=== PATIENT | male | born 1955 | race Caucasian/White ===

== ENCOUNTER → 2018-06-14 | Outpatient (CLI) | payer MEDICARE ==
--- NOTE | 2018-06-14 17:11 | XR ---
EXAMINATION TYPE: XR ankle complete LT DATE OF EXAM: 06/14/2018 COMPARISON: NONE HISTORY: Contusion. Pain TECHNIQUE: 3 views FINDINGS: Ankle mortise is anatomic. I see no fracture nor dislocation. There is mild lateral soft ti ssue swelling. IMPRESSION: Mild soft tissue swelling. No fracture.
--- NOTE | 2018-06-14 17:12 | XR ---
EXAMINATION TYPE: XR foot complete LT DATE OF EXAM: 06/14/2018 COMPARISON: NONE HISTORY: Contusion and pain TECHNIQUE: 3 views FINDINGS: I see no fracture nor dislocation. Metatarsals are intact. The joint spaces are normal. IMPRESSION: Negative left foot exam.
== END | disposition home or self-care (01) ==
LOC: RADXRYALE 16:23
PROVIDERS: ATTEND Physician Assistant Medical
DX: M79.672 Pain in left foot (principal); M25.572 Pain in left ankle and joints of left foot

== ENCOUNTER → 2018-07-19 | Outpatient (CLI) | payer MEDICARE ==
--- NOTE | 2018-07-19 14:35 | US ---
EXAMINATION TYPE: US venous doppler duplex LE BI DATE OF EXAM: 07/19/2018 2:19 PM COMPARISON: NONE CLINICAL HISTORY: 62-year-old male M79.604,M79.605 PAIN IN BOTH LEGS. Pain in bilateral legs, wound l eft foot. SIDE PERFORMED: Bilateral TECHNIQUE: The lower extremity deep venous system is examined utilizing real time linear array sonog eri with graded compression, doppler sonography and color-flow sonography. FINDINGS: VESSELS IMAGED: External Iliac Vein (EIV) Common Femoral Vein Deep Femoral Vein Greater Saphenous Vein * Femoral Vein Popliteal Vein Small Saphenous Vein * Proximal Calf Veins (* superficial vessels) Right Leg: Positive for DVT in the right CFV to the proximal calf veins Left Leg: Negative for DVT. No sonographic evidence for venous insufficiency. IMPRESSION: 1. Exam positive for DVT within the right lower extremity extending from the common femoral vein down into the upper calf. 2. No evidence for DVT within the left lower extremity imaged from the groin to the upper calf. Building Custodian called the ordering physician's office at the completion of the exam.
== END | disposition home or self-care (01) ==
LOC: RADUSWWP 13:46
PROVIDERS: ATTEND Podiatrist
DX: I82.4Z1 Acute embolism and thrombosis of unspecified deep veins of right distal lower extremity (principal); I82.411 Acute embolism and thrombosis of right femoral vein
CPT/HCPCS: 93970

== ENCOUNTER → 2019-06-29 | Outpatient (CLI) | payer MEDICARE ==
--- NOTE | 2019-07-04 15:16 | P.ARTDOP ---
Arterial Doppler LOWER EXTREMITY ARTERIAL DOPPLER: DATE OF SERVICE: 06/29/2019 Reason for study: Right leg pain. Doppler waveforms: Atypical throughout on the left. Atypical at the right femoral and monophasic below.. Pulse volume recording: []. Pressure gradients: The only measurement is the right ankle where there is a significant gradient. There is a gradient above the left low thigh and across the knee.. Ankle-brachial indices: 0.22 on the right and 0.54 on the left. Toe pressures: [] on the right, [] on the left Impression: Moderate left fem-pop disease with possible iliac component. Severe right fem-pop disease with significant right iliac component. Recommend consultation with vascular surgeon.
== END | disposition home or self-care (01) ==
LOC: RADUSWWP 13:47
PROVIDERS: ATTEND Family Medicine
DX: I77.89 Other specified disorders of arteries and arterioles (principal); E78.2 Mixed hyperlipidemia; I10 Essential (primary) hypertension
CPT/HCPCS: 93923

== ENCOUNTER 2019-12-21 15:23 | Inpatient (IN) | payer MEDICARE ==
--- NOTE | 2019-12-21 16:23 | ED ---
General Adult HPI - General Chief complaint: Shortness of Breath Stated complaint: PE Time Seen by Provider: 12/21/19 15:36 Source: EMS Mode of arrival: EMS Limitations: no limitations - History of Present Illness Initial comments: Dictation was produced using [employer] dictation software. please excuse any grammatical, word or spelling errors. Chief Complaint: 64-year-old male with past medical history of GERD, distal edema, hypertension COPD presents via transfer from [facility] for pulmonary embolus History of Present Illness: Patient is a 64-year-old male discharged from [facility] for pulmonary embolus. Patient has been having shortness of breath since Tuesday. They went to primary care physician for regular checkup. He was noted to have some wheezing. Patient is a daily smoker for several years. He was given breathing treatment and steroids. He was told to seek medical attention if he shortness of breath didn't improve. Today he began having some right anterior chest pain though sharp in nature and worse with deep inspiration. States the pain radiates to his left shoulder. He was evaluated at [facility] were he had a CT angios performed showing pulmonary embolus. Patient had small focal pulmonary embolus of the right lower lobe segmental branch subsegmental extension. Patient also had elevated troponin of 0.095. Patient was given nitroglycerin with improvement of symptoms. He denies any lower chin B symptoms. No history of blood clot. He does have history of skin cancer that was completely removed by excision. The ROS documented in this emergency department record has been reviewed and confirmed by me. Those systems with pertinent positive or negative responses have been documented in the HPI. All other systems are other negative and/or noncontributory. PHYSICAL EXAM: General Impression: Alert and oriented x3, not in acute distress HEENT: Normocephalic atraumatic, extra-ocular movements intact, pupils equal and reactive to light bilaterally, mucous membranes moist. Cardiovascular: Heart regular rate and rhythm, S1&S2 audible, no murmurs, rubs or gallops Chest: Diminished lung sounds with wheezing Abdomen: Bowel sounds present, abdomen soft, non-tender, non-distended, no organomegaly Musculoskeletal: Pulses present and equal in all extremities, no peripheral edema Motor: no focal deficits noted Neurological: CN II-XII grossly intact, no focal motor or sensory deficits noted Skin: Intact with no visualized rashes Psych: Normal affect and mood ED course: 64-year-old male presents to transfer from [facility] for pulmonary embolus. As upon arrival shows findings within acceptable limits. Patient is well-appearing. He denies any chest pain currently. Transfer documentation was reviewed in its entirety. Patient is not hypotensive. Labs from [facility] shows hemoglobin of 15.1, platelets of 251. White blood cell count of 12.47. Potassium 3.2, bicarb of 24, glucose 155, BUN 5, creatinine of 0.8, AST of 80, troponin of 0.095. Imaging studies were loaded into our electronic medical records. Discussed patient case with Dr. Tabares reports the patient is an appropriate patient for admission to hospital despite lack of EKOS. Patient's well-appearing. Patient be admitted. Discussed patient with Dr. Walsh was went except patient's care. Patient continued on heparin. EKG interpretation: Ventricular rate 89, sinus rhythm with frequent PVCs, AZ interval 182, QRS 76, QTC 513. No AZ prolongation, no QTC prolongation, no ST or T-wave changes noted. - Related Data Home Medications Medication Instructions Recorded Confirmed Atorvastatin [Lipitor] 20 mg PO DAILY 07/05/18 08/18/18 Cholecalciferol [Vitamin D3] 2,000 unit PO DAILY 07/05/18 08/18/18 Folic Acid 1 mg PO DAILY 07/05/18 08/18/18 Furosemide [Lasix] 40 mg PO DAILY 07/05/18 08/18/18 Multivitamin [Men's Multi-Vitamin] 1 each PO DAILY 07/05/18 08/18/18 [place]-3 Fatty Acids/Fish Oil [Fish 2 each PO DAILY 07/05/18 08/18/18 Oil 1,000 mg Softgel] Potassium Chloride [K-Tab ER] 10 meq PO DAILY 07/05/18 08/18/18 Ranitidine HCl [Zantac] 150 mg PO DAILY 07/05/18 08/18/18 Spironolactone 50 mg PO DAILY 07/05/18 08/18/18 cloNIDine HCL [Catapres] 0.2 mg PO DAILY 07/05/18 08/18/18 traMADol HCl [Ultram] 50 mg PO Q6HR PRN 07/05/18 08/18/18 Aspirin EC [Ecotrin Low Dose] 81 mg PO DAILY 08/04/18 08/18/18 Isosorbide Mononitrate ER [Imdur] 30 mg PO DAILY 08/04/18 08/18/18 Allergies Allergy/AdvReac Type Severity Reaction Status Date / Time lisinopril Allergy Swelling Verified 08/25/18 10:03 acetaminophen [From Tylenol] AdvReac LIVER Verified 08/25/18 10:03 PROBLEMS PER NSAIDS (Non-Steroidal AdvReac LIVER Verified 08/25/18 10:03 Anti-Inflamma PROBLEMS PER Review of Systems ROS Statement: Those systems with pertinent positive or pertinent negative responses have been documented in the HPI. ROS Other: All systems not noted in ROS Statement are negative. Past Medical History Past Medical History: GERD/Reflux, Hyperlipidemia, Hypertension, Liver Disease Additional Past Medical History / Comment(s): WOUND TO LT FOOT History of Any Multi-Drug Resistant Organisms: None Reported Additional Past Surgical History / Comment(s): COLONOSCOPY. BILAT CATARACTS REMOVED Past Anesthesia/Blood Transfusion Reactions: No Reported Reaction Past Psychological History: Anxiety Smoking Status: Current every day smoker Past Alcohol Use History: Daily Past Drug Use History: None Reported - Past Family History Mother Family Medical History: Hypertension Father Family Medical History: Hypertension General Exam Limitations: no limitations Course Vital Signs 12/21/19 15:26 Temperature 98.1 F Pulse Rate 65 Respiratory 20 Rate Blood Pressure 145/83 O2 Sat by Pulse 96 Oximetry Disposition Clinical Impression: Pulmonary emboli Disposition: ADMITTED IP TO THIS HOSP Condition: Fair Referrals: Omar Aguilar DO [Primary Care Provider] - 1-2 days Decision Time: 18:00
[2019-12-21] MEDS ORDERED: HEPARIN SODIUM,PORCINE 5,000 UNIT/ML 1 ML VIAL IV PRN (16:36)
[2019-12-21] MEDS ORDERED: ONDANSETRON 4 MG/2 ML VIAL IVP PRN (17:47)
[2019-12-21] MEDS ORDERED: NALOXONE 0.4 MG/ML 1 ML VIAL IV PRN (17:47)
[2019-12-21] MEDS ORDERED: SODIUM CHLORIDE 0.9% 1,000 ML IV SCH (18:00)
[2019-12-21] MEDS: HEPARIN SOD,PORK IN 0.45% NACL 25,000 UNIT in 0.45% NACL 1 250ML.BAG IV SCH (18:25)
--- NOTE | 2019-12-21 20:38 | HP ---
HISTORY AND PHYSICAL DATE OF SERVICE: 12/21/2019 CHIEF COMPLAINT: Shortness of breath. HISTORY OF PRESENT ILLNESS: This 63-year-old gentleman with a past medical history of hypertension, hyperlipidemia, history of liver disease, history of GERD, colonoscopy, history of anxiety being followed by Dr. Aguilar in the outpatient setting, not feeling well over the past several days. The patient had a cough and sputum and the patient was evaluated by primary care physician and was given steroids and bronchodilators and because of lack of improvement, the patient presented to [facility]. CT angio was done. The patient also complaining of deep respirations/pain. Patient also had some change in voice and as well as some stridor like breathing also. The patient had previous evaluation as well. The [facility] CTA showed a small pulmonary embolus in the right lower segment and patient admitted to the hospital for further evaluation and treatment. Troponins also indeterminate. There is no history of any fever, rigors or chills. No history of headache, loss of consciousness, seizures at this time. The patient also complaining of some vague chest pains. Otherwise, there is no history of trauma. PAST MEDICAL HISTORY: History of GERD, hypertension, hyperlipidemia, history of liver disease, history of left foot wound. MEDICATIONS: Prior to admission include home medication which are not confirmed include: 1. Ultram 50 mg q.6h p.r.n. 2. Clonidine 0.2 daily. 3. Aldactone 50 mg p.o. daily. 4. Zantac 150 mg p.o. daily. 6. Start-3 fatty acids. 7. Multivitamins one p.o. daily. 8. Imdur 30 mg p.o. daily. 9. Lasix 40 mg p.o. daily. 10.Folic acid 1 mg daily. 11.Vitamin D3 2000 daily. 12.Lipitor 20 mg p.o. daily. 13.Ecotrin 81 mg p.o. daily. ALLERGIES: LISINOPRIL, TYLENOL AND NSAIDS. FAMILY HISTORY: History of hypertension in the family. SOCIAL HISTORY: Continued smoking about at least 1 pack per day and a couple of beers every day according to him. REVIEW OF SYSTEMS: ENT: Diminished vision, diminished hearing. CARDIOVASCULAR SYSTEM: No angina or palpitations. RESPIRATORY: As mentioned earlier. GI as mentioned earlier. no dysuria or hematuria. NERVOUS SYSTEM: No numbness or weakness. ALLERGY/IMMUNOLOGY: No asthma or hayfever. MUSCULOSKELETAL as mentioned earlier. HEMATOLOGY/ONCOLOGY: No history of anemia. ENDOCRINE: No history of diabetes or hypothyroidism. CONSTITUTIONAL: As mentioned earlier. DERMATOLOGY: Negative. RHEUMATOLOGY negative. PSYCHIATRY as mentioned earlier. PHYSICAL EXAMINATION: The patient is alert and oriented times three. Pulse 90. Blood pressure is 134/99, respirations 16, temperature is normal. Pulse ox 97% on room air. HEENT: Oral mucosa moist. NECK is no jugular venous distention. No carotid bruit. No lymph node enlargement. Cardiovascular system: S1, S2 muffled. RESPIRATION: A few scattered rhonchi and crackles. Breath sounds diminished at the bases. Bilateral scattered rhonchi and crackles. The breathing efforts also increased. Stridor like noisy breathing present. Otherwise hoarseness of the voice also present. ABDOMEN: Soft, nontender. No mass palpable. LEGS: No edema. No swelling. NERVOUS SYSTEM: Higher functions as mentioned earlier. Moves all four limbs. No focal motor or sensory deficits. Lymphatics: No lymph nodes palpable in the neck, axillae or groin. SKIN: No ulcer, rash or bleeding. JOINTS: No active deforming arthropathy. LABS: Not available at this time. ASSESSMENT: 1. Shortness of breath, possibly chronic obstructive pulmonary disease acute exacerbation with acute purulent tracheobronchitis. 2. Acute pulmonary embolism right lower lobe. 3. History of continued ongoing nicotine dependence. 4. Troponin 0.095, indeterminate. 5. History of hypertension, hyperlipidemia. 6. History of chronic liver disease. 7. History of gastroesophageal reflux disease. 8. History of nicotine dependence. 9. History of anxiety. 10.History of ETOH. 11.FULL CODE. RECOMMENDATIONS AND DISCUSSION: In this 64-year-old gentleman who presented with multiple complex medical issues, we will monitor the patient closely, continue the current medications, management and symptomatic treatment. We will optimize bronchodilator treatment empiric antibiotics. IV heparin for pulmonary embolism. Consult Dr. Tabares. Otherwise, we will continue to monitor. Resume the home medications. Guarded prognosis because of multiple complex medical issues. Further recommendations to follow. A copy of dictation being forwarded to Dr. Aguilar who is the primary physician. MMODL / IJN: [id number] / MTDD
[2019-12-21 20:40] LABS: Glucose,Whole Blood 179 mg/dL (75-99)
[2019-12-21] MEDS: NICOTINE 14MG/24HR PATCH TRANSDERM SCH (20:43)
[2019-12-21] MEDS: PANTOPRAZOLE 40 MG/10 ML VIAL IVP SCH (20:47)
[2019-12-21] MEDS: methylPREDNISolone SOD SUCCI 125 MG/2 ML VIAL IV SCH (20:48)
[2019-12-21] MEDS: INSULIN ASPART (NovoLOG) 100 UNIT/ML VIAL SQ SCH (21:05)
[2019-12-21] MEDS ORDERED: POTASSIUM CHLORIDE ER 20 MEQ TAB.ER PO STA (21:51)
[2019-12-21] MEDS ORDERED: MAGNESIUM SULFATE-D5W PMX 1 GM in DEXTROSE/WATER 1 100ML.BAG IVPB ONE (22:00)
[2019-12-21] MEDS: BUDESONIDE 1 MG/2 ML NEBU INHALATION SCH (23:18)
[2019-12-21] MEDS: ALBUTEROL NEBULIZED 2.5 MG/3 ML INHALATION PRN (23:18)
[2019-12-21] MEDS: FORMOTEROL FUMARATE 20 MCG/2 ML NEBU INHALATION SCH (23:18)
[2019-12-22] MEDS: methylPREDNISolone SOD SUCCI 125 MG/2 ML VIAL IV SCH ×5 (00:12→23:10)
[2019-12-22 06:10] LABS: Glucose,Whole Blood 174 mg/dL (75-99)
[2019-12-22] MEDS: INSULIN ASPART (NovoLOG) 100 UNIT/ML VIAL SQ SCH ×5 (06:25→20:42)
[2019-12-22 06:30] LABS: Basophils % (A) 0 %; Eosinophils # (A) 0.1 k/uL (0-0.7); Eosinophils % (A) 0 %; HCT 38.5 % (39.0-53.0); HGB 13.3 gm/dL (13.0-17.5); Lymphocytes # (A) 1.2 k/uL (1.0-4.8); Lymphocytes % (A) 6 %; MCH 32.7 pg (25.0-35.0); MCHC 34.4 g/dL (31.0-37.0); Mean Platelet Volume 8.4; Monocytes # (A) 0.8 k/uL (0-1.0); Monocytes % (A) 4 %; Neutrophils # (A) 16.5 k/uL (1.3-7.7); Neutrophils % (A) 89 %; Platelet Count 260 k/uL (150-450); RBC 4.06 m/uL (4.30-5.90); RDW 12.6 % (11.5-15.5); WBC 18.6 k/uL (3.8-10.6)
[2019-12-22 06:33] LABS: MCV 94.9 fL (80.0-100.0)
--- NOTE | 2019-12-22 07:07 | XR ---
EXAMINATION TYPE: XR chest 1V portable DATE OF EXAM: 12/22/2019 CLINICAL HISTORY: Difficulty breathing progress study. TECHNIQUE: Single AP portable upright view of the chest is obtained. COMPARISON: Outside chest x-ray and CT chest from one day earlier FINDINGS: Background chronic emphysematous change with new left basilar alveolar and interstitial op acities. Right lung remains clear. Cardiac silhouette size remains within normal limits. Osseous stru ctures are demineralized. IMPRESSION: Chronic emphysematous change with new left basilar acute infiltrate.
[2019-12-22 07:11] LABS: ALT 31 U/L (4-49); AST 124 U/L (17-59); African American GFR (CKD) >90 (>60 ml/min/1.73 sqM); Albumin 3.5 g/dL (3.5-5.0); Alkaline Phosphatase 86 U/L (38-126); Anion Gap 14 mmol/L; Blood Urea Nitrogen 8 mg/dL (9-20); Calcium 8.6 mg/dL (8.4-10.2); Carbon Dioxide 22 mmol/L (22-30); Chloride 83 mmol/L (98-107); Glucose 158 mg/dL (74-99); Magnesium 1.7 mg/dL (1.6-2.3); Non-African American GFR(CKD) >90 (>60 ml/min/1.73 sqM); Potassium 3.4 mmol/L (3.5-5.1); Total Bilirubin 0.8 mg/dL (0.2-1.3); Total Protein 6.4 g/dL (6.3-8.2)
[2019-12-22] MEDS ORDERED: PANTOPRAZOLE 40 MG TABLET PO SCH (07:30)
[2019-12-22 08:06] LABS: Sodium 119 mmol/L (137-145)
[2019-12-22] MEDS ORDERED: SODIUM CHLORIDE 0.9% 1,000 ML IV SCH (08:15)
[2019-12-22] MEDS: FORMOTEROL FUMARATE 20 MCG/2 ML NEBU INHALATION SCH ×2 (08:35→19:30)
[2019-12-22] MEDS: ALBUTEROL NEBULIZED 2.5 MG/3 ML INHALATION PRN ×3 (08:35→19:30)
[2019-12-22] MEDS: BUDESONIDE 1 MG/2 ML NEBU INHALATION SCH ×2 (08:35→19:30)
--- NOTE | 2019-12-22 09:27 | P.CRDCN ---
History of Present Illness Consult date: 12/22/19 Requesting physician: Nima Walsh Reason for Consult (text): CAD?? Chief complaint: shortness of breath History of present illness: This is a pleasant 64-year-old gentleman with a past medical history of hypertension, PAD, smoking, family history of CAD, history of a right DVT in 2018. Previously [address] Dr. Hollis in the office for preoperative evaluation in 2018 at which time he underwent stress testing that showed no fixed or reversible perfusion defect, echocardiogram showed ejection fraction 50% with hypokinesis of the inferior wall and EKG at that time showed sinus rhythm with bigeminal PVCs. He has not followed up since. Presented to the emergency department in [facility] with complaints of significant shortness of breath that failed to improve with outpatient treatment. CT of the chest was done which showed small focal pulmonary embolism the right lower lobe segmental branches with subsegmental extension. Background moderate emphysematous changes without acute pulmonary process and possible underlying cirrhosis. He was placed on IV heparin and transferred here to [facility]. Vascular see the patient due to elevated troponin levels of 0.095 0.070. Patient will swab for influenza a MB which were both negative and [facility]. Other laboratory e valuation White blood cell count of 18,600, sodium 119, potassium 3.4, BUN of 8, creatinine 0.84, magnesium 1.7, AST 124, ALT 31 and alkaline phosphatase of 86. On examination, patient is sitting up in bed. He continues to complain of significant shortness of breath with a nonproductive cough. He denies any chest discomfort, palpitations, PND, or edema. Does complain of orthopnea. He has positional dizziness that is unchanged. EKG on admission showed sinus rhythm with nonspecific ST-T wave abnormalities and frequent PVCs. Blood pressure has been elevated with most recent 158/90. Past Medical History Past Medical History: GERD/Reflux, Hyperlipidemia, Hypertension, Liver Disease, Pneumonia, Pulmonary Embolus (PE) Additional Past Medical History / Comment(s): Arthritis History of Any Multi-Drug Resistant Organisms: None Reported Additional Past Surgical History / Comment(s): COLONOSCOPY. BILAT CATARACTS REMOVED Past Anesthesia/Blood Transfusion Reactions: No Reported Reaction Past Psychological History: Anxiety Smoking Status: Current every day smoker Past Alcohol Use History: Daily Additional Past Alcohol Use History / Comment(s): SMOKES 1 PPD SINCE ABOUT AGE 12. DRINKS 10 BEERS DAILY Past Drug Use History: Marijuana - Past Family History Mother Family Medical History: Hypertension Father History Unknown: Yes Family Medical History: Hypertension Medications and Allergies Home Medications Medication Instructions Recorded Confirmed Type Atorvastatin [Lipitor] 20 mg PO DAILY 07/05/18 12/21/19 History Cholecalciferol [Vitamin D3] 1,000 unit PO BID 07/05/18 12/21/19 History Furosemide [Lasix] 40 mg PO DAILY 07/05/18 12/21/19 History Multivitamin [Men's Multi-Vitamin] 1 tab PO DAILY 07/05/18 12/21/19 History [place]-3 Fatty Acids/Fish Oil [Fish 2 cap PO DAILY 07/05/18 12/21/19 History Oil 1,000 mg Softgel] Potassium Chloride [K-Tab ER] 10 meq PO DAILY 07/05/18 12/21/19 History Ranitidine HCl [Zantac] 150 mg PO DAILY 07/05/18 12/21/19 History Spironolactone 50 mg PO DAILY 07/05/18 12/21/19 History cloNIDine HCL [Catapres] 0.2 mg PO BID 07/05/18 12/21/19 History traMADol HCl [Ultram] 50 mg PO BID PRN 07/05/18 12/21/19 History Amoxic-Pot Clav 875-125Mg 1 tab PO BID 12/21/19 12/21/19 History [Augmentin 875-125] Clopidogrel Bisulfate [Plavix] 75 mg PO DAILY 12/21/19 12/21/19 History Metoprolol Tartrate [Lopressor] 50 mg PO DAILY 12/21/19 12/21/19 History diphenhydrAMINE [Benadryl] 25 mg PO DAILY PRN 12/21/19 12/21/19 History predniSONE See Taper PO DAILY 12/21/19 12/21/19 History Allergies Allergy/AdvReac Type Severity Reaction Status Date / Time lisinopril Allergy Swelling Verified 12/21/19 21:45 acetaminophen [From Tylenol] AdvReac LIVER Verified 12/21/19 21:45 PROBLEMS PER NSAIDS (Non-Steroidal AdvReac LIVER Verified 12/21/19 21:45 Anti-Inflamma PROBLEMS PER Physical Exam Vitals: Vital Signs Temp Pulse Pulse Resp BP BP Pulse Ox 12/22/19 09:02 104 H 12/22/19 08:53 110 H 12/22/19 08:52 110 H 12/22/19 08:38 106 H 96 12/22/19 04:00 98.0 F 100 19 158/90 96 12/22/19 00:00 97.6 F 100 19 155/92 98 12/21/19 23:40 107 H 12/21/19 23:32 107 H 12/21/19 23:21 104 H 12/21/19 20:00 97.9 F 78 19 140/84 163/89 98 12/21/19 19:30 90 30 H 125/94 97 12/21/19 19:00 92 31 H 126/102 96 12/21/19 18:34 97.9 F 78 19 163/89 98 12/21/19 18:30 107 H 28 H 141/110 98 12/21/19 18:00 90 16 134/99 96 12/21/19 17:30 96 22 130/80 97 12/21/19 17:00 92 17 127/90 98 12/21/19 16:30 94 16 123/99 99 12/21/19 16:00 92 16 149/87 98 12/21/19 15:29 96 12/21/19 15:26 98.1 F 65 20 145/83 96 Intake and Output 12/21/19 12/22/19 12/22/19 22:59 06:59 14:59 Intake Total 91.666 0 Output Total 250 Balance -250 91.666 0 Intake: Intake, IV Titration 91.666 Amount Heparin Sod,Pork in 0.45% 91.666 NaCl 25,000 unit In 0.45 % NaCl 1 250ml.bag @ 18 UNITS/KG/HR 13.064 mls/hr IV .Q19H9M [facility] Rx#: [id number] Oral 0 Output: Urine 250 Other: Voiding Method Urinal Urinal Weight 72.575 kg 65.6 kg PHYSICAL EXAMINATION: HEENT: Head is atraumatic, normocephalic. Pupils equal, round. Neck is supple. There is no elevated jugular venous pressure. HEART EXAMINATION: Heart sounds regular, S1 and S2 normal. No murmur or gallop heard. CHEST EXAMINATION: Lungs reveal diminished air entry bilaterally with diffuse wheezing throughout. No chest wall tenderness is noted on palpation or with deep breathing. ABDOMEN: Soft, nontender. Bowel sounds are heard. No organomegaly noted. EXTREMITIES: 2+ peripheral pulses with no evidence of peripheral edema and no calf tenderness noted. NEUROLOGIC patient is awake, alert and oriented x3. . Results 12/22/19 05:34 12/22/19 05:34 Cardiac Enzymes 12/22/19 12/22/19 Range/Units 05:34 05:34 AST 124 H (17-59) U/L Troponin I 0.070 H* (0.000-0.034) ng/mL Coagulation 12/22/19 Range/Units 00:44 APTT >200.0 H* (22.0-30.0) sec CBC 12/22/19 Range/Units 05:34 WBC 18.6 H (3.8-10.6) k/uL RBC 4.06 L (4.30-5.90) m/uL Hgb 13.3 (13.0-17.5) gm/dL Hct 38.5 L (39.0-53.0) % Plt Count 260 (150-450) k/uL Comprehensive Metabolic Panel 12/22/19 Range/Units 05:34 Sodium 119 L* (137-145) mmol/L Potassium 3.4 L (3.5-5.1) mmol/L Chloride 83 L (98-107) mmol/L Carbon Dioxide 22 (22-30) mmol/L BUN 8 L (9-20) mg/dL Creatinine 0.84 (0.66-1.25) mg/dL Glucose 158 H (74-99) mg/dL Calcium 8.6 (8.4-10.2) mg/dL AST 124 H (17-59) U/L ALT 31 (4-49) U/L Alkaline Phosphatase 86 (38-126) U/L Total Protein 6.4 (6.3-8.2) g/dL Albumin 3.5 (3.5-5.0) g/dL Current Medications Generic Name Dose Route Start Last Admin Trade Name Freq PRN Reason Stop Dose Admin Albuterol Sulfate 2.5 mg 12/21/19 22:53 12/22/19 08:35 Ventolin Nebulized INHALATION 2.5 mg RT-Q2H PRN Administration Shortness Of Breath Or Wheezing Budesonide 1 mg 12/21/19 20:00 12/22/19 08:35 Pulmicort INHALATION 1 mg RT-BID [facility] Administration Folic Acid 1 mg 12/22/19 12:00 Folic Acid PO DAILY@1200 [facility] Formoterol Fumarate 20 mcg 12/21/19 20:00 12/22/19 08:35 Perforomist INHALATION 20 mcg RT-BID [facility] Administration Heparin Sodium (Porcine) 0 unit 12/21/19 16:36 Heparin IV PER PROTOCOL PRN Low PTT Protocol Heparin Sodium/Sodium Chloride 250 mls @ 13.064 mls/hr 12/21/19 16:45 12/21 02:24 25,000 unit/ Sodium Chloride IV 15 units/kg/hr .Q19H9M [facility] 10.886 mls/hr Titration Protocol 18 UNITS/KG/HR Sodium Chloride 1,000 mls @ 20 mls/hr 12/21/19 18:00 12/21/19 18:26 Saline 0.9% IV 20 mls/hr .Q24H [facility] Administration Ceftriaxone Sodium 1 gm/ 50 mls @ 100 mls/hr 12/21/19 19:15 12/21/19 20:43 Sodium Chloride IVPB 100 mls/hr Q24HR [facility] Administration Sodium Chloride 1,000 mls @ 75 mls/hr 12/22/19 08:15 Saline 0.9% IV .[id number] [facility] Insulin Aspart 0 unit 12/21/19 21:00 12/22/19 06:25 Novolog SQ 4 unit ACHS [facility] Administration Protocol Lorazepam 0.5 mg 12/21/19 19:09 Ativan PO Q8HR PRN Anxiety Methylprednisolone Sodium Succinate 60 mg 12/21/19 19:15 12/22/19 06:24 Solu-Medrol IV 60 mg Q6HR [facility] Administration Multivitamins 1 each 12/22/19 12:00 Theragran PO DAILY@1200 [facility] Naloxone HCl 0.2 mg 12/21/19 17:47 Narcan IV Q2M PRN Opioid Reversal Nicotine 1 patch 12/21/19 19:15 12/21/19 20:43 Habitrol 14mg/24hr Patch TRANSDERM 1 patch DAILY [facility] Administration Ondansetron HCl 4 mg 12/21/19 17:47 Zofran IVP Q8HR PRN Nausea And Vomiting Pantoprazole Sodium 40 mg 12/21/19 21:00 12/21/19 20:47 Protonix IVP 40 mg BID [facility] Administration Thiamine HCl 100 mg 12/22/19 12:00 Vitamin B-1 PO DAILY@1200 [facility] Intake and Output 12/21/19 12/22/19 12/22/19 22:59 06:59 14:59 Intake Total 91.666 0 Output Total 250 Balance -250 91.666 0 Intake: Intake, IV Titration 91.666 Amount Heparin Sod,Pork in 0.45% 91.666 NaCl 25,000 unit In 0.45 % NaCl 1 250ml.bag @ 18 UNITS/KG/HR 13.064 mls/hr IV .Q19H9M [facility] Rx#: [id number] Oral 0 Output: Urine 250 Other: Voiding Method Urinal Urinal Weight 72.575 kg 65.6 kg 12/22/19 05:34 12/22/19 05:34 EKG Interpretations (text) Sinus rhythm nonspecific ST-T wave abnormalities and frequent PVCs Assessment and Plan Assessment: #1 right lower lobe pulmonary embolism #2 history of right lower extremity DVT in 2018 #3 history of PAD, unclear if patient had intervention for this in the past or not #4 hypertension #5 nicotine dependence #6 hyponatremia #7 COPD #8 elevated troponin, likely secondary to pulmonary embolism Plan: From computer game designer perspective, obtain a 2-D echo with Doppler. Continues to trend troponins. Resume beta magdalena. We will continue to follow the patient and provide further recommendations accordingly. JBOSS ARCHITECT note has been reviewed, I agree with a documented findings and plan of care. Patient was seen and examined.
[2019-12-22] MEDS: PANTOPRAZOLE 40 MG/10 ML VIAL IVP SCH ×2 (09:49→20:42)
[2019-12-22] MEDS: NICOTINE 14MG/24HR PATCH TRANSDERM SCH (09:50)
[2019-12-22] MEDS: METOPROLOL TARTRATE 25 MG TAB PO SCH ×2 (09:50→20:42)
[2019-12-22] MEDS: FOLIC ACID 1 MG TAB PO SCH (11:21)
[2019-12-22] MEDS: THIAMINE 100 MG TAB PO SCH (11:21)
[2019-12-22] MEDS: MULTIVITAMINS, THERA 1 EACH TAB PO SCH (11:21)
[2019-12-22 12:06] LABS: Glucose,Whole Blood 198 mg/dL (75-99)
--- NOTE | 2019-12-22 13:47 | P.CNPUL ---
History of Present Illness Consult date: 12/22/19 Reason for consult: dyspnea History of present illness: 64-year-old male patient, chronic smoker, chronic alcoholic with drinks at least 10 beers on a daily basis, has history of right lower extremity DVT back in 2018 and nonmedicated any form of anticoagulation, has history of peripheral vascular disease and hypertension. Patient is also known to have COPD. The patient came into the hospital because of worsening shortness of breath. He initially presented to an outside hospital where a CT angiogram was done at [facility] and the patient was diagnosed having a subsegmental pulmonary embolism in the right lower lobe pulmonary artery branch. There was also some background emphysema that was moderate in severity and possible changes of liver cirrhosis. The patient was started on IV heparin following that he was transferred to us. No hemodynamic instability. The patient's troponins are 0.09 and 0.07 respectively 2. Influenza screen was negative. White cell count was 18.6 at time of admission. Renal function was stable with a creatinine of 0.8. Sodium level was 117 and the patient was started on normal saline. Despite the hyponatremia, there was no significant altered mentation. The patient has no signs of any confusion or delirium at this point in time. He denies having any chest pain. Is having some increased shortness of breath. He has bronchospastic. He has also noticed breathing, and inspiratory stridor was questioned. He has also developed hoarseness in his voice. CAT scan of the chest was again reviewed and it shows patent trachea. There is questionable abnormality in the left vocal cord however I'm not absolutely certain with this finding. EKG showing nonspecific ST segment changes. There are frequent PVCs. The patient is producing adequate amount of urine output for now. He is on IV heparin. Review of Systems Constitutional: Reports fatigue, Reports poor appetite, Reports weakness, Reports weight loss Eyes: denies as per HPI, denies blurred vision, denies bulging eye, denies decreased vision, denies diplopia, denies discharge, denies dry eye, denies irritation, denies itching, denies pain, denies photophobia, denies loss of peripheral vision, denies loss of vision, denies tunnel vision/blind spots Ears: deny: decreased hearing, ear discharge, earache, tinnitus Ears, nose, mouth and throat: Reports hoarseness Breasts: absent: as per HPI, gynecomastia Cardiovascular: Reports decreased exercise tolerance, Reports dyspnea on exertion, Reports shortness of breath Respiratory: Reports cough, Reports dyspnea, Reports wheezing Gastrointestinal: Reports as per HPI Genitourinary: Reports as per HPI Musculoskeletal: Reports as per HPI Musculoskeletal: absent: ankle pain, ankle stiffness, ankle swelling Integumentary: Reports as per HPI Neurological: Reports as per HPI Psychiatric: Reports as per HPI Endocrine: Reports as per HPI Hematologic/Lymphatic: Reports as per HPI Allergic/Immunologic: Reports as per HPI Past Medical History Past Medical History: COPD, Deep Vein Thrombosis (DVT), GERD/Reflux, Hyperlipidemia, Hypertension, Liver Disease, Pneumonia, Pulmonary Embolus (PE) Additional Past Medical History / Comment(s): Arthritis History of Any Multi-Drug Resistant Organisms: None Reported Additional Past Surgical History / Comment(s): COLONOSCOPY. BILAT CATARACTS REMOVED Past Anesthesia/Blood Transfusion Reactions: No Reported Reaction Past Psychological History: Anxiety Smoking Status: Current every day smoker Past Alcohol Use History: Daily Additional Past Alcohol Use History / Comment(s): SMOKES 1 PPD SINCE ABOUT AGE 12. DRINKS 10 BEERS DAILY Past Drug Use History: Marijuana - Past Family History Mother Family Medical History: Hypertension Father History Unknown: Yes Family Medical History: Hypertension Medications and Allergies Home Medications Medication Instructions Recorded Confirmed Type Atorvastatin [Lipitor] 20 mg PO DAILY 07/05/18 12/21/19 History Cholecalciferol [Vitamin D3] 1,000 unit PO BID 07/05/18 12/21/19 History Furosemide [Lasix] 40 mg PO DAILY 07/05/18 12/21/19 History Multivitamin [Men's Multi-Vitamin] 1 tab PO DAILY 07/05/18 12/21/19 History [place]-3 Fatty Acids/Fish Oil [Fish 2 cap PO DAILY 07/05/18 12/21/19 History Oil 1,000 mg Softgel] Potassium Chloride [K-Tab ER] 10 meq PO DAILY 07/05/18 12/21/19 History Ranitidine HCl [Zantac] 150 mg PO DAILY 07/05/18 12/21/19 History Spironolactone 50 mg PO DAILY 07/05/18 12/21/19 History cloNIDine HCL [Catapres] 0.2 mg PO BID 07/05/18 12/21/19 History traMADol HCl [Ultram] 50 mg PO BID PRN 07/05/18 12/21/19 History Amoxic-Pot Clav 875-125Mg 1 tab PO BID 12/21/19 12/21/19 History [Augmentin 875-125] Clopidogrel Bisulfate [Plavix] 75 mg PO DAILY 12/21/19 12/21/19 History Metoprolol Tartrate [Lopressor] 50 mg PO DAILY 12/21/19 12/21/19 History diphenhydrAMINE [Benadryl] 25 mg PO DAILY PRN 12/21/19 12/21/19 History predniSONE See Taper PO DAILY 12/21/19 12/21/19 History Allergies Allergy/AdvReac Type Severity Reaction Status Date / Time lisinopril Allergy Swelling Verified 12/21/19 21:45 acetaminophen [From Tylenol] AdvReac LIVER Verified 12/21/19 21:45 PROBLEMS PER NSAIDS (Non-Steroidal AdvReac LIVER Verified 12/21/19 21:45 Anti-Inflamma PROBLEMS PER Physical Exam Vitals: Vital Signs Temp Pulse Pulse Pulse Resp BP BP 12/22/19 12:09 110 H 12/22/19 12:01 108 H 12/22/19 09:02 104 H 12/22/19 08:53 110 H 12/22/19 08:52 110 H 12/22/19 08:38 106 H 12/22/19 08:25 97.5 F L 110 H 110 H 18 154/95 12/22/19 04:00 98.0 F 100 19 158/90 12/22/19 00:00 97.6 F 100 19 155/92 12/21/19 23:40 107 H 12/21/19 23:32 107 H 12/21/19 23:21 104 H 12/21/19 20:00 97.9 F 78 19 140/84 163/89 12/21/19 19:30 90 30 H 125/94 12/21/19 19:00 92 31 H 126/102 12/21/19 18:34 97.9 F 78 19 163/89 12/21/19 18:30 107 H 28 H 141/110 12/21/19 18:00 90 16 134/99 12/21/19 17:30 96 22 130/80 12/21/19 17:00 92 17 127/90 12/21/19 16:30 94 16 123/99 12/21/19 16:00 92 16 149/87 12/21/19 15:29 12/21/19 15:26 98.1 F 65 20 145/83 Pulse Ox 12/22/19 12:09 12/22/19 12:01 12/22/19 09:02 12/22/19 08:53 12/22/19 08:52 12/22/19 08:38 96 12/22/19 08:25 97 12/22/19 04:00 96 12/22/19 00:00 98 12/21/19 23:40 12/21/19 23:32 12/21/19 23:21 12/21/19 20:00 98 12/21/19 19:30 97 12/21/19 19:00 96 12/21/19 18:34 98 12/21/19 18:30 98 12/21/19 18:00 96 12/21/19 17:30 97 12/21/19 17:00 98 12/21/19 16:30 99 12/21/19 16:00 98 12/21/19 15:29 96 12/21/19 15:26 96 Intake and Output 12/21/19 12/22/19 12/22/19 22:59 06:59 14:59 Intake Total 91.666 100 Output Total 250 Balance -250 91.666 100 Intake: Intake, IV Titration 91.666 Amount Heparin Sod,Pork in 0.45% 91.666 NaCl 25,000 unit In 0.45 % NaCl 1 250ml.bag @ 18 UNITS/KG/HR 13.064 mls/hr IV .[id number] [facility] Rx#: [id number] Oral 100 Output: Urine 250 Other: Voiding Method Urinal Urinal Weight 72.575 kg 65.6 kg Gen. appearance the patient looks quite malnourished during weak and cachectic. Nonacute distress. No altered mentation. He is a poor historian yet there is no altered mentation with confusion at this point in time. Head exam was generally normal. There was no scleral icterus or corneal arcus. Mucous membranes were moist. Neck was supple and without jugular venous distension, thyromegaly, or carotid bruits. Carotids were easily palpable bilaterally. There was no adenopathy. There is some questionable noisy breathing during inspiration and guarded and neck area, and this obviously raises the concern for a stridor. Lungs sounds are diminished and there is diffuse expiratory wheezes throughout the lung his bilaterally along with prolongation of exhalation phase of breathing. Cardiac exam revealed the PMI to be normally situated and sized. The rhythm was regular and no extrasystoles were noted during several minutes of auscultation. The first and second heart sounds were normal and physiologic splitting of the second heart sound was noted. There were no murmurs, rubs, clicks, or gallops. Abdominal exam revealed normal bowel sounds. The abdomen was soft, non-tender, and without masses, organomegaly, or appreciable enlargement of the abdominal aorta. Examination of the extremities revealed easily palpable radial, femoral and pedal pulses. There was no cyanosis, clubbing or edema. Examination of the skin revealed no evidence of significant rashes, suspicious appearing nevi or other concerning lesions. Neurologically awake and alert. Poor historian yet there is no focal neurological deficits. Results - Laboratory Findings CBC and BMP: 12/22/19 05:34 12/22/19 11:15 Abnormal lab findings: Abnormal Labs 12/21/19 12/22/19 12/22/19 20:38 00:44 05:34 WBC 18.6 H RBC 4.06 L Hct 38.5 L Neutrophils # 16.5 H APTT >200.0 H* Sodium Potassium Chloride BUN Glucose POC Glucose (mg/dL) 179 H Osmolality AST Troponin I 12/22/19 12/22/19 12/22/19 05:34 05:34 06:09 WBC RBC Hct Neutrophils # APTT Sodium 119 L* Potassium 3.4 L Chloride 83 L BUN 8 L Glucose 158 H POC Glucose (mg/dL) 174 H Osmolality AST 124 H Troponin I 0.070 H* 12/22/19 12/22/19 12/22/19 08:38 11:15 11:54 WBC RBC Hct Neutrophils # APTT 170.7 H* Sodium 117 L* Potassium Chloride BUN Glucose POC Glucose (mg/dL) Osmolality 248 L* AST Troponin I 12/22/19 11:59 WBC RBC Hct Neutrophils # APTT Sodium Potassium Chloride BUN Glucose POC Glucose (mg/dL) 198 H Osmolality AST Troponin I - Diagnostic Findings Chest x-ray: image reviewed CT scan - chest: image reviewed Assessment and Plan Plan: 1 acute COPD exacerbation with secondary shortness of breath 2 pulmonary embolism. There is a questionable filling defect in the subsegmental right lower lobe pulmonary artery branch and the patient is currently on IV heparin. He has previous history of DVT in 2018 and he wasn't and take any form of anticoagulation. 3 questionable stridor and left vocal cord abnormality based on the CAT scan findings. 4 hyponatremia with a sodium level of 117 at time of admission. This is most likely related to excessive beer drinking/beer [place] and the sodium level is currently up to 119. Asymptomatic despite his lower sodium level suggestive of chronic hyponatremia 5 history of DVT of the right lower extremity 2018 6 smoker 7 alcoholism 8 questionable liver cirrhosis based on CAT scan findings 9 abnormal troponin without any significant EKG changes or chest pain Plan Continue IV heparin Check d-dimer Check Doppler of the lower extremities Gentle hydration with normal saline at the rate of 75 mL an hour and monitor the sodium level IV Solu-Medrol DuoNeb neb last treatment [id number] CAT scan of the neck Possible bronchoscopy if stridor becomes an ongoing issue/concern Watch for any signs of delirium tremens
[2019-12-22 13:53] LABS: Uric Acid 4.3 mg/dL (3.5-8.5)
[2019-12-22] MEDS ORDERED: diphenhydrAMINE 25 MG CAP PO PRN (14:31)
--- NOTE | 2019-12-22 15:15 | P.NPCON ---
History of Present Illness - Reason for Consult Consult date: 12/22/19 hyponatremia - Chief Complaint Transferred from outside facility with pulmonary embolism - History of Present Illness 64-year-old gentleman had cough and upper respiratory infection seen primary car e physician last week. He was prescribed steroids. He started feeling unwell and lethargic yesterday on Tuesday and went to [facility]. In [facility] he was diagnosed with pulmonary embolism on CTA and started on heparin drip. His sodium was 119 and transferred here. He has no previous history of hyponatremia with a sodium of 139 on 12/15/2019. He admits drinking about 3 L of sweet tea every day. He also takes 40 mg of Lasix. Denies any nausea vomiting diarrhea. No history of hydrochlorothiazide use, antipsychotics or antidepressants. No history of malignancy. He was started on normal saline his sodium dropped to 117. He has long history of smoking and alcohol abuse. Review of Systems Constitutional: Reports as per HPI Past Medical History Past Medical History: COPD, Deep Vein Thrombosis (DVT), GERD/Reflux, Hyperlipidemia, Hypertension, Liver Disease, Pneumonia, Pulmonary Embolus (PE) Additional Past Medical History / Comment(s): Arthritis History of Any Multi-Drug Resistant Organisms: None Reported Additional Past Surgical History / Comment(s): COLONOSCOPY. BILAT CATARACTS REMOVED Past Anesthesia/Blood Transfusion Reactions: No Reported Reaction Past Psychological History: Anxiety Smoking Status: Current every day smoker Past Alcohol Use History: Daily Additional Past Alcohol Use History / Comment(s): SMOKES 1 PPD SINCE ABOUT AGE 12. DRINKS 10 BEERS DAILY Past Drug Use History: Marijuana - Past Family History Mother Family Medical History: Hypertension Father History Unknown: Yes Family Medical History: Hypertension Medications and Allergies Home Medications Medication Instructions Recorded Confirmed Type Atorvastatin [Lipitor] 20 mg PO DAILY 07/05/18 12/21/19 History Cholecalciferol [Vitamin D3] 1,000 unit PO BID 07/05/18 12/21/19 History Furosemide [Lasix] 40 mg PO DAILY 07/05/18 12/21/19 History Multivitamin [Men's Multi-Vitamin] 1 tab PO DAILY 07/05/18 12/21/19 History [place]-3 Fatty Acids/Fish Oil [Fish 2 cap PO DAILY 07/05/18 12/21/19 History Oil 1,000 mg Softgel] Potassium Chloride [K-Tab ER] 10 meq PO DAILY 07/05/18 12/21/19 History Ranitidine HCl [Zantac] 150 mg PO DAILY 07/05/18 12/21/19 History Spironolactone 50 mg PO DAILY 07/05/18 12/21/19 History cloNIDine HCL [Catapres] 0.2 mg PO BID 07/05/18 12/21/19 History traMADol HCl [Ultram] 50 mg PO BID PRN 07/05/18 12/21/19 History Amoxic-Pot Clav 875-125Mg 1 tab PO BID 12/21/19 12/21/19 History [Augmentin 875-125] Clopidogrel Bisulfate [Plavix] 75 mg PO DAILY 12/21/19 12/21/19 History Metoprolol Tartrate [Lopressor] 50 mg PO DAILY 12/21/19 12/21/19 History diphenhydrAMINE [Benadryl] 25 mg PO DAILY PRN 12/21/19 12/21/19 History predniSONE See Taper PO DAILY 12/21/19 12/21/19 History Allergies Allergy/AdvReac Type Severity Reaction Status Date / Time lisinopril Allergy Swelling Verified 12/21/19 21:45 acetaminophen [From Tylenol] AdvReac LIVER Verified 12/21/19 21:45 PROBLEMS PER NSAIDS (Non-Steroidal AdvReac LIVER Verified 12/21/19 21:45 Anti-Inflamma PROBLEMS PER Physical Exam Vitals: Vital Signs Temp Pulse Pulse Pulse Resp BP BP 12/22/19 12:09 110 H 12/22/19 12:01 108 H 12/22/19 09:02 104 H 12/22/19 08:53 110 H 12/22/19 08:52 110 H 12/22/19 08:38 106 H 12/22/19 08:25 97.5 F L 110 H 110 H 18 154/95 12/22/19 04:00 98.0 F 100 19 158/90 12/22/19 00:00 97.6 F 100 19 155/92 12/21/19 23:40 107 H 12/21/19 23:32 107 H 12/21/19 23:21 104 H 12/21/19 20:00 97.9 F 78 19 140/84 163/89 12/21/19 19:30 90 30 H 125/94 12/21/19 19:00 92 31 H 126/102 12/21/19 18:34 97.9 F 78 19 163/89 12/21/19 18:30 107 H 28 H 141/110 12/21/19 18:00 90 16 134/99 12/21/19 17:30 96 22 130/80 12/21/19 17:00 92 17 127/90 12/21/19 16:30 94 16 123/99 12/21/19 16:00 92 16 149/87 12/21/19 15:29 12/21/19 15:26 98.1 F 65 20 145/83 Pulse Ox 12/22/19 12:09 12/22/19 12:01 12/22/19 09:02 12/22/19 08:53 12/22/19 08:52 12/22/19 08:38 96 12/22/19 08:25 97 12/22/19 04:00 96 12/22/19 00:00 98 12/21/19 23:40 12/21/19 23:32 12/21/19 23:21 12/21/19 20:00 98 12/21/19 19:30 97 12/21/19 19:00 96 12/21/19 18:34 98 12/21/19 18:30 98 12/21/19 18:00 96 12/21/19 17:30 97 12/21/19 17:00 98 12/21/19 16:30 99 12/21/19 16:00 98 12/21/19 15:29 96 12/21/19 15:26 96 Intake and Output 12/22/19 12/22/19 12/22/19 06:59 14:59 22:59 Intake Total 91.666 100 Balance 91.666 100 Intake: Intake, IV Titration 91.666 Amount Heparin Sod,Pork in 0.45% 91.666 NaCl 25,000 unit In 0.45 % NaCl 1 250ml.bag @ 18 UNITS/KG/HR 13.064 mls/hr IV .Q19H9M [facility] Rx#: [id number] Oral 100 Other: Voiding Method Urinal Weight 65.6 kg No acute distress S1-S2 heard Decreased breath sounds Abdomen soft No edema Results - Lab Results Most recent lab results Calcium 8.6 mg/dL (8.4-10.2) 12/22/19 05:34 Magnesium 1.7 mg/dL (1.6-2.3) 12/22/19 05:34 12/22/19 05:34 12/22/19 11:15 Assessment and Plan Assessment: #1 chronic hypotonic 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 #2 COPD with underlying tracheobronchitis #3 pulmonary embolism #4 hypokalemia #5 essential hypertension #6 metabolic acidosis Plan: #1 stop normal saline #2 check BMP. Fluid restriction of 1500 ML's per day. #3 monitor BMP every 6 hours #4 increase in serum sodium of 6-9 in 24 hours.
[2019-12-22 15:50] LABS: African American GFR (CKD) >90 (>60 ml/min/1.73 sqM); Anion Gap 12 mmol/L; Blood Urea Nitrogen 12 mg/dL (9-20); Calcium 8.3 mg/dL (8.4-10.2); Carbon Dioxide 20 mmol/L (22-30); Chloride 84 mmol/L (98-107); Glucose 131 mg/dL (74-99); Magnesium 1.7 mg/dL (1.6-2.3); Non-African American GFR(CKD) 83 (>60 ml/min/1.73 sqM)
[2019-12-22 15:54] LABS: Potassium 3.6 mmol/L (3.5-5.1); Sodium 116 mmol/L (137-145)
--- NOTE | 2019-12-22 16:08 | US ---
EXAMINATION TYPE: US venous doppler duplex LE DATE OF EXAM: 12/22/2019 2:17 PM COMPARISON: US CLINICAL HISTORY: PE. known PE, history of DVT. Patient on heparin. SIDE PERFORMED: Bilateral TECHNIQUE: The lower extremity deep venous system is examined utilizing real time linear array sonog eri with graded compression, doppler sonography and color-flow sonography. VESSELS IMAGED: External Iliac Vein (EIV) Common Femoral Vein Deep Femoral Vein Greater Saphenous Vein * Femoral Vein Popliteal Vein Small Saphenous Vein * Proximal Calf Veins (* superficial vessels) Right Leg: Appearance of chronic DVT. Small caliber vessels with intimal wall thickening. There are collaterals noted. There is flow throughout. Left Leg: Negative for DVT IMPRESSION: No evidence of acute deep vein thrombosis. There is evidence for chronic right leg deep v ein thrombosis.
--- NOTE | 2019-12-22 16:16 | CT ---
EXAMINATION TYPE: CT neck chest without con DATE OF EXAM: 12/22/2019 COMPARISON: Chest CT scan yesterday. HISTORY: R/o strider. Hx PE. CT DLP: 512.8 mGycm Automated exposure control for dose reduction was used. There is mucosal thickening in the right maxillary sinus. There is fairly normal aeration of the mast oid sinuses. The parotid glands are symmetric. Submandibular salivary glands are symmetric. There is extensive atherosclerotic calcification in the carotid arteries. Prevertebral soft tissues appear nor mal. Epiglottis is normal. Tongue appears normal. There is no evidence of a pharyngeal mass. Tonsils and adenoids appear normal. There is subglottic tracheal narrowing with some circumferential mucosal thickening. This is slightly more on the left side. On image 47 the airway is narrowed to 3 mm. IMPRESSION: Subglottic tracheal narrowing that appears worse than [place] CT scan of the chest from yesterday.
[2019-12-22] MEDS: HEPARIN SOD,PORK IN 0.45% NACL 25,000 UNIT in 0.45% NACL 1 250ML.BAG IV SCH (16:47)
[2019-12-22] MEDS: POTASSIUM CHLORIDE ER 20 MEQ TAB.ER PO SCH (16:47)
--- NOTE | 2019-12-22 16:48 | ECHOF ---
Referral Reason:PE MEASUREMENTS -------- HEIGHT: 180.3 cm WEIGHT: 65.3 kg BP: 158/90 RVIDd: 3.2 cm (< 3.3) IVSd: 1.3 cm (0.6 - 1.1) LVIDd: 3.3 cm (3.9 - 5.3) LVPWd: 1.2 cm (0.6 - 1.1) IVSs: 1.7 cm LVIDs: 2.4 cm LVPWs: 1.5 cm LA Diam: 2.6 cm (2.7 - 3.8) Ao Diam: 3.1 cm (2.0 - 3.7) AV Cusp: 1.6 cm (1.5 - 2.6) MV EXCURSION: 11.540 mm (> 18.000) MV EF SLOPE: 22 mm/s (70 - 150) EPSS: 2.5 cm MV E Sunil: 1.06 m/s MV DecT: 110 ms MV A Sunil: 0.77 m/s MV E/A Ratio: 1.37 RAP: 5.00 mmHg RVSP: 35.07 mmHg FINDINGS -------- Sinus rhythm with extra systolic beats. This was a technically adequate study. The left ventricular size is normal. There is mild concentric left ventricular hypertrophy. Overa ll left ventricular systolic function is low-normal with, an EF between 50 - 55 %. The right ventricle is normal in size. The left atrial size is normal. The right atrium was not well visualized. Interatrial and interventricular septum intact. The aortic valve is trileaflet, and appears structurally normal. No aortic stenosis or regurgitation. The mitral valve is normal. There is trace to mild mitral regurgitation. Mild tricuspid regurgitation present. There is mild pulmonary hypertension. The right ventricular systolic pressure, as measured by Doppler, is 35.07mmHg. The pulmonic valve was not well visualized. There is no pulmonic regurgitation present. The aortic root size is normal. IVC Not well visulized. There is no pericardial effusion. CONCLUSIONS -------- 1. Sinus rhythm with extra systolic beats. 2. This was a technically adequate study. 3. The left ventricular size is normal. 4. There is mild concentric left ventricular hypertrophy. 5. Overall left ventricular systolic function is low-normal with, an EF between 50 - 55 %. 6. The left atrial size is normal. 7. The right atrium was not well visualized. 8. The aortic valve is trileaflet, and appears structurally normal. No aortic stenosis or regurgitati on. 9. The mitral valve is normal. 10. There is trace to mild mitral regurgitation. 11. Mild tricuspid regurgitation present. 12. There is mild pulmonary hypertension. 13. The pulmonic valve was not well visualized. 14. IVC Not well visulized. 15. There is no pericardial effusion. HEATER INSTALLER: Steph iVzcaino RDCS
[2019-12-22 16:56] LABS: Glucose,Whole Blood 161 mg/dL (75-99)
[2019-12-22] MEDS ORDERED: MAGNESIUM SULFATE-D5W PMX 1 GM in DEXTROSE/WATER 1 100ML.BAG IVPB ONE (17:50)
--- NOTE | 2019-12-22 17:57 | PN ---
PROGRESS NOTE DATE OF SERVICE: 12/22/2019 This 64-year-old gentleman admitted with shortness of breath, possibly COPD acute exacerbation also had active stridor also at this time. Cardiology has seen the patient. The patient also had acute pulmonary embolism. The patient also had DVT also. Cardiology recommended a 2D echo with Doppler. The patient also had some elevated troponins which was 0.07 at this time. The patient on heparin drip. Patient also developed severe hyponatremia at 119 and 178, was more than 130 a few days ago. The serum osmolality is only 248. Nephrology has been consulted. The CT scan of the chest was done elsewhere in [place]. CT scan of the neck has been recommended and possible bronchoscopy recommended by Dr. Tabares. PAST MEDICAL HISTORY: Reviewed. REVIEW OF SYSTEMS: HEENT as mentioned earlier. Cardiovascular as mentioned earlier. Respiration as mentioned earlier. GI no nausea or vomiting. : As mentioned earlier. NERVOUS SYSTEM: As mentioned earlier. CURRENT MEDICATIONS: Reviewed and include: 1. Ventolin 2.5 Q 4 p.r.n. 2. Pulmicort 1 mg b.i.d. 3. Rocephin 1 g daily. 4. Perforomist 20 mcg b.i.d. 5. Heparin drip. 6. NovoLog scale. 7. Ativan. 8. Solu-Medrol 60 IV q.6 hours. 9. Lopressor. 10.Multivitamins. 11.Narcan. 12.Habitrol. 13.Protonix. 14.Vitamin B1. PHYSICAL EXAM: Patient is alert, oriented x3. Pulse 110. Blood pressure is 154/94, respiration 18, temperature 97.4, pulse ox 97% on 2 L. HEENT: Conjunctivae normal. Neck is no JVD. CARDIOVASCULAR SYSTEM: S1, S2 muffled. RESPIRATORY SYSTEM: Breath sounds diminished at the bases. Bilateral scattered rhonchi and crackles. Expiratory and inspiratory wheeze heard. ABDOMEN: Soft, nontender. No mass palpable. LEGS are no edema. No swelling. Nervous system: No focal deficits. LABS: WBC 18.6, sodium is 119, APTT is 170, and glucose is 198. Troponin 0.070. ASSESSMENT: 1. Shortness of breath, possible chronic obstructive pulmonary disease acute exacerbation with acute purulent tracheobronchitis. 2. Acute pulmonary embolus on the right lobe. 3. Severe hyponatremia, possibly Syndrome of inappropriate antidiuretic hormone. 4. History of continued ongoing nicotine dependence. 5. Possible stridor, rule out upper respiratory obstruction with vocal cord abnormality. 6. Troponin 0.095 indeterminate. 7. History of hypertension. 8. Hyperlipidemia. 9. Chronic liver disease. 10.History of gastroesophageal reflux disease. 11.History of nicotine dependence. 12.History of anxiety. 13.History EtOH. 14.FULL CODE. 15.Hypokalemia. RECOMMENDATIONS AND DISCUSSION: This 64-year-old gentleman who presented with multiple complex medical issues, we will monitor the patient closely, continue the current medications, management and symptomatic treatment. We will continue with bronchodilators. Continue with symptomatic treatment. Nephrology consultation for hyponatremia, IV steroids, bronchodilators. We will closely follow with multiple consultants. Guarded prognosis because of multiple complex medical issues. Further recommendations to follow. See orders for details. MMODL / IJN: [id number] /
[2019-12-22 18:03] LABS: Appearance,Urine Clear (Clear); Bilirubin,Urine Negative (Negative); Blood,Urine Negative (Negative); Color,Urine Yellow; Glucose,Urine (UA) Negative (Negative); Ketones,Urine Negative (Negative); Leukocyte Esterase,Urine Negative (Negative); Nitrite,Urine Negative (Negative); Protein,Urine Negative (Negative); Specific Gravity,Urine 1.016 (1.001-1.035); Urobilinogen,Urine <2.0 mg/dL (<2.0)
[2019-12-22 20:34] LABS: Glucose,Whole Blood 197 mg/dL (75-99)
[2019-12-22] MEDS: CHOLECALCIFEROL 1,000 UNIT TAB PO SCH (20:42)
[2019-12-22] MEDS: cloNIDine HCL 0.2 MG TAB PO SCH (20:42)
[2019-12-23 00:34] LABS: HCT 27.2 % (39.0-53.0); MCH 33.3 pg (25.0-35.0); MCHC 35.2 g/dL (31.0-37.0); MCV 94.6 fL (80.0-100.0); Mean Platelet Volume 8.3; Platelet Count 215 k/uL (150-450); RBC 2.87 m/uL (4.30-5.90); RDW 12.5 % (11.5-15.5); WBC 27.2 k/uL (3.8-10.6)
[2019-12-23 00:59] LABS: HGB 9.6 gm/dL (13.0-17.5)
--- NOTE | 2019-12-23 03:26 | CT ---
EXAMINATION TYPE: CT ChestAbdPelvis wo con DATE OF EXAM: 12/23/2019 COMPARISON: 05/24/2012 and 12/21/2019 HISTORY: Hemaglobin drop CT DLP: 474.1 mGycm Automated exposure control for dose reduction was used. Multiple axial sections were obtained from the thoracic inlet to the floor the pelvis with no contras t. FINDINGS: There is left pleural effusion. There is patchy airspace infiltrate left posterior and lateral lung b ase. Heart size is normal. There is coarse pulmonary infiltrate and calcification at the right lung a pex. Thoracic aorta is atheromatous. Liver appears normal. The bile ducts are not dilated. Spleen is intact. Stomach is intact. There is n o sign of pancreatic mass. Abdominal aorta is atheromatous. Gallbladder appears normal. There is no adrenal mass. Kidneys have normal size and contour. There is no hydronephrosis. Ureters a re not dilated. There is no retroperitoneal adenopathy. Bladder distends smoothly. There is high atte nuation in the urinary bladder consistent with recent IV contrast exam. I see no pathologic fluid col lection. There is no mesenteric edema. There is no sign of ascites or free air. There is no evidence of thickened appendix. There is no evidence of a bowel obstruction. Thoracic and lumbar spine show no focal bone destruction. There is 15% wedging of T7 vertebra. Fractu res probably old. Sternum is intact. There is increased subcutaneous density over the left lateral abdomen. This could be acute hematoma. This extends from the iliac bone superiorly to the scapula. This measures up to 2.5 cm in thickness. IMPRESSION: Subcutaneous density over the left side of the chest and abdomen consistent with acute hematoma. Left pleural effusion and left basilar pulmonary infiltrate. There is some pulmonary scarring at the right lung apex. No acute abnormality seen within the abdomen and pelvis. Hematoma on the left side is new compared to the CT scan of the chest yesterday from [facility].
[2019-12-23] MEDS: LORazepam 0.5 MG TAB PO PRN (04:44)
[2019-12-23] MEDS: ALBUTEROL NEBULIZED 2.5 MG/3 ML INHALATION PRN ×3 (05:00→22:23)
[2019-12-23 06:08] LABS: Basophils % (A) 0 %; Eosinophils # (A) 0.1 k/uL (0-0.7); Eosinophils % (A) 0 %; HCT 27.1 % (39.0-53.0); HGB 9.3 gm/dL (13.0-17.5); Lymphocytes # (A) 1.1 k/uL (1.0-4.8); Lymphocytes % (A) 5 %; MCH 32.7 pg (25.0-35.0); MCHC 34.2 g/dL (31.0-37.0); MCV 95.5 fL (80.0-100.0); Mean Platelet Volume 8.7; Monocytes # (A) 1.5 k/uL (0-1.0); Monocytes % (A) 7 %; Neutrophils # (A) 20.6 k/uL (1.3-7.7); Neutrophils % (A) 87 %; Platelet Count 207 k/uL (150-450); RBC 2.84 m/uL (4.30-5.90); RDW 12.6 % (11.5-15.5); WBC 23.6 k/uL (3.8-10.6)
[2019-12-23 06:09] LABS: Glucose,Whole Blood 161 mg/dL (75-99)
[2019-12-23] MEDS: methylPREDNISolone SOD SUCCI 125 MG/2 ML VIAL IV SCH ×3 (06:13→19:09)
[2019-12-23] MEDS: INSULIN ASPART (NovoLOG) 100 UNIT/ML VIAL SQ SCH ×3 (06:13→23:59)
[2019-12-23 06:27] LABS: Calcium 8.3 mg/dL (8.4-10.2); Magnesium 2.1 mg/dL (1.6-2.3); Potassium 4.5 mmol/L (3.5-5.1)
[2019-12-23 08:04] LABS: Glucose,Whole Blood 184 mg/dL (75-99)
[2019-12-23] MEDS: SODIUM CHLORIDE 3%(HYPERTONIC) 500 ML IV ONE ×2 (08:12→16:05)
[2019-12-23] MEDS: ATORVASTATIN 20 MG TAB PO SCH (09:00)
[2019-12-23] MEDS ORDERED: FAMOTIDINE 20 MG TAB PO SCH (09:00)
[2019-12-23] MEDS ORDERED: MULTIVITAMIN PO SCH (09:00)
[2019-12-23] MEDS ORDERED: CLOPIDOGREL 75 MG TAB PO SCH (09:00)
[2019-12-23] MEDS: cloNIDine HCL 0.2 MG TAB PO SCH (09:00)
[2019-12-23] MEDS: METOPROLOL TARTRATE 25 MG TAB PO SCH (09:00)
[2019-12-23] MEDS: CHOLECALCIFEROL 1,000 UNIT TAB PO SCH ×2 (09:00→21:26)
[2019-12-23] MEDS ORDERED: POTASSIUM CHLORIDE ER 10 MEQ TAB.ER.PRT PO SCH (09:00)
[2019-12-23] MEDS: POTASSIUM CHLORIDE ER 20 MEQ TAB.ER PO SCH (09:00)
--- NOTE | 2019-12-23 09:14 | P.PN ---
Subjective Progress Note Date: 12/23/19 64-year-old male patient, chronic smoker, chronic alcoholic with drinks at least 10 beers on a daily basis, has history of right lower extremity DVT back in 2018 and nonmedicated any form of anticoagulation, has history of peripheral vascular disease and hypertension. Patient is also known to have COPD. The patient came into the hospital because of worsening shortness of breath. He initially presented to an outside hospital where a CT angiogram was done at [facility] and the patient was diagnosed having a subsegmental pulmonary embolism in the right lower lobe pulmonary artery branch. There was also some background emphysema that was moderate in severity and possible changes of liver cirrhosis. The patient was started on IV heparin following that he was transferred to us. No hemodynamic instability. The patient's troponins are 0.09 and 0.07 respectively 2. Influenza screen was negative. White cell count was 18.6 at time of admission. Renal function was stable with a creatinine of 0.8. Sodium level was 117 and the patient was started on normal saline. Despite the hypona tremia, there was no significant altered mentation. The patient has no signs of any confusion or delirium at this point in time. He denies having any chest pain. Is having some increased shortness of breath. He has bronchospastic. He has also noticed breathing, and inspiratory stridor was questioned. He has also developed hoarseness in his voice. CAT scan of the chest was again reviewed and it shows patent trachea. There is questionable abnormality in the left vocal cord however I'm not absolutely certain with this finding. EKG showing nonspecific ST segment changes. There are frequent PVCs. The patient is producing adequate amount of urine output for now. He is on IV heparin. On today's evaluation of 12/23/2019 the patient got transferred to the intensive care unit. Since yesterday, the patient's overall pulmonary status as decompensated. He seems to be having more stridor. At the same time he has developed a chest hematoma along the right lateral chest area with a drop in hemoglobin from 13 to 9.6. A repeat CAT scan of the chest abdomen and pelvis was done and the CAT scan showed development of a patchy airspace disease in the left lower lobe along with a left-sided pleural effusion. There was background emphysema. There is a hematoma along the left side of the chest that was not present on the previous CAT scans. Clinically, the patient developed a hematoma along the left lateral chest area. At that point, heparin was discontinued. As for the CAT scan of the neck, there is an area of narrowing in the subglottic area. I feel like there is some effacement of the supraglottic area 2. The epiglottis is within normal. Tongue is within normal. There is no evidence of any parapharyngeal mass. Tonsils and adenoids are within normal limits. The na rrowing and compression seems to be more on the left. There is one image wear of the airway is estimated to be around 3 mm. Clinically, the patient seems to be a bit more confused than yesterday. His sodium level dropped down to 112. At that point, the patient was started on hypertonic saline 3% at 20 mL an hour. He is arousable and awake and communicates. At times he is confused. He is having some mild respiratory distress at rest. No significant cough or sputum production. No nausea. No vomiting. No emesis. No headaches. Objective - Vital Signs Vital signs: Vital Signs Temp 98.4 F 12/23/19 03:00 Pulse 100 12/23/19 05:11 Resp 20 12/23/19 03:00 BP 123/85 12/23/19 03:00 Pulse Ox 99 12/23/19 03:00 Intake & Output 12/22/19 12/23/19 12/23/19 17:59 06:59 18:59 Intake Total Output Total Balance Weight Intake: Intake, IV Titration Amount Heparin Sod,Pork in 0.45% NaCl 25,000 unit In 0.45 % NaCl 1 250ml.bag @ 18 UNITS/KG/HR 13.064 mls/hr IV .Q19H9M [facility] Rx#: [id number] Sodium Chloride 0.9% 1, 000 ml @ 75 mls/hr IV . [id number] [facility] Rx#:[id number] cefTRIAXone 1 gm In Sodium Chloride 0.9% 50 ml @ 100 mls/hr IVPB Q24HR [facility] Rx#:[id number] Oral Output: Urine Other: Voiding Method # Voids - Exam Gen. appearance the patient looks quite malnourished during weak and cachectic. Nonacute distress. No altered mentation. He is a poor historian yet there is no altered mentation with confusion at this point in time. He is a mild degree of respiratory distress even at rest. Head exam was generally normal. There was no scleral icterus or corneal arcus. Mucous membranes were moist. Neck was supple and without jugular venous distension, thyromegaly, or carotid bruits. Carotids were easily palpable bilaterally. There was no adenopathy. There is some questionable noisy breathing during inspiration and guarded and neck area, and this obviously raises the concern for a stridor. Lungs sounds are diminished and there is diffuse expiratory wheezes throughout the lung his bilaterally along with prolongation of exhalation phase of breathing. Left chest hematoma and the hematomas extending in the lateral aspect of the left chest extending posteriorly and inferiorly. Please refer to the CAT scan findings. Cardiac exam revealed the PMI to be normally situated and sized. The rhythm was regular and no extrasystoles were noted during several minutes of auscultation. The first and second heart sounds were normal and physiologic splitting of the second heart sound was noted. There were no murmurs, rubs, clicks, or gallops. Abdominal exam revealed normal bowel sounds. The abdomen was soft, non-tender, and without masses, organomegaly, or appreciable enlargement of the abdominal aorta. Examination of the extremities revealed easily palpable radial, femoral and pedal pulses. There was no cyanosis, clubbing or edema. Examination of the skin revealed no evidence of significant rashes, suspicious appearing nevi or other concerning lesions. Neurologically awake and alert. Poor historian yet there is no focal neurological deficits. - Labs CBC & Chem 7: 12/23/19 05:32 12/23/19 05:32 Labs: Abnormal Lab Results - Last 24 Hours (Table) 12/22/19 12/22/19 12/22/19 Range/Units 05:34 08:38 11:15 WBC (3.8-10.6) k/uL RBC (4.30-5.90) m/uL Hgb (13.0-17.5) gm/dL Hct (39.0-53.0) % Neutrophils # (1.3-7.7) k/uL Monocytes # (0-1.0) k/uL APTT 170.7 H* (22.0-30.0) sec D-Dimer (<0.60) mg/L FEU Sodium 119 L* 117 L* (137-145) mmol/L Potassium 3.4 L (3.5-5.1) mmol/L Chloride 83 L (98-107) mmol/L Carbon Dioxide (22-30) mmol/L BUN 8 L (9-20) mg/dL Glucose 158 H (74-99) mg/dL POC Glucose (mg/dL) (75-99) mg/dL Osmolality (280-301) mosm/kg Calcium (8.4-10.2) mg/dL AST 124 H (17-59) U/L 12/22/19 12/22/19 12/22/19 Range/Units 11:54 11:59 14:44 WBC (3.8-10.6) k/uL RBC (4.30-5.90) m/uL Hgb (13.0-17.5) gm/dL Hct (39.0-53.0) % Neutrophils # (1.3-7.7) k/uL Monocytes # (0-1.0) k/uL APTT (22.0-30.0) sec D-Dimer 0.86 H (<0.60) mg/L FEU Sodium (137-145) mmol/L Potassium (3.5-5.1) mmol/L Chloride (98-107) mmol/L Carbon Dioxide (22-30) mmol/L BUN (9-20) mg/dL Glucose (74-99) mg/dL POC Glucose (mg/dL) 198 H (75-99) mg/dL Osmolality 248 L* (280-301) mosm/kg Calcium (8.4-10.2) mg/dL AST (17-59) U/L 12/22/19 12/22/19 12/22/19 Range/Units 14:44 16:54 17:09 WBC (3.8-10.6) k/uL RBC (4.30-5.90) m/uL Hgb (13.0-17.5) gm/dL Hct (39.0-53.0) % Neutrophils # (1.3-7.7) k/uL Monocytes # (0-1.0) k/uL APTT 103.4 H* (22.0-30.0) sec D-Dimer (<0.60) mg/L FEU Sodium 116 L* (137-145) mmol/L Potassium (3.5-5.1) mmol/L Chloride 84 L (98-107) mmol/L Carbon Dioxide 20 L (22-30) mmol/L BUN (9-20) mg/dL Glucose 131 H (74-99) mg/dL POC Glucose (mg/dL) 161 H (75-99) mg/dL Osmolality (280-301) mosm/kg Calcium 8.3 L (8.4-10.2) mg/dL AST (17-59) U/L 12/22/19 12/23/19 12/23/19 Range/Units 20:33 00:18 00:18 WBC 27.2 H (3.8-10.6) k/uL RBC 2.87 L (4.30-5.90) m/uL Hgb 9.6 L D (13.0-17.5) gm/dL Hct 27.2 L (39.0-53.0) % Neutrophils # (1.3-7.7) k/uL Monocytes # (0-1.0) k/uL APTT 51.3 H (22.0-30.0) sec D-Dimer (<0.60) mg/L FEU Sodium (137-145) mmol/L Potassium (3.5-5.1) mmol/L Chloride (98-107) mmol/L Carbon Dioxide (22-30) mmol/L BUN (9-20) mg/dL Glucose (74-99) mg/dL POC Glucose (mg/dL) 197 H (75-99) mg/dL Osmolality (280-301) mosm/kg Calcium (8.4-10.2) mg/dL AST (17-59) U/L 12/23/19 12/23/19 12/23/19 Range/Units 05:32 05:32 06:08 WBC 23.6 H (3.8-10.6) k/uL RBC 2.84 L (4.30-5.90) m/uL Hgb 9.3 L (13.0-17.5) gm/dL Hct 27.1 L (39.0-53.0) % Neutrophils # 20.6 H (1.3-7.7) k/uL Monocytes # 1.5 H (0-1.0) k/uL APTT (22.0-30.0) sec D-Dimer (<0.60) mg/L FEU Sodium 112 L* (137-145) mmol/L Potassium (3.5-5.1) mmol/L Chloride 79 L (98-107) mmol/L Carbon Dioxide (22-30) mmol/L BUN (9-20) mg/dL Glucose 116 H (74-99) mg/dL POC Glucose (mg/dL) 161 H (75-99) mg/dL Osmolality (280-301) mosm/kg Calcium 8.3 L (8.4-10.2) mg/dL AST (17-59) U/L 12/23/19 Range/Units 08:02 WBC (3.8-10.6) k/uL RBC (4.30-5.90) m/uL Hgb (13.0-17.5) gm/dL Hct (39.0-53.0) % Neutrophils # (1.3-7.7) k/uL Monocytes # (0-1.0) k/uL APTT (22.0-30.0) sec D-Dimer (<0.60) mg/L FEU Sodium (137-145) mmol/L Potassium (3.5-5.1) mmol/L Chloride (98-107) mmol/L Carbon Dioxide (22-30) mmol/L BUN (9-20) mg/dL Glucose (74-99) mg/dL POC Glucose (mg/dL) 184 H (75-99) mg/dL Osmolality (280-301) mosm/kg Calcium (8.4-10.2) mg/dL AST (17-59) U/L Assessment and Plan Plan: 1 acute COPD exacerbation with secondary shortness of breath 2 upper airway obstruction with stridor. Questionable subglottic narrowing and CAT scan of the neck was done and the airway seems to be compromised 3 left lower lobe pneumonia/effusion 4 chest hematoma probably with coughing and anticoagulation 5. Anemia with a drop in the hemoglobin down to 9.6 secondary to chest wall he matoma 6 pulmonary embolism which is questionable.. There is a questionable filling defect in the subsegmental right lower lobe pulmonary artery branch and the patient is currently on IV heparin. He has previous history of DVT in 2018 and he wasn't taking any form of anticoagulation. 8 hyponatremia with a sodium level of 117 at time of admission. This is most likely related to excessive beer drinking/beer pot[place] and the sodium level is currently up to 119. Subsequently the sodium dropped down to 112 the patient also was found to be on off confused. Nephrology was informed and the patient was started on hypertonic saline at 3% at the rate of 20 mL an hour. 5 history of DVT of the right lower extremity 2017 6 smoker 7 alcoholism 8 questionable liver cirrhosis based on CAT scan findings 9 abnormal troponin without any significant EKG changes or chest pain Plan DisContinue IV heparin The d-dimer was 0.86, borderline elevated and the Doppler of the lower extremity still pending for now. In any reason, based on development of a large left sided hematoma, the anti-coagulation was discontinued. Continue hypertonic solution 3% Stat ENT consultation for tracheostomy. Discussed the case with aMddie Lawrence. Based on my discussion, he showed no interest in doing a awake tracheostomy on this patient. As such the airway needs to be secured an alternative way. Discussed the case with Dr. Evans. We'll attempt to at least do an upper airway inspection and possibly acute airway with an orotracheal tube with subsequent tracheostomy tube with a later stage. IV Zosyn IV Solu-Medrol DuoNeb neb last treatment [id number] CAT scan of the neck Watch for any signs of delirium tremens Watch sodium levels closely every 4 hours Nephrology to monitor the sodium level and advice on the hypertonic saline Condition is critical. I asked the to come in to discuss the findings. I'm going to take this patient to the operating room for a quick upper airway inspection and orotracheal intubation to secure the airway. Obviously this is critical and the family was made aware. Time with Patient: Greater than 30
--- NOTE | 2019-12-23 11:17 | PN ---
PROGRESS NOTE Mr. Laurent is a 64-year-old male with history of chronic tobacco and alcohol intake who presented with symptoms of progressive dyspnea and cough with possible pulmonary embolism. During the night, he became more short of breath with stridor. He developed a left-sided chest wall hematoma. He has been having more stridor and neck and chest CT suggested significant compression on the trachea with subglottic tracheal narrowing worsened. He continues to be quite dyspneic with difficulty breathing and he is scheduled to undergo further evaluation with bronchoscopy and possible tracheostomy or endotracheal intubation by Dr. Tabares. His anticoagulation was stopped because of the hematoma. PHYSICAL EXAMINATION: Blood pressure 123/80 with a heart rate in 90s. Lungs with decreased air exchange bilaterally with stridor and wheezes. HEART: Regular rate and rhythm, S1, S2. No S3. No gallop appreciated. ABDOMEN: Soft, nontender. EXTREMITIES: No edema. LAB DATA: Lab data revealed a sodium down to 112. His hemoglobin is down to 9.3. His white blood cell 23.6. IMPRESSION: 1. Tracheal narrowing with external compression, etiology unclear. 2. Exacerbation of chronic obstructive pulmonary disease. 3. Left lower lobe pneumonia. 4. Chest hematoma. 5. Questionable pulmonary embolism. 6. Severe hyponatremia, rule out Syndrome of inappropriate antidiuretic hormone. 7. Prior history of deep vein thrombosis. 8. Mild troponin elevation most likely related to his lung status. RECOMMENDATION: From the cardiac standpoint, the patient underwent an echocardiogram yesterday that revealed an ejection fraction 50% to 55% with no significant valvular disease. At this time, there is no active cardiac abnormality. We will await the evaluation of his bronchoscopy and further evaluation to guide his treatment. The prognosis is guarded. MMODL / IJN: [id number] /
[2019-12-23] MEDS: BUDESONIDE 1 MG/2 ML NEBU INHALATION SCH ×2 (11:21→22:23)
[2019-12-23] MEDS: FORMOTEROL FUMARATE 20 MCG/2 ML NEBU INHALATION SCH ×2 (11:21→22:23)
--- NOTE | 2019-12-23 11:32 | P.PN ---
Subjective Progress Note Date: 12/23/19 Follow-up for hyponatremia. Sodium dropped today. Little bit lethargic. He has stridor and he is on high flow oxygen. Objective - Vital Signs Vital signs: Vital Signs Temp 98.4 F 12/23/19 03:00 Pulse 100 12/23/19 05:11 Resp 20 12/23/19 03:00 BP 123/85 12/23/19 03:00 Pulse Ox 88 L 12/23/19 10:25 Intake & Output 12/22/19 12/23/19 12/23/19 17:59 06:59 18:59 Intake Total Output Total Balance Weight Intake: Intake, IV Titration Amount Heparin Sod,Pork in 0.45% NaCl 25,000 unit In 0.45 % NaCl 1 250ml.bag @ 18 UNITS/KG/HR 13.064 mls/hr IV .Q19H9M [facility] Rx#: [id number] Sodium Chloride 0.9% 1, 000 ml @ 75 mls/hr IV . [id number] [facility] Rx#:[id number] cefTRIAXone 1 gm In Sodium Chloride 0.9% 50 ml @ 100 mls/hr IVPB Q24HR [facility] Rx#:[id number] Oral Output: Urine Other: Voiding Method # Voids - Exam No acute distress S1-S2 heard Bilateral decreased breath sounds Abdomen soft No edema - Labs CBC & Chem 7: 12/23/19 05:32 12/23/19 05:32 Labs: Abnormal Lab Results - Last 24 Hours (Table) 12/22/19 12/22/19 12/22/19 Range/Units 11:15 11:54 11:59 WBC (3.8-10.6) k/uL RBC (4.30-5.90) m/uL Hgb (13.0-17.5) gm/dL Hct (39.0-53.0) % Neutrophils # (1.3-7.7) k/uL Monocytes # (0-1.0) k/uL APTT (22.0-30.0) sec D-Dimer (<0.60) mg/L FEU Sodium 117 L* (137-145) mmol/L Chloride (98-107) mmol/L Carbon Dioxide (22-30) mmol/L Glucose (74-99) mg/dL POC Glucose (mg/dL) 198 H (75-99) mg/dL Osmolality 248 L* (280-301) mosm/kg Calcium (8.4-10.2) mg/dL 12/22/19 12/22/19 12/22/19 Range/Units 14:44 14:44 16:54 WBC (3.8-10.6) k/uL RBC (4.30-5.90) m/uL Hgb (13.0-17.5) gm/dL Hct (39.0-53.0) % Neutrophils # (1.3-7.7) k/uL Monocytes # (0-1.0) k/uL APTT (22.0-30.0) sec D-Dimer 0.86 H (<0.60) mg/L FEU Sodium 116 L* (137-145) mmol/L Chloride 84 L (98-107) mmol/L Carbon Dioxide 20 L (22-30) mmol/L Glucose 131 H (74-99) mg/dL POC Glucose (mg/dL) 161 H (75-99) mg/dL Osmolality (280-301) mosm/kg Calcium 8.3 L (8.4-10.2) mg/dL 12/22/19 12/22/19 12/23/19 Range/Units 17:09 20:33 00:18 WBC (3.8-10.6) k/uL RBC (4.30-5.90) m/uL Hgb (13.0-17.5) gm/dL Hct (39.0-53.0) % Neutrophils # (1.3-7.7) k/uL Monocytes # (0-1.0) k/uL APTT 103.4 H* 51.3 H (22.0-30.0) sec D-Dimer (<0.60) mg/L FEU Sodium (137-145) mmol/L Chloride (98-107) mmol/L Carbon Dioxide (22-30) mmol/L Glucose (74-99) mg/dL POC Glucose (mg/dL) 197 H (75-99) mg/dL Osmolality (280-301) mosm/kg Calcium (8.4-10.2) mg/dL 12/23/19 12/23/19 12/23/19 Range/Units 00:18 05:32 05:32 WBC 27.2 H 23.6 H (3.8-10.6) k/uL RBC 2.87 L 2.84 L (4.30-5.90) m/uL Hgb 9.6 L D 9.3 L (13.0-17.5) gm/dL Hct 27.2 L 27.1 L (39.0-53.0) % Neutrophils # 20.6 H (1.3-7.7) k/uL Monocytes # 1.5 H (0-1.0) k/uL APTT (22.0-30.0) sec D-Dimer (<0.60) mg/L FEU Sodium 112 L* (137-145) mmol/L Chloride 79 L (98-107) mmol/L Carbon Dioxide (22-30) mmol/L Glucose 116 H (74-99) mg/dL POC Glucose (mg/dL) (75-99) mg/dL Osmolality (280-301) mosm/kg Calcium 8.3 L (8.4-10.2) mg/dL 12/23/19 12/23/19 Range/Units 06:08 08:02 WBC (3.8-10.6) k/uL RBC (4.30-5.90) m/uL Hgb (13.0-17.5) gm/dL Hct (39.0-53.0) % Neutrophils # (1.3-7.7) k/uL Monocytes # (0-1.0) k/uL APTT (22.0-30.0) sec D-Dimer (<0.60) mg/L FEU Sodium (137-145) mmol/L Chloride (98-107) mmol/L Carbon Dioxide (22-30) mmol/L Glucose (74-99) mg/dL POC Glucose (mg/dL) 161 H 184 H (75-99) mg/dL Osmolality (280-301) mosm/kg Calcium (8.4-10.2) mg/dL Assessment and Plan Assessment: #1 chronic [more than 48 hours] hypotonic hyponatremia suspect SIADH based on history but urine studies with a low-sodium favors hypovolemic. #2 COPD with underlying tracheobronchitis #3 pulmonary embolism #4 hypokalemia #5 essential hypertension #6 metabolic acidosis, resolved. Plan: #1 start 3% saline at 20 ML's an hour. Monitor BMP every 4 hourly. #2 goal serum sodium off 6-9 in 24 hours..
[2019-12-23] MEDS ORDERED: fentaNYL (PF) 50 MCG/ML 2 ML AMP ONE (11:49)
[2019-12-23] MEDS ORDERED: MIDAZOLAM 2 MG/2 ML VIAL ONE (11:49)
[2019-12-23] MEDS ORDERED: PHENYLEPHRINE-0.9% NACL SYG 1 MG/10 ML SYRINGE ONE (11:49)
[2019-12-23] MEDS ORDERED: LIDOCAINE 1% INJ 10MG/ML (20 ML MDV) ONE (11:49)
[2019-12-23] MEDS ORDERED: PROPOFOL 10 MG/ML 20 ML VIAL IV ONE (11:49)
[2019-12-23] MEDS ORDERED: IV FLUID CONTINUATION 1,000 ML IV ONE (11:53)
[2019-12-23] MEDS: FOLIC ACID 1 MG TAB PO SCH ×2 (12:00→14:09)
--- NOTE | 2019-12-23 12:13 | P.PCN ---
Date of Procedure: 12/23/19 Preoperative Diagnosis: Upper airway obstruction Postoperative Diagnosis: Vocal cord tumor Procedure(s) Performed: Flexible bronchoscopy Anesthesia: PARMINDERA Surgeon: Rene Tabares Small Equipment Operator #1: Smith Evans Estimated Blood Loss (ml): 0 Condition: critical Disposition: ICU Operative Findings: This procedure was done and operating room. The patient had an upper airway obstruction/stridor with a CAT scan of the chest showing significant narrowing of the cords. The patient was brought into the operating room. ENT was on standby for emergency tracheostomy. The patient was given propofol. Following that I inserted the bronchoscope through the right nostril and a chronic upper airway inspection was done. The posterior oropharynx was patent. Epiglottis was within normal limits. Immediately, the cords were expected and the patient had significant narrowing/compression along the left lateral wall of the larynx along with vocal cord effacement, causing significant airway compromise where the airways status was estimated to be less than 5 cm. Right lower cord was st ill dynamic and moving. The patient was having respiratory distress and I was unable to do a full evaluation. I was able to pass the bronchoscope to inspect the subglottic area which was quite patent and within normal limits. The the upper tracheal portion was also within normal limits. At that point, anesthesia was involved intubated the patient. A bougie was inserted and following that a #6.5 ET tube was passed over into the trachea. During the process, the patient went into atrial fibrillation with rapid ventricular response. He remained hemodynamically stable. Oxygen saturation was encountered. The patient was brought back to the intensive care unit for further evaluation and treatment. The plan is to stabilize his condition for a possible tracheostomy tube insertion within next 24 hours. We'll continue to follow. For now the patient is intubated on a mechanical ventilator. Propofol be used for sedation. Appropriate lines will be established.
[2019-12-23] MEDS ORDERED: CISATRACURIUM 2 MG/ML 5 ML VIAL IV ONE (12:30)
[2019-12-23] MEDS: PROPOFOL 1,000 MG in EMPTY BAG 1 BAG IV SCH ×2 (12:30→22:06)
[2019-12-23] MEDS ORDERED: DILTIAZEM DRIP BOLUS FROM BAG 1 MG SOLN IV ONE ×2 (12:42→13:53)
--- NOTE | 2019-12-23 12:42 | P.PCN ---
Date of Procedure: 12/23/19 Preoperative Diagnosis: Acute respiratory failure, upper airway obstruction Postoperative Diagnosis: Same Procedure(s) Performed: Triple-lumen catheter insertion, Artline catheter insertion Anesthesia: local Surgeon: Rene Tabares Pathology: other Condition: stable Disposition: ICU Operative Findings: Indication: Hemodynamic monitoring/Intravenous access. A time-out was completed verifying correct patient, procedure, site, positioning, and implant(s) or special equipment if applicable. The patient was placed in a dependent position appropriate for central line placement based on the vein to be cannulated. The patient shoulder on the left was prepped and draped in sterile fashion. 1% Lidocaine was used to anesthetize the surrounding skin area. A triple lumen 9F Cordis catheter was introduced into the left subclavian vein using Seldinger technique. The catheter was threaded smoothly over the guide wire and appropriate blood return was obtained. Each lumen of the catheter was evacuated of air and flushed with sterile saline. The catheter was then sutured in place to the skin and a sterile dressing applied. Perfusion to the extremity distal to the point of catheter insertion was checked and found to be adequate. The patient tolerated the procedure well and there were no complications. Indication: Hemodynamic monitoring. A time-out was completed verifying correct patient, procedure, site, positioning, and implant(s) or special equipment if applicable. Allens test was performed to ensure adequate perfusion. The patient left wrist was prepped and draped in sterile fashion. 1% Lidocaine was used to anesthetize the area. An 18G Arrow arterial line was introduced into the left radial artery. The catheter was threaded over the guide wire and the needle was removed with appropriate pulsatile blood return. Blood loss was minimal. The catheter was then sutured in place to the skin and a sterile dressing applied. Perfusion to the extremity distal to the point of catheter insertion was checked and found to be adequate. The patient tolerated the procedure well and there were no complications.
[2019-12-23 12:53] LABS: ABG Base Excess -1.5 mmol/L; ABG HCO3 24 mmol/L (21-25); ABG Oxygen Saturation 96.2 % (94-97); ABG PCO2 45 mmHg (35-45); ABG PH 7.34 (7.35-7.45); ABG PO2 92 mmHg (83-108); ABG TCO2 26 mmol/L (19-24); Allen Test Performed? Yes
[2019-12-23] MEDS: DILTIAZEM 125 MG in SODIUM CHLORIDE 0.9% 100 ML IV SCH (13:02)
--- NOTE | 2019-12-23 13:21 | XR ---
EXAMINATION TYPE: XR chest 1V portable DATE OF EXAM: 12/23/2019 Comparison: 12/22/2019 Clinical History: 64-year-old male line placement/tube placement Findings: ET tube is satisfactory. NG tube is down but the distal aspect is outside the field of view not asses sed. Left subclavian CVC tip at the mid SVC level. Heart normal size. Hyperinflation. Increasing patc hy left basilar opacity. There is suggestion of some volume loss in left hemithorax now. Similar biap ical pleural parenchymal scarring. Impression: 1. Increasing left basilar opacity, likely combination of small effusion and prominent adjacent atele ctasis and/or consolidation. 2. Background COPD.
[2019-12-23 13:29] LABS: HCT 23.8 % (39.0-53.0); HGB 8.1 gm/dL (13.0-17.5); MCH 32.3 pg (25.0-35.0); MCHC 34.2 g/dL (31.0-37.0); MCV 94.4 fL (80.0-100.0); Mean Platelet Volume 8.6; Platelet Count 175 k/uL (150-450); RBC 2.52 m/uL (4.30-5.90); RDW 12.7 % (11.5-15.5); WBC 20.3 k/uL (3.8-10.6)
[2019-12-23 13:37] LABS: Calcium 7.6 mg/dL (8.4-10.2); Potassium 4.1 mmol/L (3.5-5.1)
[2019-12-23] MEDS: PIPERACILLIN-TAZOBACTAM 3.375 GM in SODIUM CHLORIDE 0.9% 100 ML IVPB SCH ×2 (14:08→19:09)
[2019-12-23] MEDS: MULTIVITAMINS, THERA 1 EACH TAB PO SCH (14:09)
[2019-12-23] MEDS: THIAMINE 100 MG TAB PO SCH (14:09)
[2019-12-23] MEDS: PANTOPRAZOLE 40 MG/10 ML VIAL IVP SCH ×2 (14:09→21:26)
[2019-12-23] MEDS: NOREPINEPHRINE 32 MG in SODIUM CHLORIDE 0.9% 218 ML IV SCH (14:36)
[2019-12-23] MEDS: NICOTINE 14MG/24HR PATCH TRANSDERM SCH (14:46)
[2019-12-23] MEDS ORDERED: SODIUM CHLORIDE 0.9% 1,000 ML IV ONE ×2 (15:57→20:55)
[2019-12-23 18:52] LABS: Glucose,Whole Blood 155 mg/dL (75-99)
[2019-12-23 18:56] LABS: HGB 7.7 gm/dL (13.0-17.5); MCH 33.6 pg (25.0-35.0); MCHC 35.1 g/dL (31.0-37.0); MCV 95.6 fL (80.0-100.0); Platelet Count 147 k/uL (150-450); RDW 12.6 % (11.5-15.5); WBC 17.6 k/uL (3.8-10.6)
[2019-12-23 19:10] LABS: Calcium 7.3 mg/dL (8.4-10.2); Potassium 4.2 mmol/L (3.5-5.1)
[2019-12-23] MEDS: CHLORHEXIDINE GLUCONATE 15 ML CUP MUCOUS MEM SCH (21:26)
[2019-12-23] MEDS: MORPHINE SULFATE 2 MG/ML SYRINGE IVP PRN (21:31)
--- NOTE | 2019-12-23 22:28 | PN ---
PROGRESS NOTE DATE OF SERVICE: 12/23/2019 This 64-year-old gentleman admitted shortness of breath as well as stridor is being closely monitored. The patient has possible COPD. The patient also had a bronchoscopic evaluation by Dr. Tabares. ENT evaluation pending at this time. The bronchoscopy evaluation showed upper airway obstruction with vocal cord tumor during the flexible bronchoscopy currently because of respiratory failure patient mechanically intubated at this time. The most the most recent chest x-ray which was evaluated personally by me showed some effusion atelectasis, especially on the left side. The patient is mechanically sedated at this time. The patient also because of hypotension pressor supported. The patient is also on propofol. Sodium has also dropped to 117. PAST MEDICAL HISTORY: Reviewed. Review of systems could not be taken. CURRENT MEDICATIONS: 1. Ventolin p.r.n. 2. Lipitor. 3. Pulmicort. 4. Peridex. 5. Catapres. 6. Plavix. 7. Cardizem drip for atrial ablation. 8. Folic acid. 9. Perforomist. 10.Ativan. 11.Solu-Medrol 60 IV q.6. 12.Multivitamins. 13.Narcan. 14.Habitrol 14. 15.Protonix. 16.Propofol. 17.Thiamine. PHYSICAL EXAM: Patient is mechanically sedated. Pulse 95, blood pressure 90/48, respiration 14, temperature normal, pulse ox 98% on 70% FiO2. Vent settings are noted. HEENT: Conjunctivae normal. Oral mucosa moist. NECK: No jugular venous distention. No lymph node enlargement. CARDIOVASCULAR: S1, S2. RESPIRATORY: Diminished breath sounds at the bases. Bilateral scattered rhonchi and crackles. ABDOMEN: Soft, nontender. LEGS: No edema, no swelling. NERVOUS SYSTEM: No focal deficits. LABS: WBC 7, hemoglobin 7.7, sodium is 117, creatinine is 1.1. ASSESSMENT: 1. Shortness of breath with possible chronic obstructive pulmonary disease acute exacerbation with acute purulent tracheobronchitis with acute hypoxic respiratory failure on mechanical ventilation. 2. 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 3. Acute pulmonary embolism on the right lobe. 4. A bruise on the chest, hematoma. 5. Severe hyponatremia, possibly SIADH. 6. History of continued ongoing nicotine dependence. 7. Troponin 0.095, indeterminate. 8. History hypertension. 9. History of hyperlipidemia. 10.History of chronic liver disease. 11.History of gastroesophageal reflux disease. 12.History of nicotine dependence. 13.History of anxiety. 14.History of EtOH. 15.FULL CODE. 16.Hypokalemia. RECOMMENDATIONS AND DISCUSSION: In this 64-year-old gentleman who presented with multiple complex medical issues, we will monitor the patient closely, continue the current management and symptomatic treatment, continue the bronchodilators, continue mechanical ventilation. ENT evaluation for possible tracheostomy. Prognosis guarded because of multiple complex medical issues. Discussed with Dr. Tabares. Closely follow with Pulmonary. Further recommendation to follow. MMODL / IJN: [id number] /
[2019-12-23 23:20] LABS: Glucose,Whole Blood 174 mg/dL (75-99)
[2019-12-23 23:41] LABS: Calcium 7.3 mg/dL (8.4-10.2)
[2019-12-24] MEDS: MORPHINE SULFATE 2 MG/ML SYRINGE IVP PRN
[2019-12-24] MEDS: methylPREDNISolone SOD SUCCI 125 MG/2 ML VIAL IV SCH ×5 (00:02→23:24)
[2019-12-24] MEDS: cloNIDine HCL 0.2 MG TAB PO SCH ×3 (00:34→20:07)
[2019-12-24] MEDS: PIPERACILLIN-TAZOBACTAM 3.375 GM in SODIUM CHLORIDE 0.9% 100 ML IVPB SCH ×3 (01:15→19:23)
[2019-12-24] MEDS: PROPOFOL 1,000 MG in EMPTY BAG 1 BAG IV SCH ×4 (04:16→19:22)
[2019-12-24 04:20] LABS: Basophils % (A) 0 %; Eosinophils % (A) 0 %; HCT 20.6 % (39.0-53.0); HGB 7.1 gm/dL (13.0-17.5); Lymphocytes # (A) 0.6 k/uL (1.0-4.8); Lymphocytes % (A) 4 %; MCHC 34.5 g/dL (31.0-37.0); MCV 95.6 fL (80.0-100.0); Mean Platelet Volume 8.9; Monocytes # (A) 1.2 k/uL (0-1.0); Monocytes % (A) 7 %; Neutrophils # (A) 15.2 k/uL (1.3-7.7); Neutrophils % (A) 88 %; Platelet Count 149 k/uL (150-450); RBC 2.15 m/uL (4.30-5.90); RDW 12.7 % (11.5-15.5); WBC 17.2 k/uL (3.8-10.6)
[2019-12-24] MEDS: INSULIN ASPART (NovoLOG) 100 UNIT/ML VIAL SQ SCH ×5 (04:33→23:36)
[2019-12-24 04:42] LABS: Calcium 7.3 mg/dL (8.4-10.2); Potassium 3.9 mmol/L (3.5-5.1)
[2019-12-24 05:40] LABS: ABG Base Excess -2.9 mmol/L; ABG HCO3 22 mmol/L (21-25); ABG Oxygen Saturation 99.1 % (94-97); ABG PCO2 38 mmHg (35-45); ABG PH 7.37 (7.35-7.45); ABG PO2 216 mmHg (83-108); ABG TCO2 24 mmol/L (19-24); Allen Test Performed? Yes
[2019-12-24] MEDS: DILTIAZEM 125 MG in SODIUM CHLORIDE 0.9% 100 ML IV SCH (07:35)
[2019-12-24] MEDS: ALBUTEROL NEBULIZED 2.5 MG/3 ML INHALATION PRN ×2 (07:46→19:30)
[2019-12-24] MEDS: FORMOTEROL FUMARATE 20 MCG/2 ML NEBU INHALATION SCH ×2 (07:46→19:29)
[2019-12-24] MEDS: BUDESONIDE 1 MG/2 ML NEBU INHALATION SCH ×2 (07:46→19:30)
[2019-12-24] MEDS ORDERED: SODIUM CHLORIDE 3%(HYPERTONIC) 500 ML IV SCH (08:15)
--- NOTE | 2019-12-24 09:37 | PN ---
PROGRESS NOTE Mr. Laurent is a 64-year-old male with known history of chronic tobacco use, who presented with symptoms of progressive dyspnea and was found to have evidence of compression on the trachea, underwent bronchoscopy and intubation by Dr. Tabares yesterday was found to have a mass on the vocal cords. He had episode of atrial fibrillation, post bronchoscopy. He is back in sinus mechanism. Hemodynamically, he is stable. There is no evidence of malignant arrhythmia. His urine output is stable. He continues to be on Lipitor 20 mg daily, IV Cardizem, clonidine 0.2 mg twice a day, Plavix 75 mg daily, metoprolol tartrate 25 mg twice a day. PHYSICAL EXAMINATION: Blood pressure 134/59 with the heart rate in 70s. LUNGS: Clear anteriorly. HEART: Regular rate and rhythm. S1, S2. No S3. No rub appreciated. ABDOMEN: Soft. Positive bowel sounds. No organomegaly. EXTREMITIES: No edema. LAB DATA: Lab data revealed a BUN and creatinine of 18 and 1.34. His sodium is 118. His hemoglobin is 7.1. IMPRESSION: 1. Respiratory failure with vocal cord tumor compressing the trachea. 2. Paroxysmal atrial fibrillation back in sinus mechanism. 3. Possible pulmonary embolism according to the CAT scan. 4. History of smoking. 5. Severe hyponatremia of unclear etiology, could be related to malignancy. 6. History of chronic alcohol intake. 7. Chest hematoma. RECOMMENDATION: Patient will stay off the heparin. I will stop the Plavix at this time. We will await the input of Dr. Lawrence. Continue IV Cardizem for now. Follow his rhythm and depending on that, further recommendation will be made. Unfortunately prognosis is guarded at this point. MMODL / IJN: [id number] /
[2019-12-24] MEDS: CHOLECALCIFEROL 1,000 UNIT TAB PO SCH ×2 (09:53→20:07)
[2019-12-24] MEDS: NICOTINE 14MG/24HR PATCH TRANSDERM SCH (09:53)
[2019-12-24] MEDS: METOPROLOL TARTRATE 25 MG TAB PO SCH ×3 (09:53→20:07)
[2019-12-24] MEDS: ATORVASTATIN 20 MG TAB PO SCH (09:53)
[2019-12-24] MEDS: PANTOPRAZOLE 40 MG/10 ML VIAL IVP SCH ×2 (09:53→20:07)
[2019-12-24] MEDS: POTASSIUM CHLORIDE ER 20 MEQ TAB.ER PO SCH (09:54)
[2019-12-24] MEDS: CHLORHEXIDINE GLUCONATE 15 ML CUP MUCOUS MEM SCH ×2 (09:55→20:07)
--- NOTE | 2019-12-24 10:06 | XR ---
EXAMINATION TYPE: XR chest 1V portable DATE OF EXAM: 12/24/2019 COMPARISON: Prior chest x-ray dated 12/23/2019 HISTORY: Intubated TECHNIQUE: Single frontal view of the chest is obtained. FINDINGS: Endotracheal tube and NG tube are overlying appropriate positions, the side port of the NG tube is at the level of the gastroesophageal junction however. There are overlying artifacts, cardia c leads. Volume loss present in the left hemithorax, there is interval improved aeration in the left chest. Calcification over the apices is again seen. No evident pneumothorax. Patchy density persists at the left lung base. Left subclavian central venous catheter shows the distal tip overlying superio r vena cava. Aorta is dense. Heart is small. Prominent lung volume may be indicative of underlying CO PD. IMPRESSION: Correlate for left lower lobe pneumonia, possible effusion and atelectasis. There is andria e improvement in aeration. NG tube as described.
[2019-12-24 10:46] LABS: INR 0.9 (<1.2); Prothrombin Time 9.9 sec (9.0-12.0)
--- NOTE | 2019-12-24 11:55 | P.PN ---
Subjective Progress Note Date: 12/24/19 64-year-old male patient, chronic smoker, chronic alcoholic with drinks at least 10 beers on a daily basis, has history of right lower extremity DVT back in 2018 and nonmedicated any form of anticoagulation, has history of peripheral vascular disease and hypertension. Patient is also known to have COPD. The patient came into the hospital because of worsening shortness of breath. He initially presented to an outside hospital where a CT angiogram was done at [facility] and the patient was diagnosed having a subsegmental pulmonary embolism in the right lower lobe pulmonary artery branch. There was also some background emphysema that was moderate in severity and possible changes of liver cirrhosis. The patient was started on IV heparin following that he was transferred to us. No hemodynamic instability. The patient's troponins are 0.09 and 0.07 respectively 2. Influenza screen was negative. White cell count was 18.6 at time of admission. Renal function was stable with a creatinine of 0.8. Sodium level was 117 and the patient was started on normal saline. Despite the hypona tremia, there was no significant altered mentation. The patient has no signs of any confusion or delirium at this point in time. He denies having any chest pain. Is having some increased shortness of breath. He has bronchospastic. He has also noticed breathing, and inspiratory stridor was questioned. He has also developed hoarseness in his voice. CAT scan of the chest was again reviewed and it shows patent trachea. There is questionable abnormality in the left vocal cord however I'm not absolutely certain with this finding. EKG showing nonspecific ST segment changes. There are frequent PVCs. The patient is producing adequate amount of urine output for now. He is on IV heparin. On today's evaluation of 12/23/2019 the patient got transferred to the intensive care unit. Since yesterday, the patient's overall pulmonary status as decompensated. He seems to be having more stridor. At the same time he has developed a chest hematoma along the right lateral chest area with a drop in hemoglobin from 13 to 9.6. A repeat CAT scan of the chest abdomen and pelvis was done and the CAT scan showed development of a patchy airspace disease in the left lower lobe along with a left-sided pleural effusion. There was background emphysema. There is a hematoma along the left side of the chest that was not present on the previous CAT scans. Clinically, the patient developed a hematoma along the left lateral chest area. At that point, heparin was discontinued. As for the CAT scan of the neck, there is an area of narrowing in the subglottic area. I feel like there is some effacement of the supraglottic area 2. The epiglottis is within normal. Tongue is within normal. There is no evidence of any parapharyngeal mass. Tonsils and adenoids are within normal limits. The na rrowing and compression seems to be more on the left. There is one image wear of the airway is estimated to be around 3 mm. Clinically, the patient seems to be a bit more confused than yesterday. His sodium level dropped down to 112. At that point, the patient was started on hypertonic saline 3% at 20 mL an hour. He is arousable and awake and communicates. At times he is confused. He is having some mild respiratory distress at rest. No significant cough or sputum production. No nausea. No vomiting. No emesis. No headaches. On 12/24/2019 on seeing the patient for a follow-up. This morning the patient is well sedated with propofol. As mentioned earlier, the patient was taken to the operating room and he was intubated by #6.5 orotracheal tube. Had significant effacement of his voice box due to laryngeal/vocal cord tumor. The patient currently is adequately oxygenated and ventilated. He is on a tidal volume of 400 with a rate of 14 and a PEEP of 8 with an FiO2 of 40%. Chest x- ray shows some limited left basilar infiltration. Blood gas showed a pH of 7.37 with a pCO2 of 38 and pO2 of 216. The patient on IV Zosyn as an empiric antibiotic coverage. The plan is to proceed with a tracheostomy tube insertion today by ENT. He is hemodynamically stable. His sodium level is improving it's up to 121. He went to taken off the hypertonic saline solution and put him on normal saline at the rate of 50 mL an hour. He has been hemodynamically stable on no pressors. He is afebrile. His cardiac rhythm is back to sinus. His taken off the Cardizem drip for now. He is on no pressors. No other significant events overnight. Is producing adequate amount of urine output. He is in the order of 30 mL an hour. Objective - Vital Signs Vital signs: Vital Signs Temp 98.3 F 12/24/19 09:00 Pulse 73 12/24/19 11:00 Resp 16 12/24/19 11:00 BP 85/60 12/23/19 16:30 Pulse Ox 100 12/24/19 11:00 Intake & Output 12/23/19 12/24/19 12/24/19 18:59 06:59 18:59 Intake Total 4967.871 3825.056 477.645 Output Total 375 415 265 Balance 2544.844 3630.056 212.645 Weight 72 kg Intake: IV 100 102 130 Normal Saline Pressure 42 30 Bag Sodium Chloride 3%( 60 100 Hypertonic) 500 ml @ 20 mls/hr IV .Q24H [facility] Rx#: [id number] Intake, IV Titration 5798.646 4105.056 347.645 Amount Diltiazem 125 mg In 11.583 85.167 Sodium Chloride 0.9% 100 ml @ Per Protocol IV .Q0M [facility] Rx#:[id number] Norepinephrine 32 mg In 7.619 7.828 Sodium Chloride 0.9% 218 ml @ 0.05 MCG/KG/MIN 1. 533 mls/hr IV .Q24H [facility] Rx#:[id number] Piperacillin-Tazobactam 3 100 50 .375 gm In Sodium Chloride 0.9% 100 ml @ 25 mls/hr IVPB Q8H [facility] Rx#: [id number] Propofol 1,000 mg In 11.772 188.228 212.478 Empty Bag 1 bag @ Titrate IV .Q0M [facility] Rx#: [id number] Sodium Chloride 0.9% 1, 1000 000 ml @ 999 mls/hr IV . Q1H1M [facility] Rx#:[id number] Sodium Chloride 0.9% 1, 1000 000 ml @ 999 mls/hr IV . Q1H1M [facility] Rx#:[id number] Sodium Chloride 3%( 180 80 Hypertonic) 500 ml @ 20 mls/hr IV .Q24H [facility] Rx#: [id number] Other 120 Output: Urine 375 415 265 Other: Voiding Method Indwelling Catheter Indwelling Catheter Indwelling Catheter ABP, PAP, CO, CI - Last Documented Arterial Blood Pressure 113/54 - Exam Gen. appearance the patient is calm comfortable intubated on a mechanical ventilator was sedated for now. Orogastric and orotracheal tube are both in place. The patient #6.5 ETT Head exam was generally normal. There was no scleral icterus or corneal arcus. Mucous membranes were moist. Neck was supple and without jugular venous distension, thyromegaly, or carotid bruits. Carotids were easily palpable bilaterally. There was no adenopathy. There is some questionable noisy breathing during inspiration and guarded and neck area, and this obviously raises the concern for a stridor. Lungs sounds are diminished and there is diffuse expiratory wheezes throughout the lung his bilaterally along with prolongation of exhalation phase of breathing. Left chest hematoma and the hematomas extending in the lateral aspect of the left chest extending posteriorly and inferiorly. Please refer to the CAT scan findings. The CAT scan showed a stable hematoma over the left anterior chest area extending laterally. Cardiac exam revealed the PMI to be normally situated and sized. The rhythm was regular and no extrasystoles were noted during several minutes of auscultation. The first and second heart sounds were normal and physiologic splitting of the second heart sound was noted. There were no murmurs, rubs, clicks, or gallops. Abdominal exam revealed normal bowel sounds. The abdomen was soft, non-tender, and without masses, organomegaly, or appreciable enlargement of the abdominal aorta. Examination of the extremities revealed easily palpable radial, femoral and pedal pulses. There was no cyanosis, clubbing or edema. Examination of the skin revealed no evidence of significant rashes, suspicious appearing nevi or other concerning lesions. Neurologically the patient is sedated and the patient is calm and comfortable. - Labs CBC & Chem 7: 12/24/19 04:10 12/24/19 07:55 Labs: Abnormal Lab Results - Last 24 Hours (Table) 12/23/19 12/23/19 12/23/19 Range/Units 12:51 13:15 13:15 WBC 20.3 H (3.8-10.6) k/uL RBC 2.52 L (4.30-5.90) m/uL Hgb 8.1 L (13.0-17.5) gm/dL Hct 23.8 L (39.0-53.0) % Plt Count (150-450) k/uL Neutrophils # (1.3-7.7) k/uL Lymphocytes # (1.0-4.8) k/uL Monocytes # (0-1.0) k/uL APTT (22.0-30.0) sec ABG pH 7.34 L (7.35-7.45) ABG pO2 (83-108) mmHg ABG Total CO2 26 H (19-24) mmol/L ABG O2 Saturation (94-97) % Sodium 116 L* (137-145) mmol/L Chloride 84 L (98-107) mmol/L Carbon Dioxide (22-30) mmol/L Creatinine 1.27 H (0.66-1.25) mg/dL Glucose 125 H (74-99) mg/dL POC Glucose (mg/dL) (75-99) mg/dL Calcium 7.6 L (8.4-10.2) mg/dL 12/23/19 12/23/19 12/23/19 Range/Units 18:42 18:42 18:50 WBC 17.6 H (3.8-10.6) k/uL RBC 2.30 L (4.30-5.90) m/uL Hgb 7.7 L (13.0-17.5) gm/dL Hct 22.0 L (39.0-53.0) % Plt Count 147 L (150-450) k/uL Neutrophils # (1.3-7.7) k/uL Lymphocytes # (1.0-4.8) k/uL Monocytes # (0-1.0) k/uL APTT (22.0-30.0) sec ABG pH (7.35-7.45) ABG pO2 (83-108) mmHg ABG Total CO2 (19-24) mmol/L ABG O2 Saturation (94-97) % Sodium 117 L* (137-145) mmol/L Chloride 87 L (98-107) mmol/L Carbon Dioxide 21 L (22-30) mmol/L Creatinine 1.33 H (0.66-1.25) mg/dL Glucose 132 H (74-99) mg/dL POC Glucose (mg/dL) 155 H (75-99) mg/dL Calcium 7.3 L (8.4-10.2) mg/dL 12/23/19 12/23/19 12/24/19 Range/Units 23:10 23:17 04:10 WBC 17.2 H (3.8-10.6) k/uL RBC 2.15 L (4.30-5.90) m/uL Hgb 7.1 L (13.0-17.5) gm/dL Hct 20.6 L (39.0-53.0) % Plt Count 149 L (150-450) k/uL Neutrophils # 15.2 H (1.3-7.7) k/uL Lymphocytes # 0.6 L (1.0-4.8) k/uL Monocytes # 1.2 H (0-1.0) k/uL APTT (22.0-30.0) sec ABG pH (7.35-7.45) ABG pO2 (83-108) mmHg ABG Total CO2 (19-24) mmol/L ABG O2 Saturation (94-97) % Sodium 118 L* (137-145) mmol/L Chloride 89 L (98-107) mmol/L Carbon Dioxide 19 L (22-30) mmol/L Creatinine 1.32 H (0.66-1.25) mg/dL Glucose 139 H (74-99) mg/dL POC Glucose (mg/dL) 174 H (75-99) mg/dL Calcium 7.3 L (8.4-10.2) mg/dL 12/24/19 12/24/19 12/24/19 Range/Units 04:10 05:35 07:55 WBC (3.8-10.6) k/uL RBC (4.30-5.90) m/uL Hgb (13.0-17.5) gm/dL Hct (39.0-53.0) % Plt Count (150-450) k/uL Neutrophils # (1.3-7.7) k/uL Lymphocytes # (1.0-4.8) k/uL Monocytes # (0-1.0) k/uL APTT (22.0-30.0) sec ABG pH (7.35-7.45) ABG pO2 216 H (83-108) mmHg ABG Total CO2 (19-24) mmol/L ABG O2 Saturation 99.1 H (94-97) % Sodium 118 L* 121 L (137-145) mmol/L Chloride 90 L (98-107) mmol/L Carbon Dioxide 20 L (22-30) mmol/L Creatinine 1.34 H (0.66-1.25) mg/dL Glucose 122 H (74-99) mg/dL POC Glucose (mg/dL) (75-99) mg/dL Calcium 7.3 L (8.4-10.2) mg/dL 12/24/19 Range/Units 09:50 WBC (3.8-10.6) k/uL RBC (4.30-5.90) m/uL Hgb (13.0-17.5) gm/dL Hct (39.0-53.0) % Plt Count (150-450) k/uL Neutrophils # (1.3-7.7) k/uL Lymphocytes # (1.0-4.8) k/uL Monocytes # (0-1.0) k/uL APTT 21.0 L (22.0-30.0) sec ABG pH (7.35-7.45) ABG pO2 (83-108) mmHg ABG Total CO2 (19-24) mmol/L ABG O2 Saturation (94-97) % Sodium (137-145) mmol/L Chloride (98-107) mmol/L Carbon Dioxide (22-30) mmol/L Creatinine (0.66-1.25) mg/dL Glucose (74-99) mg/dL POC Glucose (mg/dL) (75-99) mg/dL Calcium (8.4-10.2) mg/dL Microbiology - Last 24 Hours (Table) 12/23/19 22:37 Sputum Culture - Preliminary Sputum Assessment and Plan Plan: 1 acute COPD exacerbation with secondary shortness of breath 2 laryngeal mass, 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 The patient is going to undergo a tracheostomy tube insertion today. I would also need an upper airway evaluation and biopsies to establish diagnosis. 3 left lower lobe pneumonia/effusion 4 chest hematoma currently inactive and stable. Hematoma stable and that hemoglobin has dropped further down to 7.1. 5 Anemia with a drop in the hemoglobin probably due to development of a left chest hematoma which is currently stable. Hemoglobin is at 7.1. 6 pulmonary embolism which is questionable.. There is a questionable filling defect in the subsegmental right lower lobe pulmonary artery branch and the patient is currently on IV heparin. He has previous history of DVT in 2018 and he wasn't taking any form of anticoagulation. 8 hyponatremia improving and the sodium level is up to 121 and I took the patient off the hypertonic saline solution. 9 history of DVT of the right lower extremity 2018 10 smoker 11 alcoholism 12 questionable liver cirrhosis based on CAT scan findings 13 abnormal troponin without any significant EKG changes or chest pain 14 paroxysmal atrial fibrillation current rhythm is sinus and the patient was taken off the Cardizem drip Plan no anticoagulation for now and monitor the hemoglobin and repeat another level after eating of suspect from tracheostomy tube insertion Discontinue the hypertonic saline and switch this patient to normal state rate o f 50 mL an hour Tracheostomy tube insertion today by ENT . IV Zosyn IV Solu-Medrol DuoNeb neb last treatment [id number] Watch sodium levels closely every 4 hours Condition is critical. I discussed the findings with the . We'll continue to follow up this patient in the ICU closely. . evaluation was done and more than 30 minutes Time with Patient: Greater than 30
[2019-12-24 12:02] LABS: Glucose,Whole Blood 141 mg/dL (75-99)
[2019-12-24] MEDS: SODIUM CHLORIDE 0.9% 1,000 ML IV SCH (12:05)
[2019-12-24] MEDS: MULTIVITAMINS, THERA 1 EACH TAB PO SCH (12:07)
[2019-12-24] MEDS: THIAMINE 100 MG TAB PO SCH (12:07)
[2019-12-24] MEDS: FOLIC ACID 1 MG TAB PO SCH (12:07)
[2019-12-24] MEDS ORDERED: fentaNYL (PF) 50 MCG/ML 2 ML AMP ONE (16:20)
[2019-12-24] MEDS ORDERED: MIDAZOLAM 2 MG/2 ML VIAL ONE (16:20)
[2019-12-24] MEDS ORDERED: ROCURONIUM BROMIDE 10 MG/ML 5 ML VIAL IV ONE (16:20)
[2019-12-24] MEDS ORDERED: LIDOCAINE 1%-EPI 1:100,000 20 ML VIAL SQ ONE ×3 (16:46→16:53)
[2019-12-24] MEDS ORDERED: SODIUM CHLORIDE 0.9% 1,000 ML IV ONE (16:53)
--- NOTE | 2019-12-24 18:55 | P.CONS ---
History of Present Illness - Reason for Consult Consult date: 12/24/19 Hx PE Requesting physician: Nima Walsh - Chief Complaint shortness of breath, dizziness - History of Present Illness Mister Linda is a 64-year-old male patient we have been asked to see with a history of a pulmonary embolism. Patient is sedated and mechanically ventilated. All information is taken from the medical record available here. Medical records show that patient was being treated by wound care in 2018 secondary to traumatic ulceration of the left foot. 07/19/18 patient was diagnosed with a DVT of the right lower extremity, CFV distal to the upper calf. Unsure if patient was placed on any anticoagulation at that time. It certainly would've been a provoked clot. For this visit the patient was initially being treated outpatient for upper respiratory infection with antibiotics and steroids. He did not have any significant improvement in his shortness of breath. He was seen at [facility] with complaints of dizziness and pain on inspiration, patient was noted to have a degree of stridor. He had a CTA of the chest showing a small right lower lobe pulmonary embolism, bilateral lower extremity Doppler showed a chronic right lower extremity DVT, left lower extremity was negative for DVT. Patient had a CT of the neck and chest, trachea showing subglottal narrowing, CT of the chest abdomen and pelvis showing a left pleural effusion as well as a left hematoma. Anticoagulation has been held because of the hematoma and large drop in Hg. Patient has been intubated to protect airway. ENT is going to perform tracheostomy and biopsy today. Patient does not appear to be in any distress when examined, is responsive to being physically examine by pulling away and facial expressions. Patient has a past medical history including skin cancer, GERD, COPD, hypertension, liver disease, hyperlipidemia and anxiety Review of Systems ROS unobtainable: due to endotracheal tube Past Medical History Past Medical History: COPD, Deep Vein Thrombosis (DVT), GERD/Reflux, Hyperlipidemia, Hypertension, Liver Disease, Pneumonia, Pulmonary Embolus (PE) Additional Past Medical History / Comment(s): Arthritis History of Any Multi-Drug Resistant Organisms: None Reported Past Surgical History: Unable to Obtain Additional Past Surgical History / Comment(s): COLONOSCOPY. BILAT CATARACTS REMOVED Past Anesthesia/Blood Transfusion Reactions: No Reported Reaction Past Psychological History: Anxiety Smoking Status: Current every day smoker Past Alcohol Use History: Unable to Obtain, Daily Additional Past Alcohol Use History / Comment(s): SMOKES 1 PPD SINCE ABOUT AGE 12. DRINKS 10 BEERS DAILY Past Drug Use History: Unable to Obtain, Marijuana - Past Family History Mother Family Medical History: Hypertension Father History Unknown: Yes Family Medical History: Hypertension Medications and Allergies Home Medications Medication Instructions Recorded Confirmed Type Atorvastatin [Lipitor] 20 mg PO DAILY 07/05/18 12/21/19 History Cholecalciferol [Vitamin D3] 1,000 unit PO BID 07/05/18 12/21/19 History Furosemide [Lasix] 40 mg PO DAILY 07/05/18 12/21/19 History Multivitamin [Men's Multi-Vitamin] 1 tab PO DAILY 07/05/18 12/21/19 History Junction-3 Fatty Acids/Fish Oil [Fish 2 cap PO DAILY 07/05/18 12/21/19 History Oil 1,000 mg Softgel] Potassium Chloride [K-Tab ER] 10 meq PO DAILY 07/05/18 12/21/19 History Ranitidine HCl [Zantac] 150 mg PO DAILY 07/05/18 12/21/19 History Spironolactone 50 mg PO DAILY 07/05/18 12/21/19 History cloNIDine HCL [Catapres] 0.2 mg PO BID 07/05/18 12/21/19 History traMADol HCl [Ultram] 50 mg PO BID PRN 07/05/18 12/21/19 History Amoxic-Pot Clav 875-125Mg 1 tab PO BID 12/21/19 12/21/19 History [Augmentin 875-125] Clopidogrel Bisulfate [Plavix] 75 mg PO DAILY 12/21/19 12/21/19 History Metoprolol Tartrate [Lopressor] 50 mg PO DAILY 12/21/19 12/21/19 History diphenhydrAMINE [Benadryl] 25 mg PO DAILY PRN 12/21/19 12/21/19 History predniSONE See Taper PO DAILY 12/21/19 12/21/19 History Allergies Allergy/AdvReac Type Severity Reaction Status Date / Time lisinopril Allergy Swelling Verified 12/21/19 21:45 acetaminophen [From Tylenol] AdvReac LIVER Verified 12/21/19 21:45 PROBLEMS PER NSAIDS (Non-Steroidal AdvReac LIVER Verified 12/21/19 21:45 Anti-Inflamma PROBLEMS PER Physical Exam Vitals: Vital Signs Temp Pulse Resp BP Pulse Ox 12/24/19 11:00 73 16 100 12/24/19 10:30 82 16 99 12/24/19 10:00 84 16 99 12/24/19 09:30 84 19 99 12/24/19 09:00 98.3 F 85 17 98 12/24/19 08:30 82 18 98 12/24/19 08:10 84 12/24/19 08:00 97.7 F 79 13 99 12/24/19 07:55 80 12/24/19 07:47 79 12/24/19 07:30 78 12 99 12/24/19 07:00 78 14 99 12/24/19 06:30 83 14 98 12/24/19 06:00 81 14 99 12/24/19 05:30 78 14 97 12/24/19 05:00 75 14 100 12/24/19 04:30 97.8 F 73 14 100 12/24/19 04:00 74 14 100 12/24/19 03:30 73 14 100 12/24/19 03:00 74 13 100 12/24/19 02:30 75 13 100 12/24/19 02:00 74 15 100 12/24/19 01:30 79 17 100 12/24/19 01:00 82 15 100 12/24/19 00:30 81 16 100 12/24/19 00:23 85 14 100 12/24/19 00:00 96.8 F L 93 16 100 12/23/19 23:30 86 17 100 12/23/19 23:00 81 14 100 12/23/19 22:45 80 12/23/19 22:30 78 16 100 12/23/19 22:24 80 12/23/19 22:00 72 15 99 12/23/19 21:30 65 18 100 12/23/19 21:00 74 17 99 12/23/19 20:30 73 16 96 12/23/19 20:00 96.8 F L 80 14 96 12/23/19 19:30 88 15 93 L 12/23/19 19:00 95 14 96 12/23/19 18:30 101 H 16 99 12/23/19 18:00 85 18 100 12/23/19 17:30 82 16 100 12/23/19 17:00 83 15 100 12/23/19 16:30 80 19 85/60 100 12/23/19 16:00 97.4 F L 90 17 100 12/23/19 15:34 99 12/23/19 15:30 98 14 100 12/23/19 15:12 96 12/23/19 15:00 103 H 22 100 12/23/19 14:30 110 H 19 63/46 100 12/23/19 14:00 115 H 20 134/75 99 12/23/19 13:30 144 H 29 H 181/151 99 12/23/19 13:00 142 H 14 127/93 100 12/23/19 12:30 98.8 F 129 H 14 86/54 93 L Intake and Output 12/23/19 12/24/19 12/24/19 22:59 06:59 14:59 Intake Total 2192.675 333 477.645 Output Total 275 315 265 Balance 1917.675 18 212.645 Intake: IV 9 93 130 Normal Saline Pressure 9 33 30 Bag Sodium Chloride 3%( 60 100 Hypertonic) 500 ml @ 20 mls/hr IV .Q24H ONE Rx#: [id number] Intake, IV Titration 2123.675 180 347.645 Amount Diltiazem 125 mg In 85.167 Sodium Chloride 0.9% 100 ml @ Per Protocol IV .Q0M [facility] Rx#:[id number] Norepinephrine 32 mg In 15.447 Sodium Chloride 0.9% 218 ml @ 0.05 MCG/KG/MIN 1. 533 mls/hr IV .Q24H [facility] Rx#:[id number] Piperacillin-Tazobactam 3 50 .375 gm In Sodium Chloride 0.9% 100 ml @ 25 mls/hr IVPB Q8H [facility] Rx#: [id number] Propofol 1,000 mg In 88.228 100 212.478 Empty Bag 1 bag @ Titrate IV .Q0M [facility] Rx#: [id number] Sodium Chloride 0.9% 1, 1000 000 ml @ 999 mls/hr IV . Q1H1M [facility] Rx#:[id number] Sodium Chloride 0.9% 1, 1000 000 ml @ 999 mls/hr IV . Q1H1M [facility] Rx#:[id number] Sodium Chloride 3%( 20 80 Hypertonic) 500 ml @ 20 mls/hr IV .Q24H ONE Rx#: [id number] Other 60 60 Output: Urine 275 315 265 Other: Voiding Method Indwelling Catheter Indwelling Catheter Indwelling Catheter Weight 72 kg ABP, PAP, CO, CI - Last 8 Hours Arterial Blood Pressure 113/54 Arterial Blood Pressure 122/55 Arterial Blood Pressure 127/56 Arterial Blood Pressure 129/59 Arterial Blood Pressure 125/56 Arterial Blood Pressure 133/58 Arterial Blood Pressure 134/59 Arterial Blood Pressure 125/56 Arterial Blood Pressure 125/58 Arterial Blood Pressure 119/56 Arterial Blood Pressure 114/57 Arterial Blood Pressure 114/53 Arterial Blood Pressure 100/48 Arterial Blood Pressure 118/51 - Constitutional General appearance: average body habitus, no acute distress - EENT Eyes: anicteric sclerae - Neck Neck: no lymphadenopathy - Respiratory Respiratory: bilateral: diminished - Cardiovascular Rhythm: regular Heart sounds: normal: S1, S2 Abnormal Heart Sounds: no systolic murmur, no diastolic murmur, no rub, no S3 Gallop, no S4 Gallop, no click, no other leg Peripheral Edema: bilateral: Trace - Gastrointestinal General gastrointestinal: no absent bowel sounds, no decreased bowel sounds, no distended, hepatomegaly, no hyperactive bowel sounds, normal bowel sounds, no organomegaly, no rigid, no scaphoid, soft, no splenomegaly, no tenderness, no umbilical hernia, no ventral hernia - Integumentary scattered ecchymosis on bilateral forearms - Neurologic KANE-sedated - Musculoskeletal Musculoskeletal: no gait normal, no generalized weakness, no strength equal bilaterally, no right sided weakness, no left sided weakness - Psychiatric Psychiatric: no A&O x's 3, no appropriate affect, no intact judgment & insight Results CBC & Chem 7: 12/24/19 04:10 12/24/19 15:50 Labs: Abnormal Lab Results - Last 24 Hours (Table) 12/23/19 12/23/19 12/23/19 Range/Units 12:51 13:15 13:15 WBC 20.3 H (3.8-10.6) k/uL RBC 2.52 L (4.30-5.90) m/uL Hgb 8.1 L (13.0-17.5) gm/dL Hct 23.8 L (39.0-53.0) % Plt Count (150-450) k/uL Neutrophils # (1.3-7.7) k/uL Lymphocytes # (1.0-4.8) k/uL Monocytes # (0-1.0) k/uL APTT (22.0-30.0) sec ABG pH 7.34 L (7.35-7.45) ABG pO2 (83-108) mmHg ABG Total CO2 26 H (19-24) mmol/L ABG O2 Saturation (94-97) % Sodium 116 L* (137-145) mmol/L Chloride 84 L (98-107) mmol/L Carbon Dioxide (22-30) mmol/L Creatinine 1.27 H (0.66-1.25) mg/dL Glucose 125 H (74-99) mg/dL POC Glucose (mg/dL) (75-99) mg/dL Calcium 7.6 L (8.4-10.2) mg/dL 12/23/19 12/23/19 12/23/19 Range/Units 18:42 18:42 18:50 WBC 17.6 H (3.8-10.6) k/uL RBC 2.30 L (4.30-5.90) m/uL Hgb 7.7 L (13.0-17.5) gm/dL Hct 22.0 L (39.0-53.0) % Plt Count 147 L (150-450) k/uL Neutrophils # (1.3-7.7) k/uL Lymphocytes # (1.0-4.8) k/uL Monocytes # (0-1.0) k/uL APTT (22.0-30.0) sec ABG pH (7.35-7.45) ABG pO2 (83-108) mmHg ABG Total CO2 (19-24) mmol/L ABG O2 Saturation (94-97) % Sodium 117 L* (137-145) mmol/L Chloride 87 L (98-107) mmol/L Carbon Dioxide 21 L (22-30) mmol/L Creatinine 1.33 H (0.66-1.25) mg/dL Glucose 132 H (74-99) mg/dL POC Glucose (mg/dL) 155 H (75-99) mg/dL Calcium 7.3 L (8.4-10.2) mg/dL 12/23/19 12/23/19 12/24/19 Range/Units 23:10 23:17 04:10 WBC 17.2 H (3.8-10.6) k/uL RBC 2.15 L (4.30-5.90) m/uL Hgb 7.1 L (13.0-17.5) gm/dL Hct 20.6 L (39.0-53.0) % Plt Count 149 L (150-450) k/uL Neutrophils # 15.2 H (1.3-7.7) k/uL Lymphocytes # 0.6 L (1.0-4.8) k/uL Monocytes # 1.2 H (0-1.0) k/uL APTT (22.0-30.0) sec ABG pH (7.35-7.45) ABG pO2 (83-108) mmHg ABG Total CO2 (19-24) mmol/L ABG O2 Saturation (94-97) % Sodium 118 L* (137-145) mmol/L Chloride 89 L (98-107) mmol/L Carbon Dioxide 19 L (22-30) mmol/L Creatinine 1.32 H (0.66-1.25) mg/dL Glucose 139 H (74-99) mg/dL POC Glucose (mg/dL) 174 H (75-99) mg/dL Calcium 7.3 L (8.4-10.2) mg/dL 12/24/19 12/24/19 12/24/19 Range/Units 04:10 05:35 07:55 WBC (3.8-10.6) k/uL RBC (4.30-5.90) m/uL Hgb (13.0-17.5) gm/dL Hct (39.0-53.0) % Plt Count (150-450) k/uL Neutrophils # (1.3-7.7) k/uL Lymphocytes # (1.0-4.8) k/uL Monocytes # (0-1.0) k/uL APTT (22.0-30.0) sec ABG pH (7.35-7.45) ABG pO2 216 H (83-108) mmHg ABG Total CO2 (19-24) mmol/L ABG O2 Saturation 99.1 H (94-97) % Sodium 118 L* 121 L (137-145) mmol/L Chloride 90 L (98-107) mmol/L Carbon Dioxide 20 L (22-30) mmol/L Creatinine 1.34 H (0.66-1.25) mg/dL Glucose 122 H (74-99) mg/dL POC Glucose (mg/dL) (75-99) mg/dL Calcium 7.3 L (8.4-10.2) mg/dL 12/24/19 12/24/19 Range/Units 09:50 12:01 WBC (3.8-10.6) k/uL RBC (4.30-5.90) m/uL Hgb (13.0-17.5) gm/dL Hct (39.0-53.0) % Plt Count (150-450) k/uL Neutrophils # (1.3-7.7) k/uL Lymphocytes # (1.0-4.8) k/uL Monocytes # (0-1.0) k/uL APTT 21.0 L (22.0-30.0) sec ABG pH (7.35-7.45) ABG pO2 (83-108) mmHg ABG Total CO2 (19-24) mmol/L ABG O2 Saturation (94-97) % Sodium (137-145) mmol/L Chloride (98-107) mmol/L Carbon Dioxide (22-30) mmol/L Creatinine (0.66-1.25) mg/dL Glucose (74-99) mg/dL POC Glucose (mg/dL) 141 H (75-99) mg/dL Calcium (8.4-10.2) mg/dL Microbiology - Last 24 Hours (Table) 12/23/19 22:37 Sputum Culture - Preliminary Sputum Comments: CT neck, report reviewed CT scan - abdomen: report reviewed CT scan - chest: report reviewed CT scan - pelvis: report reviewed Venous US: report reviewed Assessment and Plan (1) Pulmonary emboli Narrative/Plan: Anticoagulation has been held secondary to bleeding. Patient is going to be having tracheostomy with biopsies today. Coags and fibrinogen ordered Current Visit: Yes Status: Acute Priority: High Code(s): I26.99 - OTHER PULMONARY EMBOLISM WITHOUT ACUTE COR PULMONALE SNOMED Code(s): 23846207 Plan: Subglottic tracheal narrowing. Patient has been intubated by Critical Care team to maintain airway. Plan is for tracheostomy with biopsy today. Attests: I have performed history and physical examination of pt and developed impression and plan of care. Discussed with dictator. I agree with dictator's note, documented as a scribe.
[2019-12-24] MEDS: NOREPINEPHRINE 32 MG in SODIUM CHLORIDE 0.9% 218 ML IV SCH (19:24)
--- NOTE | 2019-12-24 20:10 | PN ---
PROGRESS NOTE Patient is seen for followup for hyponatremia. The patient is currently on the vent. He has been maintained on 3% saline. Serum sodium had increased to 121 this morning, it was lowest at 112 mEq/L. The urine osmolality was 320 with random urine sodium of 14. Blood pressure is on the lower side. Chest x-ray shows left lower lobe pneumonia with some diffusion atelectasis and atelectasis. EXAMINATION: Today patient is on the vent. He is sedated. Blood pressure was 105/49, heart rate 67 per minute, he is afebrile. Examination of the heart S1, S2. Examination of the lungs, bilateral breath sounds are heard. Abdomen is soft, nontender. Examination of lower extremities shows no significant edema. LAB: Show serum sodium of 121 this morning and then again this afternoon. The 3% saline was discontinued this morning and patient is now on normal saline at 50 mL an hours. 1. If this is SIADH, this sodium will worsen with saline administration. If the patient is truly hypovolemic this will improved with normal saline. Continue tube feedings to maintain adequate osmolar intake. Minimize free water down the feeding tube. 2. 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 Scheduled for tracheostomy today. 3. Possible pulmonary embolism with previous history of pulmonary embolism. 4. Paroxysmal atrial fibrillation, currently in sinus rhythm. PLAN: Continue normal saline for now. Monitor sodium closely. If the etiology is truly SIADH patient's sodium will worsen with normal saline administration. It should improve if it is truly hypovolemic hyponatremia. MMODL / IJN: [id number] /
[2019-12-24 20:36] LABS: Basophils % (A) 0 %; Eosinophils # (A) 0.1 k/uL (0-0.7); Eosinophils % (A) 1 %; HCT 21.1 % (39.0-53.0); HGB 7.2 gm/dL (13.0-17.5); Lymphocytes # (A) 0.6 k/uL (1.0-4.8); Lymphocytes % (A) 3 %; MCH 33.7 pg (25.0-35.0); MCHC 34.3 g/dL (31.0-37.0); MCV 98.2 fL (80.0-100.0); Mean Platelet Volume 8.7; Monocytes % (A) 5 %; Neutrophils % (A) 90 %; Platelet Count 167 k/uL (150-450); RBC 2.15 m/uL (4.30-5.90); WBC 18.8 k/uL (3.8-10.6)
--- NOTE | 2019-12-24 20:37 | PN ---
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 The ENT is following the patient for possible tracheostomy at this time. Dr. Tabares has done a bronchoscope. The patient is currently mechanically intubated. The patient also had atrial fibrillation. Patient also was sedated previously. The patient also had sepsis subsegmental pulmonary embolism. The CT angio done elsewhere. The patient is on heparin because of hematoma formation. Heparin is on hold at this time. The patient is on IV Zosyn currently. The patient also has severe hyponatremia and nephrology has seen the patient. 3% saline was given and sodium tatyana to 121 at this time. The patient is off Cardizem drip at this time. Multiple consultants are following the patient closely. Patient being closely monitored in ICU. PAST MEDICAL HISTORY: Reviewed. REVIEW OF SYMPTOMS: Review of systems could not be taken because the patient is mechanically ventilated and sedated. CURRENT MEDICATIONS: 1. Ventolin 2.5 q.2h p.r.n. 2. Lipitor 20 mg daily. 3. Pulmicort 1 mg b.i.d. 4. Peridex 15 mL t.i.d. 5. Vitamin D3 1000 subcu b.i.d. 6. Catapres 0.2 b.i.d. 7. Benadryl 25 mg daily. 8. Folic acid 1 mg daily. 9. Perforomist 20 mcg b.i.d. 10.Ativan. 11.Solu-Medrol 60 IV q.6 hours. 12.Lopressor. 13.Multivitamins. 14.Narcan. 15.Habitrol 14 daily. 16.Zosyn 3.375 IV q.8. 17.Propofol. 18.Vitamin B1. 19.Ultram. PHYSICAL EXAM: Patient is mechanically ventilated and sedated. Pulse 71. Blood pressure 115/52, respiration 15, temperature normal. Pulse ox 100 percent on mechanical ventilation. Vent settings are noted. HEENT: Conjunctivae normal. Oral mucosa moist. Neck is no jugular venous distention. No carotid bruit. No lymph node enlargement. CARDIOVASCULAR: S1, S2 muffled. No S3, no S4. RESPIRATORY: Breath sounds diminished in the bases. Bilateral scattered rhonchi and crackles. ABDOMEN: Soft, nontender. No mass palpable. LEGS are no edema. No swelling. CENTRAL NERVOUS SYSTEM: Diffusely weak and sedated. Labs are INR is 0.9, sodium is 121 and 132. LABS: WBC 17.2, hemoglobin 7.1. Otherwise D-dimer is 0.86. Sodium is 132, creatinine 1.34. ASSESSMENT: 1. Shortness of breath with possible chronic obstructive pulmonary disease acute exacerbation with acute purulent tracheobronchitis with acute hypoxic respiratory failure on mechanical ventilation. 2. 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 3. Acute pulmonary embolism on the right lobe. 4. Bruise on the chest hematoma off heparin at this time. 5. Atrial fibrillation with fast ventricular rate. 6. Severe hyponatremia, possibly Syndrome of inappropriate antidiuretic hormone status post 3% saline. 7. History of continued ongoing nicotine dependence. 8. Troponin 0.095 indeterminate. 9. Hypotension. 10.Hyperlipidemia. 11.Chronic liver disease. 12.Gastroesophageal reflux disease. 13.History of nicotine dependence. 14.History of anxiety. 15.History of ETOH. 16.FULL CODE. 17.Hypokalemia. RECOMMENDATIONS AND DISCUSSION: In this 64-year-old gentleman who presented with multiple complex medical issues, at this time, I recommend to continue current medications, symptomatic treatment. Otherwise, at this time I would recommend continue the bronchodilators. Continue mechanical ventilation by Dr. Tabares, tracheostomy per ENT. Await biopsy reports. Otherwise empiric antibiotics, Solu-Medrol. Monitor blood sugars closely. Proton pump inhibitors. DVT prophylaxis. Guarded prognosis because of multiple complex medical issues. Further recommendations to follow. MMODL / IJN: [id number] /
--- NOTE | 2019-12-24 22:00 | XR ---
EXAMINATION TYPE: XR chest 1V portable DATE OF EXAM: 12/24/2019 CLINICAL HISTORY: NG tube placement . TECHNIQUE: Single AP portable semiupright view of the chest is obtained. COMPARISON: Chest x-ray from earlier today an older studies FINDINGS: There is new tracheostomy tube and interval removal of endotracheal tube. Stable left subc lavian central venous catheter. New nasogastric tube projects just below the diaphragm. Background chronic emphysematous change with left basilar opacity and biapical moderate to severe sca rring including left apical curvilinear calcification. Cardiac silhouette size stable and within norm al limits with atherosclerotic aorta. Osseous structures are intact. IMPRESSION: New nasogastric tube projects below diaphragm. Interval replacement of endotracheal tube with tracheostomy tube. Other findings stable with chronic parenchymal changes and patchy left basila r acute infiltrate and/or atelectasis and suspected small left pleural effusion are all redemonstrate d.
[2019-12-24 23:30] LABS: Glucose,Whole Blood 146 mg/dL (75-99)
[2019-12-25] MEDS: PROPOFOL 1,000 MG in EMPTY BAG 1 BAG IV SCH ×4 (01:12→20:46)
[2019-12-25] MEDS: PIPERACILLIN-TAZOBACTAM 3.375 GM in SODIUM CHLORIDE 0.9% 100 ML IVPB SCH ×3 (01:26→19:26)
[2019-12-25 04:06] LABS: ABG Base Excess -2.5 mmol/L; ABG HCO3 23 mmol/L (21-25); ABG Oxygen Saturation 96.1 % (94-97); ABG PCO2 39 mmHg (35-45); ABG PH 7.38 (7.35-7.45); ABG PO2 78 mmHg (83-108); ABG TCO2 24 mmol/L (19-24)
[2019-12-25 04:21] LABS: Allen Test Performed? no
[2019-12-25 04:31] LABS: MCHC 33.6 g/dL (31.0-37.0); MCV 98.3 fL (80.0-100.0); Mean Platelet Volume 8.6; Platelet Count 165 k/uL (150-450); RDW 13.3 % (11.5-15.5); WBC 17.1 k/uL (3.8-10.6)
[2019-12-25 04:51] LABS: Albumin 2.2 g/dL (3.5-5.0); Calcium 7.7 mg/dL (8.4-10.2); Total Bilirubin 0.5 mg/dL (0.2-1.3); Total Protein 4.4 g/dL (6.3-8.2)
[2019-12-25 05:00] LABS: HGB 6.6 gm/dL (13.0-17.5)
[2019-12-25 05:01] LABS: HCT 19.6 % (39.0-53.0)
[2019-12-25] MEDS: methylPREDNISolone SOD SUCCI 125 MG/2 ML VIAL IV SCH ×4 (05:57→23:32)
[2019-12-25 06:01] LABS: Glucose,Whole Blood 129 mg/dL (75-99)
[2019-12-25] MEDS: INSULIN ASPART (NovoLOG) 100 UNIT/ML VIAL SQ SCH ×4 (06:11→23:33)
--- NOTE | 2019-12-25 06:26 | OP ---
OPERATIVE REPORT DATE OF SURGERY: 12/24/2019. 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 ANESTHESIA: General. OPERATIVE PROCEDURES: 1. Urgent tracheostomy with insertion of a #8 Shiley cuffed fenestrated tracheostomy tube. 2. Suspension microlaryngoscopy with biopsy of the left true vocal cord anterior commissure, left laryngeal mass and right true vocal cord. OPERATING SURGEON: Dr. Lawrence. COMPLICATIONS: None. ESTIMATED BLOOD LOSS: Less than 25 mL from the tracheostomy. OPERATIVE PROCEDURE: The patient was placed on operating table in supine position. After uneventful induction of via a previously placed endotracheal tube, satisfactory general anesthesia was obtained. Initial attention was directed towards performing the tracheostomy portion of the procedure. Therefore, the patient's anterior neck was shaved, prepped, and draped in the usual customary fashion. Following this, the usual landmarks of the thyroid cartilage notch, cricoid bone, and the sternal notch, were located and marked using a Codman marking pen. Next in an area approximately 2 cm above the sternal notch between the cricoid bone and the sternal notch, a proposed incision was outlined using a Codman marker in a horizontal fashion running between the two sternomastoid muscles. The area was subsequently infiltrated with approximately 1 or 2 mL of 1% Xylocaine with epinephrine 1:100,000. After waiting several minutes for the medication to take effect, a skin incision was made using a #15 scalpel through skin and subcutaneous tissue down to the underlying fascia. The underlying superficial fascia was sharply incised and the fatty tissue was bluntly dissected away using a combination of 4x4s and peanut pushers and curved hemostats. Next, the usual superior and inferior flaps were created in the usual fashion. This was done using blunt dissection. Next, the fascia overlying the strap muscles was encounter and this was incised in the midline using a #10 scalpel blade. This incision was carried down to the underlying tracheal cartilage rings. Next, a tracheostomy hook was placed in the cricoid cartilage and this was elevated so as to expose the tracheal rings. The tracheal rings were counted and with the assistance of the anesthesia department. an incision was made between the 2nd and 3rd cartilaginous rings as the endotracheal tube was withdrawn. A small window was taken out of the 3rd tracheal cartilage and care was taken to grasp this piece with a pair of Tracey's and remove it so that it did not fall into the trachea proper. Next, the tracheal dilator was employed in the usual and customary fashion. Previously the tracheostomy kit had been inspected and balloon had been inspected to make sure that it was patent and with the tracheal dilator in place, the tracheostomy tube was inserted in the usual and customary fashion without difficulty. Once the tracheostomy tube was inserted then the inner cannula was inserted and the patient was hooked up to the anesthesia circuit and the endotracheal tube was completely removed. After inflating the tracheostomy balloon, adequate ventilation was obtained. Although #8 tracheostomy tube was inserted, there may be a very slight leak around the tracheostomy tube cuff at this point. If necessary, the RNs in the ICU or respiratory therapy can place more air in the tracheostomy cuff. The wound was not closed and in fact was left open to allow for any drainage. Next, the tracheostomy tube was secured to the skin in the usual fashion using 4-0 nylon sutures. A tracheostomy dressing was applied and the tracheostomy was secured with tracheostomy strap. Next, attention was directed toward performing the suspension microlaryngoscopy. Therefore with the patient in the usual position, the laryngoscope was then introduced into the oropharynx and the entire hypopharynx including the right and left pyriform sinus, valleculae and epiglottis were inspected and were found to be free of any suspicious lesions. Next, the tip of the anterior commissure laryngoscope was placed at the tip of the epiglottis and was advanced slowly into the laryngeal introitus. Immediately, it was noted there was significant amount of edema and swelling of the soft tissues of the supraglottic area. Eventually, the glottic chink was visualized and the left and right true vocal cords were visualized. It was noted that the left true vocal cord was essentially invaded with some type of mass where as the right true vocal cord appeared to be essentially normal although somewhat irregular. In addition to this, whatever this lesion was on the left true vocal cord it appeared to crossover from the left true vocal cord to the right side. Although it did cross, I did not see any real significant involvement of most of the right true vocal cord. If there was any involvement, it was just slightly anteriorly. Therefore, using the up- biting forceps, multiple biopsies were taken of the left true vocal cord and of the anterior commissure and of the anterior most part of the right true vocal cord. These specimens were placed in formalin and sent to Pathology for permanent sectioning. The patient was given 10 mg of Decadron intraoperatively to reduce any postoperative laryngeal edema. At this point, it is also be noted that in the process of doing this procedure, the Lewy apparatus was attached to the handle of the laryngoscope and the laryngoscope was suspended on the patient's chest. Using the Zeiss operating microscope, the larynx was carefully inspected prior to the biopsies under magnified visualization. Once the biopsies were done, then the Lewy apparatus was removed and the laryngoscope was carefully removed and at this point, the procedure was terminated. Deep palpation of the neck while the patient was under anesthesia was negative for any adenopathy. There were no intraoperative complications. The patient tolerated procedure well and was returned to recovery room in satisfactory condition and will be further returned to the intensive care unit. Final pathology is pending. MMODL / IJN: [id number] / MTDD
--- NOTE | 2019-12-25 06:50 | CONS ---
CONSULTATION DATE OF CONSULTATION: 12/23/2019 REASON FOR CONSULTATION: Impending airway obstruction due to a laryngeal mass, possible emergency tracheostomy. HISTORY OF PRESENT ILLNESS: Patient is a 64-year-old male who is a poor historian and most of the information is obtained from the patient's family and from the chart. The patient was seen in the [facility] on 12/21/2019 complaining of shortness of breath. He states that on the Tuesday before being seen in [facility] that he was experiencing difficulty breathing and that he was subsequently seen at the [facility] where he was treated with steroids and an updraft treatment and sent home. He subsequently developed further chest pain and difficulty breathing and returned to [facility] where further examination including a CT angiogram showed evidence of a small pulmonary embolus. At that point, the patient was transferred from [facility] to [facility]. The patient smokes approximately 1 to 2 packs of cigarettes a day and is a heavy beer drinker, at least 10+ beers on a daily basis. He was evaluated in the emergency room at [facility] and at that time was found to be metabolically compromised in that he had a low sodium and low potassium and other abnormal lab values. Therefore, he was initially admitted to the regular hospital floor for further workup and treatment. While on the hospital floor, it was noted the patient was complaining having an increased hoarseness and inspiratory stridor since his admission. A CT of the chest and neck showed evidence of a large mass at the level of the left true vocal cord and slightly subglottically. The airway was extremely narrow to 3 to 5 mm. He was therefore transferred to the ICU because of increasing stridor and difficulty breathing. I was contacted by Dr. Tabares regarding the possibility of doing a bedside emergency tracheostomy. I informed him that I prefer not to perform bedside tracheostomies because of problems that can arise from that and would prefer that he be taken to the operating room and this will be done in a controlled situation. Dr. Tabares discussed the situation with Dr. Evans, the dispatcher service chief and was decided that the patient would be taken to the operating room and at that time he would be scoped by Dr. Tabares and if possible he would be intubated and that I would standby so that the ENT service would be present in the operating room in case an emergency tracheostomy was required due to obstruction of airway. We proceeded to the operating room, and in fact, Dr. Tabares was able to visualize the patient's glottis and Dr. Evans was able to intubate the patient with a 6- 1/2 endotracheal tube. At that point, because of the patient being metabolically compromised with such a low sodium and potassium, it was recommended that the tracheostomy be postponed until give time for the medical service to attempt to increase the patient's sodium and potassium levels. Therefore, it was elected that the patient would be taken back to the operating room the next day, 12/24/2019, and at that time, a tracheostomy would be performed and if possible, also a suspension microlaryngoscopy with biopsy of the laryngeal lesion would be done at the same time. The patient was therefore then returned back to the intensive care unit. PAST MEDICAL HISTORY: Past medical history reveals patient has allergies to LISINOPRIL, TYLENOL, and NSAIDs. His home medications include Lopressor, Plavix, Benadryl, Catapres, Lasix, Ultram, Zantac, Lipitor, spironolactone. REVIEW OF SYSTEMS: Review of systems is positive with respect to: Cardiovascular system for hypertension and ASHD. Respiratory is positive for COPD/emphysema. Gastrointestinal is positive for GERD (gastroesophageal reflux disorder). Metabolic endocrine system is positive for hypercholesterolemia. The remainder of review of systems is unremarkable. PHYSICAL EXAMINATION: This patient is a 64-year-old male who at the time of initial contact prior to surgery was alert and cooperative but was noted to be a poor historian. HEENT: Patient is normocephalic. Tympanic membranes are normal. Middle ear spaces are free of any fluid or infection. Pupils equal, round, react to light and accommodation. Extraocular movements are within normal limits. Intranasal examination reveals moderate to severe septal deviation to the left with significant bilateral hypertrophy of the inferior turbinates and thick clear mucus coming from both maxillary sinuses and draining down the posterior pharynx. Examination of the oropharynx reveals poor dentition with heavy plaque on all of the patient's teeth as well as several caries noted. No attempt at the initial visit was made to examine the larynx for fear of compromising the airway until the patient could be taken to surgery. Palpation of neck was negative for any neck masses or lymphadenopathy. Cranial nerves 2 through 12 and remainder of the head and neck exam were all within normal limits. CHEST/CARDIOVASCULAR: Both lungs are clear, although there is some slight wheezing in the upper mcgovern, which is most likely from laryngeal origin and breath sounds are somewhat noisy. Otherwise, the lung mcgovern do not display any evidence of any actual rhonchi or rales. Lung sounds are somewhat distant though. The patient is in regular sinus rhythm. S1, S2 are present without any murmurs, S3s or S4s. ABDOMEN: There is no evidence of any masses, megaly, or tenderness. The abdomen is soft. The remainder of physical exam is unremarkable. 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 PLAN: The patient will be taken to surgery and an attempt will be made to do an intubation under light anesthesia. The plan is that Dr. Tabares will scope this patient and attempt will be made to intubate him. If not, an emergency tracheostomy will be performed, otherwise, the tracheostomy will be performed at a later time on 12/24/2019. I want to take this opportunity to thank you for allowing me to assist you in the care of your patient. I will continue to follow this patient with you while he is in the hospital. If I can be of any further assistance, please feel free to call my office. MMODL / IJN: [id number] / MTDD
[2019-12-25] MEDS: MORPHINE SULFATE 2 MG/ML SYRINGE IVP PRN ×3 (07:35→23:23)
[2019-12-25] MEDS: ALBUTEROL NEBULIZED 2.5 MG/3 ML INHALATION PRN ×5 (07:42→23:32)
[2019-12-25] MEDS: BUDESONIDE 1 MG/2 ML NEBU INHALATION SCH ×2 (07:42→18:57)
[2019-12-25] MEDS: FORMOTEROL FUMARATE 20 MCG/2 ML NEBU INHALATION SCH ×2 (07:42→18:57)
[2019-12-25] MEDS: SODIUM CHLORIDE 0.9% 1,000 ML IV SCH (08:00)
--- NOTE | 2019-12-25 08:17 | PN ---
PROGRESS NOTE Mr. Laurent is a 64-year-old male who presented with progressive symptoms of dyspnea, was found to have severe narrowing of his trachea with outside compression from the vocal cord fold mass. He underwent tracheostomy placement yesterday by Dr. Lawrence with biopsy. He continued to be in sinus mechanism. He had no further episode of atrial fibrillation. He is intubated and sedated at this time. Hemodynamically, he is stable. He continues to be at this time on clonidine 0.2 mg twice a day, metoprolol tartrate 25 mg twice a day. PHYSICAL EXAMINATION: Blood pressure 128/60 with the heart in the 90s. LUNGS: Clear anteriorly. HEART: Regular rate and rhythm. S1, S2. No S3. No gallop appreciated. ABDOMEN: Soft. Positive bowel sounds. EXTREMITIES: No edema noted. LAB DATA: His hemoglobin dropped to 6.6, white blood cells 17.1. BUN and creatinine of 18 and 1.35. His sodium is up to 128. IMPRESSION: 1. Respiratory failure with vocal cord mass and compression of the trachea, status post tracheostomy. 2. Chest wall hematoma. 3. Worsening anemia. 4. Hyponatremia, stabilizing. 5. Paroxysmal atrial fibrillation back in sinus mechanism. The episode occurred during his initial bronchoscopy. 6. Prior history of alcohol intake. 7. History of deep venous thrombosis in the past. RECOMMENDATION: From the cardiac standpoint, will continue supportive care. Awaiting for results of his biopsy. Unfortunately, the prognosis is guarded at this time. Depending on his progress, further recommendation will be made. MMODL / IJN: [id number] /
--- NOTE | 2019-12-25 08:49 | XR ---
EXAMINATION TYPE: XR chest 1V portable DATE OF EXAM: 12/25/2019 COMPARISON: Prior chest x-ray 12/24/[address] 12/22/2019 HISTORY: Abnormal chest x-ray, tube placement TECHNIQUE: Single frontal view of the chest is obtained. FINDINGS: Patient is rotated. Tracheostomy tube is overlying the tracheal air column. NG tube is pre sent, side-port is within the lower thoracic esophagus. The left hemidiaphragm is obscured, there is basilar density. Apical calcifications are present. There are overlying artifacts and cardiac leads. The spleen central venous catheter is stable and appropriate position. Heart is small and aorta is de nse. IMPRESSION: Possible left lower lobe atelectasis and associated effusion versus pneumonia. Apical pl eural calcifications, consider old granulomatous disease, asbestos related disease. There is underlyi ng emphysema.
--- NOTE | 2019-12-25 10:00 | P.PN ---
Subjective Progress Note Date: 12/25/19 On 12/25/2019 patient seen in follow-up in the intensive care unit, he is status post urgent tracheostomy with insertion of a #8 Shiley cuffed fenestrated tracheostomy tube, suspension microlaryngoscopy with biopsy of the left true vocal cord anterior commissure left laryngeal mass and right true vocal cord. Pathology report is pending, this morning he seen in the intensive care unit, his trach is connected to the ventilator, on assist-control mode of ventilation with a rate of 14, tidal volume of 400, FiO2 of 50% and PEEP of 8, this morning's blood gas was reviewed showing pO2 of 78, pCO2 of 39, and pH of 7.38, this was done and FiO2 of 40%. Patient remains sedated, on 50 mics per kilo per minute of depressive and, and maintenance IV fluids of 0.9 normal saline at a rate of 50 ML per hour, no vasoactive infusions, he is in sinus mechanism, slightly tachycardic, with a rate of 95-110 BPM, blood pressure stable, 132/58, O2 sat is 98%. This morning's chest x-ray was reviewed showing a left lower lobe atelectasis and associated effusion versus pneumonia, apical pleural calcification consider old granulomatous disease or asbestos related disease on a background of underlying emphysema. Today's labs have been reviewed, showing white blood cell count of 17.1, hemoglobin is 6.6 patient is receiving 1 unit of packed red blood cells this morning, serum sodium is improving, up to 128 on tod ay's labs, the rest of the electrolytes were within normal limits, and renal profile is stable with creatinine of 1.35. Antibiotic coverage is in the form of Zosyn, sputum culture showed moderate gram-negative bacilli, and a few budding yeast. Final cultures pending, patient has been afebrile Objective - Vital Signs Vital signs: Vital Signs Temp 98 F 12/25/19 07:40 Pulse 103 H 12/25/19 07:44 Resp 13 12/25/19 07:40 BP 122/52 12/25/19 07:40 Pulse Ox 93 L 12/25/19 07:40 Intake & Output 12/24/19 12/25/19 12/25/19 18:59 06:59 18:59 Intake Total 1790.279 0761.188 56 Output Total 550 1680 70 Balance 586.777 -653.812 -14 Weight 73.3 kg Intake: IV 454 72 6 Normal Saline Pressure 54 72 6 Bag Sodium Chloride 3%( 100 Hypertonic) 500 ml @ 20 mls/hr IV .Q24H [facility] Rx#: [id number] Intake, IV Titration 682.777 954.188 50 Amount Diltiazem 125 mg In 85.167 Sodium Chloride 0.9% 100 ml @ Per Protocol IV .Q0M [facility] Rx#:[id number] Piperacillin-Tazobactam 3 100 200 .375 gm In Sodium Chloride 0.9% 100 ml @ 25 mls/hr IVPB Q8H [facility] Rx#: [id number] Propofol 1,000 mg In 297.610 154.188 Empty Bag 1 bag @ Titrate IV .Q0M [facility] Rx#: [id number] Sodium Chloride 0.9% 1, 200 600 50 000 ml @ 50 mls/hr IV . Q20H [facility] Rx#:[id number] Blood Product 0 Rc Irr As1 Unit 0 [id number] Output: Urine 525 1680 70 Estimated Blood Loss 25 Other: Voiding Method Indwelling Catheter Indwelling Catheter ABP, PAP, CO, CI - Last Documented Arterial Blood Pressure 120/52 - Exam GENERAL EXAM: Sedated, 64-year-old white male, with a #8 Shiley cuffed fenestrated tracheostomy connected to the ventilator with before meals mode of ventilation comfortable in no apparent distress. HEAD: Normocephalic/atraumatic. EYES: Normal reaction of pupils, equal size. Conjunctiva pink, sclera white. NOSE: Clear with pink turbinates. THROAT: No erythema or exudates. NECK: No masses, no JVD, no thyroid enlargement, no adenopathy. CHEST: No chest wall deformity. Symmetrical expansion. LUNGS: Equal air entry with no crackles, wheeze, rhonchi or dullness. Diminished breath sounds at the bases CVS: Regular rate and rhythm, normal S1 and S2, no gallops, no murmurs, no rubs ABDOMEN: Soft, nontender. No hepatosplenomegaly, normal bowel sounds, no guarding or rigidity. EXTREMITIES: No clubbing, no edema, no cyanosis, 2+ pulses and upper and lower extremities. MUSCULOSKELETAL: Muscle strength and tone normal. SPINE: No scoliosis or deformity SKIN: Large left lateral chest hematoma has been outlined with a marker, with the edges feeding and judging by the outlying there has been no increase in the size CENTRAL NERVOUS SYSTEM: Sedated, moves extremities, does not open eyes to voice. No focal deficits, tone is normal in all 4 extremities. - Labs CBC & Chem 7: 12/25/19 04:00 12/25/19 04:00 Labs: Abnormal Lab Results - Last 24 Hours (Table) 12/24/19 12/24/19 12/24/19 Range/Units 09:50 12:01 14:05 WBC (3.8-10.6) k/uL RBC (4.30-5.90) m/uL Hgb (13.0-17.5) gm/dL Hct (39.0-53.0) % Neutrophils # (1.3-7.7) k/uL Lymphocytes # (1.0-4.8) k/uL APTT 21.0 L (22.0-30.0) sec ABG pO2 (83-108) mmHg Sodium 121 L (137-145) mmol/L Creatinine (0.66-1.25) mg/dL Glucose (74-99) mg/dL POC Glucose (mg/dL) 141 H (75-99) mg/dL Calcium (8.4-10.2) mg/dL AST (17-59) U/L Total Protein (6.3-8.2) g/dL Albumin (3.5-5.0) g/dL Crossmatch 12/24/19 12/24/19 12/24/19 Range/Units 15:50 20:20 20:20 WBC 18.8 H (3.8-10.6) k/uL RBC 2.15 L (4.30-5.90) m/uL Hgb 7.2 L (13.0-17.5) gm/dL Hct 21.1 L (39.0-53.0) % Neutrophils # 17.0 H (1.3-7.7) k/uL Lymphocytes # 0.6 L (1.0-4.8) k/uL APTT (22.0-30.0) sec ABG pO2 (83-108) mmHg Sodium 122 L 125 L (137-145) mmol/L Creatinine (0.66-1.25) mg/dL Glucose (74-99) mg/dL POC Glucose (mg/dL) (75-99) mg/dL Calcium (8.4-10.2) mg/dL AST (17-59) U/L Total Protein (6.3-8.2) g/dL Albumin (3.5-5.0) g/dL Crossmatch 12/24/19 12/25/19 12/25/19 Range/Units 23:29 00:35 04:00 WBC 17.1 H (3.8-10.6) k/uL RBC 2.00 L (4.30-5.90) m/uL Hgb 6.6 L* (13.0-17.5) gm/dL Hct 19.6 L* (39.0-53.0) % Neutrophils # (1.3-7.7) k/uL Lymphocytes # (1.0-4.8) k/uL APTT (22.0-30.0) sec ABG pO2 (83-108) mmHg Sodium 125 L (137-145) mmol/L Creatinine (0.66-1.25) mg/dL Glucose (74-99) mg/dL POC Glucose (mg/dL) 146 H (75-99) mg/dL Calcium (8.4-10.2) mg/dL AST (17-59) U/L Total Protein (6.3-8.2) g/dL Albumin (3.5-5.0) g/dL Crossmatch 12/25/19 12/25/19 12/25/19 Range/Units 04:00 04:05 05:28 WBC (3.8-10.6) k/uL RBC (4.30-5.90) m/uL Hgb (13.0-17.5) gm/dL Hct (39.0-53.0) % Neutrophils # (1.3-7.7) k/uL Lymphocytes # (1.0-4.8) k/uL APTT (22.0-30.0) sec ABG pO2 78 L (83-108) mmHg Sodium 128 L (137-145) mmol/L Creatinine 1.35 H (0.66-1.25) mg/dL Glucose 105 H (74-99) mg/dL POC Glucose (mg/dL) (75-99) mg/dL Calcium 7.7 L (8.4-10.2) mg/dL AST 83 H (17-59) U/L Total Protein 4.4 L (6.3-8.2) g/dL Albumin 2.2 L (3.5-5.0) g/dL Crossmatch See Detail 12/25/19 Range/Units 06:00 WBC (3.8-10.6) k/uL RBC (4.30-5.90) m/uL Hgb (13.0-17.5) gm/dL Hct (39.0-53.0) % Neutrophils # (1.3-7.7) k/uL Lymphocytes # (1.0-4.8) k/uL APTT (22.0-30.0) sec ABG pO2 (83-108) mmHg Sodium (137-145) mmol/L Creatinine (0.66-1.25) mg/dL Glucose (74-99) mg/dL POC Glucose (mg/dL) 129 H (75-99) mg/dL Calcium (8.4-10.2) mg/dL AST (17-59) U/L Total Protein (6.3-8.2) g/dL Albumin (3.5-5.0) g/dL Crossmatch Microbiology - Last 24 Hours (Table) 12/23/19 22:37 Gram Stain - Preliminary Sputum Sputum Culture - Preliminary Assessment and Plan Plan: Assessment: 1 acute COPD exacerbation with secondary shortness of breath 2 laryngeal mass, 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 Status post insertion of a #8 cuffed fenestrated Shiley tracheostomy tube and laryngeal mass biopsies 3 left lower lobe pneumonia/effusion 4 chest hematoma currently inactive and stable. Hematoma stable, but today's hemoglobin is down to 6.6 and patient has been transfused with a unit of packed red blood cells 5 Anemia with a drop in the hemoglobin probably due to development of a left chest hematoma which is currently stable. Hemoglobin is at 6.6 6 pulmonary embolism which is questionable.. There is a questionable filling defect in the subsegmental right lower lobe pulmonary artery branch and the patient is currently on IV heparin. He has previous history of DVT in 2018 and he wasn't taking any form of anticoagulation. 8 hyponatremia improving and the sodium level is up to 121 and I took the patient off the hypertonic saline solution. 9 history of DVT of the right lower extremity 2017 10 smoker 11 alcoholism 12 questionable liver cirrhosis based on CAT scan findings 13 abnormal troponin without any significant EKG changes or chest pain 14 paroxysmal atrial fibrillation current rhythm is sinus and the patient was taken off the Cardizem drip Plan: Patient is receiving 1 unit of packed red blood cells for hemoglobin of 6.6, remains hemodynamically stable, left chest hematoma seems to be stable. Today's chest x-ray has been reviewed showing left lower lobe atelectasis. Patient is covered with empiric AmBisome the form of Zosyn. He has been afebrile, blood gases were reviewed, we'll drop the PEEP down to 5, and later on we will drop the FiO2 down to 40. Proceed with spontaneous awakening and spontaneous br eathing trials, and will assess patient's ability to go on the trach collar today, continue current antibiotics, anticoagulation remains on hold in view of hematoma and blood loss anemia. Monitor for signs of delirium tremens, breathing treatments around the clock, lung sounds are clear, diminished at the bases, no rhonchi, no wheezing, no significant sputum production. I performed a history & physical examination of the patient and discussed their management with my nurse practitioner, Marifer Hernández. I reviewed the nurse practitioner's note and agree with the documented findings and plan of care. Lung sounds are positive for diminished breath sounds at the bases The findings and the impression was discussed with the patient. I attest to the documentation by the nurse practitioner. Time with Patient: Greater than 30
[2019-12-25] MEDS: METOPROLOL TARTRATE 25 MG TAB PO SCH ×2 (10:18→20:45)
[2019-12-25] MEDS: NICOTINE 14MG/24HR PATCH TRANSDERM SCH (10:18)
[2019-12-25] MEDS: cloNIDine HCL 0.2 MG TAB PO SCH ×2 (10:18→20:45)
[2019-12-25] MEDS: CHLORHEXIDINE GLUCONATE 15 ML CUP MUCOUS MEM SCH ×2 (10:18→20:45)
[2019-12-25] MEDS: ATORVASTATIN 20 MG TAB PO SCH (10:18)
[2019-12-25] MEDS: CHOLECALCIFEROL 1,000 UNIT TAB PO SCH ×2 (10:18→20:45)
[2019-12-25] MEDS: POTASSIUM CHLORIDE ER 20 MEQ TAB.ER PO SCH (10:21)
[2019-12-25] MEDS: PANTOPRAZOLE 40 MG/10 ML VIAL IVP SCH ×2 (10:29→20:45)
[2019-12-25 12:11] LABS: Glucose,Whole Blood 128 mg/dL (75-99)
[2019-12-25] MEDS: THIAMINE 100 MG TAB PO SCH (13:34)
[2019-12-25] MEDS: FOLIC ACID 1 MG TAB PO SCH (13:35)
[2019-12-25] MEDS: MULTIVITAMINS, THERA 1 EACH TAB PO SCH (13:35)
[2019-12-25 13:43] LABS: HCT 22.7 % (39.0-53.0); HGB 7.9 gm/dL (13.0-17.5); MCH 33.6 pg (25.0-35.0); MCHC 34.9 g/dL (31.0-37.0); MCV 96.3 fL (80.0-100.0); Mean Platelet Volume 8.2; Platelet Count 164 k/uL (150-450); RBC 2.36 m/uL (4.30-5.90); RDW 13.5 % (11.5-15.5); WBC 20.2 k/uL (3.8-10.6)
[2019-12-25] MEDS: NOREPINEPHRINE 32 MG in SODIUM CHLORIDE 0.9% 218 ML IV SCH (14:31)
--- NOTE | 2019-12-25 15:44 | PN ---
PROGRESS NOTE Patient is seen for follow up for hyponatremia which appears to be hypovolemic. The patient was initially maintained on 3% saline; however, his sodium had improved to 121. He was switched over to normal saline yesterday and his serum sodium continues to improve. He is maintained on tube feedings which he is tolerating well. EXAMINATION: On examination this morning, the patient is on the vent. He is sedated. Blood pressure is 122/52, heart rate 80 per minute, he is afebrile. Examination of the heart: S1, S2. Examination of the lungs: Bilateral breath sounds are heard. Abdomen is soft, nontender. Examination of lower extremities shows no significant edema. BAR USEFUL OR BUSSER exam cannot be performed. LAB: Show sodium of 128, potassium 4.0, BUN 18, creatinine 1.35. ASSESSMENT: 1. Hypovolemic, hyponatremia improving with normal saline. 2. 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 3. Left lower lobe pneumonia. 4. Anemia with significant drop in hemoglobin. The patient has a left chest hematoma which is currently stable. PLAN: Continue with normal saline. Repeat laboratories in a.m. MMODL / IJN: [id number] /
[2019-12-25 18:52] LABS: Glucose,Whole Blood 138 mg/dL (75-99)
[2019-12-25 23:28] LABS: Glucose,Whole Blood 131 mg/dL (75-99)
--- NOTE | 2019-12-25 23:31 | PN ---
PROGRESS NOTE DATE OF SERVICE: 12/25/2019 This 64-year-old gentleman who was admitted with acute respiratory failure also had significant mass lesion in the vocal cord and as well as laryngeal area. The patient underwent bronchoscopy. Patient on mechanical ventilation. Dr. Lawrence also performed tracheostomy at this time. Biopsies are pending at this time. The patient is mechanically sedated in ICU. Patient has anemia, being transfused at this time. The patient also has significant hematoma and heparin was initiated. PAST MEDICAL HISTORY: Reviewed. REVIEW OF SYSTEMS: Could not be taken because the patient mechanically sedated. CURRENT MEDICATIONS ARE: 1. Ventolin 2.5 q.4 p.r.n. 2. Lipitor 20 mg. 3. Pulmicort 1 mg b.i.d. 4. Peridex. 5. Folic acid. 6. Catapres 0.2 P b.i.d. 7. Benadryl 25 mg p.o. daily. 8. Folic acid 1 mg p.o. 9. Perforomist. 10.NovoLog. 11.Ativan 0.5 mg q.8 p.r.n. 12.Solu-Medrol 60 IV q.6h. 13.Lopressor 25 mg p.o. b.i.d. 14.Morphine. 15.Multivitamins. 16.Narcan 0.2 q.2 p.r.n. 17.Habitrol 14 daily. 18.Zofran. 19.Protonix 40 mg IV b.i.d. 20.Propofol. 21.Vitamin B1 100 mg. 22.Ultram p.r.n. PHYSICAL EXAM: Pulse is 81, blood pressure 130/50, respirations 16, temp is normal, pulse ox 98% on 40% FiO2. HEENT: Conjunctivae normal. Oral mucosa moist. NECK: No jugular venous distention. No lymph node enlargement. CARDIOVASCULAR: S1, S2. RESPIRATORY: Diminished breath sounds at the bases. Bilateral scattered rhonchi and crackles. ABDOMEN: Soft, nontender. LEGS: No edema, no swelling. NERVOUS SYSTEM: The patient mechanically sedated. LABS: WBC 20.2, hemoglobin 7.9. ASSESSMENT: 1. Shortness of breath, possibly chronic obstructive pulmonary disease acute exacerbation with acute purulent tracheobronchitis with acute hypoxic respiratory failure on mechanical ventilation, present on admission. 2. 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 3. Acute pulmonary embolism on the right lobe. 4. Significant extensive hematoma of the left side. 5. Anemia, blood-loss anemia, acute. 6. Atrial fibrillation with fast ventricular rate. 7. Off anticoagulants currently. 8. Severe hyponatremia, possibly SIADH status post 3% saline. 9. History of continued ongoing nicotine dependence. 10.Troponin 0.093, indeterminate. 11.Hypotension. 12.Hyperlipidemia. 13.Chronic liver disease. 14.History of gastroesophageal reflux disease. 15.History of nicotine dependence. 16.History of anxiety. 17.History of ETOH. 18.Hypokalemia. 19.FULL CODE. RECOMMENDATIONS AND DISCUSSION: In this 64-year-old gentleman who presented with multiple complex medical issues, we will monitor the patient closely, continue the current management and symptomatic treatment. Otherwise, at this time I recommend to transfuse at least 1 unit transfusion, monitor hemoglobin closely and continue the antibiotics. Await biopsy report. Continue with mechanical ventilation. Creatinine is 1.35 at this time. Prognosis guarded because of multiple complex medical issues. Will closely follow with Dr. Tabares. ENT input appreciated. Further recommendations to follow. MMODL / IJN: [id number] /
[2019-12-26] MEDS: PROPOFOL 1,000 MG in EMPTY BAG 1 BAG IV SCH ×5 (00:19→21:56)
[2019-12-26] MEDS: PIPERACILLIN-TAZOBACTAM 3.375 GM in SODIUM CHLORIDE 0.9% 100 ML IVPB SCH ×3 (01:54→18:18)
[2019-12-26] MEDS: ALBUTEROL NEBULIZED 2.5 MG/3 ML INHALATION PRN ×4 (03:38→20:15)
[2019-12-26] MEDS: SODIUM CHLORIDE 0.9% 1,000 ML IV SCH ×2 (03:47→23:13)
--- NOTE | 2019-12-26 04:53 | PN ---
PROGRESS NOTE DATE OF PROGRESS NOTE: 12/25/2019 SUBJECTIVE: Vital signs stable. The patient is currently on assisted ventilation. He is also currently sedated. OBJECTIVE: Examination of the tracheostomy area reveals that the tracheostomy tube is intact, patent and clean. A previously noted leakage of air around the tracheostomy tube has apparently sealed. The stay sutures that are holding a tracheostomy tube in place are intact. ASSESSMENT: Status post urgent tracheostomy with insertion of a #8 cuffed Shiley fenestrated tube PLAN: I will continue to follow the patient on a daily basis. It is my understanding at some point he will be taken off the assisted ventilation. In addition to this the nursing staff tells me that they will slowly begin to reduce his sedation. It usually takes about 4 to 7 days, depending upon the patient's state of nutrition, for a well- formed tracheostomy tract to develop. Therefore, I highly recommend leaving the sutures in place until 12/30/2019. I see no reason to remove them before then unless they develop some type of infection. I will follow the patient on a daily basis and on 12/30/2019, I will personally remove the 2 stay sutures that are holding the tracheostomy tube in place. MMODL / IJN: [id number] / JESSEE
[2019-12-26 05:16] LABS: Basophils # (A) 0.1 k/uL (0-0.2); Basophils % (A) 0 %; Eosinophils % (A) 0 %; HCT 23.4 % (39.0-53.0); Lymphocytes # (A) 0.5 k/uL (1.0-4.8); Lymphocytes % (A) 3 %; MCH 33.2 pg (25.0-35.0); MCHC 34.2 g/dL (31.0-37.0); MCV 96.9 fL (80.0-100.0); Mean Platelet Volume 8.5; Monocytes % (A) 5 %; Neutrophils # (A) 18.6 k/uL (1.3-7.7); Neutrophils % (A) 91 %; Platelet Count 196 k/uL (150-450); RBC 2.41 m/uL (4.30-5.90); RDW 14.3 % (11.5-15.5); WBC 20.4 k/uL (3.8-10.6)
[2019-12-26 05:19] LABS: ABG Base Excess -1.8 mmol/L; ABG HCO3 23 mmol/L (21-25); ABG Oxygen Saturation 97.2 % (94-97); ABG PCO2 37 mmHg (35-45); ABG PO2 90 mmHg (83-108); ABG TCO2 24 mmol/L (19-24); Allen Test Performed? Yes
[2019-12-26 05:24] LABS: Albumin 2.4 g/dL (3.5-5.0); Calcium 7.8 mg/dL (8.4-10.2); Potassium 4.1 mmol/L (3.5-5.1); Total Bilirubin 0.8 mg/dL (0.2-1.3); Total Protein 4.7 g/dL (6.3-8.2)
[2019-12-26 05:40] LABS: Glucose,Whole Blood 155 mg/dL (75-99)
[2019-12-26] MEDS: INSULIN ASPART (NovoLOG) 100 UNIT/ML VIAL SQ SCH ×4 (05:41→23:13)
[2019-12-26] MEDS: methylPREDNISolone SOD SUCCI 125 MG/2 ML VIAL IV SCH ×2 (05:42→11:24)
[2019-12-26] MEDS: FORMOTEROL FUMARATE 20 MCG/2 ML NEBU INHALATION SCH ×2 (07:16→20:15)
[2019-12-26] MEDS: BUDESONIDE 1 MG/2 ML NEBU INHALATION SCH ×2 (07:16→20:15)
--- NOTE | 2019-12-26 07:48 | XR ---
EXAMINATION TYPE: XR chest 1V portable DATE OF EXAM: 12/26/2019 COMPARISON: Prior chest x-ray 12/25/2019 HISTORY: Tube placement TECHNIQUE: Single frontal view of the chest is obtained. FINDINGS: NG tube is stable, distal tip is overlying the stomach, side-port is within the distal tho racic esophagus. Tracheostomy tube is overlying the tracheal air column. Apical pleural scarring is a gain noted. There is opacity at the left lung base obscuring the hemidiaphragm. Heart size is stable. No evident pneumothorax. Prominent lung volumes. IMPRESSION: Similar to prior exam, possible left lower lobe atelectasis versus pneumonia and associa rishi effusion. Emphysema.
[2019-12-26] MEDS: METOPROLOL TARTRATE 50 MG TAB PO SCH ×2 (08:56→20:00)
[2019-12-26] MEDS: CHLORHEXIDINE GLUCONATE 15 ML CUP MUCOUS MEM SCH ×2 (08:56→20:00)
[2019-12-26] MEDS: PANTOPRAZOLE 40 MG/10 ML VIAL IVP SCH ×2 (08:56→20:00)
[2019-12-26] MEDS: MULTIVITAMINS, THERA 1 EACH TAB PO SCH (08:57)
[2019-12-26] MEDS: FOLIC ACID 1 MG TAB PO SCH (08:57)
[2019-12-26] MEDS: CHOLECALCIFEROL 1,000 UNIT TAB PO SCH ×2 (08:57→20:00)
[2019-12-26] MEDS: THIAMINE 100 MG TAB PO SCH (08:57)
[2019-12-26] MEDS: cloNIDine HCL 0.1 MG TAB PO SCH ×2 (08:57→20:00)
[2019-12-26] MEDS: ATORVASTATIN 20 MG TAB PO SCH (08:57)
[2019-12-26] MEDS: NICOTINE 14MG/24HR PATCH TRANSDERM SCH (08:58)
[2019-12-26] MEDS: ASPIRIN 81 MG PO SCH (08:58)
[2019-12-26] MEDS: POTASSIUM CHLORIDE ER 20 MEQ TAB.ER PO SCH (09:05)
--- NOTE | 2019-12-26 10:25 | PN ---
PROGRESS NOTE Mr. Laurent is a 64-year-old male who presented with progressive dyspnea and was found to have a vocal cord mass compressing on the trachea requiring a tracheostomy. He remains intubated. He continued to be in sinus mechanism. There is no further episode of atrial fibrillation. He has history of chronic obstructive lung disease. His mild troponin elevation most likely related to the hypoxemia and representing a type 2 event. The patient had chest wall hematoma and he is off anticoagulation. The biopsy of his vocal cord is pending. He continues to be on atorvastatin 20 mg daily, clonidine 0.2 mg twice a day, insulin, metoprolol tartrate 25 mg twice a day. PHYSICAL EXAMINATION: Blood pressure 111/60 with the heart rate in the 70s. LUNGS: Clear anteriorly. HEART: Regular rate and rhythm. S1, S2. No S3. No rub appreciated. ABDOMEN: Soft. Positive bowel sounds. No organomegaly. EXTREMITIES: No edema. Chest x-ray shows no acute infiltrate. IMPRESSION: 1. Vocal cord mass, biopsy results pending. 2. Exacerbation of chronic obstructive pulmonary disease. 3. Troponin elevation most likely representing a type 2 event related to the hypoxemia. 4. Anemia. 5. Hyponatremia. 6. Prior history of alcoholism. RECOMMENDATION: From the cardiac standpoint, I will decrease the dose of his clonidine and increase the dose of his beta magdalena. Continue the rest of his medical regimen. Follow his blood pressure and renal function and depending on that, the decision will be made regarding adding an MICHELLE inhibitor. We will await the results of the biopsy and depending on that, further recommendation will be made. MMODL / IJN: [id number] /
[2019-12-26 11:21] LABS: Glucose,Whole Blood 171 mg/dL (75-99)
--- NOTE | 2019-12-26 11:53 | P.PN ---
Subjective Progress Note Date: 12/26/19 On 12/26/2019, the patient is close tracheostomy tube insertion. Is postop day #2. Sedation has been weaned off and is gradually waking up from sedation. Meanwhile, check his ventilator parameters. The patient the patient earlier was an assist-control mode at the rate of 14 with a tidal volume of 400 and FiO2 of 40% and PEEP of 5. Blood gases from today showed a pH of 7.4 with a pCO2 of 37 and pO2 of 90. Airway pressures are not elevated. Chest x-ray shows no acute abnormalities. I switched him to a pressure support of 5 and a PEEP of 5. He is able to generate a tidal volume more than 600 and his minute ventilation is currently at 5.6 L. Distal recovering from his sedation. He is hemodynamically stable. He is receiving enteral feeding for nutritional support and is currently on vital high protein at the rate of 40 mL an hour. No other issues for now. No fever. He remains on empiric antibiotic coverage with IV Zosyn. Biopsy of the vocal cords and pending for now. Note that the sputum came back positive for Serratia. The hematoma along the left chest is stable and there is no interval worsening. Hemoglobin currently is 8 yesterday and the patient is post 1 unit of packed RBC transfusion for hemoglobin of 6.6 and he responded very nicely. No other issues for now. Objective - Vital Signs Vital signs: Vital Signs Temp 97.9 F 12/26/19 08:00 Pulse 68 12/26/19 11:29 Resp 15 12/26/19 11:00 BP 108/58 12/26/19 11:00 Pulse Ox 100 12/26/19 11:00 Intake & Output 12/25/19 12/26/19 12/26/19 18:59 06:59 18:59 Intake Total 1117.923 744.609 421.7 Output Total 817 505 230 Balance 300.923 239.609 191.7 Weight 73.3 kg 72.5 kg Intake: IV 63 45 203 Normal Saline Pressure 63 45 3 Bag Sodium Chloride 0.9% 1, 200 000 ml @ 50 mls/hr IV . Q20H [facility] Rx#:[id number] Intake, IV Titration 554.923 289.609 8.7 Amount Piperacillin-Tazobactam 3 100 .375 gm In Sodium Chloride 0.9% 100 ml @ 25 mls/hr IVPB Q8H [facility] Rx#: [id number] Propofol 1,000 mg In 154.923 289.609 8.7 Empty Bag 1 bag @ Titrate IV .Q0M [facility] Rx#: [id number] Sodium Chloride 0.9% 1, 300 000 ml @ 50 mls/hr IV . Q20H [facility] Rx#:[id number] Oral 60 Tube Feeding 20 320 180 Blood Product 310 Rc Irr As1 Unit 310 [id number] Other 110 90 30 Rc Irr As1 Unit 50 [id number] Output: Urine 817 505 230 Other: Voiding Method Indwelling Catheter Indwelling Catheter Indwelling Catheter ABP, PAP, CO, CI - Last Documented Arterial Blood Pressure 141/66 - Exam Gen. appearance the patient is calm comfortable the patient is arousing and the patient is a tracheostomy to #8 Head exam was generally normal. There was no scleral icterus or corneal arcus. Mucous membranes were moist. Neck was supple and without jugular venous distension, thyromegaly, or carotid bruits. Carotids were easily palpable bilaterally. There was no adenopathy. There is some questionable noisy breathing during inspiration and guarded and neck area, and this obviously raises the concern for a stridor. Lungs sounds are diminished and there is diffuse expiratory wheezes throughout the lung his bilaterally along with prolongation of exhalation phase of breathing. Left chest hematoma and the hematomas extending in the lateral aspect of the left chest extending posteriorly and inferiorly. Please refer to the CAT scan findings. The CAT scan showed a stable hematoma over the left anterior chest area extending laterally. Cardiac exam revealed the PMI to be normally situated and sized. The rhythm was regular and no extrasystoles were noted during several minutes of auscultation. The first and second heart sounds were normal and physiologic splitting of the second heart sound was noted. There were no murmurs, rubs, clicks, or gallops. Abdominal exam revealed normal bowel sounds. The abdomen was soft, non-tender, and without masses, organomegaly, or appreciable enlargement of the abdominal aorta. Examination of the extremities revealed easily palpable radial, femoral and pedal pulses. There was no cyanosis, clubbing or edema. Examination of the skin revealed no evidence of significant rashes, suspicious appearing nevi or other concerning lesions. Neurologically the patient is sedated and he is arousable and he was taken off sedation this morning. He is in the process of breaking up from sedation. - Labs CBC & Chem 7: 12/26/19 05:05 12/26/19 05:05 Labs: Abnormal Lab Results - Last 24 Hours (Table) 12/25/19 12/25/19 12/25/19 Range/Units 05:28 12:10 13:14 WBC 20.2 H (3.8-10.6) k/uL RBC 2.36 L (4.30-5.90) m/uL Hgb 7.9 L (13.0-17.5) gm/dL Hct 22.7 L (39.0-53.0) % Neutrophils # (1.3-7.7) k/uL Lymphocytes # (1.0-4.8) k/uL ABG O2 Saturation (94-97) % Sodium (137-145) mmol/L BUN (9-20) mg/dL Creatinine (0.66-1.25) mg/dL Glucose (74-99) mg/dL POC Glucose (mg/dL) 128 H (75-99) mg/dL Calcium (8.4-10.2) mg/dL AST (17-59) U/L Total Protein (6.3-8.2) g/dL Albumin (3.5-5.0) g/dL Crossmatch See Detail 12/25/19 12/25/19 12/26/19 Range/Units 18:51 23:27 05:05 WBC 20.4 H (3.8-10.6) k/uL RBC 2.41 L (4.30-5.90) m/uL Hgb 8.0 L (13.0-17.5) gm/dL Hct 23.4 L (39.0-53.0) % Neutrophils # 18.6 H (1.3-7.7) k/uL Lymphocytes # 0.5 L (1.0-4.8) k/uL ABG O2 Saturation (94-97) % Sodium (137-145) mmol/L BUN (9-20) mg/dL Creatinine (0.66-1.25) mg/dL Glucose (74-99) mg/dL POC Glucose (mg/dL) 138 H 131 H (75-99) mg/dL Calcium (8.4-10.2) mg/dL AST (17-59) U/L Total Protein (6.3-8.2) g/dL Albumin (3.5-5.0) g/dL Crossmatch 12/26/19 12/26/19 12/26/19 Range/Units 05:05 05:15 05:37 WBC (3.8-10.6) k/uL RBC (4.30-5.90) m/uL Hgb (13.0-17.5) gm/dL Hct (39.0-53.0) % Neutrophils # (1.3-7.7) k/uL Lymphocytes # (1.0-4.8) k/uL ABG O2 Saturation 97.2 H (94-97) % Sodium 133 L (137-145) mmol/L BUN 21 H (9-20) mg/dL Creatinine 1.30 H (0.66-1.25) mg/dL Glucose 137 H (74-99) mg/dL POC Glucose (mg/dL) 155 H (75-99) mg/dL Calcium 7.8 L (8.4-10.2) mg/dL AST 96 H (17-59) U/L Total Protein 4.7 L (6.3-8.2) g/dL Albumin 2.4 L (3.5-5.0) g/dL Crossmatch 12/26/19 Range/Units 11:20 WBC (3.8-10.6) k/uL RBC (4.30-5.90) m/uL Hgb (13.0-17.5) gm/dL Hct (39.0-53.0) % Neutrophils # (1.3-7.7) k/uL Lymphocytes # (1.0-4.8) k/uL ABG O2 Saturation (94-97) % Sodium (137-145) mmol/L BUN (9-20) mg/dL Creatinine (0.66-1.25) mg/dL Glucose (74-99) mg/dL POC Glucose (mg/dL) 171 H (75-99) mg/dL Calcium (8.4-10.2) mg/dL AST (17-59) U/L Total Protein (6.3-8.2) g/dL Albumin (3.5-5.0) g/dL Crossmatch Microbiology - Last 24 Hours (Table) 12/23/19 22:37 Gram Stain - Final Sputum Sputum Culture - Final Serratia marcescens Yodit albicans Assessment and Plan Plan: 1 acute respiratory failure due to upper airway obstruction secondary to laryngeal mass and the patient also was an acute COPD exacerbation. The patient is post tracheostomy tube insertion and the patient has a #[address] Currently switched to a CPAP. 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 The patient is posterior chest tube insertion and the final pathology still pending. 3 left lower lobe pneumonia/effusion with sputum showing sedation the patient is currently on IV Zosyn 4 chest hematoma currently inactive and stable. Hematoma stable and that hemoglobin is stable at 8.0 5 Anemia with a drop in the hemoglobin probably due to development of a left chest hematoma which is currently stable. Hemoglobin is at 8.0 6 pulmonary embolism which is questionable.. There is a questionable filling defect in the subsegmental right lower lobe pulmonary artery branch and the patient is currently on IV heparin. He has previous history of DVT in 2018 and he wasn't taking any form of anticoagulation. 8 hyponatremia improving , sodium level is up to 133 9 history of DVT of the right lower extremity 2018 10 smoker 11 alcoholism 12 questionable liver cirrhosis based on CAT scan findings 13 abnormal troponin without any significant EKG changes or chest pain 14 paroxysmal atrial fibrillation current rhythm is sinus and the patient was taken off the Cardizem drip him a current rhythm is sinus Plan The patient on CPAP with a pressure support of 5 and a PEEP of 5 Discontinue sedation Wean down the IV Solu-Medrol to 40 mg every 12 hours Continue IV Zosyn Continue enteral nutrition for nutritional support IV fluids in the form of normal saline at the rate of 50 mL an hour and his sodium level is normalized Awaiting final pathology from vocal cord biopsy We'll continue to follow. No anticoagulation for now Condition is critical. I discussed the findings with the . We'll continue to follow up this patient in the ICU closely. . evaluation was done and more than 30 minutes Time with Patient: Greater than 30
[2019-12-26 11:58] LABS: Glucose,Whole Blood 154 mg/dL (75-99)
--- NOTE | 2019-12-26 15:16 | PN ---
PROGRESS NOTE Patient is seen for followup for hyponatremia. He is maintained on saline at 50 mL an hour. Serum sodium continues to improve. It is at 1:33 now. PHYSICAL EXAMINATION: On examination, patient is currently on the vent, blood pressure this morning was 108/58. His sedation is being held. The patient has good urine output. Examination of the heart S1, S2. Examination of the lungs, bilateral breath sounds are heard. Abdomen is soft, nontender. Examination of the lower extremities shows no significant edema. [employer] exam cannot be performed. LABS: Show sodium of 133, potassium 4.1, serum creatinine 1.3 mg/dL. ASSESSMENT: 1. Hypovolemic hyponatremia, improving with normal saline. Continue the IV fluid saline at 50 mL an hour. 2. Laryngeal mass with airway obstruction, status post tracheostomy. 3. Left lower lobe pneumonia, maintained on antibiotics. 4. Chest hematoma, stable. 5. History of deep venous thrombosis with possible pulmonary embolism, maintained on anticoagulation. PLAN: Continue with normal saline for now. MMODL / IJN: [id number] /
[2019-12-26] MEDS: NOREPINEPHRINE 32 MG in SODIUM CHLORIDE 0.9% 218 ML IV SCH (15:32)
[2019-12-26] MEDS: MORPHINE SULFATE 2 MG/ML SYRINGE IVP PRN ×2 (15:56→22:38)
[2019-12-26] MEDS ORDERED: METOPROLOL TARTRATE 5 MG/5 ML VIAL IVP ONE ×2 (16:44→16:46)
[2019-12-26 18:11] LABS: Glucose,Whole Blood 158 mg/dL (75-99)
[2019-12-26] MEDS: methylPREDNISolone SOD SUCCI 40 MG/ML 1 ML VIAL IV SCH (20:00)
--- NOTE | 2019-12-26 20:50 | PN ---
PROGRESS NOTE DATE OF SERVICE: 12/26/2019 This 64-year-old gentleman who was admitted with shortness of breath with COPD, acute exacerbation, acute purulent tracheobronchitis, acute hypoxic respiratory failure, is being closely monitored at this time. The patient had tracheostomy. The weaning attempts are done by Dr. Tabares. 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 Multiple consultants are following the patient closely. The patient is on tube feeds also. Past medical history reviewed. Review of systems could not be taken; the patient is mechanically ventilated and sedated. CURRENT MEDICATIONS: Reviewed. They include: 1. Ventolin. 2. Aspirin. 3. Lipitor. 4. Pulmicort. 5. Peridex. 6. Vitamin D3. 7. Catapres. 8. Benadryl. 9. Folic acid. 10.Perforomist. 11.Ativan. 12.Solu-Medrol. 13.Lopressor. 14.Multivitamins. 15.Narcan. 16.Habitrol. 17.Protonix. 18.Zosyn. 19.Propofol. 20.Thiamine. 21.Ultram. PHYSICAL EXAMINATION: Patient is mechanically ventilated and sedated. Pulse 72, blood pressure 100/54, respiration 20, temperature is normal, pulse ox 97% on 40% FiO2. The mechanical ventilation settings are noted. HEENT: Conjunctivae normal. Oral mucosa moist. NECK: Tracheostomy. CARDIOVASCULAR SYSTEM: S1, S2 muffled. No S3. No S4. RESPIRATORY SYSTEM: Breath sounds diminished at the bases. Bilateral scattered rhonchi and crackles. ABDOMEN: Soft, non-tender. LEGS: No edema. No swelling. NERVOUS SYSTEM: The patient is unresponsive. LABS: Accu-Cheks 154, 158. ABGs noted. Otherwise WBC 20.5, hemoglobin is 8. Creatinine is 1.3 and sodium is 133, which has improved significantly. ASSESSMENT: 1. Shortness of breath, possibly chronic obstructive pulmonary disease, acute exacerbation, as well as acute purulent tracheobronchitis with acute hypoxic respiratory failure, on mechanical ventilation, present on admission. 2. Upper airway obstruction secondary to possibly vocal cord and laryngeal tumor with invasive moderately differentiated squamous cell carcinoma, status post tracheostomy and biopsy causing upper airway obstruction. 3. Acute pulmonary embolism on the right side. 4. Extensive significant hematoma on the left side. 5. Anemia; blood loss anemia secondary to hematoma. 6. Atrial fibrillation with a fast ventricular rate. 7. Off anticoagulation currently. 8. Severe hyponatremia, possible syndrome of inappropriate antidiuretic hormone, status post 3% saline, improving. 9. Continued ongoing nicotine dependence. 10.Troponin 0.093, indeterminate. 11.Hypertension. 12.Hyperlipidemia. 13.Chronic liver disease. 14.History of gastroesophageal reflux disease. 15.History of nicotine dependence. 16.History of anxiety. 17.Next history of ethanol. 18.Hypokalemia. 19.FULL CODE. RECOMMENDATIONS AND DISCUSSION: I recommend to continue current medications, continue with the monitoring, symptomatic treatment. Monitor closely. Repeat labs. Continue mechanical ventilation. Continue with IV steroids. Continue with bronchodilators. Cautious IV fluids. Guarded prognosis because of multiple complex medical issues. Further recommendations to follow. MMODL / IJN: [id number] /
[2019-12-26 23:12] LABS: Glucose,Whole Blood 172 mg/dL (75-99)
[2019-12-27] MEDS: PIPERACILLIN-TAZOBACTAM 3.375 GM in SODIUM CHLORIDE 0.9% 100 ML IVPB SCH ×3 (01:32→18:47)
[2019-12-27] MEDS: PROPOFOL 1,000 MG in EMPTY BAG 1 BAG IV SCH ×2 (01:59→06:09)
--- NOTE | 2019-12-27 04:48 | PN ---
PROGRESS NOTE DATE OF PROGRESS NOTE: 12/26/2019. SUBJECTIVE: Vital signs are stable. The patient is semi alert. He is gradually being weaned off of the ventilation machine and his sedation has been stopped. OBJECTIVE: Examination of the tracheostomy site reveals that it appears to be free of any infection, drainage, or leakage. The tracheostomy tube appears to be patent and clean at this time. The stay sutures are intact. ASSESSMENT: Status post urgent tracheostomy with insertion of a #8 Shiley cuffed fenestrated tube. PLAN: The patient is doing well. I will continue to follow this patient on a daily basis and as I stated before on 12/30/2019, I will plan to remove the 2 stay sutures that are helping to hold the tracheostomy tube in place. MMODL / ALLEYN: [id number] / MTDD
[2019-12-27 05:26] LABS: ABG Base Excess -2.1 mmol/L; ABG HCO3 23 mmol/L (21-25); ABG Oxygen Saturation 98.2 % (94-97); ABG PCO2 41 mmHg (35-45); ABG PH 7.36 (7.35-7.45); ABG PO2 106 mmHg (83-108); ABG TCO2 25 mmol/L (19-24); Allen Test Performed? Yes
[2019-12-27 05:29] LABS: Glucose,Whole Blood 165 mg/dL (75-99)
[2019-12-27] MEDS: MORPHINE SULFATE 2 MG/ML SYRINGE IVP PRN ×6 (05:42→22:23)
[2019-12-27] MEDS: INSULIN ASPART (NovoLOG) 100 UNIT/ML VIAL SQ SCH ×3 (05:46→18:47)
[2019-12-27 06:21] LABS: Calcium 7.9 mg/dL (8.4-10.2); Potassium 4.5 mmol/L (3.5-5.1)
[2019-12-27 06:25] LABS: Basophils # (A) 0.1 k/uL (0-0.2); Basophils % (A) 0 %; Eosinophils # (A) 0.2 k/uL (0-0.7); Eosinophils % (A) 1 %; HCT 22.4 % (39.0-53.0); HGB 7.4 gm/dL (13.0-17.5); Lymphocytes # (A) 0.9 k/uL (1.0-4.8); Lymphocytes % (A) 5 %; MCHC 33.3 g/dL (31.0-37.0); MCV 99.3 fL (80.0-100.0); Macrocytosis Slight; Mean Platelet Volume 8.3; Monocytes # (A) 0.9 k/uL (0-1.0); Monocytes % (A) 5 %; Neutrophils # (A) 17.4 k/uL (1.3-7.7); Neutrophils % (A) 89 %; Platelet Count 214 k/uL (150-450); RBC 2.25 m/uL (4.30-5.90); RDW 14.6 % (11.5-15.5); WBC 19.6 k/uL (3.8-10.6)
[2019-12-27] MEDS: IPRATROPIUM-ALBUTEROL 3 ML NEB INHALATION SCH ×4 (07:29→19:33)
[2019-12-27] MEDS: FORMOTEROL FUMARATE 20 MCG/2 ML NEBU INHALATION SCH ×2 (07:29→19:33)
[2019-12-27] MEDS: BUDESONIDE 1 MG/2 ML NEBU INHALATION SCH ×2 (07:29→19:33)
--- NOTE | 2019-12-27 08:13 | PN ---
PROGRESS NOTE Mr. Laurent is a 64-year-old male who presented with symptoms of progressive respiratory distress and was found to have a compression on his trachea from a vocal cord tumor. He underwent tracheostomy. The biopsy of the vocal cord that was done showed evidence of invasive moderately differentiated squamous cell carcinoma on the left and the right vocal cord. He had episode of atrial fibrillation but the rhythm is back in sinus mechanism. His blood pressure is stable, he is on no pressors. He remains intubated and sedated. Continues on aspirin once a day, Lipitor 20 mg daily, clonidine 0.1 mg twice a day, metoprolol tartrate 50 mg twice a day. PHYSICAL EXAMINATION: Blood pressure running in the 100s with a heart rate in the 60s. LUNGS: Clear to auscultation, anteriorly. HEART: Regular rate and rhythm, S1, S2. No S3. No rub appreciated. ABDOMEN: Soft, positive bowel sounds, no organomegaly. EXTREMITIES: No edema. LAB DATA: Revealed hemoglobin of 7.4, BUN and creatinine 28 and 1.2. IMPRESSION: 1. Respiratory failure, status post tracheostomy. 2. 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 3. Prior history of alcoholism. 4. Hyponatremia. 5. Anemia. 6. Prior episode of hypertension. RECOMMENDATION: I will decrease the dose of to once a day. Continue on the present dose of beta magdalena. Depending on his heart rate and blood pressure, further adjustment will be made. Attempt to wean him off the ventilator today will be done. He will need further evaluation by the Oncology Service for decision regarding his malignancy. MMODL / IJN: [id number] /
--- NOTE | 2019-12-27 09:45 | XR ---
EXAMINATION TYPE: XR chest 1V portable DATE OF EXAM: 12/27/2019 COMPARISON: 12/26/2019 HISTORY: Tube placement TECHNIQUE: Single frontal view of the chest is obtained. FINDINGS: Tracheostomy tube is stable. There is an NG tube and central line also stable. Left-sided consolidation and pleural effusion are unchanged. Underlying COPD noted. Heart size normal. Biapical pleural thickening and calcification. Correlate for asbestos related disease. Ectasia and atheroscler otic change aorta. IMPRESSION: 1. COPD with stable left lower lobe infiltrate and small effusion.
[2019-12-27] MEDS: methylPREDNISolone SOD SUCCI 40 MG/ML 1 ML VIAL IV SCH ×2 (09:49→20:54)
[2019-12-27] MEDS: CHOLECALCIFEROL 1,000 UNIT TAB PO SCH ×2 (09:49→20:54)
[2019-12-27] MEDS: CHLORHEXIDINE GLUCONATE 15 ML CUP MUCOUS MEM SCH ×2 (09:49→20:54)
[2019-12-27] MEDS: ATORVASTATIN 20 MG TAB PO SCH (09:49)
[2019-12-27] MEDS: METOPROLOL TARTRATE 50 MG TAB PO SCH ×2 (09:49→20:55)
[2019-12-27] MEDS: PANTOPRAZOLE 40 MG/10 ML VIAL IVP SCH ×2 (09:49→20:54)
[2019-12-27] MEDS: cloNIDine HCL 0.1 MG TAB PO SCH (09:49)
[2019-12-27] MEDS: ASPIRIN 81 MG PO SCH (09:49)
[2019-12-27] MEDS: NICOTINE 14MG/24HR PATCH TRANSDERM SCH (09:49)
[2019-12-27] MEDS: POTASSIUM CHLORIDE ER 20 MEQ TAB.ER PO SCH (09:49)
--- NOTE | 2019-12-27 10:38 | P.PN ---
Subjective Progress Note Date: 12/27/19 On 12/27/2019 the patient is postop day #3 following a tracheostomy tube insertion. This morning, the patient was taken off sedation his mental status is not completely normal. He is restless and sometimes agitated in bed. The same was done yesterday. He was taken off sedation. He was placed on CPAP for around 5 hours. He subsequently became agitated and he went into atrial fibrillation with rapid ventricular response, and based on that the sedation was restarted. He received 5 mg of IV metoprolol and subsequently converted back spontaneously into normal sinus rhythm. This morning. Remains in sinus rhythm and is taking metoprolol 50 mg by mouth or per NG twice a day. He is back on assist control mode of ventilation. Currently is on at the rate of 14 with a tidal volume of 400 and FiO2 of 40% with a PEEP of 5. Chest x-ray shows some left lower lobe consolidation and sputum cultures have grown Serratia and the patient is covered with IV Zosyn. Note that he has a stable left-sided chest wall hematoma. He has developed a a scrotal hematoma also which we think it's of a lung cancer recurrence. He already had a Ronquillo catheter in place. There is a soft hematoma and is not growing at all in size. His hemoglobin currently is down to 7.4 and the patient has not received any form of anticoagulation. In terms of mentation, he is able to move all 4 extremities. He is lethargic, not following any commands at this point in time. He was taken off sedation approximately an hour ago and is currently receiving a sedation holiday. He is afebrile. White cell count is at 19.6. I reviewed the surgical note from ENT. The patient has a mass which is invading the left vocal cord. Apparently the right vocal cord is within normal limits. 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 Oncology has already been involved in this case. NG tube is in place. The patient is receiving enteral feeding for nutritional support in the form of vital high protein. He is at goal at the rate of 47 mL an hour. His sodium level is improved. Sodium level is up to 136. No other significant events overnight. Objective - Vital Signs Vital signs: Vital Signs Temp 96.5 F L 12/27/19 08:00 Pulse 96 12/27/19 10:00 Resp 14 12/27/19 10:00 BP 144/70 12/27/19 10:00 Pulse Ox 100 12/27/19 10:00 Intake & Output 12/26/19 12/27/19 12/27/19 18:59 06:59 18:59 Intake Total 7869.190 5007.313 418.088 Output Total 680 570 260 Balance 662.875 868.313 158.088 Weight 74.2 kg Intake: IV 615 583 212 Normal Saline Pressure 15 33 12 Bag Sodium Chloride 0.9% 1, 600 550 200 000 ml @ 50 mls/hr IV . Q20H [facility] Rx#:[id number] Intake, IV Titration 97.875 248.313 159.088 Amount Norepinephrine 32 mg In 0 Sodium Chloride 0.9% 218 ml @ 0.05 MCG/KG/MIN 1. 533 mls/hr IV .Q24H [facility] Rx#:[id number] Piperacillin-Tazobactam 3 100 .375 gm In Sodium Chloride 0.9% 100 ml @ 25 mls/hr IVPB Q8H [facility] Rx#: [id number] Propofol 1,000 mg In 97.875 248.313 59.088 Empty Bag 1 bag @ Titrate IV .Q0M [facility] Rx#: [id number] Tube Feeding 540 517 47 Other 90 90 Output: Urine 680 570 260 Other: Voiding Method Indwelling Catheter Indwelling Catheter # Bowel Movements 1 ABP, PAP, CO, CI - Last Documented Arterial Blood Pressure 141/66 - Exam Gen. appearance the patient is calm comfortable the patient is arousing and the patient is a tracheostomy to #8 Head exam was generally normal. There was no scleral icterus or corneal arcus. Mucous membranes were moist. Neck was supple and without jugular venous distension, thyromegaly, or carotid bruits. Carotids were easily palpable bilaterally. There was no adenopathy. There is some questionable noisy breathing during inspiration and guarded and neck area, and this obviously raises the concern for a stridor. Lungs sounds are diminished and there is diffuse expiratory wheezes throughout the lung his bilaterally along with prolongation of exhalation phase of breathing. Left chest hematoma and the hematomas extending in the lateral aspect of the left chest extending posteriorly and inferiorly. Please refer to the CAT scan findings. The CAT scan showed a stable hematoma over the left anterior chest area extending laterally. Cardiac exam revealed the PMI to be normally situated and sized. The rhythm was regular and no extrasystoles were noted during several minutes of auscultation. The first and second heart sounds were normal and physiologic splitting of the second heart sound was noted. There were no murmurs, rubs, clicks, or gallops. Abdominal exam revealed normal bowel sounds. The abdomen was soft, non-tender, and without masses, organomegaly, or appreciable enlargement of the abdominal aorta. The patient also has developed a stable scrotal hematoma and the Ronquillo catheter is in place. Examination of the extremities revealed easily palpable radial, femoral and pedal pulses. There was no cyanosis, clubbing or edema. Examination of the skin revealed no evidence of significant rashes, suspicious appearing nevi or other concerning lesions. Neurologically the patient is sedated and he is arousable and he is not follow ing commands yet. Somewhat agitated. There may be an underlying component of encephalopathy. Note that he is a chronic alcohol drinker. - Labs CBC & Chem 7: 12/27/19 06:03 12/27/19 06:03 Labs: Abnormal Lab Results - Last 24 Hours (Table) 12/26/19 12/26/19 12/26/19 Range/Units 11: 11:56 18:09 WBC (3.8-10.6) k/uL RBC (4.30-5.90) m/uL Hgb (13.0-17.5) gm/dL Hct (39.0-53.0) % Neutrophils # (1.3-7.7) k/uL Lymphocytes # (1.0-4.8) k/uL ABG Total CO2 (19-24) mmol/L ABG O2 Saturation (94-97) % Sodium (137-145) mmol/L Chloride (98-107) mmol/L Carbon Dioxide (22-30) mmol/L BUN (9-20) mg/dL Glucose (74-99) mg/dL POC Glucose (mg/dL) 171 H 154 H 158 H (75-99) mg/dL Calcium (8.4-10.2) mg/dL 12/26/19 12/27/19 12/27/19 Range/Units 23:11 05:23 05:27 WBC (3.8-10.6) k/uL RBC (4.30-5.90) m/uL Hgb (13.0-17.5) gm/dL Hct (39.0-53.0) % Neutrophils # (1.3-7.7) k/uL Lymphocytes # (1.0-4.8) k/uL ABG Total CO2 25 H (19-24) mmol/L ABG O2 Saturation 98.2 H (94-97) % Sodium (137-145) mmol/L Chloride (98-107) mmol/L Carbon Dioxide (22-30) mmol/L BUN (9-20) mg/dL Glucose (74-99) mg/dL POC Glucose (mg/dL) 172 H 165 H (75-99) mg/dL Calcium (8.4-10.2) mg/dL 12/27/19 12/27/19 Range/Units 06:03 06:03 WBC 19.6 H (3.8-10.6) k/uL RBC 2.25 L (4.30-5.90) m/uL Hgb 7.4 L (13.0-17.5) gm/dL Hct 22.4 L (39.0-53.0) % Neutrophils # 17.4 H (1.3-7.7) k/uL Lymphocytes # 0.9 L (1.0-4.8) k/uL ABG Total CO2 (19-24) mmol/L ABG O2 Saturation (94-97) % Sodium 136 L (137-145) mmol/L Chloride 110 H (98-107) mmol/L Carbon Dioxide 21 L (22-30) mmol/L BUN 28 H (9-20) mg/dL Glucose 140 H (74-99) mg/dL POC Glucose (mg/dL) (75-99) mg/dL Calcium 7.9 L (8.4-10.2) mg/dL Microbiology - Last 24 Hours (Table) 12/23/19 22:37 Gram Stain - Final Sputum Sputum Culture - Final Serratia marcescens Yodit albicans Assessment and Plan Plan: 1 acute respiratory failure due to upper airway obstruction secondary to laryngeal mass which do not to be a squamous cell carcinoma and there is elevated the left vocal cord and the patient also was an acute COPD e xacerbation. The patient is post tracheostomy tube insertion and the patient has a #[address] in [address]. Currently on assist control mode of ventilation. 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 The patient is post intubation. The patient is post tracheostomy tube insertion and secured airway currently he has a #8 [address] trache[address] tube in place. 3 left lower lobe pneumonia/effusion with sputum showing Serratia the patient is currently on IV Zosyn 4 chest hematoma currently inactive and stable. Hematoma stable and that hemoglobin is stable at 7.4. In addition the patient has also developed a stable scrotal hematoma and these are spontaneous hematomas developed. Chain Forming Machine Operator on the case. 5 Anemia with a drop in the hemoglobin probably due to development of a left chest hematoma which is currently stable. Hemoglobin is at 7.4 6 pulmonary embolism which is questionable.. There is a questionable filling defect in the subsegmental right lower lobe pulmonary artery branch and the patient is currently on IV heparin. He has previous history of DVT in 2018 and he wasn't taking any form of anticoagulation. 8 hyponatremia recovered 9 history of DVT of the right lower extremity 2017 10 smoker 11 alcoholism, with ongoing encephalopathy, consider delirium 12 questionable liver cirrhosis based on CAT scan findings 13 abnormal troponin without any significant EKG changes or chest pain 14 paroxysmal atrial fibrillation CURRENTLY on metoprolol Plan Discontinue sedation and monitor mental status Wean down the IV Solu-Medrol to 40 mg every 12 hours Continue IV Zosyn Continue enteral nutrition for nutritional support, and consult general surgery for a PEG tube insertion as the patient will need enteral feeding for nutritional support and he will not be able to swallow anytime soon IV fluids in the form of normal saline at the rate of 50 mL an hour and his sodi um level is normalized 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 No anticoagulation for now Condition is critical. I discussed the findings with the . We'll continue to follow up this patient in the ICU closely. . evaluation was done and more than 30 minutes Time with Patient: Greater than 30
[2019-12-27 12:20] LABS: Glucose,Whole Blood 152 mg/dL (75-99)
--- NOTE | 2019-12-27 12:41 | P.GSCN ---
History of Present Illness Consult date: 12/27/19 Reason for Consult: PEG tube placement Requesting physician: Rene Tabares History of present illness: CHIEF COMPLAINT: PEG tube insertion HISTORY OF PRESENT ILLNESS: 64-year-old male who is currently admitted to the ICU with a laryngeal mass. Patient is status post tracheostomy placement. He currently has an NG tube in and is receiving enteral feedings. PAST MEDICAL HISTORY: See list. PAST SURGICAL HISTORY: See list. SOCIAL HISTORY: No illicit drug use. REVIEW OF SYSTEMS: Unable to obtain thorough review of systems secondary to altered mental status PHYSICAL EXAM: VITAL SIGNS: Reviewed. GENERAL: Well-developed in no acute distress. HEENT: Trach noted. No sclera icterus. Extraocular movements grossly intact. Moist buccal mucosa. Head is normocephalic. ABDOMEN: Soft. Nondistended. Nontender. NEUROLOGIC: Alert and oriented. Cranial nerves II through XII grossly intact. LABORATORY DATA: WBC 19.6. Hemoglobin 7.4. Platelet count 214. Sodium 136. Potassium 4.5. BUN 28. Creatinine 1.20. IMAGING: Chest x-ray: COPD with stable left lower lobe infiltrate and small effusion ASSESSMENT: 1. Laryngeal mass PLAN: Stop tube feedings at midnight Patient undergo PEG tube placement tomorrow with Dr. Martin Nurse practitioner note has been reviewed by physician. Signing provider agrees with the documented findings, assessment, and plan of care. Past Medical History Past Medical History: COPD, Deep Vein Thrombosis (DVT), GERD/Reflux, Hyperlipi demia, Hypertension, Liver Disease, Pneumonia, Pulmonary Embolus (PE) Additional Past Medical History / Comment(s): Arthritis History of Any Multi-Drug Resistant Organisms: None Reported Past Surgical History: Unable to Obtain Additional Past Surgical History / Comment(s): COLONOSCOPY. BILAT CATARACTS REMOVED Past Anesthesia/Blood Transfusion Reactions: No Reported Reaction Past Psychological History: Anxiety Smoking Status: Current every day smoker Past Alcohol Use History: Unable to Obtain, Daily Additional Past Alcohol Use History / Comment(s): SMOKES 1 PPD SINCE ABOUT AGE 12. DRINKS 10 BEERS DAILY Past Drug Use History: Unable to Obtain, Marijuana - Past Family History Mother Family Medical History: Hypertension Father History Unknown: Yes Family Medical History: Hypertension Medications and Allergies Home Medications Medication Instructions Recorded Confirmed Type Atorvastatin [Lipitor] 20 mg PO DAILY 07/05/18 12/21/19 History Cholecalciferol [Vitamin D3] 1,000 unit PO BID 07/05/18 12/21/19 History Furosemide [Lasix] 40 mg PO DAILY 07/05/18 12/21/19 History Multivitamin [Men's Multi-Vitamin] 1 tab PO DAILY 07/05/18 12/21/19 History Sumner-3 Fatty Acids/Fish Oil [Fish 2 cap PO DAILY 07/05/18 12/21/19 History Oil 1,000 mg Softgel] Potassium Chloride [K-Tab ER] 10 meq PO DAILY 07/05/18 12/21/19 History Ranitidine HCl [Zantac] 150 mg PO DAILY 07/05/18 12/21/19 History Spironolactone 50 mg PO DAILY 07/05/18 12/21/19 History cloNIDine HCL [Catapres] 0.2 mg PO BID 07/05/18 12/21/19 History traMADol HCl [Ultram] 50 mg PO BID PRN 07/05/18 12/21/19 History Amoxic-Pot Clav 875-125Mg 1 tab PO BID 12/21/19 12/21/19 History [Augmentin 875-125] Clopidogrel Bisulfate [Plavix] 75 mg PO DAILY 12/21/19 12/21/19 History Metoprolol Tartrate [Lopressor] 50 mg PO DAILY 12/21/19 12/21/19 History diphenhydrAMINE [Benadryl] 25 mg PO DAILY PRN 12/21/19 12/21/19 History predniSONE See Taper PO DAILY 12/21/19 12/21/19 History Allergies Allergy/AdvReac Type Severity Reaction Status Date / Time lisinopril Allergy Swelling Verified 12/21/19 21:45 acetaminophen [From Tylenol] AdvReac LIVER Verified 12/21/19 21:45 PROBLEMS PER NSAIDS (Non-Steroidal AdvReac LIVER Verified 12/21/19 21:45 Anti-Inflamma PROBLEMS PER Surgical - Exam Vital Signs Temp Pulse Resp BP Pulse Ox 98.1 F 65 20 145/83 96 12/21/19 15:26 12/21/19 15:26 12/21/19 15:26 12/21/19 15:26 12/21/19 15:26 Results - Labs 12/27/19 06:03 12/27/19 06:03 Abnormal Lab Results - Last 24 Hours (Table) 12/26/19 12/26/19 12/26/19 Range/Units 11:56 18:09 23:11 WBC (3.8-10.6) k/uL RBC (4.30-5.90) m/uL Hgb (13.0-17.5) gm/dL Hct (39.0-53.0) % Neutrophils # (1.3-7.7) k/uL Lymphocytes # (1.0-4.8) k/uL ABG Total CO2 (19-24) mmol/L ABG O2 Saturation (94-97) % Sodium (137-145) mmol/L Chloride (98-107) mmol/L Carbon Dioxide (22-30) mmol/L BUN (9-20) mg/dL Glucose (74-99) mg/dL POC Glucose (mg/dL) 154 H 158 H 172 H (75-99) mg/dL Calcium (8.4-10.2) mg/dL 12/27/19 12/27/19 12/27/19 Range/Units 05:23 05:27 06:03 WBC 19.6 H (3.8-10.6) k/uL RBC 2.25 L (4.30-5.90) m/uL Hgb 7.4 L (13.0-17.5) gm/dL Hct 22.4 L (39.0-53.0) % Neutrophils # 17.4 H (1.3-7.7) k/uL Lymphocytes # 0.9 L (1.0-4.8) k/uL ABG Total CO2 25 H (19-24) mmol/L ABG O2 Saturation 98.2 H (94-97) % Sodium (137-145) mmol/L Chloride (98-107) mmol/L Carbon Dioxide (22-30) mmol/L BUN (9-20) mg/dL Glucose (74-99) mg/dL POC Glucose (mg/dL) 165 H (75-99) mg/dL Calcium (8.4-10.2) mg/dL 12/27/19 Range/Units 06:03 WBC (3.8-10.6) k/uL RBC (4.30-5.90) m/uL Hgb (13.0-17.5) gm/dL Hct (39.0-53.0) % Neutrophils # (1.3-7.7) k/uL Lymphocytes # (1.0-4.8) k/uL ABG Total CO2 (19-24) mmol/L ABG O2 Saturation (94-97) % Sodium 136 L (137-145) mmol/L Chloride 110 H (98-107) mmol/L Carbon Dioxide 21 L (22-30) mmol/L BUN 28 H (9-20) mg/dL Glucose 140 H (74-99) mg/dL POC Glucose (mg/dL) (75-99) mg/dL Calcium 7.9 L (8.4-10.2) mg/dL Microbiology - Last 24 Hours (Table) 12/23/19 22:37 Gram Stain - Final Sputum Sputum Culture - Final Serratia marcescens Yodit albicans Diabetes panel 12/27/19 Range/Units 06:03 Sodium 136 L (137-145) mmol/L Potassium 4.5 (3.5-5.1) mmol/L Chloride 110 H (98-107) mmol/L Carbon Dioxide 21 L (22-30) mmol/L BUN 28 H (9-20) mg/dL Creatinine 1.20 (0.66-1.25) mg/dL Glucose 140 H (74-99) mg/dL Calcium 7.9 L (8.4-10.2) mg/dL Calcium panel 12/27/19 Range/Units 06:03 Calcium 7.9 L (8.4-10.2) mg/dL Pituitary panel 12/27/19 Range/Units 06:03 Sodium 136 L (137-145) mmol/L Potassium 4.5 (3.5-5.1) mmol/L Chloride 110 H (98-107) mmol/L Carbon Dioxide 21 L (22-30) mmol/L BUN 28 H (9-20) mg/dL Creatinine 1.20 (0.66-1.25) mg/dL Glucose 140 H (74-99) mg/dL Calcium 7.9 L (8.4-10.2) mg/dL Adrenal panel 12/27/19 Range/Units 06:03 Sodium 136 L (137-145) mmol/L Potassium 4.5 (3.5-5.1) mmol/L Chloride 110 H (98-107) mmol/L Carbon Dioxide 21 L (22-30) mmol/L BUN 28 H (9-20) mg/dL Creatinine 1.20 (0.66-1.25) mg/dL Glucose 140 H (74-99) mg/dL Calcium 7.9 L (8.4-10.2) mg/dL
--- NOTE | 2019-12-27 13:10 | P.PN ---
Subjective Progress Note Date: 12/27/19 Principal diagnosis: obstructive respiratory failure Patient remains ventilated, he is being weaned off of sedation, currently not following commands, did respond to loud voice. Objective - Vital Signs Vital signs: Vital Signs Temp 96.5 F L 12/27/19 08:00 Pulse 96 12/27/19 10:00 Resp 14 12/27/19 10:00 BP 144/70 12/27/19 10:00 Pulse Ox 100 12/27/19 10:00 Intake & Output 12/26/19 12/27/19 12/27/19 18:59 06:59 18:59 Intake Total 1209.235 2770.313 465.088 Output Total 680 570 260 Balance 662.875 868.313 205.088 Weight 74.2 kg Intake: IV 615 583 212 Normal Saline Pressure 15 33 12 Bag Sodium Chloride 0.9% 1, 600 550 200 000 ml @ 50 mls/hr IV . Q20H [facility] Rx#:[id number] Intake, IV Titration 97.875 248.313 159.088 Amount Norepinephrine 32 mg In 0 Sodium Chloride 0.9% 218 ml @ 0.05 MCG/KG/MIN 1. 533 mls/hr IV .Q24H [facility] Rx#:[id number] Piperacillin-Tazobactam 3 100 .375 gm In Sodium Chloride 0.9% 100 ml @ 25 mls/hr IVPB Q8H [facility] Rx#: [id number] Propofol 1,000 mg In 97.875 248.313 59.088 Empty Bag 1 bag @ Titrate IV .Q0M [facility] Rx#: [id number] Tube Feeding 540 517 94 Other 90 90 Output: Urine 680 570 260 Other: Voiding Method Indwelling Catheter Indwelling Catheter # Bowel Movements 1 ABP, PAP, CO, CI - Last Documented Arterial Blood Pressure 141/66 - Constitutional General appearance: Present: average body habitus, mild distress - EENT Eyes: Present: anicteric sclerae - Psychiatric Psychiatric: Absent: A&O x's 3, appropriate affect, intact judgment & insight - Labs CBC & Chem 7: 12/27/19 06:03 12/27/19 06:03 Labs: Abnormal Lab Results - Last 24 Hours (Table) 12/26/19 12/26/19 12/26/19 Range/Units 11:20 11:56 18:09 WBC (3.8-10.6) k/uL RBC (4.30-5.90) m/uL Hgb (13.0-17.5) gm/dL Hct (39.0-53.0) % Neutrophils # (1.3-7.7) k/uL Lymphocytes # (1.0-4.8) k/uL ABG Total CO2 (19-24) mmol/L ABG O2 Saturation (94-97) % Sodium (137-145) mmol/L Chloride (98-107) mmol/L Carbon Dioxide (22-30) mmol/L BUN (9-20) mg/dL Glucose (74-99) mg/dL POC Glucose (mg/dL) 171 H 154 H 158 H (75-99) mg/dL Calcium (8.4-10.2) mg/dL 12/26/19 12/27/19 12/27/19 Range/Units 23:11 05:23 05:27 WBC (3.8-10.6) k/uL RBC (4.30-5.90) m/uL Hgb (13.0-17.5) gm/dL Hct (39.0-53.0) % Neutrophils # (1.3-7.7) k/uL Lymphocytes # (1.0-4.8) k/uL ABG Total CO2 25 H (19-24) mmol/L ABG O2 Saturation 98.2 H (94-97) % Sodium (137-145) mmol/L Chloride (98-107) mmol/L Carbon Dioxide (22-30) mmol/L BUN (9-20) mg/dL Glucose (74-99) mg/dL POC Glucose (mg/dL) 172 H 165 H (75-99) mg/dL Calcium (8.4-10.2) mg/dL 12/27/19 12/27/19 Range/Units 06:03 06:03 WBC 19.6 H (3.8-10.6) k/uL RBC 2.25 L (4.30-5.90) m/uL Hgb 7.4 L (13.0-17.5) gm/dL Hct 22.4 L (39.0-53.0) % Neutrophils # 17.4 H (1.3-7.7) k/uL Lymphocytes # 0.9 L (1.0-4.8) k/uL ABG Total CO2 (19-24) mmol/L ABG O2 Saturation (94-97) % Sodium 136 L (137-145) mmol/L Chloride 110 H (98-107) mmol/L Carbon Dioxide 21 L (22-30) mmol/L BUN 28 H (9-20) mg/dL Glucose 140 H (74-99) mg/dL POC Glucose (mg/dL) (75-99) mg/dL Calcium 7.9 L (8.4-10.2) mg/dL Microbiology - Last 24 Hours (Table) 12/23/19 22:37 Gram Stain - Final Sputum Sputum Culture - Final Serratia marcescens Yodit albicans Assessment and Plan (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 Patient has multiple acute complex medical conditions and patient is currently not stable. Oncology will follow up once pt is deemed stable. No anticoagualtion at this time, further bleeding suspected.
--- NOTE | 2019-12-27 13:28 | CDI ---
Documentation Clarification Form Date: 12/27/2019 01:07:12 PM From: Radha BenedictOBI, CCDS Admit Date: 12/21/2019 05:48:00 PM Patient Name: Chris Laurent Visit Number: [id number] Discharge Date: ATTENTION: The Clinical Documentation Specialists (CDI) and [facility] Coding Staff appreciate your assistance in clarifying documentation. Please respond to the clarification below the line at the bottom and electronically sign. The CDI & [facility] Coding staff will review the response and follow-up if needed. Please note: Queries are made part of the Legal Health Record. If you have any questions, please contact the author of this message via ITS. Dr. Rene Tabares: Pneumonia was documented in your Progress Notes beginning on 12/22, described as left lower lobe pneumonia without further specificity. History/Risk Factors: Previous pneumonia, COPD, Current smoker. Hypertension, Hyperlipidemia, Chronic liver disease. Clinical Indicators: Patient presented to [facility] on 12/20 with SOB, cough, wheezing, change in his voice & stridor. CTA at [place] showed a small PE in the right lower segment, transferred to [facility]. Admitted with acute exacerbation COPD, Acute purulent tracheobronchitis & acute respiratory failure. On 12/22, the patient became more SOB, put on 15% nrb & then intubated. 12/22 Flexible bronchoscopy: vocal cord tumor with positive pathology for squamous cell carcinoma bilaterally. 12/24 Patient was intubated & tracheostomy done to protect patient's airway. Vital signs 12/20: T (98.1), P 65, R 20 (cough, sob), BP 145/83, PO 96 on 2Lnc. RR worsened on 12/20 to 31 with PO 96, O2 increased to 3Lnc. Admission LAB: WBC 18.6^, Na 119, K 3.4*, 12/22 Sputum culture: (final): Serratia marcescens, Yodit albicans RAD: CXR 12/20: chronic emphysematous change with new left basilar acute infiltrate. 12/23 CXR: Correlate for left lower pneumonia. Treatment 12/20: IV Heparin drip, IV Solumedrol, INHPulmicort, Performist, IV MagSulfte. 12/22 IV Zosyn added for diagnosis of pneumonia. In order to capture the severity of condition, please clarify the type of pneumonia being treated: Aspiration Pneumonia, identify if: o Due to, please specify: Bacterial Pneumonia, specify causal organism (if known) o Gram Negative Pneumonia o Other bacteria (please specify) Viral Pneumonia, specify casual organism (if known) Healthcare Acquired Pneumonia/Pneumonia, unspecified Other, please specify Unable to determine (Last Revision: January 2018) Bacterial Pneumonia, specify causal organism (if known) o Other bacteria , Serratia (documented clearly in the notes) MTDD
[2019-12-27] MEDS ORDERED: METOPROLOL TARTRATE 5 MG/5 ML VIAL IVP STA (14:31)
[2019-12-27] MEDS: NOREPINEPHRINE 32 MG in SODIUM CHLORIDE 0.9% 218 ML IV SCH (14:43)
[2019-12-27] MEDS: MULTIVITAMINS, THERA 1 EACH TAB PO SCH (16:32)
[2019-12-27] MEDS: THIAMINE 100 MG TAB PO SCH (16:32)
[2019-12-27] MEDS: LORazepam 0.5 MG TAB PO PRN (16:32)
[2019-12-27] MEDS: FOLIC ACID 1 MG TAB PO SCH (16:32)
--- NOTE | 2019-12-27 17:10 | PN ---
PROGRESS NOTE Patient is seen for followup for hyponatremia, which is currently corrected. The patient was hypovolemic, maintained on 50 mL/hour of normal saline. Sodium is up to 136 today. PHYSICAL EXAMINATION: On examination, patient is sedated. He is on the vent. Blood pressure is 154/72, heart rate 112 per minute. He is afebrile. EXAMINATION OF THE HEART: S1 and S2. EXAMINATION OF LUNGS: Bilateral breath sounds are heard. ABDOMEN: Soft, non-tender. Examination of lower extremities shows trace edema bilaterally. LABS: Sodium of 136, potassium 4.5, chloride 110, CO2 21, BUN 28, creatinine 1.2, hemoglobin 7.4 g/dL. ASSESSMENT: 1. Hypovolemic hyponatremia, currently improved, maintained on normal saline at 50 mL/hour. 2. Laryngeal mass with airway obstruction, status post tracheostomy. 3. Left lower lobe pneumonia. 4. Chest hematoma, currently stable. PLAN: Continue normal saline. We will sign off. MMODL / IJN: [id number] /
--- NOTE | 2019-12-27 17:40 | PN ---
PROGRESS NOTE DATE OF SERVICE: 12/27/2019 This 64-year-old gentleman admitted with COPD, acute exacerbation, also had significant upper airway obstruction and vocal cord and laryngeal pathology. 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 The patient has a tracheostomy. Sensorium is slightly improved. Dr. Tabares has performed weaning parameters at this time. Multiple consultants are following the patient closely. Surgery is also following the patient closely as well as Hematology/Oncology. Past medical history reviewed. Review of systems could not be taken; the patient is still on mechanical ventilation the patient is much more alert. Sputum culture showed Serratia marcescens and Yodit albicans. CURRENT MEDICATIONS: Reviewed. They include: 1. Ventolin p.r.n. 2. DuoNeb q.i.d. and p.r.n. 3. Aspirin 81 mg daily. 4. Lipitor 20 mg daily. 5. Pulmicort 1 mg b.i.d. 6. Peridex daily. 7. Vitamin D3 1000 daily. 8. Catapres 0.1 daily. 9. Benadryl 25 mg 10.Folic acid. 11.Perforomist. 12.NovoLog. 13.Ativan. 14.Solu-Medrol 40 IV b.i.d. 15.Lopressor. 16.Narcan. 17.Habitrol 14. 18.Protonix. 19.Ultram. PHYSICAL EXAMINATION: Patient is mechanically ventilated and sedated. Pulse is 112, blood pressure 174/108, respiration 15, temperature normal, pulse ox 100% on 40% FiO2. Vent settings are noted. HEENT: Conjunctivae normal. NECK: No jugular venous distention. Tracheostomy present. CARDIOVASCULAR SYSTEM: S1, S2 muffled. RESPIRATORY SYSTEM: Breath sounds diminished at the bases. Bilateral rhonchi and crackles. ABDOMEN: Soft, nontender. LEGS: No edema. No swelling. NERVOUS SYSTEM: Not able to be examined completely. SKIN: No ulcer, rash, bleeding. JOINTS: No active deforming arthropathy. LABS: WBC 19.6, hemoglobin 7.4, sodium 136. ASSESSMENT: 1. Shortness of breath, possible chronic obstructive pulmonary disease, acute exacerbation, as well as acute purulent tracheobronchitis with acute hypoxic respiratory failure, on mechanical ventilation, present on admission. 2. 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 3. Serratia marcescens and Yodit albicans from the sputum. 4. Acute pulmonary embolism on the right side. 5. Extensive significant hematoma of the left side and off anticoagulation because of that reason. 6. Anemia, blood loss anemia secondary to hematoma. 7. Status post transfusion. 8. Atrial fibrillation with a fast ventricular rate. 9. Off anticoagulation currently. 10.Severe hyponatremia, possibly syndrome of inappropriate antidiuretic hormone, status post 3% saline, improving. 11.Continued ongoing nicotine dependence. 12.Troponin 0.093, indeterminate. 13.Hypertension. 14.Hyperlipidemia. 15.Chronic liver disease. 16.Gastroesophageal reflux disease. 17.History of nicotine dependence. 18.History of anxiety. 19.History of ethanol. 20.Hypokalemia. 21.FULL CODE. RECOMMENDATIONS AND DISCUSSION: I recommend to continue current medications, continue with the monitoring, symptomatic treatment. Otherwise, wean off the Solu-Medrol. Continue the antibiotics. Cultures as noted. Continue with the empiric antibiotics. Further weaning attempts per Dr. Tabares. Guarded prognosis. Further recommendations to follow. Patient is on IV Zosyn. Prognosis guarded. Biopsy reports are noted. MMODL / IJN: [id number] / [id number]
[2019-12-27] MEDS: METOPROLOL TARTRATE 5 MG/5 ML VIAL IVP PRN (18:40)
[2019-12-27 18:44] LABS: Glucose,Whole Blood 148 mg/dL (75-99)
[2019-12-27] MEDS: SODIUM CHLORIDE 0.9% 1,000 ML IV SCH (20:54)
[2019-12-28 00:10] LABS: Glucose,Whole Blood 158 mg/dL (75-99)
[2019-12-28] MEDS: INSULIN ASPART (NovoLOG) 100 UNIT/ML VIAL SQ SCH ×4 (00:11→18:54)
[2019-12-28] MEDS: MORPHINE SULFATE 2 MG/ML SYRINGE IVP PRN ×5 (01:21→21:21)
[2019-12-28] MEDS: LORazepam 0.5 MG TAB PO PRN (01:23)
[2019-12-28] MEDS: METOPROLOL TARTRATE 5 MG/5 ML VIAL IVP PRN ×3 (01:29→16:11)
[2019-12-28] MEDS: PIPERACILLIN-TAZOBACTAM 3.375 GM in SODIUM CHLORIDE 0.9% 100 ML IVPB SCH ×3 (02:22→17:10)
[2019-12-28 05:10] LABS: ABG Base Excess -0.4 mmol/L; ABG HCO3 25 mmol/L (21-25); ABG Oxygen Saturation 98.4 % (94-97); ABG PCO2 41 mmHg (35-45); ABG PH 7.39 (7.35-7.45); ABG PO2 115 mmHg (83-108); ABG TCO2 26 mmol/L (19-24); Allen Test Performed? Yes
[2019-12-28 06:21] LABS: HCT 26.6 % (39.0-53.0); HGB 8.8 gm/dL (13.0-17.5); MCH 33.1 pg (25.0-35.0); MCHC 33.1 g/dL (31.0-37.0); MCV 100.2 fL (80.0-100.0); Macrocytosis Slight; Mean Platelet Volume 7.6; Platelet Count 237 k/uL (150-450); RBC 2.66 m/uL (4.30-5.90); WBC 25.3 k/uL (3.8-10.6)
[2019-12-28 06:25] LABS: Glucose,Whole Blood 132 mg/dL (75-99)
[2019-12-28 06:32] LABS: Calcium 8.5 mg/dL (8.4-10.2); Potassium 3.9 mmol/L (3.5-5.1)
[2019-12-28 07:02] LABS: Band Neutrophils % 6 %; Lymphocytes # (M) 2.02 k/uL (1.0-4.8); Metamyelocytes # (M) 0.51 k/uL (0); Metamyelocytes % 2 %; Monocytes # (M) 0.76 k/uL (0-1.0); Myelocytes # (M) 0.25 k/uL (0); Myelocytes % 1 %; Neutrophils % (M) 80 %; Nucleated Red Blood Cells 0 /100 WBC (0-0); Polychromasia Present; Total Cells Counted 100
[2019-12-28] MEDS: IPRATROPIUM-ALBUTEROL 3 ML NEB INHALATION SCH ×4 (07:28→18:56)
[2019-12-28] MEDS: FORMOTEROL FUMARATE 20 MCG/2 ML NEBU INHALATION SCH ×2 (07:28→18:56)
[2019-12-28] MEDS: BUDESONIDE 1 MG/2 ML NEBU INHALATION SCH ×2 (07:28→18:56)
[2019-12-28] MEDS ORDERED: Potassium Replacement Protocol 1 EACH MISC MISCELLANE PRN (07:32)
--- NOTE | 2019-12-28 07:42 | XR ---
EXAMINATION TYPE: XR chest 1V portable DATE OF EXAM: 12/28/2019 COMPARISON: 12/27/2019 HISTORY: Shortness of breath TECHNIQUE: Single frontal view of the chest is obtained. FINDINGS: Tracheostomy tube is stable. There is an NG tube and central line also stable. Left-sided consolidation and pleural effusion are unchanged. Underlying COPD noted. Heart size normal. Biapical pleural thickening and calcification. Correlate for asbestos related disease. Ectasia and atheroscler otic change aorta. IMPRESSION: 1. Stable x-ray compatible COPD and left lower lobe infiltrate and small effusion.
[2019-12-28] MEDS ORDERED: LACTATED RINGERS 1,000 ML IV SCH (07:44)
[2019-12-28] MEDS: PANTOPRAZOLE 40 MG/10 ML VIAL IVP SCH ×2 (08:09→20:27)
[2019-12-28] MEDS: methylPREDNISolone SOD SUCCI 40 MG/ML 1 ML VIAL IV SCH (08:09)
[2019-12-28] MEDS: POTASSIUM CHLORIDE 20 MEQ in WATER FOR INJECTION 1 100ML.BAG IVPB SCH ×2 (08:09→10:26)
[2019-12-28] MEDS: NICOTINE 14MG/24HR PATCH TRANSDERM SCH (08:10)
[2019-12-28] MEDS: CHLORHEXIDINE GLUCONATE 15 ML CUP MUCOUS MEM SCH ×2 (08:10→20:28)
[2019-12-28] MEDS ORDERED: IV FLUID CONTINUATION 800 ML IV ONE (09:52)
[2019-12-28] MEDS: POTASSIUM CHLORIDE ER 20 MEQ TAB.ER PO SCH (10:25)
[2019-12-28] MEDS ORDERED: LIDOCAINE 1% INJ 10MG/ML (20 ML MDV) ONE (10:32)
[2019-12-28] MEDS ORDERED: PROPOFOL 10 MG/ML 20 ML VIAL IV ONE (10:32)
--- NOTE | 2019-12-28 11:40 | P.PN ---
Subjective Progress Note Date: 12/28/19 On today's evaluation of the 12/27 and seeing the patient for a follow-up. Note that the patient underwent a bedside PEG tube insertion today by general surgery. Earlier yesterday, the patient was taken off the sedation and the patient was getting progressively more awake and alert and he was following some simple commands. He was also tolerating a CPAP trials. In any rate, due to this procedure, the patient was kept on an assist-control mode. He was probably given some sedation at time of the PEG tube insertion and currently is admitted sleepy and lethargic. He is arousable with stimulation. He is on assist control mode at the rate of 14 with a tidal volume of 400 and FiO2 of 40% with a PEEP of 5. Chest x-ray shows a stable left lung consolidation. This could be a pneumonia versus a opacity treated outside the chest related to the chest wall hematoma that has developed in his left lung. The hematoma in the left chest is stable. The patient was cultured to have Serratia in his sputum and he remains on IV Zosyn. Hemoglobin is stable. The chest wall hematoma stable. Scrotal hematomas also stable. The white cell count today is up to 25. He is nothing by mouth for now and enteral feeding will be started tomorrow with a 24 hours of activity insertion. Hemoglobin stable at 8.8. He is on bronchodilators. He is on IV Solu Medrol. Sodium level is normalized. No other significant events overnight. Tracheostomy tube in place. No significant air leaks. He has a #8 [address] tracheostomy tube in place for now. Objective - Vital Signs Vital signs: Vital Signs Temp 98.4 F 12/28/19 08:00 Pulse 92 12/28/19 11:16 Resp 13 12/28/19 11:00 BP 150/66 12/28/19 11:00 Pulse Ox 99 12/28/19 11:00 Intake & Output 12/27/19 12/28/19 12/28/19 18:59 06:59 18:59 Intake Total 4558.269 7413 1112 Output Total 1035 2075 410 Balance 101.088 -1063 702 Weight 77.7 kg 77.7 kg Intake: IV 689 626 812 Normal Saline Pressure 39 66 12 Bag Sodium Chloride 0.9% 1, 650 560 200 000 ml @ 50 mls/hr IV . Q20H [facility] Rx#:[id number] Intake, IV Titration 259.088 300 Amount Norepinephrine 32 mg In 0 Sodium Chloride 0.9% 218 ml @ 0.05 MCG/KG/MIN 1. 533 mls/hr IV .Q24H [facility] Rx#:[id number] Piperacillin-Tazobactam 3 200 100 .375 gm In Sodium Chloride 0.9% 100 ml @ 25 mls/hr IVPB Q8H [facility] Rx#: [id number] Potassium Chloride 20 meq 200 In Water For Injection 1 100ml.bag @ 50 mls/hr IVPB Q2H [facility] Rx#: [id number] Propofol 1,000 mg In 59.088 Empty Bag 1 bag @ Titrate IV .Q0M [facility] Rx#: [id number] Tube Feeding 188 356 0 Other 30 Output: Urine 1035 2075 410 Other: Voiding Method Indwelling Catheter Indwelling Catheter Indwelling Catheter # Bowel Movements 2 ABP, PAP, CO, CI - Last Documented Arterial Blood Pressure 141/66 - Exam Gen. appearance the patient is calm comfortable the patient is arousing and the patient is a tracheostomy to #8 Head exam was generally normal. There was no scleral icterus or corneal arcus. Mucous membranes were moist. Neck was supple and without jugular venous distension, thyromegaly, or carotid bruits. Carotids were easily palpable bilaterally. There was no adenopathy. There is some questionable noisy breathing during inspiration and guarded and neck area, and this obviously raises the concern for a stridor. Lungs sounds are diminished and there is diffuse expiratory wheezes throughout the lung his bilaterally along with prolongation of exhalation phase of breathing. Left chest hematoma and the hematomas extending in the lateral aspect of the left chest extending posteriorly and inferiorly. Please refer to the CAT scan findings. The CAT scan showed a stable hematoma over the left anterior chest area extending laterally. Cardiac exam revealed the PMI to be normally situated and sized. The rhythm was regular and no extrasystoles were noted during several minutes of auscultation. The first and second heart sounds were normal and physiologic splitting of the second heart sound was noted. There were no murmurs, rubs, clicks, or gallops. Abdominal exam revealed normal bowel sounds. The abdomen was soft, non-tender, and without masses, organomegaly, or appreciable enlargement of the abdominal aorta. The patient also has developed a stable scrotal hematoma and the Ronquillo catheter is in place. The patient has a PEG tube in his abdomen and the site is likely an intact for now. Examination of the extremities revealed easily palpable radial, femoral and pedal pulses. There was no cyanosis, clubbing or edema. Examination of the skin revealed no evidence of significant rashes, suspicious appearing nevi or other concerning lesions. Neurologically the patient is sedated and he is arousable and he is not following commands . - Labs CBC & Chem 7: 12/28/19 05:51 12/28/19 05:51 Labs: Abnormal Lab Results - Last 24 Hours (Table) 12/27/19 12/27/19 12/28/19 Range/Units 12:19 18:42 00:08 WBC (3.8-10.6) k/uL RBC (4.30-5.90) m/uL Hgb (13.0-17.5) gm/dL Hct (39.0-53.0) % MCV (80.0-100.0) fL Neutrophils # (Manual) (1.3-7.7) k/uL Metamyelocytes # (Man) (0) k/uL Myelocytes # (Manual) (0) k/uL ABG pO2 (83-108) mmHg ABG Total CO2 (19-24) mmol/L ABG O2 Saturation (94-97) % Chloride (98-107) mmol/L BUN (9-20) mg/dL Glucose (74-99) mg/dL POC Glucose (mg/dL) 152 H 148 H 158 H (75-99) mg/dL 12/28/19 12/28/19 12/28/19 Range/Units 05:07 05:51 05:51 WBC 25.3 H (3.8-10.6) k/uL RBC 2.66 L (4.30-5.90) m/uL Hgb 8.8 L (13.0-17.5) gm/dL Hct 26.6 L (39.0-53.0) % MCV 100.2 H (80.0-100.0) fL Neutrophils # (Manual) 21.70 H (1.3-7.7) k/uL Metamyelocytes # (Man) 0.51 H (0) k/uL Myelocytes # (Manual) 0.25 H (0) k/uL ABG pO2 115 H (83-108) mmHg ABG Total CO2 26 H (19-24) mmol/L ABG O2 Saturation 98.4 H (94-97) % Chloride 110 H (98-107) mmol/L BUN 30 H (9-20) mg/dL Glucose 114 H (74-99) mg/dL POC Glucose (mg/dL) (75-99) mg/dL 12/28/19 Range/Units 06:23 WBC (3.8-10.6) k/uL RBC (4.30-5.90) m/uL Hgb (13.0-17.5) gm/dL Hct (39.0-53.0) % MCV (80.0-100.0) fL Neutrophils # (Manual) (1.3-7.7) k/uL Metamyelocytes # (Man) (0) k/uL Myelocytes # (Manual) (0) k/uL ABG pO2 (83-108) mmHg ABG Total CO2 (19-24) mmol/L ABG O2 Saturation (94-97) % Chloride (98-107) mmol/L BUN (9-20) mg/dL Glucose (74-99) mg/dL POC Glucose (mg/dL) 132 H (75-99) mg/dL Assessment and Plan Plan: 1 acute respiratory failure due to upper airway obstruction secondary to laryngeal mass which turned out to be a squamous cell carcinoma and there is elevated the left vocal cord and the patient also was an acute COPD exacerbation. The patient is post tracheostomy tube insertion and the patient has a #8 [address] tracheostomy tube in place. Currently on assist control mode of ventilation. The patient is post tracheostomy tube insertion. The patient also underwent a he remains on assist control mode of ventilation. Chest x-ray shows a left lower lobe opacity, probably an external hematoma causing this chest x- ray findings versus a left lower lobe pneumonia. He is currently on IV Zosyn. 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 The patient is post intubation. The patient is post tracheostomy tube insertion and secured airway currently he has a #8 Shiley tracheostomy tube in place. 3 left lower lobe pneumonia/effusion with sputum showing Serratia the patient is currently on IV Zosyn 4 chest hematoma currently inactive and stable. Hematoma stable and that hemoglobin is stable at 7.4. In addition the patient has also developed a stable scrotal hematoma and these are spontaneous hematomas developed. Full Stack Java Developer on the case. 5 Anemia with a drop in the hemoglobin probably due to development of a left chest hematoma which is currently stable. Hemoglobin is at 8.8 6 pulmonary embolism which is questionable.. There is a questionable filling defect in the subsegmental right lower lobe pulmonary artery branch and the patient is currently on IV heparin. He has previous history of DVT in 2018 and he wasn't taking any form of anticoagulation. 8 hyponatremia recovered 9 history of DVT of the right lower extremity 2018 10 smoker 11 alcoholism, with ongoing encephalopathy, consider delirium 12 questionable liver cirrhosis based on CAT scan findings 13 abnormal troponin without any significant EKG changes or chest pain 14 paroxysmal atrial fibrillation CURRENTLY on metoprolol Plan Monitor white count Stop the Ativan Discontinue stop all sedation for now Wean down the IV Solu-Medrol to 40 mg every 24 hours Continue IV Zosyn PEG was inserted and the patient will be started on enteral feeding by tomorrow IV fluids in the form of normal saline at the rate of 50 mL an hour and his sodium level is normalized 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 No anticoagulation for now Condition is critical. I discussed the findings with the . We'll continue to follow up this patient in the ICU closely. . evaluation was done and more than 30 minutes
--- NOTE | 2019-12-28 12:09 | P.OP ---
Date of Procedure: 12/28/19 Preoperative Diagnosis: Malnutrition Postoperative Diagnosis: Malnutrition Procedure(s) Performed: EGD with PEG tube placement Anesthesia: MAC Surgeon: Devante Martin Estimated Blood Loss (ml): 5 Pathology: none sent Condition: stable Disposition: PACU Description of Procedure: The patient's placed on the bed in the supine position. He received IV sedation. The gastroscope placed oropharynx and passed in the esophagus into the stomach. Scope was then placed through the pylorus. The first and second portion duodenum appeared normal. Scope summer back the antrum this appeared normal. Scope was then brought back in the suitable light reflux was seen the anterior abdominal wall. The skin was anesthetized 1% local Xylocaine. The skin was incised 11 blade and using the the needle the stomach was cannulated. Under and this was under direct vision. The wires placed in the medial. The wire was then snared by the scope and then brought out through the oropharynx. The PEG tube placed overtop the wire and brought down to the stomach. The PEG tube bolster was secured at the 3 cm juliana. Patient tolerated the procedure well.
[2019-12-28] MEDS: METOPROLOL TARTRATE 50 MG TAB PO SCH ×2 (12:10→20:28)
[2019-12-28] MEDS: cloNIDine HCL 0.1 MG TAB PO SCH ×2 (12:10→21:23)
[2019-12-28] MEDS: ATORVASTATIN 20 MG TAB PO SCH (12:10)
[2019-12-28] MEDS: CHOLECALCIFEROL 1,000 UNIT TAB PO SCH ×2 (12:10→20:28)
[2019-12-28] MEDS: MULTIVITAMINS, THERA 1 EACH TAB PO SCH (12:10)
[2019-12-28] MEDS: ASPIRIN 81 MG PO SCH (12:10)
[2019-12-28] MEDS: FOLIC ACID 1 MG TAB PO SCH (12:10)
[2019-12-28] MEDS: THIAMINE 100 MG TAB PO SCH (12:10)
[2019-12-28 12:28] LABS: Glucose,Whole Blood 127 mg/dL (75-99)
[2019-12-28] MEDS: SODIUM CHLORIDE 0.9% 1,000 ML IV SCH (16:21)
[2019-12-28] MEDS: amLODIPine 5 MG TAB PO SCH (17:07)
--- NOTE | 2019-12-28 17:09 | PN ---
PROGRESS NOTE Mr. Laurent is a 64 year old male who presented with symptoms of progressive dyspnea, was found to have vocal tumor compressing on the trachea, has underwent tracheostomy, and is scheduled to undergo PEG tube placement today. He is more alert. He is back in atrial fibrillation. He has no chest discomfort. He continues to be at this time on aspirin once a day, Lipitor 20 mg daily, clonidine 0.1 mg daily, metoprolol 50 mg twice a day. PHYSICAL EXAMINATION: Blood pressure 130/80 with a heart rate in the low 100s. LUNGS: Clear. HEART: Irregular regular. S1, S2. No S3. ABDOMEN: Soft, nontender. EXTREMITIES: No edema. IMPRESSION: 1. 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 2. Paroxysmal atrial fibrillation. 3. Respiratory failure. 4. History of smoking. 5. History of alcohol intake. RECOMMENDATIONS: Will continue supportive care. Adjust the dose of beta magdalena as needed. We will continue to hold anticoagulation because of the chest wall trauma. Depending on his progress, recommendations will be made. The prognosis remains guarded. MMODL / IJN: [id number] /
[2019-12-28 18:55] LABS: Glucose,Whole Blood 112 mg/dL (75-99)
[2019-12-28] MEDS: FLUCONAZOLE IN NACL,ISO-OSM 100 MG in SALINE 1 50ML.BAG IVPB SCH (20:28)
--- NOTE | 2019-12-28 22:15 | PN ---
PROGRESS NOTE DATE OF SERVICE: 12/28/2019 This 64-year-old gentleman who was admitted with COPD acute exacerbation also had significant upper airway obstruction and vocal cord and laryngeal pathology. The biopsy report came back as positive for malignancy. The patient had a PEG tube placement today. Multiple consultants are following the patient closely. The patient is still on mechanical ventilation. Patient has tracheostomy. Patient seems to be slightly agitated. The patient also suspected of going through the DTs at this time, but however the patient is getting sedated. The patient has also been on p.r.n. Ativan causing sedation. Patient being closely monitored. PAST MEDICAL HISTORY: Reviewed. REVIEW OF SYMPTOMS: Could not be taken because of the patient's change in mental status. CURRENT MEDICATIONS: Reviewed and include: 1. Ventolin p.r.n. 2. DuoNeb q.i.d. p.r.n. 3. Norvasc 10 mg p.o. b.i.d. 4. Baby aspirin 81 mg. 5. Lipitor 20 mg. 6. Pulmicort. 7. Peridex. 8. Catapres. 9. Benadryl. 10.Folic acid. 11.Solu-Medrol 40 IV b.i.d. 12.Lopressor replacement protocol. 13.Habitrol 14 daily. 14.Protonix. 15.Zosyn 3.375 IV q.8. 16.Vitamin B1 100 mg. 17.Ultram 50 mg b.i.d. p.r.n. PHYSICAL EXAM: Patient is alert, oriented times three. Pulse is 112. Blood pressure 180/99, respirations 55. The pulse ox is 97% on room air. HEENT: Conjunctivae normal. NECK: No JVD. CARDIOVASCULAR: S1, S2 muffled. RESPIRATIONS: Breath sounds diminished in the bases. Bilateral scattered rhonchi and crackles. ABDOMEN: Soft, nontender. LEGS: No edema, no swelling. NERVOUS SYSTEM: Diffusely weak. NECK is tracheostomy. LABS: WBC 25.3, hemoglobin is 8.8. Sodium 140, potassium 3.9. The most recent chest x-ray which was done today which was reviewed personally by me showed evidence of possible left pleural effusion with possible infiltrate. ASSESSMENT: 1. Shortness of breath, possible chronic obstructive pulmonary disease acute exacerbation with acute left lower pneumonia possibly gram-negative with acute hypoxic respiratory failure on mechanical ventilation, present on admission. 2. 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 3. Possible acute delirium tremens and tachycardia. 4. Serratia marcescens and Yodit albicans from the sputum. 5. Acute pulmonary embolism on the right side. 6. Extensive significant hematoma of the left side of the chest, off anticoagulation because of that reason. 7. Anemia acute blood loss anemia secondary to hematoma. 8. Status post blood transfusions. 9. Atrial fibrillation with fast ventricular rate. 10.Off anticoagulation currently. 11.Severe hyponatremia, possibly Syndrome of inappropriate antidiuretic hormone, present on admission, status post 3% saline improving. 12.Continued ongoing nicotine dependence. 13.Troponin 0.093 indeterminate, present on admission. 14.Hypertension. 15.Hyperlipidemia. 16.Chronic liver disease. 17.History of gastroesophageal reflux disease. 18.History of nicotine dependence. 19.History of anxiety. 20.History of ETOH. 21.Hypokalemia. 22.FULL CODE. RECOMMENDATIONS AND DISCUSSION: Recommend to continue current medications, management in this 64-year-old gentleman who presented with multiple complex medical issues. We will continue to monitor. The patient is treated with bronchodilators, empiric antibiotics. The cultures are showing Serratia and Yodit albicans. We will continue to monitor. Add Diflucan to the current regimen. Otherwise, increase the dose of clonidine. Closely follow with multiple consultants and pulmonology/ Cardiology. Prognosis guarded. Further recommendations to follow. See orders for details. Monitor blood sugars closely. MMODL / IJN: [id number] /
[2019-12-29 00:06] LABS: Glucose,Whole Blood 119 mg/dL (75-99)
[2019-12-29] MEDS: INSULIN ASPART (NovoLOG) 100 UNIT/ML VIAL SQ SCH ×4 (02:38→18:49)
[2019-12-29] MEDS: PIPERACILLIN-TAZOBACTAM 3.375 GM in SODIUM CHLORIDE 0.9% 100 ML IVPB SCH ×3 (03:07→18:11)
[2019-12-29] MEDS: MORPHINE SULFATE 2 MG/ML SYRINGE IVP PRN ×2 (03:07→18:49)
[2019-12-29 04:19] LABS: ABG Base Excess 1.9 mmol/L; ABG HCO3 26 mmol/L (21-25); ABG Oxygen Saturation 98.5 % (94-97); ABG PCO2 40 mmHg (35-45); ABG PH 7.43 (7.35-7.45); ABG PO2 106 mmHg (83-108); ABG TCO2 27 mmol/L (19-24); Allen Test Performed? Yes
[2019-12-29] MEDS: METOPROLOL TARTRATE 5 MG/5 ML VIAL IVP PRN (04:23)
[2019-12-29 06:07] LABS: Glucose,Whole Blood 110 mg/dL (75-99)
[2019-12-29 06:18] LABS: Basophils # (A) 0.1 k/uL (0-0.2); Basophils % (A) 0 %; Eosinophils # (A) 0.1 k/uL (0-0.7); Eosinophils % (A) 0 %; HCT 28.2 % (39.0-53.0); HGB 9.1 gm/dL (13.0-17.5); Lymphocytes # (A) 1.2 k/uL (1.0-4.8); Lymphocytes % (A) 7 %; MCH 32.5 pg (25.0-35.0); MCHC 32.1 g/dL (31.0-37.0); MCV 101.1 fL (80.0-100.0); Macrocytosis Slight; Mean Platelet Volume 7.7; Monocytes % (A) 6 %; Neutrophils # (A) 14.8 k/uL (1.3-7.7); Neutrophils % (A) 85 %; Platelet Count 197 k/uL (150-450); RBC 2.79 m/uL (4.30-5.90); RDW 15.4 % (11.5-15.5); WBC 17.5 k/uL (3.8-10.6)
[2019-12-29 06:28] LABS: African American GFR (CKD) >90 (>60 ml/min/1.73 sqM); Anion Gap 4 mmol/L; Blood Urea Nitrogen 23 mg/dL (9-20); Calcium 8.6 mg/dL (8.4-10.2); Carbon Dioxide 26 mmol/L (22-30); Chloride 108 mmol/L (98-107); Glucose 97 mg/dL (74-99); Non-African American GFR(CKD) 78 (>60 ml/min/1.73 sqM); Potassium 3.5 mmol/L (3.5-5.1); Sodium 138 mmol/L (137-145)
[2019-12-29] MEDS ORDERED: Potassium Replacement Protocol 1 EACH MISC MISCELLANE PRN (06:37)
[2019-12-29] MEDS: POTASSIUM BICARBONATE/CIT AC 20 MEQ TABLET.EFF NG-TUBE SCH ×2 (06:50→08:24)
[2019-12-29] MEDS: BUDESONIDE 1 MG/2 ML NEBU INHALATION SCH ×2 (07:06→19:20)
[2019-12-29] MEDS: FORMOTEROL FUMARATE 20 MCG/2 ML NEBU INHALATION SCH ×2 (07:06→19:20)
[2019-12-29] MEDS: IPRATROPIUM-ALBUTEROL 3 ML NEB INHALATION SCH ×4 (07:06→19:20)
[2019-12-29] MEDS: POTASSIUM CHLORIDE ER 20 MEQ TAB.ER PO SCH (08:24)
[2019-12-29] MEDS: ASPIRIN 81 MG PO SCH (08:24)
[2019-12-29] MEDS: cloNIDine HCL 0.1 MG TAB PO SCH ×3 (08:24→21:02)
[2019-12-29] MEDS: ATORVASTATIN 20 MG TAB PO SCH (08:24)
[2019-12-29] MEDS: METOPROLOL TARTRATE 50 MG TAB PO SCH ×2 (08:24→20:28)
[2019-12-29] MEDS: amLODIPine 5 MG TAB PO SCH ×2 (08:24→20:55)
[2019-12-29] MEDS: CHOLECALCIFEROL 1,000 UNIT TAB PO SCH ×2 (08:24→20:50)
[2019-12-29] MEDS: NICOTINE 14MG/24HR PATCH TRANSDERM SCH (08:25)
[2019-12-29] MEDS: CHLORHEXIDINE GLUCONATE 15 ML CUP MUCOUS MEM SCH ×2 (08:25→20:50)
[2019-12-29] MEDS: PANTOPRAZOLE 40 MG/10 ML VIAL IVP SCH (08:25)
[2019-12-29] MEDS: methylPREDNISolone SOD SUCCI 40 MG/ML 1 ML VIAL IV SCH (08:26)
--- NOTE | 2019-12-29 08:31 | XR ---
EXAMINATION TYPE: XR chest 1V portable DATE OF EXAM: 12/29/2019 COMPARISON: 12/28/2019 HISTORY: Shortness of breath and tracheostomy tube placement. TECHNIQUE: Single frontal view of the chest is obtained. FINDINGS: Midline tracheostomy tube and left-sided subclavian approach central venous catheter are s imilar in position. Left basilar airspace disease and obscuration of the hemidiaphragm and costophren ic angle are unchanged. New haziness over the right hemidiaphragm border. Pulmonary hyperinflation of underlying COPD with biapical calcific pleural plaquing. No acute osseous process. IMPRESSION: Similar retrocardiac opacity and at least trace left pleural effusion with new haziness of the right hemidiaphragm, likely atelectasis. Underlying COPD. Stable tracheostomy and left central venous catheter.
[2019-12-29 12:01] LABS: Glucose,Whole Blood 110 mg/dL (75-99)
[2019-12-29] MEDS: SODIUM CHLORIDE 0.9% 1,000 ML IV SCH (12:45)
[2019-12-29] MEDS: MULTIVITAMINS, THERA 1 EACH TAB PO SCH (12:45)
[2019-12-29] MEDS: FOLIC ACID 1 MG TAB PO SCH (12:45)
[2019-12-29] MEDS: THIAMINE 100 MG TAB PO SCH (12:45)
--- NOTE | 2019-12-29 13:30 | PN ---
PROGRESS NOTE This patient's EMR, lab tests and clinical panels were reviewed. This patient has a history of paroxysmal atrial fibrillation. He underwent tracheostomy. Patient's blood pressure is 150/80 mmHg. Patient's heart rate varies from 100 to 120 per minute. First and second heart sounds are normal. Lungs reveal bilateral scattered wheezes. Patient's medications are reviewed. We will continue at present Lopressor 50 mg b.i.d. Patient is also getting IV Lopressor p.r.n. for the high heart rate. The patient is currently not anticoagulated. MMODL / IJN: [id number] /
--- NOTE | 2019-12-29 14:06 | PN ---
PROGRESS NOTE CHIEF COMPLAINT: Malnutrition. SUBJECTIVE: He remains in the ICU on the ventilator. Tube feeds have not started thus far. He does not appear to be in any obvious discomfort. White blood cell count is 17.4, which is decreasing. Tachycardia persists. OBJECTIVE: ABDOMEN: Soft, minimal distention, PEG tube intact. ASSESSMENT: [id number] with malnutrition. PLAN: Begin tube feeds today. Monitor residuals. Keep head elevated. MMODL / IJN: [id number] /
[2019-12-29] MEDS ORDERED: DILTIAZEM DRIP BOLUS FROM BAG 1 MG SOLN IV ONE (16:00)
[2019-12-29] MEDS: DILTIAZEM 125 MG in SODIUM CHLORIDE 0.9% 100 ML IV SCH (16:31)
--- NOTE | 2019-12-29 16:40 | P.PN ---
Subjective Progress Note Date: 12/29/19 On 12/29/2019, the patient is off sedation. He seems to more awake compared to yesterday. Is trying to follow some simple commands although I'm not certain is able to do that at all times. Note that he is quite lethargic. He is also weak. He is on 2. a straight knowing that he has a very valuable tracheostomy tube which would like to protect as the patient has significant upper airway obstruction. He is on a mechanical ventilator. He is essentially on the same vent setting which included an assist-control at the rate of 14 with a tidal volume 400 and FiO2 of 40% with a PEEP of 5. Chest x-ray still showing stable left lung opacity/consolidation. The patient also has a stable left chest hematoma which is shrinking. He also has a stable scrotal hematoma which is also shrinking. Hemoglobin is stable. He had a PEG tube insertion and the patient will be started on enteral feeding for nutritional support. He had his tube yesterday and he can be started on enteral feeding today. He is a #[address] tube [address]. Chest x-ray shows no acute of about this. Rest or secretions of scans. No significant agitation. We will also like to put this patient on a CPAP trial and if possible tracheostomy trach collar if he is able to tolerate. His white cell count is down to 17.9. Hemoglobin stable at 9.1. Blood gases from today showed a pH of 7.4 with a pCO2 of 40 and pO2 of 109. Objective - Vital Signs Vital signs: Vital Signs Temp 98.0 F 12/29/19 12:00 Pulse 131 H 12/29/19 15:41 Resp 16 12/29/19 15:00 BP 122/77 12/29/19 15:00 Pulse Ox 98 12/29/19 15:00 Intake & Output 12/28/19 12/29/19 12/29/19 18:59 06:59 18:59 Intake Total 1483 733 530 Output Total 0017 9505 1200 Balance -843 -7682 -576 Weight 77.7 kg 74.2 kg Intake: IV 1183 583 530 Normal Saline Pressure 33 33 30 Bag Sodium Chloride 0.9% 1, 550 550 500 000 ml @ 50 mls/hr IV . Q20H [facility] Rx#:[id number] Intake, IV Titration 300 150 Amount Fluconazole in NaCl,Iso- 50 Osm 100 mg In Saline 1 50ml.bag @ 50 mls/hr IVPB Q24H [facility] Rx#:[id number] Piperacillin-Tazobactam 3 100 100 .375 gm In Sodium Chloride 0.9% 100 ml @ 25 mls/hr IVPB Q8H [facility] Rx#: [id number] Potassium Chloride 20 meq 200 In Water For Injection 1 100ml.bag @ 50 mls/hr IVPB Q2H [facility] Rx#: [id number] Tube Feeding 0 Output: Urine 1795 1775 1200 Other: Voiding Method Indwelling Catheter Indwelling Catheter Indwelling Catheter ABP, PAP, CO, CI - Last Documented Arterial Blood Pressure 141/66 - Exam Gen. appearance the patient is calm comfortable the patient is arousing and the patient is a tracheostomy to #8 Head exam was generally normal. There was no scleral icterus or corneal arcus. Mucous membranes were moist. Neck was supple and without jugular venous distension, thyromegaly, or carotid bruits. Carotids were easily palpable bilaterally. There was no adenopathy. There is some questionable noisy breathing during inspiration and guarded and neck area, and this obviously raises the concern for a stridor. Lungs sounds are diminished and there is diffuse expiratory wheezes throughout the lung his bilaterally along with prolongation of exhalation phase of breathing. Left chest hematoma and the hematomas extending in the lateral aspect of the left chest extending posteriorly and inferiorly. Please refer to the CAT scan findings. The CAT scan showed a stable hematoma over the left anterior chest area extending laterally. Cardiac exam revealed the PMI to be normally situated and sized. The rhythm was regular and no extrasystoles were noted during several minutes of auscultation. The first and second heart sounds were normal and physiologic splitting of the second heart sound was noted. There were no murmurs, rubs, clicks, or gallops. Abdominal exam revealed normal bowel sounds. The abdomen was soft, non-tender, and without masses, organomegaly, or appreciable enlargement of the abdominal aorta. The patient also has developed a stable scrotal hematoma and the Ronquillo catheter is in place. The patient has a PEG tube in his abdomen and the site is likely an intact for now. Examination of the extremities revealed easily palpable radial, femoral and pedal pulses. There was no cyanosis, clubbing or edema. Examination of the skin revealed no evidence of significant rashes, suspicious appearing nevi or other concerning lesions. Neurologically the patient is more arousable. Currently is on 2. point restr aints. He has significant motor weakness in all 4 extremities. No facial asymmetry. Pupils are equal and reactive to light. - Labs CBC & Chem 7: 12/29/19 05:33 12/29/19 05:33 Labs: Abnormal Lab Results - Last 24 Hours (Table) 12/28/19 12/29/19 12/29/19 Range/Units 18:53 00:04 04:18 WBC (3.8-10.6) k/uL RBC (4.30-5.90) m/uL Hgb (13.0-17.5) gm/dL Hct (39.0-53.0) % MCV (80.0-100.0) fL Neutrophils # (1.3-7.7) k/uL ABG HCO3 26 H (21-25) mmol/L ABG Total CO2 27 H (19-24) mmol/L ABG O2 Saturation 98.5 H (94-97) % Chloride (98-107) mmol/L BUN (9-20) mg/dL POC Glucose (mg/dL) 112 H 119 H (75-99) mg/dL 12/29/19 12/29/19 12/29/19 Range/Units 05:33 05:33 06:05 WBC 17.5 H (3.8-10.6) k/uL RBC 2.79 L (4.30-5.90) m/uL Hgb 9.1 L (13.0-17.5) gm/dL Hct 28.2 L (39.0-53.0) % MCV 101.1 H (80.0-100.0) fL Neutrophils # 14.8 H (1.3-7.7) k/uL ABG HCO3 (21-25) mmol/L ABG Total CO2 (19-24) mmol/L ABG O2 Saturation (94-97) % Chloride 108 H (98-107) mmol/L BUN 23 H (9-20) mg/dL POC Glucose (mg/dL) 110 H (75-99) mg/dL 12/29/19 Range/Units 11:58 WBC (3.8-10.6) k/uL RBC (4.30-5.90) m/uL Hgb (13.0-17.5) gm/dL Hct (39.0-53.0) % MCV (80.0-100.0) fL Neutrophils # (1.3-7.7) k/uL ABG HCO3 (21-25) mmol/L ABG Total CO2 (19-24) mmol/L ABG O2 Saturation (94-97) % Chloride (98-107) mmol/L BUN (9-20) mg/dL POC Glucose (mg/dL) 110 H (75-99) mg/dL Assessment and Plan Plan: 1 acute respiratory failure due to upper airway obstruction secondary to lar yngeal mass which turned out to be a squamous cell carcinoma and there is effacement of the left vocal cord and the patient also was an acute COPD exacerbation. The patient is post tracheostomy tube insertion and the patient has a #[address] in [address]. Currently on assist control mode of ventilation. The patient is post tracheostomy tube insertion. The patient also underwent a he remains on assist control mode of ventilation. Chest x-ray shows a left lower lobe opacity, probably an external hematoma causing this chest x- ray findings versus a left lower lobe pneumonia. He is currently on IV Zosyn. 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 The patient is post intubation. The patient is post tracheostomy tube insertion and secured airway currently he has a #8 Shiley tracheostomy tube in place. 3 left lower lobe pneumonia/effusion with sputum showing Serratia the patient is currently on IV Zosyn 4 chest hematoma currently inactive and stable. 5 Anemia with a drop in the hemoglobin, currently stable hemoglobin of 9.1 6 pulmonary embolism which is questionable.. There is a questionable filling defect in the subsegmental right lower lobe pulmonary artery branch and the patient is currently on IV heparin. He has previous history of DVT in 2018 and he wasn't taking any form of anticoagulation. 8 hyponatremia recovered 9 history of DVT of the right lower extremity 2018 10 smoker 11 alcoholism, with ongoing encephalopathy, consider delirium 12 questionable liver cirrhosis based on CAT scan findings 13 abnormal troponin without any significant EKG changes or chest pain 14 paroxysmal atrial fibrillation CURRENTLY on metoprolol, without any anticoagulants. Cardiac rhythm is sinus for now. Plan Continue vent support. Check weaning parameters. The CPAP trial. Possible trach collar today Keep the patient off sedation PTOT evaluation White cell count is improving Continue IV Zosyn IV Solu Medrol 40 mg every 24 hours and switch this patient a prednisone burst taper as of tomorrow Hemoglobin stable at 9.1 We'll initiate enteral feeding for nutritional support Monitor chest wall hematoma Monitor scrotal hematoma We'll continue to follow. No anticoagulation for now Condition is critical. I discussed the findings with the . We'll continue to follow up this patient in the ICU closely. . The evaluation was done and more than 30 minutes Time with Patient: Greater than 30
[2019-12-29 18:19] LABS: Glucose,Whole Blood 126 mg/dL (75-99)
[2019-12-29] MEDS: traMADol 50 MG TAB PO PRN (20:29)
[2019-12-29] MEDS ORDERED: HALOPERIDOL LACTATE 5 MG/ML 1 ML VIAL IVP STA (20:42)
[2019-12-29] MEDS: FLUCONAZOLE IN NACL,ISO-OSM 100 MG in SALINE 1 50ML.BAG IVPB SCH (21:01)
[2019-12-29] MEDS: HALOPERIDOL LACTATE 5 MG/ML 1 ML VIAL IVP PRN (21:49)
--- NOTE | 2019-12-29 22:07 | PN ---
PROGRESS NOTE DATE OF SERVICE: 12/29/2019 64-year-old gentleman with COPD exacerbation also had significant upper airway tumor and obstruction also. Patient had tracheostomy. Patient continues to be tachycardic. The patient is currently in atrial fibrillation with fast ventricular rate. The patient also has significant history of EtOH also. The patient was given Ativan but because of drowsiness at this time, stopped. Multiple consultants are following the patient closely, including surgery, Pulmonary and Gastroenterology and Cardiology. The patient has extensive hematoma on the left side of the body and heparin was stopped at this time. PAST MEDICAL HISTORY: Reviewed. REVIEW OF SYSTEMS: Review of systems could not be taken at length because the patient is mechanically ventilated and sedated. PHYSICAL EXAM: Patient is mechanically ventilated and sedated. Pulse 126 and irregular. Blood pressure 140/100. Respirations 15, temperature is 98.2, pulse ox 98% on 40% FiO2, mechanical vent settings are noted. HEENT: Conjunctivae is normal. Oral mucosa dry. Cardiovascular systems: Tachycardic and irregular. Respirations: Breath sounds diminished in the bases. A few scattered rhonchi and crackles. ABDOMEN: Soft, nontender. LEGS are no edema. No swelling. Nervous system: No focal deficits. Examination of the neck is tracheostomy. LAB STUDIES: WBC 17, hemoglobin 9.1. Glucose noted. ASSESSMENT: 1. Shortness of breath, possible chronic obstructive pulmonary disease acute exacerbation with acute left lower lobe pneumonia possibly gram-negative with acute hypoxic respiratory failure on mechanical ventilation, present on admission. 2. Upper airway obstruction secondary to possible vocal cord or laryngeal tumor with invasive moderately diffuse squamous cell carcinoma, status post tracheostomy with biopsy causing upper airway obstruction. 3. Possible acute delirium tremens and tachycardia. 4. Atrial fibrillation with fast ventricular rate. 5. Serratia marcescens and Yodit albicans in the sputum. 6. Acute pulmonary embolism on the right side, present on admission. 7. Extensive significant hematoma the left side of the chest and left body, left upper limb, off anticoagulation because of that reason. 8. Anemia acute blood loss anemia secondary to hematoma. 9. Atrial fibrillation with fast ventricular rate. 10.Off anticoagulation currently. 11.Severe hyponatremia, possibly Syndrome of inappropriate antidiuretic hormone, present on admission, status post 3% saline. 12.Continued ongoing nicotine dependence. 13.Troponin 0.78 indeterminate, present on admission. 14.Hypertension. 15.Hyperlipidemia. 16.History of chronic liver disease. 17.History of gastroesophageal reflux disease. 18.History of nicotine dependence. 19.History of anxiety. 20.History of ETOH. 21.Hypercalcemia. 22.FULL CODE. RECOMMENDATIONS AND DISCUSSION: Recommend to continue current medications, management and symptomatic treatment. Continue with antibiotics, bronchodilators. Continue with the initial Cardizem drip. Cardiology consultation. Prognosis guarded because of multiple complex medical issues. Further recommendations to follow. MMODL / IJN: [id number] /
[2019-12-29 23:57] LABS: Glucose,Whole Blood 104 mg/dL (75-99)
[2019-12-30] MEDS: INSULIN ASPART (NovoLOG) 100 UNIT/ML VIAL SQ SCH ×4 (01:36→18:15)
[2019-12-30] MEDS: PIPERACILLIN-TAZOBACTAM 3.375 GM in SODIUM CHLORIDE 0.9% 100 ML IVPB SCH ×2 (02:54→17:01)
[2019-12-30] MEDS: HALOPERIDOL LACTATE 5 MG/ML 1 ML VIAL IVP PRN ×4 (03:38→22:55)
[2019-12-30 04:14] LABS: ABG Base Excess 4.5 mmol/L; ABG HCO3 28 mmol/L (21-25); ABG Oxygen Saturation 95.6 % (94-97); ABG PCO2 39 mmHg (35-45); ABG PH 7.47 (7.35-7.45); ABG PO2 73 mmHg (83-108); ABG TCO2 29 mmol/L (19-24); Allen Test Performed? Yes
[2019-12-30 05:16] LABS: Basophils % (A) 0 %; Eosinophils % (A) 0 %; HCT 27.8 % (39.0-53.0); HGB 8.9 gm/dL (13.0-17.5); Lymphocytes # (A) 1.2 k/uL (1.0-4.8); Lymphocytes % (A) 8 %; MCH 32.6 pg (25.0-35.0); MCHC 32.1 g/dL (31.0-37.0); MCV 101.4 fL (80.0-100.0); Macrocytosis Slight; Mean Platelet Volume 7.8; Monocytes # (A) 0.8 k/uL (0-1.0); Monocytes % (A) 5 %; Neutrophils # (A) 12.5 k/uL (1.3-7.7); Neutrophils % (A) 85 %; Platelet Count 193 k/uL (150-450); RBC 2.75 m/uL (4.30-5.90); RDW 15.6 % (11.5-15.5); WBC 14.7 k/uL (3.8-10.6)
[2019-12-30 05:24] LABS: African American GFR (CKD) >90 (>60 ml/min/1.73 sqM); Anion Gap 3 mmol/L; Blood Urea Nitrogen 24 mg/dL (9-20); Calcium 8.5 mg/dL (8.4-10.2); Carbon Dioxide 27 mmol/L (22-30); Chloride 108 mmol/L (98-107); Glucose 106 mg/dL (74-99); Non-African American GFR(CKD) 88 (>60 ml/min/1.73 sqM); Potassium 3.7 mmol/L (3.5-5.1); Sodium 138 mmol/L (137-145)
[2019-12-30] MEDS ORDERED: POTASSIUM BICARBONATE/CIT AC 20 MEQ TABLET.EFF NG-TUBE SCH (06:00)
[2019-12-30 06:29] LABS: Glucose,Whole Blood 136 mg/dL (75-99)
[2019-12-30] MEDS: DILTIAZEM 125 MG in SODIUM CHLORIDE 0.9% 100 ML IV SCH (07:09)
[2019-12-30] MEDS: BUDESONIDE 1 MG/2 ML NEBU INHALATION SCH ×2 (07:11→18:55)
[2019-12-30] MEDS: FORMOTEROL FUMARATE 20 MCG/2 ML NEBU INHALATION SCH ×2 (07:11→18:55)
[2019-12-30] MEDS: IPRATROPIUM-ALBUTEROL 3 ML NEB INHALATION SCH ×4 (07:11→18:55)
--- NOTE | 2019-12-30 07:46 | XR ---
EXAMINATION TYPE: XR chest 1V portable DATE OF EXAM: 12/30/2019 COMPARISON: 12/29/2019 HISTORY: Tube placement TECHNIQUE: Single frontal view of the chest is obtained. FINDINGS: Biapical pleural thickening with calcification. PICC line tracheostomy tube stable. Bilate ral subsegmental consolidation small effusion. Heart size stable. Correlate for pulmonary arterial hy pertension. Diffuse COPD noted. IMPRESSION: Stable consolidation and pleural effusion superimposed on a background of COPD.
[2019-12-30] MEDS: SODIUM CHLORIDE 0.9% 1,000 ML IV SCH (08:27)
--- NOTE | 2019-12-30 10:13 | P.PN ---
Subjective Progress Note Date: 12/30/19 Principal diagnosis: Malnutrition Patient somewhat agitated on the ventilator. White blood cell count improved at 14.7. Tachycardia persists. Tolerating tube feeds now at goal of 47 mL per hour. Objective - Vital Signs Vital signs: Vital Signs Temp 98.0 F 12/30/19 08:00 Pulse 90 12/30/19 10:00 Resp 15 12/30/19 10:00 BP 134/65 12/30/19 10:00 Pulse Ox 100 12/30/19 10:00 Intake & Output 12/29/19 12/30/19 12/30/19 18:59 06:59 18:59 Intake Total 739 1124.917 409.833 Output Total 1650 1170 350 Balance -911 -45.083 59.833 Weight 71.9 kg Intake: IV 689 583 212 Normal Saline Pressure 39 33 12 Bag Sodium Chloride 0.9% 1, 650 550 200 000 ml @ 50 mls/hr IV . Q20H [facility] Rx#:[id number] Intake, IV Titration 123.917 9.833 Amount Diltiazem 125 mg In 73.917 9.833 Sodium Chloride 0.9% 100 ml @ 10 MG/HR 10 mls/hr IV .[id number] [facility] Rx#: [id number] Fluconazole in NaCl,Iso- 50 Osm 100 mg In Saline 1 50ml.bag @ 50 mls/hr IVPB Q24H [facility] Rx#:[id number] Tube Feeding 50 328 188 Other 90 Output: Urine 1650 1170 350 Other: Voiding Method Indwelling Catheter Indwelling Catheter ABP, PAP, CO, CI - Last Documented Arterial Blood Pressure 141/66 - Exam Abdomen: Soft, nondistended, mild tenderness around PEG tube - Labs CBC & Chem 7: 12/30/19 04:15 12/30/19 04:15 Labs: Abnormal Lab Results - Last 24 Hours (Table) 12/29/19 12/29/19 12/29/19 Range/Units 11:58 18:17 23:55 WBC (3.8-10.6) k/uL RBC (4.30-5.90) m/uL Hgb (13.0-17.5) gm/dL Hct (39.0-53.0) % MCV (80.0-100.0) fL RDW (11.5-15.5) % Neutrophils # (1.3-7.7) k/uL ABG pH (7.35-7.45) ABG pO2 (83-108) mmHg ABG HCO3 (21-25) mmol/L ABG Total CO2 (19-24) mmol/L Chloride (98-107) mmol/L BUN (9-20) mg/dL Glucose (74-99) mg/dL POC Glucose (mg/dL) 110 H 126 H 104 H (75-99) mg/dL 12/30/19 12/30/19 12/30/19 Range/Units 04:13 04:15 04:15 WBC 14.7 H (3.8-10.6) k/uL RBC 2.75 L (4.30-5.90) m/uL Hgb 8.9 L (13.0-17.5) gm/dL Hct 27.8 L (39.0-53.0) % MCV 101.4 H (80.0-100.0) fL RDW 15.6 H (11.5-15.5) % Neutrophils # 12.5 H (1.3-7.7) k/uL ABG pH 7.47 H (7.35-7.45) ABG pO2 73 L (83-108) mmHg ABG HCO3 28 H (21-25) mmol/L ABG Total CO2 29 H (19-24) mmol/L Chloride 108 H (98-107) mmol/L BUN 24 H (9-20) mg/dL Glucose 106 H (74-99) mg/dL POC Glucose (mg/dL) (75-99) mg/dL 12/30/19 Range/Units 06:27 WBC (3.8-10.6) k/uL RBC (4.30-5.90) m/uL Hgb (13.0-17.5) gm/dL Hct (39.0-53.0) % MCV (80.0-100.0) fL RDW (11.5-15.5) % Neutrophils # (1.3-7.7) k/uL ABG pH (7.35-7.45) ABG pO2 (83-108) mmHg ABG HCO3 (21-25) mmol/L ABG Total CO2 (19-24) mmol/L Chloride (98-107) mmol/L BUN (9-20) mg/dL Glucose (74-99) mg/dL POC Glucose (mg/dL) 136 H (75-99) mg/dL Assessment and Plan Plan: Continue tube feeds at goal. Continue wean from vent.
[2019-12-30] MEDS: methylPREDNISolone SOD SUCCI 40 MG/ML 1 ML VIAL IV SCH (10:16)
[2019-12-30] MEDS: PANTOPRAZOLE 40 MG/10 ML VIAL IVP SCH ×2 (10:16→21:21)
[2019-12-30] MEDS: CHLORHEXIDINE GLUCONATE 15 ML CUP MUCOUS MEM SCH ×2 (10:16→21:20)
[2019-12-30] MEDS: NICOTINE 14MG/24HR PATCH TRANSDERM SCH (10:16)
[2019-12-30] MEDS: METOPROLOL TARTRATE 50 MG TAB PO SCH (10:17)
[2019-12-30] MEDS: QUEtiapine 50 MG TAB PO SCH ×2 (10:17→21:20)
[2019-12-30] MEDS: CHOLECALCIFEROL 1,000 UNIT TAB PO SCH ×2 (10:17→21:19)
[2019-12-30] MEDS: ASPIRIN 81 MG PO SCH (10:17)
[2019-12-30] MEDS: POTASSIUM CHLORIDE ER 20 MEQ TAB.ER PO SCH (10:17)
[2019-12-30] MEDS: amLODIPine 5 MG TAB PO SCH ×2 (10:17→21:19)
[2019-12-30] MEDS: ATORVASTATIN 20 MG TAB PO SCH (10:17)
[2019-12-30] MEDS: cloNIDine HCL 0.1 MG TAB PO SCH ×3 (10:18→21:19)
--- NOTE | 2019-12-30 11:30 | P.PN ---
Subjective Progress Note Date: 12/30/19 On 12/30/2019, the active issue for this patient remains his encephalopathy. He wakes up, comfortable and ultimately becomes agitated and he becomes tachycardic and he flips into atrial fibrillation with rapid ventricular response mode. This occurred on several occasions. He was taken off the CPAP mode yesterday and the patient was placed back on assist control mode and is back on a rate of 14 with an FiO2 of 40% with tidal volume of 400 and a PEEP of 5. Chest x-ray is still unchanged with left basilar opacity which is probably an external shadow related to his underlying hematoma. He is completing a seven-day course of Zosyn for sedation that grew in his lungs. He is afebrile. Oral and orotracheal secretions are minimal at this point in time. The hematoma across his left chest is stable. The scrotal hematoma is also stable. Meanwhile, the patient had a stable hemoglobin. In terms of his mental status, the patient was given a total of 6 mg of Haldol, 2 mg almost every 1-2 hours. The patient will be started on Seroquel today. Mother the patient is alcoholic. His neurologic exam is nonfocal and he has been moving his all 4 extremities without any limitation. no neck stiffness. No fever or chills. No other significant events overnight. He was started on enteral feeding for nutrition support and he seems to be tolerating it well. In terms of his atrial fibrillation, the patient fell back into normal sinus rhythm for now. He has not been on anticoagulation based on the fact that he had developed hematomas with drop in hemoglobin. He remains in 2. restraints as the patient has a very valuable tracheostomy tube that needs to be protected as any form of extubation may cause significant airway compromise as the patient has a laryngeal tumor this causing significant narrowing of his upper airways. Objective - Vital Signs Vital signs: Vital Signs Temp 98.0 F 12/30/19 08:00 Pulse 77 12/30/19 11:10 Resp 14 12/30/19 11:00 BP 157/75 12/30/19 11:00 Pulse Ox 99 12/30/19 11:00 Intake & Output 12/29/19 12/30/19 12/30/19 18:59 06:59 18:59 Intake Total 739 1124.917 509.833 Output Total 1650 1170 400 Balance -911 -45.083 109.833 Weight 71.9 kg Intake: IV 689 583 265 Normal Saline Pressure 39 33 15 Bag Sodium Chloride 0.9% 1, 650 550 250 000 ml @ 50 mls/hr IV . Q20H [facility] Rx#:[id number] Intake, IV Titration 123.917 9.833 Amount Diltiazem 125 mg In 73.917 9.833 Sodium Chloride 0.9% 100 ml @ 10 MG/HR 10 mls/hr IV .[id number] [facility] Rx#: [id number] Fluconazole in NaCl,Iso- 50 Osm 100 mg In Saline 1 50ml.bag @ 50 mls/hr IVPB Q24H [facility] Rx#:[id number] Tube Feeding 50 328 235 Other 90 Output: Urine 1650 1170 400 Other: Voiding Method Indwelling Catheter Indwelling Catheter Indwelling Catheter ABP, PAP, CO, CI - Last Documented Arterial Blood Pressure 141/66 - Exam Gen. appearance the patient is calm comfortable the patient is sedated for now under the effect of Haldol and the patient is a tracheostomy to #8 Head exam was generally normal. There was no scleral icterus or corneal arcus. Mucous membranes were moist. Neck was supple and without jugular venous distension, thyromegaly, or carotid bruits. Carotids were easily palpable bilaterally. There was no adenopathy. There is some questionable noisy breathing during inspiration and guarded and neck area, and this obviously raises the concern for a stridor. Lungs sounds are diminished and there is diffuse expiratory wheezes throughout the lung his bilaterally along with prolongation of exhalation phase of breathing. Left chest hematoma and the hematomas extending in the lateral aspect of the left chest extending posteriorly and inferiorly. Please refer to the CAT scan findings. The CAT scan showed a stable hematoma over the left anterior chest area extending laterally. Cardiac exam revealed the PMI to be normally situated and sized. The rhythm was regular and no extrasystoles were noted during several minutes of auscultation. The first and second heart sounds were normal and physiologic splitting of the second heart sound was noted. There were no murmurs, rubs, clicks, or gallops. Abdominal exam revealed normal bowel sounds. The abdomen was soft, non-tender, and without masses, organomegaly, or appreciable enlargement of the abdominal aorta. The patient also has developed a stable scrotal hematoma and the Ronquillo catheter is in place. The patient has a PEG tube in his abdomen and the site is likely an intact for now. Examination of the extremities revealed easily palpable radial, femoral and pedal pulses. There was no cyanosis, clubbing or edema. Examination of the skin revealed no evidence of significant rashes, suspicious appearing nevi or other concerning lesions. Neurologically the patient is sedated currently under better effect of Haldol Currently is on 2. point restraints. He has significant motor weakness in all 4 extremities. No facial asymmetry. Pupils are equal and reactive to light. He is encephalopathic and genital, considered the possibility of an underlying alcoholic encephalopathy/delirium contributing to his altered mentation and agitation. - Labs CBC & Chem 7: 12/30/19 04:15 12/30/19 04:15 Labs: Abnormal Lab Results - Last 24 Hours (Table) 12/29/19 12/29/19 12/29/19 Range/Units 11:58 18:17 23:55 WBC (3.8-10.6) k/uL RBC (4.30-5.90) m/uL Hgb (13.0-17.5) gm/dL Hct (39.0-53.0) % MCV (80.0-100.0) fL RDW (11.5-15.5) % Neutrophils # (1.3-7.7) k/uL ABG pH (7.35-7.45) ABG pO2 (83-108) mmHg ABG HCO3 (21-25) mmol/L ABG Total CO2 (19-24) mmol/L Chloride (98-107) mmol/L BUN (9-20) mg/dL Glucose (74-99) mg/dL POC Glucose (mg/dL) 110 H 126 H 104 H (75-99) mg/dL 12/30/19 12/30/19 12/30/19 Range/Units 04:13 04:15 04:15 WBC 14.7 H (3.8-10.6) k/uL RBC 2.75 L (4.30-5.90) m/uL Hgb 8.9 L (13.0-17.5) gm/dL Hct 27.8 L (39.0-53.0) % MCV 101.4 H (80.0-100.0) fL RDW 15.6 H (11.5-15.5) % Neutrophils # 12.5 H (1.3-7.7) k/uL ABG pH 7.47 H (7.35-7.45) ABG pO2 73 L (83-108) mmHg ABG HCO3 28 H (21-25) mmol/L ABG Total CO2 29 H (19-24) mmol/L Chloride 108 H (98-107) mmol/L BUN 24 H (9-20) mg/dL Glucose 106 H (74-99) mg/dL POC Glucose (mg/dL) (75-99) mg/dL 12/30/19 Range/Units 06:27 WBC (3.8-10.6) k/uL RBC (4.30-5.90) m/uL Hgb (13.0-17.5) gm/dL Hct (39.0-53.0) % MCV (80.0-100.0) fL RDW (11.5-15.5) % Neutrophils # (1.3-7.7) k/uL ABG pH (7.35-7.45) ABG pO2 (83-108) mmHg ABG HCO3 (21-25) mmol/L ABG Total CO2 (19-24) mmol/L Chloride (98-107) mmol/L BUN (9-20) mg/dL Glucose (74-99) mg/dL POC Glucose (mg/dL) 136 H (75-99) mg/dL Assessment and Plan Plan: 1 acute respiratory failure due to upper airway obstruction secondary to 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 The patient is post tracheostomy tube insertion and the patient has a #[address] in [address] Noted the patient has a extremely narrow airway and his estimated airway due to the vocal cord tumor is probably less than 5 mm. As such this is a very valuable tracheostomy tube that needs to be protected. Currently on assist control mode of ventilation. The patient is post tracheostomy tube insertion. The patient also underwent a he remains on assist control mode of ventilation. Chest x-ray shows a left lower lobe opacity, probably an external hematoma causing this chest x-ray findings versus a left lower lobe pneumonia. He is currently on IV Zosyn. He has completed a seven-day course of Zosyn. He was treated for Serratia in his sputum. 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 The patient is post intubation. The patient is post tracheostomy tube insertion and secured airway currently he has a #[address] tube in place. 3 left lower lobe pneumonia/effusion with sputum showing Serratia the patient is currently on IV Zosyn 4 chest hematoma currently inactive and stable. 5 Anemia with a drop in the hemoglobin, currently stable hemoglobin of 8.9 6 pulmonary embolism which is questionable.. There is a questionable filling defect in the subsegmental right lower lobe pulmonary artery branch and the patient is currently on IV heparin. He has previous history of DVT in 2018 and he wasn't taking any form of anticoagulation. 8 hyponatremia recovered 9 history of DVT of the right lower extremity 2017 10 smoker 11 alcoholism, with ongoing encephalopathy, consider delirium 12 questionable liver cirrhosis based on CAT scan findings 13 abnormal troponin without any significant EKG changes or chest pain 14 paroxysmal atrial fibrillation CURRENTLY on metoprolol, without any anticoagulants. Cardiac rhythm is sinus for now. Plan Continue vent support. Note that this patient can be weaned at any point in t rc. His overall poor status is stable. He is tolerating CPAP trials. Nevertheless, based on his underlying encephalopathy and recurrent episodes of PAF, I opted to keep him on assist control mode of ventilation. He goes into atrial fibrillation once again small agitated and I think this is related to his underlying bleeding. Keep the patient off sedation, start the patient on Sinequan 50 mg by mouth twice a day. PTOT evaluation White cell count is improving and the white cell count is down to 14.7 Continue IV Zosyn and completed total of seven-day course and then discontinue Metoprolol 50 mg by mouth twice a day regarding his atrial fibrillation. He was also given a Cardizem drip for A. fib RVR which has been weaned off. I'm going to discontinue the IV Solu-Medrol Hemoglobin stable at 8.9 enteral feeding for nutritional support Monitor chest wall hematoma, stable Monitor scrotal hematoma, stable We'll continue to follow. No anticoagulation for now Condition is critical. I discussed the findings with the . We'll continue to follow up this patient in the ICU closely. . The evaluation was done and more than 30 minutes Time with Patient: Greater than 30
[2019-12-30] MEDS ORDERED: METOPROLOL TARTRATE 25 MG TAB PO STA (11:40)
[2019-12-30 11:50] LABS: Glucose,Whole Blood 155 mg/dL (75-99)
[2019-12-30] MEDS: MULTIVITAMINS, THERA 1 EACH TAB PO SCH (15:02)
[2019-12-30] MEDS: THIAMINE 100 MG TAB PO SCH (15:02)
[2019-12-30] MEDS: FOLIC ACID 1 MG TAB PO SCH (15:03)
[2019-12-30] MEDS: MORPHINE SULFATE 2 MG/ML SYRINGE IVP PRN (17:04)
--- NOTE | 2019-12-30 17:33 | PN ---
PROGRESS NOTE DATE OF SERVICE: 12/30/2019 This 64-year-old gentleman who was admitted with COPD acute exacerbation also had an upper airway obstruction. The patient also had a tracheostomy. Patient on mechanical ventilation. Weaning has been difficult because of the multiple medical issues including possible DTs and restlessness and as well as atrial fibrillation with fast ventricular rate. Currently the patient is on Cardizem drip. The patient is currently normal sinus rhythm. Patient is still tachycardic. Patient is being closely monitored at this time. The patient also has history of EtOH. Multiple consultants are following the patient closely. Chest x-ray today I personally reviewed showed some infiltrate in the left lower lobe. PAST MEDICAL HISTORY: Past medical history reviewed. REVIEW OF SYSTEMS: Could not be taken because the patient mechanically ventilated, sedated, intubated. MEDICATIONS: Reviewed and include: 1. Ventolin 2.5 q.i.d. p.r.n. 2. Norvasc 5 mg p.o. b.i.d. 3. Aspirin 81 mg. 4. Lipitor 20 mg. 5. Pulmicort 1 mg b.i.d. 6. Peridex. 7. Vitamin D3. 8. Catapres 0.1 t.i.d. 9. Cardizem drip. 10.Benadryl. 11.Fluconazole. 12.Folic acid. 13.Perforomist. 14.Haldol. 15.NovoLog. 16.Lopressor. 17.Multivitamins. 18.Habitrol 14 daily. 19.Zofran. 20.Protonix. 21.K-Dur. 22.Cepacol. 23.Vitamin B1. 24.Ultram. PHYSICAL EXAM: Patient is alert, oriented x3. Pulse is 71. Blood pressure 101/53, respirations 13, temperature 98.2. Pulse ox 100 percent on room air. HEENT: Conjunctivae normal. NECK: Tracheostomy. CARDIOVASCULAR: S1, S2 muffled. RESPIRATORY: Breath sounds diminished in the bases. A few bilateral scattered rhonchi and crackles. ABDOMEN: Soft, nontender. No mass palpable. LEGS no edema. No swelling. NERVOUS SYSTEM: The patient mechanically ventilated and sedated. LAB: WBC 14.3, hemoglobin is 8.7, MCV 101, sodium 130, potassium 3.7. ASSESSMENT: 1. Shortness of breath, possible chronic obstructive pulmonary disease acute exacerbation with left lower lobe pneumonia possibly gram-negative with acute hypoxic respiratory failure on mechanical ventilation, present on admission. 2. 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 3. Possible acute delirium tremens and tachycardia. 4. Atrial fibrillation with fast ventricular rate. 5. Serratia marcescens, Yodit albicans in the sputum. 6. Acute pulmonary embolism on the right side, present on admission. 7. Extensive significant hematoma of the left side of the chest and left body, left upper limb on anticoagulation because of that reason. 8. Anemia acute blood loss anemia secondary to hematoma. 9. Atrial fibrillation with fast ventricular rate. 10.Off anticoagulation currently. 11.Severe hyponatremia, possibly Syndrome of inappropriate antidiuretic hormone, present on admission, status post 3% saline. 12.Continued ongoing nicotine dependence. 13.Troponin 0.078 indeterminate, present on admission. 14.Hypertension. 15.Hyperlipidemia. 16.History of chronic liver disease. 17.History of gastroesophageal reflux disease. 18.History of nicotine dependence. 19.History of anxiety. 20.History EtOH. 21.Hypercalcemia. 22.FULL CODE. RECOMMENDATIONS AND DISCUSSION: Recommend to continue current medications, monitoring, management and symptomatic treatment. Continue with mechanical ventilation. Monitor closely with Cardiology. Cardizem drip. Patient is on Cardizem drip currently. We will continue to monitor. Otherwise, further weaning attempts per Dr. Tabares. Ativan may be used cautiously because of the resulting sedation. Otherwise, we will continue to monitor. The patient is started on clonidine already. The most recent chest x-ray noted. Multiple consultants are following the patient closely. The patient is also on PEG tube feeds. The patient is on broad-spectrum IV antibiotics also. Further recommendations to follow. MMODL / IJN: [id number] /
[2019-12-30 17:56] LABS: Glucose,Whole Blood 178 mg/dL (75-99)
[2019-12-30] MEDS: FLUCONAZOLE IN NACL,ISO-OSM 100 MG in SALINE 1 50ML.BAG IVPB SCH (20:24)
[2019-12-30] MEDS: METOPROLOL TARTRATE 25 MG TAB PO SCH (21:18)
[2019-12-30 23:53] LABS: Glucose,Whole Blood 168 mg/dL (75-99)
[2019-12-31] MEDS: INSULIN ASPART (NovoLOG) 100 UNIT/ML VIAL SQ SCH ×4 (00:11→18:51)
[2019-12-31] MEDS: MORPHINE SULFATE 2 MG/ML SYRINGE IVP PRN (00:11)
[2019-12-31] MEDS: PIPERACILLIN-TAZOBACTAM 3.375 GM in SODIUM CHLORIDE 0.9% 100 ML IVPB SCH ×4 (00:12→23:30)
[2019-12-31] MEDS: HALOPERIDOL LACTATE 5 MG/ML 1 ML VIAL IVP PRN ×4 (01:41→20:25)
[2019-12-31 04:23] LABS: ABG Base Excess 4.9 mmol/L; ABG HCO3 29 mmol/L (21-25); ABG Oxygen Saturation 98.9 % (94-97); ABG PCO2 42 mmHg (35-45); ABG PH 7.45 (7.35-7.45); ABG PO2 120 mmHg (83-108); ABG TCO2 30 mmol/L (19-24); Allen Test Performed? Yes
[2019-12-31 05:25] LABS: Basophils % (A) 0 %; Eosinophils % (A) 0 %; HCT 26.9 % (39.0-53.0); HGB 8.6 gm/dL (13.0-17.5); Hypochromasia Slight; Lymphocytes # (A) 0.7 k/uL (1.0-4.8); Lymphocytes % (A) 6 %; MCH 32.8 pg (25.0-35.0); MCHC 32.1 g/dL (31.0-37.0); MCV 102.1 fL (80.0-100.0); Macrocytosis Slight; Mean Platelet Volume 7.9; Monocytes # (A) 0.6 k/uL (0-1.0); Monocytes % (A) 5 %; Neutrophils # (A) 10.1 k/uL (1.3-7.7); Neutrophils % (A) 88 %; Platelet Count 159 k/uL (150-450); RBC 2.63 m/uL (4.30-5.90); RDW 15.2 % (11.5-15.5); WBC 11.5 k/uL (3.8-10.6)
[2019-12-31 05:36] LABS: ALT 34 U/L (4-49); AST 42 U/L (17-59); African American GFR (CKD) >90 (>60 ml/min/1.73 sqM); Albumin 2.5 g/dL (3.5-5.0); Alkaline Phosphatase 76 U/L (38-126); Anion Gap 0 mmol/L; Blood Urea Nitrogen 29 mg/dL (9-20); Calcium 8.6 mg/dL (8.4-10.2); Carbon Dioxide 29 mmol/L (22-30); Chloride 111 mmol/L (98-107); Glucose 118 mg/dL (74-99); Non-African American GFR(CKD) >90 (>60 ml/min/1.73 sqM); Sodium 140 mmol/L (137-145); Total Bilirubin 0.8 mg/dL (0.2-1.3); Total Protein 4.8 g/dL (6.3-8.2)
[2019-12-31 05:58] LABS: Glucose,Whole Blood 149 mg/dL (75-99)
[2019-12-31] MEDS: IPRATROPIUM-ALBUTEROL 3 ML NEB INHALATION SCH ×4 (07:30→19:07)
[2019-12-31] MEDS: BUDESONIDE 1 MG/2 ML NEBU INHALATION SCH ×2 (07:31→19:07)
[2019-12-31] MEDS: FORMOTEROL FUMARATE 20 MCG/2 ML NEBU INHALATION SCH ×2 (07:31→19:07)
--- NOTE | 2019-12-31 07:52 | PN ---
PROGRESS NOTE DATE OF THE PROGRESS NOTE: 12/27/2019 SUBJECTIVE: Vital signs are stable. The patient still remains attached to the ventilation machine. The nurses states that he is essentially receiving only minimal sedation. Objective examination of the tracheostomy site revealed it to be dry and the stay sutures (these will be removed on 12/30/2019). I do not see any signs of any infection. However, the patient, however, the patient does appear to be making a significant amount of mucus. ASSESSMENT: Status post urgent tracheostomy. Plan the patient's pathology report came back positive for all biopsies of the right and left true vocal cord for squamous for invasive squamous cell carcinoma. In addition to this, there was involvement at the anterior commissure of the larynx. I had planned on discussing this with the family, but no family members were around. I will see the patient again on 12/30/2019 at that time, removed the stay sutures and if any family members are around, then I will discuss this with him. Otherwise, this can certainly be done by the primary care doctor. CHELSEA / ALLEYN: [id number] /
--- NOTE | 2019-12-31 08:28 | PN ---
PROGRESS NOTE DATE OF THE PROGRESS NOTE: 12/30/19 SUBJECTIVE: Vital signs are stable. Patient still remains a titration of ventilation machine. The valve ventilation machine is still being assisted. Because the patient has become somewhat agitated, the nurse states that he has been placed on Haldol. In addition, there has been some issues with the inner cannula coming out and I advised the nurse that this is most likely due to the weight of the connectors from the ventilation machine actually twisting and unlocking the inner cannula. OBJECTIVE: Clinical examination of the tracheostomy wound appears to be healing quite nicely and the incision has just about completely closed up around the tracheostomy tube. There is no infection, bleeding, swelling or redness. The 2 4-0 nylon sutures were cut and removed from the right and left side respectively. There is no evidence of any infection at the at the suture site either. The patient still continues to put out a significant amount of mucus, most likely secondary to his underlying chronic lung disease from his years of heavy smoking. ASSESSMENT: Status post urgent tracheostomy. 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 At this point, once he is medically okay, the recommended course of treatment would be radiation. However, because of the patient's nutritional state it would be left up to the radiation or any radiation specialist at [facility] to determine when he would be a candidate. I would recommend at some point Dr. Coelho be consulted in this case. MMJONAH / SRAVANTHI: [id number] /
[2019-12-31] MEDS: CHLORHEXIDINE GLUCONATE 15 ML CUP MUCOUS MEM SCH ×2 (08:43→20:26)
[2019-12-31] MEDS: amLODIPine 5 MG TAB PO SCH ×2 (08:43→20:26)
[2019-12-31] MEDS: CHOLECALCIFEROL 1,000 UNIT TAB PO SCH ×2 (08:43→20:26)
[2019-12-31] MEDS: cloNIDine HCL 0.1 MG TAB PO SCH ×3 (08:43→20:26)
[2019-12-31] MEDS: ATORVASTATIN 20 MG TAB PO SCH (08:43)
[2019-12-31] MEDS: METOPROLOL TARTRATE 25 MG TAB PO SCH ×2 (08:43→20:25)
[2019-12-31] MEDS: PANTOPRAZOLE 40 MG/10 ML VIAL IVP SCH ×2 (08:43→20:26)
[2019-12-31] MEDS: NICOTINE 14MG/24HR PATCH TRANSDERM SCH (08:44)
[2019-12-31] MEDS: SODIUM CHLORIDE 0.9% 1,000 ML IV SCH ×2 (08:44→23:30)
[2019-12-31] MEDS: POTASSIUM CHLORIDE ER 20 MEQ TAB.ER PO SCH (08:44)
[2019-12-31] MEDS: ASPIRIN 81 MG PO SCH (08:44)
[2019-12-31] MEDS: QUEtiapine 50 MG TAB PO SCH ×2 (08:44→20:26)
--- NOTE | 2019-12-31 09:26 | CDI ---
Documentation Clarification Form Date: 12/31/2019 08:58:58 AM From: Radha RodasBenedictOBI main, CCDS Admit Date: 12/21/2019 05:48:00 PM Patient Name: Chris Laurent Visit Number: [id number] Discharge Date: ATTENTION: The Clinical Documentation Specialists (CDI) and [facility] Coding Staff appreciate your assistance in clarifying documentation. Please respond to the clarification below the line at the bottom and electronically sign. The CDI & [facility] Coding staff will review the response and follow-up if needed. Please note: Queries are made part of the Legal Health Record. If you have any questions, please contact the author of this message via ITS. Dr. Socrates Coelho: Per the 12/27 OR note: Preop & Postop Diagnosis is "Malnutrtion", nos. An EGD with PEG tube placement was performed. History/Risk Factors: Hypertension, Hyperlipidemia, Liver disease, GERD, smoker. 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 Patient had a tracheostomy done on 12/23. Labs 12/21: Total protein 6.4, Albumin 3.5. 12/24: Total Protein 4.4*, Albumin 2.2*. 12/25: Total Protein 4.7*, Albumin 2.4*. Current BMI as of 12/30: 22.4 Dietitian Consult 12/24: Poor nutritional intake, 0% consumed, Ht 5 ft 11 in. BMI: 22.5. Inadequate energy intake, intubated & NPO. Meeting 75% nutritional goals. Mild weakness. Treatment: Intubated on 12/22, Flexible bronchosocpy with biopsies on 12/22. Tracheostomy done on 12/23. EGD w/PEG tube placement 12/27. 12/20: IV Heparin drip, IV Solumedrol, INH Pulmicort,, Habitrol patch, IV MagSulf & IV fluid rate 75. Daily weights, I&O, NPO on vent since 12/22 in restraints, gastric feeds & po meds via PEG. In your professional opinion, can you please clarify if these findings signify one of the following conditions? Mild Protein-Calorie Malnutrition Moderate Protein-Calorie Malnutrition Other condition, please specify Unable to determine (Last Revision: April 2019) Defer to Dr. Martin and primary service MTDD
--- NOTE | 2019-12-31 11:31 | PN ---
PROGRESS NOTE This patient is status post stroke yesterday because of the vocal cord tumor. The patient has a paroxysmal atrial fibrillation. Patient most of the time remains in normal sinus rhythm with intermittent episodes of atrial flutter-fibrillation. Blood pressure is 155/95 mmHg. First and second heart sounds are heard. Lungs are clear to auscultation and percussion. We will continue patient on the current dose of metoprolol. MMODL / IJN: [id number] /
[2019-12-31 11:51] LABS: Glucose,Whole Blood 143 mg/dL (75-99)
--- NOTE | 2019-12-31 12:07 | P.PN ---
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 And secondary to acute exacerbation of COPD. On 12/30/2019, the active issue for this patient remains his encephalopathy. He wakes up, comfortable and ultimately becomes agitated and he becomes tachycardic and he flips into atrial fibrillation with rapid ventricular response mode. This occurred on several occasions. He was taken off the CPAP mode yesterday and the patient was placed back on assist control mode and is back on a rate of 14 with an FiO2 of 40% with tidal volume of 400 and a PEEP of 5. Chest x-ray is still unchanged with left basilar opacity which is probably an external shadow related to his underlying hematoma. He is completing a seven-day course of Zosyn for sedation that grew in his lungs. He is afebrile. Oral and orotracheal secretions are minimal at this point in time. The hematoma across his left chest is stable. The scrotal hematoma is also stable. Meanwhile, the patient had a stable hemoglobin. In terms of his mental status, the patient was given a total of 6 mg of Haldol, 2 mg almost every 1-2 hours. The patient will be started on Seroquel today. Mother the patient is alcoholic. His neurologic exam is nonfocal and he has been moving his all 4 extremities without any limitation. no neck stiffness. No fever or chills. No other significant events overnight. He was started on enteral feeding for nutrition support and he seems to be tolerating it well. In terms of his atrial fibrillation, the patient fell back into normal sinus rhythm for now. He has not been on anticoagulation based on the fact that he had developed hematomas with drop in hemoglobin. He remains in 2. restraints as the patient has a very valuable tracheostomy tube that needs to be protected as any form of extubation may cause significant airway compromise as the patient has a laryngeal tumor this causing significant narrowing of his upper airways. Reevaluated today on 12/31/19, patient remains in the ICU, intubated, mechanically ventilated. He is on assist control rate of 14, FiO2 of 40%, tidal volume of 400 and PEEP of 5. Patient is not requiring any pressors, he is hemodynamically stable, not requiring any sedation, he is off propofol, seems to be awake and responsive, follows simple instructions, hence I switch the patient to pressure support of 8 and CPAP, and I plan to switch him to a trach collar if he continues to do well. In the meantime I have recommended radiation oncology evaluation to start possibly radiation treatment on his vocal cords malignancy. Labs today were reviewed including ABG showing a pO2 of 120 pCO2 of 42 pH of 7.45. CBC is relatively normal hemoglobin is 8.6. A letter lites are normal. Renal profile is normal Objective - Vital Signs Vital signs: Vital Signs Temp 98.6 F 12/31/19 08:00 Pulse 69 12/31/19 11:45 Resp 17 12/31/19 11:00 BP 131/72 12/31/19 11:00 Pulse Ox 97 12/31/19 11:00 Intake & Output 12/30/19 12/31/19 12/31/19 18:59 06:59 18:59 Intake Total 5749.659 7710 660 Output Total 935 900 375 Balance 468.833 443 285 Weight 72.8 kg 72.8 kg Intake: IV 736 736 365 Normal Saline Pressure 36 36 15 Bag Sodium Chloride 0.9% 1, 600 600 250 000 ml @ 50 mls/hr IV . Q20H [facility] Rx#:[id number] Zosyn 100 100 100 Intake, IV Titration 9.833 Amount Diltiazem 125 mg In 9.833 Sodium Chloride 0.9% 100 ml @ 10 MG/HR 10 mls/hr IV .[id number] [facility] Rx#: [id number] Tube Feeding 658 517 235 Other 90 60 Output: Urine 935 900 375 Other: Voiding Method Indwelling Catheter Indwelling Catheter Indwelling Catheter ABP, PAP, CO, CI - Last Documented Arterial Blood Pressure 141/66 - Exam Physical Exam: Revealed 64-year-old white male on mechanical ventilation. Head: Atraumatic, normocephalic, tracheostomy is intact. HEENT:[Neck is supple.] [No neck masses.] [No thyromegaly.] [No JVD.] PERRLA, EOMI, no icterus. Chest: [Clear throughout, no crackles, no rhonchi, no wheezes.] Cardiac Exam: [Normal S1 and S2, no S3 gallop, no murmur.] Abdomen: [Soft, nontender, no megaly, no rebound, no guarding, normal bowel sounds.] Extremities: [No clubbing, no edema, no cyanosis.] Neurological Exam: [No focal neurologic deficit.] Alert and oriented 3, no gross focal neurologic deficits. Psychiatric: Normal mood, affect and normal mental status examination. Skin: No rashes. Lymphatics: No lymphadenopathy. - Labs CBC & Chem 7: 12/31/19 05:06 12/31/19 05:06 Labs: Abnormal Lab Results - Last 24 Hours (Table) 12/30/19 12/30/19 12/31/19 Range/Units 17:55 23:50 04:22 WBC (3.8-10.6) k/uL RBC (4.30-5.90) m/uL Hgb (13.0-17.5) gm/dL Hct (39.0-53.0) % MCV (80.0-100.0) fL Neutrophils # (1.3-7.7) k/uL Lymphocytes # (1.0-4.8) k/uL ABG pO2 120 H (83-108) mmHg ABG HCO3 29 H (21-25) mmol/L ABG Total CO2 30 H (19-24) mmol/L ABG O2 Saturation 98.9 H (94-97) % Chloride (98-107) mmol/L BUN (9-20) mg/dL Glucose (74-99) mg/dL POC Glucose (mg/dL) 178 H 168 H (75-99) mg/dL Total Protein (6.3-8.2) g/dL Albumin (3.5-5.0) g/dL 12/31/19 12/31/19 12/31/19 Range/Units 05:06 05:06 05:56 WBC 11.5 H (3.8-10.6) k/uL RBC 2.63 L (4.30-5.90) m/uL Hgb 8.6 L (13.0-17.5) gm/dL Hct 26.9 L (39.0-53.0) % MCV 102.1 H (80.0-100.0) fL Neutrophils # 10.1 H (1.3-7.7) k/uL Lymphocytes # 0.7 L (1.0-4.8) k/uL ABG pO2 (83-108) mmHg ABG HCO3 (21-25) mmol/L ABG Total CO2 (19-24) mmol/L ABG O2 Saturation (94-97) % Chloride 111 H (98-107) mmol/L BUN 29 H (9-20) mg/dL Glucose 118 H (74-99) mg/dL POC Glucose (mg/dL) 149 H (75-99) mg/dL Total Protein 4.8 L (6.3-8.2) g/dL Albumin 2.5 L (3.5-5.0) g/dL 12/31/19 Range/Units 11:49 WBC (3.8-10.6) k/uL RBC (4.30-5.90) m/uL Hgb (13.0-17.5) gm/dL Hct (39.0-53.0) % MCV (80.0-100.0) fL Neutrophils # (1.3-7.7) k/uL Lymphocytes # (1.0-4.8) k/uL ABG pO2 (83-108) mmHg ABG HCO3 (21-25) mmol/L ABG Total CO2 (19-24) mmol/L ABG O2 Saturation (94-97) % Chloride (98-107) mmol/L BUN (9-20) mg/dL Glucose (74-99) mg/dL POC Glucose (mg/dL) 143 H (75-99) mg/dL Total Protein (6.3-8.2) g/dL Albumin (3.5-5.0) g/dL Assessment and Plan Assessment: Impression: Acute hypoxic respiratory failure secondary to 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 Left lower lobe pneumonia secondary to Serratia marcescens, remains on IV Zosyn. Chest hematoma, currently inactive. Pulmonary embolism history. Questionable filling defect in the subsegmental right lower lobe pulmonary artery branch, History of deep vein thromboses in 2018. Tobacco dependence syndrome History of alcoholism, remains on the protocol. Questionable liver cirrhosis as noted on CT of the chest Paroxysmal atrial fibrillation Recommendation: Continue ventilatory support. However will try pressure support of 8 and CPAP, and possibly switch to trach collar. Consider trial of weaning with pressure support and possibly trach collar. Continue bronchodilators. Continue antibiotics. Continue metoprolol. Continue enteral feeding via PEG tube. Monitor chest wall hematoma and scrotal hematoma both are stable. Consult radiation oncology. Continue to hold anticoagulation therapy. We will continue to follow. Critical care time is 35 minutes Time with Patient: Greater than 30
[2019-12-31] MEDS: THIAMINE 100 MG TAB PO SCH (12:09)
[2019-12-31] MEDS: MULTIVITAMINS, THERA 1 EACH TAB PO SCH (12:09)
[2019-12-31] MEDS: FOLIC ACID 1 MG TAB PO SCH (12:09)
--- NOTE | 2019-12-31 13:06 | P.PN ---
Subjective Progress Note Date: 12/31/19 CHIEF COMPLAINT: PEG tube insertion HISTORY OF PRESENT ILLNESS: Patient is s/p PEG tube insertion. He is tolerating tube feeds per nursing. PHYSICAL EXAM: VITAL SIGNS: Reviewed. GENERAL: Well-developed in no acute distress. HEENT: Trach noted. No sclera icterus. Extraocular movements grossly intact. Moist buccal mucosa. Head is normocephalic. ABDOMEN: Soft. Nondistended. Nontender. PEG tube noted. NEUROLOGIC: Aware and alert. Cranial nerves II through XII grossly intact. ASSESSMENT: 1. Laryngeal mass PLAN: Continue tube feedings as tolerated We will follow on an as-needed basis. Please call with questions or concerns Nurse practitioner note has been reviewed by physician. Signing provider agrees with the documented findings, assessment, and plan of care. Objective - Vital Signs Vital signs: Vital Signs Temp 98.6 F 12/31/19 08:00 Pulse 69 12/31/19 11:45 Resp 17 12/31/19 11:00 BP 131/72 12/31/19 11:00 Pulse Ox 97 12/31/19 11:00 Intake & Output 12/30/19 12/31/19 12/31/19 18:59 06:59 18:59 Intake Total 2240.923 6904 660 Output Total 935 900 375 Balance 468.833 443 285 Weight 72.8 kg 72.8 kg Intake: IV 736 736 365 Normal Saline Pressure 36 36 15 Bag Sodium Chloride 0.9% 1, 600 600 250 000 ml @ 50 mls/hr IV . Q20H [facility] Rx#:[id number] Zosyn 100 100 100 Intake, IV Titration 9.833 Amount Diltiazem 125 mg In 9.833 Sodium Chloride 0.9% 100 ml @ 10 MG/HR 10 mls/hr IV .[id number] [facility] Rx#: [id number] Tube Feeding 658 517 235 Other 90 60 Output: Urine 935 900 375 Other: Voiding Method Indwelling Catheter Indwelling Catheter Indwelling Catheter ABP, PAP, CO, CI - Last Documented Arterial Blood Pressure 141/66 - Labs CBC & Chem 7: 12/31/19 05:06 12/31/19 05:06 Labs: Abnormal Lab Results - Last 24 Hours (Table) 12/30/19 12/30/19 12/31/19 Range/Units 17:55 23:50 04:22 WBC (3.8-10.6) k/uL RBC (4.30-5.90) m/uL Hgb (13.0-17.5) gm/dL Hct (39.0-53.0) % MCV (80.0-100.0) fL Neutrophils # (1.3-7.7) k/uL Lymphocytes # (1.0-4.8) k/uL ABG pO2 120 H (83-108) mmHg ABG HCO3 29 H (21-25) mmol/L ABG Total CO2 30 H (19-24) mmol/L ABG O2 Saturation 98.9 H (94-97) % Chloride (98-107) mmol/L BUN (9-20) mg/dL Glucose (74-99) mg/dL POC Glucose (mg/dL) 178 H 168 H (75-99) mg/dL Total Protein (6.3-8.2) g/dL Albumin (3.5-5.0) g/dL 12/31/19 12/31/19 12/31/19 Range/Units 05:06 05:06 05:56 WBC 11.5 H (3.8-10.6) k/uL RBC 2.63 L (4.30-5.90) m/uL Hgb 8.6 L (13.0-17.5) gm/dL Hct 26.9 L (39.0-53.0) % MCV 102.1 H (80.0-100.0) fL Neutrophils # 10.1 H (1.3-7.7) k/uL Lymphocytes # 0.7 L (1.0-4.8) k/uL ABG pO2 (83-108) mmHg ABG HCO3 (21-25) mmol/L ABG Total CO2 (19-24) mmol/L ABG O2 Saturation (94-97) % Chloride 111 H (98-107) mmol/L BUN 29 H (9-20) mg/dL Glucose 118 H (74-99) mg/dL POC Glucose (mg/dL) 149 H (75-99) mg/dL Total Protein 4.8 L (6.3-8.2) g/dL Albumin 2.5 L (3.5-5.0) g/dL 03/16/20 Range/Units 11:49 WBC (3.8-10.6) k/uL RBC (4.30-5.90) m/uL Hgb (13.0-17.5) gm/dL Hct (39.0-53.0) % MCV (80.0-100.0) fL Neutrophils # (1.3-7.7) k/uL Lymphocytes # (1.0-4.8) k/uL ABG pO2 (83-108) mmHg ABG HCO3 (21-25) mmol/L ABG Total CO2 (19-24) mmol/L ABG O2 Saturation (94-97) % Chloride (98-107) mmol/L BUN (9-20) mg/dL Glucose (74-99) mg/dL POC Glucose (mg/dL) 143 H (75-99) mg/dL Total Protein (6.3-8.2) g/dL Albumin (3.5-5.0) g/dL
[2019-12-31 18:43] LABS: Glucose,Whole Blood 145 mg/dL (75-99)
[2019-12-31] MEDS: METOPROLOL TARTRATE 5 MG/5 ML VIAL IVP PRN (18:51)
--- NOTE | 2019-12-31 19:58 | PN ---
PROGRESS NOTE DATE OF SERVICE: 12/31/2019 This 64-year-old gentleman admitted with shortness of breath with COPD, acute exacerbation, pneumonia as well as upper airway obstruction was extubated and the patient had tracheostomy. The patient cannot give a coherent history. The patient is still confused. Multiple consultants are following the patient closely. The biopsy report is noted. ENT is following the patient closely as well as Surgery. Patient had tracheostomy and PEG tube placement also. No chest pain. No palpitations. Past medical history reviewed. Review of systems could not be taken at this time. CURRENT MEDICATIONS: Reviewed. They include: 1. Ventolin 2.5 q.i.d. p.r.n. 2. Norvasc 5 mg b.i.d. 3. Aspirin. 4. Ellipta. 5. Pulmicort 1 mg b.i.d. 6. Peridex. 7. Vitamin D3. 8. Catapres t.i.d. 9. Fluconazole. 10.Folic acid. 11.Perforomist. 12.Haldol. 13.NovoLog. 14.Lopressor. 15.Multivitamins. 16.Narcan. 17.Habitrol 14. 18.Zosyn 3.375 IV q.8. 19.Seroquel. 20.Ultram. PHYSICAL EXAMINATION: Patient is stuporous. Pulse is 109, blood pressure 114/57, respiration 19, temperature 98.2, pulse ox 99% on 40% trach collar. HEENT: Conjunctivae normal. Oral mucosa moist. NECK: No jugular venous distention. No carotid bruit. No lymph node enlargement. Tracheostomy. CARDIOVASCULAR SYSTEM: S1, S2 muffled. RESPIRATORY SYSTEM: Breath sounds diminished at the bases. A few scattered rhonchi and crackles. ABDOMEN: Soft. PEG tube in situ. LEGS: No edema. No swelling. NERVOUS SYSTEM: Diffusely weak. LABS: WBC 11.5, hemoglobin is 8.6. Otherwise sodium 140, potassium 4. Accu-Cheks noted. Sputum culture is Serratia marcescens, Yodit albicans. ASSESSMENT: 1. Shortness of breath with possible chronic obstructive pulmonary disease, acute exacerbation, with acute left lower pneumonia, possibly Gram-negative with acute hypoxic respiratory failure, status post mechanical ventilation, present on admission. 2. Upper airway obstruction secondary to possible vocal cord laryngeal tumor with invasive moderate diffuse squamous cell carcinoma, status post tracheostomy with biopsy, causing upper respiratory obstruction. 3. Possible acute delirium tremens and tachycardia and alcohol withdrawal. 4. Atrial fibrillation with a fast ventricular rate. 5. Serratia marcescens, Yodit albicans in the sputum. 6. Acute pulmonary embolism on the right side, present on admission. Off anticoagulation at this time. 7. Extensive significant hematoma in the left side of the chest, left body wall, as well as left upper chest, not on anticoagulation because of that reason. 8. Anemia; acute blood loss anemia secondary to hematoma as described above. 9. Off anticoagulation currently. 10.Severe hyponatremia, possibly syndrome of inappropriate antidiuretic hormone, status post 3% saline. 11.Continued ongoing nicotine dependence. 12.Troponin 0.078, indeterminate. 13.Hypertension. 14.Hyperlipidemia. 15.History of chronic liver disease. 16.History of gastroesophageal reflux disease. 17.History of nicotine dependence. 18.History of anxiety. 19.History of ETOH. 20.Hypercalcemia. 21.FULL CODE. RECOMMENDATIONS AND DISCUSSION: In this 64-year-old gentleman who presented with multiple complex medical issues, we will monitor the patient closely, continue the current medications, continue with the bronchodilators, continue with the antibiotics and antifungals. Follow the cultures. Continue to follow with multiple consultants, as mentioned earlier. Overall prognosis is extremely guarded because at this time the patient also had some change in mental status. Hopefully we will be able to extubate the patient. Arrange followups as an outpatient regarding the multiple complex medical issues as listed above. Hematology/Oncology is also being consulted. Further recommendations to follow. Will closely follow. MMODL / IJN: [id number] / JESSEE
[2019-12-31] MEDS: FLUCONAZOLE IN NACL,ISO-OSM 100 MG in SALINE 1 50ML.BAG IVPB SCH (20:26)
--- NOTE | 2019-12-31 23:26 | PN ---
PROGRESS NOTE DATE OF THE PROGRESS NOTE: 12/31/2019 SUBJECTIVE: Vital signs stable. The patient is resting well and the nursing staff is in the process of converting the patient to blow-by on the ventilator. The patient is currently being weaned off the CPAP. OBJECTIVE: The tracheostomy tube is intact and clean. The tracheostomy wound site is healing nicely and also been also is clean with no drainage around the tube. No erythema. No swelling. No tenderness. The stay sutures have been removed. The patient still continues to produce a significant amount of mucus. Remainder of the physical exam is unremarkable. ASSESSMENT: Status post emergent tracheostomy with suspension microlaryngoscopy and positive biopsies of the right and left true vocal cords for invasive squamous cell carcinoma. PLAN: As noted before, the patient's biopsy results were positive for invasive squamous cell carcinoma of both true vocal cords. I will try and contact the patient's to discuss with her the patient's biopsy results and his possible options with respect to radiation chemotherapy, et cetera. I will continue to follow this patient with you. MMODL / IJN: [id number] /
[2019-12-31] MEDS: ALBUTEROL NEBULIZED 2.5 MG/3 ML INHALATION PRN (23:54)
[2020-01-01] MEDS: INSULIN ASPART (NovoLOG) 100 UNIT/ML VIAL SQ SCH ×4 (00:59→18:12)
[2020-01-01] MEDS: HALOPERIDOL LACTATE 5 MG/ML 1 ML VIAL IVP PRN ×2 (03:00→21:23)
[2020-01-01] MEDS: ALBUTEROL NEBULIZED 2.5 MG/3 ML INHALATION PRN (03:17)
[2020-01-01 05:09] LABS: Basophils % (A) 0 %; Eosinophils # (A) 0.1 k/uL (0-0.7); Eosinophils % (A) 0 %; HCT 26.7 % (39.0-53.0); HGB 8.8 gm/dL (13.0-17.5); Lymphocytes # (A) 1.3 k/uL (1.0-4.8); Lymphocytes % (A) 10 %; MCH 33.3 pg (25.0-35.0); MCHC 32.9 g/dL (31.0-37.0); MCV 101.2 fL (80.0-100.0); Macrocytosis Slight; Mean Platelet Volume 9.2; Monocytes # (A) 0.7 k/uL (0-1.0); Monocytes % (A) 5 %; Neutrophils # (A) 11.3 k/uL (1.3-7.7); Neutrophils % (A) 84 %; Platelet Count 151 k/uL (150-450); RBC 2.64 m/uL (4.30-5.90); RDW 15.1 % (11.5-15.5); WBC 13.5 k/uL (3.8-10.6)
[2020-01-01 05:20] LABS: African American GFR (CKD) >90 (>60 ml/min/1.73 sqM); Anion Gap 1 mmol/L; Blood Urea Nitrogen 27 mg/dL (9-20); Calcium 8.4 mg/dL (8.4-10.2); Carbon Dioxide 29 mmol/L (22-30); Chloride 111 mmol/L (98-107); Glucose 111 mg/dL (74-99); Non-African American GFR(CKD) >90 (>60 ml/min/1.73 sqM); Potassium 3.5 mmol/L (3.5-5.1); Sodium 141 mmol/L (137-145)
[2020-01-01] MEDS: IPRATROPIUM-ALBUTEROL 3 ML NEB INHALATION SCH ×4 (08:11→21:35)
[2020-01-01] MEDS: FORMOTEROL FUMARATE 20 MCG/2 ML NEBU INHALATION SCH ×2 (08:11→21:35)
[2020-01-01] MEDS: BUDESONIDE 1 MG/2 ML NEBU INHALATION SCH ×2 (08:11→21:35)
--- NOTE | 2020-01-01 08:12 | XR ---
EXAMINATION TYPE: XR chest 1V DATE OF EXAM: 01/01/2020 COMPARISON: Prior chest 12/30/2019 HISTORY: Shortness of breath TECHNIQUE: Single frontal view of the chest is obtained. FINDINGS: Findings are similar to prior exam. Patient is rotated. IMPRESSION: No significant interval change. Correlate for pneumonia, effusion.
--- NOTE | 2020-01-01 09:00 | CDI ---
Documentation Clarification Form Date: 01/01/2020 08:21:49 AM From: Radha RodasBenedictOBI main, CCDS Admit Date: 12/21/2019 05:48:00 PM Patient Name: Chris Laurent Visit Number: [id number] Discharge Date: ATTENTION: The Clinical Documentation Specialists (CDI) and [facility] Coding Staff appreciate your assistance in clarifying documentation. Please respond to the clarification below the line at the bottom and electronically sign. The CDI & [facility] Coding staff will review the response and follow-up if needed. Please note: Queries are made part of the Legal Health Record. If you have any questions, please contact the author of this message via ITS. Dr. Nima Walsh: The cause of the patient's encephalopathy and/or altered mental status is not documented: Per the 12/26 - 12/29 Pulmonary/Critical Care Progress Notes: "Alcoholism, with ongoing encephalopathy, consider delirium." Per the 12/26 Surgery Progress Note: "Unable to obtain thorough review of systems secondary to altered mental status." Per the 12/29 Pulmonary Progress Note: "He is encephalopathic, considered the possibility of an underlying alcoholic encephalopathy/delirium contributing to his altered mentation and agitation. Mother is an alcoholic." Per the 12/30 Attending Progress Note: "Prognosis: is extremely guarded because at this time the patient also had some change in mental status." History/Risk Factors: COPD, Hypertension, Hyperlipidemia, Liver Disease, DVT, PE, GERD, Anxiety, smoker 1ppd, Chronic alcohol intake, possibly up to 10 beers daily. Clinical Indicators: The patient presented to [facility] on 12/20 with cough and sputum, given steroids & bronchodilators previously by PCP. CT angio: small PE right lower segment. Also had change in voice & stridor. Transferred to [facility] with acute exacerbation COPD & acute purulent tracheobronchitis & PE. Diagnosed with an obstructing vocal cord tumor, positive for squamous cell carcinoma per bronchoscopy & biopsy this admission. VS: RR 12/20 28 - 31. BP 12/20: 145/83, 12/22 185/90^ & 86/54*. PO 12/20: 96 2Lnc - 98 3Lnc, 12/22: 88 15% nrb, intubated/vent on 12/22, tracheostomy on 12/23. Remains on vent. Sputum Culture 12/22: Serratia marcescens, Yodit albicans. 12/21 LAB: WBC 18.6^, Neut 16.5^, APTT >200.0^^, Na 119, K 3.4*, Cl 83*, Gluc 179^, Trop 0.070^^. 12/28 LAB: WBC 17.5^, Hgb 9.1*, Neut 14.8^, HCO3 26^, T CO2 27^, O2 sat 98.5^, Cl 108^, BUN 23^, Gluc 110^. 12/29 Blood gas: pH 7.47^, pO2 73*, HCO3 28^, Total CO2 29^. Treatment 12/20: IV Heparin drip, IV Solumedrol, O2 2-3Lnc, INH: Pulmicort, Perforomist, IV MagSulfate 12/21: Vit B1, IV MagSulfate, IV Zosyn, IV Cardizem for Atrial Fibrillation, IV MS, IV fluid bolus 1,000 mls @ 999 mls/hr. 12/28 IV Haldol 2 mg x2, remains on vent as of 12/31. In your professional opinion, can you please clarify the specific type of Encephalopathy, if known? Anoxic Encephalopathy Hypertensive Encephalopathy Metabolic Encephalopathy Septic Encephalopathy Toxic Encephalopathy Hepatic Encephalopathy, if indicated, please clarify: o Indicate whether acute, sub-acute or chronic? o Causal Condition: Alcoholism, Hepatitis, other disease process? Other, please specify Unable to determine (Last Revision: January 2018) Metabolic Encephalopathy MTDD
[2020-01-01] MEDS: NICOTINE 14MG/24HR PATCH TRANSDERM SCH (09:12)
[2020-01-01] MEDS: ATORVASTATIN 20 MG TAB PO SCH (09:12)
[2020-01-01] MEDS: cloNIDine HCL 0.1 MG TAB PO SCH ×3 (09:12→21:13)
[2020-01-01] MEDS: CHOLECALCIFEROL 1,000 UNIT TAB PO SCH ×2 (09:12→21:13)
[2020-01-01] MEDS: QUEtiapine 50 MG TAB PO SCH ×2 (09:12→21:13)
[2020-01-01] MEDS: METOPROLOL TARTRATE 25 MG TAB PO SCH ×2 (09:12→21:13)
[2020-01-01] MEDS: CHLORHEXIDINE GLUCONATE 15 ML CUP MUCOUS MEM SCH ×2 (09:12→21:13)
[2020-01-01] MEDS: amLODIPine 5 MG TAB PO SCH ×2 (09:12→21:13)
[2020-01-01] MEDS: PIPERACILLIN-TAZOBACTAM 3.375 GM in SODIUM CHLORIDE 0.9% 100 ML IVPB SCH ×2 (09:12→15:21)
[2020-01-01] MEDS: ASPIRIN 81 MG PO SCH (09:12)
[2020-01-01] MEDS: POTASSIUM BICARBONATE/CIT AC 20 MEQ TABLET.EFF NG-TUBE SCH ×2 (09:13→09:58)
[2020-01-01] MEDS: PANTOPRAZOLE 40 MG/10 ML VIAL IVP SCH ×2 (09:13→21:13)
--- NOTE | 2020-01-01 09:22 | CDI ---
Documentation Clarification Form Date: 01/01/2020 09:01:00 AM From: Radha BenedictOBI main, CCDS Admit Date: 12/21/2019 05:48:00 PM Patient Name: Chris Laurent Visit Number: [id number] Discharge Date: ATTENTION: The Clinical Documentation Specialists (CDI) and [facility] Coding Staff appreciate your assistance in clarifying documentation. Please respond to the clarification below the line at the bottom and electronically sign. The CDI & [facility] Coding staff will review the response and follow-up if needed. Please note: Queries are made part of the Legal Health Record. If you have any questions, please contact the author of this message via ITS. Dr. Nima Walsh The patient presented on 12/20 from [facility] PE, Acute Exacerbation of COPD & Acute Purulent Tracheobronchitis, Found to have an obstructing vocal cord tumor, underwent a flexible bronchoscopy with positive biopsy for bilateral vocal cord squamous cell carcinoma. History/Risk Factors: Hypertension, Hyperlipidemia, GERD, Anxiety, Alcohol use/abuse, Smoker, previous DVT & PE. Clinical Indicators: Presented as above. Afebrile on admission. Temp low 12/22: 96.8*, 12/24: 97.5 VS: T 12/21: 97.5*, 12/22: 96.8*, 12/24 97.4*, 12/26: 96.5*; P 65 - 107^ 12/20 (in/out of atrial fibrillation. 12/22: HR 144^. 12/30: 122 (in/out of A fib). R 28-31 on 12/20. 33 on 12/22: intubated. 12/30: 28 - 11* on vent/trach. BP 12/20 145/83^. High 185/90 on 12/22, Low 63/46 12/22. PO 12/20: 96 2Lnc. 88 on 12/22, intubated/vent. Trach done on 12/23. WBC: 12/21: 18.6^, 12/23: 17.2^, 12/24: 20.2^, 12/27: 25.3^, 12/31: 13.5^ Per the 12/21 Nephrology Consult: Metabolic acidosis. 12/21: Na 119*, K 3.4*, Cl 83*, Gluc 158^, AST 124^, Troponin 0.070^^. 12/22 Sputum culture: Serratia marcescens, Yodit albicans. Treatment 12/20: IV Heparin drip, IV Solumedrol, O2 2-3Lnc, INH: Pulmicort, Perforomist, IV MagSulfate 12/21: Vit B1, IV MagSulfate, IV Zosyn, IV Cardizem for Atrial Fibrillation, IV MS, IV fluid bolus 1,000 mls @ 999 mls/hr. 12/28 IV Haldol 2 mg x2, remains on vent as of 12/31. IV Zosyn continued through 12/29. In your professional opinion, please clarify if these findings signify one of the following conditions, whether the condition is POA, and cause, if known: Sepsis ruled out Sepsis, please clarify cause if known Severe Sepsis Other, please specify Unable to determine Present on Admission: Yes or No (Last Revision: January 2018) Unable to determine MTDD
--- NOTE | 2020-01-01 12:29 | P.PN ---
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 And secondary to acute exacerbation of COPD. On 12/30/2019, the active issue for this patient remains his encephalopathy. He wakes up, comfortable and ultimately becomes agitated and he becomes tachycardic and he flips into atrial fibrillation with rapid ventricular response mode. This occurred on several occasions. He was taken off the CPAP mode yesterday and the patient was placed back on assist control mode and is back on a rate of 14 with an FiO2 of 40% with tidal volume of 400 and a PEEP of 5. Chest x-ray is still unchanged with left basilar opacity which is probably an external shadow related to his underlying hematoma. He is completing a seven-day course of Zosyn for sedation that grew in his lungs. He is afebrile. Oral and orotracheal secretions are minimal at this point in time. The hematoma across his left chest is stable. The scrotal hematoma is also stable. Meanwhile, the patient had a stable hemoglobin. In terms of his mental status, the patient was given a total of 6 mg of Haldol, 2 mg almost every 1-2 hours. The patient will be started on Seroquel today. Mother the patient is alcoholic. His neurologic exam is nonfocal and he has been moving his all 4 extremities without any limitation. no neck stiffness. No fever or chills. No other significant events overnight. He was started on enteral feeding for nutrition support and he seems to be tolerating it well. In terms of his atrial fibrillation, the patient fell back into normal sinus rhythm for now. He has not been on anticoagulation based on the fact that he had developed hematomas with drop in hemoglobin. He remains in 2. restraints as the patient has a very valuable tracheostomy tube that needs to be protected as any form of extubation may cause significant airway compromise as the patient has a laryngeal tumor this causing significant narrowing of his upper airways. Reevaluated today on 12/31/19, patient remains in the ICU, intubated, mechanically ventilated. He is on assist control rate of 14, FiO2 of 40%, tidal volume of 400 and PEEP of 5. Patient is not requiring any pressors, he is hemodynamically stable, not requiring any sedation, he is off propofol, seems to be awake and responsive, follows simple instructions, hence I switch the patient to pressure support of 8 and CPAP, and I plan to switch him to a trach collar if he continues to do well. In the meantime I have recommended radiation oncology evaluation to start possibly radiation treatment on his vocal cords malignancy. Labs today were reviewed including ABG showing a pO2 of 120 pCO2 of 42 pH of 7.45. CBC is relatively normal hemoglobin is 8.6. A letter lites are normal. Renal profile is normal Reevaluated today on 01/01/20, patient was switched yesterday to a trach collar, he is presently on 40% trach collar. Doing well, no active pulmonary symptoms, his mental status seems to wax and wane. At times noted to be quite confused. Obviously the patient had some metabolic encephalopathy since admission. Continues to have a sitter at bedside. Chest x-ray is suggestive of pneumonia, possibly aspiration pneumonia. And small left pleural effusion noted. WBC count is 13.5 hemoglobin is 8.8 electrolytes are normal renal profile is normal Objective - Vital Signs Vital signs: Vital Signs Temp 98.2 F 01/01/20 08:00 Pulse 87 01/01/20 11:00 Resp 15 01/01/20 11:00 BP 152/73 01/01/20 11:00 Pulse Ox 98 01/01/20 11:00 Intake & Output 12/31/19 01/01/20 01/01/20 18:59 06:59 18:59 Intake Total 1686 1292 685 Output Total 1335 1100 575 Balance 351 192 110 Weight 72.8 kg 71.7 kg Intake: IV 889 630 365 Fluconazole in NaCl,Iso- 50 Osm 100 mg In Saline 1 50ml.bag @ 50 mls/hr IVPB Q24H [facility] Rx#:[id number] Normal Saline Pressure 39 30 15 Bag Sodium Chloride 0.9% 1, 650 450 250 000 ml @ 50 mls/hr IV . Q20H [facility] Rx#:[id number] Zosyn 200 100 100 Tube Feeding 677 572 290 Other 120 90 30 Output: Urine 1335 1100 575 Other: Voiding Method Indwelling Catheter Indwelling Catheter Indwelling Catheter ABP, PAP, CO, CI - Last Documented Arterial Blood Pressure 141/66 - Exam Physical Exam: Revealed 64-year-old white male on 40% trach collar. Head: Atraumatic, normocephalic, tracheostomy is intact. HEENT:[Neck is supple.] [No neck masses.] [No thyromegaly.] [No JVD.] PERRLA, EOMI, no icterus. Chest: [Clear throughout, no crackles, no rhonchi, no wheezes.] Cardiac Exam: [Normal S1 and S2, no S3 gallop, no murmur.] Abdomen: [Soft, nontender, no megaly, no rebound, no guarding, normal bowel sounds.] Extremities: [No clubbing, no edema, no cyanosis.] Neurological Exam: [No focal neurologic deficit.] Alert and oriented 2 follows instructions Psychiatric: Normal mood, affect and normal mental status examination. Mental status seems to wax and wane. Skin: No rashes. Lymphatics: No lymphadenopathy. - Labs CBC & Chem 7: 01/01/20 04:34 01/01/20 04:34 Labs: Abnormal Lab Results - Last 24 Hours (Table) 12/31/19 01/01/20 01/01/20 Range/Units 18:30 04:34 04:34 WBC 13.5 H (3.8-10.6) k/uL RBC 2.64 L (4.30-5.90) m/uL Hgb 8.8 L (13.0-17.5) gm/dL Hct 26.7 L (39.0-53.0) % MCV 101.2 H (80.0-100.0) fL Neutrophils # 11.3 H (1.3-7.7) k/uL Chloride 111 H (98-107) mmol/L BUN 27 H (9-20) mg/dL Glucose 111 H (74-99) mg/dL POC Glucose (mg/dL) 145 H (75-99) mg/dL Assessment and Plan Assessment: Impression: Acute hypoxic respiratory failure secondary to 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 Left lower lobe pneumonia secondary to Serratia marcescens, remains on IV Zosyn. Chest hematoma, currently inactive. Pulmonary embolism history. Questionable filling defect in the subsegmental right lower lobe pulmonary artery branch, History of deep vein thromboses in 2018. Tobacco dependence syndrome History of alcoholism, remains on the protocol. Questionable liver cirrhosis as noted on CT of the chest Paroxysmal atrial fibrillation Recommendation: Continue 40% trach collar.. Consider transferring the patient out of the ICU to a regular medical floor with a sitter at bedside. manager creative services to address placement. Continue bronchodilators. Continue antibiotics. Continue metoprolol. Continue enteral feeding via PEG tube. Radiation oncology was consulted, but no immediate plans to do any radiation. Continue to hold anticoagulation therapy. We will continue to follow. Time with Patient: Less than 30
[2020-01-01] MEDS: MULTIVITAMINS, THERA 1 EACH TAB PO SCH (13:32)
[2020-01-01 13:33] LABS: Glucose,Whole Blood 125 mg/dL (75-99)
[2020-01-01] MEDS: FOLIC ACID 1 MG TAB PO SCH (13:33)
[2020-01-01] MEDS: THIAMINE 100 MG TAB PO SCH (13:33)
[2020-01-01 18:07] LABS: Glucose,Whole Blood 141 mg/dL (75-99)
--- NOTE | 2020-01-01 18:15 | P.PN ---
Subjective Progress Note Date: 01/01/20 Principal diagnosis: obstructive respiratory failure In follow-up today patient is sitting up in bed, nodded head in response to a few of my questions, denied any pain, nodded yes when asked if he was breathing okay. When asked if he understood everything that is going on he responded no. When asked if there was anybody I should talk to he shook his head no. Objective - Vital Signs Vital signs: Vital Signs Temp 98.8 F 01/01/20 16:00 Pulse 81 01/01/20 17:00 Resp 17 01/01/20 17:00 BP 132/65 01/01/20 17:00 Pulse Ox 99 01/01/20 17:00 Intake & Output 12/31/19 01/01/20 01/01/20 18:59 06:59 18:59 Intake Total 1686 1292 1562 Output Total 1335 1100 1290 Balance 351 192 272 Weight 72.8 kg 71.7 kg Intake: IV 889 630 774 Fluconazole in NaCl,Iso- 50 Osm 100 mg In Saline 1 50ml.bag @ 50 mls/hr IVPB Q24H [facility] Rx#:[id number] Normal Saline Pressure 39 30 24 Bag Sodium Chloride 0.9% 1, 650 450 550 000 ml @ 50 mls/hr IV . Q20H [facility] Rx#:[id number] Zosyn 200 100 200 Tube Feeding 677 572 638 Other 120 90 150 Output: Urine 1335 1100 1290 Other: Voiding Method Indwelling Catheter Indwelling Catheter Indwelling Catheter ABP, PAP, CO, CI - Last Documented Arterial Blood Pressure 141/66 - Constitutional General appearance: Present: cooperative, no acute distress, thin - EENT Eyes: Present: anicteric sclerae, EOMI ENT: Present: hearing grossly normal - Respiratory Respiratory: bilateral: CTA - Cardiovascular Rhythm: irregularly irregular Heart sounds: normal: S1, S2 - Peripheral edema leg Peripheral Edema: bilateral: Trace - Gastrointestinal General gastrointestinal: Present: normal bowel sounds, soft - Musculoskeletal Musculoskeletal: Present: generalized weakness - Psychiatric Psychiatric: Present: appropriate affect - Labs CBC & Chem 7: 01/01/20 04:34 01/01/20 04:34 Labs: Abnormal Lab Results - Last 24 Hours (Table) 12/31/19 01/01/20 01/01/20 Range/Units 18:30 04:34 04:34 WBC 13.5 H (3.8-10.6) k/uL RBC 2.64 L (4.30-5.90) m/uL Hgb 8.8 L (13.0-17.5) gm/dL Hct 26.7 L (39.0-53.0) % MCV 101.2 H (80.0-100.0) fL Neutrophils # 11.3 H (1.3-7.7) k/uL Chloride 111 H (98-107) mmol/L BUN 27 H (9-20) mg/dL Glucose 111 H (74-99) mg/dL POC Glucose (mg/dL) 145 H (75-99) mg/dL 01/01/20 01/01/20 Range/Units 13:30 18:05 WBC (3.8-10.6) k/uL RBC (4.30-5.90) m/uL Hgb (13.0-17.5) gm/dL Hct (39.0-53.0) % MCV (80.0-100.0) fL Neutrophils # (1.3-7.7) k/uL Chloride (98-107) mmol/L BUN (9-20) mg/dL Glucose (74-99) mg/dL POC Glucose (mg/dL) 125 H 141 H (75-99) mg/dL Assessment and Plan (1) Squamous cell carcinoma of left vocal cord Current Visit: Yes Status: Acute Priority: High Code(s): C32.0 - MALIGNANT NEOPLASM OF GLOTTIS SNOMED Code(s): 400798507 (2) Pulmonary emboli Current Visit: Yes Status: Acute Priority: High Code(s): I26.99 - OTHER PULMONARY EMBOLISM WITHOUT ACUTE COR PULMONALE SNOMED Code(s): 40289407 Plan: Oncology will continue to follow up and once pt is deemed stable, and hopefully more clear, a plan of care can be discussed.
--- NOTE | 2020-01-01 19:28 | PN ---
PROGRESS NOTE DATE OF SERVICE: 01/01/2020 This 64-year-old gentleman initially admitted with shortness of breath and COPD acute exacerbation. Patient also had upper airway obstruction and possible vocal cord and laryngeal tumor. The patient had a biopsy which came back positive invasive moderately diffuse squamous cell carcinoma. The patient also had upper airway obstruction also. Because of respiratory failure, patient intubated. Subsequently, tracheostomy was done. The patient also had PEG tube placement. Currently patient extubated. Patient remains confused. Patient also had significant history of alcohol and possible acute delirium tremens and atrial fibrillation also. The patient also had aspiration pneumonia and Serratia marcescens and Yodit was grown from the culture. Radiation Oncology, Dr. Beltre has seen the patient and recommended possible radiation as an outpatient. Multiple consultants following the patient closely. Dr. Mehta is following the patient closely from pulmonary standpoint of view. The patient is being closely monitored in ICU. Most recent chest x-ray which was reviewed personally by me done today showed evidence of significant pneumonic process and possibly some mild pleural effusion on the left costophrenic angle also. PAST MEDICAL HISTORY: Reviewed. REVIEW OF SYMPTOMS: Review of systems could not be taken. The patient still has a tracheostomy and trach collar. CURRENT MEDICATIONS: Reviewed and include: 1. Ventolin 2.5 q.i.d. p.r.n. 2. DuoNeb q.i.d. and p.r.n. 3. Norvasc 5 mg p.o. b.i.d. 4. Aspirin 81 mg. 5. Lipitor 20 mg daily. 6. Pulmicort 1 mg b.i.d. 7. Peridex. 8. Vitamin D3 1000 b.i.d. 9. Catapres 0.1 p.o. t.i.d. 10.Benadryl. 11.Fluconazole 100 mg p.o. daily. 12.Folic acid 1 mg daily. 13.Perforomist. 14.Haldol. 15.NovoLog. 16.Lopressor. 17.Replacement protocols. 18.Protonix. 19.Zosyn IV. 20.Seroquel. 21.Vitamin B1. 22.Ultram. PHYSICAL EXAM: Patient is stuporous. Pulse is 86. Conscious. Blood pressure 142/70. Respiration 19, temperature 98.8, pulse ox 100 percent on trach collar. HEENT: Conjunctivae normal. Oral mucosa moist. Neck is tracheostomy. Cardiovascular system: S1, S2 muffled. Respirations: Breath sounds diminished in the bases. Bilateral scattered rhonchi and crackles. Expiratory wheezing. ABDOMEN: Soft. PEG tube in situ. LEGS: No edema. No swelling. CENTRAL NERVOUS SYSTEM: Diffusely weak. LABS: WBC 13.2, hemoglobin is 8.8, sodium 141, potassium 3.5. ASSESSMENT: 1. Shortness of breath, possible chronic obstructive pulmonary disease acute exacerbation with acute left lower pneumonia possibly gram-negative with acute hypoxic respiratory failure status post mechanical ventilation, present on admission. 2. Acute upper airway obstruction secondary to possible vocal cord or laryngeal tumor with invasive moderate diffuse squamous cell carcinoma status post tracheostomy with biopsy causing upper airway obstruction. 3. Possible acute delirium tremens and tachycardia and alcohol withdrawal. 4. Atrial fibrillation with fast ventricular rate. 5. Serratia marcescens and Yodit albicans in the sputum. 6. Acute pulmonary embolism on the right side, present on admission, off anticoagulation at this time because of significant hematoma. 7. Extensive significant hematoma on the left side of the chest body as well as the upper part of the left leg and off anticoagulation because of that reason. 8. Anemia acute blood loss anemia secondary to hematoma as described above and transfusions. 9. Severe hyponatremia with possible Syndrome of inappropriate antidiuretic hormone with status post 3% saline. 10.Continued ongoing nicotine dependence. 11.Troponin 0.078 indeterminate. 12.Hypertension. 13.Hyperlipidemia. 14.History of chronic liver disease. 15.History of gastroesophageal reflux disease. 16.History of nicotine dependence. 17.Change in mental status, metabolic encephalopathy. 18.History of anxiety. 19.Gait dysfunction. 20.History EtOH. 21.Hypocalcemia. 22.FULL CODE. RECOMMENDATIONS AND DISCUSSION: In this 64-year-old gentleman who presented with multiple complex medical issues, I would recommend to continue current medications. Continue with bronchodilators. Continue the antibiotics. Repeat labs. PT/OT evaluation. If the patient is not improving and we will follow the patient closely with Dr. Mehta. The LTAC is a possibility. Otherwise, we will work towards PT/OT evaluation and ECF rehab also. Supplement vitamins. Continue the broad-spectrum antibiotics and bronchodilators. Overall prognosis extremely guarded because of multiple complex medical issues and further recommendations to follow. We will stop the IV fluids once the patient is p.o., also. Dr. Martin is following the PEG tube closely. MMODL / IJN: [id number] /
--- NOTE | 2020-01-01 19:52 | PN ---
PROGRESS NOTE This patient is status post tracheostomy for the vocal cord tumor. Patient has evidence of paroxysmal atrial flutter. Patient remains in the sinus rhythm most of the time. Intermittently short bursts of the atrial fibrillations are noted. Atrial flutter fibrillation is noted. The patient remains otherwise stable cardiac-watson. We will recommend to resume the anticoagulation when it is okay with pulmonary service. MMJONAH / ALLEYN: [id number] /
[2020-01-01] MEDS: FLUCONAZOLE IN NACL,ISO-OSM 100 MG in SALINE 1 50ML.BAG IVPB SCH (21:12)
[2020-01-01] MEDS: SODIUM CHLORIDE 0.9% 1,000 ML IV SCH (21:14)
[2020-01-02] MEDS: PIPERACILLIN-TAZOBACTAM 3.375 GM in SODIUM CHLORIDE 0.9% 100 ML IVPB SCH ×3 (00:16→17:29)
[2020-01-02 00:20] LABS: Glucose,Whole Blood 125 mg/dL (75-99)
[2020-01-02] MEDS: INSULIN ASPART (NovoLOG) 100 UNIT/ML VIAL SQ SCH ×4 (00:21→18:28)
--- NOTE | 2020-01-02 04:59 | PN ---
PROGRESS NOTE DATE OF THE PROGRESS NOTE: 01/01/2020. SUBJECTIVE: Vital signs stable. The patient has currently been taken off of the ventilator and is sitting in a chair, resting peacefully. He is alert and cooperative. OBJECTIVE: Clinical examination of the tracheostomy site reveals that the tube is intact and patent. The tracheostomy incision is healing quite nicely. There is no evidence any excessive drainage, infection, etc. The stay sutures have been removed. ASSESSMENT: Status post urgent tracheostomy with suspension microlaryngoscopy and positive biopsy of the right and left true vocal cords for invasive, non-HPV squamous cell carcinoma. PLAN: The radiology oncologist has been consulted. It has been recommended that the patient be transferred to a specialized nursing facility that is able to manage tracheostomy tubes. The patient will eventually be set up for outpatient radiation treatment pending improvement of his nutritional status. From an ENT standpoint, the patient can be discharged to the nursing facility at any time. MMODL / IJN: [id number] /
[2020-01-02 05:28] LABS: Basophils % (A) 0 %; Eosinophils # (A) 0.1 k/uL (0-0.7); Eosinophils % (A) 1 %; HCT 26.8 % (39.0-53.0); HGB 8.2 gm/dL (13.0-17.5); Hypochromasia Marked; Lymphocytes # (A) 1.1 k/uL (1.0-4.8); Lymphocytes % (A) 10 %; MCH 32.9 pg (25.0-35.0); MCHC 30.8 g/dL (31.0-37.0); Macrocytosis Moderate; Mean Platelet Volume 8.6; Monocytes # (A) 0.5 k/uL (0-1.0); Monocytes % (A) 4 %; Neutrophils # (A) 8.6 k/uL (1.3-7.7); Neutrophils % (A) 83 %; Platelet Count 141 k/uL (150-450); RDW 14.9 % (11.5-15.5); WBC 10.4 k/uL (3.8-10.6)
[2020-01-02 05:34] LABS: MCV 107.1 fL (80.0-100.0)
[2020-01-02 05:44] LABS: African American GFR (CKD) >90 (>60 ml/min/1.73 sqM); Anion Gap 4 mmol/L; Blood Urea Nitrogen 23 mg/dL (9-20); Calcium 8.5 mg/dL (8.4-10.2); Carbon Dioxide 25 mmol/L (22-30); Chloride 111 mmol/L (98-107); Glucose 97 mg/dL (74-99); Non-African American GFR(CKD) >90 (>60 ml/min/1.73 sqM); Potassium 3.6 mmol/L (3.5-5.1); Sodium 140 mmol/L (137-145)
[2020-01-02 06:17] LABS: Glucose,Whole Blood 108 mg/dL (75-99)
[2020-01-02] MEDS: FORMOTEROL FUMARATE 20 MCG/2 ML NEBU INHALATION SCH ×2 (08:19→19:38)
[2020-01-02] MEDS: BUDESONIDE 1 MG/2 ML NEBU INHALATION SCH ×2 (08:19→19:38)
[2020-01-02] MEDS: IPRATROPIUM-ALBUTEROL 3 ML NEB INHALATION SCH ×4 (08:19→19:38)
--- NOTE | 2020-01-02 08:31 | CDI ---
Documentation Clarification Form Date: 01/02/2020 08:13:00 AM From: Radha RodasBenedictOBI main, CCDS Admit Date: 12/21/2019 05:48:00 PM Patient Name: Chris Laurent Visit Number: [id number] Discharge Date: ATTENTION: The Clinical Documentation Specialists (CDI) and [facility] Coding Staff appreciate your assistance in clarifying documentation. Please respond to the clarification below the line at the bottom and electronically sign. The CDI & [facility] Coding staff will review the response and follow-up if needed. Please note: Queries are made part of the Legal Health Record. If you have any questions, please contact the author of this message via ITS. Dr. Garret Oreilly: Per the 12/31 Cardiology Progress Note: "This patient is status post tracheostomy for the vocal cord tumor. Patient has evidence of paroxysmal atrial flutter. Patient remains in the sinus rhythm most of the time. Intermittently short bursts of the atrial fibrillations are noted. Atrial flutter fibrillation is noted." Paroxysmal atrial fibrillation is previously documented throughout the chart starting on 12/23, Atrial flutter is documented in the 12/30 & 12/31 cardiology progress notes without further specificity. History/Risk Factors: Previous pneumonia, COPD, Hypertension, Hyperlipidemia, Chronic liver disease, Anxiety, Current smoker. Clinical Indicators: Transferred from [facility] on 12/20 with SOB, wheezing, cough, change in his voice & stridor. Admitted with acute exacerbation COPD, Acute purulent tracheobronchitis, PE & acute respiratory failure. Intubated on 12/22, diagnosed with squamous cell carcinoma bilateral vocal cords per bronchoscopy w/biopsy. Eventual tracheostomy to protect patient's airway. Vital signs 12/20: T (98.1), P 65, R 20 (cough, sob), BP 145/83, PO 96 on 2Lnc. Heart rate on 12/20 elevated to 110, patient has been in/out of atrial fibrillation since admission per subsequent documentation. Admission LAB: WBC 18.6^, Neut 15.4^, APTT >200.0^, Na 119, K 3.4*, Cl 83*, Glucose 158^, Troponin 0.070^. Treatment 12/20: IV Heparin drip, IV Solumedrol, INHPulmicort, Performist, IV MagSulfate. 12/22 IV Zosyn added for diagnosis of pneumonia, IV Cardizem. 12/27 IV Catapres. In your professional opinion, in order to capture the severity of condition; can you please clarify the type of Atrial Flutter if known? Typical/Type I Atypical/Type II Other, please specify Unable to determine (Last Revision: January 2018) MTDD
[2020-01-02] MEDS: NICOTINE 14MG/24HR PATCH TRANSDERM SCH (08:50)
[2020-01-02] MEDS: ATORVASTATIN 20 MG TAB PO SCH (08:51)
[2020-01-02] MEDS: QUEtiapine 50 MG TAB PO SCH ×2 (08:51→22:06)
[2020-01-02] MEDS: THIAMINE 100 MG TAB PO SCH (08:52)
[2020-01-02] MEDS: FOLIC ACID 1 MG TAB PO SCH (08:52)
[2020-01-02] MEDS: PANTOPRAZOLE 40 MG/10 ML VIAL IVP SCH ×2 (08:52→21:10)
[2020-01-02] MEDS: amLODIPine 5 MG TAB PO SCH ×2 (08:52→21:09)
[2020-01-02] MEDS: CHOLECALCIFEROL 1,000 UNIT TAB PO SCH ×2 (08:52→21:09)
[2020-01-02] MEDS: cloNIDine HCL 0.1 MG TAB PO SCH ×3 (08:53→22:06)
[2020-01-02] MEDS: ASPIRIN 81 MG PO SCH (08:54)
[2020-01-02] MEDS: METOPROLOL TARTRATE 25 MG TAB PO SCH ×2 (08:54→21:09)
[2020-01-02] MEDS: MULTIVITAMINS, THERA 1 EACH TAB PO SCH (08:54)
[2020-01-02] MEDS: CHLORHEXIDINE GLUCONATE 15 ML CUP MUCOUS MEM SCH ×2 (10:14→22:06)
[2020-01-02] MEDS: POTASSIUM BICARBONATE/CIT AC 20 MEQ TABLET.EFF PO SCH (10:15)
[2020-01-02 11:41] LABS: Glucose,Whole Blood 119 mg/dL (75-99)
--- NOTE | 2020-01-02 11:45 | P.PN ---
Subjective Progress Note Date: 01/02/20 On 12/25/2019 patient seen in follow-up in the intensive care unit, he is status post urgent tracheostomy with insertion of a #8 Shiley cuffed fenestrated tracheostomy tube, suspension microlaryngoscopy with biopsy of the left true vocal cord anterior commissure left laryngeal mass and right true vocal cord. Pathology report is pending, this morning he seen in the intensive care unit, his trach is connected to the ventilator, on assist-control mode of ventilation with a rate of 14, tidal volume of 400, FiO2 of 50% and PEEP of 8, this morning's blood gas was reviewed showing pO2 of 78, pCO2 of 39, and pH of 7.38, this was done and FiO2 of 40%. Patient remains sedated, on 50 mics per kilo per minute of depressive and, and maintenance IV fluids of 0.9 normal saline at a rate of 50 ML per hour, no vasoactive infusions, he is in sinus mechanism, slightly tachycardic, with a rate of 95-110 BPM, blood pressure stable, 132/58, O2 sat is 98%. This morning's chest x-ray was reviewed showing a left lower lobe atelectasis and associated effusion versus pneumonia, apical pleural calcification consider old granulomatous disease or asbestos related disease on a background of underlying emphysema. Today's labs have been reviewed, showing white blood cell count of 17.1, hemoglobin is 6.6 patient is receiving 1 unit of packed red blood cells this morning, serum sodium is improving, up to 128 on tod ay's labs, the rest of the electrolytes were within normal limits, and renal profile is stable with creatinine of 1.35. Antibiotic coverage is in the form of Zosyn, sputum culture showed moderate gram-negative bacilli, and a few budding yeast. Final cultures pending, patient has been afebrile On 01/02/2020 patient seen in follow-up on 9 Gen. oncology floor. he is resting comfortably in bed, he is sleeping but easily wakes up and he is shaking his head yes or no appropriately to questions. She denies any distress, denies any shortness of breath, he is on 40% trach collar, physical exam reveals diminished breath sounds, but no rhonchi, no wheezing. Patient has an ineffective cough and he is able to clear yellowish colored phlegm out of the tracheostomy, he remains on Zosyn for Serratia marcescens in the sputum culture. He is receiving tube feedings through his PEG tube. No acute events overnight, patient has been working with physical therapy, does get impulsive at times with poor safety judgment and we'll attempt to get up unassisted and for that reason a public safety police has been placed at the bedside. Patient has been cleared by ENT service for discharge to long-term care facility the plan of starting radiation treatments once patient is stronger and his nutritional status has improved Objective - Vital Signs Vital signs: Vital Signs Temp 98.2 F 01/02/20 06:21 Pulse 70 01/02/20 08:41 Resp 20 01/02/20 06:21 BP 167/79 01/02/20 06:21 Pulse Ox 99 01/02/20 06:21 Intake & Output 01/01/20 01/02/20 01/02/20 18:59 06:59 18:59 Intake Total 1670 780 Output Total 1290 1675 Balance 380 -895 Weight 70.6 kg Intake: IV 824 400 Fluconazole in NaCl,Iso- 50 Osm 100 mg In Saline 1 50ml.bag @ 50 mls/hr IVPB Q24H [facility] Rx#:[id number] Normal Saline Pressure 24 Bag Sodium Chloride 0.9% 1, 600 250 000 ml @ 50 mls/hr IV . Q20H [facility] Rx#:[id number] Zosyn 200 100 Tube Feeding 696 290 Other 150 90 Output: Urine 1290 1675 Other: Voiding Method Indwelling Catheter Indwelling Catheter Indwelling Catheter ABP, PAP, CO, CI - Last Documented Arterial Blood Pressure 141/66 - Exam GENERAL EXAM: Sleepy but easily arousable and mouthing simple answers appropriately, 64-year-old white male, with a #8 Shiley cuffed fenestrated tracheostomy on 40% trach collar HEAD: Normocephalic/atraumatic. EYES: Normal reaction of pupils, equal size. Conjunctiva pink, sclera white. NOSE: Clear with pink turbinates. THROAT: No erythema or exudates. NECK: No masses, no JVD, no thyroid enlargement, no adenopathy. CHEST: No chest wall deformity. Symmetrical expansion. LUNGS: Equal air entry with no crackles, wheeze, rhonchi or dullness. Diminished breath sounds at the bases CVS: Regular rate and rhythm, normal S1 and S2, no gallops, no murmurs, no rubs ABDOMEN: Soft, nontender. No hepatosplenomegaly, normal bowel sounds, no guarding or rigidity. EXTREMITIES: No clubbing, no edema, no cyanosis, 2+ pulses and upper and lower extremities. MUSCULOSKELETAL: Muscle strength and tone normal. SPINE: No scoliosis or deformity SKIN: Large left lateral chest hematoma has been outlined with a marker, with the edges feeding and judging by the outlying there has been no increase in the size, scrotal hematoma CENTRAL NERVOUS SYSTEM: moves extremities, does not open eyes to voice. No focal deficits, tone is normal in all 4 extremities. - Labs CBC & Chem 7: 01/02/20 05:11 01/02/20 05:11 Labs: Abnormal Lab Results - Last 24 Hours (Table) 01/01/20 01/01/20 01/02/20 Range/Units 13:30 18:05 00:19 RBC (4.30-5.90) m/uL Hgb (13.0-17.5) gm/dL Hct (39.0-53.0) % MCV (80.0-100.0) fL MCHC (31.0-37.0) g/dL Plt Count (150-450) k/uL Neutrophils # (1.3-7.7) k/uL Chloride (98-107) mmol/L BUN (9-20) mg/dL POC Glucose (mg/dL) 125 H 141 H 125 H (75-99) mg/dL 01/02/20 01/02/20 01/02/20 Range/Units 05:11 05:11 06:16 RBC 2.50 L (4.30-5.90) m/uL Hgb 8.2 L (13.0-17.5) gm/dL Hct 26.8 L (39.0-53.0) % MCV 107.1 H D (80.0-100.0) fL MCHC 30.8 L (31.0-37.0) g/dL Plt Count 141 L (150-450) k/uL Neutrophils # 8.6 H (1.3-7.7) k/uL Chloride 111 H (98-107) mmol/L BUN 23 H (9-20) mg/dL POC Glucose (mg/dL) 108 H (75-99) mg/dL Assessment and Plan Plan: Assessment: Acute hypoxic respiratory failure secondary to 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 Left lower lobe pneumonia secondary to Serratia marcescens, remains on IV Zosyn. Chest hematoma, currently inactive. Pulmonary embolism history. Questionable filling defect in the subsegmental right lower lobe pulmonary artery branch, History of deep vein thromboses in 2018. Tobacco dependence syndrome History of alcoholism, remains on the protocol. Questionable liver cirrhosis as noted on CT of the chest Paroxysmal atrial fibrillation, anticoagulation remains on hold in view of large left-sided hematoma and scrotal hematoma Plan: Continue current antibiotics, continue breathing treatments, patient is on 40% trach collar, tolerating it well, no worsening dyspnea, no wheezing or rhonchi, he has an ineffective cough, he is clearing some yellowish colored phlegm, suction as needed. He is tolerating tube feedings, vital signs are stable, his been afebrile, he has been cleared for discharge to long-term nursing facility by ENT service with a goal of starting radiation treatments once his overall sta tus is stronger. From pulmonary perspective patient can be considered for discharge as well. I performed a history & physical examination of the patient and discussed their management with my nurse practitioner, Marifer Hernández. I reviewed the nurse practitioner's note and agree with the documented findings and plan of care. Lung sounds are positive for diminished breath sounds at the bases The findings and the impression was discussed with the patient. I attest to the documentation by the nurse practitioner. Time with Patient: Less than 30
--- NOTE | 2020-01-02 13:14 | P.PN ---
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 Also suspected to have left lower lobe pneumonia secondary to marcense and bakari, and his been treated with fluconazole and Zosyn Patient has suspicion of pulmonary embolism upon admission however it was very tiny and were not sure about its significance this as patient developed significant hematoma in his chest, I discussed the case with the pulmonary service and they recommended to hold on anticoagulation for now and patient comes [facility] as an outpatient as a risk of anticoagulation more than benefits. Possible discharge in 24-48 hours Objective - Vital Signs Vital signs: Vital Signs Temp 98.8 F 01/02/20 11:49 Pulse 80 01/02/20 11:55 Resp 18 01/02/20 11:49 BP 167/79 01/02/20 06:21 Pulse Ox 98 01/02/20 11:49 Intake & Output 01/01/20 01/02/20 01/02/20 18:59 06:59 18:59 Intake Total 1670 780 Output Total 1290 1675 Balance 380 -895 Weight 70.6 kg Intake: IV 824 400 Fluconazole in NaCl,Iso- 50 Osm 100 mg In Saline 1 50ml.bag @ 50 mls/hr IVPB Q24H [facility] Rx#:[id number] Normal Saline Pressure 24 Bag Sodium Chloride 0.9% 1, 600 250 000 ml @ 50 mls/hr IV . Q20H [facility] Rx#:[id number] Zosyn 200 100 Tube Feeding 696 290 Other 150 90 Output: Urine 1290 1675 Other: Voiding Method Indwelling Catheter Indwelling Catheter Indwelling Catheter ABP, PAP, CO, CI - Last Documented Arterial Blood Pressure 141/66 - Exam -GENERAL: The patient is alert , cooperative, poor historian, no acute distress HEENT: Pupils are round and equally reacting to light. EOMI. No scleral icterus. No conjunctival pallor. Normocephalic, atraumatic. No pharyngeal erythema. No thyromegaly. CARDIOVASCULAR: S1 and S2 present. No murmurs, rubs, or gallops. -PULMONARY: Chest is clear to auscultation, no wheezing or crackles. Trach collar into place with oxygen at 40% ABDOMEN: Soft, nontender, nondistended, normoactive bowel sounds. No palpable organomegaly. MUSCULOSKELETAL: No joint swelling or deformity. EXTREMITIES: No cyanosis, clubbing, or pedal edema. NEUROLOGICAL: Gross neurological examination did not reveal any focal deficits. SKIN: No rashes. No petechiae - Labs CBC & Chem 7: 01/02/20 05:11 01/02/20 05:11 Labs: Abnormal Lab Results - Last 24 Hours (Table) 01/01/20 01/01/20 01/02/20 Range/Units 13:30 18:05 00:19 RBC (4.30-5.90) m/uL Hgb (13.0-17.5) gm/dL Hct (39.0-53.0) % MCV (80.0-100.0) fL MCHC (31.0-37.0) g/dL Plt Count (150-450) k/uL Neutrophils # (1.3-7.7) k/uL Chloride (98-107) mmol/L BUN (9-20) mg/dL POC Glucose (mg/dL) 125 H 141 H 125 H (75-99) mg/dL 01/02/20 01/02/20 01/02/20 Range/Units 05:11 05:11 06:16 RBC 2.50 L (4.30-5.90) m/uL Hgb 8.2 L (13.0-17.5) gm/dL Hct 26.8 L (39.0-53.0) % MCV 107.1 H D (80.0-100.0) fL MCHC 30.8 L (31.0-37.0) g/dL Plt Count 141 L (150-450) k/uL Neutrophils # 8.6 H (1.3-7.7) k/uL Chloride 111 H (98-107) mmol/L BUN 23 H (9-20) mg/dL POC Glucose (mg/dL) 108 H (75-99) mg/dL 01/02/20 Range/Units 11:40 RBC (4.30-5.90) m/uL Hgb (13.0-17.5) gm/dL Hct (39.0-53.0) % MCV (80.0-100.0) fL MCHC (31.0-37.0) g/dL Plt Count (150-450) k/uL Neutrophils # (1.3-7.7) k/uL Chloride (98-107) mmol/L BUN (9-20) mg/dL POC Glucose (mg/dL) 119 H (75-99) mg/dL Assessment and Plan Assessment: Acute respiratory failure secondary to vocal cord mass with biopsy showing squamous cell carcinoma status post tracheostomy on trach collar The chest wall hematoma, hold anticoagulation as risks more than benefits Acute COPD exacerbation, suspicion for pulmonary embolism is small size is tiny Possible left lower lung pneumonia Atrial fibrillation, paroxysmal Dysphagia status post PEG tube placement History of alcoholism High suspicion for alcoholic liver disease and cirrhosis on CAT scan of the chest Plan: This is a pleasant 64 years old male who presents with respiratory distress. Continue with antibiotics with fluconazole and Zosyn, continue Seroquel, hold Haldol, continue with PEG and tracheostomy. Patient might need to go to LTAC, also need to follow up outpatient with ENT Labs and medication were reviewed.. Continue same treatment. Continue with symptomatic treatment. Resume home medication. Monitor lytes and vitals. DVT and GI prophylaxis. Further recommendations of the clinical course of the patient DVT prophylaxis: No anticoagulation because of his chest hematoma, risks more than benefits GI Prophylaxis: Ppi Prognosis is guarded
[2020-01-02] MEDS: SODIUM CHLORIDE 0.9% 1,000 ML IV SCH (17:32)
--- NOTE | 2020-01-02 17:39 | P.PN ---
Subjective Progress Note Date: 01/02/20 Principal diagnosis: obstructive respiratory failure, larynx/vocal cord carcinoma In follow-up today patient is sitting up in bed, he is more interactive, certainly seems to be more aware of his surroundings, he denied cough, nausea, he is not sure about what all has happened. No pain Objective - Vital Signs Vital signs: Vital Signs Temp 98.8 F 01/02/20 11:49 Pulse 78 01/02/20 16:13 Resp 18 01/02/20 11:49 BP 167/79 01/02/20 06:21 Pulse Ox 98 01/02/20 11:49 Intake & Output 01/01/20 01/02/20 01/02/20 18:59 06:59 18:59 Intake Total 1670 780 Output Total 1290 1675 Balance 380 -895 Weight 70.6 kg Intake: IV 824 400 Fluconazole in NaCl,Iso- 50 Osm 100 mg In Saline 1 50ml.bag @ 50 mls/hr IVPB Q24H [facility] Rx#:[id number] Normal Saline Pressure 24 Bag Sodium Chloride 0.9% 1, 600 250 000 ml @ 50 mls/hr IV . Q20H [facility] Rx#:[id number] Zosyn 200 100 Tube Feeding 696 290 Other 150 90 Output: Urine 1290 1675 Other: Voiding Method Indwelling Catheter Indwelling Catheter Indwelling Catheter ABP, PAP, CO, CI - Last Documented Arterial Blood Pressure 141/66 - Constitutional General appearance: Present: cooperative, mild distress, thin - EENT Eyes: Present: anicteric sclerae, EOMI ENT: Present: hearing grossly normal - Respiratory Respiratory: bilateral: CTA - Cardiovascular Rhythm: regular Heart sounds: normal: S1, S2 Abnormal Heart Sounds: Absent: systolic murmur, diastolic murmur, rub, S3 Gallop, S4 Gallop, click, other - Peripheral edema leg Peripheral Edema: bilateral: None - Gastrointestinal General gastrointestinal: Present: normal bowel sounds, soft - Neurologic Neurologic: Present: CNII-XII intact - Musculoskeletal Musculoskeletal: Present: generalized weakness, strength equal bilaterally - Psychiatric Psychiatric: Present: A&O x's 3, appropriate affect, intact judgment & insight (appears to understand our discussion) - Labs CBC & Chem 7: 01/02/20 05:11 01/02/20 05:11 Labs: Abnormal Lab Results - Last 24 Hours (Table) 01/01/20 01/02/20 01/02/20 Range/Units 18:05 00:19 05:11 RBC 2.50 L (4.30-5.90) m/uL Hgb 8.2 L (13.0-17.5) gm/dL Hct 26.8 L (39.0-53.0) % MCV 107.1 H D (80.0-100.0) fL MCHC 30.8 L (31.0-37.0) g/dL Plt Count 141 L (150-450) k/uL Neutrophils # 8.6 H (1.3-7.7) k/uL Chloride (98-107) mmol/L BUN (9-20) mg/dL POC Glucose (mg/dL) 141 H 125 H (75-99) mg/dL 01/02/20 01/02/20 01/02/20 Range/Units 05:11 06:16 11:40 RBC (4.30-5.90) m/uL Hgb (13.0-17.5) gm/dL Hct (39.0-53.0) % MCV (80.0-100.0) fL MCHC (31.0-37.0) g/dL Plt Count (150-450) k/uL Neutrophils # (1.3-7.7) k/uL Chloride 111 H (98-107) mmol/L BUN 23 H (9-20) mg/dL POC Glucose (mg/dL) 108 H 119 H (75-99) mg/dL Assessment and Plan (1) 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 Explained that he needs PET scan to review his entire body for cancer. Told him that prognosis and treatment options will be discussed once we know where the cancer is. Patient did seem to understand my discussion with him. He nodded his head yes in response when I asked him if he understood. He shook my hand. He appeared to have comprehended our conversation. 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 Pt has massive left side hematoma. Has recently underwent multiple emergent procedures. Will consider anticoagulation in the near future, may need IVC filter. Cont DVT prophylaxis with SCDs. Current Visit: Yes Status: Acute Priority: High Code(s): I26.99 - OTHER PULMONARY EMBOLISM WITHOUT ACUTE COR PULMONALE SNOMED Code(s): 10411376
[2020-01-02 18:01] LABS: Glucose,Whole Blood 114 mg/dL (75-99)
[2020-01-02] MEDS: traMADol 50 MG TAB PO PRN (22:09)
[2020-01-02] MEDS: FLUCONAZOLE IN NACL,ISO-OSM 100 MG in SALINE 1 50ML.BAG IVPB SCH (22:24)
[2020-01-03] MEDS: INSULIN ASPART (NovoLOG) 100 UNIT/ML VIAL SQ SCH ×4 (01:02→18:04)
[2020-01-03 01:11] LABS: Glucose,Whole Blood 99 mg/dL (75-99)
[2020-01-03] MEDS: PIPERACILLIN-TAZOBACTAM 3.375 GM in SODIUM CHLORIDE 0.9% 100 ML IVPB SCH ×3 (01:53→16:28)
[2020-01-03 06:03] LABS: Glucose,Whole Blood 124 mg/dL (75-99)
--- NOTE | 2020-01-03 08:08 | P.CONS ---
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 He presented secondary to respiratory distress, ultimately requiring urgent trach placement secondary to airway obstruction. According to the patient's , he initially developed difficulty with hoarseness of his voice this past fall. This seemed to progress and worsen over time. However, shortly before his eventual admission he developed dyspnea with cough. He was ultimately hospitalized at [facility] in [place] and a CT PE was worrisome for pulmonary embolism. He was subsequently transferred to [facility] and he was found to be stridorous. A CT of the neck and chest on December 21 revealed a significant narrowing of the trachea at the level of the glottis. The airway was down to 3 mm. He subsequently had a CT scan of the abdomen and pelvis as well, which revealed a small left pleural effusion, as well as a large subcutaneous density over his left chest consistent with hematoma from recent anticoagulation. The patient underwent bronchoscopy on December 22 which revealed a glottic mass resulting in significant airway narrowing. During this procedure, the patient went into atrial fibrillation with RVR. He was subsequently intubated and sedated. On December 24 he underwent tracheostomy placement with direct laryngoscopy. This revealed the left glottic mass with some extension to the right true vocal cord at the level of the anterior commissure. According to Dr. Lawrence, the right true vocal cord was still moving. The patient also had a PEG tube placed on December 27. It was difficult weaning him off of the ventilation secondary to recurrent atrial fibrillation with RVR as well as significant agitation. This was felt this might be seco ndary to alcohol withdrawal. During my first visit with the patient, he has been off the ventilator for 6 hours and does not appear agitated. He reports no significant pain, discomfort or dyspnea at this time. Review of Systems ROS unobtainable: due to endotracheal tube Past Medical History Past Medical History: COPD, Deep Vein Thrombosis (DVT), GERD/Reflux, Hyperlipidemia, Hypertension, Liver Disease, Pneumonia, Pulmonary Embolus (PE) Additional Past Medical History / Comment(s): Arthritis History of Any Multi-Drug Resistant Organisms: None Reported Past Surgical History: Unable to Obtain Additional Past Surgical History / Comment(s): COLONOSCOPY. BILAT CATARACTS REMOVED Past Anesthesia/Blood Transfusion Reactions: No Reported Reaction Past Psychological History: Anxiety Smoking Status: Current every day smoker Past Alcohol Use History: Unable to Obtain, Daily Additional Past Alcohol Use History / Comment(s): SMOKES 1 PPD SINCE ABOUT AGE 12. DRINKS 10 BEERS DAILY Past Drug Use History: Unable to Obtain, Marijuana - Past Family History Mother Family Medical History: Hypertension Father History Unknown: Yes Family Medical History: Hypertension Medications and Allergies Home Medications Medication Instructions Recorded Confirmed Type Atorvastatin [Lipitor] 20 mg PO DAILY 07/05/18 12/21/19 History Cholecalciferol [Vitamin D3] 1,000 unit PO BID 07/05/18 12/21/19 History Furosemide [Lasix] 40 mg PO DAILY 07/05/18 12/21/19 History Multivitamin [Men's Multi-Vitamin] 1 tab PO DAILY 07/05/18 12/21/19 History [place]-3 Fatty Acids/Fish Oil [Fish 2 cap PO DAILY 07/05/18 12/21/19 History Oil 1,000 mg Softgel] Potassium Chloride [K-Tab ER] 10 meq PO DAILY 07/05/18 12/21/19 History Ranitidine HCl [Zantac] 150 mg PO DAILY 07/05/18 12/21/19 History Spironolactone 50 mg PO DAILY 07/05/18 12/21/19 History cloNIDine HCL [Catapres] 0.2 mg PO BID 07/05/18 12/21/19 History traMADol HCl [Ultram] 50 mg PO BID PRN 07/05/18 12/21/19 History Amoxic-Pot Clav 875-125Mg 1 tab PO BID 12/21/19 12/21/19 History [Augmentin 875-125] Clopidogrel Bisulfate [Plavix] 75 mg PO DAILY 12/21/19 12/21/19 History Metoprolol Tartrate [Lopressor] 50 mg PO DAILY 12/21/19 12/21/19 History diphenhydrAMINE [Benadryl] 25 mg PO DAILY PRN 12/21/19 12/21/19 History predniSONE See Taper PO DAILY 12/21/19 12/21/19 History Allergies Allergy/AdvReac Type Severity Reaction Status Date / Time lisinopril Allergy Swelling Verified 12/21/19 21:45 acetaminophen [From Tylenol] AdvReac LIVER Verified 12/21/19 21:45 PROBLEMS PER NSAIDS (Non-Steroidal AdvReac LIVER Verified 12/21/19 21:45 Anti-Inflamma PROBLEMS PER Physical Exam Vitals: Vital Signs Temp Pulse Pulse Resp BP BP Pulse Ox 01/03/20 06:20 98.6 F 85 18 159/80 98 01/03/20 00:43 99 01/02/20 22:21 80 132/72 99 01/02/20 21:32 98.7 F 96 16 170/68 99 01/02/20 20:47 132 H 17 168/75 98 01/02/20 20:03 78 01/02/20 19:50 78 01/02/20 19:38 78 01/02/20 18:05 142/73 01/02/20 16:13 78 01/02/20 16:02 74 01/02/20 11:55 80 01/02/20 11:49 98.8 F 72 18 98 01/02/20 11:45 74 01/02/20 08:41 70 01/02/20 08:28 78 01/02/20 08:19 70 Intake and Output 01/02/20 01/03/20 01/03/20 22:59 06:59 14:59 Intake Total 282 964 Output Total 700 1000 Balance -418 -36 Intake: IV 50 400 Fluconazole in NaCl,Iso- 50 Osm 100 mg In Saline 1 50ml.bag @ 50 mls/hr IVPB Q24H [facility] Rx#:[id number] Sodium Chloride 0.9% 1, 400 000 ml @ 50 mls/hr IV . Q20H [facility] Rx#:[id number] Intake, IV Titration 100 Amount Piperacillin-Tazobactam 3 100 .375 gm In Sodium Chloride 0.9% 100 ml @ 25 mls/hr IVPB Q8HR [facility] Rx# :[id number] Tube Feeding 232 464 Output: Urine 700 1000 Other: Voiding Method Indwelling Catheter Indwelling Catheter # Bowel Movements 2 Weight 83.5 kg - Constitutional General appearance: disheveled, no acute distress - EENT Eyes: EOMI, PERRLA ENT: hearing grossly normal - Neck Neck: no lymphadenopathy - Respiratory Respiratory: bilateral: other (loud upper airway sounds due to trach collar) - Cardiovascular Rhythm: regular - Gastrointestinal General gastrointestinal: no distended, no tenderness - Integumentary Integumentary: calor - Neurologic Neurologic: CNII-XII intact - Psychiatric Psychiatric: A&O x's 3 Results CBC & Chem 7: 01/02/20 05:11 01/02/20 05:11 Labs: Abnormal Lab Results - Last 24 Hours (Table) 01/02/20 01/02/20 01/03/20 Range/Units 11:40 17:59 05:52 POC Glucose (mg/dL) 119 H 114 H 124 H (75-99) mg/dL CT scan - abdomen: report reviewed, image reviewed CT scan - chest: report reviewed, image reviewed CT Scan - head: report reviewed, image reviewed Assessment and Plan Plan: The patient is a 64-year-old male with a history of a recently diagnosed at least stage III (cT3, cN0, M0) 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 He presented secondary to respiratory distress, ultimately requiring urgent trach placement secondary to airway obstruction. 1. Squamous cell carcinoma of larynx: I discussed with the patient and his that he should undergo a PET/CT for staging to rule out distant disease. There were no obvious distant metastasis on his CT imaging. I explained that if the patient has no evidence of distant disease, he would be a candidate for definitive treatment with either concurrent chemoradiation or possibly laryngectomy followed by radiotherapy if he is found to have T4 disease on his staging workup. To better assess the local extent of tumor, I would recommend a CT of the neck with contrast. 2. Weakness/generalized: following his multiple day hospital stay and intubation, the patient is quite weak at this time. He has been sitting up in a chair today, but he is still not ambulated. I discussed with the patient's that he would need to go to a rehabilitation facility to improve his strength and stamina prior to either treatment. The patient is currently being considered for select specialty rehabilitation as he has a PEG tube and trach. After his subsequent discharge, he should undergo PET/CT and then return for an outpatient follow-up. Time with Patient: Greater than 30
[2020-01-03] MEDS: FORMOTEROL FUMARATE 20 MCG/2 ML NEBU INHALATION SCH ×2 (08:29→18:56)
[2020-01-03] MEDS: BUDESONIDE 1 MG/2 ML NEBU INHALATION SCH ×2 (08:29→18:56)
[2020-01-03] MEDS: IPRATROPIUM-ALBUTEROL 3 ML NEB INHALATION SCH ×4 (08:29→18:56)
--- NOTE | 2020-01-03 09:08 | CDI ---
Documentation Clarification Form Date: 12/31/2019 08:58:00 AM From: Radha RodasBenedictOBI main, CCDS Admit Date: 12/21/2019 05:48:00 PM Patient Name: Chris Laurent Visit Number: [id number] Discharge Date: ATTENTION: The Clinical Documentation Specialists (CDI) and [facility] Coding Staff appreciate your assistance in clarifying documentation. Please respond to the clarification below the line at the bottom and electronically sign. The CDI & [facility] Coding staff will review the response and follow-up if needed. Please note: Queries are made part of the Legal Health Record. If you have any questions, please contact the author of this message via ITS. Dr. Devante Martin: Per the 12/27 OR note: Preop & Postop Diagnosis is "Malnutrition", nos. An EGD with PEG tube placement was performed. History/Risk Factors: Hypertension, Hyperlipidemia, Liver disease, GERD, smoker. 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 Patient had a tracheostomy done on 12/23. Labs 12/21: Total protein 6.4, Albumin 3.5. 12/24: Total Protein 4.4*, Albumin 2.2*. 12/25: Total Protein 4.7*, Albumin 2.4*. Current BMI as of 12/30: 22.4 Dietitian Consult 12/24: Poor nutritional intake, 0% consumed, Ht 5 ft 11 in. BMI: 22.5. Inadequate energy intake, intubated & NPO. Meeting 75% nutritional goals. Mild weakness. Treatment: Intubated on 12/22, Flexible bronchosocpy with biopsies on 12/22. Tracheostomy done on 12/23. EGD w/PEG tube placement 12/27. 12/20: IV Heparin drip, IV Solumedrol, INH Pulmicort,, Habitrol patch, IV MagSulf & IV fluid rate 75. Daily weights, I&O, NPO on vent since 12/22 in restraints, gastric feeds & po meds via PEG. In your professional opinion, can you please clarify if these findings signify one of the following conditions? Mild Protein-Calorie Malnutrition Moderate Protein-Calorie Malnutrition Other condition, please specify Unable to determine (Last Revision: April 2019) Moderate protein calorie malnutrition MTDD
[2020-01-03] MEDS: PANTOPRAZOLE 40 MG/10 ML VIAL IVP SCH ×2 (10:15→22:02)
[2020-01-03] MEDS: POTASSIUM BICARBONATE/CIT AC 20 MEQ TABLET.EFF PO SCH (10:16)
[2020-01-03] MEDS: CHOLECALCIFEROL 1,000 UNIT TAB PO SCH ×2 (10:17→22:01)
[2020-01-03] MEDS: ASPIRIN 81 MG PO SCH (10:17)
[2020-01-03] MEDS: ATORVASTATIN 20 MG TAB PO SCH (10:17)
[2020-01-03] MEDS: cloNIDine HCL 0.1 MG TAB PO SCH ×3 (10:17→22:02)
[2020-01-03] MEDS: METOPROLOL TARTRATE 25 MG TAB PO SCH ×2 (10:17→22:02)
[2020-01-03] MEDS: NICOTINE 14MG/24HR PATCH TRANSDERM SCH (10:18)
[2020-01-03] MEDS: amLODIPine 5 MG TAB PO SCH ×2 (10:18→22:01)
[2020-01-03] MEDS: QUEtiapine 50 MG TAB PO SCH ×2 (10:18→22:01)
--- NOTE | 2020-01-03 10:46 | CT ---
EXAMINATION TYPE: CT neck chest w con DATE OF EXAM: 01/03/2020 10:06 AM COMPARISON: CT neck and chest dated 12/22/2019 HISTORY: New onset larynx cancer CT DLP: 602.9 mGycm Automated exposure control for dose reduction was used. CONTRAST: CT scan of the neck is performed following with IV Contrast, patient injected with 100 mL of Isovue 3 00. Axial images are obtained, coronal and sagittal reformatted images are reviewed. FINDINGS: NECK: Airway: Tracheostomy is seen. There is fullness of the supraglottic larynx at the level of the vallecula fill ing the left piriform sinus with masslike density on series 4 image 40 measuring 2.1 x 1.5 cm. True a nd false focal cords are opposed and not well delineated. Parotid/submandibular glands: No gross abnormality seen. Carotid/Vascular Structures: Focally within the left carotid bulb there is approximately 50% stenosis . Within the left internal carotid artery just distal to its origin there is approximately 80% stenos is in a segment measuring 1.6 cm in length. In the right carotid bulb there is approximately 60% sten osis and in the proximal right internal carotid artery there is a short segment of approximately 60% stenosis measuring 8 mm in length beginning just distal to the right nipple. Osseous Structures: There is diffuse osseous demineralization. Visualized paranasal sinuses display p olypoid mucosal thickening is mild of the left maxillary sinus and inspissated secretions with mild m ucosal thickening of the right maxillary sinus. Left-sided danial bullosa is present. Scant mucosal t hickening in the ethmoid air cells. Remaining paranasal sinuses and mastoid air cells are well aerate d. Mild degenerative change of the spine. Other: No suspicious adenopathy is seen of the neck. CHEST: Moderate emphysematous changes of the lungs are seen with azygos fissure and calcific pleural parench ymal scarring. Moderate bilateral pleural effusions, left greater than right with associated compress ro atelectasis is seen. 5 mm nodule is seen of the lingula on series 6 image 35. Spiculated density in the lingula measures 7 mm on image 40. Additional spiculated density on image 44 measures 1.1 cm. These areas may represent atelectasis or true nodule. The lower lobes are largely obscured secondary to atelectasis. Moderate bilateral probable gynecomastia is seen. Mediastinum is positioned towards the right hemitho rax, possibly due to volume loss on the right and atelectasis. Severe three-vessel coronary artery ca lcifications are evident. No abnormal mediastinal adenopathy seen. Colon is abnormally displaced behi nd the right hepatic margin and trace abdominal ascites is seen. Compression deformity of T7 is prese nt. Vertebral body height loss of approximately 50%. IMPRESSION: 1. Fullness of the left supraglottic larynx filling the left piriform sinus. This may represent a chanda evelyn mass or debris as this was not readily seen on the prior of 12/22/2019. The true and false focal c ords are collapsed and suboptimally evaluated. 2. No suspicious adenopathy of the neck or mediastinum. 3. Solitary lingular ulnar nodule measuring 5 mm and 2 spiculated densities in the lingula that may r epresent atelectasis or nodule. Multifocal atelectasis is seen of the lungs as there are moderate ple ural effusions, left greater than right. Underlying moderate emphysematous changes also seen. 4. Age indeterminant compression deformity of T7. Correlate with point tenderness. 5. Approximately 80% stenosis of the left internal carotid artery and 60% in the right carotid bulb a nd proximal internal carotid artery as measured above.
--- NOTE | 2020-01-03 10:58 | P.PN ---
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 Also suspected to have left lower lobe pneumonia secondary to marcense and bakari, and his been treated with fluconazole and Zosyn Patient has suspicion of pulmonary embolism upon admission however it was very tiny and were not sure about its significance this as patient developed significant hematoma in his chest, I discussed the case with the pulmonary service and they recommended to hold on anticoagulation for now and patient comes VSS as an outpatient as a risk of anticoagulation more than benefits. Possible discharge in 24-48 hours 03/08/2020 Patient is clinically stable. Discussed the case with oncology team and the recommended IVC filter since he is not a candidate for anticoagulation due to significant hematoma his chest, B sites he is a cancer patient and will be at- risk of thrombosis. ENT and radiation oncology evaluated the patient and recommended staging and follow-up as an outpatient, however they recommended patient also to get some strength and stronger stamina prior to therapy and management. Patient Len for LTAC as he's has PEG and trach. Consult vascular surgery for evaluation for IVC placement Objective - Vital Signs Vital signs: Vital Signs Temp 98.6 F 01/03/20 06:20 Pulse 88 01/03/20 08:53 Resp 18 01/03/20 06:20 BP 159/80 01/03/20 06:20 Pulse Ox 98 01/03/20 06:20 Intake & Output 01/02/20 01/03/20 01/03/20 18:59 06:59 18:59 Intake Total 1246 Output Total 1700 Balance -454 Weight 83.5 kg Intake: IV 450 Fluconazole in NaCl,Iso- 50 Osm 100 mg In Saline 1 50ml.bag @ 50 mls/hr IVPB Q24H [facility] Rx#:[id number] Sodium Chloride 0.9% 1, 400 000 ml @ 50 mls/hr IV . Q20H [facility] Rx#:[id number] Intake, IV Titration 100 Amount Piperacillin-Tazobactam 3 100 .375 gm In Sodium Chloride 0.9% 100 ml @ 25 mls/hr IVPB Q8HR [facility] Rx# :[id number] Tube Feeding 696 Output: Urine 1700 Other: Voiding Method Indwelling Catheter Indwelling Catheter # Bowel Movements 2 ABP, PAP, CO, CI - Last Documented Arterial Blood Pressure 141/66 - Exam -GENERAL: The patient is alert , cooperative, poor historian, no acute distress HEENT: Pupils are round and equally reacting to light. EOMI. No scleral icterus. No conjunctival pallor. Normocephalic, atraumatic. No pharyngeal erythema. No thyromegaly. CARDIOVASCULAR: S1 and S2 present. No murmurs, rubs, or gallops. -PULMONARY: Chest is clear to auscultation, no wheezing or crackles. Trach collar into place with oxygen at 40% ABDOMEN: Soft, nontender, nondistended, normoactive bowel sounds. No palpable organomegaly. MUSCULOSKELETAL: No joint swelling or deformity. EXTREMITIES: No cyanosis, clubbing, or pedal edema. NEUROLOGICAL: Gross neurological examination did not reveal any focal deficits. SKIN: No rashes. No petechiae - Labs CBC & Chem 7: 01/02/20 05:11 01/02/20 05:11 Labs: Abnormal Lab Results - Last 24 Hours (Table) 01/02/20 01/02/20 01/03/20 Range/Units 11:40 17:59 05:52 POC Glucose (mg/dL) 119 H 114 H 124 H (75-99) mg/dL Assessment and Plan Assessment: Acute respiratory failure secondary to vocal cord mass with biopsy showing squamous cell carcinoma status post tracheostomy on trach collar The chest wall hematoma, hold anticoagulation as risks more than benefits Acute COPD exacerbation, suspicion for pulmonary embolism is small size is tiny, however patient cannot be on anticoagulation due to his hematoma Possible left lower lung pneumonia Atrial fibrillation, paroxysmal High-risk for thrombosis, per hematology/oncology team recommendation, patient is been evaluated for IVC filter Dysphagia status post PEG tube placement History of alcoholism High suspicion for alcoholic liver disease and cirrhosis on CAT scan of the chest Plan: This is a pleasant 64 years old male who presents with respiratory distress. Continue with antibiotics with fluconazole and Zosyn, continue Seroquel, hold Haldol, continue with PEG and tracheostomy. Patient might need to go to LTAC, also need to follow up outpatient with ENT and radiation oncology Consult Dr. Douglas for evaluation for possible IVC filter placement Labs and medication were reviewed.. Continue same treatment. Continue with symptomatic treatment. Resume home medication. Monitor lytes and vitals. DVT and GI prophylaxis. Further recommendations of the clinical course of the patient DVT prophylaxis: No anticoagulation because of his chest hematoma, risks more than benefits GI Prophylaxis: Ppi Prognosis is guarded
[2020-01-03 11:48] LABS: Glucose,Whole Blood 111 mg/dL (75-99)
--- NOTE | 2020-01-03 12:23 | P.CONS ---
History of Present Illness - Chief Complaint Medical debility - History of Present Illness I had the opportunity to see patient for inpatient rehab consultation with regard to medical debility. He was admitted to [facility] December 20 with shortness of breath. PE diagnosed as well as COPD exacerbation. Seen in consultation by cardiology, nephrology and Dr. Tabares. Seen by Dr. Argueta who did place PEG tube. Chest x-rays followed. Head and chest CT demonstrates a supraglottic mass, 80% stenosis left internal carotid and 60% stenosis right carotid bulb. PT reports moderate assistance for bed mobility and transfer and minimal assistance for gait 2 feet with roller walker. OT reports moderate assistance for upper dressing and toileting, total assistance for upper dressing, maximal assistance for bathing and transfers. Previous functional history as elicited patient: 64-year-old right-handed white male who is lives and 2 floor home with . does cooking, laundry, driving. Patient retired/disabled. Describes independent with standing shower and gait without device. History of heavy smoking and 10 beers a day. Review of Systems Review of systems: ENT: Denies sneezes or discharge. Eyes: Denies discharge or photophobia. Cardiac: Denies chest pain or palpitation. Pulmonary: Shortness of breath. Gastrointestinal: Denies nausea, emesis, constipation, diarrhea. Genitourinary: Denies discharge or frequency. Musculoskeletal: Denies muscle or bone aches. Neurologic: General weakness. Endocrine: Denies shakes or sweats. Oncology: Denies cancers. Dermatologic: Denies rash, itching, pruritus. ALLERGY/immunology: Denies sneezes, rashes. Past Medical History Past Medical History: COPD, Deep Vein Thrombosis (DVT), GERD/Reflux, Hyperlipidemia, Hypertension, Liver Disease, Pneumonia, Pulmonary Embolus (PE) Additional Past Medical History / Comment(s): Arthritis History of Any Multi-Drug Resistant Organisms: None Reported Past Surgical History: Unable to Obtain Additional Past Surgical History / Comment(s): COLONOSCOPY. BILAT CATARACTS REMOVED Past Anesthesia/Blood Transfusion Reactions: No Reported Reaction Past Psychological History: Anxiety Smoking Status: Current every day smoker Past Alcohol Use History: Unable to Obtain, Daily Additional Past Alcohol Use History / Comment(s): SMOKES 1 PPD SINCE ABOUT AGE 12. DRINKS 10 BEERS DAILY Past Drug Use History: Unable to Obtain, Marijuana - Past Family History Mother Family Medical History: Hypertension Father History Unknown: Yes Family Medical History: Hypertension Medications and Allergies Home Medications Medication Instructions Recorded Confirmed Type Atorvastatin [Lipitor] 20 mg PO DAILY 07/05/18 12/21/19 History Cholecalciferol [Vitamin D3] 1,000 unit PO BID 07/05/18 12/21/19 History Furosemide [Lasix] 40 mg PO DAILY 07/05/18 12/21/19 History Multivitamin [Men's Multi-Vitamin] 1 tab PO DAILY 07/05/18 12/21/19 History Galvin-3 Fatty Acids/Fish Oil [Fish 2 cap PO DAILY 07/05/18 12/21/19 History Oil 1,000 mg Softgel] Potassium Chloride [K-Tab ER] 10 meq PO DAILY 07/05/18 12/21/19 History Ranitidine HCl [Zantac] 150 mg PO DAILY 07/05/18 12/21/19 History Spironolactone 50 mg PO DAILY 07/05/18 12/21/19 History cloNIDine HCL [Catapres] 0.2 mg PO BID 07/05/18 12/21/19 History traMADol HCl [Ultram] 50 mg PO BID PRN 07/05/18 12/21/19 History Amoxic-Pot Clav 875-125Mg 1 tab PO BID 12/21/19 12/21/19 History [Augmentin 875-125] Clopidogrel Bisulfate [Plavix] 75 mg PO DAILY 12/21/19 12/21/19 History Metoprolol Tartrate [Lopressor] 50 mg PO DAILY 12/21/19 12/21/19 History diphenhydrAMINE [Benadryl] 25 mg PO DAILY PRN 12/21/19 12/21/19 History predniSONE See Taper PO DAILY 12/21/19 12/21/19 History Allergies Allergy/AdvReac Type Severity Reaction Status Date / Time lisinopril Allergy Swelling Verified 12/21/19 21:45 acetaminophen [From Tylenol] AdvReac LIVER Verified 12/21/19 21:45 PROBLEMS PER NSAIDS (Non-Steroidal AdvReac LIVER Verified 12/21/19 21:45 Anti-Inflamma PROBLEMS PER Physical Exam Vitals: Vital Signs Temp Pulse Pulse Resp BP BP Pulse Ox 01/03/20 12:06 84 03/19/20 11:58 84 01/03/20 08:53 88 01/03/20 08:41 80 01/03/20 08:40 80 01/03/20 08:32 80 01/03/20 06:20 98.6 F 85 18 159/80 98 01/03/20 00:43 99 01/02/20 22:21 80 132/72 99 01/02/20 21:32 98.7 F 96 16 170/68 99 01/02/20 20:47 132 H 17 168/75 98 01/02/20 20:03 78 01/02/20 19:50 78 01/02/20 19:38 78 01/02/20 18:05 142/73 01/02/20 16:13 78 01/02/20 16:02 74 Intake and Output 01/02/20 01/03/20 01/03/20 22:59 06:59 14:59 Intake Total 282 964 Output Total 700 1000 Balance -418 -36 Intake: IV 50 400 Fluconazole in NaCl,Iso- 50 Osm 100 mg In Saline 1 50ml.bag @ 50 mls/hr IVPB Q24H [facility] Rx#:[id number] Sodium Chloride 0.9% 1, 400 000 ml @ 50 mls/hr IV . Q20H [facility] Rx#:[id number] Intake, IV Titration 100 Amount Piperacillin-Tazobactam 3 100 .375 gm In Sodium Chloride 0.9% 100 ml @ 25 mls/hr IVPB Q8HR [facility] Rx# :[id number] Tube Feeding 232 464 Output: Urine 700 1000 Other: Voiding Method Indwelling Catheter Indwelling Catheter # Bowel Movements 2 Weight 83.5 kg Skin: Good color, texture, turgor. General: Thin build and comfortable appearance. Head: Normocephalic, atraumatic. Eyes: Symmetric. Pupils equal round. Ears: Symmetric. Hearing within normal limits. Mouth: Clear. Neck: Supple. Carotid without bruit. Trach mask and oxygen. Cardiac: Regular rate and rhythm. Lungs: Clear anteriorly and posteriorly. Abdomen: Soft active nontender. Extremities: Normal tone. Similar limbs. Neurological: Mental status: Alert, cooperative, pleasant. Cranial nerves: Symmetric facial tone and trapezius. Motor: Normal strength and isolation all 4 limbs. Sensation: Intact throughout. DTRs: Symmetric and equal throughout. Mobility: Sits and stands with assistance. 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 Medical debility. 2. Pulmonary embolus with history of previous PE and DVT. 3. Throat cancer. 4. COPD. 5. Hypertension. 6. Liver disease. 7. GERD. Comments and plan: At this time PT and OT are ongoing. Safety concerns noted. History discussed possible inpatient rehabilitation and he seems agreeable if necessary. Must determine if there are any insurance criteria specific for this patient but otherwise would appear to be a rehab candidate.
[2020-01-03] MEDS: FOLIC ACID 1 MG TAB PO SCH (12:25)
[2020-01-03] MEDS: CHLORHEXIDINE GLUCONATE 15 ML CUP MUCOUS MEM SCH (12:25)
[2020-01-03] MEDS: THIAMINE 100 MG TAB PO SCH (12:25)
--- NOTE | 2020-01-03 12:31 | P.PN ---
Subjective Progress Note Date: 01/03/20 On 12/25/2019 patient seen in follow-up in the intensive care unit, he is status post urgent tracheostomy with insertion of a #8 Shiley cuffed fenestrated tracheostomy tube, suspension microlaryngoscopy with biopsy of the left true vocal cord anterior commissure left laryngeal mass and right true vocal cord. Pathology report is pending, this morning he seen in the intensive care unit, his trach is connected to the ventilator, on assist-control mode of ventilation with a rate of 14, tidal volume of 400, FiO2 of 50% and PEEP of 8, this morning's blood gas was reviewed showing pO2 of 78, pCO2 of 39, and pH of 7.38, this was done and FiO2 of 40%. Patient remains sedated, on 50 mics per kilo per minute of depressive and, and maintenance IV fluids of 0.9 normal saline at a rate of 50 ML per hour, no vasoactive infusions, he is in sinus mechanism, slightly tachycardic, with a rate of 95-110 BPM, blood pressure stable, 132/58, O2 sat is 98%. This morning's chest x-ray was reviewed showing a left lower lobe atelectasis and associated effusion versus pneumonia, apical pleural calcification consider old granulomatous disease or asbestos related disease on a background of underlying emphysema. Today's labs have been reviewed, showing white blood cell count of 17.1, hemoglobin is 6.6 patient is receiving 1 unit of packed red blood cells this morning, serum sodium is improving, up to 128 on tod ay's labs, the rest of the electrolytes were within normal limits, and renal profile is stable with creatinine of 1.35. Antibiotic coverage is in the form of Zosyn, sputum culture showed moderate gram-negative bacilli, and a few budding yeast. Final cultures pending, patient has been afebrile On 01/02/2020 patient seen in follow-up on 9 Gen. oncology floor. he is resting comfortably in bed, he is sleeping but easily wakes up and he is shaking his head yes or no appropriately to questions. She denies any distress, denies any shortness of breath, he is on 40% trach collar, physical exam reveals diminished breath sounds, but no rhonchi, no wheezing. Patient has an ineffective cough and he is able to clear yellowish colored phlegm out of the tracheostomy, he remains on Zosyn for Serratia marcescens in the sputum culture. He is receiving tube feedings through his PEG tube. No acute events overnight, patient has been working with physical therapy, does get impulsive at times with poor safety judgment and we'll attempt to get up unassisted and for that reason a water safety teacher has been placed at the bedside. Patient has been cleared by ENT service for discharge to long-term care facility the plan of starting radiation treatments once patient is stronger and his nutritional status has improved On 01/03/2020 patient seen in follow-up on general medical oncology floor, she is sitting up in a chair, he is awake and alert, he is on 28% trach collar and the pulse ox of 98%, he is afebrile, he remains on Zosyn for Serratia marcescens in sputum cultures, hemodynamically patient is stable, denies any worsening dyspnea, he has been able to clear baker colored and yellow colored phlegm. Sounds reveal diminished breath sounds at the bases, no rhonchi, no wheezing, neck and chest CT were completed showing fullness of the left supraglottic larynx filling the left piriform sinus, the true and false vocal cords were collapsed and suboptimally evaluated, no suspicious adenopathy of the neck or mediastinum, solitary lingular pulmonary nodule measuring 5 mm and 2 spiculated densities in the lingula that may represent atelectasis or nodule, multifocal atelectasis seen in the lungs as moderate pleural effusions, left greater than right, underlying moderate emphysematous changes were also seen. he remains off anticoagulation for recent history of pulmonary embolism, still has a large left truncal hematoma and scrotal hematoma, and viscous surgery has been consulted for possibility of IVC filter insertion today. Objective - Vital Signs Vital signs: Vital Signs Temp 98.1 F 01/03/20 12:02 Pulse 84 01/03/20 12:06 Resp 16 01/03/20 12:02 BP 121/61 01/03/20 12:02 Pulse Ox 100 01/03/20 12:02 Intake & Output 01/02/20 01/03/20 01/03/20 18:59 06:59 18:59 Intake Total 1246 Output Total 1700 Balance -454 Weight 83.5 kg Intake: IV 450 Fluconazole in NaCl,Iso- 50 Osm 100 mg In Saline 1 50ml.bag @ 50 mls/hr IVPB Q24H [facility] Rx#:[id number] Sodium Chloride 0.9% 1, 400 000 ml @ 50 mls/hr IV . Q20H [facility] Rx#:[id number] Intake, IV Titration 100 Amount Piperacillin-Tazobactam 3 100 .375 gm In Sodium Chloride 0.9% 100 ml @ 25 mls/hr IVPB Q8HR [facility] Rx# :[id number] Tube Feeding 696 Output: Urine 1700 Other: Voiding Method Indwelling Catheter Indwelling Catheter # Bowel Movements 2 ABP, PAP, CO, CI - Last Documented Arterial Blood Pressure 141/66 - Exam GENERAL EXAM: Awake and alert 64-year-old white male, with a #8 Shiley cuffed fenestrated tracheostomy on 28% trach collar HEAD: Normocephalic/atraumatic. EYES: Normal reaction of pupils, equal size. Conjunctiva pink, sclera white. NOSE: Clear with pink turbinates. THROAT: No erythema or exudates. NECK: No masses, no JVD, no thyroid enlargement, no adenopathy. CHEST: No chest wall deformity. Symmetrical expansion. LUNGS: Equal air entry with no crackles, wheeze, rhonchi or dullness. Diminished breath sounds at the bases CVS: Regular rate and rhythm, normal S1 and S2, no gallops, no murmurs, no rubs ABDOMEN: Soft, nontender. No hepatosplenomegaly, normal bowel sounds, no guarding or rigidity. PEG tube is present in the left abdomen EXTREMITIES: No clubbing, no edema, no cyanosis, 2+ pulses and upper and lower extremities. MUSCULOSKELETAL: Muscle strength and tone normal. SPINE: No scoliosis or deformity SKIN: Large left lateral chest hematoma has been outlined with a marker, with the edges feeding and judging by the outlying there has been no increase in the size, scrotal hematoma CENTRAL NERVOUS SYSTEM: moves extremities, does not open eyes to voice. No focal deficits, tone is normal in all 4 extremities. - Labs CBC & Chem 7: 01/02/20 05:11 01/02/20 05:11 Labs: Abnormal Lab Results - Last 24 Hours (Table) 01/02/20 01/03/20 01/03/20 Range/Units 17:59 05:52 11:47 POC Glucose (mg/dL) 114 H 124 H 111 H (75-99) mg/dL Assessment and Plan Plan: Assessment: Acute hypoxic respiratory failure secondary to 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 Left lower lobe pneumonia secondary to Serratia marcescens, remains on IV Zosyn. Chest hematoma, currently inactive. Pulmonary embolism history. Questionable filling defect in the subsegmental right lower lobe pulmonary artery branch, History of deep vein thromboses in 2018. Tobacco dependence syndrome History of alcoholism, remains on the protocol. Questionable liver cirrhosis as noted on CT of the chest Paroxysmal atrial fibrillation, anticoagulation remains on hold in view of large left-sided hematoma and scrotal hematoma Plan: Continue current medical treatment, continue IV Zosyn, no signs are stable, patient is awake and alert, he is participating with therapy, he was evaluated by Dr. Mallory for possibility of inpatient rehab at [facility] where he can also receive radiation treatments. He is anticipated to have IVC filter inserted by Dr. Douglas today. FiO2 is down to 20%, patient has an ineffective cough, clearing pink colored secretions, no fever or chills, no altered mentation, eating tube feedings, no acute events overnight, anticipate discharge to inpatient rehab once excepted I performed a history & physical examination of the patient and discussed their management with my nurse practitioner, Marifer Hernández. I reviewed the nurse practitioner's note and agree with the documented findings and plan of care. Lung sounds are positive for diminished breath sounds at the bases The findings and the impression was discussed with the patient. I attest to the documentation by the nurse practitioner. Time with Patient: Less than 30
[2020-01-03 13:18] VITALS: BMI 20.4
[2020-01-03] MEDS: SODIUM CHLORIDE 0.9% 1,000 ML IV SCH (16:28)
[2020-01-03 17:56] LABS: Glucose,Whole Blood 124 mg/dL (75-99)
--- NOTE | 2020-01-03 18:47 | CONS ---
CONSULTATION This is a 64-year-old pleasant gentleman who is well known to me from my office with history of peripheral vascular disease. The patient has been diagnosed with squamous cell carcinoma of the left vocal cord. The patient also had a tracheostomy done today. The patient has a history of chronic DVT in the past on the right side. The patient also has a significant hematoma on the left chest wall. The patient had a CT scan of the chest at [facility] which showed a right lobe PE. The patient was seen by Oncology, who recommended placement of a filter because he is not a candidate for anticoagulation. On examination, the patient was seen in his room. Patient has a trach. Chest has crackles. Abdomen is soft. The patient has peripheral vascular disease by CT angiogram which was done in my office followup. Also the patient has a chronic DVT of the right leg. I have reviewed the CT scan done at [facility] today. They did not mention any evidence of PE but did mention pleural effusion and atelectasis. I have discussed with Internal Medicine, Dr. Rios, to review the CT scan. If the patient has a PE, we are more than happy to place a filter. We will wait for their recommendation. MMODL / IJN: [id number] /
[2020-01-03] MEDS: FLUCONAZOLE IN NACL,ISO-OSM 100 MG in SALINE 1 50ML.BAG IVPB SCH (21:42)
[2020-01-04 00:23] LABS: Glucose,Whole Blood 113 mg/dL (75-99)
[2020-01-04] MEDS: INSULIN ASPART (NovoLOG) 100 UNIT/ML VIAL SQ SCH ×5 (00:25→23:52)
[2020-01-04] MEDS: CHLORHEXIDINE GLUCONATE 15 ML CUP MUCOUS MEM SCH ×3 (00:27→22:10)
[2020-01-04] MEDS: PIPERACILLIN-TAZOBACTAM 3.375 GM in SODIUM CHLORIDE 0.9% 100 ML IVPB SCH ×3 (00:40→16:44)
[2020-01-04 06:08] LABS: Glucose,Whole Blood 92 mg/dL (75-99)
[2020-01-04] MEDS: BUDESONIDE 1 MG/2 ML NEBU INHALATION SCH ×2 (07:37→19:45)
[2020-01-04] MEDS: FORMOTEROL FUMARATE 20 MCG/2 ML NEBU INHALATION SCH ×2 (07:37→20:03)
[2020-01-04] MEDS: IPRATROPIUM-ALBUTEROL 3 ML NEB INHALATION SCH ×4 (07:37→19:45)
[2020-01-04 09:20] LABS: Prothrombin Time 10.1 sec (9.0-12.0)
[2020-01-04 09:25] LABS: African American GFR (CKD) >90 (>60 ml/min/1.73 sqM); Anion Gap 9 mmol/L; Blood Urea Nitrogen 13 mg/dL (9-20); Calcium 8.6 mg/dL (8.4-10.2); Carbon Dioxide 23 mmol/L (22-30); Chloride 110 mmol/L (98-107); Glucose 104 mg/dL (74-99); Non-African American GFR(CKD) >90 (>60 ml/min/1.73 sqM); Potassium 3.2 mmol/L (3.5-5.1); Sodium 142 mmol/L (137-145)
[2020-01-04] MEDS: PANTOPRAZOLE 40 MG/10 ML VIAL IVP SCH ×2 (09:30→20:21)
[2020-01-04] MEDS: ATORVASTATIN 20 MG TAB PO SCH (09:30)
[2020-01-04] MEDS: cloNIDine HCL 0.1 MG TAB PO SCH ×3 (09:30→22:10)
[2020-01-04] MEDS: METOPROLOL TARTRATE 25 MG TAB PO SCH ×2 (09:30→22:11)
[2020-01-04] MEDS: ASPIRIN 81 MG PO SCH (09:30)
[2020-01-04] MEDS: POTASSIUM BICARBONATE/CIT AC 20 MEQ TABLET.EFF PO SCH (09:31)
[2020-01-04] MEDS: amLODIPine 5 MG TAB PO SCH ×2 (09:31→22:11)
[2020-01-04] MEDS: THIAMINE 100 MG TAB PO SCH (09:31)
[2020-01-04] MEDS: QUEtiapine 50 MG TAB PO SCH ×2 (09:31→22:11)
[2020-01-04] MEDS: FOLIC ACID 1 MG TAB PO SCH (09:31)
[2020-01-04] MEDS: CHOLECALCIFEROL 1,000 UNIT TAB PO SCH ×2 (09:31→22:10)
[2020-01-04 09:32] LABS: Basophils % (A) 0 %; Eosinophils # (A) 0.1 k/uL (0-0.7); Eosinophils % (A) 1 %; HCT 29.7 % (39.0-53.0); HGB 9.5 gm/dL (13.0-17.5); Hypochromasia Slight; Lymphocytes # (A) 0.9 k/uL (1.0-4.8); Lymphocytes % (A) 8 %; MCH 33.1 pg (25.0-35.0); MCHC 31.9 g/dL (31.0-37.0); MCV 103.7 fL (80.0-100.0); Macrocytosis Moderate; Mean Platelet Volume 8.8; Monocytes # (A) 0.7 k/uL (0-1.0); Monocytes % (A) 6 %; Neutrophils # (A) 10.2 k/uL (1.3-7.7); Neutrophils % (A) 84 %; Platelet Count 179 k/uL (150-450); RBC 2.86 m/uL (4.30-5.90); RDW 14.8 % (11.5-15.5); WBC 12.2 k/uL (3.8-10.6)
[2020-01-04] MEDS: SODIUM CHLORIDE 0.9% 1,000 ML IV SCH (09:36)
[2020-01-04 11:55] LABS: Glucose,Whole Blood 108 mg/dL (75-99)
--- NOTE | 2020-01-04 13:32 | P.DS ---
Providers Date of admission: 12/21/19 17:48 Attending physician: Nima Walsh Consults: 12/21/19 16:38 Consult Physician Routine Consulting Provider: Rene Tabares Consult Reason/Comments: pulmonary embolus, copd Do you want consulting provider notified?: Yes 12/21/19 19:12 Consult Physician Routine Consulting Provider: Agustina Joseph Consult Reason/Comments: cad?? Do you want consulting provider notified?: Yes 12/22/19 11:24 Consult Physician Routine Consulting Provider: Fani Sandoval Consult Reason/Comments: low sodium Do you want consulting provider notified?: Yes 12/23/19 09:11 Consult Physician Urgent Consulting Provider: Baldomero Lawrence Consult Reason/Comments: Possible awake tracheostomy for tracheal obstruction/mass Do you want consulting provider notified?: Already Contacted 12/23/19 11:13 Consult Physician Routine Consulting Provider: Brian Solorzano Consult Reason/Comments: h/o pe Do you want consulting provider notified?: Yes 12/27/19 07:49 Consult Physician Routine Consulting Provider: Brian Solorzano Consult Reason/Comments: vocal cord ca Do you want consulting provider notified?: Yes 12/31/19 09:56 Consult Physician Routine Consulting Provider: Reagan Beltre Consult Reason/Comments: vocal cords sq cell ca Do you want consulting provider notified?: Yes 01/03/20 10:39 Consult Physician Urgent Consulting Provider: Darrin Montoay Consult Reason/Comments: [facility] inpatient rehab Do you want consulting provider notified?: Yes 01/03/20 10:44 Consult Physician Urgent Consulting Provider: Kostas Douglas Consult Reason/Comments: need ivc Filter Do you want consulting provider notified?: Yes 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 [employer] recommended IVC filter on 01/03 -Possible left lower lung pneumonia -Atrial fibrillation, paroxysmal -High-risk for thrombosis, per hematology/oncology team recommendation, patient is been evaluated for IVC filter -History of chronic DVT -Dysphagia status post PEG tube placement -History of alcoholism -High suspicion for alcoholic liver disease and cirrhosis on CAT scan of the chest Hospital course: This is a pleasant 64 years old male with past medical history of DVT, GERD, hyperlipidemia, hypertension, pulmonary embolism, atrial fibrillation, COPD, status post PEG tube, history of alcoholism and possible alcoholic liver disease, his been having extensive carcinoma hospital and has been followed by several consultants including oncology, pulmonary, cardiology and nephrology, patient is having respiratory difficulty secondary to vocal cord mass 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 Also suspected to have left lower lobe pneumonia secondary to marcescens and bakari, and his been treated with fluconazole and Zosyn. Patient has suspicion of pulmonary embolism upon admission on CAT scan from [facility], however patient developed significant hematoma in his chest, Hematology/oncology team recommended placing IVC filter, and I discussed the case with pulmonary team and they agree that the patient is high-risk for thrombosis given his findings and the fact he is a cancer patient, as per pulmonary team anticoagulation is absolutely contra indicated at this time, however in the future he can be reevaluated and restarted again, and since in the meantime he is high-risk for thrombosis it looks reasonable to place an IVC filter. Past is cussed the case with the patient was fully awake and alert he could come to get through writing and he said (yes) but asked me to talk to his miss Nichole , whom I called and discussed the case with her explaining the benefits risks and alternatives and she verbalized understanding and agreement with placing IVC filter. Also the patient and his are aware that the patient will need to follow up with ENT Dr. Baldomero Lawrence and radiation oncology Dr. Reagan Beltre who recommended rehab due to some strengthening before treatment and both patient and agree with this plan As patient goes to [facility] for inpatient rehab, we recommend patient is being followed there by oncology Dr. Solorzano and ENT Dr. Lawrence, radiation oncology Dr. Beltre services as well Also patient was instructed to follow up with pulmonary service Dr. tena as an outpatient in 1-2 weeks and he agrees Problems and management plan were discussed with the patient and he verbalized understanding and acceptance Patient was found stable and can be discharged home however he needs follow-up as an outpatient. Patient was instructed to follow up with PCP within one week and patient agrees Gen: patient is a AAOx3, no distress. Patient can't communicate through writing CVS: S1-S2, RRR, no murmur Lungs: B/L CTA, no wheezing. Tracheostomy is in place Abdomen: soft, no distention, no tenderness, positive bowel sounds. PEG tube is in place Extremity: no leg edema or induration Time spent more than 35 minutes Patient Condition at Discharge: Fair Plan - Discharge Summary Discharge Rx Participant: No New Discharge Prescriptions: New Aspirin 81 mg PO DAILY #0 chew cloNIDine HCL [Catapres] 0.1 mg PO TID tab Fluconazole in NaCl,Iso-Osm [Diflucan-Ns 200 mg/100 ml] 100 mg IVPB Q24H bag Ipratropium-Albuterol Nebulize [Duoneb 0.5 mg-3 mg/3 ml Soln] 3 ml INHALATION RT-QID ml Folic Acid 1 mg PO DAILY@1200 #0 tab Nicotine 14Mg/24Hr Patch [Habitrol] 1 patch TRANSDERM DAILY patch Metoprolol Tartrate [Lopressor] 75 mg PO BID tab amLODIPine [Norvasc] 5 mg PO BID #0 tab INSULIN ASPART (NovoLOG) [NovoLOG (formulary)] 0 unit SQ Q6H vial Formoterol Fumarate [Perforomist] 20 mcg INHALATION RT-BID nebu Chlorhexidine Gluconate [Peridex] 15 ml MUCOUS MEM BID #0 solution QUEtiapine [SEROquel] 50 mg PO BID tab Albuterol Nebulized [Ventolin Nebulized] 2.5 mg INHALATION RT-Q2H PRN ml PRN Reason: Shortness Of Breath Or Wheezing Thiamine [Vitamin B-1] 100 mg PO DAILY@1200 tab Piperacillin-Tazobactam [Zosyn] 3.375 gm IVPB Q8HR vial Continue traMADol HCl [Ultram] 50 mg PO BID PRN PRN Reason: Pain Ranitidine HCl [Zantac] 150 mg PO DAILY Cholecalciferol [Vitamin D3 (25 Mcg = 1000 Iu)] 1,000 unit PO BID Atorvastatin [Lipitor] 20 mg PO DAILY diphenhydrAMINE [Benadryl] 25 mg PO DAILY PRN PRN Reason: Allergy Symptoms Discontinued What Cheer-3 Fatty Acids/Fish Oil [Fish Oil 1,000 mg Softgel] 2 cap PO DAILY Multivitamin [Men's Multi-Vitamin] 1 tab PO DAILY cloNIDine HCL [Catapres] 0.2 mg PO BID Spironolactone 50 mg PO DAILY Potassium Chloride [K-Tab ER] 10 meq PO DAILY Furosemide [Lasix] 40 mg PO DAILY predniSONE See Taper PO DAILY Amoxic-Pot Clav 875-125Mg [Augmentin 875-125] 1 tab PO BID Metoprolol Tartrate [Lopressor] 50 mg PO DAILY Clopidogrel Bisulfate [Plavix] 75 mg PO DAILY Discharge Medication List Atorvastatin [Lipitor] 20 mg PO DAILY 07/05/18 [History] Cholecalciferol [Vitamin D3 (25 Mcg = 1000 Iu)] 1,000 unit PO BID 07/05/18 [History] Ranitidine HCl [Zantac] 150 mg PO DAILY 07/05/18 [History] traMADol HCl [Ultram] 50 mg PO BID PRN 07/05/18 [History] diphenhydrAMINE [Benadryl] 25 mg PO DAILY PRN 12/21/19 [History] Albuterol Nebulized [Ventolin Nebulized] 2.5 mg INHALATION RT-Q2H PRN ml 01/04/20 [Rx] Aspirin 81 mg PO DAILY #0 chew 01/04/20 [Rx] Chlorhexidine Gluconate [Peridex] 15 ml MUCOUS MEM BID #0 solution 01/04/20 [Rx] Fluconazole in NaCl,Iso-Osm [Diflucan-Ns 200 mg/100 ml] 100 mg IVPB Q24H bag 01/04/20 [Rx] Folic Acid 1 mg PO DAILY@1200 #0 tab 01/04/20 [Rx] Formoterol Fumarate [Perforomist] 20 mcg INHALATION RT-BID nebu 01/04/20 [Rx] INSULIN ASPART (NovoLOG) [NovoLOG (formulary)] 0 unit SQ Q6H vial 01/04/20 [Rx] Ipratropium-Albuterol Nebulize [Duoneb 0.5 mg-3 mg/3 ml Soln] 3 ml INHALATION RT-QID ml 01/04/20 [Rx] Metoprolol Tartrate [Lopressor] 75 mg PO BID tab 01/04/20 [Rx] Nicotine 14Mg/24Hr Patch [Habitrol] 1 patch TRANSDERM DAILY patch 01/04/20 [Rx] Piperacillin-Tazobactam [Zosyn] 3.375 gm IVPB Q8HR vial 01/04/20 [Rx] QUEtiapine [SEROquel] 50 mg PO BID tab 01/04/20 [Rx] Thiamine [Vitamin B-1] 100 mg PO DAILY@1200 tab 01/04/20 [Rx] amLODIPine [Norvasc] 5 mg PO BID #0 tab 01/04/20 [Rx] cloNIDine HCL [Catapres] 0.1 mg PO TID tab 01/04/20 [Rx] Follow up Appointment(s)/Referral(s): Brian Solorzano MD [STAFF PHYSICIAN] - 2 Weeks (depalletizer operator/oncologist , you may need PET scan for tumor staging, and re-evaluate to restart anticoagulation . Office states that they lisha call you with an appointment.) Reagan Beltre MD [STAFF PHYSICIAN] - 3 Weeks Baldomero Lawrence MD [STAFF PHYSICIAN] - 2 Weeks (ENT, you need radiation therapy for your tumor. The office will call you with an appointment.) Omar Aguilar DO [Primary Care Provider] - 1-2 days Rene Tabares MD [STAFF PHYSICIAN] - 2 Weeks (fleet assistant ) Discharge Disposition: HOME SELF-CARE
--- NOTE | 2020-01-04 14:07 | P.PN ---
Subjective Progress Note Date: 01/04/20 Principal diagnosis: The patient is seen today 01/04/2020 in follow-up on the regular medical floor. He is currently sitting up in a chair at the bedside. Awake and alert in no a cute distress. He remains on 28% FiO2 via trach collar with oxygen saturations in the 90s. He is currently afebrile. Hemodynamically stable. Follow-up computed tomography scan of the neck and chest revealed fullness of the left supraglottic larynx filling the left. Forms sinus. Most likely representing primary mass or debris. No suspicious adenopathy of the neck or mediastinum. There is a solitary lingular nodule measuring 5 mm into spiculated densities in the lingula as well as areas of multifocal atelectasis. Moderate pleural effusions, left greater than right. Underlying emphysematous changes noted. Sputum culture was positive for Serratia marcescens and bakari back on 020. White count 12.2. Hemoglobin 9.5. MCV 103.7. Sodium 142. Potassium 3.2. Creatinine 0.85. Objective - Vital Signs Vital signs: Vital Signs Temp 97.9 F 01/04/20 12:45 Pulse 81 01/04/20 12:45 Resp 16 01/04/20 12:45 BP 147/72 01/04/20 12:45 Pulse Ox 97 01/04/20 12:45 Intake & Output 01/03/20 01/04/20 01/04/20 18:59 06:59 18:59 Intake Total 25 125 Output Total 1999 Balance 25 -1875 Weight 66.497 kg 82.5 kg 66.497 kg Intake: Tube Feeding 25 125 Output: Urine 1999 Other: Voiding Method Indwelling Catheter Indwelling Catheter Indwelling Catheter # Bowel Movements 2 ABP, PAP, CO, CI - Last Documented Arterial Blood Pressure 141/66 - Exam GENERAL EXAM: Awake and alert, frail, cachectic 64-year-old male patient, with a #8 Shiley cuffed fenestrated tracheostomy on 28% trach collar HEAD: Normocephalic/atraumatic. EYES: Normal reaction of pupils, equal size. Conjunctiva pink, sclera white. NOSE: Clear with pink turbinates. THROAT: No erythema or exudates. NECK: No masses, no JVD, no thyroid enlargement, no adenopathy. CHEST: No chest wall deformity. Symmetrical expansion. LUNGS: Equal air entry with no crackles, wheeze, rhonchi or dullness. Diminished breath sounds at the bases CVS: Regular rate and rhythm, normal S1 and S2, no gallops, no murmurs, no rubs ABDOMEN: Soft, nontender. No hepatosplenomegaly, normal bowel sounds, no guarding or rigidity. PEG tube is present in the left abdomen EXTREMITIES: No clubbing, no edema, no cyanosis, 2+ pulses and upper and lower extremities. MUSCULOSKELETAL: Muscle strength and tone normal. SPINE: No scoliosis or deformity SKIN: Large left lateral chest hematoma has been outlined with a marker, with the edges feeding and judging by the outlying there has been no increase in the size, scrotal hematoma CENTRAL NERVOUS SYSTEM: moves extremities, does not open eyes to voice. No focal deficits, tone is normal in all 4 extremities. - Labs CBC & Chem 7: 01/04/20 07:14 01/04/20 07:30 Labs: Abnormal Lab Results - Last 24 Hours (Table) 01/03/20 01/04/20 01/04/20 Range/Units 17:55 00:04 07:14 WBC 12.2 H (3.8-10.6) k/uL RBC 2.86 L (4.30-5.90) m/uL Hgb 9.5 L (13.0-17.5) gm/dL Hct 29.7 L (39.0-53.0) % MCV 103.7 H (80.0-100.0) fL Neutrophils # 10.2 H (1.3-7.7) k/uL Lymphocytes # 0.9 L (1.0-4.8) k/uL Potassium (3.5-5.1) mmol/L Chloride (98-107) mmol/L Glucose (74-99) mg/dL POC Glucose (mg/dL) 124 H 113 H (75-99) mg/dL 01/04/20 01/04/20 Range/Units 07:30 11:53 WBC (3.8-10.6) k/uL RBC (4.30-5.90) m/uL Hgb (13.0-17.5) gm/dL Hct (39.0-53.0) % MCV (80.0-100.0) fL Neutrophils # (1.3-7.7) k/uL Lymphocytes # (1.0-4.8) k/uL Potassium 3.2 L (3.5-5.1) mmol/L Chloride 110 H (98-107) mmol/L Glucose 104 H (74-99) mg/dL POC Glucose (mg/dL) 108 H (75-99) mg/dL Assessment and Plan Assessment: Acute hypoxic respiratory failure secondary to 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 Left lower lobe pneumonia secondary to Serratia marcescens, remains on IV Zosyn. Chest hematoma, currently inactive. Pulmonary embolism history. Questionable filling defect in the subsegmental right lower lobe pulmonary artery branch, History of deep vein thromboses in 2018. Tobacco dependence syndrome History of alcoholism, remains on the protocol. Questionable liver cirrhosis as noted on CT of the chest Paroxysmal atrial fibrillation, anticoagulation remains on hold in view of large left-sided hematoma and scrotal hematoma Plan: The patient is stable from the pulmonary standpoint. Plan is for transfer to inpatient rehabilitation at [facility]. Plan is for radiation there as well. I, the cosigning physician, performed a history & physical examination of the patient. Lungs sounds are clear. Diminished. Maintaining good O2 saturations in the 90s on 28% FiO2 via trach collar. I discussed the assessment and plan of care with my nurse practitioner, Sharifa Bennett. I attest to the above note as dictated by her.
[2020-01-04] MEDS ORDERED: fentaNYL (PF) 50 MCG/ML 2 ML AMP IVP ONE (16:50)
[2020-01-04] MEDS ORDERED: LIDOCAINE 1% INJ 10MG/ML (20 ML MDV) SQ ONE (16:52)
[2020-01-04] MEDS ORDERED: IV FLUID CONTINUATION 700 ML IV ONE (16:58)
[2020-01-04] MEDS ORDERED: IOPAMIDOL-250 100ML BTL IV ONE (17:40)
[2020-01-04 18:13] LABS: Glucose,Whole Blood 96 mg/dL (75-99)
--- NOTE | 2020-01-04 18:35 | CONS ---
CONSULTATION This is a 64-year-old gentleman who has history of DVT, history of hyperlipidemia, history of hypertension, history of pulmonary embolism, history of atrial fibrillation, history of COPD, history of liver disease. The patient has been diagnosed with CA of the vocal cord and the patient had a tracheostomy done and he has a large chest wall hematoma. I was consulted by Internal Medicine and Oncology for placement of the filter. Patient is high risk for anticoagulation. Discussed the risks and complications with the patient and the family. They all agree and we will arrange for placement of the filter. Risks and complication includes bleeding, infection, migration, thrombosis. The patient and family understands. Thank you for the consultation. CHELSEA / ALLEYN: [id number] /
--- NOTE | 2020-01-04 18:35 | PCN ---
PROCEDURE NOTE PREOP DIAGNOSES: 1. History of deep vein thrombosis. 2. History of pulmonary embolism. 3. History of carcinoma of the vocal cords. 4. History of hematoma. 5. Contraindication to anticoagulation. PROCEDURE PERFORMED: 1. Inferior vena cavogram. 2. Placement of catheter. DESCRIPTION OF PROCEDURE: This patient was brought to the boat laborer. Right and left groins were prepped and draped in the usual manner. Ultrasound-guided micropuncture introduced to the common femoral vein. Micropuncture guidewire was passed and 4-Zambian dilator advanced on top of the guidewire. With hand injection, vena cavogram was performed. The iliac vein was found to be patent. Inferior vena cava was patent and tulip veins were visualized. After that, we passed a guidewire and then we placed a sheath on the top of the guidewire below the renal vein and through the sheath we introduced the tulip filter which was deployed below the renal vein and we did the vena cavogram, which was in satisfactory position and sheath was removed, pressure was held. The patient tolerated the procedure well, transferred to his room in satisfactory condition. MMODL / IJN: [id number] /
[2020-01-04] MEDS: FLUCONAZOLE IN NACL,ISO-OSM 100 MG in SALINE 1 50ML.BAG IVPB SCH (20:21)
--- NOTE | 2020-01-04 23:14 | IR ---
EXAMINATION TYPE: IR IVC filter placement DATE OF EXAM: 01/04/2020 CLINICAL HISTORY: DVT. TECHNIQUE: Fluoroscopy. COMPARISON: None. FINDINGS: Fluoroscopic guidance was provided during IVC insertion procedure performed by Dr. Douglas . A total of 3.6 minutes of fluoroscopic time was utilized during the procedure and 3 cine runs are acquired. Please refer to procedure note for further details as I was not present nor performed procedure. IMPRESSION: As Above.
[2020-01-04 23:36] LABS: Glucose,Whole Blood 87 mg/dL (75-99)
[2020-01-05] MEDS: PIPERACILLIN-TAZOBACTAM 3.375 GM in SODIUM CHLORIDE 0.9% 100 ML IVPB SCH ×2 (00:35→09:48)
[2020-01-05 05:43] VITALS: BP 148/69; RESP 18; TEMP 98.8
[2020-01-05 06:10] LABS: Glucose,Whole Blood 139 mg/dL (75-99)
[2020-01-05] MEDS: INSULIN ASPART (NovoLOG) 100 UNIT/ML VIAL SQ SCH (06:16)
[2020-01-05] MEDS: BUDESONIDE 1 MG/2 ML NEBU INHALATION SCH (08:35)
[2020-01-05] MEDS: FORMOTEROL FUMARATE 20 MCG/2 ML NEBU INHALATION SCH (08:35)
[2020-01-05] MEDS: IPRATROPIUM-ALBUTEROL 3 ML NEB INHALATION SCH ×2 (08:35→12:24)
[2020-01-05] MEDS: PANTOPRAZOLE 40 MG/10 ML VIAL IVP SCH (09:48)
[2020-01-05] MEDS: POTASSIUM BICARBONATE/CIT AC 20 MEQ TABLET.EFF PO SCH (09:48)
[2020-01-05] MEDS: amLODIPine 5 MG TAB PO SCH (09:48)
[2020-01-05] MEDS: METOPROLOL TARTRATE 25 MG TAB PO SCH (09:48)
[2020-01-05] MEDS: CHOLECALCIFEROL 1,000 UNIT TAB PO SCH (09:48)
[2020-01-05] MEDS: cloNIDine HCL 0.1 MG TAB PO SCH (09:48)
[2020-01-05] MEDS: ASPIRIN 81 MG PO SCH (09:48)
[2020-01-05] MEDS: QUEtiapine 50 MG TAB PO SCH (09:48)
[2020-01-05] MEDS: CHLORHEXIDINE GLUCONATE 15 ML CUP MUCOUS MEM SCH (09:49)
[2020-01-05] MEDS: ATORVASTATIN 20 MG TAB PO SCH (09:49)
--- NOTE | 2020-01-05 10:33 | P.DS ---
Providers Date of admission: 12/21/19 17:48 Attending physician: Nima Walsh Consults: 12/21/19 16:38 Consult Physician Routine Consulting Provider: Rene Tabares Consult Reason/Comments: pulmonary embolus, copd Do you want consulting provider notified?: Yes 12/21/19 19:12 Consult Physician Routine Consulting Provider: Agustina Joseph Consult Reason/Comments: cad?? Do you want consulting provider notified?: Yes 12/22/19 11:24 Consult Physician Routine Consulting Provider: Fani Sandoval Consult Reason/Comments: low sodium Do you want consulting provider notified?: Yes 12/23/19 09:11 Consult Physician Urgent Consulting Provider: Baldomero Lawrence Consult Reason/Comments: Possible awake tracheostomy for tracheal obstruction/mass Do you want consulting provider notified?: Already Contacted 12/23/19 11:13 Consult Physician Routine Consulting Provider: Brian Solorzano Consult Reason/Comments: h/o pe Do you want consulting provider notified?: Yes 12/27/19 07:49 Consult Physician Routine Consulting Provider: Brian Solorzano Consult Reason/Comments: vocal cord ca Do you want consulting provider notified?: Yes 12/31/19 09:56 Consult Physician Routine Consulting Provider: Reagan Beltre Consult Reason/Comments: vocal cords sq cell ca Do you want consulting provider notified?: Yes 01/03/20 10:39 Consult Physician Urgent Consulting Provider: Darrin Montoya Consult Reason/Comments: [facility] Do you want consulting provider notified?: Yes 01/03/20 10:44 Consult Physician Urgent Consulting Provider: Kostas Douglas Consult Reason/Comments: need ivc Filter Do you want consulting provider notified?: Yes Primary care [facility]: [facility] Course: iagnoses: -Acute respiratory failure secondary to vocal 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 Milling Planer Operator recommended IVC filter on 01/03 -Possible left lower lung pneumonia -Atrial fibrillation, paroxysmal -High-risk for thrombosis, per hematology/oncology team recommendation, patient is been evaluated for IVC filter -History of chronic DVT -Dysphagia status post PEG tube placement -History of alcoholism -High suspicion for alcoholic liver disease and cirrhosis on CAT scan of the chest Hospital course: This is a pleasant 64 years old male with past medical history of DVT, GERD, hyperlipidemia, hypertension, pulmonary embolism, atrial fibrillation, COPD, status post PEG tube, history of alcoholism and possible alcoholic liver disease, his been having extensive carcinoma hospital and has been followed by several consultants including oncology, pulmonary, cardiology and nephrology, patient is having respiratory difficulty secondary to vocal cord mass 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 Also suspected to have left lower lobe pneumonia secondary to marcescens and bakari, and his been treated with fluconazole and Zosyn. Patient has suspicion of pulmonary embolism upon admission on CAT scan from [facility], however patient developed significant hematoma in his chest, Hematology/oncology team recommended placing IVC filter, and I discussed the case with pulmonary team and they agree that the patient is high-risk for thrombosis given his findings and the fact he is a cancer patient, as per pulmonary team anticoagulation is absolutely contra indicated at this time, however in the future he can be reevaluated and restarted again, and since in the meantime he is high-risk for thrombosis it looks reasonable to place an IVC filter. Past is cussed the case with the patient was fully awake and alert he could come to get through writing and he said (yes) but asked me to talk to his miss Nichole , whom I called and discussed the case with her explaining the benefits risks and alternatives and she verbalized understanding and agreement with placing IVC filter. Also the patient and his are aware that the patient will need to follow up with ENT Dr. Baldomero Lawrence and radiation oncology Dr. Reagan Beltre who recommended rehab due to some strengthening before treatment and both patient and agree with this plan As patient goes to [facility] for inpatient rehab, we recommend patient is being followed there by oncology Dr. Solorzano and ENT Dr. Lawrence, radiation oncology Dr. Beltre services as well Also patient was instructed to follow up with pulmonary service Dr. tena as an outpatient in 1-2 weeks and he agrees Problems and management plan were discussed with the patient and he verbalized understanding and acceptance Patient was found stable and can be discharged home however he needs follow-up as an outpatient. Patient was instructed to follow up with PCP within one week and patient agrees Gen: patient is a AAOx3, no distress. Patient can't communicate through writing CVS: S1-S2, RRR, no murmur Lungs: B/L CTA, no wheezing. Tracheostomy is in place Abdomen: soft, no distention, no tenderness, positive bowel sounds. PEG tube is in place Extremity: no leg edema or induration Time spent more than 35 minutes Patient Condition at Discharge: Fair Plan - Discharge Summary Discharge Rx Participant: No New Discharge Prescriptions: New Aspirin 81 mg PO DAILY #0 chew cloNIDine HCL [Catapres] 0.1 mg PO TID tab Fluconazole in NaCl,Iso-Osm [Diflucan-Ns 200 mg/100 ml] 100 mg IVPB Q24H bag Ipratropium-Albuterol Nebulize [Duoneb 0.5 mg-3 mg/3 ml Soln] 3 ml INHALATION RT-QID ml Folic Acid 1 mg PO DAILY@1200 #0 tab Nicotine 14Mg/24Hr Patch [Habitrol] 1 patch TRANSDERM DAILY patch Metoprolol Tartrate [Lopressor] 75 mg PO BID tab amLODIPine [Norvasc] 5 mg PO BID #0 tab INSULIN ASPART (NovoLOG) [NovoLOG (formulary)] 0 unit SQ Q6H vial Formoterol Fumarate [Perforomist] 20 mcg INHALATION RT-BID nebu Chlorhexidine Gluconate [Peridex] 15 ml MUCOUS MEM BID #0 solution QUEtiapine [SEROquel] 50 mg PO BID tab Albuterol Nebulized [Ventolin Nebulized] 2.5 mg INHALATION RT-Q2H PRN ml PRN Reason: Shortness Of Breath Or Wheezing Thiamine [Vitamin B-1] 100 mg PO DAILY@1200 tab Piperacillin-Tazobactam [Zosyn] 3.375 gm IVPB Q8HR vial Continue traMADol HCl [Ultram] 50 mg PO BID PRN PRN Reason: Pain Ranitidine HCl [Zantac] 150 mg PO DAILY Cholecalciferol [Vitamin D3 (25 Mcg = 1000 Iu)] 1,000 unit PO BID Atorvastatin [Lipitor] 20 mg PO DAILY diphenhydrAMINE [Benadryl] 25 mg PO DAILY PRN PRN Reason: Allergy Symptoms Discontinued [place]-3 Fatty Acids/Fish Oil [Fish Oil 1,000 mg Softgel] 2 cap PO DAILY Multivitamin [Men's Multi-Vitamin] 1 tab PO DAILY cloNIDine HCL [Catapres] 0.2 mg PO BID Spironolactone 50 mg PO DAILY Potassium Chloride [K-Tab ER] 10 meq PO DAILY Furosemide [Lasix] 40 mg PO DAILY predniSONE See Taper PO DAILY Amoxic-Pot Clav 875-125Mg [Augmentin 875-125] 1 tab PO BID Metoprolol Tartrate [Lopressor] 50 mg PO DAILY Clopidogrel Bisulfate [Plavix] 75 mg PO DAILY Discharge Medication List Atorvastatin [Lipitor] 20 mg PO DAILY 07/05/18 [History] Cholecalciferol [Vitamin D3 (25 Mcg = 1000 Iu)] 1,000 unit PO BID 07/05/18 [History] Ranitidine HCl [Zantac] 150 mg PO DAILY 07/05/18 [History] traMADol HCl [Ultram] 50 mg PO BID PRN 07/05/18 [History] diphenhydrAMINE [Benadryl] 25 mg PO DAILY PRN 12/21/19 [History] Albuterol Nebulized [Ventolin Nebulized] 2.5 mg INHALATION RT-Q2H PRN ml 01/04/20 [Rx] Aspirin 81 mg PO DAILY #0 chew 01/04/20 [Rx] Chlorhexidine Gluconate [Peridex] 15 ml MUCOUS MEM BID #0 solution 01/04/20 [Rx] Fluconazole in NaCl,Iso-Osm [Diflucan-Ns 200 mg/100 ml] 100 mg IVPB Q24H bag 01/04/20 [Rx] Folic Acid 1 mg PO DAILY@1200 #0 tab 01/04/20 [Rx] Formoterol Fumarate [Perforomist] 20 mcg INHALATION RT-BID nebu 01/04/20 [Rx] INSULIN ASPART (NovoLOG) [NovoLOG (formulary)] 0 unit SQ Q6H vial 01/04/20 [Rx] Ipratropium-Albuterol Nebulize [Duoneb 0.5 mg-3 mg/3 ml Soln] 3 ml INHALATION RT-QID ml 01/04/20 [Rx] Metoprolol Tartrate [Lopressor] 75 mg PO BID tab 01/04/20 [Rx] Nicotine 14Mg/24Hr Patch [Habitrol] 1 patch TRANSDERM DAILY patch 01/04/20 [Rx] Piperacillin-Tazobactam [Zosyn] 3.375 gm IVPB Q8HR vial 01/04/20 [Rx] QUEtiapine [SEROquel] 50 mg PO BID tab 01/04/20 [Rx] Thiamine [Vitamin B-1] 100 mg PO DAILY@1200 tab 01/04/20 [Rx] amLODIPine [Norvasc] 5 mg PO BID #0 tab 01/04/20 [Rx] cloNIDine HCL [Catapres] 0.1 mg PO TID tab 01/04/20 [Rx] Follow up Appointment(s)/Referral(s): Brian Solorzano MD [STAFF PHYSICIAN] - 2 Weeks (motocross racer/oncologist , you may need PET scan for tumor staging, and re-evaluate to restart anticoagulation . Office states that they lisha call you with an appointment.) Reagan Beltre MD [STAFF PHYSICIAN] - 3 Weeks Baldomero Lawrence MD [STAFF PHYSICIAN] - 2 Weeks (ENT, you need radiation therapy for your tumor. The office will call you with an appointment.) Omar Aguilar DO [Primary Care Provider] - 1-2 days Rene Tabares MD [STAFF PHYSICIAN] - 2 Weeks (aquatics director ) Discharge Disposition: HOME SELF-CARE
[2020-01-05] MEDS: SODIUM CHLORIDE 0.9% 1,000 ML IV SCH (11:32)
[2020-01-05 12:03] LABS: Glucose,Whole Blood 169 mg/dL (75-99)
[2020-01-05 12:25] VITALS: PULSE 90
== END 2020-01-05 13:10 | DRG 3 ==
LOC: EC 15:23 → 3SCARD 17:48 → 2SICU 12-23 07:55 → 5NMEDONC 01-02 06:18
PROVIDERS: ADMIT Hospitalist; ATTEND Hospitalist
PROC: 05H633Z Insertion of Infusion Device into Left Subclavian Vein, Percutaneous Approach (ICD-10-PCS; 2019-12-23)
PROC: 03HY32Z Insertion of Monitoring Device into Upper Artery, Percutaneous Approach (ICD-10-PCS; 2019-12-23)
PROC: 0BJ08ZZ Inspection of Tracheobronchial Tree, Via Natural or Artificial Opening Endoscopic (ICD-10-PCS; 2019-12-23)
PROC: 5A1955Z Respiratory Ventilation, Greater than 96 Consecutive Hours (ICD-10-PCS; principal; 2019-12-23 10:47)
PROC: 0CBV8ZX Excision of Left Vocal Cord, Via Natural or Artificial Opening Endoscopic, Diagnostic (ICD-10-PCS; 2019-12-25)
PROC: 0CBS8ZX Excision of Larynx, Via Natural or Artificial Opening Endoscopic, Diagnostic (ICD-10-PCS; 2019-12-25)
PROC: 0B110F4 Bypass Trachea to Cutaneous with Tracheostomy Device, Open Approach (ICD-10-PCS; 2019-12-25)
PROC: 0CBT8ZX Excision of Right Vocal Cord, Via Natural or Artificial Opening Endoscopic, Diagnostic (ICD-10-PCS; 2019-12-25)
PROC: 30243N1 Transfusion of Nonautologous Red Blood Cells into Central Vein, Percutaneous Approach (ICD-10-PCS; 2019-12-25)
PROC: 0DH63UZ Insertion of Feeding Device into Stomach, Percutaneous Approach (ICD-10-PCS; 2019-12-28)
PROC: 06H03DZ Insertion of Intraluminal Device into Inferior Vena Cava, Percutaneous Approach (ICD-10-PCS; 2020-01-04)
DX: C32.0 Malignant neoplasm of glottis (principal); G93.41 Metabolic encephalopathy; I26.93 Single subsegmental thrombotic pulmonary embolism without acute cor pulmonale; J15.6 Pneumonia due to other Gram-negative bacteria; J96.01 Acute respiratory failure with hypoxia; I21.A1 Myocardial infarction type 2; D62 Acute posthemorrhagic anemia; E44.0 Moderate protein-calorie malnutrition; E87.1 Hypo-osmolality and hyponatremia; E87.2 Acidosis; F10.231 Alcohol dependence with withdrawal delirium; I82.501 Chronic embolism and thrombosis of unspecified deep veins of right lower extremity; J90 Pleural effusion, not elsewhere classified; J98.11 Atelectasis; J43.9 Emphysema, unspecified; G31.2 Degeneration of nervous system due to alcohol; E83.51 Hypocalcemia; I95.9 Hypotension, unspecified; K70.30 Alcoholic cirrhosis of liver without ascites; F17.210 Nicotine dependence, cigarettes, uncomplicated; Z68.24 Body mass index [BMI] 24.0-24.9, adult; E78.5 Hyperlipidemia, unspecified; E86.1 Hypovolemia; E87.6 Hypokalemia; I10 Essential (primary) hypertension; I48.0 Paroxysmal atrial fibrillation; I49.3 Ventricular premature depolarization; I73.9 Peripheral vascular disease, unspecified; K21.9 Gastro-esophageal reflux disease without esophagitis; R13.10 Dysphagia, unspecified; M79.81 Nontraumatic hematoma of soft tissue; F41.9 Anxiety disorder, unspecified; M19.90 Unspecified osteoarthritis, unspecified site; R26.9 Unspecified abnormalities of gait and mobility; H53.9 Unspecified visual disturbance; H91.90 Unspecified hearing loss, unspecified ear; R91.1 Solitary pulmonary nodule; E78.00 Pure hypercholesterolemia, unspecified; Z79.02 Long term (current) use of antithrombotics/antiplatelets; Z79.82 Long term (current) use of aspirin; Z79.899 Other long term (current) drug therapy; Z85.828 Personal history of other malignant neoplasm of skin; Z88.8 Allergy status to other drugs, medicaments and biological substances; Z88.6 Allergy status to analgesic agent; Z98.42 Cataract extraction status, left eye; Z98.41 Cataract extraction status, right eye; Z96.1 Presence of intraocular lens; Z87.01 Personal history of pneumonia (recurrent); Z82.49 Family history of ischemic heart disease and other diseases of the circulatory system
CPT/HCPCS: 31622; 36600; 37191; 43246; 70490; 70491; 71045; 71250; 71260; 74176; 80048; 80053; 81003; 82533; 82805; 83735; 83930; 83935; 84133; 84295; 84300; 84484; 84550; 85025; 85027; 85379; 85384; 85610; 85730; 86850; 86900; 86901; 86920; 87070; 87077; 87186; 87205; 87502; 88305; 88342; 93005; 93306; 93970; 94002; 94003; 94640; 94760; 96365; 96366; 99285

== ENCOUNTER 2020-02-21 00:10 | Inpatient (IN) | payer MEDICARE ==
[2020-02-21] MEDS ORDERED: DILTIAZEM DRIP BOLUS FROM BAG 1 MG SOLN IV ONE ×3 (01:00→04:45)
[2020-02-21] MEDS ORDERED: DEXTROSE 5% IN WATER 100 ML BAG IV ONE (01:30)
[2020-02-21] MEDS ORDERED: DILTIAZEM 100 MG VIAL.PORT IV ONE (01:30)
[2020-02-21] MEDS ORDERED: SODIUM CHLORIDE 0.9% 1,000 ML BAG ONE (01:30)
[2020-02-21] MEDS ORDERED: MORPHINE SULFATE 4 MG/ML SYRINGE ONE (01:30)
[2020-02-21] MEDS ORDERED: DILTIAZEM 125 MG in SODIUM CHLORIDE 0.9% 100 ML IV SCH (04:45)
[2020-02-21] MEDS ORDERED: ALBUTEROL NEBULIZED 2.5 MG/3 ML INHALATION PRN (09:52)
[2020-02-21] MEDS ORDERED: traMADol 50 MG TAB PO PRN (09:52)
[2020-02-21] MEDS: METOPROLOL TARTRATE 50 MG TAB PO SCH ×2 (10:48→20:51)
[2020-02-21] MEDS: APIXABAN 5 MG TAB PO SCH ×2 (10:48→20:51)
[2020-02-21] MEDS: PIPERACILLIN-TAZOBACTAM 3.375 GM in SODIUM CHLORIDE 0.9% 100 ML IVPB SCH ×3 (10:48→22:56)
[2020-02-21] MEDS: SODIUM CHLORIDE 0.9% 1,000 ML IV SCH ×2 (10:48→20:51)
[2020-02-21] MEDS: THIAMINE 100 MG TAB PO SCH (10:48)
[2020-02-21 10:54] LABS: African American GFR (CKD) >90 (>60 ml/min/1.73 sqM); Anion Gap 8 mmol/L; Blood Urea Nitrogen 16 mg/dL (9-20); Calcium 8.7 mg/dL (8.4-10.2); Carbon Dioxide 23 mmol/L (22-30); Chloride 110 mmol/L (98-107); Glucose 113 mg/dL (74-99); Magnesium 1.8 mg/dL (1.6-2.3); Non-African American GFR(CKD) >90 (>60 ml/min/1.73 sqM); Potassium 3.7 mmol/L (3.5-5.1); Sodium 141 mmol/L (137-145)
[2020-02-21] MEDS: IPRATROPIUM-ALBUTEROL 3 ML NEB INHALATION SCH ×3 (11:46→19:43)
--- NOTE | 2020-02-21 12:56 | P.HPIM ---
History of Present Illness This is a 64-year-old male transferred from [facility] for atrial fibrillation patient presented there with complaints of generalized weakness tiredness. Patient does have history of laryngeal cancer patient is status post a living ectomy and tracheostomy. Patient is having thick secretion falls swelling secretions because of which I'll obtain a sputum culture and patient will be started on Zosyn for Pseudomonas infectious disease will be consulted patient. Patient has multiple wounds on the bilateral lower extremities most of them are stage II to 3 none of them appear to be infected. Ruled out covid. Patient never had any history of atrial fibrillation. Patient denied any chest pain. Patient doesn't have any fever chills. Patient does have leukocytosis did have lactic is doses received IV fluids. And has history of multiple other medical problems including DVT,COPD Review of Systems REVIEW OF SYSTEMS: CONSTITUTIONAL: As mentioned in HPI HEENT: No recent visual problems or hearing problems. Denied any sore throat. CARDIOVASCULAR: No chest pain, orthopnea, PND, no syncope. PULMONARY: No shortness of breath, no cough, no hemoptysis. GASTROINTESTINAL: No diarrhea, no nausea, no vomiting, no abdominal pain. NEUROLOGICAL: No headaches, no weakness, no numbness. HEMATOLOGICAL: Denies any bleeding or petechiae. GENITOURINARY: Denies any burning micturition, frequency, or urgency. MUSCULOSKELETAL/RHEUMATOLOGICAL: Denies any joint pain, swelling, or any muscle pain. ENDOCRINE: Denies any polyuria or polydipsia. The rest of the 14-point review of systems is negative. Past Medical History Past Medical History: COPD, Deep Vein Thrombosis (DVT), GERD/Reflux, Hyperlipidemia, Hypertension, Liver Disease, Pneumonia, Pulmonary Embolus (PE) Additional Past Medical History / Comment(s): Arthritis, vocal cord cancer, recent PEG and trach placement - December. History of Any Multi-Drug Resistant Organisms: None Reported Past Surgical History: Unable to Obtain Additional Past Surgical History / Comment(s): COLONOSCOPY. BILAT CATARACTS REMOVED Past Anesthesia/Blood Transfusion Reactions: No Reported Reaction Past Psychological History: Anxiety Smoking Status: Former smoker Past Alcohol Use History: Unable to Obtain, Daily Additional Past Alcohol Use History / Comment(s): states pt quit smoking 2 months ago Past Drug Use History: Unable to Obtain, Marijuana - Past Family History Mother Family Medical History: Hypertension Father History Unknown: Yes Family Medical History: Hypertension Medications and Allergies Home Medications Medication Instructions Recorded Confirmed Type Atorvastatin [Lipitor] 20 mg PEG/G-TUBE DAILY 07/05/18 02/21/20 History Chlorhexidine Gluconate [Peridex] 15 ml MUCOUS MEM BID #0 solution 01/04/20 02/21/20 Rx Arformoterol Tartrate [Brovana] 15 mcg INHALATION RT-TID 02/21/20 02/21/20 History Aspirin EC [Ecotrin Low Dose] 81 mg PEG/G-TUBE DAILY 02/21/20 02/21/20 History Famotidine 20 mg PEG/G-TUBE DAILY 02/21/20 02/21/20 History Folic Acid 1 mg PEG/G-TUBE DAILY 02/21/20 02/21/20 History Metoprolol Tartrate [Lopressor] 75 mg PEG/G-TUBE BID 02/21/20 02/21/20 History QUEtiapine FUMARATE [SEROquel] 25 mg PEG/G-TUBE HS 02/21/20 02/21/20 History QUEtiapine [SEROquel] 50 mg PEG/G-TUBE HS 02/21/20 02/21/20 History Thiamine [Vitamin B-1] 100 mg PEG/G-TUBE DAILY 02/21/20 02/21/20 History amLODIPine [Norvasc] 5 mg PEG/G-TUBE BID 02/21/20 02/21/20 History cloNIDine HCL [Catapres] 0.2 mg PEG/G-TUBE BID 02/21/20 02/21/20 History Allergies Allergy/AdvReac Type Severity Reaction Status Date / Time lisinopril Allergy Swelling Verified 02/21/20 10:22 acetaminophen [From Tylenol] AdvReac LIVER Verified 02/21/20 10:22 PROBLEMS PER NSAIDS (Non-Steroidal AdvReac LIVER Verified 02/21/20 10:22 Anti-Inflamma PROBLEMS PER Physical Exam Vitals: Vital Signs Temp Pulse Pulse Resp BP Pulse Ox 02/21/20 12:14 90 02/21/20 12:00 90 02/21/20 08:30 17 96 02/21/20 08:00 98.7 F 80 17 154/71 91 L Intake and Output 02/20/20 02/21/20 02/21/20 22:59 06:59 14:59 Output Total 300 475 Balance -300 -475 Output: Urine 300 475 Other: Voiding Method Urinal # Voids 2 Weight 65.4 kg 65.4 kg PHYSICAL EXAMINATION: GENERAL: The patient is alert and oriented x3, thin built appears to be tired HEENT: Pupils are round and equally reacting to light. EOMI. No scleral icterus. No conjunctival pallor. Normocephalic, atraumatic. No pharyngeal erythema. No thyromegaly. CARDIOVASCULAR: S1 and S2 present. No murmurs, rubs, or gallops. PULMONARY: Tracheostomy in place bilateral rhonchi good air entry into bilateral lung mcgovern. No wheezing was appreciated patient has copious amounts of secretions to tracheostomy nature thick foul-smelling ABDOMEN: Soft, nontender, nondistended, normoactive bowel sounds. No palpable organomegaly. MUSCULOSKELETAL: No joint swelling or deformity. EXTREMITIES: No cyanosis, clubbing, or pedal edema. NEUROLOGICAL: Gross neurological examination did not reveal any focal deficits. SKIN: No rashes. Results CBC & Chem 7: 02/21/20 10:27 Labs: Abnormal Lab Results - Last 24 Hours (Table) 02/21/20 Range/Units 10:27 Chloride 110 H (98-107) mmol/L Glucose 113 H (74-99) mg/dL Thrombosis Risk Factor Assmnt - Choose All That Apply Any of the Below Risk Factors Present?: Yes Each Factor Represents 1 point: Sepsis (< 1month), Swollen legs (current) Other Risk Factors: Yes Each Risk Factor Represents 2 Points: Age 61-74 years, Malignancy Each Risk Factor Represents 3 Points: History of DVT/PE Other congenital or acquired thrombophilia - If yes, enter type in comment: No Thrombosis Risk Factor Assessment Total Risk Factor Score: 9 Thrombosis Risk Factor Assessment Level: High Risk Assessment and Plan Plan: -New-onset A. fib: Patient is presently rate controlled and patient came in he was in A. fib with RVR Cardizem will discontinue to increase the dose of metoprolol 200 twice a day. Patient will be started on Eliquis cardiology will be consulted echocardiogram was done recently which showed normal ejection f raction without any wall motion abnormalities. Atrial fibrillation is probably precipitated by either sepsis or dehydration -Possibility of sepsis from possible ceremonial tracheobronchitis surrenders his will be obtained infectious disease will be consulted patient was started on Zosyn empirically. No evidence of pneumonia at this time. -Lactic acidosis: Secondary to infection or dehydration laryngeal cancer status post laryngectomy. Patient is supposed to receive chemoradiation therapy, radiation oncology and oncology will be consulted -History of DVT not and anti-correlation at home except and-gastroesophageal reflux disease -Hypertension -Hyperlipidemia -History of PE in the past GI prophylaxis with the Protonix and Pepcid
--- NOTE | 2020-02-21 15:46 | P.CONS ---
History of Present Illness - Reason for Consult Consult date: 02/21/20 recent diagnosis of head/neck cancer Requesting physician: Gali Moore - Chief Complaint cough - History of Present Illness Mr. Laurent is a very pleasant male initially seen on consult 01/03/20. His complaints consisted of upper airway congestion, cough and shortness of breath. He was treated without much improvement, he ultimately presented to [facility] with progression of symptoms as well as pain and stridor. He chest showed a right lower lobe PE, CT neck and chest showed subglottal narrowing of the trachea due to probable laryngeal mass. He was started on IV heparin developed a very large left-sided hematoma. He was transferred to [facility] and intubated to protect his airway. He seen by ENT, had tracheostomy and biopsy of the mass involving the left vocal cord with some possible crossover to the right true vocal cord. Urology positive for invasive, moderately differentiated, squamous cell carcinoma, negative for PE 16 expression. He had a prolonged hospital course, required PEG tube placement, due to persistent anemia IVC filter placed and no anticoagulation. Staging CTs did not show any evidence of metastatic disease, right lower extremity DVT was found. Patient was discharged to [facility], discharged to home mid January. PET scan 02/05/20 showed uptake only in the left laryngeal mass, SUV 12.5. He was seen by Dr. Solorzano in the office 02/12/20. At that visit they discussed the pathology, T7 lesion was felt to be benign. Standard of care concurrent chemoradiation with curative intent. Patient was due to start treatment this Tuesday. Unfortunately, over the last 2 days patient has had a progressive cough, puru lent sputum production, mild to moderate shortness of breath, chills. Patient denies nausea, vomiting, he is tolerating PEG tube feedings, no acute changes in bowel or bladder habits, no new or progressive swelling in the legs, no new pain to report. Review of Systems 14 point ROS is negative except as stated in HPI Past Medical History Past Medical History: Cancer, COPD, Deep Vein Thrombosis (DVT), GERD/Reflux, Hyperlipidemia, Hypertension, Liver Disease, Pneumonia, Pulmonary Embolus (PE) Additional Past Medical History / Comment(s): Arthritis, vocal cord cancer, recent PEG and trach placement - December [facility]. History of Any Multi-Drug Resistant Organisms: None Reported Past Surgical History: Unable to Obtain Additional Past Surgical History / Comment(s): COLONOSCOPY. BILAT CATARACTS REMOVED Past Anesthesia/Blood Transfusion Reactions: No Reported Reaction Past Psychological History: Anxiety Smoking Status: Former smoker Past Alcohol Use History: Unable to Obtain, Daily Additional Past Alcohol Use History / Comment(s): states pt quit smoking 2 months ago Past Drug Use History: Unable to Obtain, Marijuana - Past Family History Mother Family Medical History: Hypertension Father History Unknown: Yes Family Medical History: Hypertension Medications and Allergies Home Medications Medication Instructions Recorded Confirmed Type Atorvastatin [Lipitor] 20 mg PEG/G-TUBE DAILY 07/05/18 02/21/20 History Chlorhexidine Gluconate [Peridex] 15 ml MUCOUS MEM BID #0 solution 01/04/20 02/21/20 Rx Arformoterol Tartrate [Brovana] 15 mcg INHALATION RT-TID 02/21/20 02/21/20 History Aspirin EC [Ecotrin Low Dose] 81 mg PEG/G-TUBE DAILY 02/21/20 02/21/20 History Famotidine 20 mg PEG/G-TUBE DAILY 02/21/20 02/21/20 History Folic Acid 1 mg PEG/G-TUBE DAILY 02/21/20 02/21/20 History Metoprolol Tartrate [Lopressor] 75 mg PEG/G-TUBE BID 02/21/20 02/21/20 History QUEtiapine FUMARATE [SEROquel] 25 mg PEG/G-TUBE HS 02/21/20 02/21/20 History QUEtiapine [SEROquel] 50 mg PEG/G-TUBE HS 02/21/20 02/21/20 History Thiamine [Vitamin B-1] 100 mg PEG/G-TUBE DAILY 02/21/20 02/21/20 History amLODIPine [Norvasc] 5 mg PEG/G-TUBE BID 02/21/20 02/21/20 History cloNIDine HCL [Catapres] 0.2 mg PEG/G-TUBE BID 02/21/20 02/21/20 History Allergies Allergy/AdvReac Type Severity Reaction Status Date / Time lisinopril Allergy Swelling Verified 02/21/20 10:22 acetaminophen [From Tylenol] AdvReac LIVER Verified 02/21/20 10:22 PROBLEMS PER NSAIDS (Non-Steroidal AdvReac LIVER Verified 02/21/20 10:22 Anti-Inflamma PROBLEMS PER Physical Exam Vitals: Vital Signs Temp Pulse Pulse Resp BP Pulse Ox 02/21/20 12:14 90 02/21/20 12:00 90 02/21/20 08:30 17 96 02/21/20 08:00 98.7 F 80 17 154/71 91 L Intake and Output 02/20/20 02/21/20 02/21/20 22:59 06:59 14:59 Output Total 300 475 Balance -300 -475 Output: Urine 300 475 Other: Voiding Method Urinal # Voids 2 Weight 65.4 kg 65.4 kg - Constitutional General appearance: average body habitus, cooperative, mild distress - EENT Eyes: anicteric sclerae, EOMI ENT: hearing grossly normal - Neck fullness on the left side - Respiratory congested cough, thick green/yellow/bloody sputum from trach Respiratory: bilateral: rhonchi - Cardiovascular Rhythm: regular Heart sounds: normal: S1, S2 leg Peripheral Edema: bilateral: None - Gastrointestinal General gastrointestinal: no absent bowel sounds, no decreased bowel sounds, no distended, no hepatomegaly, no hyperactive bowel sounds, normal bowel sounds, no organomegaly, no rigid, no scaphoid, soft, no splenomegaly, no tenderness, no umbilical hernia, no ventral hernia - Integumentary Integumentary: normal - Neurologic Neurologic: CNII-XII intact - Musculoskeletal Musculoskeletal: generalized weakness, strength equal bilaterally - Psychiatric Psychiatric: A&O x's 3, appropriate affect, intact judgment & insight Results CBC & Chem 7: 02/21/20 10:27 Labs: Abnormal Lab Results - Last 24 Hours (Table) 02/21/20 Range/Units 10:27 Chloride 110 H (98-107) mmol/L Glucose 113 H (74-99) mg/dL Assessment and Plan (1) Tracheobronchitis Narrative/Plan: Case discussed with Internal Medicine. Pt is on treatment for the same Current Visit: Yes Status: Acute Priority: High Code(s): J40 - BRONCHITIS, NOT SPECIFIED ACUTE OR CHRONIC SNOMED Code(s): 25508392 (2) Squamous cell carcinoma of left vocal cord Narrative/Plan: Newly diagnosed. Plan was to begin treatment with weekly cisplatin and concurrent radiation next Tuesday. This will be delayed until current condition is treated and pt is improved. 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
[2020-02-21 16:37] LABS: Glucose,Whole Blood 114 mg/dL (75-99)
[2020-02-21 17:04] LABS: Basophils % (A) 0 %; Eosinophils # (A) 0.1 k/uL (0-0.7); Eosinophils % (A) 1 %; HCT 48.9 % (39.0-53.0); Hypochromasia Marked; Lymphocytes # (A) 0.9 k/uL (1.0-4.8); Lymphocytes % (A) 8 %; MCH 31.7 pg (25.0-35.0); MCHC 31.6 g/dL (31.0-37.0); MCV 100.3 fL (80.0-100.0); Mean Platelet Volume 9.3; Monocytes % (A) 8 %; Neutrophils # (A) 9.8 k/uL (1.3-7.7); Neutrophils % (A) 81 %; Platelet Count 259 k/uL (150-450); RBC 4.88 m/uL (4.30-5.90); RDW 13.5 % (11.5-15.5); WBC 12.1 k/uL (3.8-10.6)
[2020-02-21 17:05] LABS: HGB 15.5 gm/dL (13.0-17.5)
--- NOTE | 2020-02-21 17:39 | XR ---
EXAMINATION TYPE: XR chest 1V portable DATE OF EXAM: 02/21/2020 COMPARISON: 01/01/2020 HISTORY: Pneumonia. Shortness of breath. TECHNIQUE: Single frontal view of the chest is obtained. FINDINGS: Median tracheostomy tube is seen. There is shifting of the mediastinum to the right second eloisa to patient rotation. There is clearing of the previously seen left basilar opacity. Right costoph renic angle is not entirely imaged and cannot be evaluated. Patient's chin also obscures the lung api deisi. No new focal consolidation, pleural effusion or pneumothorax. No acute osseous pathology. IMPRESSION: Clearing of the left basilar pneumonia. No new focal consolidation.
[2020-02-21] MEDS: FORMOTEROL FUMARATE 20 MCG/2 ML NEBU INHALATION SCH (19:43)
[2020-02-21 20:45] LABS: Glucose,Whole Blood 159 mg/dL (75-99)
[2020-02-21] MEDS: QUEtiapine 50 MG TAB PO SCH (20:51)
[2020-02-21] MEDS ORDERED: METOPROLOL TARTRATE 50 MG TAB PO SCH (21:00)
--- NOTE | 2020-02-21 22:00 | P.CONS ---
History of Present Illness - Reason for Consult Consult date: 02/21/20 right heel wound, pneumonia Requesting physician: Gali Moore - Chief Complaint cough and shortness of breath x days - History of Present Illness Patient is 64-year male with a past medical history significant for squamous cell carcinoma of the larynx in this patient who is status post PEG and tracheostomy where the patient has been treated with chemoradiation patient now presenting to the outside facility with increasing cough and purulent secretion through his active patient was evaluated at an outside facility and the patient has been subsequently transferred to this facility for further management of underlying pneumonia on admission to the hospital patient has been afebrile patient did have an elevated white count of 12.1 his kidney function was normal colonic PCR was negative patient has been started on Zosyn infectious was consulted for further management of antibiotic therapy in addition to his right heel wound with the patient has for couple of weeks now started his previous hospital stay currently being treated with the meta honey patient seemed to have no symptoms referable to his right posterior heel wound area most information has been obtained from review the chart.nursing staff with the patient some of them provide reliable history. Review of Systems Positive point has been mentioned in HPI complete review could not be obtained because of underlying mental status Past Medical History Past Medical History: Cancer, COPD, Deep Vein Thrombosis (DVT), GERD/Reflux, Hyperlipidemia, Hypertension, Liver Disease, Pneumonia, Pulmonary Embolus (PE) Additional Past Medical History / Comment(s): Arthritis, vocal cord cancer, recent PEG and trach placement - December. History of Any Multi-Drug Resistant Organisms: None Reported Past Surgical History: Unable to Obtain Additional Past Surgical History / Comment(s): COLONOSCOPY. BILAT CATARACTS REMOVED Past Anesthesia/Blood Transfusion Reactions: No Reported Reaction Past Psychological History: Anxiety Smoking Status: Former smoker Past Alcohol Use History: Unable to Obtain, Daily Additional Past Alcohol Use History / Comment(s): states pt quit smoking 2 months ago Past Drug Use History: Unable to Obtain, Marijuana - Past Family History Mother Family Medical History: Hypertension Father History Unknown: Yes Family Medical History: Hypertension Medications and Allergies Home Medications Medication Instructions Recorded Confirmed Type Atorvastatin [Lipitor] 20 mg PEG/G-TUBE DAILY 07/05/18 02/21/20 History Chlorhexidine Gluconate [Peridex] 15 ml MUCOUS MEM BID #0 solution 01/04/20 02/21/20 Rx Arformoterol Tartrate [Brovana] 15 mcg INHALATION RT-TID 02/21/20 02/21/20 His tory Aspirin EC [Ecotrin Low Dose] 81 mg PEG/G-TUBE DAILY 02/21/20 02/21/20 History Famotidine 20 mg PEG/G-TUBE DAILY 02/21/20 02/21/20 History Folic Acid 1 mg PEG/G-TUBE DAILY 02/21/20 02/21/20 History Metoprolol Tartrate [Lopressor] 75 mg PEG/G-TUBE BID 02/21/20 02/21/20 History QUEtiapine FUMARATE [SEROquel] 25 mg PEG/G-TUBE HS 02/21/20 02/21/20 History QUEtiapine [SEROquel] 50 mg PEG/G-TUBE HS 02/21/20 02/21/20 History Thiamine [Vitamin B-1] 100 mg PEG/G-TUBE DAILY 02/21/20 02/21/20 History amLODIPine [Norvasc] 5 mg PEG/G-TUBE BID 02/21/20 02/21/20 History cloNIDine HCL [Catapres] 0.2 mg PEG/G-TUBE BID 02/21/20 02/21/20 History Allergies Allergy/AdvReac Type Severity Reaction Status Date / Time lisinopril Allergy Swelling Verified 02/21/20 10:22 acetaminophen [From Tylenol] AdvReac LIVER Verified 02/21/20 10:22 PROBLEMS PER NSAIDS (Non-Steroidal AdvReac LIVER Verified 02/21/20 10:22 Anti-Inflamma PROBLEMS PER Physical Exam Vitals: Vital Signs Temp Pulse Pulse Resp BP Pulse Ox 02/21/20 16:08 72 18 02/21/20 16:00 99.1 F 75 18 126/76 99 02/21/20 15:57 68 18 02/21/20 12:14 90 02/21/20 12:00 99 F 90 62 18 133/61 99 02/21/20 08:30 17 96 02/21/20 08:00 98.7 F 80 17 154/71 91 L Intake and Output 02/21/20 02/21/20 02/21/20 06:59 14:59 22:59 Output Total 300 475 Balance -300 -475 Output: Urine 300 475 Other: Voiding Method Urinal # Voids 2 Weight 65.4 kg 65.4 kg GENERAL DESCRIPTION: Elderly male lying in bed, no distress. No tachypnea or accessory muscle of respiration use. HEENT: Shows Pallor , no scleral icterus. Oral mucous membrane is dry. NECK: Tracheostomy site with minimal purulent drainage. LUNGS: Unlabored breathing. Coarse breath sounds bilaterally. No wheeze or crackle. HEART: S1, S2, regular rate and rhythm. ABDOMEN: Soft, no tenderness , guarding or rigidity EXTREMITIES: Left heel with a pressure ulcer necrotic base no surrounding swelling redness or any drainage sKIN: No rash, no masses palpable. NEUROLOGICAL: The patient is awake, alert, orientation could not be determined Results CBC & Chem 7: 02/21/20 10:27 02/21/20 10:27 Labs: Abnormal Lab Results - Last 24 Hours (Table) 02/21/20 02/21/20 02/21/20 Range/Units 10:27 10:27 10:27 WBC 12.1 H (3.8-10.6) k/uL MCV 100.3 H (80.0-100.0) fL Neutrophils # 9.8 H (1.3-7.7) k/uL Lymphocytes # 0.9 L (1.0-4.8) k/uL Chloride 110 H (98-107) mmol/L Glucose 113 H (74-99) mg/dL POC Glucose (mg/dL) (75-99) mg/dL C-Reactive Protein 85.0 H (<10.0) mg/L 02/21/20 Range/Units 16:36 WBC (3.8-10.6) k/uL MCV (80.0-100.0) fL Neutrophils # (1.3-7.7) k/uL Lymphocytes # (1.0-4.8) k/uL Chloride (98-107) mmol/L Glucose (74-99) mg/dL POC Glucose (mg/dL) 114 H (75-99) mg/dL C-Reactive Protein (<10.0) mg/L Assessment and Plan Assessment: 1-patient present hospital increasing shortness of breath cough with purulent secretion concern for pneumonia possible gram-negative as patient has been in out of the hospital with underlying laryngeal cancer. 2-left heel pressure ulcer no cellulitis (1) Pneumonia Current Visit: Yes Status: Acute Code(s): J18.9 - PNEUMONIA, UNSPECIFIED ORGANISM SNOMED Code(s): 031487095 (2) Pressure ulcer, heel, right, unstageable Current Visit: Yes Status: Acute Code(s): L89.610 - PRESSURE ULCER OF RIGHT HEEL, UNSTAGEABLE SNOMED Code(s): 169972499 Plan: 1-obtain a sputum for Gram stain and culture 2-Zosyn 3.375 g every 8 hours 3-filemon honey to the right heel wound followed by moist dressing keep the area of pressure We will follow on clinical condition and cultures to further adjust medication if needed Thank you for this consultation we will follow the patient along with you
[2020-02-22] MEDS: SODIUM CHLORIDE 0.9% 1,000 ML IV SCH ×2 (06:05→17:48)
[2020-02-22 06:09] LABS: Glucose,Whole Blood 138 mg/dL (75-99)
[2020-02-22 06:33] LABS: African American GFR (CKD) >90 (>60 ml/min/1.73 sqM); Anion Gap 5 mmol/L; Blood Urea Nitrogen 17 mg/dL (9-20); Calcium 8.5 mg/dL (8.4-10.2); Carbon Dioxide 24 mmol/L (22-30); Chloride 113 mmol/L (98-107); Glucose 138 mg/dL (74-99); Non-African American GFR(CKD) >90 (>60 ml/min/1.73 sqM); Potassium 3.3 mmol/L (3.5-5.1); Sodium 142 mmol/L (137-145)
[2020-02-22 06:48] LABS: HCT 30.7 % (39.0-53.0); Hypochromasia Slight; MCH 31.8 pg (25.0-35.0); MCHC 32.6 g/dL (31.0-37.0); MCV 97.5 fL (80.0-100.0); Mean Platelet Volume 8.8; Platelet Count 286 k/uL (150-450); RBC 3.15 m/uL (4.30-5.90); RDW 13.6 % (11.5-15.5); WBC 13.9 k/uL (3.8-10.6)
[2020-02-22] MEDS: FORMOTEROL FUMARATE 20 MCG/2 ML NEBU INHALATION SCH ×2 (08:09→20:29)
[2020-02-22] MEDS: IPRATROPIUM-ALBUTEROL 3 ML NEB INHALATION SCH ×4 (08:09→20:29)
[2020-02-22] MEDS ORDERED: ASPIRIN 81 MG PO SCH (09:00)
[2020-02-22] MEDS: THIAMINE 100 MG TAB PO SCH (09:37)
[2020-02-22] MEDS: APIXABAN 5 MG TAB PO SCH ×2 (09:37→21:44)
[2020-02-22] MEDS: NICOTINE 14MG/24HR PATCH TRANSDERM SCH (09:37)
[2020-02-22] MEDS: QUEtiapine 50 MG TAB PO SCH ×2 (09:37→21:44)
[2020-02-22] MEDS: METOPROLOL TARTRATE 50 MG TAB PO SCH ×2 (09:37→21:44)
[2020-02-22] MEDS: ATORVASTATIN 20 MG TAB PO SCH (09:37)
[2020-02-22] MEDS: FAMOTIDINE 20 MG TAB PO SCH (09:40)
[2020-02-22] MEDS: PIPERACILLIN-TAZOBACTAM 3.375 GM in SODIUM CHLORIDE 0.9% 100 ML IVPB SCH ×2 (09:41→17:00)
--- NOTE | 2020-02-22 11:37 | P.CRDCN ---
History of Present Illness Consult date: 02/22/20 Requesting physician: Gali Moore Consult reason: atrial fibrillation Chief complaint: Productive cough, shortness of breath, chills History of present illness: This is a 64-year-old gentleman with extensive history and a recent prolonged hospitalization in December of this year. He has a documented history of hypertension, PAD, nicotine dependence, family history of premature coronary art tammie disease, DVT and PE, GERD, IVC filter, and echocardiogram with Doppler study was performed in December which revealed a normal left ventricular systolic function. Patient also has a laryngeal mass for which the patient underwent removal and testing, the mass on the left vocal cord which came back as, cell carcinoma. The plan was for the patient to begin treatment with weekly cisplatin and concurrent radiation, this is now delayed because of this hospitalization with tracheobronchitis. Patient presented to the hospital on this occasion with symptoms of productive cough, shortness of breath, chills. Chest x-ray showed pneumonia. Blood pressure 142/60 with a heart rate 11/06/1930, respirations 18, temperature 99.5. Pro calcitonin 0.1, Rock virus not detected. White blood cell count 13.9, hemoglobin 10.0 with a platelet count of 286. On admission the patient's hemoglobin was 15.5. Sodium 142, potassium 3.3, BUN 17, creatinine 0.8. Cardiology consultation was requested for atrial fibrillation with a rapid ventricular response. There has been no EKG scanned into the system, but on review of the patient's gin inspector, it appears that he is in atrial fibrillation with a rapid ventricular response. Upon review of his records when he was here in December, he initially presented with an EKG that showed sinus rhythm with frequent PVCs, subsequent EKG did show atrial fibrillation. On his recent admission , the anticoagulation had been placed on hold because of hematoma he developed in the left side of his chest. Because of the A. fib with RVR cardiology consultation has been requested. Patient was seen in consultation by Dr. Joseph. Past Medical History Past Medical History: Cancer, COPD, Deep Vein Thrombosis (DVT), GERD/Reflux, Hyperlipidemia, Hypertension, Liver Disease, Pneumonia, Pulmonary Embolus (PE) Additional Past Medical History / Comment(s): Arthritis, vocal cord cancer, recent PEG and trach placement - December [facility]. History of Any Multi-Drug Resistant Organisms: None Reported Past Surgical History: Unable to Obtain Additional Past Surgical History / Comment(s): COLONOSCOPY. BILAT CATARACTS REMOVED Past Anesthesia/Blood Transfusion Reactions: No Reported Reaction Past Psychological History: Anxiety Smoking Status: Former smoker Past Alcohol Use History: Unable to Obtain, Daily Additional Past Alcohol Use History / Comment(s): states pt quit smoking 2 months ago Past Drug Use History: Unable to Obtain, Marijuana - Past Family History Mother Family Medical History: Hypertension Father History Unknown: Yes Family Medical History: Hypertension Medications and Allergies Home Medications Medication Instructions Recorded Confirmed Type Atorvastatin [Lipitor] 20 mg PEG/G-TUBE DAILY 07/05/18 02/21/20 History Chlorhexidine Gluconate [Peridex] 15 ml MUCOUS MEM BID #0 solution 01/04/20 02/21/20 Rx Arformoterol Tartrate [Brovana] 15 mcg INHALATION RT-TID 02/21/20 02/21/20 History Aspirin EC [Ecotrin Low Dose] 81 mg PEG/G-TUBE DAILY 02/21/20 02/21/20 History Famotidine 20 mg PEG/G-TUBE DAILY 02/21/20 02/21/20 History Folic Acid 1 mg PEG/G-TUBE DAILY 02/21/20 02/21/20 History Metoprolol Tartrate [Lopressor] 75 mg PEG/G-TUBE BID 02/21/20 02/21/20 History QUEtiapine FUMARATE [SEROquel] 25 mg PEG/G-TUBE HS 02/21/20 02/21/20 History QUEtiapine [SEROquel] 50 mg PEG/G-TUBE HS 02/21/20 02/21/20 History Thiamine [Vitamin B-1] 100 mg PEG/G-TUBE DAILY 02/21/20 02/21/20 History amLODIPine [Norvasc] 5 mg PEG/G-TUBE BID 02/21/20 02/21/20 History cloNIDine HCL [Catapres] 0.2 mg PEG/G-TUBE BID 02/21/20 02/21/20 History Allergies Allergy/AdvReac Type Severity Reaction Status Date / Time lisinopril Allergy Swelling Verified 02/21/20 10:22 acetaminophen [From Tylenol] AdvReac LIVER Verified 02/21/20 10:22 PROBLEMS PER NSAIDS (Non-Steroidal AdvReac LIVER Verified 02/21/20 10:22 Anti-Inflamma PROBLEMS PER Physical Exam Vitals: Vital Signs Temp Pulse Pulse Resp BP Pulse Ox 02/22/20 08:29 90 02/22/20 08:18 88 02/22/20 08:09 88 02/22/20 04:00 99.5 F 95 18 142/66 94 L 02/22/20 03:18 86 18 02/21/20 23:30 86 18 02/21/20 23:27 97.7 F 86 18 138/63 95 02/21/20 20:01 90 20 02/21/20 20:00 98.2 F 89 20 121/59 97 02/21/20 19:52 90 20 02/21/20 19:43 89 20 02/21/20 16:08 72 18 02/21/20 16:00 99.1 F 75 18 126/76 99 02/21/20 15:57 68 18 02/21/20 12:14 90 02/21/20 12:00 99 F 90 62 18 133/61 99 Intake and Output 02/21/20 02/22/20 02/22/20 22:59 06:59 14:59 Output Total 475 Balance -475 Output: Urine 475 Other: Voiding Method Urinal Urinal # Voids 1 PHYSICAL EXAMINATION: GENERAL: 64-year-old gentleman in no acute distress at the time of examination HEENT: Head is atraumatic, normocephalic. Pupils equal, round. Sclera anicteric. Conjunctiva are clear. Mucous membranes of the mouth are moist. Neck is supple. There is no elevated jugular venous pressure. No carotid bruit is heard. Tracheostomy in place. HEART EXAMINATION: Heart S1, S2 normal. No murmur or gallop heard. CHEST EXAMINATION: Lungs reveal bilateral coarse rhonchi, copious amounts of secretions to tracheostomy, green, foul-smelling ABDOMEN: Soft, nontender. Bowel sounds are heard. No organomegaly noted. EXTREMITIES: 2+ peripheral pulses with no evidence of peripheral edema and no calf tenderness noted. NEUROLOGIC patient is awake, alert and oriented 3 . Results 02/22/20 06:10 02/22/20 06:10 CBC 02/21/20 02/22/20 Range/Units 10:27 06:10 WBC 12.1 H 13.9 H (3.8-10.6) k/uL RBC 4.88 3.15 L (4.30-5.90) m/uL Hgb 15.5 D 10.0 L D (13.0-17.5) gm/dL Hct 48.9 30.7 L (39.0-53.0) % Plt Count 259 286 (150-450) k/uL Comprehensive Metabolic Panel 02/22/20 Range/Units 06:10 Sodium 142 (137-145) mmol/L Potassium 3.3 L (3.5-5.1) mmol/L Chloride 113 H (98-107) mmol/L Carbon Dioxide 24 (22-30) mmol/L BUN 17 (9-20) mg/dL Creatinine 0.87 (0.66-1.25) mg/dL Glucose 138 H (74-99) mg/dL Calcium 8.5 (8.4-10.2) mg/dL Current Medications Generic Name Dose Route Start Last Admin Trade Name Freq PRN Reason Stop Dose Admin Albuterol Sulfate 2.5 mg 02/21/20 09:52 Ventolin Nebulized INHALATION RT-Q2H PRN Shortness Of Breath Or Wheezing Albuterol/Ipratropium 3 ml 02/21/20 12:00 02/22/20 08:09 Duoneb 0.5 Mg-3 Mg/3 Ml Soln INHALATION 3 ml RT-QID CORY Administration Apixaban 5 mg 02/21/20 10:00 02/22/20 09:37 Eliquis PO 5 mg BID CORY Administration Aspirin 81 mg 02/22/20 09:00 02/22/20 09:37 Aspirin PO 81 mg DAILY CORY Administration Atorvastatin Calcium 20 mg 02/22/20 09:00 02/22/20 09:37 Lipitor PO 20 mg DAILY CORY Administration Famotidine 20 mg 02/22/20 09:00 02/22/20 09:40 Pepcid PO 20 mg DAILY CORY Administration Formoterol Fumarate 20 mcg 02/21/20 20:00 02/22/20 08:09 Perforomist INHALATION 20 mcg RT-BID CORY Administration Sodium Chloride 1,000 mls @ 100 mls/hr 02/21/20 10:00 02/22/20 06:05 Saline 0.9% IV 100 mls/hr .Q10H CORY Administration Piperacillin Sod/Tazobactam 100 mls @ 25 mls/hr 02/21/20 10:45 02/22/20 09:41 Sod 3.375 gm/ Sodium Chloride IVPB 25 mls/hr Q8HR CORY Administration Metoprolol Tartrate 100 mg 02/21/20 10:21 02/22/20 09:37 Lopressor PO 100 mg BID CORY Administration Nicotine 1 patch 02/22/20 09:00 02/22/20 09:37 Habitrol 14mg/24hr Patch TRANSDERM 1 patch DAILY CORY Administration Quetiapine Fumarate 50 mg 02/21/20 21:00 02/22/20 09:37 Seroquel PO 50 mg BID CORY Administration Thiamine HCl 100 mg 02/21/20 12:00 02/22/20 09:37 Vitamin B-1 PO 100 mg DAILY@1200 CORY Administration Tramadol HCl 50 mg 02/21/20 09:52 Ultram PO BID PRN Pain Intake and Output 02/21/20 02/22/20 02/22/20 22:59 06:59 14:59 Output Total 475 Balance -475 Output: Urine 475 Other: Voiding Method Urinal Urinal # Voids 1 02/22/20 06:10 02/22/20 06:10 EKG Interpretations (text) No EKG has been scanned into the chart, gin inspector shows atrial fibrillation with a rapid ventricular response. 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 Continue metoprolol 100 mg by mouth twice a day consider the addition of calcium channel magdalena for more optimal heart rate control if necessary. Further recommendations to follow. We will also check a TSH level. Patient had a recent echocardiogram with Doppler study performed in December that revealed a normal left ventricular systolic function. DNP note has been reviewed, I agree with a documented findings and plan of care. Patient was seen and examined.
[2020-02-22 11:46] LABS: Glucose,Whole Blood 166 mg/dL (75-99)
--- NOTE | 2020-02-22 12:27 | P.PN ---
Subjective 64-year-old male transferred from [facility] for atrial fibrillation patient presented there with complaints of generalized weakness tiredness. Patient does have history of laryngeal cancer patient is status post a living ectomy and tracheostomy. Patient is having thick secretion falls swelling secretions because of which I'll obtain a sputum culture and patient will be started on Zosyn for Pseudomonas infectious disease will be consulted patient. Patient has multiple wounds on the bilateral lower extremities most of them are stage II to 3 none of them appear to be infected. Ruled out covid. Patient never had any history of atrial fibrillation. Patient denied any chest pain. Patient doesn't have any fever chills. Patient does have leukocytosis did have lactic is doses received IV fluids. And has history of multiple other medical problems including DVT,COPD. 02/22/2020 Patient is in and out of the A. fib. Patient's secretions from the endotracheal tube are bit better today with the humidification, IV antibiotics sputum cultures are pending. Patient was evaluated by cardiology. Patient is supposed to receive chemoradiation therapy on Tuesday because of which the oncology and radiation oncology evaluated the patient. Constitutional: Denied any fatigue denied any fever. Cardio vascular: denied any chest pain, palpitations Gastrointestinal denied any nausea vomiting Pulmonary: Denied any shortness of breath cough Neurologic denied any new focal deficits All inpatient medications were reviewed and appropriate changes in these medications as dictated in the interval history and assessment and plan. Objective - Vital Signs Vital signs: Vital Signs Temp 99.5 F 02/22/20 04:00 Pulse 90 02/22/20 08:29 Resp 18 02/22/20 04:00 BP 142/66 02/22/20 04:00 Pulse Ox 94 L 02/22/20 04:00 Intake & Output 02/21/20 02/22/20 02/22/20 18:59 06:59 18:59 Output Total 475 475 475 Balance -475 -475 -475 Weight 65.4 kg 65.4 kg Output: Urine 475 475 475 Other: Voiding Method Urinal Urinal # Voids 2 1 - Exam PHYSICAL EXAMINATION: GENERAL: The patient is alert and oriented x3, thin built appears to be tired HEENT: Pupils are round and equally reacting to light. EOMI. No scleral icterus. No conjunctival pallor. Normocephalic, atraumatic. No pharyngeal erythema. No thyromegaly. CARDIOVASCULAR: S1 and S2 present. No murmurs, rubs, or gallops. PULMONARY: Tracheostomy in place bilateral rhonchi good air entry into bilateral lung mcgovern. No wheezing was appreciated patient has copious amounts of secretions to tracheostomy nature thick foul-smelling secretions look better today ABDOMEN: Soft, nontender, nondistended, normoactive bowel sounds. No palpable organomegaly. MUSCULOSKELETAL: No joint swelling or deformity. EXTREMITIES: No cyanosis, clubbing, or pedal edema. NEUROLOGICAL: Gross neurological examination did not reveal any focal deficits. SKIN: No rashes. - Labs CBC & Chem 7: 02/22/20 06:10 02/22/20 06:10 Labs: Abnormal Lab Results - Last 24 Hours (Table) 02/21/20 02/21/20 02/21/20 Range/Units 10:27 10:27 10:27 WBC 12.1 H (3.8-10.6) k/uL RBC (4.30-5.90) m/uL Hgb (13.0-17.5) gm/dL Hct (39.0-53.0) % MCV 100.3 H (80.0-100.0) fL Neutrophils # 9.8 H (1.3-7.7) k/uL Lymphocytes # 0.9 L (1.0-4.8) k/uL Potassium (3.5-5.1) mmol/L Chloride (98-107) mmol/L Glucose (74-99) mg/dL POC Glucose (mg/dL) (75-99) mg/dL C-Reactive Protein 85.0 H (<10.0) mg/L Procalcitonin 0.10 H (0.02-0.09) ng/mL 02/21/20 02/21/20 02/22/20 Range/Units 16:36 20:38 06:06 WBC (3.8-10.6) k/uL RBC (4.30-5.90) m/uL Hgb (13.0-17.5) gm/dL Hct (39.0-53.0) % MCV (80.0-100.0) fL Neutrophils # (1.3-7.7) k/uL Lymphocytes # (1.0-4.8) k/uL Potassium (3.5-5.1) mmol/L Chloride (98-107) mmol/L Glucose (74-99) mg/dL POC Glucose (mg/dL) 114 H 159 H 138 H (75-99) mg/dL C-Reactive Protein (<10.0) mg/L Procalcitonin (0.02-0.09) ng/mL 02/22/20 02/22/20 02/22/20 Range/Units 06:10 06:10 11:43 WBC 13.9 H (3.8-10.6) k/uL RBC 3.15 L (4.30-5.90) m/uL Hgb 10.0 L D (13.0-17.5) gm/dL Hct 30.7 L (39.0-53.0) % MCV (80.0-100.0) fL Neutrophils # (1.3-7.7) k/uL Lymphocytes # (1.0-4.8) k/uL Potassium 3.3 L (3.5-5.1) mmol/L Chloride 113 H (98-107) mmol/L Glucose 138 H (74-99) mg/dL POC Glucose (mg/dL) 166 H (75-99) mg/dL C-Reactive Protein (<10.0) mg/L Procalcitonin (0.02-0.09) ng/mL Microbiology - Last 24 Hours (Table) 02/21/20 20:02 Gram Stain - Preliminary Sputum Sputum Culture - Preliminary Assessment and Plan Plan: -New-onset A. fib: Patient is presently rate controlled and patient came in he was in A. fib with RVR Cardizem will discontinue to increase the dose of metoprolol 200 twice a day. Patient will be started on Eliquis cardiology evaluated the patient echocardiogram was done recently which showed normal ejection fraction without any wall motion abnormalities. Atrial fibrillation is probably precipitated by either sepsis or dehydration. Patient is presently rate controlled -Possibility of sepsis from possible ceremonial tracheobronchitis surrenders his will be obtained infectious disease will be consulted patient was started on Zosyn empirically. No evidence of pneumonia at this time. -Lactic acidosis: Secondary to infection or dehydration laryngeal cancer status post laryngectomy. Patient is supposed to receive chemoradiation therapy, radiation oncology and oncology evaluated the patient -History of DVT not and anti-correlation at home which she was held before this hospitalization as patient had a chest wall hematoma -gastroesophageal reflux disease -Hypertension -Hyperlipidemia -History of PE in the past GI prophylaxis with the Protonix and Pepcid
--- NOTE | 2020-02-22 13:38 | P.CNPUL ---
History of Present Illness Consult date: 02/22/20 Reason for consult: dyspnea, cough Chief complaint: Cough, congestion, tracheobronchitis, A. fib RVR History of present illness: 64-year-old white male patient with a recent diagnosis of the left vocal cord mass, patient underwent tracheostomy and biopsy of the mass, and biopsy was positive for invasive, moderately differentiated squamous cell carcinoma. Patient also had a PEG tube placed for nutritional support. Patient had a prolonged hospitalization back in December during which left vocal cord squamous cell carcinoma was diagnosed. His staging CTs did not reveal metastatic disease, PET scan on 02/05/2020 showed uptake only in the left laryngeal mass with max SUV of 12.5. Patient was discharged to [facility] following his hospitalization, and was discharged home sometime in mid January. He was due to start chemoradiation this coming Tuesday on 02/25/2020. However patient developed progressive cough, purulent sputum production, increasing shortness of breath, and chills, he was taken to the hospital to [facility]. Patient also was found to be in atrial fibrillation with RVR. He had symptoms of increased weakness and fatigue. COVID 19 was ruled out. Chest x-ray showed clearing of the left basilar pneumonia and no new focal consolidation. Labs showed a white blood cell, 12.1, hemoglobin of 15.5, sodium of 141, potassium is 3.7, chloride is 110, CO2 is 23, BUN 16 creatinine 0.79, pro calcitonin was low at 0.10, patient is covered with Zosyn for empiric antibiotic coverage, he was fluid resuscitated, he is awake and alert, dentition is appropriate, he is on trach collar at 6 L/m, and his pulse ox is 94%, afebrile, large amount of thick secretions is being suctioned out of his trach, and preliminary sputum Gram stain showed moderate epithelial cells, few gram-positive cocci, few gram- positive bacilli and rare gram-negative bacilli Review of Systems Constitutional: Reports fatigue, Reports fever, Reports malaise, Reports weakness Respiratory: Reports congestion, Reports cough with sputum, Reports dyspnea, Rep orts home oxygen, Reports respiratory infections Past Medical History Past Medical History: Cancer, COPD, Deep Vein Thrombosis (DVT), GERD/Reflux, Hyperlipidemia, Hypertension, Liver Disease, Pneumonia, Pulmonary Embolus (PE) Additional Past Medical History / Comment(s): Arthritis, vocal cord cancer, recent PEG and trach placement - December [facility]. History of Any Multi-Drug Resistant Organisms: None Reported Past Surgical History: Unable to Obtain Additional Past Surgical History / Comment(s): COLONOSCOPY. BILAT CATARACTS REMOVED Past Anesthesia/Blood Transfusion Reactions: No Reported Reaction Past Psychological History: Anxiety Smoking Status: Former smoker Past Alcohol Use History: Unable to Obtain, Daily Additional Past Alcohol Use History / Comment(s): states pt quit smoking 2 months ago Past Drug Use History: Unable to Obtain, Marijuana - Past Family History Mother Family Medical History: Hypertension Father History Unknown: Yes Family Medical History: Hypertension Medications and Allergies Home Medications Medication Instructions Recorded Confirmed Type Atorvastatin [Lipitor] 20 mg PEG/G-TUBE DAILY 07/05/18 02/21/20 History Chlorhexidine Gluconate [Peridex] 15 ml MUCOUS MEM BID #0 solution 01/04/20 02/21/20 Rx Arformoterol Tartrate [Brovana] 15 mcg INHALATION RT-TID 02/21/20 02/21/20 History Aspirin EC [Ecotrin Low Dose] 81 mg PEG/G-TUBE DAILY 02/21/20 02/21/20 History Famotidine 20 mg PEG/G-TUBE DAILY 02/21/20 02/21/20 History Folic Acid 1 mg PEG/G-TUBE DAILY 02/21/20 02/21/20 History Metoprolol Tartrate [Lopressor] 75 mg PEG/G-TUBE BID 02/21/20 02/21/20 History QUEtiapine FUMARATE [SEROquel] 25 mg PEG/G-TUBE HS 02/21/20 02/21/20 History QUEtiapine [SEROquel] 50 mg PEG/G-TUBE HS 02/21/20 02/21/20 History Thiamine [Vitamin B-1] 100 mg PEG/G-TUBE DAILY 02/21/20 02/21/20 History amLODIPine [Norvasc] 5 mg PEG/G-TUBE BID 02/21/20 02/21/20 History cloNIDine HCL [Catapres] 0.2 mg PEG/G-TUBE BID 02/21/20 02/21/20 History Allergies Allergy/AdvReac Type Severity Reaction Status Date / Time lisinopril Allergy Swelling Verified 02/21/20 10:22 acetaminophen [From Tylenol] AdvReac LIVER Verified 02/21/20 10:22 PROBLEMS PER NSAIDS (Non-Steroidal AdvReac LIVER Verified 02/21/20 10:22 Anti-Inflamma PROBLEMS PER Physical Exam Vitals: Vital Signs Temp Pulse Pulse Resp BP Pulse Ox 02/22/20 08:29 90 02/22/20 08:18 88 02/22/20 08:09 88 02/22/20 04:00 99.5 F 95 18 142/66 94 L 02/22/20 03:18 86 18 02/21/20 23:30 86 18 02/21/20 23:27 97.7 F 86 18 138/63 95 02/21/20 20:01 90 20 02/21/20 20:00 98.2 F 89 20 121/59 97 02/21/20 19:52 90 20 02/21/20 19:43 89 20 02/21/20 16:08 72 18 02/21/20 16:00 99.1 F 75 18 126/76 99 02/21/20 15:57 68 18 Intake and Output 02/21/20 02/22/20 02/22/20 22:59 06:59 14:59 Output Total 475 475 Balance -475 -475 Output: Urine 475 475 Other: Voiding Method Urinal Urinal # Voids 1 Weight 65.4 kg GENERAL EXAM: Alert, pleasant, 64-year-old white male, on trach collar, currently 6 L/m, comfortable in no apparent distress. HEAD: Normocephalic/atraumatic. EYES: Normal reaction of pupils, equal size. Conjunctiva pink, sclera white. NOSE: Clear with pink turbinates. THROAT: No erythema or exudates. NECK: No masses, no JVD, no thyroid enlargement, no adenopathy. Midline tracheostomy CHEST: No chest wall deformity. Symmetrical expansion. LUNGS: Equal air entry with some scattered rhonchi, but no wheeze, dullness. CVS: Regular rate and rhythm, normal S1 and S2, no gallops, no murmurs, no rubs ABDOMEN: Soft, nontender. No hepatosplenomegaly, normal bowel sounds, no guarding or rigidity. PEG tube present, with tube feedings infusing EXTREMITIES: No clubbing, no edema, no cyanosis, 2+ pulses and upper and lower extremities. MUSCULOSKELETAL: Muscle strength and tone normal. SPINE: No scoliosis or deformity SKIN: No rashes CENTRAL NERVOUS SYSTEM: Alert and oriented -3. No focal deficits, tone is normal in all 4 extremities. PSYCHIATRIC: Alert and oriented -3. Appropriate affect. Intact judgment and insight. Results - Laboratory Findings CBC and BMP: 02/22/20 06:10 02/22/20 06:10 Abnormal lab findings: Abnormal Labs 02/21/20 02/21/20 02/21/20 10:27 10:27 10:27 WBC 12.1 H RBC Hgb Hct MCV 100.3 H Neutrophils # 9.8 H Lymphocytes # 0.9 L Potassium Chloride 110 H Glucose 113 H POC Glucose (mg/dL) C-Reactive Protein 85.0 H Procalcitonin 02/21/20 02/21/20 02/21/20 10:27 16:36 20:38 WBC RBC Hgb Hct MCV Neutrophils # Lymphocytes # Potassium Chloride Glucose POC Glucose (mg/dL) 114 H 159 H C-Reactive Protein Procalcitonin 0.10 H 02/22/20 02/22/20 02/22/20 06:06 06:10 06:10 WBC 13.9 H RBC 3.15 L Hgb 10.0 L D Hct 30.7 L MCV Neutrophils # Lymphocytes # Potassium 3.3 L Chloride 113 H Glucose 138 H POC Glucose (mg/dL) 138 H C-Reactive Protein Procalcitonin 02/22/20 11:43 WBC RBC Hgb Hct MCV Neutrophils # Lymphocytes # Potassium Chloride Glucose POC Glucose (mg/dL) 166 H C-Reactive Protein Procalcitonin - Diagnostic Findings Chest x-ray: report reviewed, image reviewed Assessment and Plan Plan: #1. Acute hypoxic respiratory failure related to acute tracheobronchitis, no clear evidence of pneumonia on the chest x-ray #2. Weakness, dehydration, increased phlegm production, cough, related to the above #3. New onset atrial fibrillation with rapid ventricular response on presentation, currently better controlled, possibly related to dehydration and sepsis #4. 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 Patient is due to start treatment on Tuesday on 02/25/2020 with hemotherapy and radiation #5. Previous history of EtOH abuse #6. History of right lower extremity DVT in 2018, patient is not a candidate for chronic anticoagulation, he is status post IVC filter placement #7. Underlying COPD #8. Ex-smoker Plan: Continue Zosyn for empiric antibiotic coverage, will follow sputum cultures, chest x-ray did not show any clear evidence of pneumonia, we'll treat the patient for possibly tracheobronchitis. No altered mentation, no fever. COVID 19 PCR was negative. Tolerating tube feedings, medical oncology is following I performed a history & physical examination of the patient and discussed their management with my nurse practitioner, Marifer Hernández. I reviewed the nurse practitioner's note and agree with the documented findings and plan of care. Lung sounds are positive for diminished breath sounds, scattered rhonchi throughout the lung m[place]. The findings and the impression was discussed with the patient. I attest to the documentation by the nurse practitioner. Time with Patient: Greater than 30
--- NOTE | 2020-02-22 14:53 | P.PN ---
Subjective Progress Note Date: 02/22/20 The patient continues to have cough with expectoration and upper airway congestion. However he feels this is somewhat less than before. He also feels mildly stronger. No fever/chills/nausea/vomiting the patient does have a skin compromise and decubiti on both feet, right more than left Objective - Vital Signs Vital signs: Vital Signs Temp 99.5 F 02/22/20 04:00 Pulse 90 02/22/20 08:29 Resp 18 02/22/20 04:00 BP 142/66 02/22/20 04:00 Pulse Ox 94 L 02/22/20 04:00 Intake & Output 02/21/20 02/22/20 02/22/20 18:59 06:59 18:59 Output Total 475 475 475 Balance -475 -475 -475 Weight 65.4 kg 65.4 kg Output: Urine 475 475 475 Other: Voiding Method Urinal Urinal # Voids 2 1 - Constitutional General appearance: Present: no acute distress - EENT Eyes: Present: EOMI ENT: Present: hearing grossly normal, normal oropharynx - Neck Details: A tracheostomy in situ. - Respiratory Details: Increased upper airway congestion Respiratory: bilateral: CTA - Cardiovascular Rhythm: regular Heart sounds: normal: S1, S2 - Gastrointestinal General gastrointestinal: Present: normal bowel sounds, soft - Integumentary Integumentary Comment(s): The thinning of skin, with decubiti on both feet, right greater than left - Neurologic Neurologic: Present: CNII-XII intact - Musculoskeletal Musculoskeletal: Present: generalized weakness, strength equal bilaterally - Psychiatric Psychiatric: Present: A&O x's 3, appropriate affect - Labs CBC & Chem 7: 02/22/20 06:10 02/22/20 06:10 Labs: Abnormal Lab Results - Last 24 Hours (Table) 02/21/20 02/21/20 02/21/20 Range/Units 10:27 10:27 10:27 WBC 12.1 H (3.8-10.6) k/uL RBC (4.30-5.90) m/uL Hgb (13.0-17.5) gm/dL Hct (39.0-53.0) % MCV 100.3 H (80.0-100.0) fL Neutrophils # 9.8 H (1.3-7.7) k/uL Lymphocytes # 0.9 L (1.0-4.8) k/uL Potassium (3.5-5.1) mmol/L Chloride (98-107) mmol/L Glucose (74-99) mg/dL POC Glucose (mg/dL) (75-99) mg/dL C-Reactive Protein 85.0 H (<10.0) mg/L Procalcitonin 0.10 H (0.02-0.09) ng/mL 02/21/20 02/21/20 02/22/20 Range/Units 16:36 20:38 06:06 WBC (3.8-10.6) k/uL RBC (4.30-5.90) m/uL Hgb (13.0-17.5) gm/dL Hct (39.0-53.0) % MCV (80.0-100.0) fL Neutrophils # (1.3-7.7) k/uL Lymphocytes # (1.0-4.8) k/uL Potassium (3.5-5.1) mmol/L Chloride (98-107) mmol/L Glucose (74-99) mg/dL POC Glucose (mg/dL) 114 H 159 H 138 H (75-99) mg/dL C-Reactive Protein (<10.0) mg/L Procalcitonin (0.02-0.09) ng/mL 02/22/20 02/22/20 02/22/20 Range/Units 06:10 06:10 11:43 WBC 13.9 H (3.8-10.6) k/uL RBC 3.15 L (4.30-5.90) m/uL Hgb 10.0 L D (13.0-17.5) gm/dL Hct 30.7 L (39.0-53.0) % MCV (80.0-100.0) fL Neutrophils # (1.3-7.7) k/uL Lymphocytes # (1.0-4.8) k/uL Potassium 3.3 L (3.5-5.1) mmol/L Chloride 113 H (98-107) mmol/L Glucose 138 H (74-99) mg/dL POC Glucose (mg/dL) 166 H (75-99) mg/dL C-Reactive Protein (<10.0) mg/L Procalcitonin (0.02-0.09) ng/mL Microbiology - Last 24 Hours (Table) 02/21/20 20:02 Gram Stain - Preliminary Sputum Sputum Culture - Preliminary Assessment and Plan (1) Tracheobronchitis Narrative/Plan: The patient had presented with shortness of breath, and increased cough with expectoration. Chest x-ray did not show any obvious pneumonia. Therefore it is felt that the patient likely has a tracheal bronchitis. Defer to the admitting service and ID for ongoing treatment. The patient does feel somewhat better today. Current Visit: Yes Status: Acute Priority: High Code(s): J40 - BRONCHITIS, NOT SPECIFIED ACUTE OR CHRONIC SNOMED Code(s): 93946450 (2) Squamous cell carcinoma of left vocal cord Narrative/Plan: The patient was to start concurrent chemoradiation with curative intent on 02/14 11/05. Assuming satisfactory resolution of his acute condition, the plan would be to start treatment next week as an outpatient Current Visit: Yes Status: Acute Priority: High Code(s): C32.0 - MALIGNANT NEOPLASM OF GLOTTIS SNOMED Code(s): 147778465 (3) Anemia Narrative/Plan: Patient's hemoglobin on admission was 15 and has dropped to 10. Actually hemoglobin during his prior admission was much lower. The 15.5 is likely artificially high due to hemoconcentration. At this time we will plan on continued monitoring. There is no obvious clinical bleeding. Current Visit: Yes Status: Acute Code(s): D64.9 - ANEMIA, UNSPECIFIED SNOMED Code(s): 487646903
[2020-02-22 16:46] LABS: Glucose,Whole Blood 148 mg/dL (75-99)
--- NOTE | 2020-02-22 17:13 | PN ---
PROGRESS NOTE DATE OF SERVICE: 02/22/2020 REASON FOR FOLLOWUP: 1. Pneumonia. 2. Right heel wound. INTERVAL HISTORY: The patient is currently afebrile. The patient seemed to be more awake, alert, up in the chair, breathing slightly comfortably. He did have some cough, no worsening reported. No vomiting or diarrhea reported. PHYSICAL EXAMINATION: Blood pressure 150/66, pulse of 80, temperature is 99.5. He is 94% on 6 L trach collar. General description is an elderly male, up in the bed in no distress. RESPIRATORY SYSTEM: Unlabored breathing, some coarse breath sounds bilaterally, no wheeze. HEART: S1, S2. Regular rate and rhythm. ABDOMEN: Soft. Right heel is currently dressed up. LABS: Hemoglobin is 10, white count 13.9, BUN of 17, creatinine 0.7. Sputum culture is currently pending. DIAGNOSTIC IMPRESSION AND PLAN: 1. Patient admitted to the hospital with increasing shortness of breath and cough with concern for possible pneumonia. The patient did have purulent secretion and those seemed to be slightly thinning out today per the RN. Continue Zosyn while waiting for the culture to finalize. 2. Right heel wound. Local care with Pat. Monitor clinical course closely. MMODL / IJN: [id number] /
[2020-02-22 20:51] LABS: Glucose,Whole Blood 155 mg/dL (75-99)
[2020-02-23] MEDS: PIPERACILLIN-TAZOBACTAM 3.375 GM in SODIUM CHLORIDE 0.9% 100 ML IVPB SCH ×4 (00:28→23:42)
[2020-02-23] MEDS: SODIUM CHLORIDE 0.9% 1,000 ML IV SCH ×3 (05:32→14:57)
[2020-02-23 05:57] LABS: HCT 31.5 % (39.0-53.0); HGB 10.2 gm/dL (13.0-17.5); Hypochromasia Slight; MCH 31.1 pg (25.0-35.0); MCHC 32.3 g/dL (31.0-37.0); MCV 96.3 fL (80.0-100.0); Mean Platelet Volume 9.3; Platelet Count 291 k/uL (150-450); RBC 3.28 m/uL (4.30-5.90); RDW 13.5 % (11.5-15.5); WBC 13.1 k/uL (3.8-10.6)
[2020-02-23 06:07] LABS: African American GFR (CKD) >90 (>60 ml/min/1.73 sqM); Anion Gap 8 mmol/L; Blood Urea Nitrogen 13 mg/dL (9-20); Calcium 8.1 mg/dL (8.4-10.2); Carbon Dioxide 22 mmol/L (22-30); Chloride 111 mmol/L (98-107); Glucose 121 mg/dL (74-99); Non-African American GFR(CKD) >90 (>60 ml/min/1.73 sqM); Potassium 3.2 mmol/L (3.5-5.1); Sodium 141 mmol/L (137-145)
[2020-02-23 06:25] LABS: Glucose,Whole Blood 148 mg/dL (75-99)
[2020-02-23] MEDS: FORMOTEROL FUMARATE 20 MCG/2 ML NEBU INHALATION SCH ×2 (08:43→20:18)
[2020-02-23] MEDS: IPRATROPIUM-ALBUTEROL 3 ML NEB INHALATION SCH ×4 (08:43→20:18)
[2020-02-23] MEDS ORDERED: DILTIAZEM ORAL 60 MG TAB PO SCH (09:00)
[2020-02-23] MEDS ORDERED: DILTIAZEM DRIP BOLUS FROM BAG 1 MG SOLN IV ONE (09:03)
[2020-02-23] MEDS: METOPROLOL TARTRATE 50 MG TAB PO SCH ×2 (09:11→21:08)
[2020-02-23] MEDS: ATORVASTATIN 20 MG TAB PO SCH (09:11)
[2020-02-23] MEDS: FAMOTIDINE 20 MG TAB PO SCH (09:11)
[2020-02-23] MEDS: APIXABAN 5 MG TAB PO SCH ×2 (09:11→21:07)
[2020-02-23] MEDS: QUEtiapine 50 MG TAB PO SCH ×2 (09:11→21:08)
[2020-02-23] MEDS: NICOTINE 14MG/24HR PATCH TRANSDERM SCH (09:12)
[2020-02-23] MEDS ORDERED: DILTIAZEM 125 MG in SODIUM CHLORIDE 0.9% 100 ML IV SCH (09:15)
--- NOTE | 2020-02-23 09:40 | P.PN ---
Subjective This is a pleasant 64-year-old male past medical history significant for squamous cell carcinoma of the left vocal cord status post mass removal, paroxysmal atrial fibrillation, hypertension, peripheral vascular disease, history of DVT 2017, PE December 2019, gastroesophageal reflux disease, IVC filter placement and chronic nicotine dependence. He denies prior history of coronary artery disease. He sees Dr. Love in the office. He came to the hospital with symptoms of cough, congestion, shortness of breath and fever/chills. He was also noted to be in a-fib. He is seen and examined sitting up in the chair with trach mask in place. He states his breathing is not improving at all, he continues to have an elevated temperature. He denies chest pain, dizziness or palpitations. Telemetry indicates this morning he was in sinus mechanism with frequent PVC's, however now has converted to a-fib with RVR. Laboratory data reviewed, WBC 13.1, hemoglobin 10.2, sodium 141, potassium 3.2, creatinine 0.79. Currently maintained on metoprolol 100 mg twice a day, atorvastatin 20 mg daily, aspirin 81 mg daily and Eliquis 5 mg twice a day. GENERAL: In no acute distress. NECK: Supple without JVD or thyromegaly. Trach in place with mask for oxy genation. LUNGS: Scattered rhonchi, faint expiratory wheezes. No rales. Respiration equal and unlabored. HEART: Irregular rate and rhythm with systolic ejection murmur at the left sternal border, no rubs or gallops. S1 and S2 heard. EXTREMITIES: Normal range of motion, trace edema right lower extremity, no edema on the left. No clubbing or cyanosis. Peripheral pulses intact. ASSESSMENT Acute tracheobronchitis Paroxysmal atrial fibrillation. Currently maintaining sinus mechanism with frequent PVCs. Hypokalemia Squamous cell carcinoma left vocal cord Hypertension History of DVT and PE in the past Anemia Chronic nicotine dependence PLAN Continue lopressor at 100 PO BID. Initiate cardizem 60 mg TID for rate control. Check lower extremity doppler on the right. We will continue to follow and make recommendations accordingly. Nurse Practitioner note has been reviewed, I agree with a documented findings and plan of care. Patient was seen and examined. Objective - Vital Signs Vital signs: Vital Signs Temp 100.6 F H 02/23/20 04:00 Pulse 73 02/23/20 04:00 Resp 19 02/23/20 04:00 BP 127/71 02/23/20 04:00 Pulse Ox 96 02/23/20 04:00 Intake & Output 02/22/20 02/23/20 02/23/20 18:59 06:59 18:59 Intake Total 0 Output Total 825 801 Balance -825 -801 0 Weight 65.4 kg 66 kg Intake: Oral 0 Output: Urine 825 800 Stool 1 Other: Voiding Method Urinal Urinal # Bowel Movements 1 - Labs CBC & Chem 7: 02/23/20 05:45 02/23/20 05:45 Labs: Abnormal Lab Results - Last 24 Hours (Table) 02/22/20 02/22/20 02/22/20 Range/Units 11:43 16:45 20:50 WBC (3.8-10.6) k/uL RBC (4.30-5.90) m/uL Hgb (13.0-17.5) gm/dL Hct (39.0-53.0) % Potassium (3.5-5.1) mmol/L Chloride (98-107) mmol/L Glucose (74-99) mg/dL POC Glucose (mg/dL) 166 H 148 H 155 H (75-99) mg/dL Calcium (8.4-10.2) mg/dL 02/23/20 02/23/20 02/23/20 Range/Units 05:45 05:45 06:23 WBC 13.1 H (3.8-10.6) k/uL RBC 3.28 L (4.30-5.90) m/uL Hgb 10.2 L (13.0-17.5) gm/dL Hct 31.5 L (39.0-53.0) % Potassium 3.2 L (3.5-5.1) mmol/L Chloride 111 H (98-107) mmol/L Glucose 121 H (74-99) mg/dL POC Glucose (mg/dL) 148 H (75-99) mg/dL Calcium 8.1 L (8.4-10.2) mg/dL
[2020-02-23] MEDS ORDERED: Potassium Replacement Protocol 1 EACH MISC MISCELLANE PRN (10:09)
--- NOTE | 2020-02-23 10:55 | US ---
EXAMINATION TYPE: US venous doppler duplex LE LT DATE OF EXAM: 02/23/2020 9:39 AM COMPARISON: NONE CLINICAL HISTORY: swelling, hx dvt right leg. Patient scanned sitting in chair SIDE PERFORMED: Left TECHNIQUE: The lower extremity deep venous system is examined utilizing real time linear array sonog eri with graded compression, doppler sonography and color-flow sonography. VESSELS IMAGED: External Iliac Vein (EIV) Common Femoral Vein Deep Femoral Vein Greater Saphenous Vein * Femoral Vein Popliteal Vein Small Saphenous Vein * Proximal Calf Veins (* superficial vessels) Left Leg: Negative for DVT No popliteal fossa lesion is seen. IMPRESSION: THIS EXAMINATION IS NEGATIVE FOR DVT WITHIN THE LEFT LEG.
[2020-02-23] MEDS: THIAMINE 100 MG TAB PO SCH (11:03)
[2020-02-23] MEDS: POTASSIUM BICARBONATE/CIT AC 20 MEQ TABLET.EFF NG-TUBE SCH ×2 (11:03→12:40)
[2020-02-23 12:05] LABS: Glucose,Whole Blood 147 mg/dL (75-99)
--- NOTE | 2020-02-23 12:35 | P.PN ---
Subjective Progress Note Date: 02/23/20 Principal diagnosis: Acute hypoxic respiratory failure secondary to acute tracheobronchitis. 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 Patient also had a PEG tube placed for nutritional support. Patient had a prolonged hospitalization back in December during which left vocal cord squamous cell carcinoma was diagnosed. His staging CTs did not reveal metastatic disease, PET scan on 02/05/2020 showed uptake only in the left laryngeal mass with max SUV of 12.5. Patient was discharged to [facility] following his hospitalization, and was discharged home sometime in mid January. He was due to start chemoradiation this coming Tuesday on 02/25/2020. However patient de veloped progressive cough, purulent sputum production, increasing shortness of breath, and chills, he was taken to the hospital to [facility]. Patient also was found to be in atrial fibrillation with RVR. He had symptoms of increased weakness and fatigue. COVID 19 was ruled out. Chest x-ray showed clearing of the left basilar pneumonia and no new focal consolidation. Labs showed a white blood cell, 12.1, hemoglobin of 15.5, sodium of 141, potassium is 3.7, chloride is 110, CO2 is 23, BUN 16 creatinine 0.79, pro calcitonin was low at 0.10, patient is covered with Zosyn for empiric antibiotic coverage, he was fluid resuscitated, he is awake and alert, dentition is appropriate, he is on trach collar at 6 L/m, and his pulse ox is 94%, afebrile, large amount of thick secretions is being suctioned out of his trach, and preliminary sputum Gram stain showed moderate epithelial cells, few gram-positive cocci, few gram- positive bacilli and rare gram-negative bacilli The patient is seen today 02/23/2020 in follow-up on the selective care unit. He is currently sitting up in a chair at the bedside. Awake and alert in no acute distress. He is maintaining good O2 saturations in the 90s on 35% trach collar. He's been afebrile. Hemodynamically stable. Sputum culture is positive for presumptive staph aureus/gram-negative bacilli. White count 13.1. Hemoglobin 10.2. Sodium 141. Potassium 3.2. Creatinine 0.79. He is currently on Zosyn. Objective - Vital Signs Vital signs: Vital Signs Temp 99.5 F 02/23/20 08:00 Pulse 88 02/23/20 12:16 Resp 20 02/23/20 08:00 BP 123/69 02/23/20 08:00 Pulse Ox 97 02/23/20 08:00 Intake & Output 02/22/20 02/23/20 02/23/20 18:59 06:59 18:59 Intake Total 0 Output Total 825 801 800 Balance -825 -801 -800 Weight 65.4 kg 66 kg Intake: Oral 0 Output: Urine 825 800 800 Stool 1 Other: Voiding Method Urinal Urinal Urinal # Bowel Movements 1 - Exam GENERAL EXAM: Alert, pleasant, 64-year-old white male, on trach collar, 35% FiO2, comfortable in no apparent distress. HEAD: Normocephalic/atraumatic. EYES: Normal reaction of pupils, equal size. Conjunctiva pink, sclera white. NOSE: Clear with pink turbinates. THROAT: No erythema or exudates. NECK: No masses, no JVD, no thyroid enlargement, no adenopathy. Midline tracheostomy CHEST: No chest wall deformity. Symmetrical expansion. LUNGS: Equal air entry with some scattered rhonchi, but no wheeze, dullness. CVS: Regular rate and rhythm, normal S1 and S2, no gallops, no murmurs, no rubs ABDOMEN: Soft, nontender. No hepatosplenomegaly, normal bowel sounds, no guarding or rigidity. PEG tube present, with tube feedings infusing EXTREMITIES: No clubbing, no edema, no cyanosis, 2+ pulses and upper and lower extremities. MUSCULOSKELETAL: Muscle strength and tone normal. SPINE: No scoliosis or deformity SKIN: No rashes CENTRAL NERVOUS SYSTEM: No focal deficits, tone is normal in all 4 extremities. PSYCHIATRIC: Alert and oriented -3. Appropriate affect. Intact judgment and insight. - Labs CBC & Chem 7: 02/23/20 05:45 02/23/20 05:45 Labs: Abnormal Lab Results - Last 24 Hours (Table) 02/22/20 02/22/20 02/23/20 Range/Units 16:45 20:50 05:45 WBC 13.1 H (3.8-10.6) k/uL RBC 3.28 L (4.30-5.90) m/uL Hgb 10.2 L (13.0-17.5) gm/dL Hct 31.5 L (39.0-53.0) % Potassium (3.5-5.1) mmol/L Chloride (98-107) mmol/L Glucose (74-99) mg/dL POC Glucose (mg/dL) 148 H 155 H (75-99) mg/dL Calcium (8.4-10.2) mg/dL Albumin (3.5-5.0) g/dL 02/23/20 02/23/20 02/23/20 Range/Units 05:45 05:45 06:23 WBC (3.8-10.6) k/uL RBC (4.30-5.90) m/uL Hgb (13.0-17.5) gm/dL Hct (39.0-53.0) % Potassium 3.2 L (3.5-5.1) mmol/L Chloride 111 H (98-107) mmol/L Glucose 121 H (74-99) mg/dL POC Glucose (mg/dL) 148 H (75-99) mg/dL Calcium 8.1 L (8.4-10.2) mg/dL Albumin 2.4 L (3.5-5.0) g/dL 02/23/20 Range/Units 12:03 WBC (3.8-10.6) k/uL RBC (4.30-5.90) m/uL Hgb (13.0-17.5) gm/dL Hct (39.0-53.0) % Potassium (3.5-5.1) mmol/L Chloride (98-107) mmol/L Glucose (74-99) mg/dL POC Glucose (mg/dL) 147 H (75-99) mg/dL Calcium (8.4-10.2) mg/dL Albumin (3.5-5.0) g/dL Microbiology - Last 24 Hours (Table) 02/21/20 20:02 Gram Stain - Preliminary Sputum Sputum Culture - Preliminary Presumptive Staph aureus Gram Neg Bacilli Assessment and Plan Assessment: #1. Acute hypoxic respiratory failure related to acute tracheobronchitis, no clear evidence of pneumonia on the chest x-ray #2. Weakness, dehydration, increased phlegm production, cough, related to the above #3. New onset atrial fibrillation with rapid ventricular response on presentation, currently better controlled, possibly related to dehydration and sepsis #4. 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 Patient is due to start treatment on Tuesday on 02/25/2020 with hemotherapy and radiation #5. Previous history of EtOH abuse #6. History of right lower extremity DVT in 2018, patient is not a candidate for chronic anticoagulation, he is status post IVC filter placement #7. Underlying COPD #8. Ex-smoker Plan: The patient was seen and evaluated by Dr. Olivera Sputum positive for presumptive staph aureus/gram-negative bacilli Adjust the antibiotics accordingly We'll continue to follow I, the cosigning physician, performed a history & physical examination of the patient. Lungs sounds with bilateral scattered rhonchi. Maintaining good O2 saturations in the 90s on 35% FiO2 via trach collar. I discussed the assessment and plan of care with my nurse practitioner, Sharifa Bennett. I attest to the above note as dictated by her.
--- NOTE | 2020-02-23 12:57 | P.PN ---
Subjective Progress Note Date: 02/23/20 Principal diagnosis: Sepsis, atrial fibrillation Mr. Laurent is a 64-year-old male with a past medical history of laryngeal cancer, PE and DVT, status post trach and PEG, hypertension, hyperlipidemia, GERD who was transferred from [facility] for upper airway congestion cough and difficulty in breathing. As the patient was having increased secretions from his trach tube he is currently being treated for acute tracheobronchitis with Zosyn. ID Dr. Rasmussen on board and following the patient. Patient also has new onset atrial fibrillation for which cardiology is following him closely. Patient COVID 19 negative. Chest x-ray was showing clearing of left basilar pneumonia and no new focal consolidations. On 02/23/2020- A the patient is sitting up in a chair by the bedside does not appear to be in distress. Patient states that he is still having secretions from his endotracheal tube. He denies having any complaints overnight. On reviewing the patient's vitals patient had spiked a fever of 100.6 orally this morning. He has been in sinus rhythm with a few PVCs. Saturating at 97% on 8 L with the trach collar. Blood pressure 1 23 x 69. On reviewing his labs his white count is 13.1, hemoglobin 10.2. Potassium of 3.2 and albumin of 2.4. Patient's sputum cultures have been positive for gram-negative bacilli. As per discussion with nursing staff patient was slightly depressed last night. On talking to him this morning he said he has been feeling very low. Had thoughts about hurting himself but currently no suicidal or homicidal ideation. He thinks he feels like this because of his health issues which are deteriorating. He is okay with having psychiatric consultation in this regards. Objective - Vital Signs Vital signs: Vital Signs Temp 99.5 F 02/23/20 08:00 Pulse 88 02/23/20 12:16 Resp 20 02/23/20 08:00 BP 123/69 02/23/20 08:00 Pulse Ox 97 02/23/20 08:00 Intake & Output 02/22/20 02/23/20 02/23/20 18:59 06:59 18:59 Intake Total 0 Output Total 825 801 800 Balance -825 -801 -800 Weight 65.4 kg 66 kg Intake: Oral 0 Output: Urine 825 800 800 Stool 1 Other: Voiding Method Urinal Urinal Urinal # Bowel Movements 1 - Exam PHYSICAL EXAMINATION: GENERAL: The patient is alert and oriented x3, thin built appears , no acute distress HEENT: Pupils are round and equally reacting to light. EOMI. No scleral icterus. Mild pallor. Normocephalic, atraumatic. Increased secretions from the trach with excoriation of the skin around the trach. CARDIOVASCULAR: S1 and S2 present. No murmurs, rubs, or gallops. PULMONARY: Tracheostomy in place bilateral rhonchi good air entry into bilateral lung mcgovern. No wheezing was appreciated patient ABDOMEN: Soft, nontender, nondistended, normoactive bowel sounds. PEG tube in place. MUSCULOSKELETAL: No joint swelling or deformity. EXTREMITIES: Mild edema. NEUROLOGICAL: Gross neurological examination did not reveal any focal deficits. - Labs CBC & Chem 7: 02/23/20 05:45 02/23/20 05:45 Labs: Abnormal Lab Results - Last 24 Hours (Table) 02/22/20 02/22/20 02/23/20 Range/Units 16:45 20:50 05:45 WBC 13.1 H (3.8-10.6) k/uL RBC 3.28 L (4.30-5.90) m/uL Hgb 10.2 L (13.0-17.5) gm/dL Hct 31.5 L (39.0-53.0) % Potassium (3.5-5.1) mmol/L Chloride (98-107) mmol/L Glucose (74-99) mg/dL POC Glucose (mg/dL) 148 H 155 H (75-99) mg/dL Calcium (8.4-10.2) mg/dL Albumin (3.5-5.0) g/dL 02/23/20 02/23/20 02/23/20 Range/Units 05:45 05:45 06:23 WBC (3.8-10.6) k/uL RBC (4.30-5.90) m/uL Hgb (13.0-17.5) gm/dL Hct (39.0-53.0) % Potassium 3.2 L (3.5-5.1) mmol/L Chloride 111 H (98-107) mmol/L Glucose 121 H (74-99) mg/dL POC Glucose (mg/dL) 148 H (75-99) mg/dL Calcium 8.1 L (8.4-10.2) mg/dL Albumin 2.4 L (3.5-5.0) g/dL 02/23/20 Range/Units 12:03 WBC (3.8-10.6) k/uL RBC (4.30-5.90) m/uL Hgb (13.0-17.5) gm/dL Hct (39.0-53.0) % Potassium (3.5-5.1) mmol/L Chloride (98-107) mmol/L Glucose (74-99) mg/dL POC Glucose (mg/dL) 147 H (75-99) mg/dL Calcium (8.4-10.2) mg/dL Albumin (3.5-5.0) g/dL Microbiology - Last 24 Hours (Table) 02/21/20 20:02 Gram Stain - Preliminary Sputum Sputum Culture - Preliminary Presumptive Staph aureus Gram Neg Bacilli Assessment and Plan Assessment: ASSESSMENT Acute hypoxic respiratory failure due to acute tracheobronchitis New onset atrial fibrillation with rapid ventricular rate Squamous cell carcinoma of the left vocal cord status post trach and PEG tube placement History of alcohol abuse History of DVT in 2018, he has IVC filter placed COPD Former smoker Hypertension Hyperlipidemia History of PE in the past Severe protein calorie malnutrition PLAN: Patient has been started on Zosyn for tracheobronchitis along with breathing treatments. Sputum cultures positive for gram-negative bacilli. ID Dr. Rasmussen on board and adjusting the antibiotics. Patient converted into sinus rhythm. Cardiology adjusting his medications for rate control. He is currently on Lopressor 100 mg twice a day and Cardizem 60 mg 3 times a day. Continue on Eliquis for anticoagulation. As the patient has been feeling depressed discussed with him about considering psych consult. Patient is okay obtaining psych consult but he said he wouldn't want them to speak with his as well as she knows him well. No active suicidal or homicidal ideation. Continue with the rest of his current medication regimen. Overall prognosis is guarded. Further recommendations to follow depending on the progress of the patient.
--- NOTE | 2020-02-23 13:39 | P.CN ---
Psychiatric Consult - . Consult date: 02/23/20 Consult:: 02/23/20 13:32 IDENTIFYING DATA: This patient is a 64-year-old male who currently lives with his and has 3 daughters. HISTORY OF PRESENT ILLNESS: The patient presented to the hospital after recently being diagnosed with left vocal cord mass and current tracheostomy and PEG tube. Patient was last admitted to medicine in mid January and was due to start chemotherapy/radiation therapy this Tuesday however patient complained of a cough shortness of breath and weakness. Psychiatry is consulted for "depression and past suicidal ideations". Patient was seen at the bedside watching TV and was calm and appropriate during conversation. Patient did not speak much due to his tracheostomy however attempts to participate as best as he could. Patient did state that his mood is "up and down" and denies any other depressive symptoms like poor concentration and anhedonia or anxiety at this time. He states that his sleep is also "on and off". He spoke about trying to adjust to his medications and his medical condition and states that "I think I'm handling it okay". He denies any access to guns at the home or any weapons. He admits to fair appetite. At this time patient denies any suicidal or homical ideations, intent or plan. Patient denies any auditory, visual hallucinations and denies any paranoia or delusions. Patients admits to using marijuana daily he says he quit cigarettes after smoking 50 pack years. He had a alcohol abuse history. PAST PSYCHIATRIC HISTORY: Patient has a a history of depression. Patient is currently on 50 mg of Seroquel twice a day Patient denies any previous psychiatric hospitalizations. Patient denies any psychiatric outpatient follow- up. He denies any suicide attempts in the past. PAST MEDICAL HISTORY: Vocal cord cancer, COPD, A. fib, hypertension. ALLERGIES: as per EMR. CHEMICAL DEPENDENCY HISTORY: as per HPI. FAMILY PSYCHIATRIC/SUBSTANCE USE HISTORY: denies SOCIAL HISTORY: Patient was born and raised in [place] and states that he completed up to 12th grade in school. 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 He currently lives with his in a house and states that he has 3 daughters. MENTAL STATUS EXAM: General Appearance: Patient appears to be thin/frail stated age is alert, pleasant, and attempts to be cooperative. Patient appears to have fair hygiene and grooming wearing hospital gown with poor eye contact. Behavior: Patient is calmly lying in bed without any agitated behavior. Speech: Patient's speech is fluent and nonpressured. Soft-spoken. Mood/Affect: Patient reports their mood is "up and down", affect is congruent Suicidality/Homicidality: Patient denies having any suicidal or homicidal ideation intent or plan. Perceptions: Patient denies any visual hallucinations and denies any auditory hallucinations Though content/process: Thought process is linear and goal-directed. Porter. Memory and concentration: AOX3, grossly intact for the purposes of this session. Can spell "WORLD" backwards Judgment and insight: Limited IMPRESSIONS: Depressive disorder unspecified, rule out adjustment disorder with depressed mood versus major depressive disorder PLAN: -At this time patient DOES NOT meet criteria for inpatient psychiatric admission. -Delirium precautions recommended with patient including - avoiding use of narcotics and MICRO[employer]Y QUALITY [employer]OL TECHNICIAN sedatives, limit anticholinergic medications when possible, frequent re-orientation, minimize use of restraints, open window shades during the day and close them at night -Would recommend the following medication changes/additions: Manager Story discussed options of SSRIs for treatment of anxiety/depression however at this time patient states he wants to think about it and discuss it with his . If patient does agree to be started on this medication he can be started on Zoloft 25 mg daily for 5 days and then increase to 50 mg thereafter. Can continue with home dose of Seroquel 50 mg twice a day. Added melatonin 3 mg daily at bedtime for sleep. -Psychiatry will sign off at this point, please contact with any questions.
[2020-02-23] MEDS: LINEZOLID 600 MG TAB PO SCH ×2 (14:07→21:08)
[2020-02-23] MEDS: DILTIAZEM ORAL 60 MG TAB PO SCH ×2 (16:16→21:08)
--- NOTE | 2020-02-23 16:22 | US ---
EXAMINATION TYPE: US venous doppler duplex LE RT DATE OF EXAM: 02/23/2020 4:03 PM COMPARISON: US 12/22/2019 CLINICAL HISTORY: Swelling on the right LE. Patients states no issues SIDE PERFORMED: Right TECHNIQUE: The lower extremity deep venous system is examined utilizing real time linear array sonog eri with graded compression, doppler sonography and color-flow sonography. VESSELS IMAGED: External Iliac Vein (EIV) Common Femoral Vein Deep Femoral Vein Greater Saphenous Vein * Femoral Vein Popliteal Vein Small Saphenous Vein * Proximal Calf Veins (* superficial vessels) Right Leg: Probable chronic DVT visualized right popliteal vein IMPRESSION: Suspect chronic DVT right popliteal vein. No definite acute component seen.
[2020-02-23 16:51] LABS: Glucose,Whole Blood 110 mg/dL (75-99)
--- NOTE | 2020-02-23 17:23 | PN ---
PROGRESS NOTE DATE OF SERVICE: 02/23/2020 REASON FOR FOLLOWUP: Pneumonia. INTERVAL HISTORY: The patient is currently afebrile. Patient is breathing more comfortably. The patient's cough has decreased in intensity, less productive. No nausea, vomiting. No abdominal pain or diarrhea. PHYSICAL EXAMINATION: Blood pressure 124/58 with a pulse of 86, temperature 98.6. He is 97% on 8 L trach collar. General description is an elderly male up in the chair in no distress. Respiratory system: coarse breath sounds bilaterally. No wheeze. HEART S1, S2. Regular rate and rhythm. Abdomen soft, no tenderness. LABS: Hemoglobin is 10.8, white count 13.1, BUN of 13, creatinine 0.71. Sputum showing presumptive Staph aureus and Gram-negative bacilli. DIAGNOSTIC IMPRESSION AND PLAN: Patient admitted to the hospital with pneumonia. Sputum now showing a gram-negative as well as Staph aureus. He is covered with Zosyn. We will add Zyvox to cover for the Staph aureus while waiting for the sensitivity and monitor clinical course closely. MMODL / IJN: [id number] /
[2020-02-23 20:58] LABS: Glucose,Whole Blood 136 mg/dL (75-99)
[2020-02-23] MEDS ORDERED: QUEtiapine 100 MG TAB PO SCH (21:00)
[2020-02-23] MEDS: MELATONIN 3 MG TABLET PO SCH (21:08)
[2020-02-24 06:33] LABS: Glucose,Whole Blood 159 mg/dL (75-99)
[2020-02-24 07:22] LABS: African American GFR (CKD) >90 (>60 ml/min/1.73 sqM); Anion Gap 10 mmol/L; Blood Urea Nitrogen 11 mg/dL (9-20); Calcium 8.5 mg/dL (8.4-10.2); Carbon Dioxide 21 mmol/L (22-30); Chloride 110 mmol/L (98-107); Glucose 147 mg/dL (74-99); Non-African American GFR(CKD) >90 (>60 ml/min/1.73 sqM); Potassium 3.4 mmol/L (3.5-5.1); Sodium 141 mmol/L (137-145)
[2020-02-24 07:30] LABS: HCT 34.4 % (39.0-53.0); HGB 10.9 gm/dL (13.0-17.5); Hypochromasia Slight; MCH 30.6 pg (25.0-35.0); MCHC 31.6 g/dL (31.0-37.0); Mean Platelet Volume 9.2; Platelet Count 266 k/uL (150-450); RBC 3.55 m/uL (4.30-5.90); RDW 13.7 % (11.5-15.5); WBC 10.5 k/uL (3.8-10.6)
[2020-02-24] MEDS: IPRATROPIUM-ALBUTEROL 3 ML NEB INHALATION SCH ×4 (07:59→20:47)
[2020-02-24] MEDS: FORMOTEROL FUMARATE 20 MCG/2 ML NEBU INHALATION SCH ×2 (07:59→20:47)
[2020-02-24 08:30] LABS: Eosinophils # (M) 0.32 k/uL (0-0.7); Lymphocytes # (M) 0.84 k/uL (1.0-4.8); Monocytes # (M) 0.84 k/uL (0-1.0); Neutrophils # (M) 8.51 k/uL (1.3-7.7); Neutrophils % (M) 81 %; Nucleated Red Blood Cells 0 /100 WBC (0-0); Total Cells Counted 100
[2020-02-24] MEDS: ATORVASTATIN 20 MG TAB PO SCH (08:53)
[2020-02-24] MEDS: PIPERACILLIN-TAZOBACTAM 3.375 GM in SODIUM CHLORIDE 0.9% 100 ML IVPB SCH (08:53)
[2020-02-24] MEDS: APIXABAN 5 MG TAB PO SCH ×2 (08:53→19:55)
[2020-02-24] MEDS: DILTIAZEM ORAL 60 MG TAB PO SCH ×3 (08:53→19:55)
[2020-02-24] MEDS: QUEtiapine 50 MG TAB PO SCH ×2 (08:53→19:55)
[2020-02-24] MEDS: POTASSIUM BICARBONATE/CIT AC 20 MEQ TABLET.EFF NG-TUBE SCH ×2 (08:53→11:52)
[2020-02-24] MEDS: NICOTINE 14MG/24HR PATCH TRANSDERM SCH (08:53)
[2020-02-24] MEDS: FAMOTIDINE 20 MG TAB PO SCH (08:53)
[2020-02-24] MEDS: METOPROLOL TARTRATE 50 MG TAB PO SCH ×2 (08:53→19:55)
[2020-02-24] MEDS: LINEZOLID 600 MG TAB PO SCH (08:53)
[2020-02-24] MEDS: THIAMINE 100 MG TAB PO SCH (08:53)
[2020-02-24] MEDS ORDERED: POTASSIUM CHLORIDE ER 20 MEQ TAB.ER PO STA (08:54)
--- NOTE | 2020-02-24 09:27 | PN ---
PROGRESS NOTE Mr. Laurent is a 64-year-old male with a known history of left vocal cord mass status post tracheostomy with a differentiated squamous carcinoma, PEG tube placement, who presented with symptoms of dyspnea, was noted to be in atrial fibrillation. He is back in sinus mechanism at this time. He is still dyspneic. He denies any dizziness or palpitation. He denies any nausea. He denies any chest discomfort. He continues to be at this time on Eliquis 5 mg twice a day, Lipitor 20 mg daily, diltiazem 60 mg 3 times a day, metoprolol tartrate 100 mg twice a day. PHYSICAL EXAMINATION: Blood pressure 132/60 with a heart rate in 90s. Lungs with decreased air exchange. No wheezes. HEART: Regular rate and rhythm, S1, S2. No S3. No rub. Tracheostomy in place. ABDOMEN: Soft. PEG tube in place. EXTREMITIES: No edema. LAB DATA: Revealed potassium 3.4, BUN and creatinine 11 and 0.73. Hemoglobin of 10.9. IMPRESSION: 1. Symptoms of progressive dyspnea with probable bronchitis. 2. Paroxysmal atrial fibrillation back in sinus mechanism. 3. History of vocal cord carcinoma, status post tracheostomy and PEG tube placement. 4. Prior history of smoking and history of obstructive lung disease. RECOMMENDATIONS: From the cardiac standpoint, I will replace his potassium. Continue rest of his medical regimen. Follow his rhythm and his hemoglobin and depending on that, further recommendations will be made. MMODL / IJN: [id number] /
[2020-02-24] MEDS: LEVOFLOXACIN 750MG-D5W PMX 750 MG in DEXTROSE/WATER 1 150ML.BAG IVPB SCH (11:51)
[2020-02-24] MEDS: SERTRALINE 25 MG TAB PO SCH (11:52)
[2020-02-24 12:02] LABS: Glucose,Whole Blood 138 mg/dL (75-99)
--- NOTE | 2020-02-24 12:04 | P.PN ---
Subjective Progress Note Date: 02/24/20 Principal diagnosis: Acute hypoxic respiratory failure secondary to acute tracheobronchitis. 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 Patient also had a PEG tube placed for nutritional support. Patient had a prolonged hospitalization back in December during which left vocal cord squamous cell carcinoma was diagnosed. His staging CTs did not reveal metastatic disease, PET scan on 02/05/2020 showed uptake only in the left laryngeal mass with max SUV of 12.5. Patient was discharged to [facility] following his hospitalization, and was discharged home sometime in mid January. He was due to start chemoradiation this coming Tuesday on 02/25/2020. However patient de veloped progressive cough, purulent sputum production, increasing shortness of breath, and chills, he was taken to the hospital to [facility]. Patient also was found to be in atrial fibrillation with RVR. He had symptoms of increased weakness and fatigue. COVID 19 was ruled out. Chest x-ray showed clearing of the left basilar pneumonia and no new focal consolidation. Labs showed a white blood cell, 12.1, hemoglobin of 15.5, sodium of 141, potassium is 3.7, chloride is 110, CO2 is 23, BUN 16 creatinine 0.79, pro calcitonin was low at 0.10, patient is covered with Zosyn for empiric antibiotic coverage, he was fluid resuscitated, he is awake and alert, dentition is appropriate, he is on trach collar at 6 L/m, and his pulse ox is 94%, afebrile, large amount of thick secretions is being suctioned out of his trach, and preliminary sputum Gram stain showed moderate epithelial cells, few gram-positive cocci, few gram- positive bacilli and rare gram-negative bacilli The patient is seen today 02/23/2020 in follow-up on the selective care unit. He is currently sitting up in a chair at the bedside. Awake and alert in no acute distress. He is maintaining good O2 saturations in the 90s on 35% trach collar. He's been afebrile. Hemodynamically stable. Sputum culture is positive for presumptive staph aureus/gram-negative bacilli. White count 13.1. Hemoglobin 10.2. Sodium 141. Potassium 3.2. Creatinine 0.79. He is currently on Zosyn. The patient is seen today 02/24/2020 in follow-up on the selective care unit. He is currently sitting up in bed. Awake and alert in no acute distress. Denies any worsening shortness of breath. He is maintaining O2 saturations in the 90s on 35% trach collar. He is afebrile. Sputum culture is positive for Staphylococcus aureus and Serratia marcescens. He is currently on Zosyn and Zyvox. White count 10.5. Hemoglobin 10.9. Creatinine 0.73. He remains on bronchodilators. Anticoagulated with Eliquis. NicoDerm patch in place. Objective - Vital Signs Vital signs: Vital Signs Temp 98 F 02/24/20 09:00 Pulse 92 02/24/20 11:41 Resp 20 02/24/20 09:00 BP 151/74 02/24/20 09:00 Pulse Ox 90 L 02/24/20 09:00 Intake & Output 02/23/20 02/24/20 02/24/20 18:59 06:59 18:59 Intake Total 1340 840 240 Output Total 1900 175 450 Balance -560 665 -210 Weight 66 kg 66 kg Intake: Intake, IV Titration 740 Amount Sodium Chloride 0.9% 1, 740 000 ml @ 100 mls/hr IV . Q10H [facility] Rx#:[id number] Oral 0 240 Tube Feeding 600 840 Output: Urine 1900 175 450 Other: Voiding Method Urinal Urinal # Voids 1 1 # Bowel Movements 1 1 - Exam GENERAL EXAM: Alert, pleasant, 64-year-old male patient, on trach collar, 35% FiO2, comfortable in no apparent distress. HEAD: Normocephalic/atraumatic. EYES: Normal reaction of pupils, equal size. Conjunctiva pink, sclera white. NOSE: Clear with pink turbinates. THROAT: No erythema or exudates. NECK: No masses, no JVD, no thyroid enlargement, no adenopathy. Midline tracheostomy CHEST: No chest wall deformity. Symmetrical expansion. LUNGS: Equal air entry with some scattered rhonchi, but no wheeze, dullness. CVS: Regular rate and rhythm, normal S1 and S2, no gallops, no murmurs, no rubs ABDOMEN: Soft, nontender. No hepatosplenomegaly, normal bowel sounds, no guarding or rigidity. PEG tube present, with tube feedings infusing EXTREMITIES: No clubbing, no edema, no cyanosis, 2+ pulses and upper and lower extremities. MUSCULOSKELETAL: Muscle strength and tone normal. SPINE: No scoliosis or deformity SKIN: No rashes CENTRAL NERVOUS SYSTEM: No focal deficits, tone is normal in all 4 extremities. PSYCHIATRIC: Alert and oriented -3. Appropriate affect. Intact judgment and insight. - Labs CBC & Chem 7: 02/24/20 05:50 02/24/20 05:49 Labs: Abnormal Lab Results - Last 24 Hours (Table) 02/23/20 02/23/20 02/23/20 Range/Units 12:03 16:50 20:56 RBC (4.30-5.90) m/uL Hgb (13.0-17.5) gm/dL Hct (39.0-53.0) % Neutrophils # (Manual) (1.3-7.7) k/uL Lymphocytes # (Manual) (1.0-4.8) k/uL Potassium (3.5-5.1) mmol/L Chloride (98-107) mmol/L Carbon Dioxide (22-30) mmol/L Glucose (74-99) mg/dL POC Glucose (mg/dL) 147 H 110 H 136 H (75-99) mg/dL 02/24/20 02/24/20 02/24/20 Range/Units 05:49 05:50 06:30 RBC 3.55 L (4.30-5.90) m/uL Hgb 10.9 L (13.0-17.5) gm/dL Hct 34.4 L (39.0-53.0) % Neutrophils # (Manual) 8.51 H (1.3-7.7) k/uL Lymphocytes # (Manual) 0.84 L (1.0-4.8) k/uL Potassium 3.4 L (3.5-5.1) mmol/L Chloride 110 H (98-107) mmol/L Carbon Dioxide 21 L (22-30) mmol/L Glucose 147 H (74-99) mg/dL POC Glucose (mg/dL) 159 H (75-99) mg/dL Microbiology - Last 24 Hours (Table) 02/21/20 20:02 Gram Stain - Final Sputum Sputum Culture - Final Staphylococcus aureus Serratia marcescens Assessment and Plan Assessment: #1. Acute hypoxic respiratory failure related to methicillin sensitive staph aureus and Serratia marcescens #2. Weakness, dehydration, increased phlegm production, cough, related to the above #3. New onset atrial fibrillation with rapid ventricular response on presentation, currently better controlled, possibly related to dehydration and sepsis #4. 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 Patient is due to start treatment on Tuesday on 02/25/2020 with hemotherapy and radiation #5. Previous history of EtOH abuse #6. History of right lower extremity DVT in 2018, patient is not a candidate for chronic anticoagulation, he is status post IVC filter placement #7. Underlying COPD #8. Ex-smoker Plan: The patient was seen and evaluated by Dr. Olivera Sputum cultures positive for MSSA and Serratia marcescens Discontinued Zosyn and Zyvox Initiated Levaquin Continue bronchodilators We'll continue to follow I, the cosigning physician, performed a history & physical examination of the patient. Lungs sounds with bilateral scattered rhonchi. Maintaining good O2 saturations in the 90s on 35% FiO2 via trach collar. I discussed the assessment and plan of care with my nurse practitioner, Sharifa Bennett. I attest to the above note as dictated by her.
--- NOTE | 2020-02-24 12:09 | P.PN ---
Subjective Progress Note Date: 02/24/20 Principal diagnosis: Sepsis, atrial fibrillation Mr. Laurent is a 64-year-old male with a past medical history of laryngeal cancer, PE and DVT, status post trach and PEG, hypertension, hyperlipidemia, GERD who was transferred from [facility] for upper airway congestion cough and difficulty in breathing. As the patient was having increased secretions from his trach tube he is currently being treated for acute tracheobronchitis with Zosyn. ID Dr. Rasmussen on board and following the patient. Patient also has new onset atrial fibrillation for which cardiology is following him closely. Patient COVID 19 negative. Chest x-ray was showing clearing of left basilar pneumonia and no new focal consolidations. On 02/24/2020 - overnight no active issues reported by nursing staff. Patient is lying in his bed, appears to be no acute distress. He complains of generalized weakness and fatigue. He mentions that his secretions from the trache collar have decreased. Patient denies having any chest pain or palpitations. His difficulty in breathing is at baseline. He denies having any fevers chills or rigors. No abdominal pain nausea vomiting or diarrhea. No new swelling of his lower extremities. On reviewing the patient's vitals T-max is 100.6 in the past 24 hours. He is maintaining his oxygen saturation are 90% on 10 L of high flow nasal cannula.Patient's sputum culture is positive for Staphylococcus aureus and Serratia. So the patient is placed in isolation. He received a dose of Zyvox last night and levofloxacin has been added by pulmonary this morning. Active Medications Albuterol Sulfate (Ventolin Nebulized) 2.5 mg INHALATION RT-Q2H PRN PRN Reason: Shortness Of Breath Or Wheezing Albuterol/Ipratropium (Duoneb 0.5 Mg-3 Mg/3 Ml Soln) 3 ml INHALATION RT-QID [facility] Last Admin: 02/24/20 11:28 Dose: 3 ml Documented by: Apixaban (Eliquis) 5 mg PO BID [facility] Last Admin: 02/24/20 08:53 Dose: 5 mg Documented by: Atorvastatin Calcium (Lipitor) 20 mg PO DAILY [facility] Last Admin: 02/24/20 08:53 Dose: 20 mg Documented by: Diltiazem HCl (Cardizem Oral) 60 mg PO TID [facility] Last Admin: 02/24/20 08:53 Dose: 60 mg Documented by: Famotidine (Pepcid) 20 mg PO DAILY [facility] Last Admin: 02/24/20 08:53 Dose: 20 mg Documented by: Formoterol Fumarate (Perforomist) 20 mcg INHALATION RT-BID [facility] Last Admin: 02/24/20 07:59 Dose: 20 mcg Documented by: Sodium Chloride (Saline 0.9%) 1,000 mls @ 40 mls/hr IV .Q24H [facility] Last Admin: 02/23/20 14:57 Dose: 40 mls/hr Documented by: Levofloxacin 750 mg/ IV (Solution) 150 mls @ 100 mls/hr IVPB Q24H [facility] Last Admin: 02/24/20 11:51 Dose: 100 mls/hr Documented by: Melatonin (Melatonin) 3 mg PO HS [facility] Last Admin: 02/23/20 21:08 Dose: 3 mg Documented by: Metoprolol Tartrate (Lopressor) 100 mg PO BID [facility] Last Admin: 02/24/20 08:53 Dose: 100 mg Documented by: Miscellaneous Information (Potassium Per Protocol) 1 each MISCELLANE DAILY PRN; Protocol PRN Reason: Per Protocol Nicotine (Habitrol 14mg/24hr Patch) 1 patch TRANSDERM DAILY [facility] Last Admin: 02/24/20 08:53 Dose: 1 patch Documented by: Quetiapine Fumarate (Seroquel) 50 mg PO BID [facility] Last Admin: 02/24/20 08:53 Dose: 50 mg Documented by: Sertraline HCl (Zoloft) 25 mg PO DAILY [facility] Stop: 02/28/20 09:01 Last Admin: 02/24/20 11:52 Dose: 25 mg Documented by: Sertraline HCl (Zoloft) 50 mg PO DAILY [facility] Thiamine HCl (Vitamin B-1) 100 mg PO DAILY@1200 [facility] Last Admin: 02/24/20 08:53 Dose: 100 mg Documented by: . Objective - Vital Signs Vital signs: Vital Signs Temp 98 F 02/24/20 09:00 Pulse 95 02/24/20 09:00 Resp 20 02/24/20 09:00 BP 151/74 02/24/20 09:00 Pulse Ox 90 L 02/24/20 09:00 Intake & Output 02/23/20 02/24/20 02/24/20 18:59 06:59 18:59 Intake Total 1340 840 Output Total 1900 175 150 Balance -560 665 -150 Weight 66 kg 66 kg Intake: Intake, IV Titration 740 Amount Sodium Chloride 0.9% 1, 740 000 ml @ 100 mls/hr IV . Q10H [facility] Rx#:[id number] Oral 0 Tube Feeding 600 840 Output: Urine 1900 175 150 Other: Voiding Method Urinal Urinal # Voids 1 1 # Bowel Movements 1 1 - Exam PHYSICAL EXAMINATION: GENERAL: The patient is alert and oriented x3, thin built appears , no acute distress HEENT: Pupils are round and equally reacting to light. EOMI. No scleral icterus. Mild pallor. Normocephalic, atraumatic. Less secretions noted from the trach, excoriation of the skin around the trach. CARDIOVASCULAR: S1 and S2 present. No murmurs, rubs, or gallops. PULMONARY: Trache collar in place bilateral rhonchi good air entry into bilateral lung [place]. No wheezing ABDOMEN: Soft, nontender, nondistended, normoactive bowel sounds. PEG tube in p lace. MUSCULOSKELETAL: No joint swelling or deformity. EXTREMITIES: Mild edema. NEUROLOGICAL: Gross neurological examination did not reveal any focal deficits. - Labs CBC & Chem 7: 02/24/20 05:50 02/24/20 05:49 Labs: Abnormal Lab Results - Last 24 Hours (Table) 02/23/20 02/23/20 02/23/20 Range/Units 05:45 12:03 16:50 RBC (4.30-5.90) m/uL Hgb (13.0-17.5) gm/dL Hct (39.0-53.0) % Neutrophils # (Manual) (1.3-7.7) k/uL Lymphocytes # (Manual) (1.0-4.8) k/uL Potassium (3.5-5.1) mmol/L Chloride (98-107) mmol/L Carbon Dioxide (22-30) mmol/L Glucose (74-99) mg/dL POC Glucose (mg/dL) 147 H 110 H (75-99) mg/dL Albumin 2.4 L (3.5-5.0) g/dL 02/23/20 02/24/20 02/24/20 Range/Units 20:56 05:49 05:50 RBC 3.55 L (4.30-5.90) m/uL Hgb 10.9 L (13.0-17.5) gm/dL Hct 34.4 L (39.0-53.0) % Neutrophils # (Manual) 8.51 H (1.3-7.7) k/uL Lymphocytes # (Manual) 0.84 L (1.0-4.8) k/uL Potassium 3.4 L (3.5-5.1) mmol/L Chloride 110 H (98-107) mmol/L Carbon Dioxide 21 L (22-30) mmol/L Glucose 147 H (74-99) mg/dL POC Glucose (mg/dL) 136 H (75-99) mg/dL Albumin (3.5-5.0) g/dL 02/24/20 Range/Units 06:30 RBC (4.30-5.90) m/uL Hgb (13.0-17.5) gm/dL Hct (39.0-53.0) % Neutrophils # (Manual) (1.3-7.7) k/uL Lymphocytes # (Manual) (1.0-4.8) k/uL Potassium (3.5-5.1) mmol/L Chloride (98-107) mmol/L Carbon Dioxide (22-30) mmol/L Glucose (74-99) mg/dL POC Glucose (mg/dL) 159 H (75-99) mg/dL Albumin (3.5-5.0) g/dL Microbiology - Last 24 Hours (Table) 02/21/20 20:02 Gram Stain - Final Sputum Sputum Culture - Final Staphylococcus aureus Serratia marcescens Assessment and Plan Assessment: ASSESSMENT Acute hypoxic respiratory failure due to acute tracheobronchitis Sputum culture is positive for staph aureus and Serratia New onset atrial fibrillation with rapid ventricular rate Squamous cell carcinoma of the left vocal cord status post trach and PEG tube placement Hypokalemia History of alcohol abuse History of DVT in 2018, he has IVC filter placed COPD Former smoker Hypertension Hyperlipidemia History of PE in the past Severe protein calorie malnutrition PLAN: Patient still spiked a fever of 100.4 overnight. His sputum cultures have come back positive for staph aureus and Serratia. He received a dose of Zyvox yesterday. Levofloxacin has been added to his antibiotic regimen today by pulmonary. Patient to be continued on breathing treatments and IV steroids. Patient converted into sinus rhythm. Cardiology adjusting his medications for rate control. He is currently on Lopressor 100 mg twice a day and Cardizem 60 mg 3 times a day. Continue on Eliquis for anticoagulation. As the patient was feeling depressed yesterday psych consult was obtained. He does not qualify for inpatient psych but they suggested that he could be started on Zoloft 25 mg. Discussed this with the patient and he is a Reported to be started on it if he it is okay with his . Continue with the rest of his current medication regimen. Overall prognosis is guarded. Further recommendations to follow depending on the progress of the patient.
[2020-02-24] MEDS: SODIUM CHLORIDE 0.9% 1,000 ML IV SCH (17:15)
[2020-02-24 18:04] LABS: Glucose,Whole Blood 161 mg/dL (75-99)
[2020-02-24] MEDS: MELATONIN 3 MG TABLET PO SCH (19:54)
[2020-02-24] MEDS: CEFEPIME 2 GM in SODIUM CHLORIDE 0.9% 100 ML IVPB SCH (19:55)
--- NOTE | 2020-02-24 23:44 | PN ---
PROGRESS NOTE DATE OF SERVICE: 02/24/2020 REASON FOR FOLLOWUP: Pneumonia. INTERVAL HISTORY: The patient is currently afebrile. Patient is breathing comfortably. Complaining of still having some cough, though seemed to be decreased in intensity, productive sputum. No vomiting or any diarrhea. PHYSICAL EXAMINATION: Blood pressure 132/65, pulse of 78, temperature 98. He is 96% on 8 L . General description is an elderly male up in the chair in no distress. RESPIRATORY SYSTEM: Unlabored breathing, some coarse breath sounds at the bases. No wheeze. HEART: S1, S2. Regular rate and rhythm. ABDOMEN: Soft, no tenderness. LABS: Hemoglobin is 10.9, white count 10.5, BUN of 11, creatinine 0.73. Sputum has been finalized with MSSA and Serratia marcescens. DIAGNOSTIC IMPRESSION AND PLAN: Patient with pneumonia. Sputum showing Serratia marcescens and MSSA. Chest x-ray will be repeated for tomorrow for followup. Antibiotic adjusted to Levaquin. We will add cefepime while inpatient and monitor his clinical course closely. MMODL / IJN: [id number] /
[2020-02-25 00:19] LABS: Glucose,Whole Blood 134 mg/dL (75-99)
[2020-02-25 06:05] LABS: Glucose,Whole Blood 149 mg/dL (75-99)
[2020-02-25] MEDS: FORMOTEROL FUMARATE 20 MCG/2 ML NEBU INHALATION SCH ×2 (07:30→20:33)
[2020-02-25] MEDS: IPRATROPIUM-ALBUTEROL 3 ML NEB INHALATION SCH ×4 (07:30→20:33)
[2020-02-25 07:35] LABS: African American GFR (CKD) >90 (>60 ml/min/1.73 sqM); Anion Gap 10 mmol/L; Blood Urea Nitrogen 11 mg/dL (9-20); Calcium 8.7 mg/dL (8.4-10.2); Carbon Dioxide 22 mmol/L (22-30); Chloride 108 mmol/L (98-107); Glucose 139 mg/dL (74-99); Non-African American GFR(CKD) >90 (>60 ml/min/1.73 sqM); Potassium 3.5 mmol/L (3.5-5.1); Sodium 140 mmol/L (137-145)
--- NOTE | 2020-02-25 07:37 | XR ---
EXAMINATION TYPE: XR chest 1V portable DATE OF EXAM: 02/25/2020 HISTORY: Shortness of breath. COMPARISON: None. TECHNIQUE: Single view of the chest is submitted. FINDINGS: Demonstrated are scattered senescent parenchymal change. Tracheostomy tube is in place. Increasing infiltrates throughout the right lung with small right-sided pleural effusion. Mild patchy density left medial lung base as well. The heart is stable. Hilar and mediastinal structures are within normal limits. Degenerative changes are seen of the dorsal spine. IMPRESSION: 1. Increasing infiltrates throughout the right lung with small right-sided pleural effusion. Mild pa tchy density left medial lung base as well.
[2020-02-25] MEDS: NICOTINE 14MG/24HR PATCH TRANSDERM SCH (09:22)
[2020-02-25] MEDS: METOPROLOL TARTRATE 50 MG TAB PO SCH ×2 (09:22→22:06)
[2020-02-25] MEDS: FAMOTIDINE 20 MG TAB PO SCH (09:22)
[2020-02-25] MEDS: CEFEPIME 2 GM in SODIUM CHLORIDE 0.9% 100 ML IVPB SCH ×2 (09:22→22:05)
[2020-02-25] MEDS: DILTIAZEM ORAL 60 MG TAB PO SCH ×3 (09:23→22:05)
[2020-02-25] MEDS: ATORVASTATIN 20 MG TAB PO SCH (09:23)
[2020-02-25] MEDS: QUEtiapine 50 MG TAB PO SCH ×2 (09:23→22:05)
[2020-02-25] MEDS: APIXABAN 5 MG TAB PO SCH ×2 (09:23→22:05)
[2020-02-25] MEDS: SERTRALINE 25 MG TAB PO SCH (09:23)
[2020-02-25] MEDS ORDERED: VANCOMYCIN IV PER PHARMACY 1 EACH MISC MISCELLANE PRN (09:37)
[2020-02-25] MEDS: LEVOFLOXACIN 750MG-D5W PMX 750 MG in DEXTROSE/WATER 1 150ML.BAG IVPB SCH (11:16)
--- NOTE | 2020-02-25 11:23 | FL ---
EXAMINATION TYPE: FL barium swallow w video DATE OF EXAM: 02/25/2020 COMPARISON: NONE HISTORY: Post tracheostomy the laryngeal cancer TECHNIQUE: Fluoroscopy. FINDINGS: Fluoroscopic guidance was provided for the procedure performed [facility]. Please see complete report forthcoming from the Speech Pathology departmen t. Various consistencies from thin liquid to solids were administered. Fluoroscopy time 43 seconds. Number of images: 0. No aspiration or penetration was evident. No significant pooling was observed in the vallecula. Very minimal residual is coated in the vallecul a. There was normal propulsion of the bolus. Exam is somewhat limited due to thin liquids and pudding thick consistency due to the discomfort of t he patient during the exam. Patient was as cooperative as possible could not perform all consistencie s at this time. IMPRESSION: 1. Essentially normal swallowing with thin liquids and pudding thick consistency. No aspiration or pe netration was evident during this exam.
--- NOTE | 2020-02-25 11:55 | P.PN ---
Subjective Progress Note Date: 02/25/20 Principal diagnosis: Sepsis, atrial fibrillation Mr. Laurent is a 64-year-old male with a past medical history of laryngeal cancer, PE and DVT, status post trach and PEG, hypertension, hyperlipidemia, GERD who was transferred from [facility] for upper airway congestion cough and difficulty in breathing. As the patient was having increased secretions from his trach tube he is currently being treated for acute tracheobronchitis with Zosyn. ID Dr. Rasmussen on board and following the patient. Patient also has new onset atrial fibrillation for which cardiology is following him closely. Patient COVID 19 negative. Chest x-ray was showing clearing of left basilar pneumonia and no new focal consolidations. On 02/24/2020 - overnight no active issues reported by nursing staff. Patient is lying in his bed, appears to be no acute distress. He complains of generalized weakness and fatigue. He mentions that his secretions from the trache collar have decreased. Patient denies having any chest pain or palpitations. His difficulty in breathing is at baseline. He denies having any fevers chills or rigors. No abdominal pain nausea vomiting or diarrhea. No new swelling of his lower extremities. On reviewing the patient's vitals T-max is 100.6 in the past 24 hours. He is maintaining his oxygen saturation are 90% on 10 L of high flow nasal cannula.Patient's sputum culture is positive for Staphylococcus aureus and Serratia. So the patient is placed in isolation. He received a dose of Zyvox last night and levofloxacin has been added by pulmonary. On 02/25/2020- last night patient was making suicidal comments. He said" I want to ", he was making I'm concerned with his hand pointing towards his head. So suicidal precautions were initiated and a sitter was placed at the bedside. This morning when I spoke with him, he states that he is still feeling low and depressed. Patient has been started on Zoloft 25 mg yesterday. On review of systems patient denies having any fevers. He complains of generalized weakness and fatigue. He still having secretions from his trach collar. Difficulty in breathing is improving. No chest pain or palpitations. No abdominal pain or nausea or vomiting. No new swelling of his lower extremities. On reviewing the vitals patient's T-max was 99.5, heart rate is 100s to 110s. Saturating 98% on trach collar 8 L, blood pressure 138 with 66. Patient's labs from this morning sodium 140, respirations are 0.5, BUN/creatinine 11 creatinine 0.76. Active Medications Albuterol Sulfate (Ventolin Nebulized) 2.5 mg INHALATION RT-Q2H PRN PRN Reason: Shortness Of Breath Or Wheezing Albuterol/Ipratropium (Duoneb 0.5 Mg-3 Mg/3 Ml Soln) 3 ml INHALATION RT-QID [facility] Last Admin: 02/25/20 11:41 Dose: 3 ml Documented by: Apixaban (Eliquis) 5 mg PO BID [facility] Last Admin: 02/25/20 09:23 Dose: 5 mg Documented by: Atorvastatin Calcium (Lipitor) 20 mg PO DAILY [facility] Last Admin: 02/25/20 09:23 Dose: 20 mg Documented by: Diltiazem HCl (Cardizem Oral) 60 mg PO TID [facility] Last Admin: 02/25/20 09:23 Dose: 60 mg Documented by: Famotidine (Pepcid) 20 mg PO DAILY [facility] Last Admin: 02/25/20 09:22 Dose: 20 mg Documented by: Formoterol Fumarate (Perforomist) 20 mcg INHALATION RT-BID [facility] Last Admin: 02/25/20 07:30 Dose: 20 mcg Documented by: Sodium Chloride (Saline 0.9%) 1,000 mls @ 40 mls/hr IV .Q24H [facility] Last Admin: 02/24/20 17:15 Dose: Not Given Documented by: Levofloxacin 750 mg/ IV (Solution) 150 mls @ 100 mls/hr IVPB Q24H [facility] Last Admin: 02/25/20 11:16 Dose: 100 mls/hr Documented by: Cefepime HCl 2 gm/ Sodium (Chloride) 100 mls @ 200 mls/hr IVPB Q12HR [facility] Last Admin: 02/25/20 09:22 Dose: 200 mls/hr Documented by: Vancomycin HCl 1,250 mg/ (Sodium Chloride) 250 mls @ 125 mls/hr IVPB Q8H [facility] Melatonin (Melatonin) 3 mg PO HS [facility] Last Admin: 02/24/20 19:54 Dose: 3 mg Documented by: Metoprolol Tartrate (Lopressor) 100 mg PO BID [facility] Last Admin: 02/25/20 09:22 Dose: 100 mg Documented by: Miscellaneous Information (Potassium Per Protocol) 1 each MISCELLANE DAILY PRN; Protocol PRN Reason: Per Protocol Nicotine (Habitrol 14mg/24hr Patch) 1 patch TRANSDERM DAILY [facility] Last Admin: 02/25/20 09:22 Dose: 1 patch Documented by: Quetiapine Fumarate (Seroquel) 50 mg PO BID [facility] Last Admin: 02/25/20 09:23 Dose: 50 mg Documented by: Sertraline HCl (Zoloft) 50 mg PO DAILY [facility] Thiamine HCl (Vitamin B-1) 100 mg PO DAILY@1200 [facility] Last Admin: 02/24/20 08:53 Dose: 100 mg Documented by: Objective - Vital Signs Vital signs: Vital Signs Temp 98.7 F 02/25/20 11:18 Pulse 89 02/25/20 11:18 Resp 18 02/25/20 11:18 BP 138/66 02/25/20 11:18 Pulse Ox 98 02/25/20 11:18 Intake & Output 02/24/20 02/25/20 02/25/20 18:59 06:59 18:59 Intake Total 1080 280 280 Output Total 452 375 426 Balance 628 -95 -146 Weight 66 kg 133.5 kg 133.5 kg Intake: Oral 240 Tube Feeding 840 280 280 Output: Urine 450 375 425 Stool 2 1 Other: Voiding Method Urinal Urinal Urinal # Voids 1 1 1 # Bowel Movements 1 - Exam PHYSICAL EXAMINATION: GENERAL: The patient is alert and oriented x3, thin built appears , no acute distress HEENT: Pupils are round and equally reacting to light. EOMI. No scleral icterus. Mild pallor. Normocephalic, atraumatic. Less secretions noted from the trach, excoriation of the skin around the trach. CARDIOVASCULAR: S1 and S2 present. No murmurs, rubs, or gallops. PULMONARY: Trache collar in place bilateral rhonchi good air entry into avis ateral lung mcgovern. No wheezing ABDOMEN: Soft, nontender, nondistended, normoactive bowel sounds. PEG tube in place. MUSCULOSKELETAL: No joint swelling or deformity. EXTREMITIES: Mild edema. Right heel ulcer. Left lower extremity more swollen than right- stable NEUROLOGICAL: Gross neurological examination did not reveal any focal deficits. - Labs CBC & Chem 7: 02/24/20 05:50 02/25/20 06:26 Labs: Abnormal Lab Results - Last 24 Hours (Table) 02/24/20 02/24/20 02/25/20 Range/Units 12:00 18:03 00:18 Chloride (98-107) mmol/L Glucose (74-99) mg/dL POC Glucose (mg/dL) 138 H 161 H 134 H (75-99) mg/dL 02/25/20 02/25/20 Range/Units 06:04 06:26 Chloride 108 H (98-107) mmol/L Glucose 139 H (74-99) mg/dL POC Glucose (mg/dL) 149 H (75-99) mg/dL Microbiology - Last 24 Hours (Table) 02/21/20 20:02 Gram Stain - Final Sputum Sputum Culture - Final Staphylococcus aureus Serratia marcescens Assessment and Plan Assessment: ASSESSMENT Acute hypoxic respiratory failure due to acute tracheobronchitis Sputum culture is positive for staph aureus and Serratia Suicidal ideation New onset atrial fibrillation with rapid ventricular rate 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 Patient is currently on vancomycin, cefepime and levofloxacin. Patient to be continued on breathing treatments and IV steroids. Cardiology adjusting his medications for rate control. He is currently on Lopressor 100 mg twice a day and Cardizem 60 mg 3 times a day. Continue on Eliquis for anticoagulation. As the patient is actively suicidal, will continue with sitter at the bedside. We'll also inform psychiatry services who have been already consulted. Continue with Zoloft 25 mg. Continue with the rest of his current medication regimen. Overall prognosis is guarded. Further recommendations to follow depending on the progress of the patient.
[2020-02-25 12:01] LABS: Glucose,Whole Blood 160 mg/dL (75-99)
--- NOTE | 2020-02-25 12:16 | P.PN ---
Subjective Progress Note Date: 02/25/20 64-year-old white male patient with a recent diagnosis of the left vocal cord mass, patient underwent tracheostomy and biopsy of the mass, and biopsy was positive for invasive, moderately differentiated squamous cell carcinoma. Patient also had a PEG tube placed for nutritional support. Patient had a prolonged hospitalization back in December during which left vocal cord squamous cell carcinoma was diagnosed. His staging CTs did not reveal metastatic disease, PET scan on 02/05/2020 showed uptake only in the left laryngeal mass with max SUV of 12.5. Patient was discharged to [facility] following his hosp italization, and was discharged home sometime in mid January. He was due to start chemoradiation this coming Tuesday on 02/25/2020. However patient developed progressive cough, purulent sputum production, increasing shortness of breath, and chills, he was taken to the hospital to [facility]. Patient also was found to be in atrial fibrillation with RVR. He had symptoms of increased weakness and fatigue. COVID 19 was ruled out. Chest x-ray showed clearing of the left basilar pneumonia and no new focal consolidation. Labs showed a white blood cell, 12.1, hemoglobin of 15.5, sodium of 141, potassium is 3.7, chloride is 110, CO2 is 23, BUN 16 creatinine 0.79, pro calcitonin was low at 0.10, patient is covered with Zosyn for empiric antibiotic coverage, he was fluid resuscitated, he is awake and alert, dentition is appropriate, he is on trach collar at 6 L/m, and his pulse ox is 94%, afebrile, large amount of thick secretions is being suctioned out of his trach, and preliminary sputum Gram stain showed moderate epithelial cells, few gram-positive cocci, few gram-positive bacilli and rare gram-negative bacilli The patient is seen today 02/23/2020 in follow-up on the selective care unit. He is currently sitting up in a chair at the bedside. Awake and alert in no ac kev distress. He is maintaining good O2 saturations in the 90s on 35% trach collar. He's been afebrile. Hemodynamically stable. Sputum culture is positive for presumptive staph aureus/gram-negative bacilli. White count 13.1. Hemoglobin 10.2. Sodium 141. Potassium 3.2. Creatinine 0.79. He is currently on Zosyn. The patient is seen today 02/24/2020 in follow-up on the selective care unit. He is currently sitting up in bed. Awake and alert in no acute distress. Denies any worsening shortness of breath. He is maintaining O2 saturations in the 90s on 35% trach collar. He is afebrile. Sputum culture is positive for Staphylococcus aureus and Serratia marcescens. He is currently on Zosyn and Zyvox. White count 10.5. Hemoglobin 10.9. Creatinine 0.73. He remains on bronchodilators. Anticoagulated with Eliquis. NicoDerm patch in place. On 02/25/2020 a.m. seeing this patient in follow-up. Medical floor. The patient is having significant amount of rest or secretions in his quite congested cough noted considerable amount of mucus. He is previous cultures of shown a combination of MSSA and Serratia and the patient was given accommodation Zosyn and Levaquin. Nevertheless, the follow-up chest exit was obtained this morning shows increasing infiltration of the right lung and a small right-sided pleural effusion also developed on the right side. There is mild patchy density in the left medial left lung base as well. Based on all this, an antibiotic change will be needed. He is afebrile. He underwent a swallow evaluation today and the modified barium swallow showed normal swallowing with thin liquids and pudding thick consistency and there was no evidence of any aspiration or penetration during the examination. His white cell count is at 10.5. The rest of the electrodes are all within normal limits. Objective - Vital Signs Vital signs: Vital Signs Temp 98.7 F 02/25/20 11:18 Pulse 80 02/25/20 11:58 Resp 18 02/25/20 11:18 BP 138/66 02/25/20 11:18 Pulse Ox 98 02/25/20 11:18 Intake & Output 02/24/20 02/25/20 02/25/20 18:59 06:59 18:59 Intake Total 1080 280 280 Output Total 452 375 426 Balance 628 -95 -146 Weight 66 kg 133.5 kg 133.5 kg Intake: Oral 240 Tube Feeding 840 280 280 Output: Urine 450 375 425 Stool 2 1 Other: Voiding Method Urinal Urinal Urinal # Voids 1 1 1 # Bowel Movements 1 - Exam GENERAL EXAM: Alert, pleasant, 64-year-old male patient, on trach collar, 35% FiO2, comfortable in no apparent distress. HEAD: Normocephalic/atraumatic. EYES: Normal reaction of pupils, equal size. Conjunctiva pink, sclera white. NOSE: Clear with pink turbinates. THROAT: No erythema or exudates. NECK: No masses, no JVD, no thyroid enlargement, no adenopathy. Midline tracheostomy CHEST: No chest wall deformity. Symmetrical expansion. LUNGS: Equal air entry with some scattered rhonchi, but no wheeze, dullness. CVS: Regular rate and rhythm, normal S1 and S2, no gallops, no murmurs, no rubs ABDOMEN: Soft, nontender. No hepatosplenomegaly, normal bowel sounds, no guarding or rigidity. PEG tube present, with tube feedings infusing EXTREMITIES: No clubbing, no edema, no cyanosis, 2+ pulses and upper and lower extremities. MUSCULOSKELETAL: Muscle strength and tone normal. SPINE: No scoliosis or deformity SKIN: No rashes CENTRAL NERVOUS SYSTEM: No focal deficits, tone is normal in all 4 extremities. PSYCHIATRIC: Alert and oriented -3. Appropriate affect. Intact judgment and insight. - Labs CBC & Chem 7: 02/24/20 05:50 02/25/20 06:26 Labs: Abnormal Lab Results - Last 24 Hours (Table) 02/24/20 02/25/20 02/25/20 Range/Units 18:03 00:18 06:04 Chloride (98-107) mmol/L Glucose (74-99) mg/dL POC Glucose (mg/dL) 161 H 134 H 149 H (75-99) mg/dL 02/25/20 02/25/20 Range/Units 06:26 12:00 Chloride 108 H (98-107) mmol/L Glucose 139 H (74-99) mg/dL POC Glucose (mg/dL) 160 H (75-99) mg/dL Microbiology - Last 24 Hours (Table) 02/21/20 20:02 Gram Stain - Final Sputum Sputum Culture - Final Staphylococcus aureus Serratia marcescens Assessment and Plan Plan: #1. Acute hypoxic respiratory failure related to methicillin sensitive staph aureus and Serratia marcescens, nevertheless, there is worsening of the right lung infiltrate and today's chest x-ray and there is also development of a small right-sided pleural effusion addition to increase rest or secretions on examination. The patient started off with symptoms of tracheal bronchitis and initial chest x-ray was clear and subsequently developed extensive infiltration of the right lung. He was on a, initial Zosyn and Levaquin and vancomycin will be added. #2. Weakness, dehydration, increased phlegm production, cough, related to the above #3. New onset atrial fibrillation with rapid ventricular response on presentation, currently better controlled, possibly related to dehydration and sepsis, and the patient is on long-term anticoagulation with Eliquis #4. 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 Patient is due to start treatment on Tuesday on 02/25/2020 with hemotherapy and radiation #5. Previous history of EtOH abuse #6. History of right lower extremity DVT in 2018, patient is not a candidate for chronic anticoagulation, he is status post IVC filter placement, along with history of pulmonary embolism #7. COPD #8. Ex-smoker Plan: Aggressive pulmonary toileting Swallow evaluation was appropriate recheck sputum Gram stain and cultures Add vancomycin Continue Zosyn and Levaquin We'll continue to follow. Repeat chest x-ray with the next 24 hours.
--- NOTE | 2020-02-25 12:38 | P.PN ---
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 He denies prior history of coronary artery disease. He sees Dr. Love in the office. He came to the hospital with symptoms of cough, congestion, shortness of breath and fever/chills. He was also noted to be in a-fib, for which a cardiology consultation was requested. Patient is currently in a normal sinus rhythm. Blood pressure 138/60 with a heart rate in the 80s, 98% on 8l Trach collar. Sodium 140, potassium 3.5, BUN 11, creatinine 0.7. Objective - Vital Signs Vital signs: Vital Signs Temp 98.7 F 02/25/20 11:18 Pulse 80 02/25/20 11:58 Resp 18 02/25/20 11:18 BP 138/66 02/25/20 11:18 Pulse Ox 98 02/25/20 11:18 Intake & Output 02/24/20 02/25/20 02/25/20 18:59 06:59 18:59 Intake Total 1080 280 280 Output Total 452 375 426 Balance 628 -95 -146 Weight 66 kg 133.5 kg 133.5 kg Intake: Oral 240 Tube Feeding 840 280 280 Output: Urine 450 375 425 Stool 2 1 Other: Voiding Method Urinal Urinal Urinal # Voids 1 1 1 # Bowel Movements 1 - Exam GENERAL: In no acute distress. NECK: Supple without JVD or thyromegaly. Trach in place with mask for oxygenation. LUNGS: Scattered rhonchi, faint expiratory wheezes. No rales. Respiration equal and unlabored. HEART: Irregular rate and rhythm with systolic ejection murmur at the left sternal border, no rubs or gallops. S1 and S2 heard. EXTREMITIES: Normal range of motion, trace edema right lower extremity, no edema on the left. No clubbing or cyanosis. Peripheral pulses intact. - Labs CBC & Chem 7: 02/24/20 05:50 02/25/20 06:26 Labs: Abnormal Lab Results - Last 24 Hours (Table) 02/24/20 02/25/20 02/25/20 Range/Units 18:03 00:18 06:04 Chloride (98-107) mmol/L Glucose (74-99) mg/dL POC Glucose (mg/dL) 161 H 134 H 149 H (75-99) mg/dL 02/25/20 02/25/20 Range/Units 06:26 12:00 Chloride 108 H (98-107) mmol/L Glucose 139 H (74-99) mg/dL POC Glucose (mg/dL) 160 H (75-99) mg/dL Microbiology - Last 24 Hours (Table) 02/21/20 20:02 Gram Stain - Final Sputum Sputum Culture - Final Staphylococcus aureus Serratia marcescens Assessment and Plan Plan: Assessment and plan #1 acute tracheobronchitis, possible pneumonia #2 atrial fibrillation with a rapid ventricular response, paroxysmal, heart rate this morning in the 130 range #3 squamous cell carcinoma of the left vocal cord #4 hypertension #5 PAD #6 nicotine dependence #7 history of PE and DVT #8 GERD #9 IVC filter #10 anemia, hemoglobin 10 this morning 15.5 on admission #11 hypokalemia Plan From cardiology's perspective, we will follow this patient along with you now on an as-needed basis, please don't hesitate to call with any questions. DNP note has been reviewed, I agree with a documented findings and plan of care. Patient was seen and examined.
--- NOTE | 2020-02-25 12:47 | P.PN ---
Progress Note - Text Progress Note Date: 02/25/20 Psychiatric progress note: Interval History: Patient was seen today for psychiatric follow-up for depression and was directable and agreeable to speak with clinical writer at the bedside. Patient continues to have difficulties with acute respiratory failure and possible sepsis and has been placed on IV antibiotics. Patient had a sitter at the bedside as patient earlier stated that she was feeling suicidal and made a comment to nursing staff about getting a gun and putting into his head. The patient states that his mood is "fine" however when probed more about his suicidal remarks patient states that "we want from me and I feel depressed my life sucks". He went on to state that he was just "joking with everyone" when he spoke about suicide and states that "I would never do it". He went on to speak about how his medical condition is deteriorating and he is scared. He states that he does not have any anxiety at this time. He claims that he did not sleep well last night. At this time patient denies any suicidal or homical ideations, intent or plan. Patient denies any auditory, visual hallucinations and denies any paranoia or delusions. Patient denies any side effects from the medications and has been compliant with meds. Mental Status Exam: General Appearance: Patient appears to be thin/frail stated age is alert, superficially cooperative, at times guarded. Patient has a trach collar and a PEG tube. Patient appears to have fair hygiene and grooming wearing hospital gown with poor eye contact. Behavior: Patient is calmly lying in bed without any agitated behavior. Speech: Patient's speech is fluent and nonpressured. Soft-spoken, difficult to comprehend at times due to the tracheostomy. Mood/Affect: Patient reports their mood is "depressed", affect is congruent Suicidality/Homicidality: Patient denies having any suicidal or homicidal ideation intent or plan. Perceptions: Patient denies any visual hallucinations and denies any auditory hallucinations Though content/process: Thought process is linear and goal-directed. [place]. Vague and guarded at times. Memory and concentration: AOX3, grossly intact for the purposes of this session. Judgment and insight: Limited Assessment Depressive disorder unspecified, rule out adjustment disorder with depressed mood versus major depressive disorder Plan: -At this time patient DOES NOT meet criteria for inpatient psychiatric admission. Patient is most likely reacting to the decline in his medical condition which is exacerbating his depressed mood. Patient also received news that he will not be having chemoradiation treatment today which she was hoping for which will drastically affect his mood and may possibly lead to patient making suicidal remarks. -The patient condition continues to deteriorate, could consider palliative care consultation. -Delirium precautions recommended with patient including - avoiding use of narcotics and ASSISTANT [employer]OR [employer]ISTORY sedatives, limit anticholinergic medications when possible, frequent re-orientation, minimize use of restraints, open window shades during the day and close them at night -Would recommend the following medication changes/additions: Patient received 2 doses of Zoloft 25 mg and is increased to 50 mg daily starting tomorrow for mood. Can continue with Seroquel 50 mg twice a day. Increased melatonin 6 mg daily at bedtime for sleep. -Continue with one-to-one sitter for the next 24 hours and can consider discontinuing tomorrow. -Please contact with any questions, we will follow along as needed by primary team.
[2020-02-25] MEDS: THIAMINE 100 MG TAB PO SCH ×2 (15:22→16:59)
[2020-02-25] MEDS: VANCOMYCIN 1,250 MG in SODIUM CHLORIDE 0.9% 250 ML IVPB SCH ×2 (15:22→23:52)
[2020-02-25] MEDS: SODIUM CHLORIDE 0.9% 1,000 ML IV SCH (15:23)
--- NOTE | 2020-02-25 15:56 | P.PN ---
Subjective Progress Note Date: 02/25/20 Principal diagnosis: Tracheobronchitis In follow-up today patient is feeling better, cough continues to be productive, no longer purulent, blood-tinged, breathing is a little less labored, no pain to report. Objective - Vital Signs Vital signs: Vital Signs Temp 98.9 F 02/25/20 15:39 Pulse 86 02/25/20 15:39 Resp 20 02/25/20 15:39 BP 170/79 02/25/20 15:39 Pulse Ox 96 02/25/20 15:39 Intake & Output 02/24/20 02/25/20 02/25/20 18:59 06:59 18:59 Intake Total 1080 280 560 Output Total 452 375 826 Balance 628 -95 -266 Weight 66 kg 133.5 kg 133.5 kg Intake: Oral 240 Tube Feeding 840 280 560 Output: Urine 450 375 825 Stool 2 1 Other: Voiding Method Urinal Urinal Urinal # Voids 1 1 1 # Bowel Movements 1 - Constitutional General appearance: Present: cooperative, no acute distress, thin - EENT Eyes: Present: anicteric sclerae, EOMI ENT: Present: hearing grossly normal - Respiratory Respiratory: bilateral: rhonchi (only expiratory) - Cardiovascular Heart sounds: normal: S1, S2 Abnormal Heart Sounds: Absent: systolic murmur, diastolic murmur, rub, S3 Gallop, S4 Gallop, click, other - Peripheral edema leg Peripheral Edema: bilateral: None - Gastrointestinal General gastrointestinal: Present: soft - Neurologic Neurologic: Present: CNII-XII intact - Musculoskeletal Musculoskeletal: Present: generalized weakness - Psychiatric Psychiatric: Present: A&O x's 3, appropriate affect, intact judgment & insight - Labs CBC & Chem 7: 02/24/20 05:50 02/25/20 06:26 Labs: Abnormal Lab Results - Last 24 Hours (Table) 02/24/20 02/25/20 02/25/20 Range/Units 18:03 00:18 06:04 Chloride (98-107) mmol/L Glucose (74-99) mg/dL POC Glucose (mg/dL) 161 H 134 H 149 H (75-99) mg/dL 02/25/20 02/25/20 Range/Units 06:26 12:00 Chloride 108 H (98-107) mmol/L Glucose 139 H (74-99) mg/dL POC Glucose (mg/dL) 160 H (75-99) mg/dL Assessment and Plan (1) Tracheobronchitis Narrative/Plan: Patient treated for the same. 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 Plan was to begin treatment with weekly cisplatin and concurrent radiation today, delayed until current condition is treated and pt is improved. Current Visit: Yes Status: Acute Priority: High Code(s): C32.0 - MALIGNANT NEOPLASM OF GLOTTIS SNOMED Code(s): 870038050
--- NOTE | 2020-02-25 18:39 | PN ---
PROGRESS NOTE DATE OF SERVICE: 02/25/2020 REASON FOR FOLLOWUP: Pneumonia. INTERVAL HISTORY: The patient is currently afebrile. He is breathing comfortably on trach collar. No chest pain. Cough is about the same, sputum about the same; no worsening. No abdominal pain or diarrhea. PHYSICAL EXAMINATION: Blood pressure 170/79 with a pulse of 83, temperature 98.9. He is 96% on 8 L trach collar. General description is an elderly male up in the chair in no distress. RESPIRATORY SYSTEM: Only mid coarse breath sounds bilaterally. Heart S1, S2. Regular rhythm. ABDOMEN: Soft. No tenderness. LABS: BUN of 11, creatinine 0.70. DIAGNOSTIC IMPRESSION AND PLAN: Patient admitted to hospital with increasing shortness of breath with concern for pneumonia, mostly on the right side. Sputum has been MSSA and Serratia marcescens. Patient is covered with cefepime and Levaquin; to continue and monitor his clinical course closely. MMODL / IJN: [id number] /
[2020-02-25 18:45] LABS: Glucose,Whole Blood 138 mg/dL (75-99)
[2020-02-25] MEDS: MELATONIN 3 MG TABLET PO SCH (22:05)
[2020-02-26 01:44] LABS: Glucose,Whole Blood 168 mg/dL (75-99)
[2020-02-26 06:07] LABS: Glucose,Whole Blood 136 mg/dL (75-99)
[2020-02-26] MEDS: VANCOMYCIN 1,250 MG in SODIUM CHLORIDE 0.9% 250 ML IVPB SCH ×3 (06:11→22:11)
[2020-02-26 07:05] LABS: African American GFR (CKD) >90 (>60 ml/min/1.73 sqM); Anion Gap 9 mmol/L; Basophils % (A) 0 %; Blood Urea Nitrogen 12 mg/dL (9-20); Calcium 8.7 mg/dL (8.4-10.2); Carbon Dioxide 24 mmol/L (22-30); Chloride 106 mmol/L (98-107); Eosinophils # (A) 0.2 k/uL (0-0.7); Eosinophils % (A) 2 %; Glucose 113 mg/dL (74-99); HCT 33.9 % (39.0-53.0); HGB 10.6 gm/dL (13.0-17.5); Hypochromasia Slight; Lymphocytes # (A) 1.2 k/uL (1.0-4.8); Lymphocytes % (A) 10 %; MCH 30.2 pg (25.0-35.0); MCHC 31.3 g/dL (31.0-37.0); MCV 96.5 fL (80.0-100.0); Mean Platelet Volume 9.5; Monocytes # (A) 0.9 k/uL (0-1.0); Monocytes % (A) 8 %; Neutrophils # (A) 8.5 k/uL (1.3-7.7); Neutrophils % (A) 77 %; Non-African American GFR(CKD) >90 (>60 ml/min/1.73 sqM); Platelet Count 246 k/uL (150-450); Potassium 3.5 mmol/L (3.5-5.1); RBC 3.51 m/uL (4.30-5.90); Sodium 139 mmol/L (137-145); WBC 11.2 k/uL (3.8-10.6)
[2020-02-26] MEDS: CEFEPIME 2 GM in SODIUM CHLORIDE 0.9% 100 ML IVPB SCH ×2 (08:36→20:17)
[2020-02-26] MEDS: FAMOTIDINE 20 MG TAB PO SCH (08:37)
[2020-02-26] MEDS: DILTIAZEM ORAL 60 MG TAB PO SCH ×3 (08:37→20:14)
[2020-02-26] MEDS: THIAMINE 100 MG TAB PO SCH (08:37)
[2020-02-26] MEDS: METOPROLOL TARTRATE 50 MG TAB PO SCH ×2 (08:37→20:14)
[2020-02-26] MEDS: NICOTINE 14MG/24HR PATCH TRANSDERM SCH (08:37)
[2020-02-26] MEDS: QUEtiapine 50 MG TAB PO SCH ×2 (08:37→20:14)
[2020-02-26] MEDS: APIXABAN 5 MG TAB PO SCH ×2 (08:37→20:14)
[2020-02-26] MEDS: ATORVASTATIN 20 MG TAB PO SCH (08:38)
[2020-02-26] MEDS: SERTRALINE 50 MG TAB PO SCH (08:38)
[2020-02-26] MEDS: LEVOFLOXACIN 750MG-D5W PMX 750 MG in DEXTROSE/WATER 1 150ML.BAG IVPB SCH (08:42)
[2020-02-26] MEDS: IPRATROPIUM-ALBUTEROL 3 ML NEB INHALATION SCH ×4 (08:43→20:14)
[2020-02-26] MEDS: FORMOTEROL FUMARATE 20 MCG/2 ML NEBU INHALATION SCH ×2 (08:43→20:14)
[2020-02-26 09:22] LABS: Anisocytosis (M) Present
--- NOTE | 2020-02-26 11:15 | P.PN ---
Subjective Progress Note Date: 02/26/20 Principal diagnosis: Tracheobronchitis In follow-up today patient is resting well, breathing is improved from admit, less labored, no c/o r/t PEG tube Objective - Vital Signs Vital signs: Vital Signs Temp 98.4 F 02/26/20 08:00 Pulse 88 02/26/20 09:12 Resp 16 02/26/20 08:00 BP 146/86 02/26/20 08:00 Pulse Ox 96 02/26/20 08:00 Intake & Output 02/25/20 02/26/20 02/26/20 18:59 06:59 18:59 Intake Total 560 1140 Output Total 1326 Balance -766 1140 Weight 133.5 kg 70 kg Intake: Oral 300 Tube Feeding 560 840 Output: Urine 1325 Stool 1 Other: Voiding Method Urinal Urinal Urinal # Voids 1 2 4 # Bowel Movements 1 2 - Constitutional General appearance: Present: cooperative, no acute distress, thin - Respiratory Respiratory: bilateral: rhonchi (less intense) - Cardiovascular Heart sounds: normal: S1, S2 Abnormal Heart Sounds: Absent: systolic murmur, diastolic murmur, rub, S3 Gallop, S4 Gallop, click, other - Peripheral edema leg Peripheral Edema: bilateral: None - Gastrointestinal General gastrointestinal: Present: normal bowel sounds, soft - Labs CBC & Chem 7: 02/26/20 05:28 02/26/20 05:28 Labs: Abnormal Lab Results - Last 24 Hours (Table) 02/25/20 02/25/20 02/26/20 Range/Units 12:00 18:43 01:42 WBC (3.8-10.6) k/uL RBC (4.30-5.90) m/uL Hgb (13.0-17.5) gm/dL Hct (39.0-53.0) % Neutrophils # (1.3-7.7) k/uL Glucose (74-99) mg/dL POC Glucose (mg/dL) 160 H 138 H 168 H (75-99) mg/dL 02/26/20 02/26/20 02/26/20 Range/Units 05:28 05:28 06:06 WBC 11.2 H (3.8-10.6) k/uL RBC 3.51 L (4.30-5.90) m/uL Hgb 10.6 L (13.0-17.5) gm/dL Hct 33.9 L (39.0-53.0) % Neutrophils # 8.5 H (1.3-7.7) k/uL Glucose 113 H (74-99) mg/dL POC Glucose (mg/dL) 136 H (75-99) mg/dL Microbiology - Last 24 Hours (Table) 02/25/20 11:40 Gram Stain - Preliminary Sputum Sputum Culture - Preliminary - Imaging and Cardiology swallow eval report report Assessment and Plan (1) Tracheobronchitis Narrative/Plan: Patient treated for the same. 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 Plan was to begin treatment with weekly cisplatin and concurrent radiation yesterday, delayed until current condition is treated and pt is improved. Current Visit: Yes Status: Acute Priority: High Code(s): C32.0 - MALIGNANT NEOPLASM OF GLOTTIS SNOMED Code(s): 777589630
[2020-02-26 11:50] LABS: Glucose,Whole Blood 129 mg/dL (75-99)
--- NOTE | 2020-02-26 13:02 | CDI ---
Documentation Clarification Form Date: 02/26/2020 12:27:21 PM From: Petra Drummond RN CCDS Admit Date: 02/21/2020 01:00:00 AM Patient Name: Chris Laurent Visit Number: [id number] Discharge Date: ATTENTION: The Clinical Documentation Specialists (CDI) and [facility] Coding Staff appreciate your assistance in clarifying documentation. Please respond to the clarification below the line at the bottom and electronically sign. The CDI & [facility] Coding staff will review the response and follow-up if needed. Please note: Queries are made part of the Legal Health Record. If you have any questions, please contact the author of this message via ITS. Dr. Pam Chang MD Conflicting documentation has been found in the medical record: 02/20 ID Consult and progress notes 02/21 thru 02/24 Pneumonia 02/20 H&P and progress notes 02/21 thru 02/24 Tracheobronchitis History/Risk Factors: 64-year-old male presents to the ED with shortness of breath, generalized weakness. Medical History of laryngeal cancer, COPD, HTN, tracheostomy, peg tube and wounds on bilateral lower extremities. Clinical Indicators: VSS 02/20: 154/71 80 98.7 16 91% ra CXR 02/20: Clearing of left basilar pneumonia Labs 02/20 Wbc 12.1, Neutrophils 9.8, Lactic Acid 0.8, CRP 85.0, Procalcitonin 0.10 Sputum Culture 02/20: Staphylococcus aureus Serratia marcescens ID progress note 02/24: Patient admitted to the hospital with increasing shortness of breath with concern for pneumonia, mostly on the right side. Sputum has been MSSA and Serratia Marcescens. Internal Medicine progress notes 02/23 & 02/24 Acute hypoxic respiratory failure due to acute tracheobronchitis Sputum culture is positive for staph aureus and Serratia. Treatment: 02/20 Zosyn Ivpb q 8Hrs d/c 02/23, 03/04 Levaquin Ivpb Daily, 02/24 Vancomycin Ivpb Q 24hr, Cefepime ivpb Q 12hrs. In your opinion, what is the most clinically appropriate diagnosis for this patient? Acute Tracheobronchitis Acute Pneumonia Other explanation of clinical findings Unable to determine (no explanation for clinical findings) (Last Revision: January 2018) Acute Tracheobronchitis Possible Pneumonia MTDD
--- NOTE | 2020-02-26 13:15 | CDI ---
Documentation Clarification Form Date: 02/26/2020 01:02:57 PM From: Petra Drummond RN CCDS Admit Date: 02/21/2020 01:00:00 AM Patient Name: Chris Laurent Visit Number: [id number] Discharge Date: ATTENTION: The Clinical Documentation Specialists (CDI) and [facility] Coding Staff appreciate your assistance in clarifying documentation. Please respond to the clarification below the line at the bottom and electronically sign. The CDI & [facility] Coding staff will review the response and follow-up if needed. Please note: Queries are made part of the Legal Health Record. If you have any questions, please contact the author of this message via ITS. Dr. Pam Chang MD The diagnosis Sepsis was documented in the H&P 02/20 and progress note 02/21 but is not noted in subsequent documentation. History/Risk Factors: 64-year-old male presents to the ED with shortness of breath, generalized weakness. Medical History of laryngeal cancer, COPD, HTN, tracheostomy, peg tube, and wounds on bilateral lower extremities. Clinical Indicators: H&P 02/20: Atrial fibrillation is probably precipitated by either sepsis or dehydration VSS 02/20: 154/71 80 98.7 16 91% ra CXR 02/20: Clearing of left basilar pneumonia Sputum Culture 02/20: Staphylococcus aureus Serratia marcescens Labs 02/20 Wbc 12.1, Neutrophils 9.8, Lactic Acid 0.8, CRP 85.0, Procalcitonin 0.10 Treatment: 02/20 0.9ns 100cc/Hr changed 02/22 40cc/Hr d/c 02/24, Zosyn Ivpb Q8Hr, 02/23 Cefepime Ivpb Q12Hr, Levaquin Ivpb Q24H, 02/24 Vancomycin Ivpb Q8Hr Please clarify if the Sepsis was Present/active this admission Treated and resolved this admission Ruled out Other, please specify Clinically unable to determine (Last Query Form Revision: June 2019) Ruled out MTDD
--- NOTE | 2020-02-26 14:37 | P.PN ---
Subjective Progress Note Date: 02/26/20 Principal diagnosis: MSSA and Serratia related pneumonia, A. 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 Patient also had a PEG tube placed for nutritional support. Patient had a prolonged hospitalization back in December during which left vocal cord squamous cell carcinoma was diagnosed. His staging CTs did not reveal metastatic disease , PET scan on 02/05/2020 showed uptake only in the left laryngeal mass with max SUV of 12.5. Patient was discharged to [facility] following his hospitalization, and was discharged home sometime in mid January. He was due to start chemoradiation this coming Tuesday on 02/25/2020. However patient developed progressive cough, purulent sputum production, increasing shortness of breath, and chills, he was taken to the hospital to [facility]. Patient also was found to be in atrial fibrillation with RVR. He had symptoms of increased weakness and fatigue. COVID 19 was ruled out. Chest x-ray showed clearing of the left basilar pneumonia and no new focal consolidation. Labs showed a white blood cell, 12.1, hemoglobin of 15.5, sodium of 141, potassium is 3.7, chloride is 110, CO2 is 23, BUN 16 creatinine 0.79, pro calcitonin was low at 0.10, patient is covered with Zosyn for empiric antibiotic coverage, he was fluid resuscitated, he is awake and alert, dentition is appropriate, he is on trach collar at 6 L/m, and his pulse ox is 94%, afebrile, large amount of thick secretions is being suctioned out of his trach, and preliminary sputum Gram stain showed moderate epithelial cells, few gram-positive cocci, few gram- positive bacilli and rare gram-negative bacilli The patient is seen today 02/23/2020 in follow-up on the selective care unit. He is currently sitting up in a chair at the bedside. Awake and alert in no acute distress. He is maintaining good O2 saturations in the 90s on 35% trach collar. He's been afebrile. Hemodynamically stable. Sputum culture is positive for presumptive staph aureus/gram-negative bacilli. White count 13.1. Hemoglobin 10.2. Sodium 141. Potassium 3.2. Creatinine 0.79. He is currently on Zosyn. The patient is seen today 02/24/2020 in follow-up on the selective care unit. He is currently sitting up in bed. Awake and alert in no acute distress. Denies any worsening shortness of breath. He is maintaining O2 saturations in the 90s on 35% trach collar. He is afebrile. Sputum culture is positive for Staphylococcus aureus and Serratia marcescens. He is currently on Zosyn and Zyvox. White count 10.5. Hemoglobin 10.9. Creatinine 0.73. He remains on bronchodilators. Anticoagulated with Eliquis. NicoDerm patch in place. On 02/25/2020 a.m. seeing this patient in follow-up. Medical floor. The patient is having significant amount of rest or secretions in his quite congested cough noted considerable amount of mucus. He is previous cultures of shown a combination of MSSA and Serratia and the patient was given accommodation Zosyn and Levaquin. Nevertheless, the follow-up chest exit was obtained this morning shows increasing infiltration of the right lung and a small right-sided pleural effusion also developed on the right side. There is mild patchy density in the left medial left lung base as well. Based on all this, an antibiotic change will be needed. He is afebrile. He underwent a swallow evaluation today and the modified barium swallow showed normal swallowing with thin liquids and pudding thick consistency and there was no evidence of any aspiration or penetration during the examination. His white cell count is at 10.5. The rest of the electrodes are all within normal limits. On 02/26/2020 patient is seen in follow-up on selective care unit, patient is on cefepime and Levaquin for evidence of MSSA and Serratia marcescens, and we requested another sputum culture to be sent yesterday in view of patient's worsening chest x-ray results and continued copious secretions out of his trache ostomy. Patient is seen in follow-up today, she is resting in bed, he seems to be feeling down, he is not talking much, she remains on 6 L per trach collar, his pulse ox is 96%, he is afebrile, still having moderate to large amount of tracheal secretions. He is receiving nutrition via his PEG tube. Apparently patient had a modified barium swallow yesterday on 02/25/2020 which showed essentially normal swallowing with thin liquids and pudding thick consistency, without evidence of aspiration or penetration. Patient seems to be very depressed, and he has made comments indicating suicidal ideation, for that reason senior safety support manager was placed at the bedside and psychiatric services were consulted and patient was started on Zoloft. Objective - Vital Signs Vital signs: Vital Signs Temp 97.9 F 02/26/20 12:00 Pulse 88 02/26/20 12:54 Resp 16 02/26/20 12:00 BP 125/62 02/26/20 12:00 Pulse Ox 96 02/26/20 12:00 Intake & Output 02/25/20 02/26/20 02/26/20 18:59 06:59 18:59 Intake Total 560 1140 Output Total 1326 Balance -766 1140 Weight 133.5 kg 70 kg Intake: Oral 300 Tube Feeding 560 840 Output: Urine 1325 Stool 1 Other: Voiding Method Urinal Urinal Urinal # Voids 1 2 4 # Bowel Movements 1 2 - Exam GENERAL EXAM: Alert, very withdrawn, 64-year-old male patient, on trach collar, 35% FiO2, comfortable in no apparent distress. HEAD: Normocephalic/atraumatic. EYES: Normal reaction of pupils, equal size. Conjunctiva pink, sclera white. NOSE: Clear with pink turbinates. THROAT: No erythema or exudates. NECK: No masses, no JVD, no thyroid enlargement, no adenopathy. Midline tracheostomy CHEST: No chest wall deformity. Symmetrical expansion. LUNGS: Equal air entry with some scattered rhonchi, but no wheeze, dullness. CVS: Regular rate and rhythm, normal S1 and S2, no gallops, no murmurs, no rubs ABDOMEN: Soft, nontender. No hepatosplenomegaly, normal bowel sounds, no guarding or rigidity. PEG tube present, with tube feedings infusing EXTREMITIES: No clubbing, no edema, no cyanosis, 2+ pulses and upper and lower extremities. MUSCULOSKELETAL: Muscle strength and tone normal. SPINE: No scoliosis or deformity SKIN: No rashes CENTRAL NERVOUS SYSTEM: No focal deficits, tone is normal in all 4 extremities. PSYCHIATRIC: Alert and oriented -3. Appropriate affect. Intact judgment and insight. - Labs CBC & Chem 7: 02/26/20 05:28 02/26/20 05:28 Labs: Abnormal Lab Results - Last 24 Hours (Table) 02/25/20 02/26/20 02/26/20 Range/Units 18:43 01:42 05:28 WBC (3.8-10.6) k/uL RBC (4.30-5.90) m/uL Hgb (13.0-17.5) gm/dL Hct (39.0-53.0) % Neutrophils # (1.3-7.7) k/uL Glucose 113 H (74-99) mg/dL POC Glucose (mg/dL) 138 H 168 H (75-99) mg/dL 02/26/20 02/26/20 02/26/20 Range/Units 05:28 06:06 11:47 WBC 11.2 H (3.8-10.6) k/uL RBC 3.51 L (4.30-5.90) m/uL Hgb 10.6 L (13.0-17.5) gm/dL Hct 33.9 L (39.0-53.0) % Neutrophils # 8.5 H (1.3-7.7) k/uL Glucose (74-99) mg/dL POC Glucose (mg/dL) 136 H 129 H (75-99) mg/dL Microbiology - Last 24 Hours (Table) 02/25/20 11:40 Gram Stain - Preliminary Sputum Sputum Culture - Preliminary Assessment and Plan Plan: #1. Acute hypoxic respiratory failure related to methicillin sensitive staph aureus and Serratia marcescens, nevertheless, there is worsening of the right lung infiltrate and today's chest x-ray and there is also development of a small right-sided pleural effusion addition to increase rest or secretions on examination. The patient started off with symptoms of tracheal bronchitis and initial chest x-ray was clear and subsequently developed extensive infiltration of the right lung. He was on a, initial Zosyn and Levaquin and vancomycin #2. Weakness, dehydration, increased phlegm production, cough, related to the above #3. New onset atrial fibrillation with rapid ventricular response on presentation, currently better controlled, possibly related to dehydration and sepsis #4. 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 Patient is due to start treatment on Tuesday on 02/25/2020 with hemotherapy and radiation #5. Previous history of EtOH abuse #6. History of right lower extremity DVT in 2018, patient is not a candidate fo r chronic anticoagulation, he is status post IVC filter placement #7. Underlying COPD #8. Ex-smoker #9. Depression, suicidal ideation Plan: Continue with current medical management, continue with a combination of Zosyn, Levaquin and vancomycin, awaiting results of the repeat sputum culture, continue nutritional support. Brain treatments, and suctioning as needed. We'll obtain follow-up chest x-ray in the morning. Will continue to follow I performed a history & physical examination of the patient and discussed their management with my nurse practitioner, Marifer Hernández. I reviewed the nurse practitioner's note and agree with the documented findings and plan of care. Lung sounds are positive for diminished breath sounds, scattered rhonchi throughout the lung mcg[place]. The findings and the impression was discussed with the patient. I attest to the documentation by the nurse practitioner. Time with Patient: Less than 30
--- NOTE | 2020-02-26 16:54 | PN ---
PROGRESS NOTE DATE OF SERVICE: 02/26/2020 REASON FOR FOLLOWUP: Pneumonia. INTERVAL HISTORY: The patient is currently afebrile. He is breathing about the same. No chest pain. Cough is about the same and no worsening sputum production. No abdominal pain, no diarrhea. PHYSICAL EXAMINATION: Blood pressure is 125/62 with a pulse of 96, temperature is 97.9. He is 96% on trach collar. General description is an elderly male, up in the bed in no distress. RESPIRATORY SYSTEM: Unlabored breathing, coarse breath sounds bilaterally. HEART: S1, S2. Regular rate and rhythm. ABDOMEN: Soft, no tenderness. Right heel wound did show wound with some slough, but no surrounding redness. LABS: Hemoglobin is 10.2, white count 11.2, creatinine 0.77. DIAGNOSTIC IMPRESSION AND PLAN: Patient admitted to the hospital with shortness of breath with concern for pneumonia, right-sided sputum has been for cefepime 2 grams q.12 hours to continue for a total of 2 weeks and monitor clinical course closely. MMODL / IJN: [id number] /
[2020-02-26 17:39] LABS: Glucose,Whole Blood 153 mg/dL (75-99)
[2020-02-26] MEDS: SODIUM CHLORIDE 0.9% 1,000 ML IV SCH (20:10)
[2020-02-26] MEDS: MELATONIN 3 MG TABLET PO SCH (20:14)
--- NOTE | 2020-02-26 22:06 | P.PN ---
Subjective Progress Note Date: 02/26/20 Principal diagnosis: Acute hypoxic respiratory failure Mr. Laurent is a 64-year-old male with a past medical history of laryngeal cancer, PE and DVT, status post trach and PEG, hypertension, hyperlipidemia, GERD who was transferred from [facility] for upper airway congestion cough and difficulty in breathing. As the patient was having increased secretions from his trach tube he is currently being treated for acute tracheobronchitis with Zosyn. ID Dr. Rasmussen on board and following the patient. Patient also has new onset atrial fibrillation for which cardiology is following him closely. Patient COVID 19 negative. Chest x-ray was showing clearing of left basilar p neumonia and no new focal consolidations. Patient had multiple changes in antibiotic regimens, nitially he was given Zyvox and Levofloxacin then later changed to Cefepime, Vano along with Levofloxacin. He was also suicidal and so Psychiatry services evaluated him and started him on Zoloft and Melatonin. Patient's sputum culture is positive for Staphylococcus aureus and Serratia. So the patient is placed in isolation. On 02/26/2020 - sitter at bed side as he was having suicidal ideation. He had a CXR done that was worsening , so repeat sputum cultures are obtained.As per discussions with nursing staff, his secretions have been copious and causing discomfort , so ENT consulted. He is on 6 L per trach collar, his pulse ox is 96%, he is afebrile. Patient had a modified barium swallow yesterday on 02/25/2020 which showed normal swallowing with thin liquids and pudding thick consistency, without evidence of aspiration or penetration. Patient is still very depressed, and he was suicidal couple of days back. Active Medications Albuterol Sulfate (Ventolin Nebulized) 2.5 mg INHALATION RT-Q2H PRN PRN Reason: Shortness Of Breath Or Wheezing Albuterol/Ipratropium (Duoneb 0.5 Mg-3 Mg/3 Ml Soln) 3 ml INHALATION RT-QID [facility] Last Admin: 02/26/20 20:14 Dose: 3 ml Documented by: Apixaban (Eliquis) 5 mg PO BID [facility] Last Admin: 02/26/20 20:14 Dose: 5 mg Documented by: Atorvastatin Calcium (Lipitor) 20 mg PO DAILY [facility] Last Admin: 02/26/20 08:38 Dose: 20 mg Documented by: Diltiazem HCl (Cardizem Oral) 60 mg PO TID [facility] Last Admin: 02/26/20 20:14 Dose: 60 mg Documented by: Famotidine (Pepcid) 20 mg PO DAILY [facility] Last Admin: 02/26/20 08:37 Dose: 20 mg Documented by: Formoterol Fumarate (Perforomist) 20 mcg INHALATION RT-BID [facility] Last Admin: 02/26/20 20:14 Dose: 20 mcg Documented by: Sodium Chloride (Saline 0.9%) 1,000 mls @ 40 mls/hr IV .Q24H [facility] Last Admin: 02/26/20 20:10 Dose: 40 mls/hr Documented by: Levofloxacin 750 mg/ IV (Solution) 150 mls @ 100 mls/hr IVPB Q24H [facility] Last Admin: 02/26/20 08:42 Dose: 100 mls/hr Documented by: Cefepime HCl 2 gm/ Sodium (Chloride) 100 mls @ 200 mls/hr IVPB Q12HR [facility] Last Admin: 02/26/20 20:17 Dose: 200 mls/hr Documented by: Vancomycin HCl 1,250 mg/ (Sodium Chloride) 250 mls @ 125 mls/hr IVPB Q8H [facility] Last Admin: 02/26/20 16:11 Dose: 125 mls/hr Documented by: Melatonin (Melatonin) 6 mg PO HS [facility] Last Admin: 02/26/20 20:14 Dose: 6 mg Documented by: Metoprolol Tartrate (Lopressor) 100 mg PO BID [facility] Last Admin: 02/26/20 20:14 Dose: 100 mg Documented by: Miscellaneous Information (Potassium Per Protocol) 1 each MISCELLANE DAILY PRN; Protocol PRN Reason: Per Protocol Nicotine (Habitrol 14mg/24hr Patch) 1 patch TRANSDERM DAILY [facility] Last Admin: 02/26/20 08:37 Dose: 1 patch Documented by: Quetiapine Fumarate (Seroquel) 50 mg PO BID [facility] Last Admin: 02/26/20 20:14 Dose: 50 mg Documented by: Sertraline HCl (Zoloft) 50 mg PO DAILY [facility] Last Admin: 02/26/20 08:38 Dose: 50 mg Documented by: Thiamine HCl (Vitamin B-1) 100 mg PO DAILY@1200 [facility] Last Admin: 02/26/20 08:37 Dose: 100 mg Documented by: Objective - Vital Signs Vital signs: Vital Signs Temp 98.2 F 02/26/20 16:00 Pulse 88 02/26/20 17:08 Resp 16 02/26/20 16:00 BP 122/60 02/26/20 16:00 Pulse Ox 99 02/26/20 16:00 Intake & Output 02/26/20 02/26/20 02/27/20 06:59 18:59 06:59 Intake Total 1140 280 Output Total 1 Balance 1140 279 Weight 70 kg Intake: Oral 300 Tube Feeding 840 280 Output: Stool 1 Other: Voiding Method Urinal Urinal # Voids 2 4 # Bowel Movements 1 2 - Exam PHYSICAL EXAMINATION: GENERAL: The patient is alert and oriented x3, thin built appears , no acute distress HEENT: Pupils are round and equally reacting to light. EOMI. No scleral icterus. Mild pallor. Excoriations of skin around the trach collar CARDIOVASCULAR: S1 and S2 present. No added sounds. PULMONARY: Trache collar in place bilateral rhonchi , decreased air entry into bilateral lung mcgovern. ABDOMEN: Soft, nontender, nondistended, normoactive bowel sounds. PEG tube in place. MUSCULOSKELETAL: No joint swelling or deformity. EXTREMITIES: Mild edema. Right heel ulcer. Left lower extremity bigger in girth than right. NEUROLOGICAL: Gross neurological examination did not reveal any focal deficits PSYCHIATRIC: Depressed - Labs CBC & Chem 7: 02/26/20 05:28 02/26/20 05:28 Labs: Abnormal Lab Results - Last 24 Hours (Table) 02/26/20 02/26/20 02/26/20 Range/Units 01:42 05:28 05:28 WBC 11.2 H (3.8-10.6) k/uL RBC 3.51 L (4.30-5.90) m/uL Hgb 10.6 L (13.0-17.5) gm/dL Hct 33.9 L (39.0-53.0) % Neutrophils # 8.5 H (1.3-7.7) k/uL Glucose 113 H (74-99) mg/dL POC Glucose (mg/dL) 168 H (75-99) mg/dL 02/26/20 02/26/20 02/26/20 Range/Units 06:06 11:47 17:37 WBC (3.8-10.6) k/uL RBC (4.30-5.90) m/uL Hgb (13.0-17.5) gm/dL Hct (39.0-53.0) % Neutrophils # (1.3-7.7) k/uL Glucose (74-99) mg/dL POC Glucose (mg/dL) 136 H 129 H 153 H (75-99) mg/dL Microbiology - Last 24 Hours (Table) 02/25/20 11:40 Gram Stain - Preliminary Sputum Sputum Culture - Preliminary Assessment and Plan Assessment: ASSESSMENT Acute hypoxic respiratory failure due to acute tracheobronchitis Sputum culture is positive for staph aureus and Serratia Suicidal ideation New onset atrial fibrillation with rapid ventricular rate 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 Patient is currently on vancomycin, cefepime and levofloxacin. Patient to be continued on breathing treatments and IV steroids. He is currently on Lopressor 100 mg twice a day and Cardizem 60 mg 3 times a day for rate control . Continue on Eliquis for anticoagulation. As the patient was suicidal, will continue with sitter at the bedside. Consulted ENT for possible Trach collar exchange. Continue with the rest of his current medication regimen. Overall prognosis is guarded. Further recommendations depending on the clinical course.
[2020-02-27 00:20] LABS: Glucose,Whole Blood 150 mg/dL (75-99)
[2020-02-27] MEDS: VANCOMYCIN 1,250 MG in SODIUM CHLORIDE 0.9% 250 ML IVPB SCH ×3 (05:32→23:20)
[2020-02-27 06:30] LABS: Glucose,Whole Blood 127 mg/dL (75-99)
[2020-02-27 06:40] LABS: African American GFR (CKD) >90 (>60 ml/min/1.73 sqM); Non-African American GFR(CKD) >90 (>60 ml/min/1.73 sqM)
--- NOTE | 2020-02-27 07:38 | XR ---
EXAMINATION TYPE: XR chest 1V portable DATE OF EXAM: 02/27/2020 HISTORY: Shortness of breath. COMPARISON: 02/25/2020 TECHNIQUE: Single view of the chest is submitted. FINDINGS: Demonstrated are scattered senescent parenchymal change. Tracheostomy tube is unchanged. Persistent right perihilar and right lower lobe infiltrate with small right-sided pleural effusion. The heart is stable. Hilar and mediastinal structures are within normal limits. Degenerative changes are seen of the dorsal spine. IMPRESSION: 1. Persistent right perihilar and right lower lobe infiltrate with small right-sided pleural effusio n.
[2020-02-27] MEDS: IPRATROPIUM-ALBUTEROL 3 ML NEB INHALATION SCH ×4 (08:24→19:54)
[2020-02-27] MEDS: FORMOTEROL FUMARATE 20 MCG/2 ML NEBU INHALATION SCH ×2 (08:24→19:54)
[2020-02-27] MEDS: NICOTINE 14MG/24HR PATCH TRANSDERM SCH (09:08)
[2020-02-27] MEDS: DILTIAZEM ORAL 60 MG TAB PO SCH ×3 (09:09→21:47)
[2020-02-27] MEDS: ATORVASTATIN 20 MG TAB PO SCH (09:09)
[2020-02-27] MEDS: APIXABAN 5 MG TAB PO SCH ×2 (09:09→21:46)
[2020-02-27] MEDS: METOPROLOL TARTRATE 50 MG TAB PO SCH ×2 (09:09→21:48)
[2020-02-27] MEDS: FAMOTIDINE 20 MG TAB PO SCH (09:09)
[2020-02-27] MEDS: QUEtiapine 50 MG TAB PO SCH ×2 (09:09→21:47)
[2020-02-27] MEDS: SERTRALINE 50 MG TAB PO SCH (09:10)
[2020-02-27] MEDS: CEFEPIME 2 GM in SODIUM CHLORIDE 0.9% 100 ML IVPB SCH ×2 (09:10→21:47)
[2020-02-27 11:56] LABS: Glucose,Whole Blood 101 mg/dL (75-99)
[2020-02-27] MEDS: LEVOFLOXACIN 750MG-D5W PMX 750 MG in DEXTROSE/WATER 1 150ML.BAG IVPB SCH (12:06)
[2020-02-27] MEDS: THIAMINE 100 MG TAB PO SCH (12:06)
--- NOTE | 2020-02-27 13:05 | P.PN ---
Subjective Progress Note Date: 02/27/20 Principal diagnosis: MSSA and Serratia related pneumonia, A. 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 Patient also had a PEG tube placed for nutritional support. Patient had a prolonged hospitalization back in December during which left vocal cord squamous cell carcinoma was diagnosed. His staging CTs did not reveal metastatic disease , PET scan on 02/05/2020 showed uptake only in the left laryngeal mass with max SUV of 12.5. Patient was discharged to [facility] following his hospitalization, and was discharged home sometime in mid January. He was due to start chemoradiation this coming Tuesday on 02/25/2020. However patient developed progressive cough, purulent sputum production, increasing shortness of breath, and chills, he was taken to the hospital to [facility]. Patient also was found to be in atrial fibrillation with RVR. He had symptoms of increased weakness and fatigue. COVID 19 was ruled out. Chest x-ray showed clearing of the left basilar pneumonia and no new focal consolidation. Labs showed a white blood cell, 12.1, hemoglobin of 15.5, sodium of 141, potassium is 3.7, chloride is 110, CO2 is 23, BUN 16 creatinine 0.79, pro calcitonin was low at 0.10, patient is covered with Zosyn for empiric antibiotic coverage, he was fluid resuscitated, he is awake and alert, dentition is appropriate, he is on trach collar at 6 L/m, and his pulse ox is 94%, afebrile, large amount of thick secretions is being suctioned out of his trach, and preliminary sputum Gram stain showed moderate epithelial cells, few gram-positive cocci, few gram- positive bacilli and rare gram-negative bacilli The patient is seen today 02/23/2020 in follow-up on the selective care unit. He is currently sitting up in a chair at the bedside. Awake and alert in no acute distress. He is maintaining good O2 saturations in the 90s on 35% trach collar. He's been afebrile. Hemodynamically stable. Sputum culture is positive for presumptive staph aureus/gram-negative bacilli. White count 13.1. Hemoglobin 10.2. Sodium 141. Potassium 3.2. Creatinine 0.79. He is currently on Zosyn. The patient is seen today 02/24/2020 in follow-up on the selective care unit. He is currently sitting up in bed. Awake and alert in no acute distress. Denies any worsening shortness of breath. He is maintaining O2 saturations in the 90s on 35% trach collar. He is afebrile. Sputum culture is positive for Staphylococcus aureus and Serratia marcescens. He is currently on Zosyn and Zyvox. White count 10.5. Hemoglobin 10.9. Creatinine 0.73. He remains on bronchodilators. Anticoagulated with Eliquis. NicoDerm patch in place. On 02/25/2020 a.m. seeing this patient in follow-up. Medical floor. The patient is having significant amount of rest or secretions in his quite congested cough noted considerable amount of mucus. He is previous cultures of shown a combination of MSSA and Serratia and the patient was given accommodation Zosyn and Levaquin. Nevertheless, the follow-up chest exit was obtained this morning shows increasing infiltration of the right lung and a small right-sided pleural effusion also developed on the right side. There is mild patchy density in the left medial left lung base as well. Based on all this, an antibiotic change will be needed. He is afebrile. He underwent a swallow evaluation today and the modified barium swallow showed normal swallowing with thin liquids and pudding thick consistency and there was no evidence of any aspiration or penetration during the examination. His white cell count is at 10.5. The rest of the electrodes are all within normal limits. On 02/26/2020 patient is seen in follow-up on selective care unit, patient is on cefepime and Levaquin for evidence of MSSA and Serratia marcescens, and we requested another sputum culture to be sent yesterday in view of patient's worsening chest x-ray results and continued copious secretions out of his trache ostomy. Patient is seen in follow-up today, she is resting in bed, he seems to be feeling down, he is not talking much, she remains on 6 L per trach collar, his pulse ox is 96%, he is afebrile, still having moderate to large amount of tracheal secretions. He is receiving nutrition via his PEG tube. Apparently patient had a modified barium swallow yesterday on 02/25/2020 which showed essentially normal swallowing with thin liquids and pudding thick consistency, without evidence of aspiration or penetration. Patient seems to be very depressed, and he has made comments indicating suicidal ideation, for that reason security public safety officer was placed at the bedside and psychiatric services were consulted and patient was started on Zoloft. On 02/27/2020 patient seen in follow-up on [facility] care unit. He is resting in bed with a security public safety officer at the bedside, seems to be very withdrawn, he was started on Zoloft by psychiatric services for depression, and making statements about suicidal ideations. Does not appear to be in any acute distress, he is on the trach collar at FiO2 of 35%, his pulse ox is 95-99%, still significant secretions out of his tracheostomy, he is afebrile, he yesterday we added vancomycin in addition to cefepime and Levaquin, a new sputum culture was sent and did not show any growth, his original sputum culture from 02/21/2020 showed MSSA and Serratia marcescens. ID service is following, lung sounds reveal diffuse rhonchi bilaterally. Patient is receiving tube feedings. Today's chest x-ray has been reviewed showing persistent right perihilar and right lower lobe infiltrate with small right-sided pleural effusion. Objective - Vital Signs Vital signs: Vital Signs Temp 98.4 F 02/27/20 12:00 Pulse 72 02/27/20 12:00 Resp 20 02/27/20 12:00 BP 115/61 02/27/20 12:00 Pulse Ox 99 02/27/20 12:00 Intake & Output 02/26/20 02/27/20 02/27/20 18:59 06:59 18:59 Intake Total 280 1190 280 Output Total 1 1170 Balance 279 20 280 Weight 70 kg 70 kg Intake: Oral 350 Tube Feeding 280 840 280 Output: Urine 1170 Stool 1 Other: Voiding Method Urinal Bedside Commode Bedside Commode Urinal Urinal # Voids 4 1 # Bowel Movements 2 2 1 - Exam GENERAL EXAM: Alert, very withdrawn, 64-year-old male patient, on trach collar, 35% FiO2, with a pulse ox of 99% comfortable in no apparent distress. blacking machine operator is at the bedside for suicidal precautions HEAD: Normocephalic/atraumatic. EYES: Normal reaction of pupils, equal size. Conjunctiva pink, sclera white. NOSE: Clear with pink turbinates. THROAT: No erythema or exudates. NECK: No masses, no JVD, no thyroid enlargement, no adenopathy. Midline tracheostomy CHEST: No chest wall deformity. Symmetrical expansion. LUNGS: Equal air entry with some scattered rhonchi, but no wheeze, dullness. CVS: Regular rate and rhythm, normal S1 and S2, no gallops, no murmurs, no rubs ABDOMEN: Soft, nontender. No hepatosplenomegaly, normal bowel sounds, no guarding or rigidity. PEG tube present, with tube feedings infusing EXTREMITIES: No clubbing, no edema, no cyanosis, 2+ pulses and upper and lower extremities. MUSCULOSKELETAL: Muscle strength and tone normal. SPINE: No scoliosis or deformity SKIN: No rashes CENTRAL NERVOUS SYSTEM: No focal deficits, tone is normal in all 4 extremities. PSYCHIATRIC: Alert and oriented -3. Appropriate affect. Intact judgment and insight. - Labs CBC & Chem 7: 02/26/20 05:28 02/27/20 05:08 Labs: Abnormal Lab Results - Last 24 Hours (Table) 02/26/20 02/27/20 02/27/20 Range/Units 17:37 00:18 06:28 POC Glucose (mg/dL) 153 H 150 H 127 H (75-99) mg/dL 02/27/20 Range/Units 11:54 POC Glucose (mg/dL) 101 H (75-99) mg/dL Microbiology - Last 24 Hours (Table) 02/25/20 11:40 Gram Stain - Final Sputum Sputum Culture - Final Assessment and Plan Plan: #1. Acute hypoxic respiratory failure related to methicillin sensitive staph aureus and Serratia marcescens, nevertheless, there is worsening of the right lung infiltrate and today's chest x-ray and there is also development of a small right-sided pleural effusion addition to increase rest or secretions on examination. The patient started off with symptoms of tracheal bronchitis and initial chest x-ray was clear and subsequently developed extensive infiltration of the right lung. He was on a, initial Zosyn and Levaquin and vancomycin On 02/27/2020 patient continues on FiO2 of 35% per trach collar, still significantly congested, and there is large amount of secretions out of his tracheostomy, another sputum sample was sent yesterday and has shown no growth, remains on combination of cefepime Levaquin and vancomycin #2. Weakness, dehydration, increased phlegm production, cough, related to the above #3. New onset atrial fibrillation with rapid ventricular response on presentation, currently better controlled, possibly related to dehydration and sepsis #4. 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 Patient is due to start treatment on Tuesday on 02/25/2020 with hemotherapy and radiation #5. Previous history of EtOH abuse #6. History of right lower extremity DVT in 2018, patient is not a candidate for chronic anticoagulation, he is status post IVC filter placement #7. Underlying COPD #8. Ex-smoker #9. Depression, suicidal ideation Plan: Continue current antibiotic coverage, and following with ID service recommendations, sputum culture has shown no growth, and original sputum culture did show MSSA and Serratia marcescens, pulmonary toileting, encouraged patient to sit up in the chair, increase activity as tolerated, patient continues to tolerate his tube feedings, does seem to be very withdrawn, and psychiatric services are following. I performed a history & physical examination of the patient and discussed their management with my nurse practitioner, Marifer Hernández. I reviewed the nurse practitioner's note and agree with the documented findings and plan of care. Lung sounds are positive for diminished breath sounds, scattered rhonchi throughout the lung mcgovern. The findings and the impression was discussed with the patient. I attest to the documentation by the nurse practitioner. Time with Patient: Less than 30
--- NOTE | 2020-02-27 13:44 | P.PN ---
Subjective Progress Note Date: 02/27/20 Principal diagnosis: Tracheobronchitis. In follow-up today patient is resting well, more involved in our conversation today, cough is still congested, frustrated with his situation. No pain Objective - Vital Signs Vital signs: Vital Signs Temp 98.4 F 02/27/20 12:00 Pulse 72 02/27/20 12:00 Resp 20 02/27/20 12:00 BP 115/61 02/27/20 12:00 Pulse Ox 99 02/27/20 12:00 Intake & Output 02/26/20 02/27/20 02/27/20 18:59 06:59 18:59 Intake Total 280 1190 280 Output Total 1 1170 Balance 279 20 280 Weight 70 kg 70 kg Intake: Oral 350 Tube Feeding 280 840 280 Output: Urine 1170 Stool 1 Other: Voiding Method Urinal Bedside Commode Bedside Commode Urinal Urinal # Voids 4 1 # Bowel Movements 2 2 1 - Constitutional General appearance: Present: average body habitus, cooperative, no acute distress - EENT Eyes: Present: anicteric sclerae, EOMI ENT: Present: hearing grossly normal - Respiratory Details: Congested cough, thick, whitish sputum from the trach, some scant blood noted Respiratory: bilateral: rhonchi - Cardiovascular Heart sounds: normal: S1, S2 - Gastrointestinal General gastrointestinal: Present: soft - Neurologic Neurologic: Present: CNII-XII intact - Musculoskeletal Musculoskeletal: Present: generalized weakness - Psychiatric Psychiatric Comment(s): Flat affect, depressed mood Psychiatric: Present: A&O x's 3, intact judgment & insight - Labs CBC & Chem 7: 02/26/20 05:28 02/27/20 05:08 Labs: Abnormal Lab Results - Last 24 Hours (Table) 02/26/20 02/27/20 02/27/20 Range/Units 17:37 00:18 06:28 POC Glucose (mg/dL) 153 H 150 H 127 H (75-99) mg/dL 02/27/20 Range/Units 11:54 POC Glucose (mg/dL) 101 H (75-99) mg/dL Microbiology - Last 24 Hours (Table) 02/25/20 11:40 Gram Stain - Final Sputum Sputum Culture - Final - Imaging and Cardiology Chest x-ray: report reviewed Assessment and Plan (1) Tracheobronchitis Narrative/Plan: Patient treated for the same. Chest x-ray showing right lower lobe infiltrate and small pleural effusion. Patient is on treatment, Pulmonary is following Current Visit: Yes Status: Acute Priority: High Code(s): J40 - BRONCHITIS, NOT SPECIFIED ACUTE OR CHRONIC SNOMED Code(s): 73356784 (2) Squamous cell carcinoma of left vocal cord Narrative/Plan: Newly diagnosed. Plan was to begin treatment with weekly cisplatin and concurrent radiation this week, delayed until current condition is treated and pt is improved. Patient understands this plan. 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
[2020-02-27] MEDS ORDERED: METOCLOPRAMIDE 5 MG/ML 2 ML VIAL IVP PRN ×2 (14:40→14:41)
--- NOTE | 2020-02-27 16:56 | PN ---
PROGRESS NOTE DATE OF SERVICE: 02/27/2020 REASON FOR FOLLOWUP: Pneumonia. INTERVAL HISTORY: The patient is currently afebrile. The patient is breathing comfortably. The patient did not provide any history today. No distress or any other changes reported by the sitter at the bedside. PHYSICAL EXAMINATION: Blood pressure 135/70 with a pulse of 92, temperature 98.6. He is 96% on trach collar. General description is an elderly male, lying in bed in no distress. RESPIRATORY SYSTEM: Unlabored breathing. Coarse breath sounds bilaterally, no wheeze. HEART: S1, S2. Regular rate and rhythm. ABDOMEN: Soft. No tenderness. LABS: Hemoglobin 10.8, white count 11.2, creatinine 0.72. DIAGNOSTIC IMPRESSION AND PLAN: Patient with right-sided pneumonia. Sputum has been MSSA and Serratia marcescens. Patient is covered with cefepime 2 g to continue to finish a total of 2 week course of therapy and monitor clinical course closely. MMODL / IJN: [id number] /
[2020-02-27 18:10] LABS: Glucose,Whole Blood 120 mg/dL (75-99)
[2020-02-27] MEDS: SODIUM CHLORIDE 0.9% 1,000 ML IV SCH (21:44)
[2020-02-27] MEDS: MELATONIN 3 MG TABLET PO SCH (21:46)
[2020-02-28 00:56] LABS: Glucose,Whole Blood 121 mg/dL (75-99)
[2020-02-28] MEDS: VANCOMYCIN 1,250 MG in SODIUM CHLORIDE 0.9% 250 ML IVPB SCH ×2 (05:52→18:19)
[2020-02-28 06:30] LABS: Glucose,Whole Blood 109 mg/dL (75-99)
[2020-02-28 07:43] LABS: African American GFR (CKD) >90 (>60 ml/min/1.73 sqM); Non-African American GFR(CKD) >90 (>60 ml/min/1.73 sqM)
[2020-02-28] MEDS: FORMOTEROL FUMARATE 20 MCG/2 ML NEBU INHALATION SCH ×2 (08:11→19:44)
[2020-02-28] MEDS: IPRATROPIUM-ALBUTEROL 3 ML NEB INHALATION SCH ×4 (08:11→19:44)
--- NOTE | 2020-02-28 09:54 | P.PN ---
Subjective Progress Note Date: 02/27/20 Principal diagnosis: Acute hypoxic respiratory failure Mr. Laurent is a 64-year-old male with a past medical history of laryngeal cancer, PE and DVT, status post trach and PEG, hypertension, hyperlipidemia, GERD who was transferred from [facility] for upper airway congestion cough and difficulty in breathing. As the patient was having increased secretions from his trach tube he is currently being treated for acute tracheobronchitis with Zosyn. ID Dr. Rasmussen on board and following the patient. Patient also has new onset atrial fibrillation for which cardiology is following him closely. Patient COVID 19 negative. Chest x-ray was showing clearing of left basilar p neumonia and no new focal consolidations. Patient had multiple changes in antibiotic regimens, nitially he was given Zyvox and Levofloxacin then later changed to Cefepime, Vano along with Levofloxacin. He was also suicidal and so Psychiatry services evaluated him and started him on Zoloft and Melatonin. Patient's sputum culture is positive for Staphylococcus aureus and Serratia. So the patient is placed in isolation. On 02/26/2020 - sitter at bed side as he was having suicidal ideation. He had a CXR done that was worsening , so repeat sputum cultures are obtained.As per discussions with nursing staff, his secretions have been copious and causing discomfort , so ENT consulted. He is on 6 L per trach collar, his pulse ox is 96%, he is afebrile. Patient had a modified barium swallow yesterday on 02/25/2020 which showed normal swallowing with thin liquids and pudding thick consistency, without evidence of aspiration or penetration. Patient is still very depressed, and he was suicidal couple of days back. 02/27/2020 Patient is currently lying in the bedcomfortably. Patient did have nausea and episodes of vomiting this morning. 2 feedings on hold. Patient is currently on trach collar with FiO2 of 30% and pulse ox 95%. Still having some secretions from the tracheostomy tube. Currently being continued on antibiotics. New sputum culture showed no growth so far. ID is following. 2 feedings on hold due to nausea vomiting and monitor residual. Patient is being scheduled for tracheostomy accidents tomorrow. Chest x-ray showed persistent right perihilar and right lower lobeinfiltratewith small right-sided pleural effusion. Pulmonary is following. Active Medications Albuterol Sulfate (Ventolin Nebulized) 2.5 mg INHALATION RT-Q2H PRN PRN Reason: Shortness Of Breath Or Wheezing Albuterol/Ipratropium (Duoneb 0.5 Mg-3 Mg/3 Ml Soln) 3 ml INHALATION RT-QID [facility] Last Admin: 02/26/20 20:14 Dose: 3 ml Documented by: Apixaban (Eliquis) 5 mg PO BID [facility] Last Admin: 02/26/20 20:14 Dose: 5 mg Documented by: Atorvastatin Calcium (Lipitor) 20 mg PO DAILY [facility] Last Admin: 02/26/20 08:38 Dose: 20 mg Documented by: Diltiazem HCl (Cardizem Oral) 60 mg PO TID [facility] Last Admin: 02/26/20 20:14 Dose: 60 mg Documented by: Famotidine (Pepcid) 20 mg PO DAILY [facility] Last Admin: 02/26/20 08:37 Dose: 20 mg Documented by: Formoterol Fumarate (Perforomist) 20 mcg INHALATION RT-BID [facility] Last Admin: 02/26/20 20:14 Dose: 20 mcg Documented by: Sodium Chloride (Saline 0.9%) 1,000 mls @ 40 mls/hr IV .Q24H [facility] Last Admin: 02/26/20 20:10 Dose: 40 mls/hr Documented by: Levofloxacin 750 mg/ IV (Solution) 150 mls @ 100 mls/hr IVPB Q24H [facility] Last Admin: 02/26/20 08:42 Dose: 100 mls/hr Documented by: Cefepime HCl 2 gm/ Sodium (Chloride) 100 mls @ 200 mls/hr IVPB Q12HR [facility] Last Admin: 02/26/20 20:17 Dose: 200 mls/hr Documented by: Vancomycin HCl 1,250 mg/ (Sodium Chloride) 250 mls @ 125 mls/hr IVPB Q8H [facility] Last Admin: 02/26/20 16:11 Dose: 125 mls/hr Documented by: Melatonin (Melatonin) 6 mg PO HS [facility] Last Admin: 02/26/20 20:14 Dose: 6 mg Documented by: Metoprolol Tartrate (Lopressor) 100 mg PO BID [facility] Last Admin: 02/26/20 20:14 Dose: 100 mg Documented by: Miscellaneous Information (Potassium Per Protocol) 1 each MISCELLANE DAILY PRN; Protocol PRN Reason: Per Protocol Nicotine (Habitrol 14mg/24hr Patch) 1 patch TRANSDERM DAILY [facility] Last Admin: 02/26/20 08:37 Dose: 1 patch Documented by: Quetiapine Fumarate (Seroquel) 50 mg PO BID [facility] Last Admin: 02/26/20 20:14 Dose: 50 mg Documented by: Sertraline HCl (Zoloft) 50 mg PO DAILY [facility] Last Admin: 02/26/20 08:38 Dose: 50 mg Documented by: Thiamine HCl (Vitamin B-1) 100 mg PO DAILY@1200 [facility] Last Admin: 02/26/20 08:37 Dose: 100 mg Documented by: Objective - Vital Signs Vital signs: Vital Signs Temp 98.6 F 02/27/20 15:11 Pulse 90 02/27/20 20:18 Resp 20 02/27/20 15:11 BP 135/70 02/27/20 15:11 Pulse Ox 96 02/27/20 15:11 Intake & Output 02/27/20 02/27/20 02/28/20 06:59 18:59 06:59 Intake Total 1190 280 Output Total 1170 300 Balance 20 -20 Weight 70 kg 70 kg Intake: Oral 350 Tube Feeding 840 280 Output: Urine 1170 300 Other: Voiding Method Bedside Commode Bedside Commode Urinal Urinal # Voids 1 1 # Bowel Movements 2 1 1 - Exam PHYSICAL EXAMINATION: GENERAL: The patient is alert and oriented x3, thin built appears , no acute distress HEENT: Pupils are round and equally reacting to light. EOMI. No scleral icterus. Mild pallor. Excoriations of skin around the trach collar CARDIOVASCULAR: S1 and S2 present. No added sounds. PULMONARY: Trache collar in place bilateral rhonchi , decreased air entry into bilateral lung mcgovern. ABDOMEN: Soft, nontender, nondistended, normoactive bowel sounds. PEG tube in place. MUSCULOSKELETAL: No joint swelling or deformity. EXTREMITIES: Mild edema. Right heel ulcer. Left lower extremity bigger in girth than right. NEUROLOGICAL: Gross neurological examination did not reveal any focal deficits PSYCHIATRIC: Depressed - Labs CBC & Chem 7: 02/26/20 05:28 02/28/20 06:43 Labs: Abnormal Lab Results - Last 24 Hours (Table) 02/27/20 02/27/20 02/27/20 Range/Units 00:18 06:28 11:54 POC Glucose (mg/dL) 150 H 127 H 101 H (75-99) mg/dL 02/27/20 Range/Units 18:09 POC Glucose (mg/dL) 120 H (75-99) mg/dL Microbiology - Last 24 Hours (Table) 02/25/20 11:40 Gram Stain - Final Sputum Sputum Culture - Final Assessment and Plan Assessment: ASSESSMENT Acute hypoxic respiratory failure due to acute tracheobronchitis Sputum culture is positive for staph aureus and Serratia Suicidal ideation New onset atrial fibrillation with rapid ventricular rate 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 repeat sputumcultures showed no growth so far. Patient is currently on vancomycin, cefepime and levofloxacin. Patient to be continued on breathing treatments and IV steroids. He is currently on Lopressor 100 mg twice a day and Cardizem 60 mg 3 times a day for rate control . Continue on Eliquis for anticoagulation. As the patient was suicidal, will continue with sitter at the bedside. Consulted ENT for possible Trach collar exchange.plan for tracheostomy x-rays tomorrow.tube feedings on hold due to nausea and vomiting. We will consider restarting. Continue with the rest of his current medication regimen. Overall prognosis is guarded. Further recommendations depending on the clinical course. Time with Patient: Greater than 30
[2020-02-28] MEDS: DILTIAZEM ORAL 60 MG TAB PO SCH ×3 (10:40→20:51)
[2020-02-28] MEDS: FAMOTIDINE 20 MG TAB PO SCH (10:41)
[2020-02-28] MEDS: CEFEPIME 2 GM in SODIUM CHLORIDE 0.9% 100 ML IVPB SCH ×2 (10:41→20:51)
[2020-02-28] MEDS: ATORVASTATIN 20 MG TAB PO SCH (10:41)
[2020-02-28] MEDS: SERTRALINE 50 MG TAB PO SCH (10:41)
[2020-02-28] MEDS: APIXABAN 5 MG TAB PO SCH ×2 (10:41→20:50)
[2020-02-28] MEDS: QUEtiapine 50 MG TAB PO SCH ×2 (10:41→20:50)
[2020-02-28] MEDS: NICOTINE 14MG/24HR PATCH TRANSDERM SCH (10:41)
[2020-02-28] MEDS: METOPROLOL TARTRATE 50 MG TAB PO SCH ×2 (10:41→20:50)
[2020-02-28] MEDS: THIAMINE 100 MG TAB PO SCH (10:41)
[2020-02-28] MEDS: LEVOFLOXACIN 750MG-D5W PMX 750 MG in DEXTROSE/WATER 1 150ML.BAG IVPB SCH (10:45)
[2020-02-28 11:53] LABS: Glucose,Whole Blood 181 mg/dL (75-99)
--- NOTE | 2020-02-28 12:11 | P.PN ---
Subjective Progress Note Date: 02/28/20 Principal diagnosis: MSSA and Serratia related pneumonia, A. 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 Patient also had a PEG tube placed for nutritional support. Patient had a prolonged hospitalization back in December during which left vocal cord squamous cell carcinoma was diagnosed. His staging CTs did not reveal metastatic disease , PET scan on 02/05/2020 showed uptake only in the left laryngeal mass with max SUV of 12.5. Patient was discharged to [facility] following his hospitalization, and was discharged home sometime in mid January. He was due to start chemoradiation this coming Tuesday on 02/25/2020. However patient developed progressive cough, purulent sputum production, increasing shortness of breath, and chills, he was taken to the hospital to [facility]. Patient also was found to be in atrial fibrillation with RVR. He had symptoms of increased weakness and fatigue. COVID 19 was ruled out. Chest x-ray showed clearing of the left basilar pneumonia and no new focal consolidation. Labs showed a white blood cell, 12.1, hemoglobin of 15.5, sodium of 141, potassium is 3.7, chloride is 110, CO2 is 23, BUN 16 creatinine 0.79, pro calcitonin was low at 0.10, patient is covered with Zosyn for empiric antibiotic coverage, he was fluid resuscitated, he is awake and alert, dentition is appropriate, he is on trach collar at 6 L/m, and his pulse ox is 94%, afebrile, large amount of thick secretions is being suctioned out of his trach, and preliminary sputum Gram stain showed moderate epithelial cells, few gram-positive cocci, few gram- positive bacilli and rare gram-negative bacilli The patient is seen today 02/23/2020 in follow-up on the selective care unit. He is currently sitting up in a chair at the bedside. Awake and alert in no acute distress. He is maintaining good O2 saturations in the 90s on 35% trach collar. He's been afebrile. Hemodynamically stable. Sputum culture is positive for presumptive staph aureus/gram-negative bacilli. White count 13.1. Hemoglobin 10.2. Sodium 141. Potassium 3.2. Creatinine 0.79. He is currently on Zosyn. The patient is seen today 02/24/2020 in follow-up on the selective care unit. He is currently sitting up in bed. Awake and alert in no acute distress. Denies any worsening shortness of breath. He is maintaining O2 saturations in the 90s on 35% trach collar. He is afebrile. Sputum culture is positive for Staphylococcus aureus and Serratia marcescens. He is currently on Zosyn and Zyvox. White count 10.5. Hemoglobin 10.9. Creatinine 0.73. He remains on bronchodilators. Anticoagulated with Eliquis. NicoDerm patch in place. On 02/25/2020 a.m. seeing this patient in follow-up. Medical floor. The patient is having significant amount of rest or secretions in his quite congested cough noted considerable amount of mucus. He is previous cultures of shown a combination of MSSA and Serratia and the patient was given accommodation Zosyn and Levaquin. Nevertheless, the follow-up chest exit was obtained this morning shows increasing infiltration of the right lung and a small right-sided pleural effusion also developed on the right side. There is mild patchy density in the left medial left lung base as well. Based on all this, an antibiotic change will be needed. He is afebrile. He underwent a swallow evaluation today and the modified barium swallow showed normal swallowing with thin liquids and pudding thick consistency and there was no evidence of any aspiration or penetration during the examination. His white cell count is at 10.5. The rest of the electrodes are all within normal limits. On 02/26/2020 patient is seen in follow-up on selective care unit, patient is on cefepime and Levaquin for evidence of MSSA and Serratia marcescens, and we requested another sputum culture to be sent yesterday in view of patient's worsening chest x-ray results and continued copious secretions out of his trache ostomy. Patient is seen in follow-up today, she is resting in bed, he seems to be feeling down, he is not talking much, she remains on 6 L per trach collar, his pulse ox is 96%, he is afebrile, still having moderate to large amount of tracheal secretions. He is receiving nutrition via his PEG tube. Apparently patient had a modified barium swallow yesterday on 02/25/2020 which showed essentially normal swallowing with thin liquids and pudding thick consistency, without evidence of aspiration or penetration. Patient seems to be very depressed, and he has made comments indicating suicidal ideation, for that reason director of public safety was placed at the bedside and psychiatric services were consulted and patient was started on Zoloft. On 02/27/2020 patient seen in follow-up on selective care unit. He is resting in bed with a director of public safety at the bedside, seems to be very withdrawn, he was started on Zoloft by psychiatric services for depression, and making statements about suicidal ideations. Does not appear to be in any acute distress, he is on the trach collar at FiO2 of 35%, his pulse ox is 95-99%, still significant secretions out of his tracheostomy, he is afebrile, he yesterday we added vancomycin in addition to cefepime and Levaquin, a new sputum culture was sent and did not show any growth, his original sputum culture from 02/21/2020 showed MSSA and Serratia marcescens. ID service is following, lung sounds reveal diffuse rhonchi bilaterally. Patient is receiving tube feedings. Today's chest x-ray has been reviewed showing persistent right perihilar and right lower lobe infiltrate with small right-sided pleural effusion. On 02/28/2020 patient seen in follow-up on selective care unit, is awake and alert, oriented 3, he is given some simple answers to distress, seems to be talking a little bit more on today's exam. Denies any acute distress, still seems to be quite congested, rhonchorous, producing yellow to baker colored phlegm, he remains on accommodation cefepime, Levaquin and vancomycin, repeat sputum culture has shown no growth. Patient's right heel ulcer has been cultured, wound cultures are pending. No fever or chills, he is on the trach collar with FiO2 of 35%, he has been started on Zoloft for depression, and a director of public safety remains at the bedside. We will repeat chest x-ray tomorrow. Objective - Vital Signs Vital signs: Vital Signs Temp 98.9 F 02/28/20 08:00 Pulse 88 02/28/20 11:58 Resp 20 02/28/20 04:00 BP 173/81 02/28/20 08:00 Pulse Ox 95 02/28/20 08:00 Intake & Output 02/27/20 02/28/20 02/28/20 18:59 06:59 18:59 Intake Total 280 0 0 Output Total 300 Balance -20 0 0 Weight 70 kg 70 kg Intake: Tube Feeding 280 0 0 Output: Urine 300 Other: Voiding Method Bedside Commode Bedside Commode Urinal Urinal # Voids 1 5 # Bowel Movements 1 1 - Exam GENERAL EXAM: Alert, very withdrawn, 64-year-old male patient, on trach collar, 35% FiO2, with a pulse ox of 99% comfortable in no apparent distress. animal impersonator is at the bedside for suicidal precautions HEAD: Normocephalic/atraumatic. EYES: Normal reaction of pupils, equal size. Conjunctiva pink, sclera white. NOSE: Clear with pink turbinates. THROAT: No erythema or exudates. NECK: No masses, no JVD, no thyroid enlargement, no adenopathy. Midline tracheostomy CHEST: No chest wall deformity. Symmetrical expansion. LUNGS: Equal air entry with some scattered rhonchi, but no wheeze, dullness. CVS: Regular rate and rhythm, normal S1 and S2, no gallops, no murmurs, no rubs ABDOMEN: Soft, nontender. No hepatosplenomegaly, normal bowel sounds, no guarding or rigidity. PEG tube present, with tube feedings infusing EXTREMITIES: No clubbing, no edema, no cyanosis, 2+ pulses and upper and lower extremities. MUSCULOSKELETAL: Muscle strength and tone normal. SPINE: No scoliosis or deformity SKIN: No rashes CENTRAL NERVOUS SYSTEM: No focal deficits, tone is normal in all 4 extremities. PSYCHIATRIC: Alert and oriented -3. Appropriate affect. Intact judgment and insight. - Labs CBC & Chem 7: 02/26/20 05:28 02/28/20 06:43 Labs: Abnormal Lab Results - Last 24 Hours (Table) 02/27/20 02/28/20 02/28/20 Range/Units 18:09 00:44 06:29 POC Glucose (mg/dL) 120 H 121 H 109 H (75-99) mg/dL 02/28/20 Range/Units 11:52 POC Glucose (mg/dL) 181 H (75-99) mg/dL Microbiology - Last 24 Hours (Table) 02/27/20 22:20 Gram Stain - Preliminary Foot - Right Wound Culture - Preliminary 02/27/20 22:20 Anaerobic Culture - Preliminary Heel - Right 02/25/20 11:40 Gram Stain - Final Sputum Sputum Culture - Final Assessment and Plan Plan: #1. Acute hypoxic respiratory failure related to methicillin sensitive staph au reus and Serratia marcescens, nevertheless, there is worsening of the right lung infiltrate and today's chest x-ray and there is also development of a small right-sided pleural effusion addition to increase rest or secretions on examination. The patient started off with symptoms of tracheal bronchitis and initial chest x-ray was clear and subsequently developed extensive infiltration of the right lung. He was on a, initial Zosyn and Levaquin and vancomycin On 02/27/2020 patient continues on FiO2 of 35% per trach collar, still significantly congested, and there is large amount of secretions out of his tracheostomy, another sputum sample was sent yesterday and has shown no growth, remains on combination of cefepime Levaquin and vancomycin #2. Weakness, dehydration, increased phlegm production, cough, related to the above #3. New onset atrial fibrillation with rapid ventricular response on presentation, currently better controlled, possibly related to dehydration and sepsis #4. 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 Patient is due to start treatment on Tuesday on 02/25/2020 with hemotherapy and radiation #5. Previous history of EtOH abuse #6. History of right lower extremity DVT in 2018, patient is not a candidate for chronic anticoagulation, he is status post IVC filter placement #7. Underlying COPD #8. Ex-smoker #9. Depression, suicidal ideation Plan: Continue current antibiotic coverage, ID service is following, no fever or chills. Patient is tolerating tube feedings, we'll obtain follow-up chest x-ray tomorrow. We'll continue to follow, tracheal suction as needed. I performed a history & physical examination of the patient and discussed their management with my nurse practitioner, Marifer Hernández. I reviewed the nurse practitioner's note and agree with the documented findings and plan of care. Lung sounds are positive for diminished breath sounds, scattered rhonchi throughout the lung mcgovern. The findings and the impression was discussed with the patient. I attest to the documentation by the nurse practitioner. Time with Patient: Less than 30
--- NOTE | 2020-02-28 16:15 | P.PN ---
Subjective Progress Note Date: 02/28/20 Principal diagnosis: Tracheobronchitis. Vocal cord carcinoma In follow-up today patient is resting, has voiced depression, is certainly disappointed in his situation. No fever, nausea, tolerating oral fluids and PEG feeds,no abd pain,bloating. Does not report pain. Objective - Vital Signs Vital signs: Vital Signs Temp 98.9 F 02/28/20 08:00 Pulse 73 02/28/20 12:00 Resp 20 02/28/20 04:00 BP 139/65 02/28/20 12:00 Pulse Ox 96 02/28/20 12:00 Intake & Output 02/27/20 02/28/20 02/28/20 18:59 06:59 18:59 Intake Total 280 0 0 Output Total 300 Balance -20 0 0 Weight 70 kg 70 kg Intake: Tube Feeding 280 0 0 Output: Urine 300 Other: Voiding Method Bedside Commode Bedside Commode Urinal Urinal # Voids 1 5 # Bowel Movements 1 1 - Constitutional General appearance: Present: average body habitus, cooperative, no acute distress - EENT EENT Comment(s): right eye is reddened, swelling ENT: Present: hearing grossly normal - Respiratory Details: posterior diminished, right upper lobe rhonchi - Cardiovascular Heart sounds: normal: S1, S2 Abnormal Heart Sounds: Absent: systolic murmur, diastolic murmur, rub, S3 Gallop, S4 Gallop, click, other - Peripheral edema leg Peripheral Edema: bilateral: None - Gastrointestinal General gastrointestinal: Present: soft - Musculoskeletal Musculoskeletal: Present: generalized weakness - Psychiatric Psychiatric: Present: A&O x's 3, intact judgment & insight - Labs CBC & Chem 7: 02/26/20 05:28 02/28/20 06:43 Labs: Abnormal Lab Results - Last 24 Hours (Table) 02/27/20 02/28/20 02/28/20 Range/Units 18:09 00:44 06:29 POC Glucose (mg/dL) 120 H 121 H 109 H (75-99) mg/dL 02/28/20 Range/Units 11:52 POC Glucose (mg/dL) 181 H (75-99) mg/dL Microbiology - Last 24 Hours (Table) 02/27/20 22:20 Gram Stain - Preliminary Foot - Right Wound Culture - Preliminary 02/27/20 22:20 Anaerobic Culture - Preliminary Heel - Right Assessment and Plan (1) Tracheobronchitis Narrative/Plan: Patient treated for the same. Chest x-ray showing right lower lobe infiltrate and small pleural effusion. Patient is on treatment, Pulmonary is following Have requested incentive spirometry. Not sure if there is a modified wait for the patient to try to do some deep breathing and coughing exercises. He was encouraged. Current Visit: Yes Status: Acute Priority: High Code(s): J40 - BRONCHITIS, NOT SPECIFIED ACUTE OR CHRONIC SNOMED Code(s): 61552113 (2) Squamous cell carcinoma of left vocal cord Narrative/Plan: Newly diagnosed. Plan was to begin treatment with weekly cisplatin and concurrent radiation this week, delayed until current condition is treated and pt is improved. Patient understands this plan. 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 No drainage or crusting noted. Have asked him to continue to monitor and to report to Internal Medicine any changes.
[2020-02-28 18:03] LABS: Glucose,Whole Blood 134 mg/dL (75-99)
[2020-02-28] MEDS: SODIUM CHLORIDE 0.9% 1,000 ML IV SCH (18:20)
[2020-02-28] MEDS: MELATONIN 3 MG TABLET PO SCH (20:51)
--- NOTE | 2020-02-28 22:52 | PN ---
PROGRESS NOTE DATE OF SERVICE: 02/28/2020 REASON FOR FOLLOWUP: Pneumonia. INTERVAL HISTORY: The patient is currently afebrile. The patient has been breathing comfortably. Denies having any chest pain. Cough has decreased intensity and is less productive. No nausea. No vomiting. No abdominal pain or diarrhea. PHYSICAL EXAMINATION: Blood pressure 117/73 with a pulse of 94, temperature 97.7. He is 98% on trach collar. General description is an elderly male up in the chair in no distress. RESPIRATORY SYSTEM: Unlabored breathing with decreased intensity of breath sounds. No wheeze. HEART: S1, S2. Regular rate and rhythm. ABDOMEN: Soft. No tenderness. Right heel is currently dressed up. LABS: Creatinine 0.74. DIAGNOSTIC IMPRESSION AND PLAN: 1. Patient with pneumonia. Sputum has been Serratia marcescens and MSSA. Patient is covered with cefepime 2 grams q.12; to continue to finish a 2-week course of therapy. No need for vancomycin. 2. Right heel wound, pressure ulcer, with no cellulitis. Local care to continue and keep the area off pressure. MMODL / IJN: [id number] /
--- NOTE | 2020-02-29 00:01 | HP ---
HISTORY AND PHYSICAL PREOPERATIVE HISTORY AND PHYSICAL CHIEF COMPLAINT: Need to change tracheostomy tube. HISTORY OF PRESENT ILLNESS: This patient is a 64-year-old white male who was recently seen by my office and [facility] for consultation because of upper airway obstruction. 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 The patient subsequently underwent an urgent tracheostomy and suspension microlaryngoscopy and has been scheduled to start inductive chemotherapy and irradiation. Because it has been almost 3 months since his original tracheostomy, it was recommended that the tracheostomy tube/apparatus be changed. It is planned that the current cuffed tracheostomy tube will be changed to a fenestrated speaking tracheostomy tube. The patient was recently admitted to the hospital for atrial fibrillation and pneumonia. He apparently has been cleared for surgery by the anesthesia department. The procedure will either be done under IV sedation or under light general anesthesia. PAST MEDICAL HISTORY: This patient has allergies to LISINOPRIL, TYLENOL, and NSAID. His current medications include: Lopressor, Plavix, Benadryl, Catapres, Lasix, Ultram, Zantac, Lipitor, spironolactone. REVIEW OF SYSTEMS: Review of systems reveals: Cardiovascular system is positive for hypertension and ASHD. Respiratory system is positive for COPD/emphysema. Gastrointestinal system is positive for GERD (gastroesophageal reflux disorder). Metabolic/endocrine system is positive for hypercholesterolemia. Musculoskeletal system is positive for osteoarthritis. The remainder of review of systems is essentially unremarkable. PHYSICAL EXAMINATION: This patient is a 64-year-old male who is alert and cooperative. HEENT EXAMINATION: Patient is normocephalic. Tympanic membranes are normal. Middle ear spaces are free of any fluid or infection. Pupils equal, round, react to light and accommodation. Extraocular movements within normal limits. Intranasal examination reveals moderate to severe septal deviation with compensatory hypertrophy of the inferior turbinates. Examination of the oropharynx is unremarkable. Examination of neck reveals that the patient has an intact tracheostomy tube and the skin surrounding the tube appears to be noninfected. Cranial nerves 2 through 12 and the remainder of the head and neck exam are within normal limits. CHEST/CARDIOVASCULAR: Both lung mcgovern are clear to percussion and auscultation. The patient is in regular sinus rhythm. S1 and S2 are present without evidence any murmurs, S3s or S4. ABDOMEN: There is no evidence of masses, megaly or tenderness. Abdomen is soft. Skin is unremarkable. The remainder of the physical exam is essentially unremarkable. IMPRESSION: Plan to change current tracheostomy tube to a speaking fenestrated tracheostomy tube. PLAN: The plan is the same as above. That is to say, we plan to change his old tracheostomy tube to a fresh fenestrated speaking tracheostomy tube. ATTENTION RNs: I have not ordered any pre-surgical prophylactic antibiotics for this patient. If the pharmacy department sends any pre-surgical prophylactic antibiotics to the pre-surgical area for this patient, please return them to the pharmacy department and make sure that the patient's account is credited appropriately. In addition, the floor was called last night at approximately 8 p.m. and told to hold the patient's tube feedings, that is to say he was made n.p.o. I have discussed the risks, benefits and alternative therapies for the above-mentioned procedure and for both sedation/analgesia as well as necessary blood product administration, if indicated, as they pertain to this patient. The patient has indicated his or her understanding and acceptance of the risks and procedures discussed. MMODL / IJN: [id number] /
[2020-02-29 00:03] LABS: Glucose,Whole Blood 107 mg/dL (75-99)
--- NOTE | 2020-02-29 00:23 | P.PN ---
Subjective Progress Note Date: 02/28/20 Principal diagnosis: Acute hypoxic respiratory failure Mr. Laurent is a 64-year-old male with a past medical history of laryngeal cancer, PE and DVT, status post trach and PEG, hypertension, hyperlipidemia, GERD who was transferred from [facility] for upper airway congestion cough and difficulty in breathing. As the patient was having increased secretions from his trach tube he is currently being treated for acute tracheobronchitis with Zosyn. ID Dr. Rasmussen on board and following the patient. Patient also has new onset atrial fibrillation for which cardiology is following him closely. Patient COVID 19 negative. Chest x-ray was showing clearing of left basilar p neumonia and no new focal consolidations. Patient had multiple changes in antibiotic regimens, nitially he was given Zyvox and Levofloxacin then later changed to Cefepime, Vano along with Levofloxacin. He was also suicidal and so Psychiatry services evaluated him and started him on Zoloft and Melatonin. Patient's sputum culture is positive for Staphylococcus aureus and Serratia. So the patient is placed in isolation. On 02/26/2020 - sitter at bed side as he was having suicidal ideation. He had a CXR done that was worsening , so repeat sputum cultures are obtained.As per discussions with nursing staff, his secretions have been copious and causing discomfort , so ENT consulted. He is on 6 L per trach collar, his pulse ox is 96%, he is afebrile. Patient had a modified barium swallow yesterday on 02/25/2020 which showed normal swallowing with thin liquids and pudding thick consistency, without evidence of aspiration or penetration. Patient is still very depressed, and he was suicidal couple of days back. 02/27/2020 Patient is currently lying in the bedcomfortably. Patient did have nausea and episodes of vomiting this morning. 2 feedings on hold. Patient is currently on trach collar with FiO2 of 30% and pulse ox 95%. Still having some secretions from the tracheostomy tube. Currently being continued on antibiotics. New sputum culture showed no growth so far. ID is following. 2 feedings on hold due to nausea vomiting and monitor residual. Patient is being scheduled for tracheostomy accidents tomorrow. Chest x-ray showed persistent right perihilar and right lower lobeinfiltratewith small right-sided pleural effusion. Pulmonary is following. 02/28/2020 Patient is currently lying in the bed comfortably. Awake alert and oriented x3. More awake and able to communicate slowly. Still having thick yellowish sputum coming from the tracheostomy tube. Currently weaning antibiotics in the form of cefepime, vancomycin and Levaquin. Repeat sputum cultures are negative for any growth. Otherwise patient has been feeling well afebrile. Planning for tracheostomy exchange tomorrow. Patient is being continued antidepressants in the form of Zoloft. Continued on bedside sitter. Tube feedings restarted and is tolerating. Patient did have a bowel movement yesterday. No complaints of chest pain or worsening shortness of breath. No episodes of vomiting today. Active Medications Albuterol Sulfate (Ventolin Nebulized) 2.5 mg INHALATION RT-Q2H PRN PRN Reason: Shortness Of Breath Or Wheezing Albuterol/Ipratropium (Duoneb 0.5 Mg-3 Mg/3 Ml Soln) 3 ml INHALATION RT-QID [facility] Last Admin: 02/28/20 19:44 Dose: 3 ml Documented by: Apixaban (Eliquis) 5 mg PO BID [facility] Last Admin: 02/28/20 20:50 Dose: 5 mg Documented by: Atorvastatin Calcium (Lipitor) 20 mg PO DAILY [facility] Last Admin: 02/28/20 10:41 Dose: 20 mg Documented by: Diltiazem HCl (Cardizem Oral) 60 mg PO TID [facility] Last Admin: 02/28/20 20:51 Dose: 60 mg Documented by: Famotidine (Pepcid) 20 mg PO DAILY [facility] Last Admin: 02/28/20 10:41 Dose: 20 mg Documented by: Formoterol Fumarate (Perforomist) 20 mcg INHALATION RT-BID [facility] Last Admin: 02/28/20 19:44 Dose: 20 mcg Documented by: Sodium Chloride (Saline 0.9%) 1,000 mls @ 40 mls/hr IV .Q24H [facility] Last Admin: 02/28/20 18:20 Dose: 40 mls/hr Documented by: Levofloxacin 750 mg/ IV (Solution) 150 mls @ 100 mls/hr IVPB Q24H [facility] Last Admin: 02/28/20 10:45 Dose: 100 mls/hr Documented by: Cefepime HCl 2 gm/ Sodium (Chloride) 100 mls @ 200 mls/hr IVPB Q12HR [facility] Last Admin: 02/28/20 20:51 Dose: 200 mls/hr Documented by: Melatonin (Melatonin) 6 mg PO HS [facility] Last Admin: 02/28/20 20:51 Dose: 6 mg Documented by: Metoclopramide HCl (Reglan) 5 mg IVP Q6HR PRN PRN Reason: Nausea And Vomiting Metoprolol Tartrate (Lopressor) 100 mg PO BID [facility] Last Admin: 02/28/20 20:50 Dose: 100 mg Documented by: Miscellaneous Information (Potassium Per Protocol) 1 each MISCELLANE DAILY PRN; Protocol PRN Reason: Per Protocol Nicotine (Habitrol 14mg/24hr Patch) 1 patch TRANSDERM DAILY [facility] Last Admin: 02/28/20 10:41 Dose: 1 patch Documented by: Quetiapine Fumarate (Seroquel) 50 mg PO BID [facility] Last Admin: 02/28/20 20:50 Dose: 50 mg Documented by: Sertraline HCl (Zoloft) 50 mg PO DAILY [facility] Last Admin: 02/28/20 10:41 Dose: 50 mg Documented by: Thiamine HCl (Vitamin B-1) 100 mg PO DAILY@1200 [facility] Last Admin: 02/28/20 10:41 Dose: 100 mg Documented by: Objective - Vital Signs Vital signs: Vital Signs Temp 98.9 F 02/28/20 08:00 Pulse 73 02/28/20 12:00 Resp 20 02/28/20 04:00 BP 139/65 02/28/20 12:00 Pulse Ox 96 02/28/20 12:00 Intake & Output 02/27/20 02/28/20 02/28/20 18:59 06:59 18:59 Intake Total 280 0 0 Output Total 300 Balance -20 0 0 Weight 70 kg 70 kg Intake: Tube Feeding 280 0 0 Output: Urine 300 Other: Voiding Method Bedside Commode Bedside Commode Urinal Urinal # Voids 1 5 # Bowel Movements 1 1 - Exam PHYSICAL EXAMINATION: GENERAL: The patient is alert and oriented x3, thin built appears , no acute distress HEENT: Pupils are round and equally reacting to light. EOMI. No scleral icterus. Mild pallor. Excoriations of skin around the trach collar CARDIOVASCULAR: S1 and S2 present. No added sounds. PULMONARY: Trache collar in place bilateral rhonchi , decreased air entry into bilateral lung mcgovern. ABDOMEN: Soft, nontender, nondistended, normoactive bowel sounds. PEG tube in place. MUSCULOSKELETAL: No joint swelling or deformity. EXTREMITIES: Mild edema. Right heel ulcer. Left lower extremity bigger in girth than right. NEUROLOGICAL: Gross neurological examination did not reveal any focal deficits PSYCHIATRIC: Depressed - Labs CBC & Chem 7: 02/26/20 05:28 02/28/20 06:43 Labs: Abnormal Lab Results - Last 24 Hours (Table) 02/27/20 02/28/20 02/28/20 Range/Units 18:09 00:44 06:29 POC Glucose (mg/dL) 120 H 121 H 109 H (75-99) mg/dL 02/28/20 Range/Units 11:52 POC Glucose (mg/dL) 181 H (75-99) mg/dL Microbiology - Last 24 Hours (Table) 02/27/20 22:20 Gram Stain - Preliminary Foot - Right Wound Culture - Preliminary 02/27/20 22:20 Anaerobic Culture - Preliminary Heel - Right Assessment and Plan Assessment: ASSESSMENT Acute hypoxic respiratory failure due to acute tracheobronchitis Sputum culture is positive for staph aureus and Serratia. Repeat cultures negative so far. Suicidal ideation Depression. 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 repeat sputumcultures showed no growth so far. Patient is currently on vancomycin, cefepime and levofloxacin. Patient to be continued on breathing treatments and IV steroids. He is currently on Lopressor 100 mg twice a day and Cardizem 60 mg 3 times a day for rate control . Continue on Eliquis for anticoagulation. As the patient was suicidal, will continue with sitter at the bedside. Consulted ENT for possible Trach collar exchange.plan for tracheostomy x-rays tomorrow.tube feedings on hold due to nausea and vomiting. We will consider restarting. Continue with the rest of his current medication regimen. Overall prognosis is guarded. Further recommendations depending on the clinical course. Time with Patient: Greater than 30
[2020-02-29 06:20] LABS: Glucose,Whole Blood 102 mg/dL (75-99)
--- NOTE | 2020-02-29 07:17 | XR ---
EXAMINATION TYPE: XR chest 1V portable DATE OF EXAM: 02/29/2020 COMPARISON: 02/27/2020 HISTORY: Shortness of breath TECHNIQUE: Single frontal view of the chest is obtained. FINDINGS: Demonstrated are scattered senescent parenchymal change. Tracheostomy tube is unchanged. P ersistent right perihilar and right lower lobe infiltrate with small right-sided pleural effusion. Th e heart is stable. Hilar and mediastinal structures are within normal limits. Degenerative changes ar e seen of the dorsal spine IMPRESSION: 1. Persistent right-sided consolidation and pleural effusion stable in appearance.
[2020-02-29] MEDS: IPRATROPIUM-ALBUTEROL 3 ML NEB INHALATION SCH ×4 (07:57→19:58)
[2020-02-29] MEDS: FORMOTEROL FUMARATE 20 MCG/2 ML NEBU INHALATION SCH ×2 (07:57→19:58)
[2020-02-29] MEDS ORDERED: SERTRALINE 50 MG TAB PO SCH (09:00)
[2020-02-29] MEDS: CEFEPIME 2 GM in SODIUM CHLORIDE 0.9% 100 ML IVPB SCH ×2 (09:33→21:08)
[2020-02-29] MEDS: THIAMINE 100 MG TAB PO SCH (09:36)
[2020-02-29] MEDS: QUEtiapine 50 MG TAB PO SCH ×2 (09:36→21:08)
[2020-02-29] MEDS: FAMOTIDINE 20 MG TAB PO SCH (09:36)
[2020-02-29] MEDS: ATORVASTATIN 20 MG TAB PO SCH (09:36)
[2020-02-29] MEDS: LEVOFLOXACIN 750MG-D5W PMX 750 MG in DEXTROSE/WATER 1 150ML.BAG IVPB SCH (09:36)
[2020-02-29] MEDS: NICOTINE 14MG/24HR PATCH TRANSDERM SCH (09:36)
[2020-02-29] MEDS: DILTIAZEM ORAL 60 MG TAB PO SCH ×3 (09:36→21:08)
[2020-02-29] MEDS: SERTRALINE 50 MG TAB PO SCH (09:36)
[2020-02-29] MEDS: METOPROLOL TARTRATE 50 MG TAB PO SCH ×2 (09:36→21:07)
[2020-02-29] MEDS: APIXABAN 5 MG TAB PO SCH ×2 (09:36→21:08)
[2020-02-29 09:47] LABS: Basophils % (A) 0 %; Eosinophils # (A) 0.4 k/uL (0-0.7); Eosinophils % (A) 3 %; HCT 32.7 % (39.0-53.0); HGB 10.6 gm/dL (13.0-17.5); Hypochromasia Slight; Lymphocytes # (A) 1.3 k/uL (1.0-4.8); Lymphocytes % (A) 11 %; MCH 30.6 pg (25.0-35.0); MCHC 32.4 g/dL (31.0-37.0); MCV 94.3 fL (80.0-100.0); Mean Platelet Volume 9.1; Monocytes # (A) 0.8 k/uL (0-1.0); Monocytes % (A) 7 %; Neutrophils % (A) 76 %; Platelet Count 261 k/uL (150-450); RBC 3.47 m/uL (4.30-5.90); RDW 13.8 % (11.5-15.5); WBC 11.8 k/uL (3.8-10.6)
--- NOTE | 2020-02-29 11:24 | P.PN ---
Subjective Progress Note Date: 02/29/20 Principal diagnosis: MSSA and Serratia related pneumonia, A. 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 Patient also had a PEG tube placed for nutritional support. Patient had a prolonged hospitalization back in December during which left vocal cord squamous cell carcinoma was diagnosed. His staging CTs did not reveal metastatic disease , PET scan on 02/05/2020 showed uptake only in the left laryngeal mass with max SUV of 12.5. Patient was discharged to [facility] following his hospitalization, and was discharged home sometime in mid January. He was due to start chemoradiation this coming Tuesday on 02/25/2020. However patient developed progressive cough, purulent sputum production, increasing shortness of breath, and chills, he was taken to the hospital to [facility]. Patient also was found to be in atrial fibrillation with RVR. He had symptoms of increased weakness and fatigue. COVID 19 was ruled out. Chest x-ray showed clearing of the left basilar pneumonia and no new focal consolidation. Labs showed a white blood cell, 12.1, hemoglobin of 15.5, sodium of 141, potassium is 3.7, chloride is 110, CO2 is 23, BUN 16 creatinine 0.79, pro calcitonin was low at 0.10, patient is covered with Zosyn for empiric antibiotic coverage, he was fluid resuscitated, he is awake and alert, dentition is appropriate, he is on trach collar at 6 L/m, and his pulse ox is 94%, afebrile, large amount of thick secretions is being suctioned out of his trach, and preliminary sputum Gram stain showed moderate epithelial cells, few gram-positive cocci, few gram- positive bacilli and rare gram-negative bacilli The patient is seen today 02/23/2020 in follow-up on the selective care unit. He is currently sitting up in a chair at the bedside. Awake and alert in no acute distress. He is maintaining good O2 saturations in the 90s on 35% trach collar. He's been afebrile. Hemodynamically stable. Sputum culture is positive for presumptive staph aureus/gram-negative bacilli. White count 13.1. Hemoglobin 10.2. Sodium 141. Potassium 3.2. Creatinine 0.79. He is currently on Zosyn. The patient is seen today 02/24/2020 in follow-up on the selective care unit. He is currently sitting up in bed. Awake and alert in no acute distress. Denies any worsening shortness of breath. He is maintaining O2 saturations in the 90s on 35% trach collar. He is afebrile. Sputum culture is positive for Staphylococcus aureus and Serratia marcescens. He is currently on Zosyn and Zyvox. White count 10.5. Hemoglobin 10.9. Creatinine 0.73. He remains on bronchodilators. Anticoagulated with Eliquis. NicoDerm patch in place. On 02/25/2020 a.m. seeing this patient in follow-up. Medical floor. The patient is having significant amount of rest or secretions in his quite congested cough noted considerable amount of mucus. He is previous cultures of shown a combination of MSSA and Serratia and the patient was given accommodation Zosyn and Levaquin. Nevertheless, the follow-up chest exit was obtained this morning shows increasing infiltration of the right lung and a small right-sided pleural effusion also developed on the right side. There is mild patchy density in the left medial left lung base as well. Based on all this, an antibiotic change will be needed. He is afebrile. He underwent a swallow evaluation today and the modified barium swallow showed normal swallowing with thin liquids and pudding thick consistency and there was no evidence of any aspiration or penetration during the examination. His white cell count is at 10.5. The rest of the electrodes are all within normal limits. On 02/26/2020 patient is seen in follow-up on selective care unit, patient is on cefepime and Levaquin for evidence of MSSA and Serratia marcescens, and we requested another sputum culture to be sent yesterday in view of patient's worsening chest x-ray results and continued copious secretions out of his trache ostomy. Patient is seen in follow-up today, she is resting in bed, he seems to be feeling down, he is not talking much, she remains on 6 L per trach collar, his pulse ox is 96%, he is afebrile, still having moderate to large amount of tracheal secretions. He is receiving nutrition via his PEG tube. Apparently patient had a modified barium swallow yesterday on 02/25/2020 which showed essentially normal swallowing with thin liquids and pudding thick consistency, without evidence of aspiration or penetration. Patient seems to be very depressed, and he has made comments indicating suicidal ideation, for that reason fire safety inspector was placed at the bedside and psychiatric services were consulted and patient was started on Zoloft. On 02/27/2020 patient seen in follow-up on selective care unit. He is resting in bed with a fire safety inspector at the bedside, seems to be very withdrawn, he was started on Zoloft by psychiatric services for depression, and making statements about suicidal ideations. Does not appear to be in any acute distress, he is on the trach collar at FiO2 of 35%, his pulse ox is 95-99%, still significant secretions out of his tracheostomy, he is afebrile, he yesterday we added vancomycin in addition to cefepime and Levaquin, a new sputum culture was sent and did not show any growth, his original sputum culture from 02/21/2020 showed MSSA and Serratia marcescens. ID service is following, lung sounds reveal diffuse rhonchi bilaterally. Patient is receiving tube feedings. Today's chest x-ray has been reviewed showing persistent right perihilar and right lower lobe infiltrate with small right-sided pleural effusion. On 02/28/2020 patient seen in follow-up on selective care unit, is awake and alert, oriented 3, he is given some simple answers to distress, seems to be talking a little bit more on today's exam. Denies any acute distress, still seems to be quite congested, rhonchorous, producing yellow to baker colored phlegm, he remains on accommodation cefepime, Levaquin and vancomycin, repeat sputum culture has shown no growth. Patient's right heel ulcer has been cultured, wound cultures are pending. No fever or chills, he is on the trach collar with FiO2 of 35%, he has been started on Zoloft for depression, and a fire safety inspector remains at the bedside. We will repeat chest x-ray tomorrow. On 02/29/2020 patient seen in follow-up on selective care unit. He is sleeping in bed, appears tired, not talking very much, he does wake up, and answer qu estions, she states she didn't sleep last night. Appears to be in no acute distress, sounds better less congested and wheezy on today's exam, with less congested breath sounds. He is on 35% trach collar, with a pulse ox of 97%, he is afebrile, remains on a combination of cefepime and Levaquin, ID service is following, his repeat sputum culture showed no growth. His wound on his right heel was also cultured, and the culture is pending at this time, preliminary Gram stain showed rare gram-positive cocci. Patient's tube feedings are on hold for surgical procedure today, patient is scheduled for tracheostomy change by Dr. Lawrence today at 12:00. Objective - Vital Signs Vital signs: Vital Signs Temp 98.3 F 02/29/20 08:00 Pulse 82 02/29/20 08:25 Resp 19 02/29/20 04:00 BP 129/66 02/29/20 08:00 Pulse Ox 97 02/29/20 08:00 Intake & Output 02/28/20 02/29/20 02/29/20 18:59 06:59 18:59 Intake Total 0 0 0 Balance 0 0 0 Weight 70 kg 70 kg Intake: Tube Feeding 0 0 0 Other: Voiding Method Bedside Commode Urinal # Voids 4 6 # Bowel Movements 1 - Exam GENERAL EXAM: Alert, very withdrawn, 64-year-old male patient, on trach collar, 35% FiO2, with a pulse ox of 99% comfortable in no apparent distress. before school babysitter is at the bedside for suicidal precautions HEAD: Normocephalic/atraumatic. EYES: Normal reaction of pupils, equal size. Conjunctiva pink, sclera white. NOSE: Clear with pink turbinates. THROAT: No erythema or exudates. NECK: No masses, no JVD, no thyroid enlargement, no adenopathy. Midline tracheostomy CHEST: No chest wall deformity. Symmetrical expansion. LUNGS: Equal air entry with some scattered rhonchi, but no wheeze, dullness. CVS: Regular rate and rhythm, normal S1 and S2, no gallops, no murmurs, no rubs ABDOMEN: Soft, nontender. No hepatosplenomegaly, normal bowel sounds, no guarding or rigidity. PEG tube present, with tube feedings infusing EXTREMITIES: No clubbing, no edema, no cyanosis, 2+ pulses and upper and lower extremities. MUSCULOSKELETAL: Muscle strength and tone normal. SPINE: No scoliosis or deformity SKIN: No rashes CENTRAL NERVOUS SYSTEM: No focal deficits, tone is normal in all 4 extremities. PSYCHIATRIC: Alert and oriented -3. Appropriate affect. Intact judgment and insight. - Labs CBC & Chem 7: 02/29/20 08:58 02/28/20 06:43 Labs: Abnormal Lab Results - Last 24 Hours (Table) 02/28/20 02/28/20 02/29/20 Range/Units 11:52 18:01 00:02 WBC (3.8-10.6) k/uL RBC (4.30-5.90) m/uL Hgb (13.0-17.5) gm/dL Hct (39.0-53.0) % Neutrophils # (1.3-7.7) k/uL POC Glucose (mg/dL) 181 H 134 H 107 H (75-99) mg/dL 02/29/20 02/29/20 Range/Units 06:19 08:58 WBC 11.8 H (3.8-10.6) k/uL RBC 3.47 L (4.30-5.90) m/uL Hgb 10.6 L (13.0-17.5) gm/dL Hct 32.7 L (39.0-53.0) % Neutrophils # 9.0 H (1.3-7.7) k/uL POC Glucose (mg/dL) 102 H (75-99) mg/dL Microbiology - Last 24 Hours (Table) 02/27/20 22:20 Gram Stain - Preliminary Foot - Right Wound Culture - Preliminary Assessment and Plan Plan: #1. Acute hypoxic respiratory failure related to methicillin sensitive staph aureus and Serratia marcescens, nevertheless, there is worsening of the right lung infiltrate and today's chest x-ray and there is also development of a small right-sided pleural effusion addition to increase rest or secretions on examination. The patient started off with symptoms of tracheal bronchitis and initial chest x-ray was clear and subsequently developed extensive infiltration of the right lung. He was on a, initial Zosyn and Levaquin and vancomycin On 02/27/2020 patient continues on FiO2 of 35% per trach collar, still significantly congested, and there is large amount of secretions out of his tracheostomy, another sputum sample was sent yesterday and has shown no growth, remains on combination of cefepime Levaquin and vancomycin On 02/29/2020 patient remains on 35% trach collar, maintaining stable saturations, less congested and having less secretions out of his tracheostomy. He is going for tracheostomy change today on 02/29/[address] Lawrence. Repeat sputum culture showed no growth. Chest x-ray shows persistent right-sided consolidation and pleural effusion #2. Weakness, dehydration, increased phlegm production, cough, related to the above #3. New onset atrial fibrillation with rapid ventricular response on presentation, currently better controlled, possibly related to dehydration and sepsis #4. 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 Patient is due to start treatment on Tuesday on 02/25/2020 with hemotherapy and radiation #5. Previous history of EtOH abuse #6. History of right lower extremity DVT in 2018, patient is not a candidate for chronic anticoagulation, he is status post IVC filter placement #7. Underlying COPD #8. Ex-smoker #9. Depression, suicidal ideation Plan: Continue with antibiotics per ID service recommendations. Patient is currently on cefepime and Levaquin, repeat sputum cultures were negative, but less congested on today's exam, FiO2 is at 35%, patient is maintaining stable oxygenation, chest x-ray shows persistent right-sided consolidation and pleural effusion, will probably need a follow-up CT of the chest tomorrow. Continue current medical treatment right now. I performed a history & physical examination of the patient and discussed their management with my nurse practitioner, Marifer Hernández. I reviewed the nurse practitioner's note and agree with the documented findings and plan of care. Lung sounds are positive for diminished breath sounds, scattered rhonchi throughout the lung mcgovern. The findings and the impression was discussed with the patient. I attest to the documentation by the nurse practitioner. Time with Patient: Less than 30
[2020-02-29] MEDS ORDERED: IV FLUID CONTINUATION 800 ML IV ONE (11:34)
[2020-02-29] MEDS ORDERED: GLYCOPYRROLATE 0.2 MG/ML 2 ML VIAL ONE (13:08)
[2020-02-29] MEDS ORDERED: KETAMINE 10 MG/ML 20 ML VIAL ONE (13:08)
[2020-02-29] MEDS ORDERED: MIDAZOLAM 2 MG/2 ML VIAL ONE (13:08)
[2020-02-29] MEDS ORDERED: PROPOFOL 10 MG/ML 20 ML VIAL IV ONE (13:08)
[2020-02-29] MEDS: SODIUM CHLORIDE 0.9% 1,000 ML IV SCH (17:13)
--- NOTE | 2020-02-29 17:18 | P.PN ---
Subjective Progress Note Date: 02/29/20 Principal diagnosis: Sepsis No acute or new complaints today Objective - Vital Signs Vital signs: Vital Signs Temp 98.0 F 02/29/20 13:37 Pulse 92 02/29/20 16:42 Resp 14 02/29/20 14:15 BP 119/65 02/29/20 14:15 Pulse Ox 97 02/29/20 16:30 Intake & Output 02/28/20 02/29/20 02/29/20 18:59 06:59 18:59 Intake Total 0 0 200 Output Total 1 Balance 0 0 199 Weight 70 kg 70 kg Intake: IV 200 Tube Feeding 0 0 0 Output: Estimated Blood Loss 1 Other: Voiding Method Bedside Commode Bedside Commode Urinal Urinal # Voids 4 6 # Bowel Movements 1 - Exam - Constitutional General appearance: Present: average body habitus, cooperative, no acute distress - EENT EENT Comment(s): right eye is reddened, swelling ENT: Present: hearing grossly normal - Respiratory Details: posterior diminished, right upper lobe rhonchi Increased effort - Cardiovascular Heart sounds: normal: S1, S2 Abnormal Heart Sounds: Absent: systolic murmur, diastolic murmur, rub, S3 Gallop, S4 Gallop, click, other - Peripheral edema leg Peripheral Edema: bilateral: None Sling on left arm - Gastrointestinal General gastrointestinal: Present: soft - Musculoskeletal Musculoskeletal: Present: generalized weakness - Psychiatric Psychiatric: Present: A&O x's 3, intact judgment & insight - Labs CBC & Chem 7: 02/29/20 08:58 02/28/20 06:43 Labs: Abnormal Lab Results - Last 24 Hours (Table) 02/28/20 02/29/20 02/29/20 Range/Units 18:01 00:02 06:19 WBC (3.8-10.6) k/uL RBC (4.30-5.90) m/uL Hgb (13.0-17.5) gm/dL Hct (39.0-53.0) % Neutrophils # (1.3-7.7) k/uL POC Glucose (mg/dL) 134 H 107 H 102 H (75-99) mg/dL 02/29/20 Range/Units 08:58 WBC 11.8 H (3.8-10.6) k/uL RBC 3.47 L (4.30-5.90) m/uL Hgb 10.6 L (13.0-17.5) gm/dL Hct 32.7 L (39.0-53.0) % Neutrophils # 9.0 H (1.3-7.7) k/uL POC Glucose (mg/dL) (75-99) mg/dL Assessment and Plan Plan: Assessment and Plan Tracheobronchitis - Patient treated for the same. Chest x-ray showing right lower lobe infiltrate and small pleural effusion. Patient is on treatment, Pulmonary is following Squamous cell carcinoma of left vocal cord - Newly diagnosed. - Plan was to begin treatment with weekly cisplatin and concurrent radiation this week, delayed until current condition is treated and pt is improved. - Patient understands this plan. - Will need to ensure infection is clear prior to initiation of treatment Physician Attest: I have completed the full history and physical and agree with above dictation by Waleska Mckeon, Dictated as a scribe
[2020-02-29 17:40] LABS: Glucose,Whole Blood 95 mg/dL (75-99)
--- NOTE | 2020-02-29 17:52 | P.PN ---
Subjective Progress Note Date: 02/29/20 64-year-old male with a past medical history of laryngeal cancer, PE and DVT, status post trach and PEG, hypertension, hyperlipidemia, GERD who was transferred from [facility] for upper airway congestion cough and difficulty in breathing. As the patient was having increased secretions from his trach tube he is currently being treated for acute tracheobronchitis with Zosyn. ID Dr. Rasmussen on board and following the patient. Patient also has new onset atrial fibrillation for which cardiology is following him closely. Patient COVID 19 negative. Chest x-ray was showing clearing of left basilar pneumonia and no new focal consolidations. Patient had multiple changes in antibiotic regimens, nitially he was given Zyvox and Levofloxacin then later changed to Cefepime, Vano along with Levofloxacin. He was also suicidal and so Psychiatry services evaluated him and started him on Zoloft and Melatonin. Patient's sputum culture is positive for Staphylococcus aureus and Serratia. So the patient is placed in isolation. 02/29/2020 patient seen sleeping in bed, appears tired, not talking very much, he does wake up, and answer questions, she states she didn't sleep last night. Appears to be in no acute distress, sounds better less congested and wheezy on today's exam, with less congested breath sounds. He is on 35% trach collar, with a pulse ox of 97%, he is afebrile, remains on a combination of cefepime and Levaquin, ID service is following, his repeat sputum culture showed no growth. His wound on his right heel was also cultured, and the culture is pending at this time, preliminary Gram stain showed rare gram-positive cocci. Patient's tube feedings are on hold for surgical procedure today, patient is scheduled for tracheostomy change by Dr. Lawrence today Objective - Vital Signs Vital signs: Vital Signs Temp 97.8 F 02/29/20 11:34 Pulse 72 02/29/20 11:34 Resp 18 02/29/20 11:34 BP 126/67 02/29/20 11:34 Pulse Ox 97 02/29/20 11:34 Intake & Output 02/28/20 02/29/20 02/29/20 18:59 06:59 18:59 Intake Total 0 0 100 Balance 0 0 100 Weight 70 kg 70 kg Intake: IV 100 Tube Feeding 0 0 0 Other: Voiding Method Bedside Commode Bedside Commode Urinal Urinal # Voids 4 6 # Bowel Movements 1 - Exam PHYSICAL EXAMINATION: GENERAL: The patient is alert and oriented x3, not in any acute distress. Well developed, well nourished. HEENT: Pupils are round and equally reacting to light. EOMI. No scleral icterus. No conjunctival pallor. Normocephalic, atraumatic. No pharyngeal erythema. No thyromegaly. CARDIOVASCULAR: S1 and S2 present. No murmurs, rubs, or gallops. PULMONARY: Chest is clear to auscultation, no wheezing or crackles. ABDOMEN: Soft, nontender, nondistended, normoactive bowel sounds. No palpable organomegaly. MUSCULOSKELETAL: No joint swelling or deformity. EXTREMITIES: No cyanosis, clubbing, or pedal edema. NEUROLOGICAL: Gross neurological examination did not reveal any focal deficits. SKIN: No rashes. - Labs CBC & Chem 7: 02/29/20 08:58 02/28/20 06:43 Labs: Abnormal Lab Results - Last 24 Hours (Table) 02/28/20 02/29/20 02/29/20 Range/Units 18:01 00:02 06:19 WBC (3.8-10.6) k/uL RBC (4.30-5.90) m/uL Hgb (13.0-17.5) gm/dL Hct (39.0-53.0) % Neutrophils # (1.3-7.7) k/uL POC Glucose (mg/dL) 134 H 107 H 102 H (75-99) mg/dL 02/29/20 Range/Units 08:58 WBC 11.8 H (3.8-10.6) k/uL RBC 3.47 L (4.30-5.90) m/uL Hgb 10.6 L (13.0-17.5) gm/dL Hct 32.7 L (39.0-53.0) % Neutrophils # 9.0 H (1.3-7.7) k/uL POC Glucose (mg/dL) (75-99) mg/dL Microbiology - Last 24 Hours (Table) 02/27/20 22:20 Gram Stain - Preliminary Foot - Right Wound Culture - Preliminary Assessment and Plan Assessment: Acute hypoxic respiratory failure due to acute tracheobronchitis Sputum culture is positive for staph aureus and Serratia. Repeat cultures negative so far. Suicidal ideation Depression. 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 repeat sputumcultures showed no growth so far. Patient is currently on vancomycin, cefepime and levofloxacin. Patient to be continued on breathing treatments and IV steroids. He is currently on Lopressor 100 mg twice a day and Cardizem 60 mg 3 times a day for rate control . Continue on Eliquis for anticoagulation. As the patient was suicidal, will continue with sitter at the bedside. Consulted ENT for possible Trach collar exchange.plan for tracheostomy x-rays tomorrow.tube feedings on hold due to nausea and vomiting. We will cons ider restarting. Continue with the rest of his current medication regimen. Overall prognosis is guarded. Further recommendations depending on the clinical course.
[2020-02-29] MEDS: MELATONIN 3 MG TABLET PO SCH (21:08)
--- NOTE | 2020-02-29 22:42 | PN ---
PROGRESS NOTE DATE OF SERVICE: 02/29/2020 REASON FOR FOLLOWUP: Pneumonia. INTERVAL HISTORY: The patient is afebrile. The patient is breathing comfortably. Denies having any chest pain. Cough about the same; no worsening. No nausea, no vomiting, no abdominal pain or diarrhea. PHYSICAL EXAMINATION: Blood pressure is 151/70 with a pulse of 85, temperature 98.3. He is 100% on trach collar. General description is an elderly male lying in bed in no distress. RESPIRATORY SYSTEM: Unlabored breathing. Some coarse breath sounds bilaterally. No wheeze. HEART: S1, S2. Regular rate and rhythm. ABDOMEN: Soft. No tenderness. LABS: Hemoglobin is 10.6, white count 11.8. DIAGNOSTIC IMPRESSION AND PLAN: 1. Patient with pneumonia. Sputum has been Serratia marcescens and MSSA. The patient is covered with cefepime; to continue and monitor his clinical course closely. 2. Right heel wound. Local wound care with Medihoney followed by moist dressing. MMODL / IJN: [id number] /
[2020-03-01 00:19] LABS: Glucose,Whole Blood 118 mg/dL (75-99)
[2020-03-01 06:42] LABS: Glucose,Whole Blood 121 mg/dL (75-99)
[2020-03-01] MEDS: IPRATROPIUM-ALBUTEROL 3 ML NEB INHALATION SCH ×4 (07:12→19:20)
[2020-03-01] MEDS: FORMOTEROL FUMARATE 20 MCG/2 ML NEBU INHALATION SCH ×2 (07:12→19:20)
[2020-03-01] MEDS: DILTIAZEM ORAL 60 MG TAB PO SCH ×3 (09:53→21:00)
[2020-03-01] MEDS: NICOTINE 14MG/24HR PATCH TRANSDERM SCH (09:53)
[2020-03-01] MEDS: QUEtiapine 50 MG TAB PO SCH ×2 (09:53→21:01)
[2020-03-01] MEDS: APIXABAN 5 MG TAB PO SCH ×2 (09:53→21:00)
[2020-03-01] MEDS: SERTRALINE 50 MG TAB PO SCH (09:53)
[2020-03-01] MEDS: METOPROLOL TARTRATE 50 MG TAB PO SCH ×2 (09:53→21:01)
[2020-03-01] MEDS: ATORVASTATIN 20 MG TAB PO SCH (09:53)
[2020-03-01] MEDS: FAMOTIDINE 20 MG TAB PO SCH (09:53)
[2020-03-01] MEDS: CEFEPIME 2 GM in SODIUM CHLORIDE 0.9% 100 ML IVPB SCH ×2 (09:54→21:01)
[2020-03-01 10:22] LABS: ALT 30 U/L (4-49); AST 31 U/L (17-59); African American GFR (CKD) >90 (>60 ml/min/1.73 sqM); Albumin 3.3 g/dL (3.5-5.0); Alkaline Phosphatase 124 U/L (38-126); Anion Gap 11 mmol/L; Blood Urea Nitrogen 12 mg/dL (9-20); Calcium 9.3 mg/dL (8.4-10.2); Carbon Dioxide 24 mmol/L (22-30); Chloride 104 mmol/L (98-107); Glucose 127 mg/dL (74-99); Non-African American GFR(CKD) >90 (>60 ml/min/1.73 sqM); Potassium 3.3 mmol/L (3.5-5.1); Sodium 139 mmol/L (137-145); Total Bilirubin 0.3 mg/dL (0.2-1.3); Total Protein 6.5 g/dL (6.3-8.2)
[2020-03-01 10:28] LABS: HCT 34.2 % (39.0-53.0); HGB 10.9 gm/dL (13.0-17.5); Hypochromasia Moderate; MCH 30.6 pg (25.0-35.0); MCHC 31.9 g/dL (31.0-37.0); MCV 95.8 fL (80.0-100.0); Mean Platelet Volume 9.4; Platelet Count 268 k/uL (150-450); RBC 3.56 m/uL (4.30-5.90); RDW 13.7 % (11.5-15.5); WBC 13.9 k/uL (3.8-10.6)
--- NOTE | 2020-03-01 11:16 | P.PN ---
Subjective Progress Note Date: 03/01/20 Principal diagnosis: Acute hypoxic respiratory failure secondary to acute tracheobronchitis. 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 Patient also had a PEG tube placed for nutritional support. Patient had a prolonged hospitalization back in December during which left vocal cord squamous cell carcinoma was diagnosed. His staging CTs did not reveal metastatic disease, PET scan on 02/05/2020 showed uptake only in the left laryngeal mass with max SUV of 12.5. Patient was discharged to [facility] following his hospitalization, and was discharged home sometime in mid January. He was due to start chemoradiation this coming Tuesday on 02/25/2020. However patient de veloped progressive cough, purulent sputum production, increasing shortness of breath, and chills, he was taken to the hospital to [facility]. Patient also was found to be in atrial fibrillation with RVR. He had symptoms of increased weakness and fatigue. COVID 19 was ruled out. Chest x-ray showed clearing of the left basilar pneumonia and no new focal consolidation. Labs showed a white blood cell, 12.1, hemoglobin of 15.5, sodium of 141, potassium is 3.7, chloride is 110, CO2 is 23, BUN 16 creatinine 0.79, pro calcitonin was low at 0.10, patient is covered with Zosyn for empiric antibiotic coverage, he was fluid resuscitated, he is awake and alert, dentition is appropriate, he is on trach collar at 6 L/m, and his pulse ox is 94%, afebrile, large amount of thick secretions is being suctioned out of his trach, and preliminary sputum Gram stain showed moderate epithelial cells, few gram-positive cocci, few gram- positive bacilli and rare gram-negative bacilli The patient is seen today 02/23/2020 in follow-up on the selective care unit. He is currently sitting up in a chair at the bedside. Awake and alert in no acute distress. He is maintaining good O2 saturations in the 90s on 35% trach collar. He's been afebrile. Hemodynamically stable. Sputum culture is positive for presumptive staph aureus/gram-negative bacilli. White count 13.1. Hemoglobin 10.2. Sodium 141. Potassium 3.2. Creatinine 0.79. He is currently on Zosyn. The patient is seen today 02/24/2020 in follow-up on the selective care unit. He is currently sitting up in bed. Awake and alert in no acute distress. Denies any worsening shortness of breath. He is maintaining O2 saturations in the 90s on 35% trach collar. He is afebrile. Sputum culture is positive for Staphylococcus aureus and Serratia marcescens. He is currently on Zosyn and Zyvox. White count 10.5. Hemoglobin 10.9. Creatinine 0.73. He remains on bronchodilators. Anticoagulated with Eliquis. NicoDerm patch in place. On 02/25/2020 a.m. seeing this patient in follow-up. Medical floor. The patient is having significant amount of rest or secretions in his quite congested cough noted considerable amount of mucus. He is previous cultures of shown a combination of MSSA and Serratia and the patient was given accommodation Zosyn and Levaquin. Nevertheless, the follow-up chest exit was obtained this mo rning shows increasing infiltration of the right lung and a small right-sided pleural effusion also developed on the right side. There is mild patchy density in the left medial left lung base as well. Based on all this, an antibiotic change will be needed. He is afebrile. He underwent a swallow evaluation today and the modified barium swallow showed normal swallowing with thin liquids and pudding thick consistency and there was no evidence of any aspiration or penetration during the examination. His white cell count is at 10.5. The rest of the electrodes are all within normal limits. On 02/26/2020 patient is seen in follow-up on selective care unit, patient is on cefepime and Levaquin for evidence of MSSA and Serratia marcescens, and we requested another sputum culture to be sent yesterday in view of patient's worsening chest x-ray results and continued copious secretions out of his tracheostomy. Patient is seen in follow-up today, she is resting in bed, he seems to be feeling down, he is not talking much, she remains on 6 L per trach collar, his pulse ox is 96%, he is afebrile, still having moderate to large amount of tracheal secretions. He is receiving nutrition via his PEG tube. Apparently patient had a modified barium swallow yesterday on 02/25/2020 which showed essentially normal swallowing with thin liquids and pudding thick consistency, without evidence of aspiration or penetration. Patient seems to be very depressed, and he has made comments indicating suicidal ideation, for that reason construction safety consultant was placed at the bedside and psychiatric services were consulted and patient was started on Zoloft. On 02/27/2020 patient seen in follow-up on selective care unit. He is resting in bed with a construction safety consultant at the bedside, seems to be very withdrawn, he was started on Zoloft by psychiatric services for depression, and making statements about suicidal ideations. Does not appear to be in any acute distress, he is on the trach collar at FiO2 of 35%, his pulse ox is 95-99%, still significant secretions out of his tracheostomy, he is afebrile, he yesterday we added vancomycin in addition to cefepime and Levaquin, a new sputum culture was sent and did not show any growth, his original sputum culture from 02/21/2020 showed MSSA and Serratia marcescens. ID service is following, lung sounds reveal diffuse rhonchi bilaterally. Patient is receiving tube feedings. Today's chest x-ray has been reviewed showing persistent right perihilar and right lower lobe infiltrate with small right-sided pleural effusion. On 02/28/2020 patient seen in follow-up on selective care unit, is awake and alert, oriented 3, he is given some simple answers to distress, seems to be talking a little bit more on today's exam. Denies any acute distress, still seems to be quite congested, rhonchorous, producing yellow to baker colored phlegm, he remains on accommodation cefepime, Levaquin and vancomycin, repeat sputum culture has shown no growth. Patient's right heel ulcer has been cultured, wound cultures are pending. No fever or chills, he is on the trach co llar with FiO2 of 35%, he has been started on Zoloft for depression, and a construction safety consultant remains at the bedside. We will repeat chest x-ray tomorrow. On 02/29/2020 patient seen in follow-up on selective care unit. He is sleeping in bed, appears tired, not talking very much, he does wake up, and answer questions, she states she didn't sleep last night. Appears to be in no acute distress, sounds better less congested and wheezy on today's exam, with less congested breath sounds. He is on 35% trach collar, with a pulse ox of 97%, he is afebrile, remains on a combination of cefepime and Levaquin, ID service is following, his repeat sputum culture showed no growth. His wound on his right h eel was also cultured, and the culture is pending at this time, preliminary Gram stain showed rare gram-positive cocci. Patient's tube feedings are on hold for surgical procedure today, patient is scheduled for tracheostomy change by Dr. Lawrence today at 12:00. The patient is seen today 03/01/2020 in follow-up on the selective care unit. He is currently sitting up in a chair at the bedside. Awake and alert in no acute distress. He did undergo a change out of his tracheostomy tube yesterday. Size 8.0. Uncuffed. No shortness of breath. Continues with some copious secretions. He is maintaining good O2 saturations in the 90s on trach collar at 35% FiO2. Follow-up sputum cultures revealed no growth. He is continued on cefepime and Levaquin. Remains on Eliquis for anticoagulated. Remains on bronchodilators. NicoDerm patch in place. Objective - Vital Signs Vital signs: Vital Signs Temp 98.8 F 03/01/20 03:37 Pulse 88 03/01/20 11:07 Resp 18 03/01/20 08:00 BP 182/84 03/01/20 08:00 Pulse Ox 95 03/01/20 08:00 Intake & Output 02/29/20 03/01/20 03/01/20 18:59 06:59 18:59 Intake Total 200 0 Output Total 601 1425 Balance -401 -1425 Weight 70 kg 63.8 kg Intake: IV 200 Tube Feeding 0 0 Output: Urine 600 1425 Estimated Blood Loss 1 Other: Voiding Method Bedside Commode Bedside Commode Urinal Urinal # Voids 3 1 # Bowel Movements 2 1 - Exam GENERAL EXAM: Alert, pleasant, 64-year-old male patient, on trach collar, 35% FiO2, up in a chair at the bedside, comfortable in no apparent distress. HEAD: Normocephalic/atraumatic. EYES: Normal reaction of pupils, equal size. Conjunctiva pink, sclera white. NOSE: Clear with pink turbinates. THROAT: No erythema or exudates. NECK: No masses, no JVD, no thyroid enlargement, no adenopathy. Midline tracheostomy CHEST: No chest wall deformity. Symmetrical expansion. LUNGS: Equal air entry with some scattered rhonchi, but no wheeze, dullness. CVS: Regular rate and rhythm, normal S1 and S2, no gallops, no murmurs, no rubs ABDOMEN: Soft, nontender. No hepatosplenomegaly, normal bowel sounds, no guarding or rigidity. PEG tube present, with tube feedings infusing EXTREMITIES: No clubbing, no edema, no cyanosis, 2+ pulses and upper and lower extremities. MUSCULOSKELETAL: Muscle strength and tone normal. SPINE: No scoliosis or deformity SKIN: No rashes CENTRAL NERVOUS SYSTEM: No focal deficits, tone is normal in all 4 extremities. PSYCHIATRIC: Alert and oriented -3. Appropriate affect. Intact judgment and insight. - Labs CBC & Chem 7: 03/01/20 09:15 03/01/20 09:15 Labs: Abnormal Lab Results - Last 24 Hours (Table) 03/01/20 03/01/20 03/01/20 Range/Units 00:15 06:40 09:15 WBC 13.9 H (3.8-10.6) k/uL RBC 3.56 L (4.30-5.90) m/uL Hgb 10.9 L (13.0-17.5) gm/dL Hct 34.2 L (39.0-53.0) % Potassium (3.5-5.1) mmol/L Glucose (74-99) mg/dL POC Glucose (mg/dL) 118 H 121 H (75-99) mg/dL Albumin (3.5-5.0) g/dL 03/01/20 Range/Units 09:15 WBC (3.8-10.6) k/uL RBC (4.30-5.90) m/uL Hgb (13.0-17.5) gm/dL Hct (39.0-53.0) % Potassium 3.3 L (3.5-5.1) mmol/L Glucose 127 H (74-99) mg/dL POC Glucose (mg/dL) (75-99) mg/dL Albumin 3.3 L (3.5-5.0) g/dL Microbiology - Last 24 Hours (Table) 02/27/20 22:20 Gram Stain - Final Foot - Right Wound Culture - Final Assessment and Plan Assessment: #1. Acute hypoxic respiratory failure related to methicillin sensitive staph aureus and Serratia marcescens #2. Weakness, dehydration, increased phlegm production, cough, related to the above #3. New onset atrial fibrillation with rapid ventricular response on presentation, currently better controlled, possibly related to dehydration and sepsis #4. 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 Patient is due to start treatment on Tuesday on 02/25/2020 with hemotherapy and radiation. Tracheostomy tube changed out on 02/29/2020. #8.0. Uncuffed. #5. Previous history of EtOH abuse #6. History of right lower extremity DVT in 2018, patient is not a candidate for chronic anticoagulation, he is status post IVC filter placement #7. Underlying COPD #8. Ex-smoker Plan: The patient was seen and evaluated by Dr. Tabares Continue current treatment plan We'll continue to follow I, the cosigning physician, performed a history & physical examination of the patient. Lungs sounds with bilateral scattered rhonchi. Maintaining good O2 saturations in the 90s on 35% FiO2 via trach collar. I discussed the assessment and plan of care with my nurse practitioner, Sharifa Bennett. I attest to the above note as dictated by her.
[2020-03-01 11:26] LABS: Eosinophils # (M) 0.42 k/uL (0-0.7); Lymphocytes # (M) 0.83 k/uL (1.0-4.8); Neutrophils # (M) 11.95 k/uL (1.3-7.7); Neutrophils % (M) 86 %; Nucleated Red Blood Cells 0 /100 WBC (0-0); Total Cells Counted 100
[2020-03-01] MEDS: LEVOFLOXACIN 750MG-D5W PMX 750 MG in DEXTROSE/WATER 1 150ML.BAG IVPB SCH (11:43)
[2020-03-01 12:02] LABS: Glucose,Whole Blood 131 mg/dL (75-99)
[2020-03-01] MEDS ORDERED: ANIDULAFUNGIN 200 MG in SODIUM CHLORIDE 0.9% 200 ML IVPB ONE (16:00)
[2020-03-01] MEDS: SODIUM CHLORIDE 0.9% 1,000 ML IV SCH (16:15)
--- NOTE | 2020-03-01 16:16 | PN ---
PROGRESS NOTE DATE OF SERVICE: 03/01/2020 REASON FOR FOLLOWUP: Pneumonia. INTERVAL HISTORY: The patient is currently afebrile. He is breathing comfortably on a trach collar. No chest pain. Breathing has improved. Cough is improved as well. No nausea, vomiting, or any diarrhea. PHYSICAL EXAMINATION: Blood pressure 144/68 with a pulse of 59, temperature 98. He is 100% on trach collar. General description is an elderly male up in the bed in no distress. Respiratory system: Unlabored breathing, decreased breath sounds. No wheeze. Heart S1, S2. Regular rate and rhythm. Abdomen soft, no tenderness. LABS: White count is up to 13.9, creatinine 0.81. DIAGNOSTIC IMPRESSION AND PLAN: 1. Patient with MSSA and Serratia marcescens pneumonia. Patient is covered with cefepime to continue to finish a 2-week course of therapy. 2. Patient has slight worsening with white count, could be related to steroid effect versus possible oropharyngeal candidiasis. We will add antifungals and repeat CBC tomorrow. MMODL / IJN: [id number] /
[2020-03-01] MEDS: THIAMINE 100 MG TAB PO SCH (16:22)
[2020-03-01 17:06] LABS: Glucose,Whole Blood 129 mg/dL (75-99)
--- NOTE | 2020-03-01 18:11 | P.PN ---
Subjective Progress Note Date: 03/01/20 64-year-old male with a past medical history of laryngeal cancer, PE and DVT, status post trach and PEG, hypertension, hyperlipidemia, GERD who was transferred from [facility] for upper airway congestion cough and difficulty in breathing. As the patient was having increased secretions from his trach tube he is currently being treated for acute tracheobronchitis with Zosyn. ID Dr. Rasmussen on board and following the patient. Patient also has new onset atrial fibrillation for which cardiology is following him closely. Patient COVID 19 negative. Chest x-ray was showing clearing of left basilar pneumonia and no new focal consolidations. Patient had multiple changes in antibiotic regimens, nitially he was given Zyvox and Levofloxacin then later changed to Cefepime, Vano along with Levofloxacin. He was also suicidal and so Psychiatry services evaluated him and started him on Zoloft and Melatonin. Patient's sputum culture is positive for Staphylococcus aureus and Serratia. So the patient is placed in isolation. 02/29/2020 patient seen sleeping in bed, appears tired, not talking very much, he does wake up, and answer questions, she states she didn't sleep last night. Appears to be in no acute distress, sounds better less congested and wheezy on today's exam, with less congested breath sounds. He is on 35% trach collar, with a pulse ox of 97%, he is afebrile, remains on a combination of cefepime and Levaquin, ID service is following, his repeat sputum culture showed no growth. His wound on his right heel was also cultured, and the culture is pending at this time, preliminary Gram stain showed rare gram-positive cocci. Patient's tube feedings are on hold for surgical procedure today, patient is scheduled for tracheostomy change by Dr. Lawrence today 03/01/2020 Patient is seen in follow-up on the selective care unit. He is currently sitting up in a chair at the bedside. Awake and alert in no acute distress. He did undergo a change out of his tracheostomy tube yesterday. Size 8.0. Uncuffed. No shortness of breath. Continues with some copious secretions. He is maintaining good O2 saturations in the 90s on trach collar at 35% FiO2. Follow-up sputum cultures revealed no growth. He is continued on cefepime and Levaquin. Remains on Eliquis for anticoagulated. Remains on bronchodilators. NicoDerm patch in place. Objective - Vital Signs Vital signs: Vital Signs Temp 98 F 03/01/20 11:47 Pulse 69 03/01/20 11:47 Resp 18 03/01/20 11:47 BP 144/68 03/01/20 11:47 Pulse Ox 100 03/01/20 11:47 Intake & Output 02/29/20 03/01/20 03/01/20 18:59 06:59 18:59 Intake Total 200 0 Output Total 601 1425 400 Balance -401 -1425 -400 Weight 70 kg 63.8 kg Intake: IV 200 Tube Feeding 0 0 Output: Urine 600 1425 400 Estimated Blood Loss 1 Other: Voiding Method Bedside Commode Bedside Commode Urinal Urinal # Voids 3 1 # Bowel Movements 2 1 - Exam PHYSICAL EXAMINATION: GENERAL: The patient is alert and oriented x3, not in any acute distress. Well developed, well nourished. HEENT: Pupils are round and equally reacting to light. EOMI. No scleral icterus. No conjunctival pallor. Normocephalic, atraumatic. No pharyngeal erythema. No thyromegaly. CARDIOVASCULAR: S1 and S2 present. No murmurs, rubs, or gallops. PULMONARY: Chest is clear to auscultation, no wheezing or crackles. ABDOMEN: Soft, nontender, nondistended, normoactive bowel sounds. No palpable organomegaly. MUSCULOSKELETAL: No joint swelling or deformity. EXTREMITIES: No cyanosis, clubbing, or pedal edema. NEUROLOGICAL: Gross neurological examination did not reveal any focal deficits. SKIN: No rashes. - Labs CBC & Chem 7: 03/01/20 09:15 03/01/20 09:15 Labs: Abnormal Lab Results - Last 24 Hours (Table) 03/01/20 03/01/20 03/01/20 Range/Units 00:15 06:40 09:15 WBC 13.9 H (3.8-10.6) k/uL RBC 3.56 L (4.30-5.90) m/uL Hgb 10.9 L (13.0-17.5) gm/dL Hct 34.2 L (39.0-53.0) % Neutrophils # (Manual) 11.95 H (1.3-7.7) k/uL Lymphocytes # (Manual) 0.83 L (1.0-4.8) k/uL Potassium (3.5-5.1) mmol/L Glucose (74-99) mg/dL POC Glucose (mg/dL) 118 H 121 H (75-99) mg/dL Albumin (3.5-5.0) g/dL 03/01/20 03/01/20 Range/Units 09:15 11:39 WBC (3.8-10.6) k/uL RBC (4.30-5.90) m/uL Hgb (13.0-17.5) gm/dL Hct (39.0-53.0) % Neutrophils # (Manual) (1.3-7.7) k/uL Lymphocytes # (Manual) (1.0-4.8) k/uL Potassium 3.3 L (3.5-5.1) mmol/L Glucose 127 H (74-99) mg/dL POC Glucose (mg/dL) 131 H (75-99) mg/dL Albumin 3.3 L (3.5-5.0) g/dL Microbiology - Last 24 Hours (Table) 02/27/20 22:20 Gram Stain - Final Foot - Right Wound Culture - Final Assessment and Plan Assessment: Acute hypoxic respiratory failure due to acute tracheobronchitis Sputum culture is positive for staph aureus and Serratia. Repeat cultures negative so far. Suicidal ideation Depression. 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 repeat sputumcultures showed no growth so far. Patient is currently on vancomycin, cefepime and levofloxacin. Patient to be continued on breathing treatments and IV steroids. He is currently on Lopressor 100 mg twice a day and Cardizem 60 mg 3 times a day for rate control . Continue on Eliquis for anticoagulation. As the patient was suicidal, will continue with sitter at the bedside. Consulted ENT for possible Trach collar exchange.plan for tracheostomy x-rays tomorrow.tube feedings on hold due to nausea and vomiting. We will consider restarting. Continue with the rest of his current medication regimen. Overall prognosis is guarded. Further recommendations depending on the clinical course.
[2020-03-01] MEDS: MELATONIN 3 MG TABLET PO SCH (21:00)
[2020-03-01] MEDS: POTASSIUM CHLORIDE ER 20 MEQ TAB.ER PO SCH ×2 (21:01→23:02)
[2020-03-02 00:06] LABS: Glucose,Whole Blood 111 mg/dL (75-99)
[2020-03-02 06:10] LABS: Glucose,Whole Blood 125 mg/dL (75-99)
[2020-03-02] MEDS: IPRATROPIUM-ALBUTEROL 3 ML NEB INHALATION SCH ×4 (07:04→21:08)
[2020-03-02] MEDS: FORMOTEROL FUMARATE 20 MCG/2 ML NEBU INHALATION SCH ×2 (07:04→21:08)
[2020-03-02 08:04] LABS: African American GFR (CKD) >90 (>60 ml/min/1.73 sqM); Anion Gap 9 mmol/L; Blood Urea Nitrogen 11 mg/dL (9-20); Calcium 9.2 mg/dL (8.4-10.2); Carbon Dioxide 24 mmol/L (22-30); Chloride 105 mmol/L (98-107); Glucose 113 mg/dL (74-99); Non-African American GFR(CKD) >90 (>60 ml/min/1.73 sqM); Potassium 3.6 mmol/L (3.5-5.1); Sodium 138 mmol/L (137-145)
[2020-03-02] MEDS: APIXABAN 5 MG TAB PO SCH ×2 (09:19→21:23)
[2020-03-02] MEDS: QUEtiapine 50 MG TAB PO SCH ×2 (09:19→21:22)
[2020-03-02] MEDS: METOPROLOL TARTRATE 50 MG TAB PO SCH ×2 (09:19→21:22)
[2020-03-02] MEDS: ATORVASTATIN 20 MG TAB PO SCH (09:19)
[2020-03-02] MEDS: FAMOTIDINE 20 MG TAB PO SCH (09:19)
[2020-03-02] MEDS: THIAMINE 100 MG TAB PO SCH (09:19)
[2020-03-02] MEDS: SERTRALINE 50 MG TAB PO SCH (09:19)
[2020-03-02] MEDS: DILTIAZEM ORAL 60 MG TAB PO SCH ×3 (09:19→21:22)
[2020-03-02] MEDS: ANIDULAFUNGIN 100 MG in SODIUM CHLORIDE 0.9% 100 ML IVPB SCH (09:20)
[2020-03-02] MEDS: NICOTINE 14MG/24HR PATCH TRANSDERM SCH (09:20)
[2020-03-02] MEDS: LEVOFLOXACIN 750MG-D5W PMX 750 MG in DEXTROSE/WATER 1 150ML.BAG IVPB SCH ×2 (09:20→11:09)
[2020-03-02] MEDS: CEFEPIME 2 GM in SODIUM CHLORIDE 0.9% 100 ML IVPB SCH ×2 (09:20→21:23)
--- NOTE | 2020-03-02 11:20 | P.PN ---
Subjective Progress Note Date: 03/02/20 Principal diagnosis: Acute hypoxic respiratory failure secondary to acute tracheobronchitis. 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 Patient also had a PEG tube placed for nutritional support. Patient had a prolonged hospitalization back in December during which left vocal cord squamous cell carcinoma was diagnosed. His staging CTs did not reveal metastatic disease, PET scan on 02/05/2020 showed uptake only in the left laryngeal mass with max SUV of 12.5. Patient was discharged to [facility] following his hospitalization, and was discharged home sometime in mid January. He was due to start chemoradiation this coming Tuesday on 02/25/2020. However patient de veloped progressive cough, purulent sputum production, increasing shortness of breath, and chills, he was taken to the hospital to [facility]. Patient also was found to be in atrial fibrillation with RVR. He had symptoms of increased weakness and fatigue. COVID 19 was ruled out. Chest x-ray showed clearing of the left basilar pneumonia and no new focal consolidation. Labs showed a white blood cell, 12.1, hemoglobin of 15.5, sodium of 141, potassium is 3.7, chloride is 110, CO2 is 23, BUN 16 creatinine 0.79, pro calcitonin was low at 0.10, patient is covered with Zosyn for empiric antibiotic coverage, he was fluid resuscitated, he is awake and alert, dentition is appropriate, he is on trach collar at 6 L/m, and his pulse ox is 94%, afebrile, large amount of thick secretions is being suctioned out of his trach, and preliminary sputum Gram stain showed moderate epithelial cells, few gram-positive cocci, few gram- positive bacilli and rare gram-negative bacilli The patient is seen today 02/23/2020 in follow-up on the selective care unit. He is currently sitting up in a chair at the bedside. Awake and alert in no acute distress. He is maintaining good O2 saturations in the 90s on 35% trach collar. He's been afebrile. Hemodynamically stable. Sputum culture is positive for presumptive staph aureus/gram-negative bacilli. White count 13.1. Hemoglobin 10.2. Sodium 141. Potassium 3.2. Creatinine 0.79. He is currently on Zosyn. The patient is seen today 02/24/2020 in follow-up on the selective care unit. He is currently sitting up in bed. Awake and alert in no acute distress. Denies any worsening shortness of breath. He is maintaining O2 saturations in the 90s on 35% trach collar. He is afebrile. Sputum culture is positive for Staphylococcus aureus and Serratia marcescens. He is currently on Zosyn and Zyvox. White count 10.5. Hemoglobin 10.9. Creatinine 0.73. He remains on bronchodilators. Anticoagulated with Eliquis. NicoDerm patch in place. On 02/25/2020 a.m. seeing this patient in follow-up. Medical floor. The patient is having significant amount of rest or secretions in his quite congested cough noted considerable amount of mucus. He is previous cultures of shown a combination of MSSA and Serratia and the patient was given accommodation Zosyn and Levaquin. Nevertheless, the follow-up chest exit was obtained this mo rning shows increasing infiltration of the right lung and a small right-sided pleural effusion also developed on the right side. There is mild patchy density in the left medial left lung base as well. Based on all this, an antibiotic change will be needed. He is afebrile. He underwent a swallow evaluation today and the modified barium swallow showed normal swallowing with thin liquids and pudding thick consistency and there was no evidence of any aspiration or penetration during the examination. His white cell count is at 10.5. The rest of the electrodes are all within normal limits. On 02/26/2020 patient is seen in follow-up on selective care unit, patient is on cefepime and Levaquin for evidence of MSSA and Serratia marcescens, and we requested another sputum culture to be sent yesterday in view of patient's worsening chest x-ray results and continued copious secretions out of his tracheostomy. Patient is seen in follow-up today, she is resting in bed, he seems to be feeling down, he is not talking much, she remains on 6 L per trach collar, his pulse ox is 96%, he is afebrile, still having moderate to large amount of tracheal secretions. He is receiving nutrition via his PEG tube. Apparently patient had a modified barium swallow yesterday on 02/25/2020 which showed essentially normal swallowing with thin liquids and pudding thick consistency, without evidence of aspiration or penetration. Patient seems to be very depressed, and he has made comments indicating suicidal ideation, for that reason product safety technician was placed at the bedside and psychiatric services were consulted and patient was started on Zoloft. On 02/27/2020 patient seen in follow-up on selective care unit. He is resting in bed with a product safety technician at the bedside, seems to be very withdrawn, he was started on Zoloft by psychiatric services for depression, and making statements about suicidal ideations. Does not appear to be in any acute distress, he is on the trach collar at FiO2 of 35%, his pulse ox is 95-99%, still significant secretions out of his tracheostomy, he is afebrile, he yesterday we added vancomycin in addition to cefepime and Levaquin, a new sputum culture was sent and did not show any growth, his original sputum culture from 02/21/2020 showed MSSA and Serratia marcescens. ID service is following, lung sounds reveal diffuse rhonchi bilaterally. Patient is receiving tube feedings. Today's chest x-ray has been reviewed showing persistent right perihilar and right lower lobe infiltrate with small right-sided pleural effusion. On 02/28/2020 patient seen in follow-up on selective care unit, is awake and alert, oriented 3, he is given some simple answers to distress, seems to be talking a little bit more on today's exam. Denies any acute distress, still seems to be quite congested, rhonchorous, producing yellow to baker colored phlegm, he remains on accommodation cefepime, Levaquin and vancomycin, repeat sputum culture has shown no growth. Patient's right heel ulcer has been cultured, wound cultures are pending. No fever or chills, he is on the trach co llar with FiO2 of 35%, he has been started on Zoloft for depression, and a product safety technician remains at the bedside. We will repeat chest x-ray tomorrow. On 02/29/2020 patient seen in follow-up on selective care unit. He is sleeping in bed, appears tired, not talking very much, he does wake up, and answer questions, she states she didn't sleep last night. Appears to be in no acute distress, sounds better less congested and wheezy on today's exam, with less congested breath sounds. He is on 35% trach collar, with a pulse ox of 97%, he is afebrile, remains on a combination of cefepime and Levaquin, ID service is following, his repeat sputum culture showed no growth. His wound on his right h eel was also cultured, and the culture is pending at this time, preliminary Gram stain showed rare gram-positive cocci. Patient's tube feedings are on hold for surgical procedure today, patient is scheduled for tracheostomy change by Dr. Lawrence today at 12:00. The patient is seen today 03/01/2020 in follow-up on the selective care unit. He is currently sitting up in a chair at the bedside. Awake and alert in no acute distress. He did undergo a change out of his tracheostomy tube yesterday. Size 8.0. Uncuffed. No shortness of breath. Continues with some copious secretions. He is maintaining good O2 saturations in the 90s on trach collar at 35% FiO2. Follow-up sputum cultures revealed no growth. He is continued on cefepime and Levaquin. Remains on Eliquis for anticoagulated. Remains on bronchodilators. NicoDerm patch in place. The patient is seen today the 2019 in follow-up on the selective care unit. Currently resting in bed. Awake and alert in no acute distress. Maintaining O2 saturations in the 90s on 35% trach collar. Currently afebrile. Sputum culture was positive for MSSA and Serratia marcescens. Right heel cultures pending. Sodium 138. Potassium 3.6. Chloride 105. Bicarb 24. Creatinine 0.74. Currently on cefepime and Anidulafungin. Remains on bronchodilators. Anticoagulated with Eliquis. Objective - Vital Signs Vital signs: Vital Signs Temp 98.2 F 03/02/20 08:00 Pulse 80 03/02/20 11:07 Resp 18 03/02/20 08:00 BP 158/75 03/02/20 08:00 Pulse Ox 98 03/02/20 08:00 Intake & Output 03/01/20 03/02/20 03/02/20 18:59 06:59 18:59 Intake Total 0 500 0 Output Total 600 400 1 Balance -600 100 -1 Weight 64.5 kg Intake: Intake, IV Titration 500 Amount Anidulafungin 100 mg In 100 Sodium Chloride 0.9% 100 ml @ 84 mls/hr IVPB DAILY [facility] Rx#:[id number] Sodium Chloride 0.9% 1, 400 000 ml @ 40 mls/hr IV . Q24H [facility] Rx#:[id number] Tube Feeding 0 0 0 Output: Urine 600 400 Stool 1 Other: Voiding Method Bedside Commode Bedside Commode Bedside Commode # Voids 1 1 # Bowel Movements 1 2 - Exam GENERAL EXAM: Alert, pleasant, 64-year-old male patient, on trach collar, 35% FiO2, up in a chair at the bedside, comfortable in no apparent distress. HEAD: Normocephalic/atraumatic. EYES: Normal reaction of pupils, equal size. Conjunctiva pink, sclera white. NOSE: Clear with pink turbinates. THROAT: No erythema or exudates. NECK: No masses, no JVD, no thyroid enlargement, no adenopathy. Midline trach eostomy CHEST: No chest wall deformity. Symmetrical expansion. LUNGS: Equal air entry with some scattered rhonchi, but no wheeze, dullness. CVS: Regular rate and rhythm, normal S1 and S2, no gallops, no murmurs, no rubs ABDOMEN: Soft, nontender. No hepatosplenomegaly, normal bowel sounds, no guar ding or rigidity. PEG tube present, with tube feedings infusing EXTREMITIES: No clubbing, no edema, no cyanosis, 2+ pulses and upper and lower extremities. MUSCULOSKELETAL: Muscle strength and tone normal. SPINE: No scoliosis or deformity SKIN: No rashes CENTRAL NERVOUS SYSTEM: No focal deficits, tone is normal in all 4 extremities. PSYCHIATRIC: Alert and oriented -3. Appropriate affect. Intact judgment and insight. - Labs CBC & Chem 7: 03/01/20 09:15 03/02/20 06:33 Labs: Abnormal Lab Results - Last 24 Hours (Table) 03/01/20 03/01/20 03/01/20 Range/Units 09:15 11:39 16:42 Neutrophils # (Manual) 11.95 H (1.3-7.7) k/uL Lymphocytes # (Manual) 0.83 L (1.0-4.8) k/uL Glucose (74-99) mg/dL POC Glucose (mg/dL) 131 H 129 H (75-99) mg/dL 03/02/20 03/02/20 03/02/20 Range/Units 00:04 05:56 06:33 Neutrophils # (Manual) (1.3-7.7) k/uL Lymphocytes # (Manual) (1.0-4.8) k/uL Glucose 113 H (74-99) mg/dL POC Glucose (mg/dL) 111 H 125 H (75-99) mg/dL Assessment and Plan Assessment: #1. Acute hypoxic respiratory failure related to methicillin sensitive staph aureus and Serratia marcescens #2. Weakness, dehydration, increased phlegm production, cough, related to the above #3. New onset atrial fibrillation with rapid ventricular response on presentation, currently better controlled, possibly related to dehydration and sepsis #4. 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 Patient is due to start treatment on Tuesday on 02/25/2020 with hemotherapy and radiation. Tracheostomy tube changed out on 02/29/2020. #8.0. Uncuffed. #5. Previous history of EtOH abuse #6. History of right lower extremity DVT in 2018, patient is not a candidate for chronic anticoagulation, he is status post IVC filter placement #7. Underlying COPD #8. Ex-smoker Plan: The patient was seen and evaluated by Dr. Tabares Repeat chest x-ray Continue cefepime and bronchodilators Increase his activity as tolerated We'll continue to follow I, the cosigning physician, performed a history & physical examination of the patient. Lungs sounds with bilateral scattered rhonchi. Maintaining good O2 saturations in the 90s on 35% FiO2 via trach collar. I discussed the assessment and plan of care with my nurse practitioner, Sharifa Bennett. I attest to the above note as dictated by her.
--- NOTE | 2020-03-02 12:35 | XR ---
EXAMINATION TYPE: XR chest 1V portable DATE OF EXAM: 03/02/2020 HISTORY: pneumonia. REFERENCE: Previous study dated 02/29/2020. FINDINGS: There is a tracheostomy tube in place. Its tip overlies the tracheal air column in this sin gle frontal projection. Lung volumes are prominent. Heart size upper limits of normal. There continues to be a right-sided effusion. There is right basilar airspace disease. The left lung is clear. Overall aeration on the right has improved. IMPRESSION: IMPROVING RIGHT BASILAR INFILTRATE.
[2020-03-02 12:43] LABS: Glucose,Whole Blood 117 mg/dL (75-99)
[2020-03-02 17:15] LABS: Glucose,Whole Blood 129 mg/dL (75-99)
--- NOTE | 2020-03-02 18:09 | P.PN ---
Subjective Progress Note Date: 03/02/20 64-year-old male with a past medical history of laryngeal cancer, PE and DVT, status post trach and PEG, hypertension, hyperlipidemia, GERD who was transferred from [facility] for upper airway congestion cough and difficulty in breathing. As the patient was having increased secretions from his trach tube he is currently being treated for acute tracheobronchitis with Zosyn. ID Dr. Rasmussen on board and following the patient. Patient also has new onset atrial fibrillation for which cardiology is following him closely. Patient COVID 19 negative. Chest x-ray was showing clearing of left basilar pneumonia and no new focal consolidations. Patient had multiple changes in antibiotic regimens, nitially he was given Zyvox and Levofloxacin then later changed to Cefepime, Vano along with Levofloxacin. He was also suicidal and so Psychiatry services evaluated him and started him on Zoloft and Melatonin. Patient's sputum culture is positive for Staphylococcus aureus and Serratia. So the patient is placed in isolation. 02/29/2020 patient seen sleeping in bed, appears tired, not talking very much, he does wake up, and answer questions, she states she didn't sleep last night. Appears to be in no acute distress, sounds better less congested and wheezy on today's exam, with less congested breath sounds. He is on 35% trach collar, with a pulse ox of 97%, he is afebrile, remains on a combination of cefepime and Levaquin, ID service is following, his repeat sputum culture showed no growth. His wound on his right heel was also cultured, and the culture is pending at this time, preliminary Gram stain showed rare gram-positive cocci. Patient's tube feedings are on hold for surgical procedure today, patient is scheduled for tracheostomy change by Dr. Lawrence today 03/01/2020 Patient is seen in follow-up on the selective care unit. He is currently sitting up in a chair at the bedside. Awake and alert in no acute distress. He did undergo a change out of his tracheostomy tube yesterday. Size 8.0. Uncuffed. No shortness of breath. Continues with some copious secretions. He is maintaining good O2 saturations in the 90s on trach collar at 35% FiO2. Follow-up sputum cultures revealed no growth. He is continued on cefepime and Levaquin. Remains on Eliquis for anticoagulated. Remains on bronchodilators. NicoDerm patch in place. 03/02/2020 Patient is seen and evaluated in follow-up in selective care unit; Currently resting in bed. Awake and alert in no acute distress. Maintaining O2 s aturations in the 90s on 35% trach collar. Currently afebrile. Sputum culture was positive for MSSA and Serratia marcescens. Right heel cultures pending. Sodium 138. Potassium 3.6. Chloride 105. Bicarb 24. Creatinine 0.74. Currently on cefepime and Anidulafungin. Remains on bronchodilators. Anticoagulated with Eliquis. Pulmonary's following and recommending to continue cefepime and bronchodilators; patient will have repeat chest x-ray tomorrow morning; recommendations to follow Objective - Vital Signs Vital signs: Vital Signs Temp 98.2 F 03/02/20 08:00 Pulse 80 03/02/20 11:17 Resp 18 03/02/20 08:00 BP 158/75 03/02/20 08:00 Pulse Ox 98 03/02/20 08:00 Intake & Output 03/01/20 03/02/20 03/02/20 18:59 06:59 18:59 Intake Total 0 500 0 Output Total 600 400 1 Balance -600 100 -1 Weight 64.5 kg Intake: Intake, IV Titration 500 Amount Anidulafungin 100 mg In 100 Sodium Chloride 0.9% 100 ml @ 84 mls/hr IVPB DAILY [facility] Rx#:[id number] Sodium Chloride 0.9% 1, 400 000 ml @ 40 mls/hr IV . Q24H [facility] Rx#:[id number] Tube Feeding 0 0 0 Output: Urine 600 400 Stool 1 Other: Voiding Method Bedside Commode Bedside Commode Bedside Commode # Voids 1 1 # Bowel Movements 1 2 - Exam PHYSICAL EXAMINATION: GENERAL: The patient is alert and oriented x3, not in any acute distress. Well developed, well nourished. HEENT: Pupils are round and equally reacting to light. EOMI. No scleral icterus. No conjunctival pallor. Normocephalic, atraumatic. No pharyngeal erythema. No thyromegaly. CARDIOVASCULAR: S1 and S2 present. No murmurs, rubs, or gallops. PULMONARY: Chest is clear to auscultation, no wheezing or crackles. ABDOMEN: Soft, nontender, nondistended, normoactive bowel sounds. No palpable organomegaly. MUSCULOSKELETAL: No joint swelling or deformity. EXTREMITIES: No cyanosis, clubbing, or pedal edema. NEUROLOGICAL: Gross neurological examination did not reveal any focal deficits. SKIN: No rashes. - Labs CBC & Chem 7: 03/01/20 09:15 03/02/20 06:33 Labs: Abnormal Lab Results - Last 24 Hours (Table) 03/01/20 03/02/20 03/02/20 Range/Units 16:42 00:04 05:56 Glucose (74-99) mg/dL POC Glucose (mg/dL) 129 H 111 H 125 H (75-99) mg/dL 03/02/20 03/02/20 Range/Units 06:33 12:41 Glucose 113 H (74-99) mg/dL POC Glucose (mg/dL) 117 H (75-99) mg/dL Assessment and Plan Assessment: Acute hypoxic respiratory failure due to acute tracheobronchitis Sputum culture is positive for staph aureus and Serratia. Repeat cultures negative so far. Suicidal ideation Depression. 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 repeat sputumcultures showed no growth so far. Patient is currently on vancomycin, cefepime and levofloxacin. Patient to be continued on breathing treatments and IV steroids. He is currently on Lopressor 100 mg twice a day and Cardizem 60 mg 3 times a day for rate control . Continue on Eliquis for an ticoagulation. As the patient was suicidal, will continue with sitter at the bedside. Consulted ENT for possible Trach collar exchange.plan for tracheostomy x-rays tomorrow.tube feedings on hold due to nausea and vomiting. We will consider restarting. Continue with the rest of his current medication regimen. Overall prognosis is guarded. Further recommendations depending on the clinical course.
[2020-03-02] MEDS: SODIUM CHLORIDE 0.9% 1,000 ML IV SCH ×2 (18:14→21:24)
[2020-03-02 20:28] LABS: Glucose,Whole Blood 120 mg/dL (75-99)
[2020-03-02] MEDS: MELATONIN 3 MG TABLET PO SCH ×2 (21:23→21:42)
--- NOTE | 2020-03-03 00:12 | PN ---
PROGRESS NOTE DATE OF SERVICE: 03/02/2020 REASON FOR FOLLOWUP: Pneumonia. INTERVAL HISTORY: The patient is currently afebrile. Patient is breathing comfortably. Denies having any chest pain or shortness of breath or cough. No worsening cough. No abdominal pain or diarrhea. PHYSICAL EXAMINATION: Blood pressure 118/56, pulse of 78, temperature 97.9. He is 95% on 6 L trach collar. General description is an elderly male up in the bed in no distress. RESPIRATORY SYSTEM: Unlabored breathing, decreased intensity of breath sounds. No wheeze. HEART: S1, S2. Regular rate and rhythm. ABDOMEN: Soft, no tenderness. LABS: Creatinine 0.74. DIAGNOSTIC IMPRESSION AND PLAN: 1. Patient with pneumonia. Sputum has been positive for Serratia and MSSA. Patient is currently on cefepime. Plan for a total of 2-week course of antibiotic include days of antibiotic he received here. Continue supportive care. 2. Right heel wound. Local wound care is ordered. No evidence of any cellulitis. MMODL / IJN: [id number] /
[2020-03-03 00:23] LABS: Glucose,Whole Blood 132 mg/dL (75-99)
[2020-03-03 00:58] LABS: Magnesium 1.8 mg/dL (1.6-2.3); Potassium 3.5 mmol/L (3.5-5.1)
[2020-03-03 06:01] LABS: Glucose,Whole Blood 141 mg/dL (75-99)
[2020-03-03] MEDS: IPRATROPIUM-ALBUTEROL 3 ML NEB INHALATION SCH ×4 (07:15→19:16)
[2020-03-03] MEDS: FORMOTEROL FUMARATE 20 MCG/2 ML NEBU INHALATION SCH ×2 (07:15→19:16)
[2020-03-03 07:18] LABS: African American GFR (CKD) >90 (>60 ml/min/1.73 sqM); Anion Gap 7 mmol/L; Blood Urea Nitrogen 12 mg/dL (9-20); Carbon Dioxide 23 mmol/L (22-30); Chloride 107 mmol/L (98-107); Glucose 123 mg/dL (74-99); Non-African American GFR(CKD) >90 (>60 ml/min/1.73 sqM); Potassium 3.5 mmol/L (3.5-5.1); Sodium 137 mmol/L (137-145)
[2020-03-03] MEDS ORDERED: Potassium Replacement Protocol 1 EACH MISC MISCELLANE PRN (07:30)
[2020-03-03] MEDS: DILTIAZEM ORAL 60 MG TAB PO SCH ×3 (09:42→22:40)
[2020-03-03] MEDS: FAMOTIDINE 20 MG TAB PO SCH (09:42)
[2020-03-03] MEDS: POTASSIUM CHLORIDE ER 20 MEQ TAB.ER PO SCH ×2 (09:42→11:55)
[2020-03-03] MEDS: APIXABAN 5 MG TAB PO SCH ×2 (09:42→22:40)
[2020-03-03] MEDS: ATORVASTATIN 20 MG TAB PO SCH (09:42)
[2020-03-03] MEDS: QUEtiapine 50 MG TAB PO SCH ×2 (09:43→22:40)
[2020-03-03] MEDS: METOPROLOL TARTRATE 50 MG TAB PO SCH ×2 (09:43→22:40)
[2020-03-03] MEDS: CEFEPIME 2 GM in SODIUM CHLORIDE 0.9% 100 ML IVPB SCH ×2 (09:43→22:39)
[2020-03-03] MEDS: SERTRALINE 50 MG TAB PO SCH (09:43)
[2020-03-03] MEDS: NICOTINE 14MG/24HR PATCH TRANSDERM SCH (09:44)
[2020-03-03] MEDS: THIAMINE 100 MG TAB PO SCH (11:54)
[2020-03-03] MEDS: ANIDULAFUNGIN 100 MG in SODIUM CHLORIDE 0.9% 100 ML IVPB SCH (11:55)
[2020-03-03 12:44] LABS: Glucose,Whole Blood 133 mg/dL (75-99)
--- NOTE | 2020-03-03 15:16 | P.PN ---
Subjective Progress Note Date: 03/03/20 Principal diagnosis: MSSA and Serratia related pneumonia, A. 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 Patient also had a PEG tube placed for nutritional support. Patient had a prolonged hospitalization back in December during which left vocal cord squamous cell carcinoma was diagnosed. His staging CTs did not reveal metastatic disease , PET scan on 02/05/2020 showed uptake only in the left laryngeal mass with max SUV of 12.5. Patient was discharged to [facility] following his hospitalization, and was discharged home sometime in mid January. He was due to start chemoradiation this coming Tuesday on 02/25/2020. However patient developed progressive cough, purulent sputum production, increasing shortness of breath, and chills, he was taken to the hospital to [facility]. Patient also was found to be in atrial fibrillation with RVR. He had symptoms of increased weakness and fatigue. COVID 19 was ruled out. Chest x-ray showed clearing of the left basilar pneumonia and no new focal consolidation. Labs showed a white blood cell, 12.1, hemoglobin of 15.5, sodium of 141, potassium is 3.7, chloride is 110, CO2 is 23, BUN 16 creatinine 0.79, pro calcitonin was low at 0.10, patient is covered with Zosyn for empiric antibiotic coverage, he was fluid resuscitated, he is awake and alert, dentition is appropriate, he is on trach collar at 6 L/m, and his pulse ox is 94%, afebrile, large amount of thick secretions is being suctioned out of his trach, and preliminary sputum Gram stain showed moderate epithelial cells, few gram-positive cocci, few gram- positive bacilli and rare gram-negative bacilli The patient is seen today 02/23/2020 in follow-up on the selective care unit. He is currently sitting up in a chair at the bedside. Awake and alert in no acute distress. He is maintaining good O2 saturations in the 90s on 35% trach collar. He's been afebrile. Hemodynamically stable. Sputum culture is positive for presumptive staph aureus/gram-negative bacilli. White count 13.1. Hemoglobin 10.2. Sodium 141. Potassium 3.2. Creatinine 0.79. He is currently on Zosyn. The patient is seen today 02/24/2020 in follow-up on the selective care unit. He is currently sitting up in bed. Awake and alert in no acute distress. Denies any worsening shortness of breath. He is maintaining O2 saturations in the 90s on 35% trach collar. He is afebrile. Sputum culture is positive for Staphylococcus aureus and Serratia marcescens. He is currently on Zosyn and Zyvox. White count 10.5. Hemoglobin 10.9. Creatinine 0.73. He remains on bronchodilators. Anticoagulated with Eliquis. NicoDerm patch in place. On 02/25/2020 a.m. seeing this patient in follow-up. Medical floor. The patient is having significant amount of rest or secretions in his quite congested cough noted considerable amount of mucus. He is previous cultures of shown a combination of MSSA and Serratia and the patient was given accommodation Zosyn and Levaquin. Nevertheless, the follow-up chest exit was obtained this morning shows increasing infiltration of the right lung and a small right-sided pleural effusion also developed on the right side. There is mild patchy density in the left medial left lung base as well. Based on all this, an antibiotic change will be needed. He is afebrile. He underwent a swallow evaluation today and the modified barium swallow showed normal swallowing with thin liquids and pudding thick consistency and there was no evidence of any aspiration or penetration during the examination. His white cell count is at 10.5. The rest of the electrodes are all within normal limits. On 02/26/2020 patient is seen in follow-up on selective care unit, patient is on cefepime and Levaquin for evidence of MSSA and Serratia marcescens, and we requested another sputum culture to be sent yesterday in view of patient's worsening chest x-ray results and continued copious secretions out of his trache ostomy. Patient is seen in follow-up today, she is resting in bed, he seems to be feeling down, he is not talking much, she remains on 6 L per trach collar, his pulse ox is 96%, he is afebrile, still having moderate to large amount of tracheal secretions. He is receiving nutrition via his PEG tube. Apparently patient had a modified barium swallow yesterday on 02/25/2020 which showed essentially normal swallowing with thin liquids and pudding thick consistency, without evidence of aspiration or penetration. Patient seems to be very depressed, and he has made comments indicating suicidal ideation, for that reason safety and security officer was placed at the bedside and psychiatric services were consulted and patient was started on Zoloft. On 02/27/2020 patient seen in follow-up on selective care unit. He is resting in bed with a safety and security officer at the bedside, seems to be very withdrawn, he was started on Zoloft by psychiatric services for depression, and making statements about suicidal ideations. Does not appear to be in any acute distress, he is on the trach collar at FiO2 of 35%, his pulse ox is 95-99%, still significant secretions out of his tracheostomy, he is afebrile, he yesterday we added vancomycin in addition to cefepime and Levaquin, a new sputum culture was sent and did not show any growth, his original sputum culture from 02/21/2020 showed MSSA and Serratia marcescens. ID service is following, lung sounds reveal diffuse rhonchi bilaterally. Patient is receiving tube feedings. Today's chest x-ray has been reviewed showing persistent right perihilar and right lower lobe infiltrate with small right-sided pleural effusion. On 02/28/2020 patient seen in follow-up on selective care unit, is awake and alert, oriented 3, he is given some simple answers to distress, seems to be talking a little bit more on today's exam. Denies any acute distress, still seems to be quite congested, rhonchorous, producing yellow to baker colored phlegm, he remains on accommodation cefepime, Levaquin and vancomycin, repeat sputum culture has shown no growth. Patient's right heel ulcer has been cultured, wound cultures are pending. No fever or chills, he is on the trach collar with FiO2 of 35%, he has been started on Zoloft for depression, and a safety and security officer remains at the bedside. We will repeat chest x-ray tomorrow. On 02/29/2020 patient seen in follow-up on selective care unit. He is sleeping in bed, appears tired, not talking very much, he does wake up, and answer qu estions, she states she didn't sleep last night. Appears to be in no acute distress, sounds better less congested and wheezy on today's exam, with less congested breath sounds. He is on 35% trach collar, with a pulse ox of 97%, he is afebrile, remains on a combination of cefepime and Levaquin, ID service is following, his repeat sputum culture showed no growth. His wound on his right heel was also cultured, and the culture is pending at this time, preliminary Gram stain showed rare gram-positive cocci. Patient's tube feedings are on hold for surgical procedure today, patient is scheduled for tracheostomy change by Dr. Lawrence today at 12:00. On 03/03/2020 patient seen in follow-up on selective care unit, she is resting quietly in bed, appears to be in no acute distress, he is on trach collar with FiO2 of 35% pulse ox is 98%, low-grade fever this morning, 99.1F, hemodynamically stable, no altered mentation. He is on combination of cefepime, and Eraxis his sputum cultures showed MSSA and Serratia marcescens, his right heel wound showed Yodit glabrata. He is tolerating tube feedings, lung sounds reveal some scattered rhonchi, yesterday's chest x-ray showed improving right b asilar infiltrate. CBC was done today, his BMP revealed electrolytes and renal profile within normal limits. Objective - Vital Signs Vital signs: Vital Signs Temp 99.1 F 03/03/20 09:35 Pulse 72 03/03/20 10:48 Resp 18 03/03/20 09:35 BP 138/67 03/03/20 09:35 Pulse Ox 98 03/03/20 09:35 Intake & Output 03/02/20 03/03/20 03/03/20 18:59 06:59 18:59 Intake Total 0 0 0 Output Total 403 430 Balance -403 -430 0 Weight 68 kg Intake: Tube Feeding 0 0 0 Output: Urine 400 320 Stool 3 110 Other: Voiding Method Bedside Commode Bedside Commode # Voids 1 1 # Bowel Movements 1 - Exam GENERAL EXAM: Alert, very withdrawn, 64-year-old male patient, on trach collar, 35% FiO2, with a pulse ox of 99% comfortable in no apparent distress. poke in is at the bedside for suicidal precautions HEAD: Normocephalic/atraumatic. EYES: Normal reaction of pupils, equal size. Conjunctiva pink, sclera white. NOSE: Clear with pink turbinates. THROAT: No erythema or exudates. NECK: No masses, no JVD, no thyroid enlargement, no adenopathy. Midline tracheostomy CHEST: No chest wall deformity. Symmetrical expansion. LUNGS: Equal air entry with some scattered rhonchi, but no wheeze, dullness. CVS: Regular rate and rhythm, normal S1 and S2, no gallops, no murmurs, no rubs ABDOMEN: Soft, nontender. No hepatosplenomegaly, normal bowel sounds, no guarding or rigidity. PEG tube present, with tube feedings infusing EXTREMITIES: No clubbing, no edema, no cyanosis, 2+ pulses and upper and lower extremities. MUSCULOSKELETAL: Muscle strength and tone normal. SPINE: No scoliosis or deformity SKIN: No rashes CENTRAL NERVOUS SYSTEM: No focal deficits, tone is normal in all 4 extremities. PSYCHIATRIC: Alert and oriented -3. Appropriate affect. Intact judgment and insight. - Labs CBC & Chem 7: 03/01/20 09:15 03/03/20 06:37 Labs: Abnormal Lab Results - Last 24 Hours (Table) 03/02/20 03/02/20 03/03/20 Range/Units 16:52 20:27 00:22 Glucose (74-99) mg/dL POC Glucose (mg/dL) 129 H 120 H 132 H (75-99) mg/dL 03/03/20 03/03/20 03/03/20 Range/Units 06:00 06:37 12:28 Glucose 123 H (74-99) mg/dL POC Glucose (mg/dL) 141 H 133 H (75-99) mg/dL Microbiology - Last 24 Hours (Table) 02/27/20 22:20 Anaerobic Culture - Final Heel - Right Yodit glabrata Assessment and Plan Plan: #1. Acute hypoxic respiratory failure related to methicillin sensitive staph aureus and Serratia marcescens, nevertheless, there is worsening of the right lung infiltrate and today's chest x-ray and there is also development of a small right-sided pleural effusion addition to increase rest or secretions on examination. The patient started off with symptoms of tracheal bronchitis and initial chest x-ray was clear and subsequently developed extensive infiltration of the right lung. He was on a, initial Zosyn and Levaquin and vancomycin On 02/27/2020 patient continues on FiO2 of 35% per trach collar, still significantly congested, and there is large amount of secretions out of his tracheostomy, another sputum sample was sent yesterday and has shown no growth, remains on combination of cefepime Levaquin and vancomycin On 02/29/2020 patient remains on 35% trach collar, maintaining stable saturations, less congested and having less secretions out of his tracheostomy. He is going for tracheostomy change today on 02/29/[address] Lawrence. Repeat sputum culture showed no growth. Chest x-ray shows persistent right-sided consolidation and pleural effusion On 03/03/2020 remains on 35% trach collar, maintaining stable saturations, cur rently on combination of cefepime and Eraxis for MSSA and Serratia pneumonia, chest x-ray shows improving right basilar infiltrate #2. Weakness, dehydration, increased phlegm production, cough, related to the above #3. New onset atrial fibrillation with rapid ventricular response on presentation, currently better controlled, possibly related to dehydration and sepsis #4. 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 Patient is due to start treatment on Tuesday on 02/25/2020 with hemotherapy and radiation #5. Previous history of EtOH abuse #6. History of right lower extremity DVT in 2018, patient is not a candidate for chronic anticoagulation, he is status post IVC filter placement #7. Underlying COPD #8. Ex-smoker #9. Depression, suicidal ideation Plan: Continue current antibiotics, patient is currently on a combination of cefepime and Eraxis for MSSA and Serratia pneumonia, his chest x-ray shows improving right basilar infiltrate, pulmonary toileting, continue breathing treatments, patient is afebrile, no altered mentation, tolerating tube feedings, obtain chest x-ray in the morning I performed a history & physical examination of the patient and discussed their management with my nurse practitioner, Marifer Hernández. I reviewed the nurse practitioner's note and agree with the documented findings and plan of care. Lung sounds are positive for diminished breath sounds, scattered rhonchi throughout the lung mcgovern. The findings and the impression was discussed with the patient. I attest to the documentation by the nurse practitioner. Time with Patient: Less than 30
--- NOTE | 2020-03-03 15:20 | PN ---
PROGRESS NOTE DATE OF SERVICE: 03/03/2020 REASON FOR FOLLOWUP: Pneumonia. INTERVAL HISTORY: The patient is currently afebrile. The patient is breathing comfortably. He is still sleepy and lethargic and did not provide any history. the bedside. PHYSICAL EXAMINATION: Blood pressure is 138/67, pulse of 72, temperature 99.1. He is 98% on trach collar. General description is a middle-aged male lying in bed in no distress. RESPIRATORY SYSTEM: Some coarse breath sounds bilaterally. No wheeze. HEART: S1, S2. Regular rate and rhythm. ABDOMEN: Soft. No tenderness. LABS: BUN of 12, creatinine 0.80. DIAGNOSTIC IMPRESSION AND PLAN: 1. Patient with pneumonia. Sputum has been positive for serratia and MSSA. The patient is covered cefepime. X-ray shows improving right basilar infiltrate. To continue with IV cefepime for another week and continue supportive care. 2. Patient with right heel wound. Local wound care to continue. Ulcer culture with Yodit glabrata, likely colonizer, and no need for any systemic antifungal at this point. MMODL / IJN: [id number] /
[2020-03-03 17:58] LABS: Glucose,Whole Blood 124 mg/dL (75-99)
[2020-03-03 20:54] LABS: Glucose,Whole Blood 112 mg/dL (75-99)
[2020-03-03] MEDS: MELATONIN 3 MG TABLET PO SCH (22:40)
--- NOTE | 2020-03-03 23:22 | P.PN ---
Subjective Progress Note Date: 03/03/20 Principal diagnosis: Acute hypoxic respiratory failure Mr. Laurent is a 64-year-old male with a past medical history of laryngeal cancer, PE and DVT, status post trach and PEG, hypertension, hyperlipidemia, GERD who was transferred from [facility] for upper airway congestion cough and difficulty in breathing. As the patient was having increased secretions from his trach tube he is currently being treated for acute tracheobronchitis with Zosyn. ID Dr. Rasmussen on board and following the patient. Patient also has new onset atrial fibrillation for which cardiology is following him closely. Patient COVID 19 negative. Chest x-ray was showing clearing of left basilar p neumonia and no new focal consolidations. Patient had multiple changes in antibiotic regimens, nitially he was given Zyvox and Levofloxacin then later changed to Cefepime, Vano along with Levofloxacin. He was also suicidal and so Psychiatry services evaluated him and started him on Zoloft and Melatonin. Patient's sputum culture is positive for Staphylococcus aureus and Serratia. So the patient is placed in isolation. On 02/26/2020 - sitter at bed side as he was having suicidal ideation. He had a CXR done that was worsening , so repeat sputum cultures are obtained.As per discussions with nursing staff, his secretions have been copious and causing discomfort , so ENT consulted. He is on 6 L per trach collar, his pulse ox is 96%, he is afebrile. Patient had a modified barium swallow yesterday on 02/25/2020 which showed normal swallowing with thin liquids and pudding thick consistency, without evidence of aspiration or penetration. Patient is still very depressed, and he was suicidal couple of days back. 02/27/2020 Patient is currently lying in the bedcomfortably. Patient did have nausea and episodes of vomiting this morning. 2 feedings on hold. Patient is currently on trach collar with FiO2 of 30% and pulse ox 95%. Still having some secretions from the tracheostomy tube. Currently being continued on antibiotics. New sputum culture showed no growth so far. ID is following. 2 feedings on hold due to nausea vomiting and monitor residual. Patient is being scheduled for tracheostomy accidents tomorrow. Chest x-ray showed persistent right perihilar and right lower lobeinfiltratewith small right-sided pleural effusion. Pulmonary is following. 02/28/2020 Patient is currently lying in the bed comfortably. Awake alert and oriented x3. More awake and able to communicate slowly. Still having thick yellowish sputum coming from the tracheostomy tube. Currently weaning antibiotics in the form of cefepime, vancomycin and Levaquin. Repeat sputum cultures are negative for any growth. Otherwise patient has been feeling well afebrile. Planning for tracheostomy exchange tomorrow. Patient is being continued antidepressants in the form of Zoloft. Continued on bedside sitter. Tube feedings restarted and is tolerating. Patient did have a bowel movement yesterday. No complaints of chest pain or worsening shortness of breath. No episodes of vomiting today. 03/03/2020 Patient is currently lying in the bed comfortably. Denied any complaints of abdominal pain. No chest pain or shortness breath. Currently on trach collar with FiO2 35%. Otherwise sputum culture showed MSSA, Serratia marcescens and Yodit glabrata. Patient is currently on cefepime and Eraxis. ID and pulmonary is following. Chest x-ray showed improving right basilar infiltrate. Laboratory data showed potassium 3.5, BUN 12 and creatinine 0.8 Patient has been afebrile and tolerating PEG tube feeding. Active Medications Albuterol Sulfate (Ventolin Nebulized) 2.5 mg INHALATION RT-Q2H PRN PRN Reason: Shortness Of Breath Or Wheezing Last Admin: 02/29/20 14:01 Dose: 2.5 mg Documented by: Albuterol/Ipratropium (Duoneb 0.5 Mg-3 Mg/3 Ml Soln) 3 ml INHALATION RT-QID [facility] Last Admin: 03/03/20 19:16 Dose: 3 ml Documented by: Apixaban (Eliquis) 5 mg PO BID [facility] Last Admin: 03/03/20 22:40 Dose: 5 mg Documented by: Atorvastatin Calcium (Lipitor) 20 mg PO DAILY [facility] Last Admin: 03/03/20 09:42 Dose: 20 mg Documented by: Diltiazem HCl (Cardizem Oral) 60 mg PO TID [facility] Last Admin: 03/03/20 22:40 Dose: 60 mg Documented by: Famotidine (Pepcid) 20 mg PO DAILY [facility] Last Admin: 03/03/20 09:42 Dose: 20 mg Documented by: Formoterol Fumarate (Perforomist) 20 mcg INHALATION RT-BID [facility] Last Admin: 03/03/20 19:16 Dose: 20 mcg Documented by: Sodium Chloride (Saline 0.9%) 1,000 mls @ 40 mls/hr IV .Q24H [facility] Last Admin: 03/02/20 21:24 Dose: 40 mls/hr Documented by: Cefepime HCl 2 gm/ Sodium (Chloride) 100 mls @ 200 mls/hr IVPB Q12HR [facility] Last Admin: 03/03/20 22:39 Dose: 200 mls/hr Documented by: Anidulafungin 100 mg/ Sodium (Chloride) 130 mls @ 84 mls/hr IVPB DAILY [facility] Last Admin: 03/03/20 11:55 Dose: 84 mls/hr Documented by: Melatonin (Melatonin) 6 mg PO HS [facility] Last Admin: 03/03/20 22:40 Dose: 6 mg Documented by: Metoclopramide HCl (Reglan) 5 mg IVP Q6HR PRN PRN Reason: Nausea And Vomiting Metoprolol Tartrate (Lopressor) 100 mg PO BID [facility] Last Admin: 03/03/20 22:40 Dose: 100 mg Documented by: Miscellaneous Information (Potassium Per Protocol) 1 each MISCELLANE DAILY PRN; Protocol PRN Reason: Per Protocol Nicotine (Habitrol 14mg/24hr Patch) 1 patch TRANSDERM DAILY [facility] Last Admin: 03/03/20 09:44 Dose: 1 patch Documented by: Quetiapine Fumarate (Seroquel) 50 mg PO BID [facility] Last Admin: 03/03/20 22:40 Dose: 50 mg Documented by: Sertraline HCl (Zoloft) 50 mg PO DAILY [facility] Last Admin: 03/03/20 09:43 Dose: 50 mg Documented by: Thiamine HCl (Vitamin B-1) 100 mg PO DAILY@1200 [facility] Last Admin: 03/03/20 11:54 Dose: 100 mg Documented by: Objective - Vital Signs Vital signs: Vital Signs Temp 98.8 F 03/03/20 15:55 Pulse 72 03/03/20 19:39 Resp 18 03/03/20 15:55 BP 134/60 03/03/20 15:55 Pulse Ox 96 03/03/20 15:55 Intake & Output 03/03/20 03/03/20 03/04/20 06:59 18:59 06:59 Intake Total 0 0 Output Total 430 600 Balance -430 -600 Weight 68 kg Intake: Tube Feeding 0 0 Output: Urine 320 600 Stool 110 Other: Voiding Method Bedside Commode # Voids 1 2 # Bowel Movements 1 1 - Exam PHYSICAL EXAMINATION: GENERAL: The patient is alert and oriented x3, thin built appears , no acute distress HEENT: Pupils are round and equally reacting to light. EOMI. No scleral icterus. Mild pallor. Excoriations of skin around the trach collar CARDIOVASCULAR: S1 and S2 present. No added sounds. PULMONARY: Trache collar in place bilateral rhonchi , decreased air entry into bilateral lung mcgovern. ABDOMEN: Soft, nontender, nondistended, normoactive bowel sounds. PEG tube in place. MUSCULOSKELETAL: No joint swelling or deformity. EXTREMITIES: Mild edema. Right heel ulcer. Left lower extremity bigger in girth than right. NEUROLOGICAL: Gross neurological examination did not reveal any focal deficits PSYCHIATRIC: Depressed - Labs CBC & Chem 7: 03/01/20 09:15 03/03/20 17:15 Labs: Abnormal Lab Results - Last 24 Hours (Table) 03/02/20 03/03/20 03/03/20 Range/Units 20:27 00:22 06:00 Glucose (74-99) mg/dL POC Glucose (mg/dL) 120 H 132 H 141 H (75-99) mg/dL 03/03/20 03/03/20 03/03/20 Range/Units 06:37 12:28 17:57 Glucose 123 H (74-99) mg/dL POC Glucose (mg/dL) 133 H 124 H (75-99) mg/dL Microbiology - Last 24 Hours (Table) 02/27/20 22:20 Anaerobic Culture - Final Heel - Right Yodit glabrata Assessment and Plan Assessment: ASSESSMENT Acute hypoxic respiratory failure due to acute tracheobronchitis Sputum culture is positive for staph aureus and Serratia and yodit. Suicidal ideation Depression. 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 repeat sputumcultures showed yodit. Patient is currently on van comycin, cefepime and levofloxacin----> Cefepime and Eraxis. Patient to be co ntinued on breathing treatments and IV steroids. He is currently on Lopressor 100 mg twice a day and Cardizem 60 mg 3 times a day for rate control . Continue on Eliquis for anticoagulation. Continue with PEG tube feeding as tolerated. Continue with the rest of his current medication regimen. Overall prognosis is guarded. Further recommendations depending on the clinical course. Time with Patient: Greater than 30
[2020-03-04 06:12] LABS: Glucose,Whole Blood 137 mg/dL (75-99)
[2020-03-04 06:40] LABS: African American GFR (CKD) >90 (>60 ml/min/1.73 sqM); Anion Gap 7 mmol/L; Blood Urea Nitrogen 13 mg/dL (9-20); Calcium 9.4 mg/dL (8.4-10.2); Carbon Dioxide 28 mmol/L (22-30); Chloride 104 mmol/L (98-107); Glucose 116 mg/dL (74-99); Non-African American GFR(CKD) >90 (>60 ml/min/1.73 sqM); Potassium 3.5 mmol/L (3.5-5.1); Sodium 139 mmol/L (137-145)
[2020-03-04 07:16] LABS: Basophils % (A) 0 %; Eosinophils # (A) 0.4 k/uL (0-0.7); Eosinophils % (A) 4 %; HCT 33.4 % (39.0-53.0); HGB 10.7 gm/dL (13.0-17.5); Hypochromasia Slight; Lymphocytes # (A) 1.3 k/uL (1.0-4.8); Lymphocytes % (A) 13 %; MCH 30.4 pg (25.0-35.0); MCHC 31.9 g/dL (31.0-37.0); MCV 95.3 fL (80.0-100.0); Mean Platelet Volume 9.5; Monocytes # (A) 0.8 k/uL (0-1.0); Monocytes % (A) 8 %; Neutrophils # (A) 7.4 k/uL (1.3-7.7); Neutrophils % (A) 73 %; Platelet Count 251 k/uL (150-450); RBC 3.51 m/uL (4.30-5.90); RDW 14.2 % (11.5-15.5); WBC 10.1 k/uL (3.8-10.6)
--- NOTE | 2020-03-04 07:27 | XR ---
EXAMINATION TYPE: XR chest 1V portable DATE OF EXAM: 03/04/2020 CLINICAL HISTORY: Right lung pneumonia progress study. History of laryngeal cancer. TECHNIQUE: Single AP portable upright view of the chest is obtained. COMPARISON: Chest x-ray from 2 days earlier and older studies. CT chest January 03, 2020. FINDINGS: Stable tracheostomy tube. Background chronic emphysematous change with azygos lobe/fissure less well seen on current study. Persistent dense right basilar opacity and peripheral right upper l sulma opacity. Patient remains rotated to the right on current study. Left lung remains clear. Cardiac silhouette size remains within normal limits. Osseous structures are intact. Partial visualization of IVC filter in the mid abdomen inferiorly on image. IMPRESSION: Background chronic emphysematous change with persistent small right pleural effusion and associated right basilar acute infiltrate and atelectasis and lateral right upper to midlung acute in filtrate and/or edema. No significant change from most recent x-ray 2 days earlier.
[2020-03-04] MEDS: FORMOTEROL FUMARATE 20 MCG/2 ML NEBU INHALATION SCH ×2 (08:48→20:05)
[2020-03-04] MEDS: IPRATROPIUM-ALBUTEROL 3 ML NEB INHALATION SCH ×4 (08:48→20:05)
[2020-03-04] MEDS: ATORVASTATIN 20 MG TAB PO SCH (09:32)
[2020-03-04] MEDS: METOPROLOL TARTRATE 50 MG TAB PO SCH ×2 (09:32→20:54)
[2020-03-04] MEDS: ANIDULAFUNGIN 100 MG in SODIUM CHLORIDE 0.9% 100 ML IVPB SCH (09:32)
[2020-03-04] MEDS: APIXABAN 5 MG TAB PO SCH ×2 (09:33→20:54)
[2020-03-04] MEDS: THIAMINE 100 MG TAB PO SCH (09:33)
[2020-03-04] MEDS: SERTRALINE 50 MG TAB PO SCH (09:33)
[2020-03-04] MEDS: NICOTINE 14MG/24HR PATCH TRANSDERM SCH (09:33)
[2020-03-04] MEDS: CEFEPIME 2 GM in SODIUM CHLORIDE 0.9% 100 ML IVPB SCH ×2 (09:33→20:54)
[2020-03-04] MEDS: QUEtiapine 50 MG TAB PO SCH ×2 (09:33→20:54)
[2020-03-04] MEDS: FAMOTIDINE 20 MG TAB PO SCH (09:33)
[2020-03-04] MEDS: DILTIAZEM ORAL 60 MG TAB PO SCH ×3 (09:33→20:54)
[2020-03-04 11:55] LABS: Glucose,Whole Blood 144 mg/dL (75-99)
--- NOTE | 2020-03-04 13:44 | P.PN ---
Subjective Progress Note Date: 03/04/20 Principal diagnosis: MSSA and Serratia related pneumonia, A. 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 Patient also had a PEG tube placed for nutritional support. Patient had a prolonged hospitalization back in December during which left vocal cord squamous cell carcinoma was diagnosed. His staging CTs did not reveal metastatic disease , PET scan on 02/05/2020 showed uptake only in the left laryngeal mass with max SUV of 12.5. Patient was discharged to [facility] following his hospitalization, and was discharged home sometime in mid January. He was due to start chemoradiation this coming Tuesday on 02/25/2020. However patient developed progressive cough, purulent sputum production, increasing shortness of breath, and chills, he was taken to the hospital to [facility]. Patient also was found to be in atrial fibrillation with RVR. He had symptoms of increased weakness and fatigue. COVID 19 was ruled out. Chest x-ray showed clearing of the left basilar pneumonia and no new focal consolidation. Labs showed a white blood cell, 12.1, hemoglobin of 15.5, sodium of 141, potassium is 3.7, chloride is 110, CO2 is 23, BUN 16 creatinine 0.79, pro calcitonin was low at 0.10, patient is covered with Zosyn for empiric antibiotic coverage, he was fluid resuscitated, he is awake and alert, dentition is appropriate, he is on trach collar at 6 L/m, and his pulse ox is 94%, afebrile, large amount of thick secretions is being suctioned out of his trach, and preliminary sputum Gram stain showed moderate epithelial cells, few gram-positive cocci, few gram- positive bacilli and rare gram-negative bacilli The patient is seen today 02/23/2020 in follow-up on the selective care unit. He is currently sitting up in a chair at the bedside. Awake and alert in no acute distress. He is maintaining good O2 saturations in the 90s on 35% trach collar. He's been afebrile. Hemodynamically stable. Sputum culture is positive for presumptive staph aureus/gram-negative bacilli. White count 13.1. Hemoglobin 10.2. Sodium 141. Potassium 3.2. Creatinine 0.79. He is currently on Zosyn. The patient is seen today 02/24/2020 in follow-up on the selective care unit. He is currently sitting up in bed. Awake and alert in no acute distress. Denies any worsening shortness of breath. He is maintaining O2 saturations in the 90s on 35% trach collar. He is afebrile. Sputum culture is positive for Staphylococcus aureus and Serratia marcescens. He is currently on Zosyn and Zyvox. White count 10.5. Hemoglobin 10.9. Creatinine 0.73. He remains on bronchodilators. Anticoagulated with Eliquis. NicoDerm patch in place. On 02/25/2020 a.m. seeing this patient in follow-up. Medical floor. The patient is having significant amount of rest or secretions in his quite congested cough noted considerable amount of mucus. He is previous cultures of shown a combination of MSSA and Serratia and the patient was given accommodation Zosyn and Levaquin. Nevertheless, the follow-up chest exit was obtained this morning shows increasing infiltration of the right lung and a small right-sided pleural effusion also developed on the right side. There is mild patchy density in the left medial left lung base as well. Based on all this, an antibiotic change will be needed. He is afebrile. He underwent a swallow evaluation today and the modified barium swallow showed normal swallowing with thin liquids and pudding thick consistency and there was no evidence of any aspiration or penetration during the examination. His white cell count is at 10.5. The rest of the electrodes are all within normal limits. On 02/26/2020 patient is seen in follow-up on selective care unit, patient is on cefepime and Levaquin for evidence of MSSA and Serratia marcescens, and we requested another sputum culture to be sent yesterday in view of patient's worsening chest x-ray results and continued copious secretions out of his trache ostomy. Patient is seen in follow-up today, she is resting in bed, he seems to be feeling down, he is not talking much, she remains on 6 L per trach collar, his pulse ox is 96%, he is afebrile, still having moderate to large amount of tracheal secretions. He is receiving nutrition via his PEG tube. Apparently patient had a modified barium swallow yesterday on 02/25/2020 which showed essentially normal swallowing with thin liquids and pudding thick consistency, without evidence of aspiration or penetration. Patient seems to be very depressed, and he has made comments indicating suicidal ideation, for that reason aviation safety officer was placed at the bedside and psychiatric services were consulted and patient was started on Zoloft. On 02/27/2020 patient seen in follow-up on selective care unit. He is resting in bed with a aviation safety officer at the bedside, seems to be very withdrawn, he was started on Zoloft by psychiatric services for depression, and making statements about suicidal ideations. Does not appear to be in any acute distress, he is on the trach collar at FiO2 of 35%, his pulse ox is 95-99%, still significant secretions out of his tracheostomy, he is afebrile, he yesterday we added vancomycin in addition to cefepime and Levaquin, a new sputum culture was sent and did not show any growth, his original sputum culture from 02/21/2020 showed MSSA and Serratia marcescens. ID service is following, lung sounds reveal diffuse rhonchi bilaterally. Patient is receiving tube feedings. Today's chest x-ray has been reviewed showing persistent right perihilar and right lower lobe infiltrate with small right-sided pleural effusion. On 02/28/2020 patient seen in follow-up on selective care unit, is awake and alert, oriented 3, he is given some simple answers to distress, seems to be talking a little bit more on today's exam. Denies any acute distress, still seems to be quite congested, rhonchorous, producing yellow to baker colored phlegm, he remains on accommodation cefepime, Levaquin and vancomycin, repeat sputum culture has shown no growth. Patient's right heel ulcer has been cultured, wound cultures are pending. No fever or chills, he is on the trach collar with FiO2 of 35%, he has been started on Zoloft for depression, and a aviation safety officer remains at the bedside. We will repeat chest x-ray tomorrow. On 02/29/2020 patient seen in follow-up on selective care unit. He is sleeping in bed, appears tired, not talking very much, he does wake up, and answer qu estions, she states she didn't sleep last night. Appears to be in no acute distress, sounds better less congested and wheezy on today's exam, with less congested breath sounds. He is on 35% trach collar, with a pulse ox of 97%, he is afebrile, remains on a combination of cefepime and Levaquin, ID service is following, his repeat sputum culture showed no growth. His wound on his right heel was also cultured, and the culture is pending at this time, preliminary Gram stain showed rare gram-positive cocci. Patient's tube feedings are on hold for surgical procedure today, patient is scheduled for tracheostomy change by Dr. Lawrence today at 12:00. On 03/03/2020 patient seen in follow-up on selective care unit, she is resting quietly in bed, appears to be in no acute distress, he is on trach collar with FiO2 of 35% pulse ox is 98%, low-grade fever this morning, 99.1F, hemodynamically stable, no altered mentation. He is on combination of cefepime, and Eraxis his sputum cultures showed MSSA and Serratia marcescens, his right heel wound showed Yodit glabrata. He is tolerating tube feedings, lung sounds reveal some scattered rhonchi, yesterday's chest x-ray showed improving right b asilar infiltrate. CBC was done today, his BMP revealed electrolytes and renal profile within normal limits. On 03/04/2020 patient seen in follow-up on selective care unit. His common comfortable, in no acute distress, she remains on combination of cefepime and Levaquin for MSSA and Serratia pneumonia, no worsening dyspnea, less congested. He is receiving tracheal suctioning as needed. He remains on 35% FiO2 per trach collar, with no worsening dyspnea, today's chest x-ray shows persistent small right pleural effusion and associated right basilar acute infiltrate and lateral right upper to mid lung acute infiltrate with no significant change in the last2 days. Clinically patient has been stable no acute events overnight, he is tolerating his tube feedings. He's getting local wound care to his right heel wound. ID service is following. Today's labs have been reviewed, showing white blood cell count of 10.1, hemoglobin of 10.7, electrolytes and renal profile within normal limits Objective - Vital Signs Vital signs: Vital Signs Temp 98.7 F 03/04/20 09:30 Pulse 72 03/04/20 12:44 Resp 18 03/04/20 12:00 BP 125/61 03/04/20 09:30 Pulse Ox 96 03/04/20 09:30 Intake & Output 03/03/20 03/04/20 03/04/20 18:59 06:59 18:59 Intake Total 0 0 0 Output Total 600 110 Balance -600 0 -110 Weight 68.3 kg 68.3 kg Intake: Tube Feeding 0 0 0 Output: Urine 600 Stool 110 Other: Voiding Method Bedside Commode Bedside Commode # Voids 2 1 # Bowel Movements 1 - Exam GENERAL EXAM: Alert, very withdrawn, 64-year-old male patient, on trach collar, 35% FiO2, with a pulse ox of 99% comfortable in no apparent distress. medical research associate is at the bedside for suicidal precautions HEAD: Normocephalic/atraumatic. EYES: Normal reaction of pupils, equal size. Conjunctiva pink, sclera white. NOSE: Clear with pink turbinates. THROAT: No erythema or exudates. NECK: No masses, no JVD, no thyroid enlargement, no adenopathy. Midline tracheostomy CHEST: No chest wall deformity. Symmetrical expansion. LUNGS: Equal air entry with some scattered rhonchi, but no wheeze, dullness. CVS: Regular rate and rhythm, normal S1 and S2, no gallops, no murmurs, no rubs ABDOMEN: Soft, nontender. No hepatosplenomegaly, normal bowel sounds, no guarding or rigidity. PEG tube present, with tube feedings infusing EXTREMITIES: No clubbing, no edema, no cyanosis, 2+ pulses and upper and lower extremities. MUSCULOSKELETAL: Muscle strength and tone normal. SPINE: No scoliosis or deformity SKIN: No rashes CENTRAL NERVOUS SYSTEM: No focal deficits, tone is normal in all 4 extremities. PSYCHIATRIC: Alert and oriented -3. Appropriate affect. Intact judgment and insight. - Labs CBC & Chem 7: 03/04/20 05:34 03/04/20 05:34 Labs: Abnormal Lab Results - Last 24 Hours (Table) 03/03/20 03/03/20 03/04/20 Range/Units 17:57 20:53 05:34 RBC 3.51 L (4.30-5.90) m/uL Hgb 10.7 L (13.0-17.5) gm/dL Hct 33.4 L (39.0-53.0) % Glucose (74-99) mg/dL POC Glucose (mg/dL) 124 H 112 H (75-99) mg/dL 03/04/20 03/04/20 03/04/20 Range/Units 05:34 06:11 11:47 RBC (4.30-5.90) m/uL Hgb (13.0-17.5) gm/dL Hct (39.0-53.0) % Glucose 116 H (74-99) mg/dL POC Glucose (mg/dL) 137 H 144 H (75-99) mg/dL Assessment and Plan Plan: #1. Acute hypoxic respiratory failure related to methicillin sensitive staph aureus and Serratia marcescens, nevertheless, there is worsening of the right lung infiltrate and today's chest x-ray and there is also development of a small right-sided pleural effusion addition to increase rest or secretions on examination. The patient started off with symptoms of tracheal bronchitis and initial chest x-ray was clear and subsequently developed extensive infiltration of the right lung. He was on a, initial Zosyn and Levaquin and vancomycin On 02/27/2020 patient continues on FiO2 of 35% per trach collar, still significa ntly congested, and there is large amount of secretions out of his tracheostomy, another sputum sample was sent yesterday and has shown no growth, remains on combination of cefepime Levaquin and vancomycin On 02/29/2020 patient remains on 35% trach collar, maintaining stable saturations, less congested and having less secretions out of his tracheostomy. He is going for tracheostomy change today on 02/29/[address] Lawrence. Repeat sputum culture showed no growth. Chest x-ray shows persistent right-sided consolidation and pleural effusion On 03/03/2020 remains on 35% trach collar, maintaining stable saturations, currently on combination of cefepime and Eraxis for MSSA and Serratia pneumonia, chest x-ray shows improving right basilar infiltrate #2. Weakness, dehydration, increased phlegm production, cough, related to the above, improved #3. New onset atrial fibrillation with rapid ventricular response on presentation, currently better controlled, possibly related to dehydration and sepsis, currently in sinus rhythm #4. 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 Patient is due to start treatment on Tuesday on 02/25/2020 with hemotherapy and radiation #5. Previous history of EtOH abuse #6. History of right lower extremity DVT in 2018, patient is not a candidate for chronic anticoagulation, he is status post IVC filter placement #7. Underlying COPD #8. Ex-smoker #9. Depression, suicidal ideation, has been started on Zoloft, seen by psychiatry Plan: Continue antibiotics per ID service recommendations, currently on cefepime and Eraxis, vital signs are stable, no worsening dyspnea, today's chest x-ray shows no significant improvement in the appearance of right lung infiltrate, patient has been afebrile. No acute events overnight, he is tolerating his tube feedings. Continue pulmonary toileting. Tracheal suctioning as needed. Encouraged patient to sit up in the chair. Social work is working on referrals to [facility] and [facility]. We will continue medical treatment. I performed a history & physical examination of the patient and discussed their management with my nurse practitioner, Marifer Hernández. I reviewed the nurse practitioner's note and agree with the documented findings and plan of care. Lung sounds are positive for diminished breath sounds, scattered rhonchi throughout the lung mcgovern. The findings and the impression was discussed with the patient. I attest to the documentation by the nurse practitioner. Time with Patient: Less than 30
--- NOTE | 2020-03-04 15:39 | P.PN ---
Subjective Progress Note Date: 03/04/20 Principal diagnosis: Sepsis Appears comfortable continues on antibiotics for infection of MSSA and pneumonia, once these have been completed and cleared from infectious disease patient seen in follow-up on selective care unit. His common comfortable, in no acute distress, she remains on combination of cefepime and Levaquin for MSSA and pneumonia we can start treatment of cancer with concurrent radiation and chemotherapy. Objective - Vital Signs Vital signs: Vital Signs Temp 98.6 F 03/04/20 12:00 Pulse 72 03/04/20 12:44 Resp 18 03/04/20 12:00 BP 131/62 03/04/20 12:00 Pulse Ox 98 03/04/20 12:00 Intake & Output 03/03/20 03/04/20 03/04/20 18:59 06:59 18:59 Intake Total 0 0 0 Output Total 600 110 Balance -600 0 -110 Weight 68.3 kg 68.3 kg Intake: Tube Feeding 0 0 0 Output: Urine 600 Stool 110 Other: Voiding Method Bedside Commode Bedside Commode # Voids 2 1 # Bowel Movements 1 - Exam - Constitutional General appearance: Present: average body habitus, cooperative, no acute distress - EENT EENT Comment(s): right eye is reddened, swelling ENT: Present: hearing grossly normal Trach - Respiratory Details: posterior diminished, right upper lobe rhonchi Increased effort - Cardiovascular Heart sounds: normal: S1, S2 Abnormal Heart Sounds: Absent: systolic murmur, diastolic murmur, rub, S3 Gallop, S4 Gallop, click, other - Peripheral edema leg Peripheral Edema: bilateral: None Sling on left arm - Gastrointestinal General gastrointestinal: Present: soft - Musculoskeletal Musculoskeletal: Present: generalized weakness - Psychiatric Psychiatric: Present: A&O x's 3, intact judgment & insight - Labs CBC & Chem 7: 03/04/20 05:34 03/04/20 05:34 Labs: Abnormal Lab Results - Last 24 Hours (Table) 03/03/20 03/03/20 03/04/20 Range/Units 17:57 20:53 05:34 RBC 3.51 L (4.30-5.90) m/uL Hgb 10.7 L (13.0-17.5) gm/dL Hct 33.4 L (39.0-53.0) % Glucose (74-99) mg/dL POC Glucose (mg/dL) 124 H 112 H (75-99) mg/dL 03/04/20 03/04/20 03/04/20 Range/Units 05:34 06:11 11:47 RBC (4.30-5.90) m/uL Hgb (13.0-17.5) gm/dL Hct (39.0-53.0) % Glucose 116 H (74-99) mg/dL POC Glucose (mg/dL) 137 H 144 H (75-99) mg/dL Assessment and Plan Plan: Assessment and Plan: MSSA : - Infectious Disease Management of antibiotics - Will need to await recovery and completion og treatment before treatment can be initiated for cancer Tracheobronchitis - Patient treated for the same. Chest x-ray showing right lower lobe infiltrate and small pleural effusion. Patient is on treatment, Pulmonary is following Squamous cell carcinoma of left vocal cord - Newly diagnosed. - Plan was to begin treatment with weekly cisplatin and concurrent radiation this week, delayed until current condition is treated and pt is improved. - Patient understands this plan. - Will need to ensure infection is clear prior to initiation of treatment Plan 03/04/20: - Continue to await recovery of infection, completion of antibiotics, and clearance from infectious disease and then will initiate treatment plan for SCC of vocal cord - Mild anemia will continue to monitor. - Discussed with patient and pulmonary team
[2020-03-04] MEDS: SODIUM CHLORIDE 0.9% 1,000 ML IV SCH (15:54)
[2020-03-04 16:57] LABS: Glucose,Whole Blood 129 mg/dL (75-99)
[2020-03-04] MEDS: MELATONIN 3 MG TABLET PO SCH (20:54)
--- NOTE | 2020-03-04 22:27 | PN ---
PROGRESS NOTE DATE OF SERVICE: 03/04/2020 REASON FOR FOLLOWUP: 1. Pneumonia. 2. Right heel pressure ulcer. No cellulitis. INTERVAL HISTORY: The patient is currently afebrile, has been breathing comfortably. Currently waiting for placement. No chest pain. Cough but no worsening. No abdominal pain or any worsening pain to the right heel. PHYSICAL EXAMINATION: Blood pressure 146/60 with a pulse of 78, temperature 98.6. He is 99% on trach collar. General description is an elderly male up in the bed in no distress. RESPIRATORY SYSTEM: Unlabored breathing. Clear to auscultation. HEART: S1, S2. Regular rate and rhythm. ABDOMEN: Soft. No tenderness. Right heel did have a necrotic area, but no redness or any drainage. LABS: Hemoglobin is 10.7, white count 10.1, BUN of 13, creatinine 0.85. DIAGNOSTIC IMPRESSION AND PLAN: 1. Patient with pneumonia. Sputum has been Serratia marcescens. This is antibiotics to continue with cefepime for another week. 2. Right heel pressure ulcer, unstageable. No cellulitis. No need for any antifungals. Local care to continue with [facility]. Keep the area dry and off pressure. MMODL / IJN: [id number] /
[2020-03-04 23:59] LABS: Glucose,Whole Blood 145 mg/dL (75-99)
[2020-03-05] MEDS: SODIUM CHLORIDE 0.9% 1,000 ML IV SCH (03:08)
[2020-03-05 06:07] LABS: Glucose,Whole Blood 114 mg/dL (75-99)
[2020-03-05] MEDS: IPRATROPIUM-ALBUTEROL 3 ML NEB INHALATION SCH ×3 (08:39→16:08)
[2020-03-05] MEDS: FORMOTEROL FUMARATE 20 MCG/2 ML NEBU INHALATION SCH (08:40)
[2020-03-05] MEDS: CEFEPIME 2 GM in SODIUM CHLORIDE 0.9% 100 ML IVPB SCH ×2 (09:05→16:50)
[2020-03-05] MEDS: NICOTINE 14MG/24HR PATCH TRANSDERM SCH (09:05)
[2020-03-05] MEDS: QUEtiapine 50 MG TAB PO SCH (09:06)
[2020-03-05] MEDS: DILTIAZEM ORAL 60 MG TAB PO SCH ×2 (09:06→16:50)
[2020-03-05] MEDS: ATORVASTATIN 20 MG TAB PO SCH (09:06)
[2020-03-05] MEDS: APIXABAN 5 MG TAB PO SCH (09:06)
[2020-03-05] MEDS: METOPROLOL TARTRATE 50 MG TAB PO SCH (09:06)
[2020-03-05] MEDS: THIAMINE 100 MG TAB PO SCH (09:06)
[2020-03-05] MEDS: SERTRALINE 50 MG TAB PO SCH (09:06)
[2020-03-05] MEDS: FAMOTIDINE 20 MG TAB PO SCH (09:06)
[2020-03-05 10:45] VITALS: RESP 20
[2020-03-05 11:49] LABS: Glucose,Whole Blood 111 mg/dL (75-99)
--- NOTE | 2020-03-05 12:09 | P.PN ---
Subjective Progress Note Date: 03/05/20 Principal diagnosis: MSSA and Serratia related pneumonia, A. 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 Patient also had a PEG tube placed for nutritional support. Patient had a prolonged hospitalization back in December during which left vocal cord squamous cell carcinoma was diagnosed. His staging CTs did not reveal metastatic disease , PET scan on 02/05/2020 showed uptake only in the left laryngeal mass with max SUV of 12.5. Patient was discharged to [facility] following his hospitalization, and was discharged home sometime in mid January. He was due to start chemoradiation this coming Tuesday on 02/25/2020. However patient developed progressive cough, purulent sputum production, increasing shortness of breath, and chills, he was taken to the hospital to [facility]. Patient also was found to be in atrial fibrillation with RVR. He had symptoms of increased weakness and fatigue. COVID 19 was ruled out. Chest x-ray showed clearing of the left basilar pneumonia and no new focal consolidation. Labs showed a white blood cell, 12.1, hemoglobin of 15.5, sodium of 141, potassium is 3.7, chloride is 110, CO2 is 23, BUN 16 creatinine 0.79, pro calcitonin was low at 0.10, patient is covered with Zosyn for empiric antibiotic coverage, he was fluid resuscitated, he is awake and alert, dentition is appropriate, he is on trach collar at 6 L/m, and his pulse ox is 94%, afebrile, large amount of thick secretions is being suctioned out of his trach, and preliminary sputum Gram stain showed moderate epithelial cells, few gram-positive cocci, few gram- positive bacilli and rare gram-negative bacilli The patient is seen today 02/23/2020 in follow-up on the selective care unit. He is currently sitting up in a chair at the bedside. Awake and alert in no acute distress. He is maintaining good O2 saturations in the 90s on 35% trach collar. He's been afebrile. Hemodynamically stable. Sputum culture is positive for presumptive staph aureus/gram-negative bacilli. White count 13.1. Hemoglobin 10.2. Sodium 141. Potassium 3.2. Creatinine 0.79. He is currently on Zosyn. The patient is seen today 02/24/2020 in follow-up on the selective care unit. He is currently sitting up in bed. Awake and alert in no acute distress. Denies any worsening shortness of breath. He is maintaining O2 saturations in the 90s on 35% trach collar. He is afebrile. Sputum culture is positive for Staphylococcus aureus and Serratia marcescens. He is currently on Zosyn and Zyvox. White count 10.5. Hemoglobin 10.9. Creatinine 0.73. He remains on bronchodilators. Anticoagulated with Eliquis. NicoDerm patch in place. On 02/25/2020 a.m. seeing this patient in follow-up. Medical floor. The patient is having significant amount of rest or secretions in his quite congested cough noted considerable amount of mucus. He is previous cultures of shown a combination of MSSA and Serratia and the patient was given accommodation Zosyn and Levaquin. Nevertheless, the follow-up chest exit was obtained this morning shows increasing infiltration of the right lung and a small right-sided pleural effusion also developed on the right side. There is mild patchy density in the left medial left lung base as well. Based on all this, an antibiotic change will be needed. He is afebrile. He underwent a swallow evaluation today and the modified barium swallow showed normal swallowing with thin liquids and pudding thick consistency and there was no evidence of any aspiration or penetration during the examination. His white cell count is at 10.5. The rest of the electrodes are all within normal limits. On 02/26/2020 patient is seen in follow-up on selective care unit, patient is on cefepime and Levaquin for evidence of MSSA and Serratia marcescens, and we requested another sputum culture to be sent yesterday in view of patient's worsening chest x-ray results and continued copious secretions out of his trache ostomy. Patient is seen in follow-up today, she is resting in bed, he seems to be feeling down, he is not talking much, she remains on 6 L per trach collar, his pulse ox is 96%, he is afebrile, still having moderate to large amount of tracheal secretions. He is receiving nutrition via his PEG tube. Apparently patient had a modified barium swallow yesterday on 02/25/2020 which showed essentially normal swallowing with thin liquids and pudding thick consistency, without evidence of aspiration or penetration. Patient seems to be very depressed, and he has made comments indicating suicidal ideation, for that reason pilot safety inspector was placed at the bedside and psychiatric services were consulted and patient was started on Zoloft. On 02/27/2020 patient seen in follow-up on selective care unit. He is resting in bed with a pilot safety inspector at the bedside, seems to be very withdrawn, he was started on Zoloft by psychiatric services for depression, and making statements about suicidal ideations. Does not appear to be in any acute distress, he is on the trach collar at FiO2 of 35%, his pulse ox is 95-99%, still significant secretions out of his tracheostomy, he is afebrile, he yesterday we added vancomycin in addition to cefepime and Levaquin, a new sputum culture was sent and did not show any growth, his original sputum culture from 02/21/2020 showed MSSA and Serratia marcescens. ID service is following, lung sounds reveal diffuse rhonchi bilaterally. Patient is receiving tube feedings. Today's chest x-ray has been reviewed showing persistent right perihilar and right lower lobe infiltrate with small right-sided pleural effusion. On 02/28/2020 patient seen in follow-up on selective care unit, is awake and alert, oriented 3, he is given some simple answers to distress, seems to be talking a little bit more on today's exam. Denies any acute distress, still seems to be quite congested, rhonchorous, producing yellow to baker colored phlegm, he remains on accommodation cefepime, Levaquin and vancomycin, repeat sputum culture has shown no growth. Patient's right heel ulcer has been cultured, wound cultures are pending. No fever or chills, he is on the trach collar with FiO2 of 35%, he has been started on Zoloft for depression, and a pilot safety inspector remains at the bedside. We will repeat chest x-ray tomorrow. On 02/29/2020 patient seen in follow-up on selective care unit. He is sleeping in bed, appears tired, not talking very much, he does wake up, and answer qu estions, she states she didn't sleep last night. Appears to be in no acute distress, sounds better less congested and wheezy on today's exam, with less congested breath sounds. He is on 35% trach collar, with a pulse ox of 97%, he is afebrile, remains on a combination of cefepime and Levaquin, ID service is following, his repeat sputum culture showed no growth. His wound on his right heel was also cultured, and the culture is pending at this time, preliminary Gram stain showed rare gram-positive cocci. Patient's tube feedings are on hold for surgical procedure today, patient is scheduled for tracheostomy change by Dr. Lawrence today at 12:00. On 03/03/2020 patient seen in follow-up on selective care unit, she is resting quietly in bed, appears to be in no acute distress, he is on trach collar with FiO2 of 35% pulse ox is 98%, low-grade fever this morning, 99.1F, hemodynamically stable, no altered mentation. He is on combination of cefepime, and Eraxis his sputum cultures showed MSSA and Serratia marcescens, his right heel wound showed Yodit glabrata. He is tolerating tube feedings, lung sounds reveal some scattered rhonchi, yesterday's chest x-ray showed improving right b asilar infiltrate. CBC was done today, his BMP revealed electrolytes and renal profile within normal limits. On 03/04/2020 patient seen in follow-up on selective care unit. His common comfortable, in no acute distress, she remains on combination of cefepime and Levaquin for MSSA and Serratia pneumonia, no worsening dyspnea, less congested. He is receiving tracheal suctioning as needed. He remains on 35% FiO2 per trach collar, with no worsening dyspnea, today's chest x-ray shows persistent small right pleural effusion and associated right basilar acute infiltrate and lateral right upper to mid lung acute infiltrate with no significant change in the last2 days. Clinically patient has been stable no acute events overnight, he is tolerating his tube feedings. He's getting local wound care to his right heel wound. ID service is following. Today's labs have been reviewed, showing white blood cell count of 10.1, hemoglobin of 10.7, electrolytes and renal profile within normal limits On 03/05/2020 patient seen in follow-up on selective care unit, he is resting quietly in bed, in no acute distress, less congested, with secretions out of the tracheostomy tube. He remains on FiO2 of 35%, his pulse ox is 99%. Vital signs are stable, afebrile, patient is currently on cefepime for MSSA and Serratia marcescens pneumonia. Patient will need antibiotics for another week according to ID service recommendations. He is tolerating his oral feedings, no nausea vomiting or diarrhea. No abdominal pain. No acute events overnight. He continues on breathing treatments. Referrals have been made by DRYWALL CARRIER to [facility] for urine and [facility] for possibility of placement after discharge Objective - Vital Signs Vital signs: Vital Signs Temp 98.4 F 03/05/20 03:13 Pulse 76 03/05/20 11:54 Resp 20 03/05/20 08:00 BP 147/75 03/05/20 08:00 Pulse Ox 99 03/05/20 08:00 Intake & Output 03/04/20 03/05/20 03/05/20 18:59 06:59 18:59 Intake Total 0 600 350 Output Total 200 Balance 0 600 150 Weight 68.3 kg 63.5 kg Intake: Oral 150 Tube Feeding 0 600 200 Output: Urine 200 Other: Voiding Method Bedside Commode Bedside Commode # Voids 3 1 - Exam GENERAL EXAM: Alert, very withdrawn, 64-year-old male patient, on trach collar, 35% FiO2, with a pulse ox of 99% comfortable in no apparent distress. career development associate is at the bedside for suicidal precautions HEAD: Normocephalic/atraumatic. EYES: Normal reaction of pupils, equal size. Conjunctiva pink, sclera white. NOSE: Clear with pink turbinates. THROAT: No erythema or exudates. NECK: No masses, no JVD, no thyroid enlargement, no adenopathy. Midline tra cheostomy CHEST: No chest wall deformity. Symmetrical expansion. LUNGS: Equal air entry with some scattered rhonchi, but no wheeze, dullness. CVS: Regular rate and rhythm, normal S1 and S2, no gallops, no murmurs, no rubs ABDOMEN: Soft, nontender. No hepatosplenomegaly, normal bowel sounds, no gu arding or rigidity. PEG tube present, with tube feedings infusing EXTREMITIES: No clubbing, no edema, no cyanosis, 2+ pulses and upper and lower extremities. MUSCULOSKELETAL: Muscle strength and tone normal. SPINE: No scoliosis or deformity SKIN: No rashes CENTRAL NERVOUS SYSTEM: No focal deficits, tone is normal in all 4 extremities. PSYCHIATRIC: Alert and oriented -3. Appropriate affect. Intact judgment and insight. - Labs CBC & Chem 7: 03/04/20 05:34 03/04/20 05:34 Labs: Abnormal Lab Results - Last 24 Hours (Table) 03/04/20 03/04/20 03/05/20 Range/Units 16:54 23:57 06:06 POC Glucose (mg/dL) 129 H 145 H 114 H (75-99) mg/dL 03/05/20 Range/Units 11:44 POC Glucose (mg/dL) 111 H (75-99) mg/dL Assessment and Plan Plan: #1. Acute hypoxic respiratory failure related to methicillin sensitive staph aureus and Serratia marcescens, nevertheless, there is worsening of the right lung infiltrate and today's chest x-ray and there is also development of a small right-sided pleural effusion addition to increase rest or secretions on examination. The patient started off with symptoms of tracheal bronchitis and initial chest x-ray was clear and subsequently developed extensive infiltration of the right lung. He was on a, initial Zosyn and Levaquin and vancomycin On 02/27/2020 patient continues on FiO2 of 35% per trach collar, still significa ntly congested, and there is large amount of secretions out of his tracheostomy, another sputum sample was sent yesterday and has shown no growth, remains on combination of cefepime Levaquin and vancomycin On 02/29/2020 patient remains on 35% trach collar, maintaining stable saturations, less congested and having less secretions out of his tracheostomy. He is going for tracheostomy change today on 02/29/[address] Lawrence. Repeat sputum culture showed no growth. Chest x-ray shows persistent right-sided consolidation and pleural effusion On 03/03/2020 remains on 35% trach collar, maintaining stable saturations, currently on combination of cefepime and Eraxis for MSSA and Serratia pneumonia, chest x-ray shows improving right basilar infiltrate On 03/05/2020 patient remains on 35% trach collar, he is afebrile, currently on cefepime for MSSA and Serratia marcescens pneumonia, clinically stable, discharge planning is in progress for possible ECF placement after discharge. #2. Weakness, dehydration, increased phlegm production, cough, related to the above, improved #3. New onset atrial fibrillation with rapid ventricular response on presentation, currently better controlled, possibly related to dehydration and sepsis, currently in sinus rhythm #4. 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 Patient is due to start treatment on Tuesday on 02/25/2020 with hemotherapy and radiation #5. Previous history of EtOH abuse #6. History of right lower extremity DVT in 2018, patient is not a candidate for chronic anticoagulation, he is status post IVC filter placement #7. Underlying COPD #8. Ex-smoker #9. Depression, suicidal ideation, has been started on Zoloft, seen by psychiatry Plan: Follow-up chest x-ray in the morning, antibiotics per ID service recommendations, clinically patient is stable, same amount of FiO2, maintaining stable saturations, less congested, and continue pulmonary toileting, continue breathing treatments, encouraged the patient to sit up in the chair. Social work is working on finding a local ECF to accept the patient, however the patient wants to go home after discharge. I performed a history & physical examination of the patient and discussed their management with my nurse practitioner, Marifer Hernández. I reviewed the nurse practitioner's note and agree with the documented findings and plan of care. Lung sounds are positive for diminished breath sounds, scattered rhonchi throughout the lung mcgovern. The findings and the impression was discussed with the patient. I attest to the documentation by the nurse practitioner. Time with Patient: Less than 30
[2020-03-05 12:50] VITALS: BP 154/67; TEMP 98.2
[2020-03-05 14:33] VITALS: BMI 19.5
--- NOTE | 2020-03-05 15:47 | P.PN ---
Subjective Progress Note Date: 03/05/20 Principal diagnosis: Sepsis He has no new complaints, anxious to go home. Remains on antibiotics. Objective - Vital Signs Vital signs: Vital Signs Temp 98.2 F 03/05/20 12:00 Pulse 73 03/05/20 15:17 Resp 20 03/05/20 15:17 BP 154/67 03/05/20 12:00 Pulse Ox 94 L 03/05/20 12:00 Intake & Output 03/04/20 03/05/20 03/05/20 18:59 06:59 18:59 Intake Total 0 600 750 Output Total 200 Balance 0 600 550 Weight 68.3 kg 63.5 kg 63.5 kg Intake: Oral 150 Tube Feeding 0 600 600 Output: Urine 200 Other: Voiding Method Bedside Commode Bedside Commode # Voids 3 1 - Exam - Constitutional General appearance: Present: average body habitus, cooperative, no acute distress - EENT EENT Comment(s): right eye is reddened, swelling ENT: Present: hearing grossly normal Trach - Respiratory Details: posterior diminished, right upper lobe rhonchi Increased effort - Cardiovascular Heart sounds: normal: S1, S2 Abnormal Heart Sounds: Absent: systolic murmur, diastolic murmur, rub, S3 Gallop, S4 Gallop, click, other - Peripheral edema leg Peripheral Edema: bilateral: None Sling on left arm - Gastrointestinal General gastrointestinal: Present: soft - Musculoskeletal Musculoskeletal: Present: generalized weakness - Psychiatric Psychiatric: Present: A&O x's 3, intact judgment & insight - Labs CBC & Chem 7: 03/04/20 05:34 03/04/20 05:34 Labs: Abnormal Lab Results - Last 24 Hours (Table) 03/04/20 03/04/20 03/05/20 Range/Units 16:54 23:57 06:06 POC Glucose (mg/dL) 129 H 145 H 114 H (75-99) mg/dL 03/05/20 Range/Units 11:44 POC Glucose (mg/dL) 111 H (75-99) mg/dL Assessment and Plan Plan: Assessment and Plan: MSSA : - Infectious Disease Management of antibiotics - Will need to await recovery and completion of treatment before treatment can be initiated for cancer Tracheobronchitis - Patient treated for the same. Chest x-ray showing right lower lobe infiltrate and small pleural effusion. Patient is on treatment, Pulmonary is following Squamous cell carcinoma of left vocal cord - Newly diagnosed. - Plan was to begin treatment with weekly cisplatin and concurrent radiation this week, delayed until current condition is treated and pt is improved. - Patient understands this plan. - Will need to ensure infection is clear prior to initiation of treatment Plan 03/05/20: - Continue to await recovery of infection, completion of antibiotics, and cl earance from infectious disease and then will initiate treatment plan for SCC of vocal cord - Will discuss initiation of radiation therapy alone as option with radiation oncology, if this poses little threat but does provide benefit then will plan for treatment initiation sooner, although radiation alone.
[2020-03-05 16:19] VITALS: PULSE 69
[2020-03-05 16:56] LABS: Glucose,Whole Blood 127 mg/dL (75-99)
--- NOTE | 2020-03-05 16:58 | PN ---
PROGRESS NOTE DATE OF SERVICE: 03/05/2020 REASON FOR FOLLOWUP: Pneumonia. INTERVAL HISTORY: The patient is currently afebrile, patient is breathing comfortably. Denies having any chest pain. No shortness of breath. Minimal cough. No worsening, no abdominal pain, no diarrhea. PHYSICAL EXAMINATION: Blood pressure 154/57, pulse of 58, temperature 98.2, he is 94% on room air. General description is an elderly male, up in the chair in no distress. RESPIRATORY SYSTEM: Unlabored breathing, decreased breath sounds, no wheeze. HEART: S1, S2. Regular rate and rhythm. ABDOMEN: Soft, no tenderness. LABS: White count normal 3.1 as of yesterday. DIAGNOSTIC IMPRESSION AND PLAN: Patient with pneumonia. Sputum is positive for MSSA and Serratia marcescens. The patient received about 12 days of IV cefepime, to continue cefepime for another week to finish a course of therapy and continue supportive care. MMODL / IJN: [id number] /
== END 2020-03-05 18:12 | disposition home health service (06) | DRG 202 ==
LOC: EC 00:10 → 3SCARD 01:00
PROVIDERS: ADMIT Hospitalist; ATTEND Hospitalist
PROC: 3E0G76Z Introduction of Nutritional Substance into Upper GI, Via Natural or Artificial Opening (ICD-10-PCS; 2020-02-22)
PROC: 0B21XFZ Change Tracheostomy Device in Trachea, External Approach (ICD-10-PCS; principal; 2020-02-29 12:00)
PROC: 05HF33Z Insertion of Infusion Device into Left Cephalic Vein, Percutaneous Approach (ICD-10-PCS; 2020-03-05)
DX: J20.9 Acute bronchitis, unspecified (principal); L89.893 Pressure ulcer of other site, stage 3; E43 Unspecified severe protein-calorie malnutrition; J15.6 Pneumonia due to other Gram-negative bacteria; J15.211 Pneumonia due to Methicillin susceptible Staphylococcus aureus; J96.01 Acute respiratory failure with hypoxia; E87.2 Acidosis; J44.0 Chronic obstructive pulmonary disease with (acute) lower respiratory infection; J90 Pleural effusion, not elsewhere classified; R45.851 Suicidal ideations; Z43.0 Encounter for attention to tracheostomy; C32.0 Malignant neoplasm of glottis; E78.5 Hyperlipidemia, unspecified; E86.0 Dehydration; E87.6 Hypokalemia; Z87.891 Personal history of nicotine dependence; F32.9 Major depressive disorder, single episode, unspecified; F41.9 Anxiety disorder, unspecified; Z20.828 Contact with and (suspected) exposure to other viral communicable diseases; I10 Essential (primary) hypertension; I48.0 Paroxysmal atrial fibrillation; I49.3 Ventricular premature depolarization; I73.9 Peripheral vascular disease, unspecified; D64.9 Anemia, unspecified; K21.9 Gastro-esophageal reflux disease without esophagitis; L89.610 Pressure ulcer of right heel, unstageable; Z78.9 Other specified health status; Z79.01 Long term (current) use of anticoagulants; Z93.1 Gastrostomy status; M19.90 Unspecified osteoarthritis, unspecified site; F10.11 Alcohol abuse, in remission; F43.23 Adjustment disorder with mixed anxiety and depressed mood; Z90.02 Acquired absence of larynx; Z95.9 Presence of cardiac and vascular implant and graft, unspecified; Z79.82 Long term (current) use of aspirin; Z79.899 Other long term (current) drug therapy; Z82.49 Family history of ischemic heart disease and other diseases of the circulatory system; Z85.21 Personal history of malignant neoplasm of larynx; Z86.711 Personal history of pulmonary embolism; Z86.718 Personal history of other venous thrombosis and embolism; Z95.828 Presence of other vascular implants and grafts
CPT/HCPCS: 36410; 71045; 74230; 76937; 77300; 77301; 77338; 80048; 80053; 80202; 82040; 82565; 83605; 83735; 84132; 84145; 84443; 85025; 85027; 86140; 87070; 87075; 87077; 87186; 87205; 87635; 93005; 94640; 94760

== ENCOUNTER 2020-03-17 06:53 | Day surgery (SDC) | payer MEDICARE ==
[2020-03-14 10:18] VITALS: BMI 21.0
[2020-03-17] MEDS ORDERED: LACTATED RINGERS 1,000 ML IV SCH (07:05)
[2020-03-17 07:20] VITALS: TEMP 97.5
[2020-03-17] MEDS ORDERED: LACTATED RINGERS 1,000 ML IV ONE (07:25)
[2020-03-17] MEDS ORDERED: PROPOFOL 10 MG/ML 20 ML VIAL IV ONE (07:42)
[2020-03-17] MEDS ORDERED: fentaNYL (PF) 50 MCG/ML 2 ML AMP ONE (07:42)
[2020-03-17] MEDS ORDERED: LIDOCAINE 1% INJ 10MG/ML (20 ML MDV) ONE (07:42)
[2020-03-17] MEDS ORDERED: MIDAZOLAM 2 MG/2 ML VIAL ONE (07:42)
--- NOTE | 2020-03-17 07:50 | P.GSHP ---
History of Present Illness H&P Date: 03/17/20 Chief Complaint: Malnutrition This is a 64-year-old male with history of malnutrition related to throat cancer. Patient rents today for PEG tube placement Past Medical History Past Medical History: Atrial Fibrillation, Cancer, COPD, Deep Vein Thrombosis (DVT), GERD/Reflux, Hyperlipidemia, Hypertension, Liver Disease, Pneumonia, Pulmonary Embolus (PE) Additional Past Medical History / Comment(s): Arthritis, skin cancer & vocal cord cancer, PEG and tracheostomy., recent hospitalization at [facility] for pneumonia, resp failure & a-fib- discharged 03/05/20., Pressure ulcer right heel- visiting nurse., taking popsicles and icecream bars and drinking some liquids by mouth., states continuous tube feedings. states he will start radiation tx 03/17/20. History of Any Multi-Drug Resistant Organisms: None Reported Past Surgical History: Unable to Obtain Additional Past Surgical History / Comment(s): COLONOSCOPY, tracheostomy, peg tube. , IVC filter. cataracts Past Anesthesia/Blood Transfusion Reactions: No Reported Reaction Past Psychological History: Anxiety, Depression Smoking Status: Former smoker Past Alcohol Use History: Daily Additional Past Alcohol Use History / Comment(s): quit smoking 2 months ago, smoked 1 ppd. no current alcohol, hx of 3 beers /day Additional Drug Use History / Comment(s): pts states no marijuana use. - Past Family History Mother Family Medical History: Hypertension Father History Unknown: Yes Family Medical History: Hypertension Medications and Allergies Home Medications Medication Instructions Recorded Confirmed Type Atorvastatin [Lipitor] 20 mg PEG/G-TUBE DAILY 07/05/18 03/14/20 History Chlorhexidine Gluconate [Peridex] 15 ml MUCOUS MEM BID #0 solution 01/04/20 03/14/20 Rx Famotidine 20 mg PEG/G-TUBE DAILY 02/21/20 03/14/20 History Folic Acid 1 mg PEG/G-TUBE DAILY 02/21/20 03/14/20 History Thiamine [Vitamin B-1] 100 mg PEG/G-TUBE DAILY 02/21/20 03/14/20 History Cefepime HCl [Maxipime] 2 gm IV Q12H 10 Days #20 vial 03/04/20 03/14/20 Rx Ipratropium-Albuterol Nebulize 3 ml INHALATION QID PRN #120 neb 03/05/20 03/14/20 Rx [Duoneb 0.5 mg-3 mg/3 ml Soln] Apixaban [Eliquis] 5 mg PEG/G-TUBE BID 03/14/20 03/14/20 History Diltiazem Oral [Cardizem] 60 mg PEG/G-TUBE TID 03/14/20 03/14/20 History Metoprolol Tartrate [Lopressor] 100 mg PEG/G-TUBE BID 03/14/20 03/14/20 History QUEtiapine [SEROquel] 50 mg PEG/G-TUBE BID 03/14/20 03/14/20 History Allergies Allergy/AdvReac Type Severity Reaction Status Date / Time lisinopril Allergy Swelling Verified 03/14/20 09:40 acetaminophen [From Tylenol] AdvReac LIVER Verified 03/14/20 09:40 PROBLEMS PER NSAIDS (Non-Steroidal AdvReac LIVER Verified 03/14/20 09:40 Anti-Inflamma PROBLEMS PER Surgical - Exam Vital Signs Temp Pulse Resp BP Pulse Ox 97.5 F L 70 18 169/77 97 03/17/20 07:19 03/17/20 07:19 03/17/20 07:19 03/17/20 07:19 03/17/20 07:19 - General well developed, well nourished, no distress - Eyes PERRL - ENT normal pinna - Neck no masses - Respiratory normal expansion - Cardiovascular Rhythm: regular - Abdomen Abdomen: soft, non tender Assessment and Plan Assessment: Medication. We'll perform PEG tube placement
--- NOTE | 2020-03-17 07:59 | P.OP ---
Date of Procedure: 03/17/20 Preoperative Diagnosis: Malnutrition Postoperative Diagnosis: Malnutrition Procedure(s) Performed: EGD Anesthesia: MAC Surgeon: Devante Martin Pathology: none sent Condition: stable Disposition: PACU Description of Procedure: The patient's placed on the endoscopy table in the lateral position. He receiv ed IV sedation. The gastric patient oropharynx past esophagus and stomach. The first and second portion duodenum appeared normal. Scope summer back and the stomach was visualized. The gastric tumor appeared to be in appropriate position. At this point the PEG tube was withdrawn with gentle traction. There is no trauma to the stomach. Replacement RADHA tube was placed and stomach under direct vision and then the balloon was inflated. The balloon was inflated with 10 mL of saline. There is no bleeding.. The scope was then withdrawn.
[2020-03-17 08:31] VITALS: BP 130/70; PULSE 60; RESP 16
== END 2020-03-17 09:10 | disposition home or self-care (01) ==
LOC: ORWHC2ENDO 06:53
PROVIDERS: ATTEND Surgery
DX: E46 Unspecified protein-calorie malnutrition (principal); C32.0 Malignant neoplasm of glottis; I48.91 Unspecified atrial fibrillation; J44.9 Chronic obstructive pulmonary disease, unspecified; K21.9 Gastro-esophageal reflux disease without esophagitis; E78.5 Hyperlipidemia, unspecified; I10 Essential (primary) hypertension; K76.9 Liver disease, unspecified; M19.90 Unspecified osteoarthritis, unspecified site; F41.9 Anxiety disorder, unspecified; F32.9 Major depressive disorder, single episode, unspecified; Z86.718 Personal history of other venous thrombosis and embolism; Z87.01 Personal history of pneumonia (recurrent); Z86.711 Personal history of pulmonary embolism; Z85.828 Personal history of other malignant neoplasm of skin; Z93.0 Tracheostomy status; Z87.09 Personal history of other diseases of the respiratory system; Z98.890 Other specified postprocedural states; Z98.41 Cataract extraction status, right eye; Z98.42 Cataract extraction status, left eye; Z87.891 Personal history of nicotine dependence; Z79.899 Other long term (current) drug therapy; Z79.01 Long term (current) use of anticoagulants; Z88.8 Allergy status to other drugs, medicaments and biological substances; Z88.6 Allergy status to analgesic agent; Z82.49 Family history of ischemic heart disease and other diseases of the circulatory system
CPT/HCPCS: 43246; U0003; J2250; J2001; J3010; J2704

== ENCOUNTER → 2020-06-24 | Outpatient (CLI) | payer MEDICARE ==
--- NOTE | 2020-06-24 22:51 | CT ---
EXAMINATION TYPE: CT soft tissue neck w con DATE OF EXAM: 06/24/2020 COMPARISON: 01/03/2020 HISTORY: Anterior neck swelling CT DLP: 427.6 mGycm CONTRAST: Patient injected with 100 mL of Isovue 300. TECHNIQUE: Axial images at 3 mm thick sections. Reconstructed images in the coronal plane and sagitt al plane are reviewed. FINDINGS: Limited CT sections are obtained the lung apices. The lung apices appear clear. Tracheosto my tube is evident. There is an azygos lobe which is a normal variant. CT neck: The torus tubarius and fossa of Rosenmuller are normal. Parole Supervisor spaces are normal. Ther e is mild mucosal thickening within anterior ethmoid air cells. There is mucosal thickening within th e right maxillary sinus. Remaining paranasal sinuses are clear. Parotid glands appear normal and symmetrical. Submandibular glands, are normal. There may be a small amount of fluid inferior to the submandibular glands. Soft tissue swelling is within the submental a nd submandibular superficial spaces. Small submandibular lymph nodes are present. No enlarged lymphad enopathy is evident. Parapharyngeal spaces are normal. No suspicious enlarged adenopathy is evident . There is continued fullness within the inferior hypopharynx posteriorly. This is greater than the chanda or study. Utilizing a calcification is marker this is currently 2.3 cm which was 1.5 cm previous. Ser ies 3 image 45. There is some fullness along the right vocal cord. There may be some retraction of the left vocal cor d. Thyroid as visualized is normal. Osseous structures are normal. Degenerative disc changes are within the cervical spine. IMPRESSIONS: 1. Increasing fullness within the inferior hypopharynx. 2. Developing edema within the subglottic and submandibular superficial spaces. Small amount fluid ma y be inferior to the submandibular glands.
== END | disposition home or self-care (01) ==
LOC: RADCTMAIN 15:42
PROVIDERS: ATTEND Otolaryngology
DX: J38.4 Edema of larynx (principal)
CPT/HCPCS: 82565; 84520; 70491; 36415; Q9967

== ENCOUNTER 2020-07-18 16:16 | Emergency (ER) | payer MEDICARE ==
[2020-07-18 16:23] VITALS: RESP 18; TEMP 97.9
[2020-07-18] MEDS ORDERED: SODIUM CHLORIDE 0.9% 1,000 ML IV STA (16:52)
[2020-07-18] MEDS ORDERED: MORPHINE SULFATE 4 MG/ML SYRINGE IV STA (16:52)
[2020-07-18] MEDS ORDERED: HYDROmorphone 1 MG/ML 1 ML SYRINGE IM STA (16:54)
--- NOTE | 2020-07-18 16:55 | ED ---
Abdominal Pain HPI - General Chief Complaint: Abdominal Pain Stated Complaint: peg tube Issues Time Seen by Provider: 07/18/20 16:25 Source: patient, family, RN notes reviewed, old records reviewed Mode of arrival: wheelchair Limitations: no limitations - History of Present Illness Initial Comments: This is a 64-year-old male he presents for evaluation regards to dislodge a displaced PEG tube, severe pain at PEG tube site with surrounding redness. Patient has had this PEG tube for about 4 months. at bedside as patient is unable to talk states patient has severe pain with either moving the PEG tube or chest with flushes of the PEG tube. Although does seem to flush appropriately. She also noticed that the attachment to the PEG tube seems very much bothered from the skin than normal MD Complaint: abdominal pain (PEG tube failure) -: hour(s) Location: periumbilical Radiation: none Migration to: no migration Severity: severe Severity scale (1-10): 8 Quality: stabbing, sharp Consistency: constant Improves With: nothing Worsens With: nothing Associated Symptoms: denies other symptoms - Related Data Home Medications Medication Instructions Recorded Confirmed Atorvastatin [Lipitor] 20 mg PEG/G-TUBE DAILY 07/05/18 04/23/20 Famotidine 20 mg PEG/G-TUBE DAILY 02/21/20 04/23/20 Folic Acid 1 mg PEG/G-TUBE DAILY 02/21/20 04/23/20 Thiamine [Vitamin B-1] 100 mg PEG/G-TUBE DAILY 02/21/20 04/23/20 Apixaban [Eliquis] 5 mg PEG/G-TUBE BID 03/14/20 04/23/20 Diltiazem Oral [Cardizem] 60 mg PEG/G-TUBE TID 03/14/20 04/23/20 Metoprolol Tartrate [Lopressor] 100 mg PEG/G-TUBE BID 03/14/20 04/23/20 QUEtiapine [SEROquel] 50 mg PEG/G-TUBE BID 03/14/20 04/23/20 HYDROcodone/APAP [[place] Elixir 15 ml PO Q8HR PRN 04/16/20 04/23/20 7.5-325Mg/15Ml] Furosemide [Lasix] 20 mg PO DAILY 04/23/20 04/23/20 diphenhydrAMINE [Benadryl] 25 mg PO DIRECTED 04/23/20 04/23/20 Previous Rx's Medication Instructions Recorded Chlorhexidine Gluconate [Peridex] 15 ml MUCOUS MEM BID #0 solution 01/04/20 Cefepime HCl [Maxipime] 2 gm IV Q12H 10 Days #20 vial 03/04/20 Ipratropium-Albuterol Nebulize 3 ml INHALATION QID PRN #120 neb 03/05/20 [Duoneb 0.5 mg-3 mg/3 ml Soln] Allergies Allergy/AdvReac Type Severity Reaction Status Date / Time lisinopril Allergy Swelling Verified 07/18/20 16:19 acetaminophen [From Tylenol] AdvReac LIVER Verified 07/18/20 16:19 PROBLEMS PER NSAIDS (Non-Steroidal AdvReac LIVER Verified 07/18/20 16:19 Anti-Inflamma PROBLEMS PER Review of Systems ROS Statement: Those systems with pertinent positive or pertinent negative responses have been documented in the HPI. ROS Other: All systems not noted in ROS Statement are negative. Past Medical History Past Medical History: Atrial Fibrillation, Cancer, COPD, Deep Vein Thrombosis (DVT), GERD/Reflux, Hyperlipidemia, Hypertension, Liver Disease, Pneumonia, Pulmonary Embolus (PE) Additional Past Medical History / Comment(s): Arthritis, skin cancer & vocal cord cancer, PEG and tracheostomy., recent hospitalization at [facility] for pneumonia, resp failure & a-fib- discharged 03/05/20., Pressure ulcer right heel- visiting nurse., taking popsicles and icecream bars and drinking some liquids by mouth., states continuous tube feedings. states he will start radiation tx 03/17/20. History of Any Multi-Drug Resistant Organisms: None Reported Past Surgical History: Unable to Obtain Additional Past Surgical History / Comment(s): COLONOSCOPY, tracheostomy, peg tube. , IVC filter. cataracts Past Anesthesia/Blood Transfusion Reactions: No Reported Reaction Past Psychological History: Anxiety, Depression Smoking Status: Former smoker Past Alcohol Use History: None Reported, Daily Past Drug Use History: None Reported, Marijuana - Past Family History Mother Family Medical History: Hypertension Father History Unknown: Yes Family Medical History: Hypertension General Exam Limitations: no limitations General appearance: alert, in no apparent distress Head exam: Present: atraumatic, normocephalic, normal inspection Eye exam: Present: normal appearance, PERRL, EOMI. Absent: scleral icterus, conjunctival injection, periorbital swelling ENT exam: Present: normal exam, mucous membranes moist Neck exam: Present: normal inspection. Absent: tenderness, meningismus, lymphadenopathy Respiratory exam: Present: normal lung sounds bilaterally. Absent: respiratory distress, wheezes, rales, rhonchi, stridor Cardiovascular Exam: Present: regular rate, normal rhythm, normal heart sounds. Absent: systolic murmur, diastolic murmur, rubs, gallop, clicks GI/Abdominal exam: Present: soft, normal bowel sounds. Absent: distended, tenderness, guarding, rebound, rigid Extremities exam: Present: normal inspection, full ROM, normal capillary refill. Absent: tenderness, pedal edema, joint swelling, calf tenderness Back exam: Present: normal inspection Neurological exam: Present: alert, oriented X3, CN II-XII intact Psychiatric exam: Present: normal affect, normal mood Skin exam: Present: warm, dry, intact, normal color. Absent: rash Course Vital Signs 07/18/20 16:19 Temperature 97.9 F Pulse Rate 78 Respiratory 18 Rate Blood Pressure 125/69 O2 Sat by Pulse 93 L Oximetry - Reevaluation(s) Reevaluation #1: 07/18/20 17:16 Medical records reviewed 07/18/20 17:16 PEG tube was initially replaced about 8 months ago, has been exchanged about 4 months ago Reevaluation #2: 07/18/20 17:16 Patient tube is removed with balloon failure, will be replaced Medical Decision Making - Medical Decision Making 64 male DF for evaluation with PEG tube failure. Patient PEG tube has been replaced works appropriately patient can be discharged - Radiology Data Radiology results: report reviewed (X-ray KUB is positive for PEG tube placement), image reviewed Disposition Clinical Impression: Abdominal pain, PEG tube malfunction Disposition: HOME SELF-CARE Condition: Good Instructions (If sedation given, give patient instructions): PEG Tube Insertion (DC) Is patient prescribed a controlled substance at d/c from ED?: No Referrals: Jay Sánchez MD [Primary Care Provider] - 1-2 days
[2020-07-18] MEDS ORDERED: LIDOCAINE URO-JET JELLY 2% 5 ML KIT URETHRAL ONE (16:57)
[2020-07-18 19:32] VITALS: BP 137/71; PULSE 75
--- NOTE | 2020-07-18 19:36 | XR ---
EXAMINATION TYPE: XR KUB DATE OF EXAM: 07/18/2020 COMPARISON: NONE HISTORY: Check PEG tube TECHNIQUE: 20 mL of Isovue was injected into the PEG tube. FINDINGS: There is contrast opacification apparently of the gastric antrum. There is no evidence of c ontrast extravasation. There is inferior vena cava filter. Bowel gas pattern is normal. There is no s ign of intestinal obstruction or pneumoperitoneum. IMPRESSION: Gastrostomy tube appears to be in good position in the body of the stomach. No evidence o f leakage.
== END 2020-07-18 20:18 | disposition home or self-care (01) ==
LOC: EC 16:16
DX: K94.23 Gastrostomy malfunction (principal); F41.9 Anxiety disorder, unspecified; F32.9 Major depressive disorder, single episode, unspecified; I48.91 Unspecified atrial fibrillation; K21.9 Gastro-esophageal reflux disease without esophagitis; E78.5 Hyperlipidemia, unspecified; I10 Essential (primary) hypertension; Z79.01 Long term (current) use of anticoagulants; Z79.899 Other long term (current) drug therapy; Z87.891 Personal history of nicotine dependence; Z86.711 Personal history of pulmonary embolism; Z85.828 Personal history of other malignant neoplasm of skin; Z85.89 Personal history of malignant neoplasm of other organs and systems; Z86.718 Personal history of other venous thrombosis and embolism; Z92.3 Personal history of irradiation; Z88.6 Allergy status to analgesic agent; Z88.8 Allergy status to other drugs, medicaments and biological substances
CPT/HCPCS: 74018; 99284; 96372; 43762; J1170

== ENCOUNTER → 2020-08-21 | Outpatient (CLI) | payer MEDICARE ==
--- NOTE | 2020-08-22 07:47 | CT ---
EXAMINATION TYPE: CT neck chest w con DATE OF EXAM: 08/21/2020 COMPARISON: 06/24/2020 HISTORY: Follow up for CA CT DLP: 740.9 mGycm CONTRAST: Patient injected with 100 mL of Isovue 300. TECHNIQUE: Axial images at 3 mm thick sections. Reconstructed images in the coronal plane and sagitt al plane are reviewed. FINDINGS: Limited CT sections are obtained the lung apices. There is mild stranding within the bilat eral lung apices. Bilateral lung apical calcification is present. Tracheostomy tube is present CT neck: The torus tubarius and fossa of Rosenmuller are normal. Lift Driver spaces are normal. Righ t maxillary sinus contains mucosal thickening with possible air-fluid level. Remaining visualized par anasal sinuses are clear. Mastoid air cells are clear Parotid glands appear normal and symmetrical. Submandibular glands, are normal. Parapharyngeal spac es are normal. No suspicious adenopathy is evident. Vocal cord level is asymmetric and narrowed. The previous masslike area on the posterior lateral left lower hypopharynx is similar. Right-sided vocal cord is more midline than left. This area is stable from comparison Thyroid as visualized is normal. Degenerative changes are through the thoracic spine IMPRESSIONS: 1. Stable appearance of laryngeal neoplasm. 2. Tracheostomy tube in the midline. 3. Chronic apical lung scarring with calcification. EXAMINATION TYPE: CT neck chest w con DATE OF EXAM: 08/21/2020 COMPARISON: 01/04/2020 HISTORY: Follow up for CA CT DLP: 740.9 mGycm, Automated exposure control for dose reduction was used. CONTRAST: Performed injected with 100 mL of Isovue 300. TECHNIQUE: Axial images were obtained at 5 mm thick sections. Reconstructed images are reviewed on [facility] computer in the coronal plane. FINDINGS: Portion of the thyroid visualized is normal. Bilateral apical scarring with calcification is present in the lung mcgovern. Azygos fissure is present , normal variant. There is some streak opacity in the posterior right lung base. This may measure up to 1.0 cm in width . This has developed prior study and may be related atelectasis. Previous left pleural effusion has r esolved. No enlarged mediastinal or hilar adenopathy is evident. The ascending aorta diameter at the level o f the main pulmonary artery is 3.0 cm. The main pulmonary artery diameter at the bifurcation is 2.[address] sections are obtained through the upper abdomen. Abdomen is essentially unremarkable. IMPRESSIONS: 1. Streak opacity in the posterior right lung base may be atelectasis. Follow-up however is recommend ed. This is new from December 2019. 2. Chronic appearing changes. No suspicious acute changes otherwise evident suggest metastasis.
== END | disposition home or self-care (01) ==
LOC: RADCTMAIN 16:49
PROVIDERS: ATTEND Otolaryngology
DX: R91.8 Other nonspecific abnormal finding of lung field (principal); C32.9 Malignant neoplasm of larynx, unspecified; C32.0 Malignant neoplasm of glottis; Z87.891 Personal history of nicotine dependence; Z92.21 Personal history of antineoplastic chemotherapy; Z93.0 Tracheostomy status; Z88.8 Allergy status to other drugs, medicaments and biological substances; Z88.6 Allergy status to analgesic agent
CPT/HCPCS: 82565; 84520; 70491; 71260; 36415; Q9967

== ENCOUNTER → 2020-11-28 | Outpatient (CLI) | payer MEDICARE ==
[2020-11-28 13:30] LABS: Anisocytosis Slight; Basophils % (A) 0 %; Eosinophils # (A) 0.2 k/uL (0-0.7); Eosinophils % (A) 3 %; HCT 32.8 % (39.0-53.0); HGB 10.1 gm/dL (13.0-17.5); Hypochromasia Marked; Lymphocytes # (A) 0.7 k/uL (1.0-4.8); Lymphocytes % (A) 9 %; MCH 24.7 pg (25.0-35.0); MCHC 30.8 g/dL (31.0-37.0); MCV 80.4 fL (80.0-100.0); Mean Platelet Volume 7.7; Monocytes # (A) 0.6 k/uL (0-1.0); Monocytes % (A) 8 %; Neutrophils % (A) 79 %; Platelet Count 304 k/uL (150-450); RBC 4.08 m/uL (4.30-5.90); RDW 16.5 % (11.5-15.5); WBC 7.6 k/uL (3.8-10.6)
[2020-11-28 14:19] LABS: Albumin 3.9 g/dL (3.5-5.0); Calcium 9.4 mg/dL (8.4-10.2); Potassium 4.5 mmol/L (3.5-5.1); Total Bilirubin 0.5 mg/dL (0.2-1.3); Total Protein 7.4 g/dL (6.3-8.2)
--- NOTE | 2020-12-01 09:38 | CT ---
EXAMINATION TYPE: CT neck chest w con DATE OF EXAM: 11/28/2020 COMPARISON: 08/21/2020 HISTORY: Laryngeal cancer. CT DLP: 599.4 mGycm CONTRAST: Patient injected with 80 mL of Isovue M300. TECHNIQUE: Axial images at 3 mm thick sections. Reconstructed images in the coronal plane and sagitt al plane are reviewed. FINDINGS: Limited CT sections are obtained the lung apices. Some emphysematous changes are within th e lung apices. Azygos fissure is present. Apical scarring is present bilaterally. Tracheostomy tube is in the midline with the tip above caity. CT neck: The torus tubarius and fossa of Rosenmuller are normal. Cane Burner spaces are normal. There is near complete opacification of the right maxillary sinus. Some mild mucosal thickenings within et hmoid air cells. Sphenoid sinuses are clear. Mastoid air cells are clear. Mild mucosal thickening is within the left maxillary sinus. There may be some fluid debris within the posterior nasopharynx and within the hypopharynx. Soft tiss ue thickening may be present within the hypopharynx. This is ill-defined but appears to be worsening from the comparison. Parotid glands appear normal and symmetrical. Submandibular glands, are normal. Parapharyngeal spac es are normal. No suspicious adenopathy is evident. There may be some soft tissue swelling through t he neck slightly greater on the right than the left. Osseous structures are normal. IMPRESSIONS: 1. Opacification with debris-filled hypopharynx to the level of the larynx. 2. Superficial subcutaneous soft tissue swelling. 3. Diffuse thickening within the soft tissues of the hypopharynx worsening from comparison. EXAMINATION TYPE: CT neck chest w con DATE OF EXAM: 11/28/2020 COMPARISON: 08/21/2020 HISTORY: Laryngeal cancer. CT DLP: 599.4 mGycm, Automated exposure control for dose reduction was used. CONTRAST: Performed injected with 80 mL of Isovue M300. TECHNIQUE: Axial images were obtained at 5 mm thick sections. Reconstructed images are reviewed on [facility] computer in the coronal plane. FINDINGS: Thyroid is not visualized. There is bilateral apical thickening with calcification. This ap pears stable from the comparison. Emphysematous changes are within the upper lung mcgovern. There is some streak opacity within the right lower lobe may be some atelectasis. There is elevation of the right diaphragm. No enlarged mediastinal or hilar adenopathy is evident. The ascending aorta diameter at the level o f the main pulmonary artery is 3.1 cm. The main pulmonary artery diameter at the bifurcation is 2.[address] sections are obtained through the upper abdomen. Abdomen is essentially unremarkable. IMPRESSIONS: 1. No suspicious changes to suggest metastatic disease to the chest. 2. Streak opacity right lung base likely on the basis of atelectasis. 3. Tracheostomy tube in the midline
== END | disposition home or self-care (01) ==
LOC: RADCTMAIN 12:52
PROVIDERS: ATTEND Otolaryngology
DX: C32.9 Malignant neoplasm of larynx, unspecified (principal); R91.8 Other nonspecific abnormal finding of lung field; C32.0 Malignant neoplasm of glottis; Z87.891 Personal history of nicotine dependence; Z92.21 Personal history of antineoplastic chemotherapy; Z93.0 Tracheostomy status; R74.8 Abnormal levels of other serum enzymes; I10 Essential (primary) hypertension; I48.91 Unspecified atrial fibrillation; Z98.890 Other specified postprocedural states; M79.9 Soft tissue disorder, unspecified
CPT/HCPCS: 80053; 84443; 85025; 70491; 71260; 36415; Q9967

== ENCOUNTER 2021-01-05 12:42 | Inpatient (IN) | payer MEDICARE ==
--- NOTE | 2021-01-05 13:07 | ED ---
General Adult HPI - General Chief complaint: Skin/Abscess/Foreign Body Stated complaint: drainage Time Seen by Provider: 01/05/21 12:48 Source: patient, family, RN notes reviewed Mode of arrival: ambulatory Limitations: no limitations - History of Present Illness Initial comments: Patient is a pleasant 65-year-old male presenting to the emergency department with family with concerns for drainage from the right side of the neck. Onset of symptoms was today. 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 This morning patient started having drainage from the right side. Patient is a poor historian and majority of history comes from family. Patient originally denies discomfort however during examination appears uncomfortable and does agree that it is. No fevers at home. Patient denies dyspnea. - Related Data Home Medications Medication Instructions Recorded Confirmed Atorvastatin [Lipitor] 20 mg PEG/G-TUBE HS 07/05/18 01/05/21 Famotidine 20 mg PEG/G-TUBE DAILY 02/21/20 01/05/21 Thiamine [Vitamin B-1] 100 mg PEG/G-TUBE DAILY 02/21/20 01/05/21 Apixaban [Eliquis] 5 mg PEG/G-TUBE BID 03/14/20 01/05/21 Diltiazem Oral [Cardizem] 60 mg PEG/G-TUBE BID 03/14/20 01/05/21 Metoprolol Tartrate [Lopressor] 100 mg PEG/G-TUBE BID 03/14/20 01/05/21 QUEtiapine [SEROquel] 50 mg PEG/G-TUBE BID 03/14/20 01/05/21 Furosemide [Lasix] 20 mg PEG/G-TUBE DAILY 04/23/20 01/05/21 Levothyroxine Sodium [Synthroid] 50 mcg PEG/G-TUBE [id number] 01/05/21 01/05/21 Potassium Chloride Oral Liquid 20 meq PEG/G-TUBE DAILY 01/05/21 01/05/21 Sertraline [Zoloft] 50 mg PEG/G-TUBE BID 01/05/21 01/05/21 Allergies Allergy/AdvReac Type Severity Reaction Status Date / Time lisinopril Allergy Swelling Verified 01/05/21 14:10 acetaminophen [From Tylenol] AdvReac LIVER Verified 01/05/21 14:10 PROBLEMS PER NSAIDS (Non-Steroidal AdvReac LIVER Verified 01/05/21 14:10 Anti-Inflamma PROBLEMS PER Review of Systems ROS Statement: Those systems with pertinent positive or pertinent negative responses have been documented in the HPI. ROS Other: All systems not noted in ROS Statement are negative. Constitutional: Denies: fever, chills Eyes: Denies: eye pain ENT: Reports: as per HPI Respiratory: Denies: cough, dyspnea Cardiovascular: Denies: chest pain Endocrine: Denies: fatigue Gastrointestinal: Denies: abdominal pain Genitourinary: Denies: dysuria Musculoskeletal: Denies: back pain Skin: Reports: as per HPI, rash Neurological: Denies: weakness Past Medical History Past Medical History: Atrial Fibrillation, Cancer, COPD, Deep Vein Thrombosis (DVT), GERD/Reflux, Hyperlipidemia, Hypertension, Liver Disease, Pneumonia, Pulmonary Embolus (PE) Additional Past Medical History / Comment(s): Arthritis, skin cancer & vocal cord cancer, PEG and tracheostomy., recent hospitalization at [facility] for pneumonia, resp failure & a-fib- discharged 03/05/20., Pressure ulcer right heel- visiting nurse., taking popsicles and icecream bars and drinking some liquids by mouth., states continuous tube feedings. states he will start radiation tx 03/17/20. History of Any Multi-Drug Resistant Organisms: None Reported Past Surgical History: Unable to Obtain Additional Past Surgical History / Comment(s): COLONOSCOPY, tracheostomy, peg tube. , IVC filter. cataracts Past Anesthesia/Blood Transfusion Reactions: No Reported Reaction Past Psychological History: Anxiety, Depression Smoking Status: Former smoker Past Alcohol Use History: None Reported, Daily Past Drug Use History: None Reported, Marijuana - Past Family History Mother Family Medical History: Hypertension Father History Unknown: Yes Family Medical History: Hypertension General Exam Limitations: no limitations General appearance: alert, in no apparent distress Head exam: Present: atraumatic Eye exam: Present: normal appearance Neck exam: Present: other (Tracheotomy present. Patient does have right-sided incision with erythema and some mild swelling and moderate tenderness. There is moderate greenish thick discharge) Respiratory exam: Present: normal lung sounds bilaterally Cardiovascular Exam: Present: regular rate, normal rhythm GI/Abdominal exam: Present: soft. Absent: tenderness Extremities exam: Present: normal inspection Neurological exam: Present: alert Psychiatric exam: Present: normal affect, normal mood Skin exam: Present: erythema (Right-sided neck) Course Vital Signs 01/05/21 12:45 Temperature 98.7 F Pulse Rate 82 Respiratory 22 Rate Blood Pressure 96/50 O2 Sat by Pulse 98 Oximetry EKG Findings - EKG Comments: EKG Findings:: Normal sinus rhythm at 76. IA 186. QRS 72. QT 358. QTC 402. Normal axis. Normal QRS. Nonspecific T waves. Medical Decision Making - Medical Decision Making Patient reevaluated. Patient and family updated. Case was discussed with Dr. Rizzo, who will admit covering with Dr. Sánchez. Consults will be placed for ENT and infectious disease. - Lab Data Result diagrams: 01/05/21 13:38 01/05/21 13:38 Lab Results 01/05/21 01/05/21 01/05/21 Range/Units 13:38 13:38 13:38 WBC 9.1 (3.8-10.6) k/uL RBC 4.28 L (4.30-5.90) m/uL Hgb 10.2 L (13.0-17.5) gm/dL Hct 31.9 L (39.0-53.0) % MCV 74.5 L D (80.0-100.0) fL MCH 23.9 L (25.0-35.0) pg MCHC 32.1 (31.0-37.0) g/dL RDW 16.3 H (11.5-15.5) % Plt Count 375 (150-450) k/uL MPV 8.1 Neutrophils % 80 % Lymphocytes % 8 % Monocytes % 10 % Eosinophils % 1 % Basophils % 0 % Neutrophils # 7.2 (1.3-7.7) k/uL Lymphocytes # 0.7 L (1.0-4.8) k/uL Monocytes # 0.9 (0-1.0) k/uL Eosinophils # 0.1 (0-0.7) k/uL Basophils # 0.0 (0-0.2) k/uL Hypochromasia Slight Anisocytosis Slight Microcytosis Slight PT 11.2 (9.0-12.0) sec INR 1.1 (<1.2) APTT 23.9 (22.0-30.0) sec Sodium 136 L (137-145) mmol/L Potassium 4.2 (3.5-5.1) mmol/L Chloride 100 (98-107) mmol/L Carbon Dioxide 25 (22-30) mmol/L Anion Gap 11 mmol/L BUN 35 H (9-20) mg/dL Creatinine 1.26 H (0.66-1.25) mg/dL Est GFR (CKD-EPI)AfAm 68 (>60 ml/min/1.73 sqM) Est GFR (CKD-EPI)NonAf 59 (>60 ml/min/1.73 sqM) Glucose 90 (74-99) mg/dL Plasma Lactic Acid Bill (0.7-2.0) mmol/L Calcium 9.4 (8.4-10.2) mg/dL Total Bilirubin 0.6 (0.2-1.3) mg/dL AST 32 (17-59) U/L ALT 19 (4-49) U/L Alkaline Phosphatase 143 H (38-126) U/L Total Protein 7.0 (6.3-8.2) g/dL Albumin 3.6 (3.5-5.0) g/dL 01/05/21 Range/Units 13:38 WBC (3.8-10.6) k/uL RBC (4.30-5.90) m/uL Hgb (13.0-17.5) gm/dL Hct (39.0-53.0) % MCV (80.0-100.0) fL MCH (25.0-35.0) pg MCHC (31.0-37.0) g/dL RDW (11.5-15.5) % Plt Count (150-450) k/uL MPV Neutrophils % % Lymphocytes % % Monocytes % % Eosinophils % % Basophils % % Neutrophils # (1.3-7.7) k/uL Lymphocytes # (1.0-4.8) k/uL Monocytes # (0-1.0) k/uL Eosinophils # (0-0.7) k/uL Basophils # (0-0.2) k/uL Hypochromasia Anisocytosis Microcytosis PT (9.0-12.0) sec INR (<1.2) APTT (22.0-30.0) sec Sodium (137-145) mmol/L Potassium (3.5-5.1) mmol/L Chloride (98-107) mmol/L Carbon Dioxide (22-30) mmol/L Anion Gap mmol/L BUN (9-20) mg/dL Creatinine (0.66-1.25) mg/dL Est GFR (CKD-EPI)AfAm (>60 ml/min/1.73 sqM) Est GFR (CKD-EPI)NonAf (>60 ml/min/1.73 sqM) Glucose (74-99) mg/dL Plasma Lactic Acid Bill 1.2 (0.7-2.0) mmol/L Calcium (8.4-10.2) mg/dL Total Bilirubin (0.2-1.3) mg/dL AST (17-59) U/L ALT (4-49) U/L Alkaline Phosphatase (38-126) U/L Total Protein (6.3-8.2) g/dL Albumin (3.5-5.0) g/dL - Radiology Data Radiology results: report reviewed (Computed tomography scan shows opacification with debris through the hypopharynx and posterior nasopharynx similar to previous. Drainage track extending right neck may be present. Discrete abscess is not identified.), image reviewed (Chest x-ray reveals no acute process.) Disposition Clinical Impression: Cellulitis of neck Disposition: ADMITTED IP TO THIS HOSP Is patient prescribed a controlled substance at d/c from ED?: No Referrals: Jay Sánchez MD [Primary Care Provider] - 1-2 days Decision Time: 15:48
[2021-01-05 14:29] LABS: Albumin 3.6 g/dL (3.5-5.0); Calcium 9.4 mg/dL (8.4-10.2); Potassium 4.2 mmol/L (3.5-5.1); Total Bilirubin 0.6 mg/dL (0.2-1.3)
[2021-01-05 14:32] LABS: INR 1.1 (<1.2); Partial Thromboplastin Time 23.9 sec (22.0-30.0); Prothrombin Time 11.2 sec (9.0-12.0)
[2021-01-05 14:36] LABS: Anisocytosis Slight; Basophils % (A) 0 %; Eosinophils # (A) 0.1 k/uL (0-0.7); Eosinophils % (A) 1 %; HCT 31.9 % (39.0-53.0); HGB 10.2 gm/dL (13.0-17.5); Hypochromasia Slight; Lymphocytes # (A) 0.7 k/uL (1.0-4.8); Lymphocytes % (A) 8 %; MCH 23.9 pg (25.0-35.0); MCHC 32.1 g/dL (31.0-37.0); Mean Platelet Volume 8.1; Microcytosis Slight; Monocytes # (A) 0.9 k/uL (0-1.0); Monocytes % (A) 10 %; Neutrophils # (A) 7.2 k/uL (1.3-7.7); Neutrophils % (A) 80 %; Platelet Count 375 k/uL (150-450); RBC 4.28 m/uL (4.30-5.90); RDW 16.3 % (11.5-15.5); WBC 9.1 k/uL (3.8-10.6)
--- NOTE | 2021-01-05 14:37 | XR ---
EXAMINATION TYPE: XR chest 2V DATE OF EXAM: 01/05/2021 COMPARISON: CT 11/28/2020, chest x-ray 03/04/2020 HISTORY: Cough TECHNIQUE: Frontal and lateral views of the chest are obtained. FINDINGS: Tracheostomy tube is overlying the tracheal air column, there are surgical clips at the th oracic inlet level. Patient is rotated, no evident pneumothorax. Prominent lung volumes suggest under lying COPD. Aorta is dense. No evident airspace disease or pleural effusion. Inferior vena cava filte r shows a possible tilt. Compression deformity noted at the midthoracic spine is chronic at T7. There is an azygos lobe noted. Calcified apical pleural thickening noted. There are coronary artery calcif ications. IMPRESSION: No acute cardiopulmonary process. Emphysema. Chronic thoracic compression deformity T7. Additional findings above.
[2021-01-05 14:38] LABS: MCV 74.5 fL (80.0-100.0)
--- NOTE | 2021-01-05 15:11 | CT ---
EXAMINATION TYPE: CT soft tissue neck w con DATE OF EXAM: 01/05/2021 COMPARISON: 11/28/2020 HISTORY: Right sided neck drainage today. CT DLP: 287.4 mGycm CONTRAST: Patient injected with 80 mL of Isovue 300. TECHNIQUE: Axial images at 3 mm thick sections. Reconstructed images in the coronal plane and sagitt al plane are reviewed. FINDINGS: Limited CT sections are obtained the lung apices. There is some scarring at the right apex . An azygos fissure is present. The patient is intubated with the tip of the tracheostomy tube above the caity. CT neck: The torus tubarius and fossa of Rosenmuller are normal. Sas Etl Developer spaces are normal. Ther e is opacification through scattered ethmoid air cells and the right maxillary sinus. Posterior nasop harynx fluid appears to be present. There is fluid-filled and hypopharynx. Larynx is not identified. There is diffuse soft tissue swellin g through the neck. Parotid glands appear within normal limits. Submandibular glands as visualized are normal. Parapharyn geal spaces appear normal. There is poor visualization of the torus tubarius and fossa of Rosenmuller . Scattered small air collections are within the region of the hypopharynx. This extends into the soft tissues of the neck. The most lateral, series 201 image 59 and series 201 image 57, could suggest tra ct to the skin surface. Discrete defined abscess is not identified. There is a compression deformity in the region of T7. Vertebral body heights are otherwise preserved. Findings appears similar to 11/28/2020 IMPRESSIONS: 1. Opacification with debris through the hypopharynx and posterior nasal pharynx somewhat similar to the comparison study of November 2020. 2. Drainage tract extending to the right neck may be present. This would extend from the hypopharynx although a discrete defined abscess is not identified.
[2021-01-05] MEDS ORDERED: NALOXONE 0.4 MG/ML 1 ML VIAL IV PRN (15:49)
[2021-01-05] MEDS ORDERED: AMPICILLIN-SULBACTAM 3 GM in SODIUM CHLORIDE 0.9% 100 ML IVPB STA (15:52)
[2021-01-05] MEDS ORDERED: VANCOMYCIN IV PER PHARMACY 1 EACH MISC MISCELLANE PRN (15:52)
[2021-01-05] MEDS ORDERED: VANCOMYCIN 1,250 MG in SODIUM CHLORIDE 0.9% 250 ML IVPB STA (16:01)
[2021-01-05] MEDS: SODIUM CHLORIDE 0.9% 1,000 ML IV SCH (16:14)
[2021-01-05] MEDS: IPRATROPIUM-ALBUTEROL 3 ML NEB INHALATION SCH (20:52)
[2021-01-05] MEDS: APIXABAN 5 MG TAB PEG/G-TUBE SCH (22:13)
[2021-01-05] MEDS: ATORVASTATIN 20 MG TAB PEG/G-TUBE SCH (22:13)
[2021-01-05] MEDS: METOPROLOL TARTRATE 50 MG TAB PEG/G-TUBE SCH (22:13)
[2021-01-05] MEDS: DILTIAZEM ORAL 60 MG TAB PEG/G-TUBE SCH (22:13)
[2021-01-05] MEDS: QUEtiapine 50 MG TAB PEG/G-TUBE SCH (22:14)
[2021-01-05] MEDS: SERTRALINE 50 MG TAB PEG/G-TUBE SCH (22:15)
[2021-01-05] MEDS: AMPICILLIN-SULBACTAM 3 GM in SODIUM CHLORIDE 0.9% 100 ML IVPB SCH (23:47)
[2021-01-06] MEDS ORDERED: AMPICILLIN-SULBACTAM 3 GM in SODIUM CHLORIDE 0.9% 100 ML IVPB SCH ×2
[2021-01-06] MEDS: IPRATROPIUM-ALBUTEROL 3 ML NEB INHALATION SCH ×6 (00:50→20:47)
[2021-01-06] MEDS: AMPICILLIN-SULBACTAM 3 GM in SODIUM CHLORIDE 0.9% 100 ML IVPB SCH ×4 (06:04→23:35)
--- NOTE | 2021-01-06 06:41 | CONS ---
CONSULTATION DATE OF SERVICE: 01/05/2021 REASON FOR CONSULTATION: Neck abscess with cellulitis. HISTORY OF PRESENT ILLNESS: The patient is a 65-year-old male with a past medical history significant for laryngeal cancer in this patient who is status post surgery done at [facility]. The patient did have resection of the larynx, thyroid and lymph nodes followed by radiation and chemotherapy. The patient has now been brought to the ER at [facility] for evaluation of a drainage from the right side of the neck. History which was provided mostly by the mentioned that the right side of the neck has been getting more hard and nodular over the last few days and has been becoming more painful as well. However, the patient was unable to quantify his pain. The area started to drain some purulent secretions that concerned the patient and the family and hence he was brought to the hospital. There is no clear documentation of any fever. With these symptoms, the patient was evaluated by the ER physician. On arrival to the ER, the patient was afebrile. The patient did have a white count of 9.1, creatinine was 1.26. Rock PCR was negative. The patient did have a soft tissue neck CT with opacification through the hypopharynx and posterior nasopharynx with some worsening noted to the comparison. Drainage tract extending to the right neck may be present with concern for possible abscess. The patient has been started on Unasyn and vancomycin. Infectious Disease was consulted for further management of antibiotic therapy. REVIEW OF SYSTEMS: Positive points have been mentioned in HPI. Rest of the systems are negative. MEDICAL HISTORY: Atrial fibrillation, COPD, DVT, gastroesophageal reflux disease, hyperlipidemia, hypertension, pulmonary embolism, history of laryngeal cancer. PAST SURGICAL HISTORY: Resection of laryngeal cancer, PEG tube and tracheostomy. SOCIAL HISTORY: Remote history of smoking. No drinking. Does admit to marijuana use. FAMILY HISTORY: Both parents with history of hypertension. ALLERGIES: LISINOPRIL, TYLENOL, MOST OF ANTIINFLAMMATORY MEDICATIONS. MEDICATION: The patient is currently on DuoNeb, Unasyn 3 g q.8h, Eliquis, Lipitor, Cardizem, Pepcid, Synthroid, Lopressor, Narcan, Seroquel, Zoloft, vitamin B1, and vancomycin, Pharmacy to dose. PHYSICAL EXAMINATION: VITAL SIGNS: Blood pressure 135/71 with a pulse of 71, temperature 98.5, he is 99% on room air. GENERAL DESCRIPTION: Patient is an elderly male lying in bed in no distress. No tachypnea or accessory muscles of respiration use. HEENT: Examination shows slight pallor, no scleral icterus. Oral mucous membrane is dry. No pharyngeal erythema or thrush. NECK: Trachea central, no thyromegaly. The patient did have a draining sinus on the right side of the neck. The area was slightly indurated and tender to touch. LUNGS: Unlabored breathing, clear to auscultation. HEART: S1-S2, regular rate and rhythm. ABDOMEN: Soft, no tenderness. No guarding or rigidity. EXTREMITIES: No edema of the feet. SKIN: No rash or mass palpable. NEUROLOGICAL: Patient is awake, alert, oriented times two. Mood and affect normal. LABS: Hemoglobin is 10.2 with white count of 9.1. BUN of 35, creatinine 1.26. Liver enzymes are normal. Rock PCR was negative. DIAGNOSTIC IMPRESSION: Patient admitted to the hospital with a draining sinus on the right side of the neck in this patient who did have a history of an ENT laryngeal cancer status post laryngeal, thyroidectomy and lymph node resection, as well as chemo and radiation therapy with concern for possible recurrence of his tumor as the patient not behaving as an abscess with absence of any fever or elevated white count. An underlying draining sinus and abscess not entirely excluded. PLAN: 1. Patient to continue with vancomycin, Pharmacy to dose target of 15 while watching kidney function closely and Unasyn 3 g q.6h. 2. Local wound culture and blood cultures will be followed. 3. Await ENT evaluation and possible drainage and deep culture. 4. We will follow on his clinical condition and culture to further adjust medication if needed. Thank you for this consultation. Will follow this patient along with you. MMODL / IJN: [id number] /
[2021-01-06] MEDS: VANCOMYCIN 1,250 MG in SODIUM CHLORIDE 0.9% 250 ML IVPB SCH (08:47)
[2021-01-06] MEDS: APIXABAN 5 MG TAB PEG/G-TUBE SCH ×2 (09:17→20:41)
[2021-01-06] MEDS: METOPROLOL TARTRATE 50 MG TAB PEG/G-TUBE SCH ×2 (09:17→20:42)
[2021-01-06] MEDS: LEVOTHYROXINE 50 MCG TAB PEG/G-TUBE SCH (09:17)
[2021-01-06] MEDS: FAMOTIDINE 20 MG TAB PEG/G-TUBE SCH (09:17)
[2021-01-06] MEDS: DILTIAZEM ORAL 60 MG TAB PEG/G-TUBE SCH ×2 (09:17→20:42)
[2021-01-06] MEDS: THIAMINE 100 MG TAB PEG/G-TUBE SCH (09:18)
[2021-01-06] MEDS: SERTRALINE 50 MG TAB PEG/G-TUBE SCH ×2 (09:18→20:41)
[2021-01-06] MEDS: QUEtiapine 50 MG TAB PEG/G-TUBE SCH ×2 (09:18→20:43)
[2021-01-06] MEDS ORDERED: VANCOMYCIN IV PER PHARMACY 1 EACH MISC MISCELLANE PRN (11:17)
[2021-01-06] MEDS: SODIUM CHLORIDE 0.9% 1,000 ML IV SCH ×3 (12:17→21:44)
[2021-01-06] MEDS: ATORVASTATIN 20 MG TAB PEG/G-TUBE SCH (20:41)
[2021-01-06] MEDS ORDERED: MORPHINE SULFATE 2 MG/ML SYRINGE IVP PRN (21:18)
[2021-01-07] MEDS: VANCOMYCIN 1,250 MG in SODIUM CHLORIDE 0.9% 250 ML IVPB SCH ×2 (00:03→15:05)
--- NOTE | 2021-01-07 00:23 | P.HPIM ---
History of Present Illness H&P Date: 01/06/21 Chief Complaint: Draining from the right side of the neck History of presenting complaint: This is a 65-year-old patient of Dr. Sánchez. 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 Patient did receive chemoradiation and also had surgery. Patient has a resultant PEG tube and a tracheostomy tube. Patient apparently is able to swallow small pills and water. Patient has secondary lymphedema of the face and neck secondary to the eagle ngectomy. Patient has a past history of alcohol use but not so for last 1 year. He has a rolling walker. He does attend physical therapy. He stopped smoking last year. Patient himself is not able to give much of her history. is not present. Patient presents with drainage through wound on the right side of the neck. Is not able to tell me does any fever and chills. 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 Has a rolling walker. Started smoking as a teen and stopped in 2019. Used to drink 3 beers a day but stopped one year ago. Physical examination: VITAL SIGNS: 98.7, 82, 22, 1 36 x 57, 99% room air GENERAL: BMI 20.1, laying in bed, tired. EYES: Pupils equal. Conjunctiva normal. HEENT: That is swelling of the lower part of the face and neck. There is a wound on the right side of the neck that is draining. Tracheostomy . NECK: JVD unable to assess; as above. HEART: First and second heart sounds are normal; no edema. LUNGS: Respiratory rate normal; decreased breath sounds. ABDOMEN: Soft, nontender, liver spleen not palpable, no masses palpable. PEG tube PSYCH: Patient can answer questions but difficult to communicate as not really able to speakl. NEUROLOGICAL: Facial asymmetry because of prior surgery. Power and sensation grossly intact. LYMPHATICS: No lymph nodes palpable in the axilla INVESTIGATIONS, reviewed in the clinical context: WBC 9.1 hemoglobin 10.2 platelets 375 potassium 4.2 bun 35 creatinine 1.26 Coronavirus [PCR]-not detected EKG tracing personally reviewed by me-normal sinus rhythm nonspecific T-wave changes Chest x-ray film personally reviewed by me-overinflation. Chronic T7 compression reported. Some scarring Computed tomography scan of the neck: Opacities patient with debride through the hypopharynx and posterior nasal pharynx somewhat similar to the comparison study ;drainage tract extending to the right neck may be present. Assessment and plan: -This is a patient with prior vocal cord malignancy treated with surgery chemotherapy and radiation. Now presents with draining from the wound of the right neck. Patient may have a hypopharynx abscess which is draining to the surface. Cultures are being sent off. Consultation to ENT infectious disease -History of vocal cord malignancy that was treated with chemotherapy, radiation, surgery -Secondary lymphedema of the head and neck secondary to above malignancy -Paroxysmal atrial fibrillation, currently in sinus rhythm, on eliquis hold for now. Continue with Cardizem -COPD in a ex-smoker -GERD, continue with Pepcid -Essential hypertension, on Lopressor and Synthroid -Hyperlipidemia, on Lipitor -Primary osteoarthritis, ALLERGIES 6 when necessary -Hypothyroid, continue with Synthroid -Anxiety depression otherwise specified, continue with Zoloft -Chronic gait dysfunction does use a rolling walker Cultures are being sent. Patient is on IV vancomycin and IV Unasyn. Consult ation to infectious disease, ENT, consulted dietitian for PEG tube feeding. Patient made nothing by mouth Given the complexity and severity of patient's condition expect the patient to be in the hospital at least for 2 overnights - - Past Medical History Past Medical History: Atrial Fibrillation, Cancer, COPD, Deep Vein Thrombosis (DVT), GERD/Reflux, Hyperlipidemia, Hypertension, Liver Disease, Pneumonia, Pulmonary Embolus (PE) Additional Past Medical History / Comment(s): Arthritis, skin cancer & vocal cord cancer, PEG and tracheostomy., recent hospitalization at [facility] for pneumonia, resp failure & a-fib- discharged 03/05/20., Pressure ulcer right heel- visiting nurse., taking popsicles and icecream bars and drinking some liquids by mouth., states continuous tube feedings. states he will start radiation tx 6/1/20. History of Any Multi-Drug Resistant Organisms: None Reported Past Surgical History: Unable to Obtain Additional Past Surgical History / Comment(s): COLONOSCOPY, tracheostomy, peg tube. , IVC filter. cataracts Past Anesthesia/Blood Transfusion Reactions: No Reported Reaction Past Psychological History: Anxiety, Depression Smoking Status: Former smoker Past Alcohol Use History: None Reported, Daily Past Drug Use History: None Reported, Marijuana - Past Family History Mother Family Medical History: Hypertension Father History Unknown: Yes Family Medical History: Hypertension Medications and Allergies Home Medications Medication Instructions Recorded Confirmed Type Atorvastatin [Lipitor] 20 mg PEG/G-TUBE HS 07/05/18 01/05/21 History Famotidine 20 mg PEG/G-TUBE DAILY 02/21/20 01/05/21 History Thiamine [Vitamin B-1] 100 mg PEG/G-TUBE DAILY 02/21/20 01/05/21 History Apixaban [Eliquis] 5 mg PEG/G-TUBE BID 03/14/20 01/05/21 History Diltiazem Oral [Cardizem] 60 mg PEG/G-TUBE BID 03/14/20 01/05/21 History Metoprolol Tartrate [Lopressor] 100 mg PEG/G-TUBE BID 03/14/20 01/05/21 History QUEtiapine [SEROquel] 50 mg PEG/G-TUBE BID 03/14/20 01/05/21 History Furosemide [Lasix] 20 mg PEG/G-TUBE DAILY 04/23/20 01/05/21 History Levothyroxine Sodium [Synthroid] 50 mcg PEG/G-TUBE [id number] 01/05/21 01/05/21 History Potassium Chloride Oral Liquid 20 meq PEG/G-TUBE DAILY 01/05/21 01/05/21 History Sertraline [Zoloft] 50 mg PEG/G-TUBE BID 01/05/21 01/05/21 History Allergies Allergy/AdvReac Type Severity Reaction Status Date / Time lisinopril Allergy Swelling Verified 01/05/21 14:10 acetaminophen [From Tylenol] AdvReac LIVER Verified 01/05/21 14:10 PROBLEMS PER NSAIDS (Non-Steroidal AdvReac LIVER Verified 01/05/21 14:10 Anti-Inflamma PROBLEMS PER Physical Exam Vitals: Vital Signs Temp Pulse Pulse Resp BP BP Pulse Ox 01/06/21 09:32 82 01/06/21 09:20 79 01/06/21 07:59 98.1 F 78 18 157/73 97 01/06/21 02:00 98.1 F 71 16 134/70 96 01/05/21 20:57 76 01/05/21 20:00 98.4 F 61 16 135/71 99 01/05/21 16:22 79 16 136/67 99 01/05/21 12:45 98.7 F 82 22 96/50 98 Intake and Output 01/05/21 01/06/21 01/06/21 22:59 06:59 14:59 Intake Total 1300 Balance 1300 Intake: Intake, IV Titration 1100 Amount Ampicillin-Sulbactam 3 gm 100 In Sodium Chloride 0.9% 100 ml @ 200 mls/hr IVPB ONCE STA Rx#:[id number] Ampicillin-Sulbactam 3 gm 100 In Sodium Chloride 0.9% 100 ml @ 200 mls/hr IVPB Q6HR [facility] Rx#:[id number] Sodium Chloride 0.9% 1, 900 000 ml @ 75 mls/hr IV . [id number] [facility] Rx#:[id number] Oral 200 Other: Voiding Method Toilet Toilet # Voids 2 1 Results CBC & Chem 7: 01/05/21 13:38 01/05/21 13:38 Labs: Abnormal Lab Results - Last 24 Hours (Table) 01/05/21 01/05/21 01/06/21 Range/Units 13:38 13:38 04:00 RBC 4.28 L (4.30-5.90) m/uL Hgb 10.2 L (13.0-17.5) gm/dL Hct 31.9 L (39.0-53.0) % MCV 74.5 L D (80.0-100.0) fL MCH 23.9 L (25.0-35.0) pg RDW 16.3 H (11.5-15.5) % Lymphocytes # 0.7 L (1.0-4.8) k/uL Sodium 136 L (137-145) mmol/L BUN 35 H (9-20) mg/dL Creatinine 1.26 H (0.66-1.25) mg/dL Alkaline Phosphatase 143 H (38-126) U/L C-Reactive Protein 6.3 H (0.0-0.8) mg/dL Microbiology - Last 24 Hours (Table) 01/05/21 13:38 Gram Stain - Preliminary Neck Wound Culture - Preliminary
--- NOTE | 2021-01-07 01:45 | PN ---
PROGRESS NOTE DATE OF SERVICE: 01/06/2021 REASON FOR FOLLOW UP: Neck abscess. INTERVAL HISTORY: The patient is currently afebrile, has been breathing comfortably. Denies any worsening pain to the right leg area or any worsening drainage. No vomiting or diarrhea has been reported. PHYSICAL EXAMINATION: Blood pressure 193/81 with a pulse of 79, temperature 98.4. He is 97% on room air. General description is a middle-aged male lying in bed in no distress. HEENT examination: Neck area still has an area of swelling, redness, minimal drainage. Lungs: Unlabored breathing. Clear to auscultation anteriorly. Heart S1, S2. Regular rate and rhythm. Abdomen: Soft, no tenderness. LABS: Sedimentation rate is 59, CRP 6.3. Cultures pending. Blood culture so far negative. DIAGNOSTIC IMPRESSION AND PLAN: Patient with drainage from the right side of the neck with this patient did have history of laryngeal cancer status post resection and chemoradiation. Concern for possible recurrence of malignancy versus an abscess. Awaiting ENT evaluation. Patient to continue with Unasyn adjusting depending on results of culture. Continue supportive care. MMODL / IJN: [id number] /
[2021-01-07] MEDS: IPRATROPIUM-ALBUTEROL 3 ML NEB INHALATION SCH ×5 (02:51→16:26)
[2021-01-07] MEDS: SODIUM CHLORIDE 0.9% 1,000 ML IV SCH ×3 (04:43→19:22)
[2021-01-07] MEDS: AMPICILLIN-SULBACTAM 3 GM in SODIUM CHLORIDE 0.9% 100 ML IVPB SCH ×2 (05:32→12:53)
[2021-01-07] MEDS: METOPROLOL TARTRATE 50 MG TAB PEG/G-TUBE SCH (09:20)
[2021-01-07] MEDS: FAMOTIDINE 20 MG TAB PEG/G-TUBE SCH (09:20)
[2021-01-07] MEDS: THIAMINE 100 MG TAB PEG/G-TUBE SCH (09:21)
[2021-01-07] MEDS: APIXABAN 5 MG TAB PEG/G-TUBE SCH (09:21)
[2021-01-07] MEDS: DILTIAZEM ORAL 60 MG TAB PEG/G-TUBE SCH (09:21)
[2021-01-07] MEDS: SERTRALINE 50 MG TAB PEG/G-TUBE SCH (09:21)
[2021-01-07] MEDS: QUEtiapine 50 MG TAB PEG/G-TUBE SCH (09:21)
[2021-01-07] MEDS: LEVOTHYROXINE 50 MCG TAB PEG/G-TUBE SCH (09:21)
[2021-01-07 11:42] VITALS: RESP 14
[2021-01-07 12:25] LABS: African American GFR (CKD) 72.6 (60.0-200.0); Non-African American GFR(CKD) 62.6 (60.0-200.0)
--- NOTE | 2021-01-07 15:40 | PN ---
PROGRESS NOTE DATE OF SERVICE: 01/07/2021. REASON FOR FOLLOWUP: Possible neck abscess. INTERVAL HISTORY: The patient is currently afebrile. Patient is breathing comfortably. No chest pain or cough. No nausea, no vomiting. No abdominal pain, no diarrhea or any worsening pain to the right side of the neck. PHYSICAL EXAMINATION: Blood pressure 124/58 with a pulse of 55, temperature 98.4. He is 94% on room air. General description is an elderly male lying in bed in no distress. HEENT EXAMINATION: Right side neck area swelling and redness, minimal drainage. LUNGS: Unlabored breathing, decreased intensity of breath sounds. No wheeze. HEART: S1, S2. Regular rate and rhythm. ABDOMEN: Soft, no tenderness. LABS: Wound culture now showing Gram-negative bacilli x2. DIAGNOSTIC IMPRESSION AND PLAN: Patient with right-sided neck drainage, concern for an abscess, CT and there was question of possible recurrence of his malignancy. The patient needs I and D, biopsy and cultures. Antibiotic adjusted to Zosyn as the local culture now showing a Gram- negative bacilli. Discontinue vancomycin and Unasyn. Continue supportive care. MMODL / IJN: [id number] /
[2021-01-07] MEDS ORDERED: PIPERACILLIN-TAZOBACTAM 3.375 GM in SODIUM CHLORIDE 0.9% 100 ML IVPB SCH (16:00)
[2021-01-07 16:36] VITALS: BP 167/73; PULSE 66; TEMP 98.2
[2021-01-07] MEDS ORDERED: AMPICILLIN-SULBACTAM 3 GM in SODIUM CHLORIDE 0.9% 100 ML IVPB STA (17:24)
--- NOTE | 2021-01-08 01:01 | CONS ---
CONSULTATION DATE OF CONSULTATION: 01/07/2021. DATE OF PATIENT ADMISSION: 01/05/2021. REASON FOR CONSULTATION: Neck drainage. HISTORY OF PRESENT ILLNESS: The patient is a pleasant 65-year-old male who was admitted via the emergency room on 01/05/2021. The patient is not able to speak because of a recent laryngectomy in , therefore, history is obtained from the patient's . Over the last several days, the patient's stated that the patient had started to exhibit significant swelling of the neck, tenderness and drainage. She does not feel the that the area had drained previously. This patient is well known to me because he was seen in consultation by my service in December of 2019. At that time, the patient was in acute respiratory distress due to partial laryngeal obstruction and was having difficulty breathing. He was subsequently taken to surgery and underwent an emergent tracheostomy. At the same time, he underwent a suspension microlaryngoscopy and triple triple endoscopy. 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 The patient had a history of smoking, but immediately after his diagnosis, he stopped smoking and stopped drinking. He subsequently was referred to [facility] and underwent full course radiation of the larynx and right neck and inductive chemotherapy. He did well, but apparently because of a poor appetite, a PEG tube was inserted. In the interim since I have seen the patient, his lesion became larger(despite treatment) and it was decided the patient would have to undergo a total laryngectomy and a right lateral radical neck dissection. In addition to this, his states that they removed the thyroid gland. The patient was seen by my office last the summer for evaluation of soft tissue swelling anteriorly. However, upon further examination, I felt that was felt that this represented a side effect of his radiation. The soft tissue edema, was exacerbated by the fact that he has had a right radical neck dissection with all of the lymph nodes removed from that side. He was seen in emergency room because of the drainage from the right side of the neck and it is felt that he might possibly have an abscess. A CT scan of the neck only reveals cellulitis and no evidence of any phlegmon or abscess cavity. The patient was admitted and started on Unasyn and vancomycin intravenously. The Infectious Disease Service was also consulted. The patient's original lesion was a clinical stage III that is (cT3, cNM0). Again because the patient's lesion continued to advance, despite radiation and inductive chemotherapy, it was felt that the lesion had advanced to suggest the possibility of a T4 stage and at that point he became a candidate for a laryngectomy and radical neck dissection. PAST MEDICAL HISTORY: Past medical history reveals patient has: ALLERGIES: To LISINOPRIL, NSAIDs, ACETAMINOPHEN. CURRENT MEDICATIONS: Include Lipitor, famotidine, vitamin B1, Eliquis, Cardizem, Lopressor, Seroquel, Lasix, Synthroid, Zoloft, and also supplemental potassium as well as PEG tube feeding. REVIEW OF SYSTEMS: CARDIOVASCULAR is positive for hypertension. RESPIRATORY: Negative. GASTROINTESTINAL: Negative. METABOLIC/ENDOCRINE is positive for hypercholesterolemia and hypothyroidism. The remainder of the review of systems is essentially unremarkable. PHYSICAL EXAMINATION: This patient is a 65-year-old male who is alert and cooperative. The patient is non-vocal because he has had a total laryngectomy and has not been instructed in esophageal speech or the use of the electro larynx. I advised the patient's that most likely at some point once his health improves, they will consider inserting a voice prostheses, possibly a Fe voice prosthesis. This procedure can be done under local anesthesia and we will give the patient a return of his speech. HEENT examination: Patient is normocephalic. Tympanic membranes are normal. Middle ear space is free of any fluid or infection. Pupils equal, round, react to light and accommodation. Extraocular movements within normal limits. Intranasal examination reveals moderate to severe septal deviation with compensatory hypertrophy of the inferior turbinates and a moderate amount of mucus on the mucous membranes and draining down the posterior pharynx. Examination of oropharynx reveals moist mucous membranes. The patient has a laryngectomy tube which was removed temporarily was during this examination and his stomal site appears to be intact. I do not see any evidence of any infection, swelling or edema around the tracheostomy stoma. In addition to this, the patient has what appears to be a fistulous tract in the right lower neck just superior and lateral to the tracheostomy stoma. I was able to get the patient to cooperate and do a Valsalva maneuver and bear down in an effort to see if this would express any of the fluid from the area and it did produce a somewhat whitish fluid, although it did not appear to be purulent material. There is some slight firmness of the tissue secondary to previous irradiation. I do not detect any discrete nodes or neck masses. The patient's laryngectomy tube was reinserted without difficulty. The remainder of the head and neck exam is essentially unremarkable. CHEST/CARDIOVASCULAR: Both lung mcgovern are clear to percussion and auscultation. Patient is in regular sinus rhythm S1, S2 are present. No murmurs, S3s or S4. Remainder of physical exam is unremarkable. IMPRESSION: Right neck fistula, etiology cellulitis ? versus possible thoracic duct fistula with Chyle drainage. Doubt abscess formation based upon the CT scan review. PLAN: I will continue the patient on the present course of his Unasyn and vancomycin. I discussed with Dr. Rizzo and also with the patient's that from ENT standpoint, the patient could be discharged home today because he has an appointment to see his ENT surgeon tomorrow at 1:00 pm. I am going to write a order for the nurses to try and get a sample of the drainage from the patient's neck and send this to the lab to check for amylase and triglycerides. This is the standard way of checking for possible Chyle drainage. This may not be a chylous leak, but certainly that is a consideration because there are times during the dissection of the radical neck that may be this duct or one of its tributaries may be in fact injured. The area was previously cultured. Chylous leak can occur immediately during surgery or several weeks or even several months after the surgical procedure. Unfortunately, if it is Chyle, the substance of the Chyle is quite irritating to the surrounding soft tissues and will cause a severe inflammatory response. I suspect that this might be the cause of his fistula. The patient has remained afebrile and has a fairly normal white cell count,but may have a somewhat suppressed immune system. My considerations regarding this patient's condition were discussed with Dr. Rizzo and with the patient's . All questions were answered. Time spent with patient approximately 30 minutes. I want to take this opportunity to thank you for allowing me to assist in the care of your patient. If I can be of any further assistance, please feel free to call my office. ADDENDUM: Please make sure that if the nurses are able to get a sample of the fluid and send it to the lab that the results are sent to the patient's ENT physician because he would be interested in these results. If in fact if he does have a chylous leak, that generally can be treated with conservative measures with simply compression dressings which should be changed multiple times daily and a reduce fatty intake in his diet or if that fails, then it will require that he be taken back to surgery. His apron flap in his neck would be raised and there are various maneuvers that can be done to detect a Chyle leak which can then be ligated. MMJONAH / ALLEYN: [id number] / JESSEE
[2021-01-08] MEDS ORDERED: VANCOMYCIN TROUGH DUE 1 EACH MISC MISCELLANE ONE (07:00)
--- NOTE | 2021-01-08 12:26 | P.DS ---
Providers Date of admission: 01/05/21 15:50 Expected date of discharge: 01/07/21 Attending physician: Eran Rizzo Consults: 01/05/21 15:51 Consult Physician Urgent Consulting Provider: Baldomero Lawrence Consult Reason/Comments: cellulitis neck Do you want consulting provider notified?: Yes Consult Physician Urgent Consulting Provider: Michael Rasmussen Consult Reason/Comments: cellulitis neck Do you want consulting provider notified?: Yes Primary care physician: [facility] Course: Chief Complaint: Draining from the right side of the neck History of presenting complaint: This is a 65-year-old patient of Dr. Sánchez. 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 Patient did receive chemoradiation and radiation following Laryngectomy August 2021.. Patient has a resultant PEG tube and a tracheostomy tube. Patient apparently is able to swallow small pills and water. 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 Patient has a past history of alcohol use and smoking before the diagnosis of the cancer .. He has a rolling walker. He does attend physical therapy.. Patient himself is not able to give much of her history. Patient presents with drainage through wound on the right side of the neck. No fever no chills. It is more a white drainage. Today-patient was seen by Dr. Baldomero Lawrence from ENT. He thinks this could be a chyle drainage. Patient did get IV Zosyn and vancomycin here. He discussed at length with the patient's and patient is to be discharged later this evening. Patient has appointment with his ENT physician tomorrow and he is to keep that appointment. PEG tube feeding is to continue. I did discuss this with the . Discussion and discharge planning more than 35 minutes Consultation: Dr. Baldomero Lawrence from ENT Dr. Rasmussen from [place] Past medical history to include: Atrial fibrillation, COPD, GERD, hyperlipidemia, hypertension, , hypothyroid, left vocal cord squamous cell cancer treated with chemotherapy, radiation, laryngectomy, decreased oral intake for which patient has got a PEG tube and also has a tracheostomy tube, skin cancer removal from face, lymphedema of the neck and face since laryngectomy, DVT of the right leg and PE, alcohol use but none so for last 1 year, arthritis, anxiety depression Social history: . Has a rolling walker. Started smoking as a teen and stopped if the physician once 2020. Used to drink 3 beers a day but stopped one year ago. Physical examination: VITAL SIGNS: 98.4, 55, 14, 124/58, 94% room air GENERAL: , laying in bed, tired. EYES: Pupils equal. Conjunctiva normal. HEENT: swelling of the lower part of the face and neck. wound on the right side of the neck that is draining. Tracheostomy . NECK: JVD unable to assess; as above. HEART: First and second heart sounds are normal; no edema. LUNGS: Respiratory rate normal; decreased breath sounds. ABDOMEN: Soft, nontender, liver spleen not palpable, no masses palpable. PEG tube PSYCH: Patient can answer questions but difficult to communicate as not really able to speak. NEUROLOGICAL: Facial asymmetry because of prior surgery. Power and sensation grossly intact. LYMPHATICS: No lymph nodes palpable in the axilla INVESTIGATIONS, reviewed in the clinical context: WBC 9.1 hemoglobin 10.2 platelets 375 potassium 4.2 bun 35 creatinine 1.26 Coronavirus [PCR]-not detected EKG tracing personally reviewed by me-normal sinus rhythm nonspecific T-wave changes Chest x-ray film personally reviewed by me-overinflation. Chronic T7 compression reported. Some scarring Computed tomography scan of the neck: Opacities patient with debride through the hypopharynx and posterior nasal pharynx somewhat similar to the comparison study ;drainage tract extending to the right neck may be present. Assessment and plan: -This is a patient with prior vocal cord malignancy treated with surgery c hemotherapy and radiation. Now presents with draining from the wound of the right neck. She was seen by Dr. Lawrence from ENT. He thinks this may be chyle drainage. He feels infectious less likely. Cultures are growing pseudomonas aeruginosa and Klebsiella pneumoniae. Patient did receive IV Unasyn and vancomycin. -History of vocal cord malignancy that was treated with chemotherapy, radiation, surgery -Secondary lymphedema of the head and neck secondary to above malignancy -Paroxysmal atrial fibrillation, currently in sinus rhythm, on eliquis hold for now. Continue with Cardizem -COPD in a ex-smoker -GERD, continue with Pepcid -Essential hypertension, on Lopressor and Synthroid -Hyperlipidemia, on Lipitor -Primary osteoarthritis, ALLERGIES 6 when necessary -Hypothyroid, continue with Synthroid -Anxiety depression otherwise specified, continue with Zoloft -Chronic gait dysfunction does use a rolling walker Disposition: Home with . Patient has an appointment tomorrow with his ENT doctor. Decision to admit or outpatient treatment. - PS: I did leave a message on the patient's 's phone to call me back if the patient's ENT physician wants culture results we can send it to them Patient Condition at Discharge: Good Plan - Discharge Summary Discharge Rx Participant: No New Discharge Prescriptions: Continue Atorvastatin [Lipitor] 20 mg PEG/G-TUBE HS Famotidine 20 mg PEG/G-TUBE DAILY Thiamine [Vitamin B-1] 100 mg PEG/G-TUBE DAILY QUEtiapine [SEROquel] 50 mg PEG/G-TUBE BID Metoprolol Tartrate [Lopressor] 100 mg PEG/G-TUBE BID Diltiazem Oral [Cardizem*] 60 mg PEG/G-TUBE BID Apixaban [Eliquis] 5 mg PEG/G-TUBE BID Furosemide [Lasix] 20 mg PEG/G-TUBE DAILY Levothyroxine Sodium [Synthroid] 50 mcg PEG/G-TUBE AC-BRKFST Potassium Chloride Oral Liquid 20 meq PEG/G-TUBE DAILY Sertraline [Zoloft] 50 mg PEG/G-TUBE BID Discharge Medication List Atorvastatin [Lipitor] 20 mg PEG/G-TUBE HS 07/05/18 [History] Famotidine 20 mg PEG/G-TUBE DAILY 02/21/20 [History] Thiamine [Vitamin B-1] 100 mg PEG/G-TUBE DAILY 02/21/20 [History] Apixaban [Eliquis] 5 mg PEG/G-TUBE BID 03/14/20 [History] Diltiazem Oral [Cardizem*] 60 mg PEG/G-TUBE BID 03/14/20 [History] Metoprolol Tartrate [Lopressor] 100 mg PEG/G-TUBE BID 03/14/20 [History] QUEtiapine [SEROquel] 50 mg PEG/G-TUBE BID 03/14/20 [History] Furosemide [Lasix] 20 mg PEG/G-TUBE DAILY 04/23/20 [History] Levothyroxine Sodium [Synthroid] 50 mcg PEG/G-TUBE AC-BRKFST 01/05/21 [History] Potassium Chloride Oral Liquid 20 meq PEG/G-TUBE DAILY 01/05/21 [History] Sertraline [Zoloft] 50 mg PEG/G-TUBE BID 01/05/21 [History] Follow up Appointment(s)/Referral(s): mary mobley [Other] - 01/08/21 1:00 pm (As previously scheduled. ) Jay Sánchez MD [Primary Care Provider] - 1-2 days (Follow-up appt. to be made by patients following tomorrows appt. ) [facility] [[facility]] - Patient Instructions/Handouts: Cellulitis (DC), Squamous Cell Carcinoma (DC), Tracheotomy (DC), Laryngectomy (DC) Activity/Diet/Wound Care/Special Instructions: Continue NPO status until seen by surgeon tomorrow. (nothing by mouth) Change dressing as needed for drainage r/t neck wound. Discharge Disposition: HOME SELF-CARE
== END 2021-01-07 19:32 | disposition home or self-care (01) | DRG 603 ==
LOC: EC 12:42 → 5NMEDONC 15:50
PROVIDERS: ADMIT Hospitalist; ATTEND Hospitalist
PROC: 3E0G76Z Introduction of Nutritional Substance into Upper GI, Via Natural or Artificial Opening (ICD-10-PCS; principal; 2021-01-05)
DX: L02.11 Cutaneous abscess of neck (principal); J39.1 Other abscess of pharynx; B96.5 Pseudomonas (aeruginosa) (mallei) (pseudomallei) as the cause of diseases classified elsewhere; E89.0 Postprocedural hypothyroidism; E78.5 Hyperlipidemia, unspecified; Z85.21 Personal history of malignant neoplasm of larynx; Z87.891 Personal history of nicotine dependence; Z85.828 Personal history of other malignant neoplasm of skin; F41.8 Other specified anxiety disorders; I10 Essential (primary) hypertension; I48.0 Paroxysmal atrial fibrillation; Z86.73 Personal history of transient ischemic attack (TIA), and cerebral infarction without residual deficits; Z86.718 Personal history of other venous thrombosis and embolism; Z79.01 Long term (current) use of anticoagulants; Z92.21 Personal history of antineoplastic chemotherapy; Z92.3 Personal history of irradiation; J44.9 Chronic obstructive pulmonary disease, unspecified; I89.0 Lymphedema, not elsewhere classified; I89.8 Other specified noninfective disorders of lymphatic vessels and lymph nodes; K21.9 Gastro-esophageal reflux disease without esophagitis; M19.91 Primary osteoarthritis, unspecified site; Z20.822 Contact with and (suspected) exposure to COVID-19; B96.1 Klebsiella pneumoniae [K. pneumoniae] as the cause of diseases classified elsewhere; Z87.01 Personal history of pneumonia (recurrent); Z88.6 Allergy status to analgesic agent; Z79.899 Other long term (current) drug therapy; Z82.49 Family history of ischemic heart disease and other diseases of the circulatory system; Z86.711 Personal history of pulmonary embolism; Z93.0 Tracheostomy status; Z93.1 Gastrostomy status; Z79.890 Hormone replacement therapy; Z90.02 Acquired absence of larynx
CPT/HCPCS: 36415; 70491; 71046; 80053; 82565; 83605; 85025; 85610; 85652; 85730; 86140; 87040; 87070; 87077; 87186; 87205; 87635; 93005; 94640; 99285